=== PATIENT | male | born 1965 | race Caucasian/White ===

== ENCOUNTER 2020-09-19 11:12 | Inpatient (IN) | payer OTHER, SELFPAY ==
[2020-09-19 11:22] VITALS: PULSE 77; RESP 18; TEMP 36.3; O2SAT 97; BMI 29.5
--- NOTE | 2020-09-19 11:53 | XRR_ITS ---
PROCEDURE INFORMATION: Exam: XR Chest, 1 View Exam date and time: 09/19/2020 11:54 AM Age: 55 years old Clinical indication: Condition or disease; Other: Syncope TECHNIQUE: Imaging protocol: XR of the chest Views: 1 view. COMPARISON: No relevant prior studies available. FINDINGS: Lungs: Bilateral pulmonary infiltrates are present especially in the perihilar regions and upper lobes. There is also blunting of the costophrenic angles consistent with small effusions. These findings could be due to heart failure with perihilar pulmonary edema. Clinical correlation is advised. Superimposed pneumonia cannot be excluded. Pleural space: See Lungs finding. Heart/Mediastinum: The cardiac silhouette is enlarged. Bones/joints: Unremarkable. XR/XR chest 1V portable [id number] IMPRESSION: Cardiac enlargement with bilateral perihilar infiltrates and small effusions probably due to heart failure but superimposed pneumonia cannot be excluded.
--- NOTE | 2020-09-19 11:54 | ECG_ITS ---
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 Measurements Intervals [place] Rate: 102 P: MI: -1 QRS: 27 QRSD: 109 T: 67 QT: 366 QTc: 477 Interpretive Statements ATRIAL FIBRILLATION WITH RAPID VENTRICULAR RESPONSE POSSIBLE ANTERIOR MYOCARDIAL INFARCTION , PROBABLY OLD [30 ms Q WAVE IN V3/V4, OR R < 0.2 mV IN V4] ABNORMAL RHYTHM ECG No previous ECG available for comparison Electronically Signed On 09-19-2020 12:55:49 CDT by Marlene Tijerina M.D. [id number] f
--- NOTE | 2020-09-19 12:20 | ECG_ITS ---
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 Measurements Intervals [place] Rate: 84 P: ME: -1 QRS: 25 QRSD: 102 T: 44 QT: 402 QTc: 476 Interpretive Statements ATRIAL FIBRILLATION POSSIBLE ANTERIOR MYOCARDIAL INFARCTION , PROBABLY OLD [30 ms Q WAVE IN V3/V4, OR R < 0.2 mV IN V4] ABNORMAL RHYTHM ECG INTERPRETATION BASED ON A DEFAULT AGE OF 40 YEARS Compared to ECG 09/19/2020 12:45:09 No significant changes Electronically Signed On 09-19-2020 21:45:36 CDT by Phyllis Grayson M.D. [id number]
--- NOTE | 2020-09-19 12:37 | ED_ITS ---
HPI - SOB/Dyspnea General: Chief Complaint: Shortness of Breath/Dyspnea Stated Complaint: COUGH/SOB Time Seen by Provider: 09/19/20 11:30 History of Present Illness: HPI Narrative: 55-year-old male patient presents to the emergency department at the recommendation of the GA. He reports increased shortness of breath, worse with exertion x2 weeks. He reports small cough first couple of days then cough resolved. He reports feels weak and tired. He denies fever chills. He reports heart palpitations that come and go. MD elicited complaint: shortness of breath PFSH ED PFSH: Medical History No pertinent past medical history Surgical History Status post bilateral knee replacements Family History Grandmother Hypertension Social History Smoking and tobacco status: former smoker Quit status (tobacco): has quit using tobacco Alcohol intake: former Year of sobriety/quit date alcohol: 1 month ago Former alcohol use details: Half a pint of vodka, beer use daily Substance/Drug Use: never Course ED course: Heart rate irregular, tachycardic, suspect new onset atrial fib rillation, case discussed with Dr. Mahmood with transfer of care. Vital Signs: Vital signs: Vital Signs Temperature 97.8 F 09/20/20 03:44 Pulse Rate 76 09/20/20 03:44 Respiratory Rate 24 H 09/20/20 03:44 Blood Pressure 131/83 09/20/20 03:44 Pulse Oximetry 95 09/20/20 03:44 MDM - SOB/Dyspnea Lab Data: Labs: Lab Results 09/19/20 09/19/20 09/19/20 Range/Units 12:51 12:51 12:51 WBC 12.3 H (4.0-10.0) 10^3/ uL RBC 4.13 (4.1-5.3) 10^6/u L Hgb 13.0 (11.7-16.6) g/dL Hct 39.9 L (42.0-52.0) % MCV 96.6 H (80-94) fL MCH 31.5 (28.0-34.0) pg MCHC 32.6 (30.0-36.0) g/dL RDW 12.2 (12.1-15.1) % Plt Count 325 (130-400) 10^3/c mm MPV 9.1 (7.4-10.4) fL Neut % (Auto) 71.5 % Lymph % (Auto) 17.9 % [place] % (Auto) 8.2 % Eos % (Auto) 1.5 % Baso % (Auto) 0.5 % Neut # (Auto) 8.80 H (1.8-7.7) 10^3/u L Lymph # (Auto) 2.2 (0.8-4.8) 10^3/u L [place] # (Auto) 1.0 H (0.2-0.9) 10^3/u L Eos # (Auto) 0.2 (0.0-0.8) 10^3/u L Baso # (Auto) 0.1 (0.0-0.1) 10^3/u L Nucleated RBC % (a uto) 0 % Nucleated RBCs # 0.0 /100WBC D-Dimer (0-0.59) ug/mIFE U Sodium 136 (136-145) mmol/L Potassium 4.5 (3.5-5.1) mmol/L Chloride 101 (98-107) mmol/L Carbon Dioxide 23 (22-29) mmol/L Anion Gap 16.5 (5-19) BUN 17 (6-20) mg/dL Creatinine 0.8 (0.7-1.2) mg/dL GFR Calculation 100.4 (90-130) mL/min Glucose 102 (65-115) mg/dL Calculated Osmolal ity 284 L (285-295) mOsm/k g Calcium 8.5 (8.5-10.5) mg/dL Ferritin (30-400) ng/mL Total Bilirubin 0.6 (0.15-1.2) mg/dL AST 29 (0-40) U/L ALT 35 (0-41) U/L Alkaline Phosphata se 78 (40-130) IU/L Troponin T Baselin e 54 H (0-15) ng/L C-Reactive Protein (0.0-4.9) mg/L NT-Pro-B Natriuret Pep 5080 H (0-125) pg/mL Total Protein 5.9 L (6.6-8.7) g/dL Albumin 3.6 (3.5-5.2) g/dL Globulin 2.3 (1.3-4.6) g/dL Procalcitonin (0-0.5) ng/mL TSH (0.27-4.20) uIU/ mL Free T4 (0.82-1.77) ng/d L Ethyl Alcohol (0-10) mg/dL SARS-CoV-2 Ag (Rap id) (Negative) 09/19/20 09/19/20 09/19/20 Range/Units 12:51 12:51 12:51 WBC (4.0-10.0) 10^3/ uL RBC (4.1-5.3) 10^6/u L Hgb (11.7-16.6) g/dL Hct (42.0-52.0) % MCV (80-94) fL MCH (28.0-34.0) pg MCHC (30.0-36.0) g/dL RDW (12.1-15.1) % Plt Count (130-400) 10^3/c mm MPV (7.4-10.4) fL Neut % (Auto) % Lymph % (Auto) % [place] % (Auto) % Eos % (Auto) % Baso % (Auto) % Neut # (Auto) (1.8-7.7) 10^3/u L Lymph # (Auto) (0.8-4.8) 10^3/u L [place] # (Auto) (0.2-0.9) 10^3/u L Eos # (Auto) (0.0-0.8) 10^3/u L Baso # (Auto) (0.0-0.1) 10^3/u L Nucleated RBC % (a uto) % Nucleated RBCs # /100WBC D-Dimer 1.66 H (0-0.59) ug/mIFE U Sodium (136-145) mmol/L Potassium (3.5-5.1) mmol/L Chloride (98-107) mmol/L Carbon Dioxide (22-29) mmol/L Anion Gap (5-19) BUN (6-20) mg/dL Creatinine (0.7-1.2) mg/dL GFR Calculation (90-130) mL/min Glucose (65-115) mg/dL Calculated Osmolal ity (285-295) mOsm/k g Calcium (8.5-10.5) mg/dL Ferritin 273 (30-400) ng/mL Total Bilirubin (0.15-1.2) mg/dL AST (0-40) U/L ALT (0-41) U/L Alkaline Phosphata se (40-130) IU/L Troponin T Baselin e (0-15) ng/L C-Reactive Protein 54.1 H (0.0-4.9) mg/L NT-Pro-B Natriuret Pep (0-125) pg/mL Total Protein (6.6-8.7) g/dL Albumin (3.5-5.2) g/dL Globulin (1.3-4.6) g/dL Procalcitonin 0.12 (0-0.5) ng/mL TSH 2.45 (0.27-4.20) uIU/ mL Free T4 1.31 (0.82-1.77) ng/d L Ethyl Alcohol < 10 (0-10) mg/dL SARS-CoV-2 Ag (Rap id) (Negative) 09/19/20 Range/Units 13:45 WBC (4.0-10.0) 10^3/ uL RBC (4.1-5.3) 10^6/u L Hgb (11.7-16.6) g/dL Hct (42.0-52.0) % MCV (80-94) fL MCH (28.0-34.0) pg MCHC (30.0-36.0) g/dL RDW (12.1-15.1) % Plt Count (130-400) 10^3/c mm MPV (7.4-10.4) fL Neut % (Auto) % Lymph % (Auto) % [place] % (Auto) % Eos % (Auto) % Baso % (Auto) % Neut # (Auto) (1.8-7.7) 10^3/u L Lymph # (Auto) (0.8-4.8) 10^3/u L [place] # (Auto) (0.2-0.9) 10^3/u L Eos # (Auto) (0.0-0.8) 10^3/u L Baso # (Auto) (0.0-0.1) 10^3/u L Nucleated RBC % (a uto) % Nucleated RBCs # /100WBC D-Dimer (0-0.59) ug/mIFE U Sodium (136-145) mmol/L Potassium (3.5-5.1) mmol/L Chloride (98-107) mmol/L Carbon Dioxide (22-29) mmol/L Anion Gap (5-19) BUN (6-20) mg/dL Creatinine (0.7-1.2) mg/dL GFR Calculation (90-130) mL/min Glucose (65-115) mg/dL Calculated Osmolal ity (285-295) mOsm/k g Calcium (8.5-10.5) mg/dL Ferritin (30-400) ng/mL Total Bilirubin (0.15-1.2) mg/dL AST (0-40) U/L ALT (0-41) U/L Alkaline Phosphata se (40-130) IU/L Troponin T Baselin e (0-15) ng/L C-Reactive Protein (0.0-4.9) mg/L NT-Pro-B Natriuret Pep (0-125) pg/mL Total Protein (6.6-8.7) g/dL Albumin (3.5-5.2) g/dL Globulin (1.3-4.6) g/dL Procalcitonin (0-0.5) ng/mL TSH (0.27-4.20) uIU/ mL Free T4 (0.82-1.77) ng/d L Ethyl Alcohol (0-10) mg/dL SARS-CoV-2 Ag (Rap id) Negative (Negative) Discharge Plan Discharge Patient Disposition: Admitted As Inpatient Admit Provider: Param Montague Clinical Impression: New onset atrial fibrillation, CHF (congestive heart failure), NSTEMI (non-ST elevated myocardial infarction), Person under investigation for COVID-19 Condition: Stable Discharge Date/Time: 09/19/20 16:35 Coding Level of Care Code ED Electromatic Typist for Chg Fwd
[2020-09-19 12:56] LABS: Basophils # 0.1 10^3/uL (0.0-0.1); Basophils % 0.5 %; Eosinophils # 0.2 10^3/uL (0.0-0.8); Eosinophils % 1.5 %; Hematocrit 39.9 % (42.0-52.0); Lymphocytes # 2.2 10^3/uL (0.8-4.8); Lymphocytes % 17.9 %; Mean Corpuscular HGB Conc 32.6 g/dL (30.0-36.0); Mean Corpuscular Hemoglobin 31.5 pg (28.0-34.0); Mean Corpuscular Volume 96.6 fL (80-94); Mean Platelet Volume 9.1 fL (7.4-10.4); Monocytes % 8.2 %; Neutrophils % 71.5 %; Nucleated Red Blood Cells % 0 %; Platelet Count 325 10^3/cmm (130-400); Red Blood Count 4.13 10^6/uL (4.1-5.3); Red Cell Distribution Width 12.2 % (12.1-15.1); White Blood Count 12.3 10^3/uL (4.0-10.0)
[2020-09-19 13:22] LABS: Troponin(5th) Baseline 54 ng/L (0-15)
[2020-09-19 13:39] LABS: Alanine Aminotransferase 35 U/L (0-41); Albumin Level 3.6 g/dL (3.5-5.2); Alkaline Phosphatase 78 IU/L (40-130); Anion Gap 16.5 (5-19); Aspartate Amino Transferase 29 U/L (0-40); Blood Urea Nitrogen 17 mg/dL (6-20); Calcium 8.5 mg/dL (8.5-10.5); Carbon Dioxide 23 mmol/L (22-29); Chloride 101 mmol/L (98-107); Globulin 2.3 g/dL (1.3-4.6); Glomerular Filtration Rate 100.4 mL/min (90-130); Glucose 102 mg/dL (65-115); NT Pro B Type Natriuretic Pept 5080 pg/mL (0-125); Osmolality Calculated 284 mOsm/kg (285-295); Potassium 4.5 mmol/L (3.5-5.1); Sodium 136 mmol/L (136-145); Total Bilirubin 0.6 mg/dL (0.15-1.2); Total Protein 5.9 g/dL (6.6-8.7)
[2020-09-19] MEDS: metoprolol tartrate 25 mg Tablet PO ×2 (14:35→18:53)
[2020-09-19] MEDS: metoprolol tartrate 1 mg/1 mL SDV 5 mL 2.5 MG IV (14:38)
[2020-09-19 15:04] LABS: Free T4 Free Thyroxine 1.31 ng/dL (0.82-1.77); Thyroid Stimulating Hormone 2.45 uIU/mL (0.27-4.20)
[2020-09-19 15:04] LABS: SARS Covid-2 Antigen Negative (Negative)
[2020-09-19 15:20] LABS: Troponin 5 2HR Delta 0 ABS# (0-10)
--- NOTE | 2020-09-19 16:10 | PM.HP ---
Providers/Chief Complaint Admitting Physician: Param Montague MD Chief Complaint: COUGH/SOB History of Present Illness Zach Austin is a 55 year old male with no significant past medical history, quit smoking a month ago, who presents to [facility] for 2-week history of shortness of breath, and chest pain. Patient tells me that a month ago he quit smoking, for about 2 weeks he had a hacking productive cough, he felt better after. In the meantime, he tells me that he woke up 1 morning, he felt like he had the flu, felt feverish, had chills, sweats, joint pains, but that only lasted less than 24 hours, and he got better Then he started to develop shortness of breath, he tells me that it was shortness of breath with exertion, he tells me that when he would get out and walk to his car by the time he would get to his car, he would be bent over, trying to catch his breath, improved with rest, no active wheezing, he has no diagnosis of COPD or emphysema, does not use any inhalers, he also states that he would have some chest tightness which would improve with rest, felt a bit lightheaded. Patient tells me that over the progressive next 2 weeks, the shortness of breath would persist, with minimal exertion, he also had orthopnea and paroxysmal nocturnal dyspnea thus he sought medical attention at the [facility], they did an EKG and found atrial fibrillation, so they told him to come to the emergency room Patient also reports chest pain at the end of exertion, describes it more as a chest tightness, improved with rest, he does not know the cardiac history of his mom or dad because he does not speak to them, his grandmother has hypertension, tells me his sister drinks and smokes Patient tells me that he [place] [address] [place], he tries to remain self isolated, no known exposure to COVID-19, 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, 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, 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 He also tells me that over the Covid isolation, he has been smoking more and drinking more, drinking half a pint of vodka and home brewed beer daily, but quit a month ago Review of Systems Const: Denies: fever(s), chills, fatigue or malaise Eyes: Denies: change in vision or blurry vision ENMT: Denies: nasal congestion Card: Reports: chest pain, irregular heart rhythm, lightheadedness, dyspnea on exertion and orthopnea; Denies: edema, syncope or pre-syncope Resp: Reports: dyspnea; Denies: productive cough, non-productive cough or wheezing GI: Denies: abdominal pain, nausea, vomiting, hematemesis, diarrhea, constipation, hematochezia or melena : Denies: flank pain, difficulty urinating, dysuria or urinary frequency Musc: Denies: neck pain or back pain Skin/Breast: Denies: rash Neuro: Denies: headache(s), dizziness or vertigo Psych: Denies: anxiety or depression Endo: Denies: polyuria or polydipsia Medications/Allergies Home Medications Medication Instructions Recorded Confirmed Last Taken Type multivitamin [Multiple Vitamins] 1 tab PO DAILY 09/19/20 09/19/20 Unknown History Allergies Allergy/AdvReac Type Severity Reaction Status Date / Time No Known Allergies Allergy Verified 09/19/20 16:11 PFSH Acute PFSH: Medical History (Updated 09/19/20 @ 16:21 by Param oMntague MD) No pertinent past medical history Surgical History (Updated 09/19/20 @ 16:17 by Param Montague MD) Status post bilateral knee replacements Family History (Updated 09/19/20 @ 16:18 by Param Montague MD) Grandmother Hypertension Social History (Updated 09/19/20 @ 16:18 by Param Motnague MD) Smoking and tobacco status: former smoker Quit status (tobacco): has quit using tobacco Alcohol intake: former Year of sobriety/quit date alcohol: 1 month ago Former alcohol use details: Half a pint of vodka, beer use daily Substance/Drug Use: never Vitals/I&O/Wt Last Vital Signs Temp 97.3 F L 09/19/20 11:22 Pulse 77 09/19/20 11:22 Resp 18 09/19/20 11:22 Pulse Ox 97 09/19/20 11:22 Weight last 48 hrs Weight 93.44 kg Physical Exam Const: COMMON NORMALS: no acute distress and patient oriented x3 GENERAL APPEARANCE: cooperative and comfortable HENMT: COMMON NORMALS: normocephalic HEAD & SCALP: normocephalic Eye: COMMON NORMALS: EOMs intact bilaterally GENERAL EYE: appearance normal, both eyes and all related structures PUPIL: Yes Equal, round and reactive pupils present DIRECT OPHTHALMOSCOPY: Yes no papilledema Neck/C-Spine: COMMON NORMALS: full ROM, no lymphadenopathy, no JVD and Thyroid normal THYROID: Thyroid normal Lymph: LYMPHATIC: no lymphadenopathy noted Resp: COMMON NORMALS: normal respiratory effort, No retractions, No use of accessory muscles and clear to auscultation bilaterally AUSCULTATION: crackles and rhonchi Cardio: COMMON NORMALS: no JVD, regular rate, regular rhythm, S1 normal heart sound present, S2 normal heart sound present, No gallops present (Cardio), No clicks present (Cardio) and No murmurs present (Cardio) RATE: regular rate RHYTHM: regular rhythm HEART SOUNDS: S1 normal heart sound present and S2 normal heart sound present GI: COMMON NORMALS: Normal to inspection, nondistended, normoactive bowel sounds present, Soft to palpation, non-tender and No hepatosplenomegaly present PALPATION: Yes Soft to palpation and Yes No hepatosplenomegaly present Extremity: COMMON NORMALS: normal to inspection, full ROM and no pedal edema Neuro: COMMON NORMALS: patient oriented x3, CN's II-XII intact bilaterally, moves all extremities and no focal motor deficits Psych: COMMON NORMALS: mental status grossly normal, Normal thought process present and cooperative THOUGHT PROCESS: Normal thought process present Data : 09/19/20 12:51 09/19/20 12:51 A&P Assessment and plan (1) Shortness of breath: Multifactorial: Related to new onset atrial fibrillation, new onset CHF, NSTEMI, atypical pneumonia, person under investigation for COVID-19 -New onset atrial fibrillation, EKG shows A. fib, no known cardiac history, is a smoker, does have CAD risk factors -NSTEMI, likely type II supply demand ischemia from atrial fibrillation, and atypical pneumonia. 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 PLAN: -Admit to cardiac stepdown unit -COVID-19 isolation precautions -Telemetry monitoring -Metoprolol 25 mg twice daily -Eliquis 5 mg twice daily -Cardiac echocardiogram ordered -Lasix 40 mg IV every 24 hours, monitor ins and outs -TSH within normal limits, will check magnesium -Azithromycin and Rocephin, sputum cultures, blood cultures -Covid RT-PCR, ferritin, pro-Dariusz, CRP, D-dimer, influenza -Ordered a CT of the chest -Monitor for chest pain, aspirin, statin, monitor troponins, serial EKGs -We will consider cardiac stress testing based on above work-up Status: Acute (2) New onset atrial fibrillation: Status: Acute (3) Atypical pneumonia: Status: Acute (4) CHF (congestive heart failure): Status: Acute (5) NSTEMI (non-ST elevated myocardial infarction): Status: Acute (6) Person under investigation for COVID-19: Status: Acute (7) Chest pain: Status: Acute Attestations Medical Necessity Statement*: Patient requires hospitalization, inpatient, greater than 2 midnights, for new onset atrial fibrillation, new onset CHF, atypical pneumonia, personal investigation for COVID-19,nstemi Coding Level of Care Code Acute Director Of Blood for [facility] Diagnoses Shortness of breath R06.02 New onset atrial fibrillation I48.91 Atypical pneumonia J18.9 CHF (congestive heart failure) I50.9 NSTEMI (non-ST elevated myocardial infarction) I21.4 Person under investigation for COVID-19 Z20.828 Chest pain R07.9
[2020-09-19 16:20] VITALS: BP 126/88; PULSE 110; RESP 16; O2SAT 96
[2020-09-19 16:43] VITALS: BP 124/84; PULSE 32; RESP 96; TEMP 35.5; O2SAT 94
[2020-09-19 16:48] LABS: D Dimer 1.66 ug/mIFEU (0-0.59)
[2020-09-19 16:54] LABS: Procalcitonin 0.12 ng/mL (0-0.5)
[2020-09-19] MEDS: FUROsemide 10 mg/mL SDV 4mL 40 MG IVP (17:01)
[2020-09-19] MEDS: aspirin 81 mg EC Tablet PO (17:01)
[2020-09-19] MEDS: cefTRIAXone 1,000 MG in sodium chloride 0.9% (plus) 50 ML 100 MG IV (17:05)
[2020-09-19 17:06] LABS: C Reactive Protein 54.1 mg/L (0.0-4.9); Ferritin 273 ng/mL (30-400)
[2020-09-19 17:08] LABS: Alcohol Level < 10 mg/dL (0-10)
[2020-09-19 17:11] LABS: Influenza A by IFA Negative (Negative); Influenza B by IFA Negative (Negative)
--- NOTE | 2020-09-19 17:15 | W.ED.SOB ---
HPI - SOB/Dyspnea General: Chief Complaint: Shortness of Breath/Dyspnea Stated Complaint: COUGH/SOB Time Seen by Provider: 09/19/20 11:30 History of Present Illness: HPI Narrative: 55-year-old male comes in complaining of shortness of breath. He said this on and off for the last 2 weeks at times he will get a tight sensation in his chest the cough is been part of this as well although has been nonproductive, it was present first couple of days and then resolved. Is not had any fever sweats or chills he will get palpitations that kind of come and go. He has noticed that with minimal exertion he is more short of breath that he is used to accompanied by sensation of palpitations and rapid heart rate. MD elicited complaint: shortness of breath Onset (ago): week(s) (2) Timing: intermittent Severity: moderate Exacerbating factors: exertion Relieving factors: rest Associated symptoms: Reports chest pain (Tightness), cough (present initially then resolved) and palpitations; Deny abdominal pain, chest congestion, diaphoresis, dizziness, extremity pain, fever(s), hemoptysis, lightheadedness, myalgias, nausea, orthopnea, paresthesias, polydipsia, polyuria, rash, sense of impending doom, syncope or vomiting Treatment prior to arrival: none Review of Systems Const: Denies: fever(s) or diaphoresis ENMT: Denies: throat pain, ear or mastoid pain, nasal discharge or nasal congestion Card: Reports: chest pain (Tightness) and palpitations; Denies: lightheadedness, syncope or orthopnea Resp: Denies: hemoptysis or chest congestion GI: Denies: abdominal pain, nausea or vomiting : Denies: flank pain, dysuria, urinary frequency or urinary urgency Musc: Denies: extremity pain Skin/Breast: Denies: rash or pruritus Neuro: Denies: dizziness Endo: Denies: polyuria or polydipsia PFSH ED PFSH: Medical History No pertinent past medical history Surgical History Status post bilateral knee replacements Family History Grandmother Hypertension Social History Smoking and tobacco status: former smoker Quit status (tobacco): has quit using tobacco Alcohol intake: former Year of sobriety/quit date alcohol: 1 month ago Former alcohol use details: Half a pint of vodka, beer use daily Substance/Drug Use: never Physical Exam Const: COMMON NORMALS: no acute distress GENERAL APPEARANCE: cooperative and comfortable ORIENTATION/CONSCIOUSNESS: Yes awake, Yes oriented to person, Yes oriented to place and Yes oriented to time HENMT: COMMON NORMALS: normocephalic, atraumatic and hearing grossly normal bilaterally HEAD & SCALP: normocephalic and atraumatic Eye: COMMON NORMALS: Equal, round and reactive pupils present, EOMs intact bilaterally, conjunctivae normal and no scleral icterus CONJUNCTIVA: Yes conjunctivae normal PUPIL: Yes Equal, round and reactive pupils present Neck/C-Spine: COMMON NORMALS: full ROM, no lymphadenopathy and supple Lymph: LYMPHATIC: no lymphadenopathy noted and no lymphedema noted Resp: COMMON NORMALS: normal respiratory effort, No retractions, No use of accessory muscles and clear to auscultation bilaterally AUSCULTATION: clear to auscultation bilaterally Cardio: RATE: tachycardic RHYTHM: abnormal rhythm irregularly irregular GI: COMMON NORMALS: Soft to palpation and No hepatosplenomegaly present AUSCULTATION: Yes normoactive bowel sounds PALPATION: Yes Soft to palpation, No Tenderness to palpation present (GI), No Guarding due to palpation present (GI) and Yes No hepatosplenomegaly present Extremity: COMMON NORMALS: normal to inspection, capillary refill normal, no clubbing, cyanosis or edema, no calf tenderness and no pedal edema Neuro: SENSORIUM/ORIENTATION: Yes oriented to person, Yes oriented to place and Yes oriented to time Skin: COMMON NORMALS: no rashes or lesions noted GENERAL SKIN EXAM: no rashes or lesions noted Course Vital Signs: Vital signs: Vital Signs Temperature 95.9 F L 09/19/20 16:43 Pulse Rate 32 L 09/19/20 16:43 Respiratory Rate 96 H 09/19/20 16:43 Blood Pressure 124/84 09/19/20 16:43 Pulse Oximetry 94 09/19/20 16:43 MDM - SOB/Dyspnea MDM Narrative: Medical decision making narrative: Patient has shortness of breath with exertion but no consistent chest pain his troponin is slightly elevated I think it is probably demand from his A. fib discussed with the hospitalist will admit him for new onset A. fib chest x-ray read as question of pneumonia versus congestive heart failure his BNP is elevated I suspect it is more congestive heart failure based on his symptoms he had given and history. Orders written Dr. Floyd will see the patient. Patient was swabbed for Covid. Lab Data: Labs: Lab Results 09/19/20 09/19/20 09/19/20 Range/Units 12:51 12:51 12:51 WBC 12.3 H (4.0-10.0) 10^3/ uL RBC 4.13 (4.1-5.3) 10^6/u L Hgb 13.0 (11.7-16.6) g/dL Hct 39.9 L (42.0-52.0) % MCV 96.6 H (80-94) fL MCH 31.5 (28.0-34.0) pg MCHC 32.6 (30.0-36.0) g/dL RDW 12.2 (12.1-15.1) % Plt Count 325 (130-400) 10^3/c mm MPV 9.1 (7.4-10.4) fL Neut % (Auto) 71.5 % Lymph % (Auto) 17.9 % [place] % (Auto) 8.2 % Eos % (Auto) 1.5 % Baso % (Auto) 0.5 % Neut # (Auto) 8.80 H (1.8-7.7) 10^3/u L Lymph # (Auto) 2.2 (0.8-4.8) 10^3/u L [place] # (Auto) 1.0 H (0.2-0.9) 10^3/u L Eos # (Auto) 0.2 (0.0-0.8) 10^3/u L Baso # (Auto) 0.1 (0.0-0.1) 10^3/u L Nucleated RBC % (a uto) 0 % Nucleated RBCs # 0.0 /100WBC D-Dimer (0-0.59) ug/mIFE U Sodium 136 (136-145) mmol/L Potassium 4.5 (3.5-5.1) mmol/L Chloride 101 (98-107) mmol/L Carbon Dioxide 23 (22-29) mmol/L Anion Gap 16.5 (5-19) BUN 17 (6-20) mg/dL Creatinine 0.8 (0.7-1.2) mg/dL GFR Calculation 100.4 (90-130) mL/min Glucose 102 (65-115) mg/dL Calculated Osmolal ity 284 L (285-295) mOsm/k g Calcium 8.5 (8.5-10.5) mg/dL Ferritin (30-400) ng/mL Total Bilirubin 0.6 (0.15-1.2) mg/dL AST 29 (0-40) U/L ALT 35 (0-41) U/L Alkaline Phosphata se 78 (40-130) IU/L Troponin T Baselin e 54 H (0-15) ng/L C-Reactive Protein (0.0-4.9) mg/L NT-Pro-B Natriuret Pep 5080 H (0-125) pg/mL Total Protein 5.9 L (6.6-8.7) g/dL Albumin 3.6 (3.5-5.2) g/dL Globulin 2.3 (1.3-4.6) g/dL Procalcitonin (0-0.5) ng/mL TSH (0.27-4.20) uIU/ mL Free T4 (0.82-1.77) ng/d L Ethyl Alcohol (0-10) mg/dL SARS-CoV-2 Ag (Rap id) (Negative) 09/19/20 09/19/20 09/19/20 Range/Units 12:51 12:51 12:51 WBC (4.0-10.0) 10^3/ uL RBC (4.1-5.3) 10^6/u L Hgb (11.7-16.6) g/dL Hct (42.0-52.0) % MCV (80-94) fL MCH (28.0-34.0) pg MCHC (30.0-36.0) g/dL RDW (12.1-15.1) % Plt Count (130-400) 10^3/c mm MPV (7.4-10.4) fL Neut % (Auto) % Lymph % (Auto) % [place] % (Auto) % Eos % (Auto) % Baso % (Auto) % Neut # (Auto) (1.8-7.7) 10^3/u L Lymph # (Auto) (0.8-4.8) 10^3/u L [place] # (Auto) (0.2-0.9) 10^3/u L Eos # (Auto) (0.0-0.8) 10^3/u L Baso # (Auto) (0.0-0.1) 10^3/u L Nucleated RBC % (a uto) % Nucleated RBCs # /100WBC D-Dimer 1.66 H (0-0.59) ug/mIFE U Sodium (136-145) mmol/L Potassium (3.5-5.1) mmol/L Chloride (98-107) mmol/L Carbon Dioxide (22-29) mmol/L Anion Gap (5-19) BUN (6-20) mg/dL Creatinine (0.7-1.2) mg/dL GFR Calculation (90-130) mL/min Glucose (65-115) mg/dL Calculated Osmolal ity (285-295) mOsm/k g Calcium (8.5-10.5) mg/dL Ferritin 273 (30-400) ng/mL Total Bilirubin (0.15-1.2) mg/dL AST (0-40) U/L ALT (0-41) U/L Alkaline Phosphata se (40-130) IU/L Troponin T Baselin e (0-15) ng/L C-Reactive Protein 54.1 H (0.0-4.9) mg/L NT-Pro-B Natriuret Pep (0-125) pg/mL Total Protein (6.6-8.7) g/dL Albumin (3.5-5.2) g/dL Globulin (1.3-4.6) g/dL Procalcitonin 0.12 (0-0.5) ng/mL TSH 2.45 (0.27-4.20) uIU/ mL Free T4 1.31 (0.82-1.77) ng/d L Ethyl Alcohol < 10 (0-10) mg/dL SARS-CoV-2 Ag (Rap id) (Negative) 09/19/20 Range/Units 13:45 WBC (4.0-10.0) 10^3/ uL RBC (4.1-5.3) 10^6/u L Hgb (11.7-16.6) g/dL Hct (42.0-52.0) % MCV (80-94) fL MCH (28.0-34.0) pg MCHC (30.0-36.0) g/dL RDW (12.1-15.1) % Plt Count (130-400) 10^3/c mm MPV (7.4-10.4) fL Neut % (Auto) % Lymph % (Auto) % [place] % (Auto) % Eos % (Auto) % Baso % (Auto) % Neut # (Auto) (1.8-7.7) 10^3/u L Lymph # (Auto) (0.8-4.8) 10^3/u L [place] # (Auto) (0.2-0.9) 10^3/u L Eos # (Auto) (0.0-0.8) 10^3/u L Baso # (Auto) (0.0-0.1) 10^3/u L Nucleated RBC % (a uto) % Nucleated RBCs # /100WBC D-Dimer (0-0.59) ug/mIFE U Sodium (136-145) mmol/L Potassium (3.5-5.1) mmol/L Chloride (98-107) mmol/L Carbon Dioxide (22-29) mmol/L Anion Gap (5-19) BUN (6-20) mg/dL Creatinine (0.7-1.2) mg/dL GFR Calculation (90-130) mL/min Glucose (65-115) mg/dL Calculated Osmolal ity (285-295) mOsm/k g Calcium (8.5-10.5) mg/dL Ferritin (30-400) ng/mL Total Bilirubin (0.15-1.2) mg/dL AST (0-40) U/L ALT (0-41) U/L Alkaline Phosphata se (40-130) IU/L Troponin T Baselin e (0-15) ng/L C-Reactive Protein (0.0-4.9) mg/L NT-Pro-B Natriuret Pep (0-125) pg/mL Total Protein (6.6-8.7) g/dL Albumin (3.5-5.2) g/dL Globulin (1.3-4.6) g/dL Procalcitonin (0-0.5) ng/mL TSH (0.27-4.20) uIU/ mL Free T4 (0.82-1.77) ng/d L Ethyl Alcohol (0-10) mg/dL SARS-CoV-2 Ag (Rap id) Negative (Negative) Discharge Plan Discharge Patient Disposition: Admitted As Inpatient Admit Provider: Param Montague Clinical Impression: New onset atrial fibrillation, CHF (congestive heart failure), NSTEMI (non-ST elevated myocardial infarction), Person under investigation for COVID-19 Condition: Stable Interventions: ED Discharge Assessment Last Done: 09/19/20 16:20 ED Charges Last Done: 09/19/20 16:20 Discharge Date/Time: 09/19/20 16:35 Coding Level of Care Code ED Molding Utility Worker for Geoff Sparrow
[2020-09-19] MEDS: azithromycin 500 MG in sodium chloride 0.9% 250 ML 250 MG IV (18:00)
--- NOTE | 2020-09-19 18:04 | PC.NURSE ---
Addendum entered by Viviana Mccracken RN 09/19/20 18:20: Dr mckinney notified of patients refusal Original Note: patient refusing PTC covid testing patient also refusing CT of lungs at this time
--- NOTE | 2020-09-19 18:05 | PC.NURSE ---
1700 patients grey brought to unit at this time for visiting hours after patient informed that he would be swabbed for covid again for a send out test patient was asked to contact to let her know she would not be able to visit until a negative result was back. patient demanding to see patient and speak with the doctor patient take to the door maintaining a [address] mckinney was able to speak with her via telephone calmed and left peacefully however explained to patient not to let them do unnecessary testing
--- NOTE | 2020-09-19 18:20 | ECG_ITS ---
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 Measurements Intervals [place] Rate: 90 P: MD: -1 QRS: 64 QRSD: 105 T: 152 QT: 383 QTc: 470 Interpretive Statements ATRIAL FIBRILLATION MODERATE T-WAVE ABNORMALITY, CONSIDER LATERAL ISCHEMIA [-0.1+ mV T WAVE IN I/aVL/V5/V6] Compared to ECG 09/19/2020 14:49:32 T-wave abnormality now present Possible ischemia now present Myocardial infarct finding no longer present Electronically Signed On 09-20-2020 18:34:14 CDT by Seun Rinaldi M.D. [id number]
[2020-09-19] MEDS: apixaban 5 mg Tablet PO (18:53)
[2020-09-19 20:00] VITALS: BP 122/80; PULSE 90; RESP 25; O2SAT 91
[2020-09-19 20:07] LABS: Troponin 5 6HR 56.78 ng/L (0-15); Troponin 5 6HR Delta 2.78 ng/L (0-12)
[2020-09-19] MEDS: atorvastatin 40 mg Tablet PO (20:19)
--- NOTE | 2020-09-19 21:00 | PC.NURSE ---
Patient placed on 2L nasal cannula for complaint of shortness of breath and oxygen saturation of 86 to 90 percent. After oxygen applied patient saturated 93%.
[2020-09-19 22:45] VITALS: PULSE 88; O2SAT 92
[2020-09-19 23:10] VITALS: BP 135/91; PULSE 101; RESP 21; TEMP 36.7; O2SAT 90
[2020-09-20 03:44] VITALS: BP 131/83; PULSE 76; RESP 24; TEMP 36.6; O2SAT 95
[2020-09-20 04:26] LABS: Glucose Point of Care 110 mg/dL (70-110)
[2020-09-20 05:06] LABS: Basophils # 0.1 10^3/uL (0.0-0.1); Basophils % 0.8 %; Eosinophils # 0.3 10^3/uL (0.0-0.8); Eosinophils % 2.6 %; Hematocrit 38.7 % (42.0-52.0); Hemoglobin 12.4 g/dL (11.7-16.6); Lymphocytes # 2.7 10^3/uL (0.8-4.8); Lymphocytes % 25.3 %; Mean Corpuscular Hemoglobin 31.2 pg (28.0-34.0); Mean Corpuscular Volume 97.2 fL (80-94); Monocytes % 9.7 %; Neutrophils # 6.48 10^3/uL (1.8-7.7); Neutrophils % 61.3 %; Nucleated Red Blood Cells % 0 %; Platelet Count 315 10^3/cmm (130-400); Red Blood Count 3.98 10^6/uL (4.1-5.3); Red Cell Distribution Width 12.2 % (12.1-15.1); White Blood Count 10.6 10^3/uL (4.0-10.0)
[2020-09-20 05:38] LABS: Chol HDL Ratio 3.48 mg/dL (1.0-5.00); Cholesterol 108 mg/dL (0-200); HDL Cholesterol 31 mg/dL (60-100); LDL Cholesterol Calculated 62 mg/dL (50-129); Magnesium 2.2 mg/dL (1.7-2.3); Triglycerides 77 mg/dL (0-150)
[2020-09-20 05:54] LABS: Alanine Aminotransferase 34 U/L (0-41); Albumin Level 3.1 g/dL (3.5-5.2); Alkaline Phosphatase 75 IU/L (40-130); Anion Gap 14.1 (5-19); Aspartate Amino Transferase 22 U/L (0-40); Blood Urea Nitrogen 18 mg/dL (6-20); Calcium 8.7 mg/dL (8.5-10.5); Carbon Dioxide 23 mmol/L (22-29); Chloride 104 mmol/L (98-107); Globulin 2.5 g/dL (1.3-4.6); Glomerular Filtration Rate 77.6 mL/min (90-130); Glucose 110 mg/dL (65-115); Osmolality Calculated 287 mOsm/kg (285-295); Potassium 4.1 mmol/L (3.5-5.1); Sodium 137 mmol/L (136-145); Total Bilirubin 0.4 mg/dL (0.15-1.2); Total Protein 5.6 g/dL (6.6-8.7)
[2020-09-20 06:11] LABS: Estmated Average Glucose 117; Hemoglobin A1C 5.7 % (4.0-6.0)
--- NOTE | 2020-09-20 06:19 | PC.NURSE ---
End of shift: PAtient blood sugar checked due to patient pretty sweaty. blood sugar 110. Patient has had a uneventful shift has rested well and remains alert and oriented. Patient has intermittent runs of a-fib with RVR but only lasts for a few seconds. Then his heart rate goes back down to the 90's.
--- NOTE | 2020-09-20 07:00 | USCV_ITS ---
Zach Austin Age: 55 Gender: M : 1965 Exam Date: 09/20/2020 05:24 Ordering Phys: Param Montague MD Technologist: Rach Falcon [place] [facility] [place]: SOB BP: 131 / 83 HR: 86 Rhythm: Other Technical Quality: Adequate MEASUREMENTS (Male / Female) Normal Values 2D ECHO LV Diastolic Diameter PLAX 4.6 cm 4.2 - 5.9 / 3.9 - 5.3 cm LV Systolic Diameter PLAX 4.0 cm LV Chamber Size 4.3 cm IVS Diastolic Thickness 1.5 cm 0.6 - 1.0 / 0.6 - 0.9 cm IVS Systolic Thickness 1.5 cm LVPW Diastolic Thickness 1.4 cm 0.6 - 1.0 / 0.6 - 0.9 cm LVPW Systolic Thickness 1.4 cm RV Chamber Size 4.0 cm LVOT Diameter 2.0 cm LV Ejection Fraction 2D Teich 29.4 % LV Ejection Fraction MOD 2C 49.0 % LV Ejection Fraction 2C AL 48.9 % LA Diameter 3.2 cm LA Width 3.2 cm LA Height 4.8 cm RA Width 4.8 cm RA Height 6.2 cm Aorta at Sinotubular Diameter 3.4 cm M-MODE LV Diastolic Diameter MM 5.1 cm 4.2 - 5.9 / 3.9 - 5.3 cm LV Systolic Diameter MM 4.2 cm LV Ejection Fraction MM Teich 39.4 % IVS Diastolic Thickness MM 1.2 cm 0.6 - 1.0 / 0.6 - 0.9 cm IVS Systolic Thickness MM 1.2 cm LVPW Diastolic Thickness MM 1.3 cm 0.6 - 1.0 / 0.6 - 0.9 cm LVPW Systolic Thickness MM 1.7 cm Aortic Annulus Diameter 3.9 cm LA Ao Ratio MM 0.8 MV E Point Septal Separation 1.8 cm DOPPLER AV Peak Velocity 105.0 cm/s LVOT Peak Velocity 91.0 cm/s AV Area Cont Eq vti 2.4 cm squared AV Area Cont Eq pk 2.8 cm squared MV Area PHT 4.9 cm squared MV E' Velocity 72.0 cm/s Mitral E to MV E' Ratio 16.1 Mitral E to LV E' Lateral Ratio 18.8 Mitral E to LV E' Septal Ratio 14.1 TR Peak Velocity 186.7 cm/s TR Peak Gradient 13.9 mmHg TR Mean Velocity 124.8 cm/s TR Mean Gradient 7.4 mmHg TR Velocity Time Integral 42.8 cm TV Peak E Velocity 57.0 cm/s Right Atrial Pressure 5.0 mmHg Pulmonary Artery Systolic Pressu 18.9 mmHg PV Peak Velocity 40.0 cm/s RV Acceleration Time 0.1 s RV Ejection Time 0.3 s RV AcT/ET 0.6 FINDINGS Left Ventricle Severe diffuse hypokinesis of the left ventricle with an ejection fraction of 29%. Normal LV size. Right Ventricle Normal RV size with a slightly diminished ejection fraction Right Atrium Mildly increased right atrial size. Left Atrium Mildly increased left atrial size. Mitral Valve Mild mitral valve regurgitation. Aortic Valve Trace aortic valve regurgitation. Tricuspid Valve No gross abnormalities noted Pulmonic Valve Trace pulmonary valve regurgitation. Pericardium No pericardial effusion. Aorta Normal aortic annulus size. CONCLUSIONS Severe diffuse hypokinesis of the left ventricle with an ejection fraction of 29%. Normal LV size. Mild biatrial enlargement. Trace aortic valve regurgitation. Trace pulmonary valve regurgitation. There is no pericardial effusion. There are no intracardiac masses. No previous study is available for comparison. Dr Phyllis Grayson MD [facility] (Electronically Signed) Final Date: 20 September 2020 17:02 S
[2020-09-20 08:00] VITALS: BP 136/94; PULSE 98; RESP 20; TEMP 36.4; O2SAT 96
[2020-09-20] MEDS: aspirin 81 mg EC Tablet PO (08:05)
[2020-09-20] MEDS: apixaban 5 mg Tablet PO (08:05)
[2020-09-20] MEDS: pantoprazole DR 40 mg Tablet PO (08:05)
[2020-09-20] MEDS: metoprolol tartrate 25 mg Tablet PO (08:05)
[2020-09-20 11:51] VITALS: BP 116/91; PULSE 99; RESP 17; TEMP 36.5; O2SAT 94
--- NOTE | 2020-09-20 12:20 | PC.NURSE ---
AMA WHILE PROVIDING PATIENT CARE, THE PATIENT ASKED THE NURSE WHAT THAT DOCTOR WAS DOING FOR HIM? I'D SAY NOTHING. THE NURSE EDUCATED THE PATIENT OVER THE ENTIRE PLAN OF CARE THAT DR. FONTANEZ HAD DISCUSSED WITH HIM PREVIOUSLY THIS SHIFT. THE PATIENT THEN STATED THAT HE WAS LEAVING TODAY. NO MATTER WHAT, HE WAS LEAVING TODAY. HE STATED THAT IT DIDN'T FEEL LIKE THERE WAS MUCH BEING DONE FOR HIM, DESPITE THE NURSE EDUCATING HIM ABOUT ALL THE TREATMENT AND OBSERVATION BEING DONE FOR HIM. HE STATED THAT IF HE HEARD COVID TEST ONE MORE TIME THAT HE WAS GOING TO SNAP. HE SAID THAT HOSPITALS ARE TESTING PATIENTS AND HOPING THAT PATIENTS HAVE COVID SO THAT THEY CAN GET MORE AND MORE MONEY, IT'S ALL ABOUT THE MONEY! THIS NURSE REASSURED HIM THAT NEITHER SHE, NOR HIS PHYSICIAN WAS RECEIVING ANY COMPENSATION FOR PATIENT'S WHO ARE COVID POSITIVE AND THAT WE ARE JUST TRYING TO MAKE SURE THAT OUR PATIENT'S RECEIVE THE BEST CARE POSSIBLE FOR THEM, LIKE FOR ALL PATIENTS. HE THEN STATED THAT WE DIDN'T TREAT COVID PATIENT'S LIKE OTHER PATIENTS! THIS NURSE EXPLAINED THAT IT IS A HIGHLY CONTAGIOUS AND POTENTIALLY LIFE THREATENING VIRUS AND THAT SPECIAL PRECAUTIONS MUST BE TAKEN, BUT THAT OVERALL, THE PATIENTS' CARE IS STILL THE SAME. THE PATIENT STATED THAT HE DID NOT CARE, THAT HE WOULD CALL HIS AND AFTER HIS MEAL HE WOULD BE LEAVING. NURSE NOTIFIED DR. FONTANEZ. AMA PAPERS WERE PROVIDED TO THE PATIENT, HE SIGNED THEM AND REQUESTED A COPY OF THE FORM, WHICH WAS PROVIDED. TELEMETRY LEADS REMOVED, IV DISCONTINUED.
--- NOTE | 2020-09-20 13:22 | PC.NURSE ---
[facility] PATIENT ALSO TOLD THIS NURSE THAT HE NEEDED TO LEAVE TO TEND TO HIS BEES AND HIS FARM. HE SAID THAT NO ONE ELSE WOULD TEND TO THEM. PATIENT LEFT [facility] AT 1325.
--- NOTE | 2020-09-20 13:27 | P.DS_ITS ---
Discharge Providers Date of Admission: 09/19/20 14:31 Date of Discharge: September 20, 2020 Attending Provider at Admission: Param Montague MD Attending Provider at Discharge: Param Montague MD Diagnoses at Discharge Discharge Diagnosis (1) Shortness of breath: Status: Acute (2) New onset atrial fibrillation: Status: Acute (3) Atypical pneumonia: Status: Acute (4) CHF (congestive heart failure): Status: Acute (5) NSTEMI (non-ST elevated myocardial infarction): Status: Acute (6) Person under investigation for COVID-19: Status: Acute (7) Chest pain: Status: Acute Reason for Visit Reason for Visit: COUGH/SOB Hospital Course Discharge Summary: This is a 55-year-old male with a past medical history of smoking, alcohol abuse, who presents to [facility] due to complaints of chest palpitations, shortness of breath, chest tightness. Patient was admitted to [facility], cardiac stepdown unit: 1.) New onset atrial fibrillation, received metoprolol in the ER, was in and out of atrial fibrillation, managed in the [facility] on oral metoprolol 25 twice daily, remained in normal sinus rhythm, received Eliquis 5 mg twice daily. On the morning of 09/20/2020 patient removed his IV, got dressed, wanted to leave AGAINST MEDICAL ADVICE. I advised patient that he requires monitoring his hemoglobin, ensure he does not have any bleeding, monitoring of his heart rate is on the monitor he has intermittent episodes of tachycardia which I feel he needs better rate control. Patient was advised that leaving AGAINST MEDICAL ADVICE carries significant risk, including but not limited to significant morbidity and mortality, high risk of stroke, high risk of adverse cardiovascular event, high risk of ICU admission, high risk of sudden . Patient voiced understanding, all questions answered, left AGAINST MEDICAL ADVICE 2.) New onset heart failure, BNP 5080, type unknown, suspect systolic heart failure given his elevated troponins, history of smoking. His echocardiogram is pending. Patient symptomatology did improve with Lasix 40 mg IV daily. But did have crackles on exam on the morning of 09/20/2020, I did diurese him about a liter, felt that he needed more diuresis for the next 24 hours. Monitoring his creatinine, potassium, monitoring his clinical status. In terms of the etiology of the heart failure, 2 possibilities exist 1 of which is obstructive CAD, given his smoking history, and elevated troponins. I advised patient that he would likely require a stress test either during this admission, or as outpatient, as I am worried for the possibility of coronary artery disease. An early intervention could help reverse his heart failure. Other possibilities include COVID-19 and or atypical pneumonia, as patient receives antibiotic treatment, oxygen therapy, and possible treatment to COVID-19 not until his COVID-19 status is known, this could help reverse his heart failure. Patient wants to leave AGAINST MEDICAL ADVICE. Patient was advised that leaving AGAINST MEDICAL ADVICE carries significant risk, including but not limited to significant morbidity and mortality, high risk of heart attack, high risk of adverse cardiovascular event, high risk of ICU admission, high risk of sudden . Patient voiced understanding, all questions answered, left AGAINST MEDICAL ADVICE 3.) chest pain, NSTEMI: Patient had, 6-hour 56.78, delta of 2.78. Concerns for underlying cardiac etiology, no active chest pain reported through hospital stay so far, advised patient that he will eventually require a cardiac stress test either during this his admission or as outpatient. Cardiac echocardiogram is pending. Received aspirin, statin, beta-anusha. Patient left AGAINST MEDICAL ADVICE.Patient was advised that leaving AGAINST MEDICAL ADVICE carries significant risk, including but not limited to significant morbidity and mortality, high risk of heart attack, high risk of adverse cardiovascular event, high risk of ICU admission, high risk of sudden . Patient voiced understanding, all questions answered, left AGAINST MEDICAL ADVICE 4.) Atypical pneumonia: Patient remained afebrile, urine bacterial antigens within normal limits, blood culture so far 12 hours are negative, chest x-ray s howed by lateral perihilar infiltrates, given his symptomatology was concerned for atypical infectious process, started him on broad-spectrum antibiotics Rocephin and azithromycin. Patient left AGAINST MEDICAL ADVICE. Patient was advised that leaving AGAINST MEDICAL ADVICE carries significant risk, including but not limited to significant morbidity and mortality, high risk of worsening infection, high risk of septic shock, high risk of ICU admission, high risk of sudden . 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 Patient wanted to leave AGAINST MEDICAL ADVICE.Patient left AGAINST MEDICAL ADVICE. Patient was advised that leaving AGAINST MEDICAL ADVICE carries significant risk, including but not limited to significant morbidity and mortality, high risk of worsening infection, high risk of septic shock, high risk of ICU admission, high risk of sudden . High risk of spreading the infection to innocent bystanders. Patient voiced understanding, all questions answered, left AGAINST MEDICAL ADVICE. I advised patient on discharge, to hand wash, face mask, social distance 6 feet, and to socially isolate until his test status is known, in addition he should not return to work until his COVID-19 status is known as he carries a significant risk to the population and to the children at the school. 6.) elevated dimer: Patient had an elevated D-dimer, could be related to infectious process, however I wanted to order a CT angiogram of the chest to rule out pulmonary embolism, patient refused testing 7.) Patient did require 2 L oxygen during the night, I suspect he has some degree of sleep apnea, however I do not have enough data to see if he requires oxygen during the day, as he would take off his nasal cannula, and he did not stay here long enough as he left AGAINST MEDICAL ADVICE. Patient left AGAINST MEDICAL ADVICE. Patient was advised that leaving AGAINST MEDICAL ADVICE carries significant risk, including but not limited to significant morbidity and mortality, patient voiced recently, all questions answered. Left AGAINST MEDICAL ADVICE. Patient was advised that if he were to have fevers, chills, shortness of breath, chest pain call 911 or go to the emergency room. Physical Exam Const: COMMON NORMALS: no acute distress and patient oriented x3 HENMT: COMMON NORMALS: normocephalic HEAD & SCALP: normocephalic Neck/C-Spine: GENERAL: Yes JVD (9-10cm) Resp: COMMON NORMALS: normal respiratory effort and No retractions AUSCULTATION: crackles Cardio: COMMON NORMALS: regular rate, regular rhythm, S1 normal heart sound present and S2 normal heart sound present RATE: regular rate RHYTHM: regular rhythm HEART SOUNDS: S1 normal heart sound present and S2 normal heart sound present GI: COMMON NORMALS: Normal to inspection, nondistended, normoactive bowel sounds present, Soft to palpation, non-tender, No hepatosplenomegaly present, no masses and no bruits PALPATION: Yes Soft to palpation and Yes No hepatosplenomegaly present Extremity: COMMON NORMALS: capillary refill normal, no clubbing, cyanosis or edema, no calf tenderness and no pedal edema Neuro: COMMON NORMALS: patient oriented x3 Psych: COMMON NORMALS: mental status grossly normal Discharge Data Data Completed and Pending: Completed Studies During Hospitalization Category Date Time Status XR chest 1V tracie ble [id number] Stat Exams 09/19/20 11:53 Completed Pending at discharge Category Date Time Status Blood Culture Sta t Lab 09/19/20 18:44 Results Coronavirus Lab T est PTC Stat Lab 09/19/20 19:20 Received CV echo complete* [id number] Routine Ultrasound 09/20/20 07:00 Taken Labs from last 24 hours 09/20/20 09/20/20 09/20/20 04:23 04:18 04:18 WBC RBC Hgb Hct MCV MCH MCHC RDW Plt Count MPV Neut % (Auto) Lymph % (Auto) [place] % (Auto) Eos % (Auto) Baso % (Auto) Neut # (Auto) Lymph # (Auto) [place] # (Auto) Eos # (Auto) Baso # (Auto) Nucleated RBC % (a uto) Nucleated RBCs # D-Dimer Sodium Potassium Chloride Carbon Dioxide Anion Gap BUN Creatinine GFR Calculation Glucose POC Glucose 110 Estimat Average Gl ucose 117 Hemoglobin A1c 5.7 Calculated Osmolal ity Calcium Phosphorus Magnesium Ferritin Total Bilirubin AST ALT Alkaline Phosphata se Troponin T 120 Min nondalton Delta Troponin T Troponin T Hi Sens 6Hr Troponin T Hi Sens 6Hr Delta C-Reactive Protein NT-Pro-B Natriuret Pep Total Protein Albumin Globulin Triglycerides 77 Cholesterol 108 LDL Cholesterol, C alc 62 HDL Cholesterol 31 L LDL/HDL Ratio 2.00 Cholesterol/HDL Ra jorge l 3.48 Procalcitonin TSH Free T4 Ethyl Alcohol Nasal/Oral COVID-1 9 PCR Influenza Type A A g Influenza Type B A g SARS-CoV-2 Ag (Rap id) 09/20/20 09/20/20 09/20/20 04:18 04:18 04:18 WBC 10.6 H RBC 3.98 L Hgb 12.4 Hct 38.7 L MCV 97.2 H MCH 31.2 MCHC 32.0 RDW 12.2 Plt Count 315 MPV 10.0 Neut % (Auto) 61.3 Lymph % (Auto) 25.3 [place] % (Auto) 9.7 Eos % (Auto) 2.6 Baso % (Auto) 0.8 Neut # (Auto) 6.48 Lymph # (Auto) 2.7 [place] # (Auto) 1.0 H Eos # (Auto) 0.3 Baso # (Auto) 0.1 Nucleated RBC % (a uto) 0 Nucleated RBCs # 0.0 D-Dimer Sodium 137 Potassium 4.1 Chloride 104 Carbon Dioxide 23 Anion Gap 14.1 BUN 18 Creatinine 1.0 GFR Calculation 77.6 L Glucose 110 POC Glucose Estimat Average Gl ucose Hemoglobin A1c Calculated Osmolal ity 287 Calcium 8.7 Phosphorus 4.0 Magnesium 2.2 Ferritin Total Bilirubin 0.4 AST 22 ALT 34 Alkaline Phosphata se 75 Troponin T 120 Min nondalton Delta Troponin T Troponin T Hi Sens 6Hr Troponin T Hi Sens 6Hr Delta C-Reactive Protein NT-Pro-B Natriuret Pep Total Protein 5.6 L Albumin 3.1 L Globulin 2.5 Triglycerides Cholesterol LDL Cholesterol, C alc HDL Cholesterol LDL/HDL Ratio Cholesterol/HDL Ra jorge l Procalcitonin TSH Free T4 Ethyl Alcohol Nasal/Oral COVID-1 9 PCR Influenza Type A A g Influenza Type B A g SARS-CoV-2 Ag (Rap id) 09/19/20 09/19/20 09/19/20 19:20 18:40 16:30 WBC RBC Hgb Hct MCV MCH MCHC RDW Plt Count MPV Neut % (Auto) Lymph % (Auto) [place] % (Auto) Eos % (Auto) Baso % (Auto) Neut # (Auto) Lymph # (Auto) [place] # (Auto) Eos # (Auto) Baso # (Auto) Nucleated RBC % (a uto) Nucleated RBCs # D-Dimer Sodium Potassium Chloride Carbon Dioxide Anion Gap BUN Creatinine GFR Calculation Glucose POC Glucose Estimat Average Gl ucose Hemoglobin A1c Calculated Osmolal ity Calcium Phosphorus Magnesium Ferritin Total Bilirubin AST ALT Alkaline Phosphata se Troponin T 120 Min nondalton Delta Troponin T Troponin T Hi Sens 6Hr 56.78 H Troponin T Hi Sens 6Hr Delta 2.78 C-Reactive Protein NT-Pro-B Natriuret Pep Total Protein Albumin Globulin Triglycerides Cholesterol LDL Cholesterol, C alc HDL Cholesterol LDL/HDL Ratio Cholesterol/HDL Ra jorge l Procalcitonin TSH Free T4 Ethyl Alcohol Nasal/Oral COVID-1 9 PCR Pending Influenza Type A A g Negative Influenza Type B A g Negative SARS-CoV-2 Ag (Rap id) 09/19/20 09/19/20 09/19/20 14:45 13:45 12:51 WBC RBC Hgb Hct MCV MCH MCHC RDW Plt Count MPV Neut % (Auto) Lymph % (Auto) [place] % (Auto) Eos % (Auto) Baso % (Auto) Neut # (Auto) Lymph # (Auto) [place] # (Auto) Eos # (Auto) Baso # (Auto) Nucleated RBC % (a uto) Nucleated RBCs # D-Dimer Sodium Potassium Chloride Carbon Dioxide Anion Gap BUN Creatinine GFR Calculation Glucose POC Glucose Estimat Average Gl ucose Hemoglobin A1c Calculated Osmolal ity Calcium Phosphorus Magnesium Ferritin 273 Total Bilirubin AST ALT Alkaline Phosphata se Troponin T 120 Min nondalton 54.00 H Delta Troponin T 0 Troponin T Hi Sens 6Hr Troponin T Hi Sens 6Hr Delta C-Reactive Protein 54.1 H NT-Pro-B Natriuret Pep Total Protein Albumin Globulin Triglycerides Cholesterol LDL Cholesterol, C alc HDL Cholesterol LDL/HDL Ratio Cholesterol/HDL Ra jorge l Procalcitonin 0.12 TSH Free T4 Ethyl Alcohol < 10 Nasal/Oral COVID-1 9 PCR Influenza Type A A g Influenza Type B A g SARS-CoV-2 Ag (Rap id) Negative 09/19/20 09/19/20 09/19/20 12:51 12:51 12:51 WBC RBC Hgb Hct MCV MCH MCHC RDW Plt Count MPV Neut % (Auto) Lymph % (Auto) [place] % (Auto) Eos % (Auto) Baso % (Auto) Neut # (Auto) Lymph # (Auto) [place] # (Auto) Eos # (Auto) Baso # (Auto) Nucleated RBC % (a uto) Nucleated RBCs # D-Dimer 1.66 H Sodium 136 Potassium 4.5 Chloride 101 Carbon Dioxide 23 Anion Gap 16.5 BUN 17 Creatinine 0.8 GFR Calculation 100.4 Glucose 102 POC Glucose Estimat Average Gl ucose Hemoglobin A1c Calculated Osmolal ity 284 L Calcium 8.5 Phosphorus Magnesium Ferritin Total Bilirubin 0.6 AST 29 ALT 35 Alkaline Phosphata se 78 Troponin T 120 Min nondalton Delta Troponin T Troponin T Hi Sens 6Hr Troponin T Hi Sens 6Hr Delta C-Reactive Protein NT-Pro-B Natriuret Pep 5080 H Total Protein 5.9 L Albumin 3.6 Globulin 2.3 Triglycerides Cholesterol LDL Cholesterol, C alc HDL Cholesterol LDL/HDL Ratio Cholesterol/HDL Ra jorge l Procalcitonin TSH 2.45 Free T4 1.31 Ethyl Alcohol Nasal/Oral COVID-1 9 PCR Influenza Type A A g Influenza Type B A g SARS-CoV-2 Ag (Rap id) Vitals: Last Vital Signs Temp 97.7 F 09/20/20 11:51 Pulse 99 09/20/20 11:51 Resp 17 09/20/20 11:51 BP 116/91 09/20/20 11:51 Pulse Ox 94 09/20/20 11:51 Discharge Plan Discharge Patient Disposition: Left Against Medical Advice Condition: Stable Prescriptions: No Action Multiple Vitamins Tablet 1 tab PO DAILY RF: 0 Discharge Date/Time: 09/20/20 13:25 Discharge Attestations Time Spent in Discharge Care*: less than 30 min Quality Metrics Clinical Quality Measures During this hospital stay, did patient experience: None Coding Level of Care Code Acute Multi Spindle 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
[2020-09-21 09:00] LABS: Coronavirus Lab Test PTC Negative
== END 2020-09-20 13:25 | disposition left against medical advice (07) | DRG 280 ==
LOC: ER 12:51 → CSU 15:18
PROVIDERS: Nurse Practitioner Family; Admitting Provider Family Medicine; Emergency Provider Family Medicine; Visit Provider Family Medicine
DX: I48.91 Unspecified atrial fibrillation (principal); I50.21 Acute systolic (congestive) heart failure; I21.A1 Myocardial infarction type 2; J18.9 Pneumonia, unspecified organism; Z87.891 Personal history of nicotine dependence; F10.21 Alcohol dependence, in remission; Z96.653 Presence of artificial knee joint, bilateral; Z20.828 Contact with and (suspected) exposure to other viral communicable diseases; Z53.29 Procedure and treatment not carried out because of patient's decision for other reasons; G47.30 Sleep apnea, unspecified
CPT/HCPCS: 12345; 36415; 36416; 71045; 80053; 80061; 80307; 82728; 82962; 83036; 83735; 83880; 84100; 84145; 84439; 84443; 84484; 85025; 85378; 86140; 86403; 87040; 87426; 87635; 87804; 93005; 93306; 94664; 96375; 99283; J0456; J0696; J1940; J3490; J7050

== ENCOUNTER 2020-10-02 11:27 | Inpatient (IN) | payer OTHER, SELFPAY ==
[2020-10-02] VITALS (12 sets, daily range): BP systolic 104–126; BP diastolic 62–93; PULSE 83–130; RESP 18–31; TEMP 36.4–36.7; O2SAT 94–98; BMI 29.4
--- NOTE | 2020-10-02 11:33 | XR_ITS ---
WS: [id number] Portable AP upright chest, 10/02/2020 Clinical Data: cp Comparison: Portable chest, 09/19/2020. Findings: Bilateral pulmonary opacities remain unchanged. These opacities do not reach the lung perip merle and are central in location. Again this could represent an unusual pulmonary edema or unusual pn eum[place]. The heart is enlarged. There are small bilateral effusions. No nodules or masses are seen. XR/XR chest 1V portable [id number] Impression: 1. No change in cardiomegaly and perihilar infiltrates. 2. No change in small bilateral effusions.
--- NOTE | 2020-10-02 11:34 | ECG_ITS ---
[facility] Test Date: 2020-10-02 Pat Name: Zach Austin Department: Room: Gender: Male Triage Rn: : 1965 Requested By: Lorena Granger Order Number: [id number] Anna Marie MD: Phyllis Grayson M.D. Measurements Intervals [place] Rate: 106 P: [place]: -1 QRS: 79 QRSD: 100 T: 41 QT: 360 QTc: 479 Interpretive Statements ATRIAL FIBRILLATION WITH RAPID VENTRICULAR RESPONSE ABNORMAL RHYTHM ECG Compared to ECG 09/19/2020 17:50:34 T-wave abnormality no longer present Possible ischemia no longer present Electronically Signed On 10-02-2020 20:18:04 ROLLER LEVELER by Phyllis Grayson M.D. [id number] f
--- NOTE | 2020-10-02 11:51 | CT_ITS ---
WS: [id number] CTA OF THE CHEST WITH PULMONARY EMBOLISM PROTOCOL TECHNIQUE: High-resolution contrast enhanced CTA of the chest with coronal and sagittal reformatted i mages with pulmonary embolism protocol. MIP images are also reviewed. CLINICAL INFORMATION: sob COMPARISON: None. DLP: 582.[address] scans at [facility] use at least one of these dose optimization techniques: automat ed exposure control; mA and/or kV adjustment per patient size (includes targeted exams where dose is matched to clinical indication); or iterative reconstruction. FINDINGS: Proximal main pulmonary arteries are normal. Segmental and subsegmental pulmonary arteries appear pat ent. No evidence for pulmonary embolus. Diffuse bilateral perihilar airspace infiltrates extending into the upper lobes. Findings consistent with pneumonia. Small right greater than left pleural effusions with bibasilar atelectasis. Numerous enlarged anterior mediastinal, AP window, and peribronchial lymph nodes. Enlarged hilar and subcarina l lymph nodes. These are nonspecific but likely reactive Normal caliber thoracic aorta. Cardiomegaly. CT/CT angio chest PE protcl [id number] IMPRESSION: 1. No evidence of pulmonary embolus. 2. Extensive bilateral perihilar and upper lobe airspace infiltrates. Findings consistent with pneumonia 3. Multiple enlarged mediastinal and hilar lymph nodes nonspecific but likely reactive. 4. Small right greater than left pleural effusions with bibasilar atelectasis Notified Lorena Granger MD at 10/02/2020 2:32 PM.
--- NOTE | 2020-10-02 12:03 | ED_ITS ---
HPI - SOB/Dyspnea General: Chief Complaint: Shortness of Breath/Dyspnea Stated Complaint: SOB Time Seen by Provider: 10/02/20 11:49 Source: patient Mode of arrival: ambulatory Limitations: no limitations History of Present Illness: HPI Narrative: 55-year-old male who states he has had a cough was admitted here 1 month ago for A. fib. States that over the last 2 to 3 days he had some hemoptysis and increasing shortness of breath. Patient has had some slight pain. He has had low-grade fevers. He tested negative for Covid 2 weeks ago. [facility]. Associated symptoms: Deny abdominal pain, chest pain, fever(s), nausea or vomiting Review of Systems Const: Denies: fever(s), chills, body aches or change in appetite Eyes: Denies: blurry vision or eye discomfort ENMT: Denies: throat pain or dental pain Card: Denies: chest pain Resp: Reports: dyspnea and productive cough GI: Denies: abdominal pain, nausea, vomiting or diarrhea : Denies: dysuria Musc: Denies: neck pain or back pain Skin/Breast: Denies: rash Neuro: Denies: headache(s) Psych: Denies: depression Luc/Lymph: Denies: easy bruising All/Imm: Denies: urticaria PFSH ED PFSH: Medical History No pertinent past medical history Surgical History Status post bilateral knee replacements Family History Grandmother Hypertension Social History Smoking and tobacco status: former smoker Quit status (tobacco): has quit using tobacco Alcohol intake: former Year of sobriety/quit date alcohol: 1 month ago Former alcohol use details: Half a pint of vodka, beer use daily Physical Exam Const: COMMON NORMALS: no acute distress, patient oriented x3 and healthy appearing HENMT: COMMON NORMALS: normocephalic and atraumatic HEAD & SCALP: normocephalic and atraumatic Eye: COMMON NORMALS: Equal, round and reactive pupils present and EOMs intact bilaterally PUPIL: Yes Equal, round and reactive pupils present Neck/C-Spine: COMMON NORMALS: full ROM and supple Chest: COMMONS NORMALS: normal inspection of the chest and normal palpation of entire chest wall Resp: COMMON NORMALS: normal respiratory effort, No retractions and No use of accessory muscles AUSCULTATION: rales Cardio: COMMON NORMALS: No murmurs present (Cardio) RATE: tachycardic RHYTHM: abnormal rhythm irregularly irregular GI: COMMON NORMALS: Normal to inspection, nondistended, normoactive bowel sounds present, Soft to palpation, non-tender and no masses PALPATION: Yes Soft to palpation Extremity: COMMON NORMALS: normal to inspection and full ROM Neuro: COMMON NORMALS: patient oriented x3, moves all extremities and no focal motor deficits Psych: COMMON NORMALS: mental status grossly normal, Normal thought process present and cooperative THOUGHT PROCESS: Normal thought process present Skin: COMMON NORMALS: no rashes or lesions noted and no wounds GENERAL SKIN EXAM: no rashes or lesions noted Course Vital Signs: Vital signs: Vital Signs Temperature 98.1 F 10/02/20 11:32 Pulse Rate 130 H 10/02/20 14:00 Respiratory Rate 31 H 10/02/20 13:53 Blood Pressure 113/88 10/02/20 13:53 Pulse Oximetry 97 10/02/20 13:53 MDM - SOB/Dyspnea MDM Narrative: Medical decision making narrative: Zach presents for shortness of breath. He was found to have a worsening pneumonia. I gave patient IV antibiotics here. Patient is also in A. fib which is improved with a Cardizem bolus and his heart rate is now 89. I spoke to hospitalist will admit. Patient has been stable while in the ER. Lab Data: Labs: Lab Results 10/02/20 10/02/20 10/02/20 Range/Units 12:35 12:35 12:35 WBC 11.8 H (4.0-10.0) 10^3/ uL RBC 4.65 (4.1-5.3) 10^6/u L Hgb 14.3 (11.7-16.6) g/dL Hct 44.0 (42.0-52.0) % MCV 94.6 H (80-94) fL MCH 30.8 (28.0-34.0) pg MCHC 32.5 (30.0-36.0) g/dL RDW 12.6 (12.1-15.1) % Plt Count 356 (130-400) 10^3/c mm MPV 10.5 H (7.4-10.4) fL Neut % (Auto) 70.8 % Lymph % (Auto) 18.8 % [place] % (Auto) 8.4 % Eos % (Auto) 1.1 % Baso % (Auto) 0.6 % Neut # (Auto) 8.37 H (1.8-7.7) 10^3/u L Lymph # (Auto) 2.2 (0.8-4.8) 10^3/u L [place] # (Auto) 1.0 H (0.2-0.9) 10^3/u L Eos # (Auto) 0.1 (0.0-0.8) 10^3/u L Baso # (Auto) 0.1 (0.0-0.1) 10^3/u L Nucleated RBC % (a uto) 0 % Nucleated RBCs # 0.0 /100WBC Sodium 136 (136-145) mmol/L Potassium 4.8 (3.5-5.1) mmol/L Chloride 103 (98-107) mmol/L Carbon Dioxide 21 L (22-29) mmol/L Anion Gap 16.8 (5-19) BUN 20 (6-20) mg/dL Creatinine 0.8 (0.7-1.2) mg/dL GFR Calculation 100.4 (90-130) mL/min Glucose 110 (65-115) mg/dL Calculated Osmolal ity 285 (285-295) mOsm/k g Calcium 8.9 (8.5-10.5) mg/dL Total Bilirubin 0.5 (0.15-1.2) mg/dL AST 40 (0-40) U/L ALT 46 H (0-41) U/L Alkaline Phosphata se 94 (40-130) IU/L Troponin T Baselin e Cancelled Troponin T 120 Min tribal (0-15) ng/L Delta Troponin T NT-Pro-B Natriuret Pep 8488 H (0-125) pg/mL Total Protein 5.8 L (6.6-8.7) g/dL Albumin 3.4 L (3.5-5.2) g/dL Globulin 2.4 (1.3-4.6) g/dL SARS-CoV-2 Ag (Rap id) (Negative) 10/02/20 10/02/20 Range/Units 12:35 13:05 WBC (4.0-10.0) 10^3/ uL RBC (4.1-5.3) 10^6/u L Hgb (11.7-16.6) g/dL Hct (42.0-52.0) % MCV (80-94) fL MCH (28.0-34.0) pg MCHC (30.0-36.0) g/dL RDW (12.1-15.1) % Plt Count (130-400) 10^3/c mm MPV (7.4-10.4) fL Neut % (Auto) % Lymph % (Auto) % [place] % (Auto) % Eos % (Auto) % Baso % (Auto) % Neut # (Auto) (1.8-7.7) 10^3/u L Lymph # (Auto) (0.8-4.8) 10^3/u L [place] # (Auto) (0.2-0.9) 10^3/u L Eos # (Auto) (0.0-0.8) 10^3/u L Baso # (Auto) (0.0-0.1) 10^3/u L Nucleated RBC % (a uto) % Nucleated RBCs # /100WBC Sodium (136-145) mmol/L Potassium (3.5-5.1) mmol/L Chloride (98-107) mmol/L Carbon Dioxide (22-29) mmol/L Anion Gap (5-19) BUN (6-20) mg/dL Creatinine (0.7-1.2) mg/dL GFR Calculation (90-130) mL/min Glucose (65-115) mg/dL Calculated Osmolal ity (285-295) mOsm/k g Calcium (8.5-10.5) mg/dL Total Bilirubin (0.15-1.2) mg/dL AST (0-40) U/L ALT (0-41) U/L Alkaline Phosphata se (40-130) IU/L Troponin T Baselin e Troponin T 120 Min tribal 52.03 H (0-15) ng/L Delta Troponin T Not Reportable NT-Pro-B Natriuret Pep (0-125) pg/mL Total Protein (6.6-8.7) g/dL Albumin (3.5-5.2) g/dL Globulin (1.3-4.6) g/dL SARS-CoV-2 Ag (Rap id) Negative (Negative) Imaging Data^: CXR: Attestation: I personally reviewed and interpreted this imaging study as follows: Radiologist's impression: [address] [place] [address] XRay Report Signed Patient: Zach Austin Unit #: [id number] : 1965 Age/Sex: 55 / M ADM Date: 10/02/20 Loc: ER Room/Bed: Attending Dr: Ordering Provider/Ordering MD: Lorena Granger MD Date of Service: 10/02/20 Procedure(s): XR chest 1V portable [id number] Accession Number(s): [id number] Report Number: [id number] WS: [id number] Portable AP upright chest, 10/02/2020 Clinical Data: cp Comparison: Portable chest, 09/19/2020. Findings: Bilateral pulmonary opacities remain unchanged. These opacities do not reach the lung periphery and are central in location. Again this could represent an unusual pulmonary edema or unusual pneumonia. The heart is enlarged. There are small bilateral effusions. No nodules or masses are seen. XR/XR chest 1V portable [id number] Impression: 1. No change in cardiomegaly and perihilar infiltrates. 2. No change in small bilateral effusions. CT Chest: Radiologist's impression: [address] [address] [address] Scan Report Signed Patient: Zach Austin Unit #: [id number] : 1965 Age/Sex: 55 / M ADM Date: 10/02/20 Loc: ER Room/Bed: Attending Dr: Ordering Provider/Ordering MD: Lorena Granger MD Date of Service: 10/02/20 Procedure(s): CT angio chest PE protcl [id number] Accession Number(s): [id number] Report Number: [id number] WS: [id number] CTA OF THE CHEST WITH PULMONARY EMBOLISM PROTOCOL TECHNIQUE: High-resolution contrast enhanced CTA of the chest with coronal and sagittal reformatted images with pulmonary embolism protocol. MIP images are also reviewed. CLINICAL INFORMATION: sob COMPARISON: None. DLP: 582.[address] scans at [facility] use at least one of these dose optimization techniques: automated exposure control; mA and/or kV adjustment per patient size (includes targeted exams where dose is matched to clinical indication); or iterative reconstruction. FINDINGS: Proximal main pulmonary arteries are normal. Segmental and subsegmental pulmonary arteries appear patent. No evidence for pulmonary embolus. Diffuse bilateral perihilar airspace infiltrates extending into the upper lobes. Findings consistent with pneumonia. Small right greater than left pleural effusions with bibasilar atelectasis. Numerous enlarged anterior mediastinal, AP window, and peribronc hial lymph nodes. Enlarged hilar and subcarinal lymph nodes. These are nonspecific but likely reactive Normal caliber thoracic aorta. Cardiomegaly. CT/CT angio chest PE protcl [id number] IMPRESSION: 1. No evidence of pulmonary embolus. 2. Extensive bilateral perihilar and upper lobe airspace infiltrates. Findings consistent with pneumonia 3. Multiple enlarged mediastinal and hilar lymph nodes nonspecific but likely reactive. 4. Small right greater than left pleural effusions with bibasilar atelectasis Notified Lorena Granger MD at 10/02/2020 2:32 PM. EKG Data^: EKG 1: Attestation: I personally reviewed and interpreted this EKG as follows: EKG Interpretation Date: 10/02/20 EKG interpretation time: 11:39 Interpretation: A. fib with RVR heart rate [address] or T wave abnormalities QRS 100 QTC 422 EKG 2: Attestation: I personally reviewed and interpreted this EKG as follows: EKG Interpretation Date: 10/02/20 EKG interpretation time: 13:51 Interpretation: afib hr [address] or t wve abnormalities qrs 111 qtc 418 Discharge Plan Discharge Patient Disposition: Admitted As Inpatient Clinical Impression: Community acquired pneumonia Qualifiers: Laterality: unspecified laterality Qualified Code(s): J18.9 - Pneumonia, unspecified organism Atrial fibrillation Qualifiers: Atrial fibrillation type: unspecified chronic Qualified Code(s): I48.20 - Chronic atrial fibrillation, unspecified Condition: Stable Coding Level of Care Code ED Tribunal Member for [facility] Fwd Exam Comprehensive
[2020-10-02] MEDS: azithromycin 500 MG in sodium chloride 0.9% 250 ML 250 MG IV (12:45)
[2020-10-02] MEDS: cefTRIAXone 1,000 MG in sodium chloride 0.9% (plus) 50 ML 100 MG IV (12:45)
[2020-10-02 12:52] LABS: Basophils # 0.1 10^3/uL (0.0-0.1); Basophils % 0.6 %; Eosinophils # 0.1 10^3/uL (0.0-0.8); Eosinophils % 1.1 %; Hemoglobin 14.3 g/dL (11.7-16.6); Lymphocytes # 2.2 10^3/uL (0.8-4.8); Lymphocytes % 18.8 %; Mean Corpuscular HGB Conc 32.5 g/dL (30.0-36.0); Mean Corpuscular Hemoglobin 30.8 pg (28.0-34.0); Mean Corpuscular Volume 94.6 fL (80-94); Mean Platelet Volume 10.5 fL (7.4-10.4); Monocytes % 8.4 %; Neutrophils # 8.37 10^3/uL (1.8-7.7); Neutrophils % 70.8 %; Nucleated Red Blood Cells % 0 %; Platelet Count 356 10^3/cmm (130-400); Red Blood Count 4.65 10^6/uL (4.1-5.3); Red Cell Distribution Width 12.6 % (12.1-15.1); White Blood Count 11.8 10^3/uL (4.0-10.0)
[2020-10-02 13:21] LABS: SARS Covid-2 Antigen Negative (Negative)
[2020-10-02 13:26] LABS: Alanine Aminotransferase 46 U/L (0-41); Albumin Level 3.4 g/dL (3.5-5.2); Alkaline Phosphatase 94 IU/L (40-130); Aspartate Amino Transferase 40 U/L (0-40); Blood Urea Nitrogen 20 mg/dL (6-20); Calcium 8.9 mg/dL (8.5-10.5); Carbon Dioxide 21 mmol/L (22-29); Chloride 103 mmol/L (98-107); Globulin 2.4 g/dL (1.3-4.6); Glomerular Filtration Rate 100.4 mL/min (90-130); Glucose 110 mg/dL (65-115); NT Pro B Type Natriuretic Pept 8488 pg/mL (0-125); Osmolality Calculated 285 mOsm/kg (285-295); Sodium 136 mmol/L (136-145); Total Bilirubin 0.5 mg/dL (0.15-1.2); Total Protein 5.8 g/dL (6.6-8.7)
--- NOTE | 2020-10-02 13:34 | ECG_ITS ---
[facility] Test Date: 2020-10-02 Pat Name: Zach Austin Department: Room: Gender: Male Pharmacist Intern: : 1965 Requested By: Lorena Granger Order Number: [id number] Anna Marie MD: Phyllis Grayson M.D. Measurements Intervals [place] Rate: 126 P: [place]: -1 QRS: 115 QRSD: 111 T: 16 QT: 343 QTc: 498 Interpretive Statements ATRIAL FIBRILLATION WITH RAPID VENTRICULAR RESPONSE INCOMPLETE RIGHT BUNDLE BRANCH BLOCK [90+ ms QRS DURATION, TERMINAL R IN V1/V2, 40+ ms S IN I/aVL/V4/V5/V6] POSSIBLE RIGHT VENTRICULAR HYPERTROPHY [SOME/ALL OF: PROMINENT R IN V1, LATE TRANSITION, RAD, TORRIE, SSS] POSSIBLE ANTERIOR MYOCARDIAL INFARCTION [30 ms Q WAVE IN V3/V4, OR R < 0.2 mV IN V4], PROBABLY OLD Compared to ECG 10/02/2020 11:39:56 Incomplete right bundle-branch block now present Atrial abnormality now present Myocardial infarct finding now present Electronically Signed On 10-02-2020 20:24:10 PURCHASING ASSOCIATE by Phyllis Grayson M.D. [id number] allen
[2020-10-02 13:36] LABS: Anion Gap 16.8 (5-19); Potassium 4.8 mmol/L (3.5-5.1)
[2020-10-02 13:46] LABS: Troponin 5 2HR 52.03 ng/L (0-15)
[2020-10-02] MEDS: iohexol 350 mg/mL 100 mL Btl IV (14:01)
--- NOTE | 2020-10-02 17:06 | P.HP_ITS ---
Providers/Chief Complaint Admitting Physician: Bronson Islas Chief Complaint: SOB History of Present Illness 55-year-old male with recent diagnosis of new onset atrial fibrillation and suspected congestive heart failure who was recently admitted to the hospital on September 20, 2020 with similar complaints now presenting to the hospital with again respiratory failure. In review of records patient left against medical advice. Continued to have ongoing respiratory distress, orthopnea and increased bilateral lower extremity edema. Presented to his primary care physician at the [facility] today during which time he was given Lasix 40 mg all x1. Denies any recent fever or chills however does have a nonproductive cough. During prior admission patient did have echocardiogram performed which has shown ejection fraction of 29%, biatrial enlargement. No ischemic workup was performed. Upon arrival to emergency room today his initial laboratory workup showed WBC of 11.8, hemoglobin of 14.3, hematocrit 44.0 and a platelet count of 356. sodium 136, potassium 4.8, chloride 103, bicarb 21, BUN 20 and creatinine 0.8. AST of 40, ALT 46, alkaline phosphatase of 94. high sensitivity troponin T initially was 52.03 with a repeat a 54.15. ProBNP was elevated a 8488. Rapid covered antigen was negative. Patient was noted to be in atrial fibrillation with rapid ventricular response. Cardizem 20 mg IV x1 was given. Subsequently rate improv ed. Additionally was given ceftriaxone 1 g IV x1, azithromycin 500 mg IV x1. Of note patient did deny any chest pain. Review of Systems General: Reports: 10 or more systems reviewed and unremarkable except in HPI and below Medications/Allergies Home Medications Medication Instructions Recorded Confirmed Last Taken Type multivitamin [Multiple Vitamins] 1 tab PO DAILY 09/19/20 10/02/20 10/02/20 History Vitamin D3 1 tab PO DAILY 10/02/20 10/02/20 10/02/20 History elderberry fruit-honey See Rx Instructions .ROUTE .COMPLEX 10/02/20 10/02/20 10/02/20 History turmeric 400 mg PO DAILY 10/02/20 10/02/20 10/02/20 History Allergies Allergy/AdvReac Type Severity Reaction Status Date / Time No Known Allergies Allergy Verified 09/19/20 16:11 PFSH Acute PFSH: Medical History No pertinent past medical history Surgical History Status post bilateral knee replacements Family History Grandmother Hypertension Social History Smoking and tobacco status: former smoker Quit status (tobacco): has quit using tobacco Alcohol intake: former Year of sobriety/quit date alcohol: 1 month ago Former alcohol use details: Half a pint of vodka, beer use daily Vitals/I&O/Wt Last Vital Signs Temp 98.1 F 10/02/20 11:32 Pulse 85 10/02/20 16:00 Resp 28 H 10/02/20 16:00 BP 114/83 10/02/20 16:00 Pulse Ox 98 10/02/20 16:00 10/02/20 10/02/20 10/02/20 06:59 14:59 22:59 Intake Total 300 / 300 Balance 300 / 300 Weight last 48 hrs Weight 92.986 kg Physical Exam Const: COMMON NORMALS: no acute distress HENMT: COMMON NORMALS: normocephalic and atraumatic Chest: COMMONS NORMALS: normal inspection of the chest Cardio: COMMON NORMALS: no JVD GI: COMMON NORMALS: Normal to inspection, nondistended, normoactive bowel sounds present, Soft to palpation and non-tender Data : 10/02/20 12:35 10/02/20 12:35 Micro: Microbiology 10/02/20 12:35 Blood Culture - Preliminary Blood SPECIMEN COLLECTED 10/02/20 12:35 Blood Culture - Preliminary Blood SPECIMEN COLLECTED A&P Assessment and plan (1) Atrial fibrillation: Status: Acute Qualifiers: Atrial fibrillation type: unspecified chronic Qualified Code(s): I48.20 - Chronic atrial fibrillation, unspecified (2) CHF (congestive heart failure): Status: Acute (3) Shortness of breath: Status: Acute Acute systolic heart failure exacerbation Acute respiratory distress with hypoxia Atrial fibrillation with rapid ventricular response DVT prophylaxis Plan Will continue patient on Lasix 40 mg IV b.i.d. Replace potassium as needed Recent echocardiogram -EF 29 % Monitor daily weight Strict I&O Will need ischemic work up Start on full dose lovenox Will consult cardiology in am Emperically start on abx Low suspecion of pneumonia Attestations Medical Necessity Statement*: CHF exacerbation, hypoxic respiratory failure. will need over 2 midnight stay for eval and treatment Time Spent in Patient Care: Greater than 35 minutes Coding Level of Care Code Acute Commercial Parts Professional for [facility] Fwd Diagnoses Atrial fibrillation I48.20 Atrial fibrillation type: unspecified chronic CHF (congestive heart failure) I50.9 Shortness of breath R06.02
[2020-10-02] MEDS: FUROsemide 10 mg/mL SDV 2mL 20 MG IVP (18:10)
[2020-10-02] MEDS: enoxaparin 40 mg/0.4 mL Syringe SUBCUT (18:10)
[2020-10-02 19:06] LABS: Troponin 5 6HR 54.15 ng/L (0-15)
[2020-10-03] VITALS (9 sets, daily range): BP systolic 104–167; BP diastolic 67–90; PULSE 61–108; RESP 17–18; TEMP 36.4–37.1; O2SAT 91–98
[2020-10-03] MEDS: enoxaparin 100 mg/mL Syringe 90 MG SUBCUT ×2 (00:47→23:07)
[2020-10-03 05:11] LABS: Basophils % 0.4 %; Eosinophils # 0.3 10^3/uL (0.0-0.8); Eosinophils % 2.9 %; Hematocrit 39.3 % (42.0-52.0); Hemoglobin 12.6 g/dL (11.7-16.6); Lymphocytes # 2.4 10^3/uL (0.8-4.8); Lymphocytes % 24.5 %; Mean Corpuscular HGB Conc 32.1 g/dL (30.0-36.0); Mean Corpuscular Hemoglobin 30.4 pg (28.0-34.0); Mean Corpuscular Volume 94.9 fL (80-94); Mean Platelet Volume 9.8 fL (7.4-10.4); Monocytes # 0.9 10^3/uL (0.2-0.9); Monocytes % 8.8 %; Neutrophils # 6.26 10^3/uL (1.8-7.7); Neutrophils % 63.1 %; Nucleated Red Blood Cells % 0 %; Platelet Count 375 10^3/cmm (130-400); Red Blood Count 4.14 10^6/uL (4.1-5.3); Red Cell Distribution Width 12.6 % (12.1-15.1); White Blood Count 9.9 10^3/uL (4.0-10.0)
[2020-10-03 05:49] LABS: Blood Urea Nitrogen 18 mg/dL (6-20); Calcium 8.7 mg/dL (8.5-10.5); Carbon Dioxide 23 mmol/L (22-29); Chloride 102 mmol/L (98-107); Glomerular Filtration Rate 87.6 mL/min (90-130); Glucose 120 mg/dL (65-115); Magnesium 1.9 mg/dL (1.7-2.3); Osmolality Calculated 285 mOsm/kg (285-295); Procalcitonin 0.08 ng/mL (0-0.5); Sodium 136 mmol/L (136-145); Thyroid Stimulating Hormone 2.06 uIU/mL (0.27-4.20)
[2020-10-03 06:00] LABS: Chol HDL Ratio 3.56 mg/dL (1.0-5.00); Cholesterol 114 mg/dL (0-200); HDL Cholesterol 32 mg/dL (60-100); LDL Cholesterol Calculated 68 mg/dL (50-129); LDL HDL Ratio 2.13 RATIO (0.00-3.22); Triglycerides 72 mg/dL (0-150)
[2020-10-03] MEDS: aspirin 325 mg Tablet PO (08:11)
[2020-10-03] MEDS: levofloxacin-dextrose 5 % 750 MG/150 ML PREMIX 100 MG IV (08:11)
[2020-10-03] MEDS: FUROsemide 10 mg/mL SDV 2mL 40 MG IVP ×2 (10:26→21:44)
--- NOTE | 2020-10-03 10:33 | P.CONIM_ITS ---
Providers/Reason For Consult Consulting Physican/Specialty*: Seun Rinaldi MD/ Cardiology Reason for Consult*: New onset A. fib/HFrEF Requesting Physcian: Bronson Islas MD Attending Physician: Bronson Islas History of Present Illness History of Present Illness 55-year-old male with recent diagnosis of atrial fibrillation, heart failure with reduced ejection fraction and hypertension presented to the hospital with shortness of breath and palpitations. He was admitted on September 20 with similar complaints. On his last hospital admission he left AGAINST MEDICAL ADVICE. Since being out of the hospital he continued having orthopnea and increased bilateral lower extremity edema. He presented to his primary care physician at [facility] where he was given Lasix. On his last hospital admission echocardiogram was done that showed an LVEF of 29% with biatrial enlargement. According to patient his shortness of breath has been present only for the last 2 weeks. He also feels chest pressure at the same time. Laying down flat is difficult because of breathing difficulty. He also developed bilateral lower extremity edema. He has also been noticing nonproductive cough. On presentation to hospital his NT proBNP was more than 8000. He was empirically started on antibiotics for potential pneumonia. Review of Systems Narrative: CONSTITUTIONAL: No fever chills weight loss or gain or night sweats. [] HEENT: Normocephalic, atraumatic.[] RESPIRATORY: Has nonproductive cough, breathing difficulty. CARDIOVASCULAR: No shortness of breath, chest pain, PND, orthopnea, lower extremity edema, presyncope or syncope. [] GI: no nausea vomiting diarrhea. [] RECORDING STUDIO SET UP WORKER: No numbness, tingling, weakness or loss of function in any part of the body. [] MUSCULOSKELETAL: No knee or joint pain or rashes. [] Meds/Allergies Home Medications and Allergies Home Medications Medication Instructions Recorded Confirmed Last Taken Type multivitamin [Multiple Vitamins] 1 tab PO DAILY 09/19/20 10/02/20 10/02/20 History Vitamin D3 1 tab PO DAILY 10/02/20 10/02/20 10/02/20 History elderberry fruit-honey See Rx Instructions .ROUTE .COMPLEX 10/02/20 10/02/20 10/02/20 History turmeric 400 mg PO DAILY 10/02/20 10/02/20 10/02/20 History Allergies Allergy/AdvReac Type Severity Reaction Status Date / Time No Known Allergies Allergy Verified 09/19/20 16:11 Current Medications Current Medications Generic Name Dose Route Start Last Admin Trade Name Gary PRN Reason Stop Dose Admin Aspirin 325 mg 10/03/20 09:00 10/03/20 08:11 Aspirin PO 325 mg DAILY ANAY Administration Enoxaparin Sodium 90 mg 10/02/20 23:45 10/03/20 00:47 Lovenox SUBCUT 90 mg Q24H ANAY Administration Furosemide 40 mg 10/03/20 09:00 10/03/20 10:26 Lasix IVP 40 mg Q12H ANAY Administration Levofloxacin/Dextrose 750 mg in 150 mls @ 100 mls/hr 10/03/20 09:00 10/03/20 08:11 Levaquin-D5w IV 100 mls/hr Q24H ANAY Administration Protocol PFS Acute PFSH: Medical History (Updated 10/03/20 @ 13:02 by Seun Rinaldi M.D) Atrial fibrillation HFrEF (heart failure with reduced ejection fraction) Hypertension No pertinent past medical history Surgical History Status post bilateral knee replacements Family History Grandmother Hypertension Social History Smoking and tobacco status: former smoker Quit status (tobacco): has quit using tobacco Alcohol intake: former Year of sobriety/quit date alcohol: 1 month ago Former alcohol use details: Half a pint of vodka, beer use daily Vitals/I&O/Wt Last Vital Signs Temp 97.5 F L 10/03/20 08:00 Pulse 90 10/03/20 09:26 Resp 18 10/03/20 08:00 BP 167/67 10/03/20 08:00 Pulse Ox 94 10/03/20 09:26 10/02/20 10/03/20 10/03/20 22:59 06:59 14:59 Intake Total 240 / 240 Output Total 800 / 800 100 / 100 Balance -800 / -500 140 / 140 Weight last 48 hrs Weight 205 lb Physical Exam Narrative: EXAM NARRATIVE: GENERAL: Patient is alert, awake and oriented x3. [] NECK: No jugular vein distension. [] HEENT: No cyanosis. No icterus. No pallor. [] HEART: Irregularly irregular. No murmur, rub or gallop. [] LUNGS: Clear to auscultate bilaterally. [] ABDOMEN: Soft, nontender and nondistended. Positive bowel sounds. No guarding, rebound or tenderness. [] CENTRAL NERVOUS SYSTEM: Grossly nonfocal. [] EXTREMITIES: Lower extremities with 1+ edema bilaterally. Pulses palpable in the lower extremities, both dorsalis pedis and posterior tibial. [] Data Micro: Micro: Microbiology 10/02/20 12:35 Blood Culture - Pr eliminary Blood SPECIMEN [facility] 10/02/20 12:35 Blood Culture - Pr eliminary Blood SPECIMEN [facility] A&P Assessment and plan (1) Atrial fibrillation: Status: Acute Qualifiers: Atrial fibrillation type: unspecified chronic Qualified Code(s): I48.20 - Chronic atrial fibrillation, unspecified (2) Hypertension: Status: Acute (3) HFrEF (heart failure with reduced ejection fraction): Status: Acute (4) Chest pain: Status: Acute Patient had recent onset atrial fibrillation and presented with HFrEF exacerbation with A. fib with RVR. Heart rate is better controlled now. Start metoprolol. His chads vasc score is 2 which warrants anticoagulation. At this time can continue with Lovenox. Will need oral anticoagulation at time of discharge. His low ejection fraction is likely secondary to atrial fibrillation however given his chest pressure symptoms for the last 2 weeks with low EF, we will perform coronary angiography with possible intervention and right heart cath once patient is euvolemic. Continue diuresis with IV Lasix. Once he is euvolemic further discussion regarding inpatient versus outpatient heart catheterization will be done. We will continue to follow the patient. Thank you for involving us with care of this patient. Please call with questions. Coding Level of Care Code Acute Manager Desktop for [facility]row Diagnoses Atrial fibrillation I48.20 Atrial fibrillation type: unspecified chronic Hypertension I10 HFrEF (heart failure with reduced ejection fraction) I50.20 Chest pain R07.9
--- NOTE | 2020-10-03 14:59 | PM.PN ---
Subjective Subjective: Interval history: Overnight patient noted improvement in respiratory distress. Additionally noted improvement in lower extremity edema. Denies any chest pain or shortness of breath. No fever, chills, nausea vomiting. Vitals/I&O/Wt Last Vital Signs Temp 98.1 F 10/03/20 11:43 Pulse 72 10/03/20 11:43 Resp 18 10/03/20 11:43 BP 145/68 10/03/20 11:43 Pulse Ox 95 10/03/20 11:43 10/02/20 10/03/20 10/03/20 22:59 06:59 14:59 Intake Total 720 / 720 Output Total 800 / 800 100 / 100 Balance -800 / -500 620 / 620 Weight last 48 hrs Weight 92.986 kg Physical Exam Const: COMMON NORMALS: no acute distress HENMT: COMMON NORMALS: normocephalic and atraumatic HEAD & SCALP: normocephalic and atraumatic Neck/C-Spine: COMMON NORMALS: no JVD Chest: COMMONS NORMALS: normal inspection of the chest Cardio: COMMON NORMALS: no JVD GI: COMMON NORMALS: Normal to inspection, nondistended, normoactive bowel sounds present, Soft to palpation and non-tender PALPATION: Yes Soft to palpation Extremity: GENERAL: Yes edema Data : 10/03/20 04:35 10/03/20 04:35 Micro: Microbiology 10/02/20 12:35 Blood Culture - Preliminary Blood NEGATIVE TO DATE 10/02/20 12:35 Blood Culture - Preliminary Blood NEGATIVE TO DATE A&P Assessment and plan (1) Atrial fibrillation: Status: Acute Qualifiers: Atrial fibrillation type: unspecified chronic Qualified Code(s): I48.20 - Chronic atrial fibrillation, unspecified (2) CHF (congestive heart failure): Status: Acute (3) Shortness of breath: Status: Acute Acute systolic heart failure exacerbation Acute respiratory distress with hypoxia Atrial fibrillation with rapid ventricular response DVT prophylaxis Plan Cardiology consulted for possible ischemia workup Continue Lasix 40 mg IV b.i.d. Replace potassium as needed Continue to monitor daily weights Wean oxygen as tolerated To start on low-dose beta-anusha Continue heparin drip for now OAC at discharge Repeat CBC/CMP in AM Attestations Medical Necessity Statement*: Require further hospitalization for IV Lasix, additional cardiac workup Time Spent in Patient Care: Greater than 35 minutes (>than 50% of time spent in counselling and/or direct pt care on unit). Coding Level of Care Code Acute Deoiling Machine Operator for Chg Fwd Diagnoses Atrial fibrillation I48.20 Atrial fibrillation type: unspecified chronic CHF (congestive heart failure) I50.9 Shortness of breath R06.02
[2020-10-04] VITALS (10 sets, daily range): BP systolic 113–138; BP diastolic 70–98; PULSE 86–104; RESP 17–20; TEMP 36.5–37; O2SAT 91–98
[2020-10-04 05:27] LABS: Basophils # 0.1 10^3/uL (0.0-0.1); Basophils % 0.7 %; Eosinophils # 0.4 10^3/uL (0.0-0.8); Eosinophils % 3.2 %; Hematocrit 40.8 % (42.0-52.0); Lymphocytes # 2.3 10^3/uL (0.8-4.8); Lymphocytes % 20.7 %; Mean Corpuscular HGB Conc 31.9 g/dL (30.0-36.0); Mean Corpuscular Hemoglobin 30.4 pg (28.0-34.0); Mean Corpuscular Volume 95.6 fL (80-94); Mean Platelet Volume 10.9 fL (7.4-10.4); Monocytes # 0.9 10^3/uL (0.2-0.9); Neutrophils # 7.35 10^3/uL (1.8-7.7); Nucleated Red Blood Cells % 0 %; Platelet Count 328 10^3/cmm (130-400); Red Blood Count 4.27 10^6/uL (4.1-5.3); Red Cell Distribution Width 12.7 % (12.1-15.1)
[2020-10-04 05:49] LABS: Albumin Level 3.2 g/dL (3.5-5.2); Alkaline Phosphatase 85 IU/L (40-130); Blood Urea Nitrogen 21 mg/dL (6-20); Calcium 8.8 mg/dL (8.5-10.5); Carbon Dioxide 25 mmol/L (22-29); Chloride 102 mmol/L (98-107); Globulin 2.3 g/dL (1.3-4.6); Glomerular Filtration Rate 77.6 mL/min (90-130); Glucose 112 mg/dL (65-115); Osmolality Calculated 294 mOsm/kg (285-295); Sodium 140 mmol/L (136-145); Total Bilirubin 0.3 mg/dL (0.15-1.2); Total Protein 5.5 g/dL (6.6-8.7)
[2020-10-04 05:56] LABS: Anion Gap 17.1 (5-19); Potassium 4.1 mmol/L (3.5-5.1)
[2020-10-04 05:57] LABS: Alanine Aminotransferase 43 U/L (0-41); Aspartate Amino Transferase 38 U/L (0-40)
[2020-10-04] MEDS: FUROsemide 10 mg/mL SDV 2mL 40 MG IVP ×2 (07:47→21:28)
[2020-10-04] MEDS: aspirin 325 mg Tablet PO (07:47)
[2020-10-04] MEDS: levofloxacin-dextrose 5 % 750 MG/150 ML PREMIX 100 MG IV (07:47)
[2020-10-04] MEDS: metoprolol tartrate 1 mg/1 mL SDV 5 mL 2.5 MG IV (13:29)
--- NOTE | 2020-10-04 14:29 | PM.PN ---
Subjective Subjective: Interval history: No acute events overnight. Patient uncomfortable in bed during my examination on 2 L nasal cannula saturating 96%. During my examination was taken off oxygen continue to maintain more than 92%. He states he is feeling a lot better. Denies any nausea, vomiting, headache, dizziness. Having occasional runs of A. fib with RVR going up to 150s specially when he straining for urine. Vitals/I&O/Wt Last Vital Signs Temp 97.7 F 10/04/20 11:30 Pulse 104 H 10/04/20 12:55 Resp 20 H 10/04/20 11:30 BP 138/98 10/04/20 12:55 Pulse Ox 91 10/04/20 11:30 10/03/20 10/04/20 10/04/20 22:59 06:59 14:59 Intake Total 1200 / 2070 880 / 880 Output Total 725 / 825 1325 / 2150 1080 / 1080 Balance 475 / 1245 -1325 / -80 -200 / -200 Physical Exam Narrative: EXAM NARRATIVE: General: No acute distress, AO x3 HEENT: PERRLA, pupils bilaterally equal and reactive Chest: Normal vesicular breath sounds, no added sounds, equal good air entry bilaterally CVS: S1-S2 regular, pansystolic murmur at the apex, JVD mildly elevated, no tachycardia, no gallops, no rubs Abdomen: Soft, nontender, no organomegaly, bowel sounds present Neuro: No focal deficits, no facial deformity, AO x3, power 5/5 in all limbs Data : 10/04/20 04:29 10/04/20 04:35 Micro: Microbiology 10/02/20 12:35 Blood Culture - Preliminary Blood NEGATIVE TO DATE 10/02/20 12:35 Blood Culture - Preliminary Blood NEGATIVE TO DATE A&P Assessment and plan (1) Shortness of breath: Status: Acute (2) CHF (congestive heart failure): Status: Acute (3) HFrEF (heart failure with reduced ejection fraction): Status: Acute (4) Atrial fibrillation: Status: Acute Qualifiers: Atrial fibrillation type: unspecified chronic Qualified Code(s): I48.20 - Chronic atrial fibrillation, unspecified (5) Hypertension: Status: Acute Additional A&P Information Shortness of breath secondary to acute exacerbation of congestive heart failure. Reduced ejection fraction. Last echocardiogram done in July shows an EF of 29% with biatrial enlargement. Patient due for ischemic work-up. Cardiology is on board. Plan for cardiac angiogram with left heart and right heart cath tomorrow morning. N.p.o. after midnight. Continue Lasix 40 mg IV twice daily. Replace potassium as needed. HbA1c 5.7, lipid panel appreciated. Strict input output charting. Patient overall 780 cc negative since admission. Daily weights. Continue with aspirin 81 mg daily. No signs of pneumonia or infection at present. Stop levofloxacin. Pro-Dariusz negative, no consolidation on chest x-ray. Atrial fibrillation: Mostly rate rate controlled with occasional bursts of rapid ventricular response. Start patient on Lopressor 25 mg twice daily. Lovenox full dose 90 mg every 12 hourly. Can transition over to Eliquis once cardiac angiogram done. Full code. Low salt cardiac diet. Fluid restriction up to 1500 cc, n.p.o. after midnight. Full dose Lovenox. Attestations Medical Necessity Statement*: Patient requires further hospitalization for evaluation and management of shortness of breath because of acute congestive heart failure, awaiting ischemic cardiac work-up. Coding Level of Care Code Acute Food Truck Caterer for g Fwd Diagnoses Shortness of breath R06.02 CHF (congestive heart failure) I50.9 HFrEF (heart failure with reduced ejection fraction) I50.20 Atrial fibrillation I48.20 Atrial fibrillation type: unspecified chronic Hypertension I10
[2020-10-04 16:02] LABS: Bacteria Urine TRACE /hpf; Bilirubin Urine Neg (Negative); Blood Urine Neg (Negative); Glucose Urine UA Norm (Normal); Ketones Urine Negative (Negative); Leukocyte Esterase Urine Negative (Negative); Nitrate Urine Negative (Negative); Protein Urine Neg (Negative); Specific Gravity, Urine 1.025 (1.005-1.030); Urine Appearance Clear (CLEAR); Urine Color Yellow (Yellow); Urobilinogen Urine Neg (Negative); WBC Urine 0-4 /hpf (0-5); pH Urine 6 (5-7)
[2020-10-04 16:03] LABS: Add Urine Culture? No
[2020-10-04] MEDS: metoprolol tartrate 25 mg Tablet PO (16:53)
[2020-10-04] MEDS: enoxaparin 100 mg/mL Syringe 90 MG SUBCUT (16:54)
--- NOTE | 2020-10-04 18:01 | PC.NURSE ---
SHIFT SUMMARY PATIENT HAS BEEN IN A-FIB ALL DAY TODAY. AT ONE POINT THIS AFTERNOON, PATIENT WAS IN A-FIB WITH A RATE IN THE 150'S-170'S AND CLIMBING. BP WAS STABLE. DR. CANTU NOTIFIED. 2.5MG OF IV METOPROLOL WAS ORDERED AND GIVEN. PATIENT THEN STARTED ON ORAL METOPROLOL 25MG BID. PATIENT'S HEART RATE HAS REMAINED STABLE SINCE. GOOD OUTPUT. PATIENT REQUIRING 2L OF OXYGEN. PLAN IS FOR PATIENT TO GO TO DATAWAREHOUSE DEVELOPER TOMORROW.
--- NOTE | 2020-10-04 21:32 | P.PN_ITS ---
Subjective Subjective: Interval history: Patient has been doing well. He says that shortness of breath has improved significantly. Has been responding to Lasix. Vitals/I&O/Wt Last Vital Signs Temp 98.6 F 10/04/20 20:00 Pulse 86 10/04/20 20:00 Resp 19 H 10/04/20 20:00 BP 114/76 10/04/20 20:00 Pulse Ox 94 10/04/20 20:00 10/04/20 10/04/20 10/04/20 06:59 14:59 22:59 Intake Total 880 / 880 Output Total 1325 / 2150 1080 / 1080 300 / 1380 Balance -1325 / -80 -200 / -200 -300 / -500 Physical Exam Narrative: EXAM NARRATIVE: GENERAL: Patient is alert, awake and oriented x3. [] NECK: No jugular vein distension. [] HEENT: No cyanosis. No icterus. No pallor. [] HEART: Irregularly irregular. No murmur, rub or gallop. [] LUNGS: Clear to auscultate bilaterally. [] ABDOMEN: Soft, nontender and nondistended. Positive bowel sounds. No guarding, rebound or tenderness. [] CENTRAL NERVOUS SYSTEM: Grossly nonfocal. [] EXTREMITIES: Lower extremities with no edema bilaterally. Pulses palpable in the lower extremities, both dorsalis pedis and posterior tibial. [] Data : 10/04/20 04:29 10/04/20 04:35 A&P Assessment and plan (1) Atrial fibrillation: Status: Acute Qualifiers: Atrial fibrillation type: unspecified chronic Qualified Code(s): I48.20 - Chronic atrial fibrillation, unspecified (2) Hypertension: Status: Acute (3) HFrEF (heart failure with reduced ejection fraction): Status: Acute (4) Chest pain: Status: Acute Patient had recent onset atrial fibrillation and presented with HFrEF exacerbation and A. fib with RVR. Heart rate is better controlled now. Uptitrate Metoprolol Continue Lovenox for anticoagulation Plan for left and right heart cath to assess cardiomyopathy tomorrow. I have discussed the risks and benefits of the procedure. Patient understands the risks (including bleeding, infection, kidney function worsening, heart attack, [place], )and benefits and wants to proceed with the procedure. Continue diuresis Thank you for involving us with care of this patient. Please call with questions. Attestations Medical Necessity Statement*: Care expected to cross 2 midnights. Plan for coronary angiogram tomorrrow. Coding Level of Care Code Acute Emergency Room Clinician for Geoff Sparrow Diagnoses Atrial fibrillation I48.20 Atrial fibrillation type: unspecified chronic Hypertension I10 HFrEF (heart failure with reduced ejection fraction) I50.20 Chest pain R07.9
[2020-10-05] VITALS (30 sets, daily range): BP systolic 100–134; BP diastolic 76–102; PULSE 84–115; RESP 10–27; TEMP 36–37; O2SAT 92–99
[2020-10-05] MEDS: enoxaparin 100 mg/mL Syringe 90 MG SUBCUT (04:02)
[2020-10-05 06:30] LABS: Basophils # 0.1 10^3/uL (0.0-0.1); Basophils % 0.7 %; Eosinophils # 0.4 10^3/uL (0.0-0.8); Eosinophils % 4.2 %; Hematocrit 40.5 % (42.0-52.0); Hemoglobin 13.1 g/dL (11.7-16.6); Lymphocytes % 22.4 %; Mean Corpuscular HGB Conc 32.3 g/dL (30.0-36.0); Mean Corpuscular Hemoglobin 30.8 pg (28.0-34.0); Mean Corpuscular Volume 95.1 fL (80-94); Mean Platelet Volume 9.8 fL (7.4-10.4); Monocytes # 0.7 10^3/uL (0.2-0.9); Monocytes % 8.5 %; Neutrophils # 5.59 10^3/uL (1.8-7.7); Nucleated Red Blood Cells % 0 %; Platelet Count 375 10^3/cmm (130-400); Red Blood Count 4.26 10^6/uL (4.1-5.3); Red Cell Distribution Width 12.5 % (12.1-15.1); White Blood Count 8.7 10^3/uL (4.0-10.0)
[2020-10-05 06:40] LABS: Alanine Aminotransferase 38 U/L (0-41); Alkaline Phosphatase 78 IU/L (40-130); Anion Gap 14.5 (5-19); Aspartate Amino Transferase 27 U/L (0-40); Blood Urea Nitrogen 21 mg/dL (6-20); Calcium 8.6 mg/dL (8.5-10.5); Carbon Dioxide 28 mmol/L (22-29); Chloride 103 mmol/L (98-107); Globulin 2.7 g/dL (1.3-4.6); Glomerular Filtration Rate 69.5 mL/min (90-130); Glucose 107 mg/dL (65-115); Osmolality Calculated 297 mOsm/kg (285-295); Potassium 3.5 mmol/L (3.5-5.1); Sodium 142 mmol/L (136-145); Total Bilirubin 0.4 mg/dL (0.15-1.2); Total Protein 5.7 g/dL (6.6-8.7)
--- NOTE | 2020-10-05 08:19 | XACV_ITS ---
Exam Room: [facility] Ht: 178 cm Wt: 93 kg BSA: 2.17 m2 Gender: Male : 1965 Any Known Allergies: No known allergies Exam Priority: Routine Procedure(s): Procedure Description: Diagnostic procedure Procedure Description: Left Heart Catheterization Procedure Description: Right Heart Catheterization Procedure Description: O2 saturation Procedure Description: Coronary Angiography Diagnostic Cath Status: Urgent Diagnostic Findings * Left main artery: Minor irregularities noted. LAD: Minor irregularities are noted. It gives rise to a large diagonal branch. In the mid to distal segment, it gives rise to a large septal branch which almost forms a dual LAD system. No significant stenosis noted. Left circumflex artery: No significant stenosis is noted. It is a large vessel which gives rise to a large OM branch. Ramus intermedius artery: It is a large vessel that has diffuse disease in the distal segment. RCA: RCA has an anterior takeoff. It is a tortuous vessel. No significant stenosis is noted. . * Right heart cath findings: RA pressure: 22 mmHg(mean pressure) RV pressure: 53/17(mean 20 mmHg) PA pressure: 59/38(mean 46 mmHg) Wedge pressure:Recorded as mean 34 mmHg. LVEDP was 22 mmHg, I do not think this was an accurate wedge pressure and will take 22 mmHg for left-sided pressure. Cardiac output: 3.2 L/min . * No significant disease noted in the Left Main, LAD, Circumflex, or RCA coronary arteries. * Coronary angiography shows right dominance. Conclusions 1. Elevated right and left-sided pressures. 2. Low cardiac output however clinically patient is not in cardiogenic shock. 3. No significant disease noted in the Left Main, LAD, Circumflex, or RCA coronary arteries. Recommendations * Atrial fibrillation rate controlled. * Continue diuresis as cardiac pressures are still high. * Optimize medical management for heart failure. Pressures Phase:Rest AO : 104 / 83 ( 88 ) @ 6:49:00 AM 114 / 86 ( 98 ) @ 6:53:00 AM 121 / 85 ( 99 ) @ 7:04:00 AM 118 / 84 ( 99 ) @ 7:04:00 AM LV : 119 / 5 / @ 7:04:00 AM 121 / 7 / @ 7:04:00 AM 119 / 6 / @ 7:04:00 AM RV : 53 / 17 / @ 6:18:00 AM PA : 59 / 38 ( 46 ) @ 6:20:00 AM RA : a wave = v wave = mean = 22 @ 6:15:00 AM O2 Content Phase:Rest PA : O2 Content O2: 40.9 @ 6:49:00 AM Saturations Phase:Rest AO : 89 @ 7:04:00 AM RA : 42 @ 6:53:00 AM PA : 41 @ 6:49:00 AM Cardiac Output Phase:Rest Traci : 3 @ 6:49:00 AM Traci Cardiac Index: 2 @ 6:49:00 AM Valves Phase:DefaultPhase AV : 0.0 @ 1:28:40 PM AV Mean Gradient: 0.0 @ 1:28:40 PM Clinical Evaluation EBL: 5mL-10mL Procedural Details Procedure Consent Obtained. Pre-Procedure Time Out. Identified patient by full name and date of as verbalized by the patient/guarantor. Does the consent match the physician's order: Yes. Accurate & Complete Informed Consent: Yes. Inpatient/Outpatient History & Physical on Chart: Yes. If H&P is completed, is and addenduem needed: No; If yes, is the addendum complete: N/A. Visualize and Verify Site with Patient/Guarantor: N/A. Relevant Radiology Images available: N/A. Pre-op teaching completed and patient verbalized understanding. The risks, benefits, and alternatives of sedation and/or procedure were discussed by physician. The patient agrees to continue. Procedure started. [facility] Clinical Fraility Score: 3: Managing Well. Credit Risk Specialist Indications: Cardiomyopathy. Chest Pain Symptom Assessment: Atypical Angina. Cardiovascular Instability: No. Correct patient, site and procedure confirmed by cath team. PERRLA. Strong, equal hand bulk fluids handler bilaterally. Lungs clear x 5 lobes. IV Site on Arrival: 20 gauge in the right anticubital. IV Site on Arrival: 18 gauge in the right anticubital. IV Fluids: 0.9% NaCl at KVO. 0 mL infused prior to sleep lab technician. Pre Procedural Pulses: bilateral dorsalis pedis was Doppled. Pre Procedural Pulses: bilateral posterior tibial was Doppled. right brachial was prepped with chloroprep then draped in the usual sterile fashion. right radial was prepped with chloroprep then draped in the usual sterile fashion. bilateral groins was prepped with chloroprep then draped in the usual sterile fashion. Physician arrived. Baseline sample Acquired. HR: 94 BPM. Equipment: 6F - Radial. Cardiac Cath Pack. ACIST Manifold Kit Model BT 2000. Heparinized Saline (2 units/mL), 1000 mL bag. Physician scrubbed in. Immediate Pre-Procedure Time Out. Correct Patient: Yes; Correct Procedure: Yes; Correct Site: Yes; Correct Patient Position: Yes; Correct Supplies: Yes; Dried Flammable Prep: Yes; Blood Products Available: N/A;. Wire inserted through the IV in right brachial vein. Lidocaine 1% infiltrated to the right brachial. IV catheter removed over wire. [place] MON catheter inserted. [place] out. Lidocaine 1% infiltrated to the right radial. Arterial access obtained. A 5 irish TIG catheter in over wire. Wire out. Hand injection through catheter. Glidewire inserted. Glidewire out. Hand injection through catheter. Catheter out. Physician moving to femoral approach due to tortuous anatomy. Lidocaine 1% infiltrated to the right groin. Oxygen started at 3liters/min via nasal canula. Arterial access obtained with micropuncture set. Wire and needle out. Pt has very tortuous arteries. Physician moving to left femoral artery. Lidocaine 1% infiltrated to the left groin. Arterial access obtained with micropuncture set. A 5 irish JL4 catheter in over wire. Multiple views taken of left coronary artery. Catheter out. A 5 irish JR4 catheter in over wire. Multiple views taken of right coronary artery. Catheter out. A 5 irish Angled Pig catheter in over wire. EDP Sample taken: LV 119/5,23; HR: 88 BPM; SpO2: 94%. EDP Sample taken: LV 121/7,20; HR: 89 BPM; SpO2: 95%. Pullback taken: LV 119/6,18; AO 121/85(99); Mean: 0mmHg, Peak to Peak: 0mmHg, SEP: 7sec/min; HR: 84 BPM; SpO2: 96%. Catheter out. A TR Band was successful obtaining hemostatsis at the Right Radial artery insertion site. TR band placed. Hemostasis obtained. Post Procedure: Pulses reassessed and unchanged. MYNX closure device used to left femoral artery. Sheath removed. Lot # [id number] exp date 06/29/2022. 14 g peripheral IV inserted to right brachial vein after 6 fr sheath removed over wire. PERRLA. Strong, equal hand bulk fluids handler bilaterally. No VTE prophylaxis required. Contrast type used: Omnipaque 300 mgI/mL, 500 mL bottle. Medication's Wasted: Nitro = 49.6 mg. Medication's Wasted: Heparin = 1000 units. Total IV fluids: 50 mL. Post-op diagnosis: non obstructive CAD, elevated Right and Left pressures. Complications: none. Estimated blood loss: 5mL-10mL. Procedure completed. Patient transferred by bed to 1st floor. Vital chart was stopped. Access Site Site: Right Brachial Vein Sheath Size: 6 Fr Hemostasis Success: Unsuccessful Site: Right Radial artery Sheath Size: 6 Fr Hemostasis Method: TR Band Hemostasis Success: Successful Site: Left Femoral artery Sheath Size: 6 Fr Hemostasis Success: Unsuccessful Procedure Medications Start: 11:56 AM Stop: 11:56 AM Medication: Versed Amount: 1 mg Route: I.V. Start: 11:56 AM Stop: 11:56 AM Medication: Fentanyl Amount: 50 mcg Route: I.V. Start: 12:11 PM Stop: 12:11 PM Medication: Versed Amount: 1 mg Route: I.V. Start: 12:11 PM Stop: 12:11 PM Medication: Fentanyl Amount: 50 mcg Route: I.V. Start: 12:29 PM Stop: 12:29 PM Medication: Nitrogylcerin Amount: 200 mcg Route: I.A. Start: 12:50 PM Stop: 12:50 PM Medication: Nitrogylcerin Amount: 200 mcg Route: I.C. I, the attending physician, have reviewed and verified all procedure medications. Yes, all medications given per verbal order History/Risk Factors Hypertension: Yes Dyslipidemia: No Peripheral Arterial Disease (PAD): No Myocardial Infarction (PR): Yes Obesity: No Renal Disease: No Tobacco Use: Former Prior Interventions PCI: No CABG: No Valve Surgery: No Report Signatures Finalized by Seun Rinaldi MD on 10/07/2020 04:59 PM
[2020-10-05] MEDS: metoprolol tartrate 25 mg Tablet PO ×2 (09:59→18:35)
[2020-10-05] MEDS: FUROsemide 10 mg/mL SDV 2mL 40 MG IVP ×2 (09:59→20:00)
[2020-10-05] MEDS: aspirin 81 mg EC Tablet PO (09:59)
--- NOTE | 2020-10-05 10:00 | PC.NURSE ---
heart to heart rounding Notified Dr. Bah on pt's episode of 13 beat/ about 3 second of Vtach. pt was sleeping and had a dream. denies any symptoms.
--- NOTE | 2020-10-05 11:27 | P.PN_ITS ---
Subjective Subjective: Interval history: History and physical reviewed. Patient reports he feels much better since diuresed. He denies any chest discomfort. He is less short of breath. He still feels weak. Medications: Reviewed: Yes Vitals/I&O/Wt Last Vital Signs Temp 96.8 F L 10/05/20 07:18 Pulse 103 H 10/05/20 07:18 Resp 13 10/05/20 07:18 BP 109/88 10/05/20 07:18 Pulse Ox 92 10/05/20 07:18 10/04/20 10/05/20 10/05/20 22:59 06:59 14:59 Output Total 1200 / 2280 Balance -1200 / -1400 Weight last 48 hrs Weight 91.183 kg Physical Exam Narrative: EXAM NARRATIVE: General exam is no apparent distress Cardiovascular regular rate and rhythm without murmur Lungs clear no wheezing or crackles Abdomen is soft nontender with positive bowel sounds. Extremities no cyanosis clubbing or edema Data : 10/05/20 05:50 10/05/20 05:50 A&P Assessment and plan (1) Shortness of breath: Status: Acute (2) CHF (congestive heart failure): Status: Acute (3) HFrEF (heart failure with reduced ejection fraction): Status: Acute (4) Atrial fibrillation: Status: Acute Qualifiers: Atrial fibrillation type: unspecified chronic Qualified Code(s): I48.20 - Chronic atrial fibrillation, unspecified (5) Hypertension: Status: Acute Acute systolic heart failure. He appears compensated currently. Acute respiratory distress with hypoxia Atrial fibrillation with rapid ventricular response DVT prophylaxis Plan Cardiology consulted for possible ischemia workup Continue Lasix 40 mg IV b.i.d. Replace potassium as needed Continue to monitor daily weights Wean oxygen as tolerated To start on low-dose beta-anusha Continue heparin drip for now OAC at discharge Repeat CBC/CMP in AM Additional A&P Information Acute systolic heart failure. He appears compensated currently. Lasix 40 mg IV every 12 hours for diuresis. Beta-anusha, in the form of metoprolol has been initiated. He will also be a candidate for BECKY inhibitor if his blood pressure tolerates. Cardiology is doing left and right heart cath today to pursue etiology. Their consult is greatly appreciated. Echocardiogram September 20 demonstrated an EF of approximately 30% with no major valvular abnormalities. Diffuse hypokinesis was noted. Decision will have to occur on whether patient is a candidate for a LifeVest upon discharge. Atrial fibrillation. He has been placed on a beta-anusha. Current anticoagulation is with full dose Lovenox. Rate is currently controlled. Full code Lovenox will suffice for DVT prophylaxis Attestations Medical Necessity Statement*: Needs continued hospitalization, for evaluation of new onset heart failure, and atrial fibrillation. Coronary angiogram is being performed today. Coding Level of Care Code Acute [facility] Shortness of breath R06.02 CHF (congestive heart failure) I50.9 HFrEF (heart failure with reduced ejection fraction) I50.20 Atrial fibrillation I48.20 Atrial fibrillation type: unspecified chronic Hypertension I10
--- NOTE | 2020-10-05 11:50 | P.PN_ITS ---
Subjective Subjective: Interval history: Patient is doing well. Underwent right and left heart cath today. It showed non obstructive Coronary artery disease with elevated right and left sided cardiac pressures. Tele has showed non sustained VT. Vitals/I&O/Wt Last Vital Signs Temp 97.9 F 10/05/20 11:29 Pulse 94 10/05/20 11:29 Resp 21 H 10/05/20 11:29 BP 121/89 10/05/20 11:29 Pulse Ox 94 10/05/20 11:29 10/04/20 10/05/20 10/05/20 22:59 06:59 14:59 Output Total 1200 / 2280 Balance -1200 / -1400 Weight last 48 hrs Weight 201 lb 0.4 oz Physical Exam Narrative: EXAM NARRATIVE: GENERAL: Patient is alert, awake and oriented x3. [] NECK: No jugular vein distension. [] HEENT: No cyanosis. No icterus. No pallor. [] HEART: Irregularly irregular. No murmur, rub or gallop. [] LUNGS: Clear to auscultate bilaterally. [] ABDOMEN: Soft, nontender and nondistended. Positive bowel sounds. No guarding, rebound or tenderness. [] CENTRAL NERVOUS SYSTEM: Grossly nonfocal. [] EXTREMITIES: Lower extremities with no edema bilaterally. Pulses palpable in the lower extremities, both dorsalis pedis and posterior tibial. [] Data : 10/06/20 04:39 10/06/20 04:39 A&P Assessment and plan (1) Atrial fibrillation: Status: Acute Qualifiers: Atrial fibrillation type: unspecified chronic Qualified Code(s): I48.20 - Chronic atrial fibrillation, unspecified (2) Hypertension: Status: Acute (3) HFrEF (heart failure with reduced ejection fraction): Status: Acute (4) NSVT (nonsustained ventricular tachycardia): Status: Acute Patient underwent left and right heart cath today. He has non obstructive CAD and non ischemic cardiomyopathy likely secondary to atrial fibrillation Right and left cardiac pressures are still elevated. Continue IV diuretics for today and can switch to PO Lasix tomorrow Switch anticoagulation to Eliquis 5 mg BID. Uptitrate metoprolol. Add Lisinopril Patient has been having NSVT and frequent PVCs. Recommend LifeVest. Will need repeat echo in 3 months Monitor renal function Outpatient cardiology follow up Will likely be ready for discharge tomorrow Attestations Medical Necessity Statement*: Care expected to cross 2 midnights. Coding Level of Care Code Acute Assembly Line Brazer for [facility] Fwd Diagnoses Atrial fibrillation I48.20 Atrial fibrillation type: unspecified chronic Hypertension I10 HFrEF (heart failure with reduced ejection fraction) I50.20 NSVT (nonsustained ventricular tachycardia) I47.2
--- NOTE | 2020-10-05 11:52 | P.HPUD_ITS ---
Surgery/Procedure H&P Update DATE OF PROCEDURE: October 05, 2020 DATE H&P PERFORMED: 10/03/20 H&P UPDATE INFORMATION: I have reviewed H&P completed within last 30 days, I have examined patient prior to procedure and No changes to prior documentation PREOP DIAGNOSIS: New onset heart failure PRIMARY INDICATION FOR PROCEDURE: New onset heart failure PLANNED PROCEDURE: Right heart cath+Left heart cath/coronary angiograpy with possible Percutanepis coronary intervention PATIENT REASSESSED PRIOR TO SEDATION, WITH NO CHANGE NOTED: Yes PHYSICAL EXAM: alert, oriented x 3 and clear to auscultation bilaterally AIRWAY EVAL/ANESTHESIA PLAN: normal airway, see other exam findings, ASA II, Ri sks, benefits & alternatives of sedation and/or procedure discussed and Patient agrees to continue as planned
--- NOTE | 2020-10-05 12:16 | PC.NURSE ---
to labor economics teacher via bed
--- NOTE | 2020-10-05 13:30 | PC.NURSE ---
Back from laborer bituminous paving alert, orientedx4. Denies any pain or discomfort. TR band intact on right wrist. no hematoma, swelling or bleeding. radial pulse +3 on palpation. Left groin dressing intact. No bleeding, hematoma, swelling or bleeding post mynx closure device. DP, PT pulses palpable +3. Activity restrictions discuss to pt post angiogram. pt verbalizes understanding. call light within reach.
--- NOTE | 2020-10-05 18:10 | PC.NURSE ---
TR band off at 1800, removed per protocol. Patient tolerated well. dressing applied, CDI. Patient ambulated in hallway. groin site reassessed. asymptomatic. Patient tolerated well. Nurse to continue to monitor.
--- NOTE | 2020-10-05 19:26 | PC.NURSE ---
Received report from VARGHESE Jj. Patient resting in bed with eyes closed. Spontaneously opens eyes with environmental stimuli. Patient is s/p LHC and RHC with right radial access and left groin access. Dressings to both sites remain c,d,i with no s/s of bleeding or hematoma formation observed. Instructed patient on furosemide administration. Patient verbalized understanding. Assessment completed as documented.
[2020-10-06] VITALS (8 sets, daily range): BP systolic 119–132; BP diastolic 85–87; PULSE 82–112; RESP 16–32; TEMP 36.7–37.1; O2SAT 90–97
[2020-10-06] MEDS: enoxaparin 100 mg/mL Syringe 90 MG SUBCUT (04:07)
[2020-10-06 05:14] LABS: Basophils # 0.1 10^3/uL (0.0-0.1); Basophils % 0.7 %; Eosinophils # 0.5 10^3/uL (0.0-0.8); Eosinophils % 5.2 %; Hematocrit 40.5 % (42.0-52.0); Hemoglobin 12.9 g/dL (11.7-16.6); Lymphocytes # 2.1 10^3/uL (0.8-4.8); Lymphocytes % 23.7 %; Mean Corpuscular HGB Conc 31.9 g/dL (30.0-36.0); Mean Corpuscular Hemoglobin 29.9 pg (28.0-34.0); Mean Platelet Volume 9.6 fL (7.4-10.4); Monocytes # 0.6 10^3/uL (0.2-0.9); Monocytes % 7.3 %; Neutrophils # 5.47 10^3/uL (1.8-7.7); Neutrophils % 62.8 %; Nucleated Red Blood Cells % 0 %; Platelet Count 382 10^3/cmm (130-400); Red Blood Count 4.31 10^6/uL (4.1-5.3); Red Cell Distribution Width 12.4 % (12.1-15.1); White Blood Count 8.7 10^3/uL (4.0-10.0)
[2020-10-06 05:28] LABS: Anion Gap 13.7 (5-19); Blood Urea Nitrogen 24 mg/dL (6-20); Carbon Dioxide 30 mmol/L (22-29); Chloride 103 mmol/L (98-107); Glomerular Filtration Rate 62.9 mL/min (90-130); Glucose 119 mg/dL (65-115); Magnesium 2.1 mg/dL (1.7-2.3); Osmolality Calculated 301 mOsm/kg (285-295); Potassium 3.7 mmol/L (3.5-5.1); Sodium 143 mmol/L (136-145)
[2020-10-06] MEDS: aspirin 81 mg EC Tablet PO (08:54)
[2020-10-06] MEDS: FUROsemide 10 mg/mL SDV 2mL 40 MG IVP (08:54)
[2020-10-06] MEDS: metoprolol tartrate 25 mg Tablet PO (08:54)
--- NOTE | 2020-10-06 09:23 | PM.DCS ---
Discharge Providers Date of Admission: 10/02/20 14:46 Date of Discharge: October 06, 2020 Attending Provider at Admission: Bronson Islas Attending Provider at Discharge: Cari Shi MD Consults: Cardiology, Dr. Rinaldi Primary Care Provider: NE Diagnoses at Discharge Discharge Diagnosis (1) Atrial fibrillation: Status: Chronic Permanent problem details: -Transition to oral anticoagulation with Eliquis -Continue beta-anusha Qualifiers: Atrial fibrillation type: unspecified chronic Qualified Code(s): I48.20 - Chronic atrial fibrillation, unspecified (2) Hypertension: Status: Chronic Permanent problem details: -Hemodynamically stable -Low-dose ACEi added Qualifiers: Hypertension type: essential hypertension Qualified Code(s): I10 - Essential (primary) hypertension (3) HFrEF (heart failure with reduced ejection fraction): Status: Chronic Permanent problem details: -Echo: EF=29%, severe diffuse hypokinesis, mild MR, trace AR, trace IA, mild biatrial enlargement -s/p left and right heart cath showed non-obstructive CAD -LifeVest recommended (4) NSVT (nonsustained ventricular tachycardia): Status: Acute Other Information Additional DC diagnoses/information: -severe ISAC; would benefit from CPAP Reason for Visit Reason for Visit: SOB Hospital Course Hospital Course: Patient was readmitted to the hospital following a prior visit in August during which time he had left AGAINST MEDICAL ADVICE. He presented with symptoms of increased shortness of breath, orthopnea, increased lower extremity edema concerning for acute CHF exacerbation and was started on IV diuresis. He had had a recent echocardiogram showing a depressed ejection fraction of 29% hesitating further work-up, cardiology was formally consulted. He had also been found to have findings suspicious for pneumonia on chest x-ray and CT as well. He did receive some antibiotic therapy though this was not continued for the rest of his hospital course. He was started on a beta-anusha secondary to A. fib with RVR and anticoagulation with therapeutic Lovenox. Once appropriately diuresed he had a left and right heart cath done showing non-obstructive CAD. Given his depressed EF and risk of arrhythmia, LifeVest has been recommended and is currently being arranged. Patient is much better clinically compensated and has been transitioned to oral diuresis. He has been transitioned to oral anticoagulation, is to be continued on beta-anusha and BECKY inhibitor has been added. He will require close follow-up with cardiology as well as his primary care provider. He has required supplemental oxygen support during much of his hospital stay; he is not oxygen dependent at baseline, so home oxygen evaluation done prior to discharge and he does not qualify for it. He is tolerating oral intake without difficulty, voiding independently, is hemodynamically stable and afebrile, ambulatory. Labs are stable. Discharge Summary: -Patient to follow up with primary care provider within 1 week -Patient to follow up with Margaret Osuna in 1 week at [facility] -Patient to follow up with Dr. Rinaldi in 1 month Physical Exam Const: COMMON NORMALS: no acute distress, patient oriented x3 and alert GENERAL APPEARANCE: cooperative and comfortable ORIENTATION/CONSCIOUSNESS: Yes awake HENMT: COMMON NORMALS: normocephalic, atraumatic, hearing grossly normal bilaterally and moist oral mucous membranes HEAD & SCALP: normocephalic and atraumatic Eye: COMMON NORMALS: Equal, round and reactive pupils present, EOMs intact bilaterally and conjunctivae normal CONJUNCTIVA: Yes conjunctivae normal PUPIL: Yes Equal, round and reactive pupils present Neck/C-Spine: COMMON NORMALS: full ROM GENERAL: Yes normal visual inspection and Yes trachea midline Resp: COMMON NORMALS: normal respiratory effort, No retractions, No use of accessory muscles and clear to auscultation bilaterally EFFORT & INSPECTION: Yes able to speak in complete sentences, Yes symmetric chest movement and No tachypneic AUSCULTATION: clear to auscultation bilaterally OTHER: -on 2 L NC Cardio: COMMON NORMALS: regular rate, regular rhythm, S1 normal heart sound present, S2 normal heart sound present and No murmurs present (Cardio) RATE: regular rate RHYTHM: regular rhythm HEART SOUNDS: S1 normal heart sound present and S2 normal heart sound present GI: COMMON NORMALS: Normal to inspection, nondistended, normoactive bowel sounds present, Soft to palpation and non-tender PALPATION: Yes Soft to palpation Extremity: COMMON NORMALS: normal to inspection, full ROM and no clubbing, cyanosis or edema; negative for no pedal edema Neuro: COMMON NORMALS: patient oriented x3, moves all extremities, no focal motor deficits, no sensory deficits noted and gait normal SENSORIUM/ORIENTATION: Yes alert Psych: COMMON NORMALS: mental status grossly normal, Normal thought process present, cooperative, normal affect and speech normal SPEECH: Yes normal speech THOUGHT PROCESS: Normal thought process present Skin: COMMON NORMALS: no rashes or lesions noted, no jaundice, no petechiae and no mottling GENERAL SKIN EXAM: no rashes or lesions noted Discharge Data Data Completed and Pending: Completed Studies During Hospitalization Category Date Time Status CTA chest [CT ang io chest PE protcl [id number]] Urgent Cat Scan 10/02/20 11:51 Completed XR chest 1V tracie ble [id number] Stat Exams 10/02/20 11:33 Completed Pending at discharge Category Date Time Status [employer] request for service Routin e Exams 10/05/20 08:19 Taken Blood Culture Sta t Lab 10/02/20 12:35 Results Urine Culture Sta t Lab 10/04/20 15:16 Received Labs from last 24 hours 10/06/20 10/06/20 04:39 04:39 WBC 8.7 RBC 4.31 Hgb 12.9 Hct 40.5 L MCV 94.0 MCH 29.9 MCHC 31.9 RDW 12.4 Plt Count 382 MPV 9.6 Neut % (Auto) 62.8 Lymph % (Auto) 23.7 Irion % (Auto) 7.3 Eos % (Auto) 5.2 Baso % (Auto) 0.7 Neut # (Auto) 5.47 Lymph # (Auto) 2.1 Irion # (Auto) 0.6 Eos # (Auto) 0.5 Baso # (Auto) 0.1 Nucleated RBC % (a uto) 0 Nucleated RBCs # 0.0 Sodium 143 Potassium 3.7 Chloride 103 Carbon Dioxide 30 H Anion Gap 13.7 BUN 24 H Creatinine 1.2 GFR Calculation 62.9 L Glucose 119 H Calculated Osmolal ity 301 H Calcium 9.0 Magnesium 2.1 Vitals: Last Vital Signs Temp 98.7 F 10/06/20 07:27 Pulse 85 10/06/20 07:27 Resp 18 10/06/20 07:27 BP 132/85 10/06/20 07:27 Pulse Ox 90 10/06/20 04:00 Discharge Plan Discharge Patient Disposition: Home Condition: Stable Prescriptions: New furosemide 40 mg Tablet 40 mg PO BID Qty: 60 RF: 0 aspirin 81 mg Tablet,Delayed Release (Dr/Ec) 81 mg PO DAILY Qty: 30 RF: 0 lisinopril 5 mg Tablet 5 mg PO DAILY Qty: 30 RF: 0 metoprolol tartrate 25 mg Tablet 25 mg PO BID Qty: 60 RF: 0 Eliquis 5 mg Tablet 5 mg PO BID Qty: 60 RF: 0 potassium chloride 10 mEq tablet extended release 20 meq PO DAILY Qty: 60 RF: 0 azithromycin 500 mg tablet 500 mg PO DAILY 5 Days Qty: 5 RF: 0 Continued multivitamin [Multiple Vitamins] Tablet 1 tab PO DAILY RF: 0 elderberry fruit-honey 0.7-3 gram/7.5 mL Liquid See Rx Instructions .ROUTE .COMPLEX RF: 0 turmeric 400 mg Capsule 400 mg PO DAILY RF: 0 Vitamin D3 1 tab PO DAILY RF: 0 Discharge Orders: Discharge Order (Routine); Ordered 10/06/20 Ordered By: Cari Shi Referrals: Seun Rinaldi M.D [Physician] - 1 month (Please call patient at home with an appointment in [address] Kohli.Faxed information to clinic.) Margaret Osuna FNP [Nurse Practitioner] - 1 week (Post cath follow up) Angie Orta FNP [Referring] - 4-7 days (Post hospital discharge follow up) Discharge Diet: Cardiac Discharge Activity: Limit activity as instructed Discharge Attestations Time Spent in Discharge Care*: greater than 30 min Specific Discharge Activities: Specific discharge activities: educating patient, discussing with pcp/other providers, discussing with top case assembler/social workers/dc planners, documenting/other paperwork and evaluating patient/reviewing data Status at Discharge: Cognitive status at discharge: cognitively intact, Behavioral status at discharge: cooperative, Overall status at discharge: patient is progressing back to baseline Quality Metrics Clinical Quality Measures During this hospital stay, did patient experience: None Coding Level of Care Code Acute Hopper Filler for [facility] Fwd Exam Comprehensive Diagnoses Atrial fibrillation I48.20 Atrial fibrillation type: unspecified chronic Hypertension I10 Hypertension type: essential hypertension HFrEF (heart failure with reduced ejection fraction) I50.20 NSVT (nonsustained ventricular tachycardia) I47.2
--- NOTE | 2020-10-06 10:00 | PC.NURSE ---
Zoll life vest EST is at noon notified Pt and .
[2020-10-06] MEDS: FUROsemide 40 mg Tablet PO (10:27)
[2020-10-06] MEDS: lisinopril 5 mg Tablet PO (10:27)
--- NOTE | 2020-10-06 10:30 | PC.NURSE ---
Called [facility] on pt's request for meds to bed. Darlin montague faxed to them.
--- NOTE | 2020-10-06 12:27 | PC.NURSE ---
lIFE VEST rREP IN ROOM WITH PT AND AT BEDSIDE FOR EDUCATIONAL PURPOSES ON HOW TO USE THE DEVICE.
--- NOTE | 2020-10-06 12:28 | PC.NURSE ---
PHARMACY BROUGHT THE NEW RX MEDS TO BED.
--- NOTE | 2020-10-06 13:53 | PC.NURSE ---
Discharge to home Instructed pt on his follow-up appointments as scheduled. Educated pt and regarding new meds actions, dosing, timing and possible side effects. Chf stoplight and home care post angiogram instructed to pt and . Ushered via wheelchair.
== END 2020-10-06 13:58 | disposition home or self-care (01) | DRG 286 ==
LOC: ER 15:35 → MEDSURG 15:50 → CSU 10-05 04:30
PROVIDERS: Emergency Medicine; Internal Medicine; Student in an Organized Health Care Education/Training Program; Admitting Provider Hospitalist; Visit Provider Family Medicine
PROC: 4A023N8 Measurement of Cardiac Sampling and Pressure, Bilateral, Percutaneous Approach (ICD-10-PCS; principal; 2020-10-05 12:00)
DX: I11.0 Hypertensive heart disease with heart failure (principal); J96.01 Acute respiratory failure with hypoxia; I48.20 Chronic atrial fibrillation, unspecified; I47.2 Ventricular tachycardia; I50.23 Acute on chronic systolic (congestive) heart failure; I25.10 Atherosclerotic heart disease of native coronary artery without angina pectoris; Z96.653 Presence of artificial knee joint, bilateral; Z87.891 Personal history of nicotine dependence; F10.21 Alcohol dependence, in remission; I42.9 Cardiomyopathy, unspecified; G47.33 Obstructive sleep apnea (adult) (pediatric)
CPT/HCPCS: 12345; 36415; 71045; 71275; 80048; 80053; 80061; 81001; 83735; 83880; 84145; 84443; 84484; 85025; 87040; 87086; 87426; 93005; 93460; 96372; 96375; 99284; C1751; C1760; C1769; C1887; C1894; J0456; J0696; J1644; J1650; J1940; J1956; J2250; J3010; J3490; J7050; Q9967

== ENCOUNTER 2020-10-12 11:15 | Outpatient (CLI) | payer OTHER, SELFPAY | END 2020-10-12 11:16 | disposition home or self-care (01) | LOC: LAB 08-21 14:32 | PROVIDERS: PCP Family Medicine; Visit Provider Nurse Practitioner Family | DX: I50.20 Unspecified systolic (congestive) heart failure (principal) | CPT/HCPCS: 80048 ==

== ENCOUNTER 2020-10-24 14:30 | Outpatient (CLI) | payer OTHER, SELFPAY ==
--- NOTE | 2020-10-24 15:00 | USCV_ITS ---
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 Blood flow is noted into this area from the common femoral artery Conclusions Features suggestive of pseudoaneurysm, measuring 3.97 x 2.92 cm in diameter, communicating with the common femoral artery. The aneurysm neck measured 0.[address] Phyllis Grayson MD [facility] (Electronically Signed) Final Date: 26 October 2020 19:30 S
--- NOTE | 2020-10-24 16:09 | CTR_ITS ---
PROCEDURE INFORMATION: Exam: CTA Angiogram of the Abdominal Aorta and Bilateral Lower Extremities (Run-off) With IV Contrast Exam date and time: 10/24/2020 4:09 PM Age: 55 years old Clinical indication: Abdominal pain; Localized; Other: Left; Prior surgery; Surgery type: Bilat knee; Patient HX: Please call Dr deras with results; Additional info: T81.084w - complication of other artery following a procedure, not elsewhere classified, initial encounter TECHNIQUE: Imaging protocol: CT angiogram of the abdominal aorta, pelvis and bilateral lower extremities with IV iodinated contrast. 3D rendering (Not supervised by radiologist): MIP and/or 3D reconstructed images were created by the technologist. Radiation optimization: All CT scans at this facility use at least one of these dose optimization techniques: automated exposure control; mA and/or kV adjustment per patient size (includes targeted exams where dose is matched to clinical indication); or iterative reconstruction. Contrast material: OMNI 350; Contrast volume: 95 ml; Contrast route: INTRAVENOUS (IV); COMPARISON: CT angio chest PE protcl [id number] 10/02/2020 1:58 PM RADIATION DOSE METRICS: Total DLP (mGy-cm): 1681.31 FINDINGS: Aorta: The abdominal aorta is nonaneurysmal. Moderate arterial sclerotic disease. No intimal flap or dissection. No visible significant intramural thrombus. 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 Mild poststenotic dilatation. No intimal flap. Length of the stenosis approximately 13 mm. Renal arteries: Approximately 60% stenosis of the ostium of the left renal artery. No occlusion. Hard and soft atheromatous plaque. Length of the stenosis approximately 12 mm. Right iliac arteries: No occlusion or significant stenosis. Right femoral/popliteal arteries: No occlusion or significant stenosis. Right infrapopliteal arteries: No occlusion or significant stenosis. Left iliac arteries: No occlusion or significant stenosis. 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 Dimensions of the pseudoaneurysm, containing contrast, measures 31 mm x 21 mm x 24 mm. Surrounding soft tissue swelling and edema. The pseudoaneurysm neck connects with the proximal left superficial femoral artery. No visible evidence of occlusion or stenosis. Portions of the popliteal artery not visible due to metal artifact. Left infrapopliteal arteries: No occlusion or significant stenosis. Three-vessel runoff to the ankle. Patent dorsal pedal arteries. Other veins: Varicose veins. Lungs: Limited assessment of the lung bases fails to reveal evidence for active cardiopulmonary process. Mild cardiomegaly. Left ventricular prominence. No visible pericardial effusion. Liver: Mild diffuse fatty infiltration of the liver. No visible hepatic mass or cystic structure. Gallbladder and bile ducts: Unremarkable. No calcified stones. No ductal dilation. Pancreas: Unremarkable. No mass. No ductal dilation. Spleen: Normal. No splenomegaly. Adrenals: Normal. No mass. Kidneys and ureters: Normal. No mass. No visible nephrolithiasis. No hydronephrosis. Stomach and bowel: Diffuse diverticulosis coli without evidence for acute diverticulitis. Nonobstructive bowel pattern. No visible adynamic or reactive ileus. Appendix: The appendix is visualized and appears noninflamed. Bladder: Unremarkable. No mass. Reproductive: Mild prostate hypertrophy. Intraperitoneal space: No visible intraperitoneal ascites. No visible evidence of mesenteric lymphadenitis or active mesenteritis/panniculitis. Lymph nodes: No current visible evidence of active mesenteric or retroperitoneal lymphadenopathy. Bones/joints: Degenerative disease and degenerative disc disease of the spine with spondylosis deformans and facet arthrosis. Dextroscoliosis lumbar spine. No visible acute osseous abnormality. Soft tissues: Bilateral small inguinal hernias containing fat only. Other findings: Bilateral total knee prostheses. CT/CT angio abd aorta runof [id number] IMPRESSION: 1. 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 Dimensions of the pseudoaneurysm, containing contrast, measures 31 mm x 21 mm x 24 mm. Surrounding soft tissue swelling and edema. The pseudoaneurysm neck connects with the proximal left superficial femoral artery. 2. 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 3. Approximately 60% stenosis of the ostium of the left renal artery. 4. Other nonurgent, nonemergent, chronic, and age related findings as detailed in text above. Radiation Dose CTDIVOL = (mGy): DLP = 1681.31 (mGy-cm)
[2020-10-24] MEDS: iohexol 350 mg/mL 100 mL Btl IV (16:43)
== END 2020-10-24 14:31 | disposition home or self-care (01) ==
PROVIDERS: Visit Provider Internal Medicine
DX: T81.89XA Other complications of procedures, not elsewhere classified, initial encounter (principal); R60.9 Edema, unspecified; T81.718A Complication of other artery following a procedure, not elsewhere classified, initial encounter; X58.XXXA Exposure to other specified factors, initial encounter; I72.4 Aneurysm of artery of lower extremity
CPT/HCPCS: 75635; 93926

== ENCOUNTER 2020-10-31 16:11 | Outpatient (CLI) | payer OTHER, SELFPAY ==
--- NOTE | 2020-10-31 16:14 | USCV_ITS ---
Zach Austin Age: 55 Gender: M : 1965 Exam Date: 10/31/2020 16:04 Ordering Phys: Seun Rinaldi M.D ([email or web address]) Technologist: Alix Mario Exam Location: [facility] [place] Indication: POST CATH COMPLICATION Findings Hypoechoic area measuring 3.7 x 3.7 cm in the left groin There was no communication with the adjacent common femoral artery Conclusions Features suggesting hematoma measuring 3.7 x 3.7 cm with no evidence of pseudoaneurysm Dr Phyllis Grayson MD [facility] (Electronically Signed) Final Date: 31 October 2020 17:32 S
== END 2020-10-31 16:12 | disposition home or self-care (01) ==
LOC: US 16:12
PROVIDERS: PCP Family Medicine; Visit Provider Internal Medicine
DX: T85.9XXA Unspecified complication of internal prosthetic device, implant and graft, initial encounter (principal); X58.XXXA Exposure to other specified factors, initial encounter
CPT/HCPCS: 93926

== ENCOUNTER 2021-04-21 09:55 | Inpatient (IN) | payer OTHER, SELFPAY ==
[2021-04-21] VITALS (116 sets, daily range): BP systolic 55–174; BP diastolic 38–143; PULSE 9–160; RESP 4–36; TEMP 36.4–38; O2SAT 90–100; BMI 27.2
[2021-04-21] MEDS: succinylcholine 20 mg/mL SDV 10mL 100 MG IVP (10:04)
[2021-04-21] MEDS: amiodarone 50 mg/mL SDV 3 mL 150 MG IVP (10:05)
--- NOTE | 2021-04-21 10:09 | W.ED.CHESTPA ---
HPI - Chest Pain General: Chief Complaint: Cardiac Arrest/CPR Stated Complaint: POST CPR Time Seen by Provider: 04/21/21 10:10 Source: patient, family, EMS, RN notes reviewed and old records reviewed Mode of arrival: EMS Limitations: altered mental status History of Present Illness: HPI narrative: This patient presents to the emergency department via EMS status post code. History is that the patient was taking a shower and had a syncopal collapse episode. Patient does have a history of cardiac disease and cardiomyopathy. Followed by Dr. Rinaldi cardiology. Patient is supposed to be wearing a LifeVest shocking with abnormal with rhythm. Apparently the patient had it off to take a shower. Patient was found with by patient's son after he had fell patient's spouse and neighbors pulled the patient out of the bathtub began CPR. EMS arrived and stated the patient was in a V. tach V. fib rhythm and subsequently delivered 1 shock at 100 J. Patient then went bradycardic and then into an asystole rhythm. CPR continued for 1 cycle plus epinephrine. After 1 cycle the patient was in a atrial fibrillation rhythm with RVR with a heart rate of 140s. Patient was still unresponsive and a Chad airway was established. Upon arrival quickly did establish bilateral IVs due to the EMS only had an IO in the right lower leg. Patient's Chad airway was replaced with an 8.0 ET tube 26 at the lip. Notified cardiology they were agreeable for an amiodarone drip. Will do medical evaluation treat as needed. 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 Onset (ago): minute(s) Prior episodes: No Onset: during rest Review of Systems General: Reports: ROS unobtainable due to endotracheal tube, ROS unobtainable due to medical condition and ROS unobtainable due to mental status [facility] PFSH: Medical History Atrial fibrillation Chest pain CHF (congestive heart failure) Community acquired pneumonia Coronary artery disease HFrEF (heart failure with reduced ejection fraction) Hypertension NSVT (nonsustained ventricular tachycardia) Obstructive sleep apnea -severe per sleep study on 03/2019 Surgical History Status post bilateral knee replacements Family History Grandmother Hypertension Social History Smoking and tobacco status: former smoker Quit status (tobacco): has quit using tobacco Alcohol intake: former Year of sobriety/quit date alcohol: 1 month ago Former alcohol use details: Half a pint of vodka, beer use daily Physical Exam Const: GENERAL APPEARANCE: patient mechanically ventilated ORIENTATION/CONSCIOUSNESS: Yes Other orientation findings OTHER: Patient unresponsive HENMT: COMMON NORMALS: normocephalic, atraumatic, external ears normal, EAC's normal, TM's normal bilaterally, Normal external nose present and Normal nasal mucous membranes and turbinates present HEAD & SCALP: normocephalic and atraumatic NOSE: Normal external nose present and Normal nasal mucous membranes and turbinates present EXTERNAL EAR: Yes external ears normal EXTERNAL AUDITORY CANAL: EAC's normal TYMPANIC MEMBRANE: TM's normal bilaterally Neck/C-Spine: COMMON NORMALS: full ROM, no lymphadenopathy, supple, no meningeal signs, Thyroid normal and No carotid bruits THYROID: Thyroid normal Chest: CHEST: Yes Symmetrical chest wall rise Resp: COMMON NORMALS: normal respiratory effort, No retractions, No use of accessory muscles, clear to auscultation bilaterally and percussion normal AUSCULTATION: clear to auscultation bilaterally PERCUSSION: percussion normal Cardio: COMMON NORMALS: S1 normal heart sound present, S2 normal heart sound present, No gallops present (Cardio), No clicks present (Cardio), No murmurs present (Cardio) and No rub (Cardio) PALPATION: abnormal PMI RATE: tachycardic RHYTHM: abnormal rhythm HEART SOUNDS: S1 normal heart sound present and S2 normal heart sound present PERIPHERAL PULSES: radial pulses present and femoral pulses present GI: COMMON NORMALS: Normal to inspection, nondistended, normoactive bowel sounds present, Soft to palpation, non-tender, No hepatosplenomegaly present, no masses and no bruits PALPATION: Yes Soft to palpation and Yes No hepatosplenomegaly present : COMMON NORMALS: Yes no CVA tenderness BLADDER/KIDNEY EXAM: Yes no CVA tenderness Back/Pelvis: COMMON NORMALS: no CVA tenderness, thoracic and lumbar spine normal to inspection, no thoracic nor lumbar tenderness, thoraco-lumbar ROM normal and straight leg raise negative bilaterally Extremity: COMMON NORMALS: normal to inspection, full ROM, capillary refill normal, no joint enlargement, no clubbing, cyanosis or edema, no calf tenderness and no pedal edema Neuro: MENINGEAL SIGNS: Yes no meningeal signs CRANIAL NERVES: Yes other (Patient is unresponsive. Due to medical condition) Procedures Central Line Placement Left Femoral: Time Out Performed: Yes Patient Placed on Monitor/Pulse Ox: Yes MD Prep: mask, gown and gloves Central Line Prep: Chlorhexidine scrub Local Anesthetic: lidocaine 2% Amount of anesthesia used (mL): 10 Ultrasound Used for Placement: Yes Central Line Lumen Inserted: triple Post Procedure: sutured in place, good blood return, all ports aspirated, flushed, capped and sterile dressing applied Post Procedure X-Ray: tip of catheter in good position Patient Tolerated Procedure: well and no complications Complications: none Intubation Time out performed: Yes sedative: Etomidate paralytic: Rocuronium Laryngoscope: Katie ET Tube Size: 8 ET Tube Uncuffed: No Tube Secured Depth (cm): 26 Tube Secured Location: teeth Tube Placement Confirmation: visualized tube passing through cords, equal breath sounds bilaterally, no breath sounds over epigastrium and confirmation by capnometry Patient Tolerated Procedure: well Intubation Complications: none Course Reevaluation(s): Reevaluation #1: Discussed at length with patient's patient was in the bathtub and had a syncopal episode patient supposed to wear a LifeVest and took it off to take a shower. CPR was started by patient's and neighbors. Time: 10:30 Reevaluation #2: Patient still A. fib with RVR heart rate is running from 122 up to 160s. Patient did receive Cardizem to slow her the rate down and is getting amiodarone drip at this time. Patient is intubated and does have a central line triple-lumen cath in the left femoral area. I did discuss at length with Dr. Mcdonnell who is going to admit this patient to the ICU. He will consult Dr Rinaldi cardiology. Patient will be started on hypothermia protocol. Time: 11:12 Reevaluation #3: Patient given Cardizem bolus and then started on amiodarone drip heart rate is now 105 with A. fib with RVR better controlled rate. Blood pressure is 155/100. Patient be transported to the ICU after CT scan of the head. Hypothermia protocol will be started. Time: 11:19 Consultations: Consultation #1: I did discuss at length with Dr. Gentry israel. He will come and see patient in the ER for rule up he agrees with the amiodarone drip at this time. Time: 10:09 Consultation #2: I discussed with Dr. Floyd he will admit the patient to the ICU. Time: 11:13 Vital Signs: Vital signs: Vital Signs Temperature 97.5 F L 04/21/21 09:57 Pulse Rate 133 H 04/21/21 09:57 Respiratory Rate 14 04/21/21 10:14 Blood Pressure 125/93 04/21/21 09:57 Pulse Oximetry 99 04/21/21 09:57 MDM - Chest Pain MDM Narrative: Medical decision making narrative: This patient presents to the emergency department via EMS status post code. History is that the patient was taking a shower and had a syncopal collapse episode. Patient does have a history of cardiac disease and cardiomyopathy. Followed by Dr. Gentry israel. Patient is supposed to be wearing a LifeVest shocking with abnormal with rhythm. Apparently the patient had it off to take a shower. Patient was found with by patient's son after he had fell patient's spouse and neighbors pulled the patient out of the bathtub began CPR. EMS arrived and stated the patient was in a V. tach V. fib rhythm and subsequently delivered 1 shock at 100 J. Patient then went bradycardic and then into an asystole rhythm. CPR continued for 1 cycle plus epinephrine. After 1 cycle the patient was in a atrial fibrillation rhythm with RVR with a heart rate of 140s. Patient was still unresponsive and a Chad airway was established. Upon arrival quickly did establish bilateral IVs due to the EMS only had an IO in the right lower leg. Patient's Chad airway was replaced with an 8.0 ET tube 26 at the lip. Notified cardiology they were agreeable for an amiodarone drip patient will be admitted to the ICU with hypothermia protocol. Dr. Mcdonnell and Gentry will see patient to continue. Dr. Mcdonnell will follow up on all outstanding orders. Differential Diagnosis: Cardiac arrest differential diagnosis: Likely acute massive pulmonary embolism, acute respiratory failure, acute myocardial infarction, cardiac arrest and sudden cardiac Medical Records: Attestation: I reviewed the patient's medical records. Lab Data: Attestation: I reviewed the patient's lab results. Labs: Lab Results 04/21/21 04/21/21 04/21/21 Range/Units 10:05 10:05 10:05 WBC 13.1 H (4.0-10.0) 10^3/ uL RBC 5.57 H (4.1-5.3) 10^6/u L Hgb 17.3 H (11.7-16.6) g/dL Hct 54.9 H (42.0-52.0) % MCV 98.6 H (80-94) fL MCH 31.1 (28.0-34.0) pg MCHC 31.5 (30.0-36.0) g/dL RDW 12.3 (12.1-15.1) % Plt Count 286 (130-400) 10^3/c mm MPV 10.1 (7.4-10.4) fL Neut % (Auto) 52.9 % Lymph % (Auto) 32.6 % Huntington % (Auto) 6.5 % Eos % (Auto) 3.9 % Baso % (Auto) 1.1 % Neut # (Auto) 6.94 (1.8-7.7) 10^3/u L Lymph # (Auto) 4.3 (0.8-4.8) 10^3/u L Huntington # (Auto) 0.9 (0.2-0.9) 10^3/u L Eos # (Auto) 0.5 (0.0-0.8) 10^3/u L Baso # (Auto) 0.2 H (0.0-0.1) 10^3/u L Nucleated RBC % (a uto) 0 % Nucleated RBCs # 0.0 /100WBC PT 17.90 H (12.1-14.9) SECO NDS INR 1.44 H (0.8-1.2) APTT 31.1 (23.9-36.7) SECO NDS D-Dimer 1.14 H (0-0.59) ug/mIFE U Specimen Type Sample Site ABG pH (7.35-7.45) ABG pCO2 (35-45) mmHg ABG pO2 (80.0-100.0) mmH g ABG HCO3 (22-26) mmol/L ABG O2 Saturation ABG Base Excess (-2.0-2.0) mmol/ L [facility] Test A-a O2 Gradient (5-10) mmHg Hematocrit (42-52) % Hgb O2 Saturation (95-100) % Carboxyhemoglobin (0.4-20.1) %THgb Methemoglobin (0.4-1.5) % Total Hemoglobin (14-18) g/dL Ionized Calcium (1.1-1.4) mmol/L O2 Delivery Device FiO2 % Tidal Volume PEEP cmH20 Delivery Technician ID Sodium 137 (136-145) mmol/L Potassium 4.6 (3.5-5.1) mmol/L Chloride 97 L (98-107) mmol/L Carbon Dioxide 15 L (22-29) mmol/L Anion Gap 29.6 H (5-19) BUN 19 (6-20) mg/dL Creatinine 1.4 H (0.7-1.2) mg/dL GFR Calculation 52.4 L (90-130) mL/min Glucose 281 H (65-115) mg/dL Calculated Osmolal ity 296 H (285-295) mOsm/k g Calcium 8.8 (8.5-10.5) mg/dL Total Bilirubin 0.9 (0.15-1.2) mg/dL AST 43 H (0-40) U/L ALT 48 H (0-41) U/L Alkaline Phosphata se 113 (40-130) IU/L Creatine Kinase 74 (39-308) U/L Troponin T Baselin e (0-15) ng/L NT-Pro-B Natriuret Pep 60068 H (0-125) pg/mL Total Protein 6.7 (6.6-8.7) g/dL Albumin 4.1 (3.5-5.2) g/dL Globulin 2.6 (1.3-4.6) g/dL 04/21/21 04/21/21 Range/Units 10:05 10:48 WBC (4.0-10.0) 10^3/ uL RBC (4.1-5.3) 10^6/u L Hgb (11.7-16.6) g/dL Hct (42.0-52.0) % MCV (80-94) fL MCH (28.0-34.0) pg MCHC (30.0-36.0) g/dL RDW (12.1-15.1) % Plt Count (130-400) 10^3/c mm MPV (7.4-10.4) fL Neut % (Auto) % Lymph % (Auto) % Huntington % (Auto) % Eos % (Auto) % Baso % (Auto) % Neut # (Auto) (1.8-7.7) 10^3/u L Lymph # (Auto) (0.8-4.8) 10^3/u L Huntington # (Auto) (0.2-0.9) 10^3/u L Eos # (Auto) (0.0-0.8) 10^3/u L Baso # (Auto) (0.0-0.1) 10^3/u L Nucleated RBC % (a uto) % Nucleated RBCs # /100WBC PT (12.1-14.9) SECO NDS INR (0.8-1.2) APTT (23.9-36.7) SECO NDS D-Dimer (0-0.59) ug/mIFE U Specimen Type Arterial Sample Site Brachial, right ABG pH 7.19 L (7.35-7.45) ABG pCO2 49.8 H (35-45) mmHg ABG pO2 122.0 H (80.0-100.0) mmH g ABG HCO3 19.1 L (22-26) mmol/L ABG O2 Saturation 97.4 ABG Base Excess -9.5 L (-2.0-2.0) mmol/ L [facility] Test Pos A-a O2 Gradient 69.7 H (5-10) mmHg Hematocrit 57.5 H (42-52) % Hgb O2 Saturation 96.3 (95-100) % Carboxyhemoglobin 0.5 (0.4-20.1) %THgb Methemoglobin 0.7 (0.4-1.5) % Total Hemoglobin 18.8 H (14-18) g/dL Ionized Calcium 1.2 (1.1-1.4) mmol/L O2 Delivery Device Vent FiO2 100.0 % Tidal Volume 0.50 PEEP 5.0 cmH20 Delivery Technician ID Monro Sodium 137.0 (136-145) mmol/L Potassium 5.5 H (3.5-5.1) mmol/L Chloride (98-107) mmol/L Carbon Dioxide (22-29) mmol/L Anion Gap (5-19) BUN (6-20) mg/dL Creatinine (0.7-1.2) mg/dL GFR Calculation (90-130) mL/min Glucose 231.0 H (65-115) mg/dL Calculated Osmolal ity (285-295) mOsm/k g Calcium (8.5-10.5) mg/dL Total Bilirubin (0.15-1.2) mg/dL AST (0-40) U/L ALT (0-41) U/L Alkaline Phosphata se (40-130) IU/L Creatine Kinase (39-308) U/L Troponin T Baselin e 67 H (0-15) ng/L NT-Pro-B Natriuret Pep (0-125) pg/mL Total Protein (6.6-8.7) g/dL Albumin (3.5-5.2) g/dL Globulin (1.3-4.6) g/dL Imaging Data^: CXR: Attestation: I personally reviewed and interpreted this imaging study as follows: My impression: ET tube in appropriate position above the melisa. Acute cardiomyopathy EKG Data^: EKG 1: Attestation: I personally reviewed and interpreted this EKG as follows: EKG interpretation date: 04/21/21 EKG interpretation time: 10:13 Prior EKG tracings: available for review Interpretation: Atrial fibrillation with RVR heart rate 113. Interventricular conduction delay this is an abnormal EKG status post cold Critical Care Time Critical Care Time: Critical Care Time: Yes Total Critical Care Time: 120 Attestation: Patient status post code quickly intubated and has a central line placed by myself and staff in the emergency department. Patient had significant bedside evaluation and treatment extended history from EMS and family. Discussed at length with cardiology. Evaluated patient and response to treatment. Patient mated to the ICU. Discharge Plan Discharge Patient Disposition: Admitted As Inpatient Clinical Impression: Cardiac arrest, Non-ischemic cardiomyopathy, Atrial fibrillation, HFrEF (heart failure with reduced ejection fraction) Condition: Stable Coding Level of Care Code ED Keyboard Action Assembler for Chg Fwd Exam Comprehensive
[2021-04-21] MEDS: sodium chloride 0.9% 1,000 ML 999 ML (10:10)
--- NOTE | 2021-04-21 10:10 | ECG_ITS ---
[facility] Test Date: 2021-04-21 Pat Name: Zach Austin Department: Room: Gender: Male Continuing Education Specialist: : 1965 Requested By: Jackson Mauro Order Number: [id number] Anna Marie MD: Seun Rinaldi M.D. Measurements Intervals Emerson Rate: 113 P: MT: QRS: -37 QRSD: 137 T: 56 QT: 359 QTc: 493 Interpretive Statements ATRIAL FIBRILLATION WITH RAPID VENTRICULAR RESPONSE INDETERMINATE AXIS INTRAVENTRICULAR CONDUCTION DELAY [130+ ms QRS DURATION] INTERPRETATION BASED ON A DEFAULT AGE OF 40 YEARS Compared to ECG 10/02/2020 13:51:02 Indeterminate axis now present Intraventricular conduction delay now present Incomplete right bundle-branch block no longer present Atrial abnormality no longer present Myocardial infarct finding no longer present Electronically Signed On 04-21-2021 15:32:59 CDT by Seun Rinaldi M.D. [id number] f
--- NOTE | 2021-04-21 10:10 | XRR_ITS ---
PROCEDURE INFORMATION: Exam: XR Chest Exam date and time: 04/21/2021 10:13 AM Age: 56 years old Clinical indication: Device placement; Other: Et and ng placement; Additional info: Cardiac arrest TECHNIQUE: Imaging protocol: XR of the chest. Views: 1 view. COMPARISON: CR XR chest 1V portable [id number] 10/02/2020 11:45 AM FINDINGS: Tubes, catheters and devices: ET tube tip over the distal trachea, 5 mm proximal to the melisa. Enteric tube tip is beyond the proximal portion of the stomach and is not seen because it is below the inferior margin of the film. Lungs: Significant improvement in previously noted significant bilateral pulmonary opacities with mild residual bilateral perihilar opacities most consistent with bronchopneumonia. Pleural spaces: Unremarkable. No pleural effusion. No pneumothorax. Heart/Mediastinum: Unremarkable. No cardiomegaly. Bones/joints: Unremarkable. XR/XR chest 1V portable [id number] IMPRESSION: 1. ET tube tip over the distal trachea, 5 mm proximal to the melisa. 2. Enteric tube tip is beyond the proximal portion of the stomach and is not seen because it is below the inferior margin of the film. 3. Significant improvement in previously noted significant bilateral pulmonary opacities with mild residual bilateral perihilar opacities most consistent with bronchopneumonia.
[2021-04-21] MEDS: vecuronium 10 mg SDV IVP (10:12)
--- NOTE | 2021-04-21 10:30 | PM.CONSULT ---
Providers/Reason For Consult Consulting Physican/Specialty*: Seun Rinaldi MD/ Cardiology Reason for Consult*: VT arrest Requesting Physcian: Dr Mauro Primary Care Provider: Barbi Mendenhall MD History of Present Illness History of Present Illness Zach Austin is a 56 year old male with past medical history of atrial fibrillation that was recently diagnosed, heart failure with reduced ejection fraction, hypertension who I saw in the hospital last year. Coronary angiography was performed that showed nonobstructive coronary artery disease and nonischemic cardiomyopathy. He was discharged home on ACEi and beta anusha. He presented to the office a couple of weeks later with a pseudoaneurysm of the femoral artery. We held anticoagulation and pseudoaneurysm resolved. Patient was supposed to follow-up with cardiology office in 3-month for a repeat echo and to assess the need for defibrillator. Patient did not follow-up. Today he was in the shower and the family heard him falling. EMS was called. On arrival he was in ventricular tachycardia. He was cardioverted. Subsequently he went into asystole. Postarrest EKG does not show ST elevations. He has a recent cath about 6 months ago that did not reveal any significant coronary artery disease. Review of Systems General: Reports: ROS unobtainable due to endotracheal tube Meds/Allergies Home Medications and Allergies Home Medications Medication Instructions Recorded Confirmed Last Taken Type multivitamin [Multiple Vitamins] 1 tab PO DAILY 09/19/20 04/21/21 10/02/20 History Vitamin D3 1 tab PO DAILY 10/02/20 04/21/21 10/02/20 History turmeric 400 mg PO DAILY 10/02/20 04/21/21 10/02/20 History apixaban [Eliquis] 5 mg PO BID #60 tab 10/06/20 04/21/21 04/20/21 Rx aspirin 81 mg PO DAILY #30 tab 10/06/20 04/21/21 Unknown Rx furosemide 40 mg PO BID #60 tab 10/06/20 04/21/21 04/20/21 Rx lisinopril 5 mg PO DAILY #30 tab 10/06/20 04/21/21 04/20/21 Rx metoprolol tartrate 25 mg PO BID #60 tab 10/06/20 04/21/21 04/20/21 Rx potassium chloride 20 meq PO DAILY #60 tab 10/06/20 04/21/21 04/20/21 Rx elderberry fruit and flower 1 cap PO DAILY 04/21/21 04/21/21 Unknown History Allergies Allergy/AdvReac Type Severity Reaction Status Date / Time No Known Allergies Allergy Verified 10/12/20 10:21 PFSH Acute PFSH: Medical History Atrial fibrillation Chest pain CHF (congestive heart failure) Community acquired pneumonia Coronary artery disease HFrEF (heart failure with reduced ejection fraction) Hypertension NSVT (nonsustained ventricular tachycardia) Obstructive sleep apnea -severe per sleep study on 03/2019 Surgical History Status post bilateral knee replacements Family History Grandmother Hypertension Social History Smoking and tobacco status: former smoker Quit status (tobacco): has quit using tobacco Alcohol intake: former Year of sobriety/quit date alcohol: 1 month ago Former alcohol use details: Half a pint of vodka, beer use daily Vitals/I&O/Wt Last Vital Signs Resp 14 04/21/21 10:14 Physical Exam Narrative: EXAM NARRATIVE: GENERAL: Patient is intubated HEENT: No cyanosis. No icterus. No pallor. [] HEART: Tachycardia, irregularly irregular LUNGS: Difficult to hear because of intubation ABDOMEN: Soft CENTRAL NERVOUS SYSTEM: Grossly nonfocal. [] EXTREMITIES: Lower extremities with 1+ edema bilaterally A&P Assessment and plan (1) Atrial fibrillation: Status: Acute Qualifiers: Atrial fibrillation type: unspecified chronic Qualified Code(s): I48.20 - Chronic atrial fibrillation, unspecified (2) HFrEF (heart failure with reduced ejection fraction): Status: Acute (3) Non-ischemic cardiomyopathy: Status: Acute (4) Cardiac arrest: Status: Acute Patient has a history of nonischemic cardiomyopathy. He did not follow-up with our cardiology office as he was supposed to get a repeat echocardiogram in 3 months for evaluation for need of ICD. His cardiac catheterization has recently did not reveal any significant coronary artery disease. His EKG is not demonstrating ST elevation [place]. Plan would be to stabilize patient with amiodarone gtt. Currently patient is in afib with RVR Obtain labs Repeat echocardiogram. If cardiac function is persistently low in the setting of VT arrest, he will need a defibrillator Patient can be admitted to ICU. Thank you for involving us with care of this patient. We will continue to follow. Please call with questions. Coding Level of Care Code Acute [facility] [place] for [facility] Fwd Diagnoses Atrial fibrillation I48.20 Atrial fibrillation type: unspecified chronic HFrEF (heart failure with reduced ejection fraction) I50.20 Non-ischemic cardiomyopathy I42.8 Cardiac arrest I46.9
[2021-04-21 10:32] LABS: Basophils # 0.2 10^3/uL (0.0-0.1); Basophils % 1.1 %; Eosinophils # 0.5 10^3/uL (0.0-0.8); Eosinophils % 3.9 %; Hematocrit 54.9 % (42.0-52.0); Hemoglobin 17.3 g/dL (11.7-16.6); Lymphocytes # 4.3 10^3/uL (0.8-4.8); Lymphocytes % 32.6 %; Mean Corpuscular HGB Conc 31.5 g/dL (30.0-36.0); Mean Corpuscular Hemoglobin 31.1 pg (28.0-34.0); Mean Corpuscular Volume 98.6 fL (80-94); Mean Platelet Volume 10.1 fL (7.4-10.4); Monocytes # 0.9 10^3/uL (0.2-0.9); Monocytes % 6.5 %; Neutrophils # 6.94 10^3/uL (1.8-7.7); Neutrophils % 52.9 %; Nucleated Red Blood Cells % 0 %; Platelet Count 286 10^3/cmm (130-400); Red Blood Count 5.57 10^6/uL (4.1-5.3); Red Cell Distribution Width 12.3 % (12.1-15.1); White Blood Count 13.1 10^3/uL (4.0-10.0)
[2021-04-21 10:49] LABS: INR 1.44 (0.8-1.2)
[2021-04-21 10:51] LABS: Partial Thromboplastin Time 31.1 SECONDS (23.9-36.7)
--- NOTE | 2021-04-21 10:52 | CTR_ITS ---
PROCEDURE INFORMATION: Exam: CT Head Without Contrast Exam date and time: 04/21/2021 11:00 AM Age: 56 years old Clinical indication: Injury or trauma; Fall; Blunt trauma (contusions or hematomas); Additional info: Headache TECHNIQUE: Imaging protocol: Computed tomography of the head without contrast. Axial, coronal and sagittal reformatted images were created and reviewed. Radiation optimization: All CT scans at this facility use at least one of these dose optimization techniques: automated exposure control; mA and/or kV adjustment per patient size (includes targeted exams where dose is matched to clinical indication); or iterative reconstruction. COMPARISON: No relevant prior studies available. RADIATION DOSE METRICS: Total DLP (mGy-cm): 989.69 FINDINGS: Brain: No CT evidence of acute intracranial hemorrhage or acute territorial infarction. No significant mass effect or midline shift. Basal cisterns patent. Cerebral ventricles: Normal in size and configuration. Bones/joints: No acute osseous abnormality. Paranasal sinuses: Mild ethmoid and maxillary sinus mucosal thickening. Mastoid air cells: Grossly unremarkable. Soft tissues: Grossly unremarkable. CT/CT head wo con* [id number] IMPRESSION: 1. No CT evidence of acute intracranial pathology. 2. Additional findings, as above. Radiation Dose CTDIVOL = (mGy): DLP = 989.69 (mGy-cm)
[2021-04-21 10:54] LABS: D Dimer 1.14 ug/mIFEU (0-0.59)
[2021-04-21 11:01] LABS: ABG PCO2 49.8 mmHg (35-45); ABG PH Result 7.19 (7.35-7.45); Alveolar-Arterial Oxygen Gradi 69.7 mmHg (5-10); Arterial Blood Gas Hematocrit 57.5 % (42-52); Base Excess ABG -9.5 mmol/L (-2.0-2.0); Blood Gas Allen Test Pos; Blood Gas Operator Identificat MONRO; Blood Gas Sample Site Brachial, right; Blood Gas Sample Type Arterial; Carboxyhemoglobin 0.5 %THgb (0.4-20.1); HCO3 ABG 19.1 mmol/L (22-26); HGB O2 Sat 96.3 % (95-100); Ionized Calcium Level - ABG 1.2 mmol/L (1.1-1.4); Methemoglobin 0.7 % (0.4-1.5); Oxygen Device VENT; Oxygen Saturation ABG 97.4; Potassium Level - ABG 5.5 mmol/L (3.5-5.0); Total Hemoglobin 18.8 g/dL (14-18)
[2021-04-21 11:08] LABS: Alanine Aminotransferase 48 U/L (0-41); Albumin Level 4.1 g/dL (3.5-5.2); Alkaline Phosphatase 113 IU/L (40-130); Anion Gap 29.6 (5-19); Aspartate Amino Transferase 43 U/L (0-40); Blood Urea Nitrogen 19 mg/dL (6-20); Calcium 8.8 mg/dL (8.5-10.5); Carbon Dioxide 15 mmol/L (22-29); Chloride 97 mmol/L (98-107); Creatine Phosphokinase 74 U/L (39-308); Globulin 2.6 g/dL (1.3-4.6); Glomerular Filtration Rate 52.4 mL/min (90-130); Glucose 281 mg/dL (65-115); NT Pro B Type Natriuretic Pept 12633 pg/mL (0-125); Osmolality Calculated 296 mOsm/kg (285-295); Potassium 4.6 mmol/L (3.5-5.1); Sodium 137 mmol/L (136-145); Total Bilirubin 0.9 mg/dL (0.15-1.2); Total Protein 6.7 g/dL (6.6-8.7)
[2021-04-21 11:10] LABS: Troponin(5th) Baseline 67 ng/L (0-15)
[2021-04-21] MEDS: sodium bicarbonate 8.4% 1 mEq/mL 50mL Syr 50 MEQ IVP (11:11)
--- NOTE | 2021-04-21 11:12 | CTR_ITS ---
PROCEDURE INFORMATION: Exam: CTA Chest With Contrast Exam date and time: 04/21/2021 11:12 AM Age: 56 years old Clinical indication: Shortness of breath; Patient HX: PT fell this am. On vent; Additional info: SOB with elevated ddimer TECHNIQUE: Imaging protocol: Computed tomographic angiography of the chest with contrast. 3D rendering (Not supervised by radiologist): MIP and/or 3D reconstructed images were created by the technologist. Radiation optimization: All CT scans at this facility use at least one of these dose optimization techniques: automated exposure control; mA and/or kV adjustment per patient size (includes targeted exams where dose is matched to clinical indication); or iterative reconstruction. Contrast material: OMNI 350; Contrast volume: 87 ml; Contrast route: INTRAVENOUS (IV); COMPARISON: CT angio chest PE protcl [id number] 10/02/2020 1:58 PM RADIATION DOSE METRICS: Total DLP (mGy-cm): 518.73 FINDINGS: Tubes, catheters and devices: There is an endotracheal tube present with the tip between the clavicles and the melisa. There is an enteric tube extending down into the stomach. Pulmonary arteries: No sign of acute pulmonary embolism. Aorta: No thoracic aortic aneurysm. Veins: There is reflux of contrast into the hepatic veins and inferior vena cava. Lungs: There is bilateral lower lobe airspace disease with consolidation and air bronchogram formation. This can be due to pneumonia or aspiration, likely with an element of atelectasis as well. Minimal dependent airspace disease, likely dependent atelectasis, in the posterior aspect of both upper lobes. Prior pulmonary granulomatous disease. Pleural spaces: No pleural effusion or pneumothorax. Heart: The heart is enlarged. No pericardial effusion. There is coronary artery disease. Lymph nodes: Slightly prominent mediastinal lymph nodes, likely reactive in nature. Bones/joints: No acute osseous abnormality. Soft tissues: No acute soft tissue abnormality. CT/CT angio chest PE protcl [id number] IMPRESSION: 1. No sign of acute pulmonary embolism. 2. Bilateral airspace disease. Considerations include pneumonia, aspiration pneumonitis, and atelectasis. Radiation Dose CTDIVOL = (mGy): DLP = 518.73 (mGy-cm)
[2021-04-21 11:35] LABS: CKMB 3.6 ng/mL (0-10.4)
[2021-04-21] MEDS: sodium chloride 0.9% 1,000 ML 999 ML IV ×2 (11:35→11:39)
[2021-04-21] MEDS: heparin 5,000 unit/mL INJ 1 mL 4000 UNIT IVP (11:45)
[2021-04-21] MEDS: clopidogrel 300 mg Tablet PO (12:01)
[2021-04-21] MEDS: aspirin 325 mg Tablet PO (12:01)
--- NOTE | 2021-04-21 12:01 | P.HP_ITS ---
Providers/Chief Complaint Admitting Physician: Param Montague MD Primary Care Provider: Barbi Mendenhall MD Chief Complaint: POST CPR History of Present Illness Zach Austin is a 56 year old male a a past medical history of atrial fibrillation on Eliquis, h heart failure with reduced ejection fraction 29%, hypertension, history of left and right heart cath no obstructive CAD, currently with LifeVest, history of nonsustained V. tach, severe ISAC who presents to [facility] status post cardiac arrest. Currently patient is intubated, sedated, mostly history was provided by at bedside. Patient's tells me that patient has had a slow decline since his last hospitalization in September 2020, he has had increased fatigue, weakness, shortness of breath with exertion,. 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 [facility], to what it sounds like 80 mg twice daily, and he lost over 20 pounds according to his . But still short of breath. This morning and there is nothing out of the ordinary, patient took off his LifeVest to go into the shower, when he heard a large thud. Patient was found by his son, who pulled him out of the shower, started performing CPR, called their neighbors, who are exmilitary, will continue to perform CPR, while she gave [id number], and EMS arrived, patient was found to have V. tach/V. fib rhythm, delivered 1 shock at 200 J, patient went into bradycardia, then asystole rhythm, CPR was continued for 1 cycle plus epinephrine, after 1 cycle, patient was in A. fib with RVR with heart rates in 140s, received Cardizem 10 mg, was still unresponsive, Chad airway was established, IVs were established, in the emergency room, patient had a femoral line placed, ET tube placed, cardiology was consulted, started on amiodarone drip. Currently patient is in A. fib, amiodarone drip has not been started, receiving IV fluids, currently intubated, on the ventilator, no sedation, is nonresponsive, does not withdraw from pain, Babinski is upward bilaterally, has peripheral cyanosis, blood pressures are normotensive, saturating high 90s, pupils equal round reactive to light. Patient's denies a history of pulmonary emboli, is adamant that he is compliant with his medications, no history of strokes, has a history of pneumonia in the last hospitalization, has been complaining of a chronic cough, increasingly recently, has been having bilateral extreme edema, but improved today, no calf pain, no calf swelling, no recent travel. No known exposure to COVID-19 Review of Systems General: Reports: ROS unobtainable due to medical condition Medications/Allergies Home Medications Medication Instructions Recorded Confirmed Last Taken Type multivitamin [Multiple Vitamins] 1 tab PO DAILY 09/19/20 04/21/21 10/02/20 History Vitamin D3 1 tab PO DAILY 10/02/20 04/21/21 10/02/20 History turmeric 400 mg PO DAILY 10/02/20 04/21/21 10/02/20 History apixaban [Eliquis] 5 mg PO BID #60 tab 10/06/20 04/21/21 04/20/21 Rx aspirin 81 mg PO DAILY #30 tab 10/06/20 04/21/21 Unknown Rx furosemide 40 mg PO BID #60 tab 10/06/20 04/21/21 04/20/21 Rx lisinopril 5 mg PO DAILY #30 tab 10/06/20 04/21/21 04/20/21 Rx metoprolol tartrate 25 mg PO BID #60 tab 10/06/20 04/21/21 04/20/21 Rx potassium chloride 20 meq PO DAILY #60 tab 10/06/20 04/21/21 04/20/21 Rx elderberry fruit and flower 1 cap PO DAILY 04/21/21 04/21/21 Unknown History Allergies Allergy/AdvReac Type Severity Reaction Status Date / Time No Known Allergies Allergy Verified 10/12/20 10:21 PFSH Acute PFSH: Medical History Atrial fibrillation Chest pain CHF (congestive heart failure) Community acquired pneumonia Coronary artery disease HFrEF (heart failure with reduced ejection fraction) Hypertension NSVT (nonsustained ventricular tachycardia) Obstructive sleep apnea -severe per sleep study on 03/2019 Surgical History Status post bilateral knee replacements Family History Grandmother Hypertension Social History Smoking and tobacco status: former smoker Quit status (tobacco): has quit using tobacco Alcohol intake: former Year of sobriety/quit date alcohol: 1 month ago Former alcohol use details: Half a pint of vodka, beer use daily Vitals/I&O/Wt Last Vital Signs Temp 97.5 F L 04/21/21 09:57 Pulse 113 H 04/21/21 11:56 Resp 20 H 04/21/21 11:56 BP 159/126 04/21/21 11:56 Pulse Ox 92 04/21/21 11:56 Weight last 48 hrs Weight 86.183 kg Physical Exam Const: COMMON NORMALS: no acute distress ORIENTATION/CONSCIOUSNESS: not awake, not oriented to person, not oriented to place and not oriented to time OTHER: Intubated, on the ventilator, left femoral line in place ET tube in place HENMT: COMMON NORMALS: normocephalic Eye: COMMON NORMALS: Equal, round and reactive pupils present Lymph: LYMPHATIC: no lymphadenopathy noted Chest: COMMONS NORMALS: normal inspection of the chest Cardio: COMMON NORMALS: no JVD RATE: tachycardic RHYTHM: abnormal rhythm HEART SOUNDS: S1 normal heart sound present, S2 normal heart sound present and no murmurs GI: COMMON NORMALS: Normal to inspection, nondistended, normoactive bowel sounds present, Soft to palpation, non-tender and No hepatosplenomegaly present Extremity: COMMON NORMALS: capillary refill normal and no pedal edema Neuro: COMMON NORMALS: negative for patient oriented x3 Skin: OTHER: Peripheral cyanosis, bluish hue to bilateral lower extremities, upper extremities, DP PT pulses 1+ bilaterally Urinary Catheter Management^: Ramirez: Cath Placed During This Visit: yes Urinary Catheter Date of Insertion: 04/21/21 Urinary Catheter Time of Insertion: 10:20 Sepsis: Is patient septic: Yes Focused sepsis exam performed: Yes Date exam was performed: 04/21/21 Time exam was performed: 12:00 Data : 04/21/21 10:05 04/21/21 10:05 A&P Assessment and plan (1) Cardiac arrest: -With evidence of acute respiratory failure, acute renal failure, acute liver failure, -Etiology unclear, could be ventricular arrhythmia from nonischemic cardiomyopathy, acute flash pulmonary edema, cardiac event, or pulmonary emboli, further work-up pending Plan: -Admit to ICU -Continue ventilator, ventilator protocol, minimize PEEP, minimize FiO2 -Propofol, fentanyl for sedation -Start targeted temperature management for the next 24 hours, BMP/CBC/lactic acid/troponin/INR every 4 hours, monitor for cardiac arrhythmias, monitor for bradycardia, monitor for electrolyte derangements, monitor for coagulopathy, monitor for infections -Repeat ABG, obtain lactic acid, received 1 amp of bicarb -Continue amiodarone drip -Start heparin drip -Will receive 1 dose of Lasix, monitor urine output -Obtain CT of the chest, CT of the head, cardiac echo, venous ultrasound, carotid artery ultrasound -Zosyn for aspiration pneumonia coverage -Continue aspirin, statin, statin, 2 EKGs, serial troponins -Cardiology on consult -Cardiology plans on placing internal defibrillator, based on clinical outcome -Neurochecks, aspiration precautions, monitor neurologic status closely, monitor for neurologic recovery -We will consult pulmonary tomorrow -Full code -Heparin for DVT prophylaxis -Protonix for GI prophylaxis -Keep n.p.o. -Femoral line in place, infection control -Patient's decision-maker is his , patient is a full code, she wants us to continue all interventions Status: Acute (2) Atrial fibrillation: Status: Acute (3) HFrEF (heart failure with reduced ejection fraction): Status: Acute (4) Non-ischemic cardiomyopathy: Status: Acute (5) Acute respiratory failure with hypoxia: Status: Acute (6) Metabolic acidosis: Status: Acute (7) NSTEMI (non-ST elevated myocardial infarction): Status: Acute (8) Acute renal failure: Status: Acute (9) Acute liver failure: Status: Acute (10) Fall: Status: Acute Attestations Medical Necessity Statement*: Patient requires hospitalization, inpatient, greater than 2 midnights, for cardiac arrest, acute respiratory failure, A. fib, A. fib with RVR, critical care time spent over 55 minutes Coding Level of Care Code Acute Teaching Aide for Chg Fwd Diagnoses Cardiac arrest I46.9 Atrial fibrillation I48.91 HFrEF (heart failure with reduced ejection fraction) I50.20 Non-ischemic cardiomyopathy I42.8 Acute respiratory failure with hypoxia J96.01 Metabolic acidosis E87.2 NSTEMI (non-ST elevated myocardial infarction) I21.4 Acute renal failure N17.9 Acute liver failure K72.00 Fall W19.XXXA Sepsis Event Note Evaluation Current stage of sepsis: sepsis Possible source: pulmonary Focused Exam Vital Signs Temp Pulse Pulse Resp BP BP Pulse Ox 04/21/21 11:56 113 H 20 H 159/126 92 04/21/21 11:50 120 H 14 146/119 92 04/21/21 11:45 119 H 14 141/98 93 04/21/21 11:40 105 H 14 136/112 91 04/21/21 11:35 119 H 14 162/124 92 04/21/21 11:30 116 H 14 139/105 93 04/21/21 11:25 106 H 18 116/96 04/21/21 11:20 98 14 128/86 95 04/21/21 11:15 123 H 36 H 155/112 95 04/21/21 11:10 160 H 14 162/133 97 04/21/21 11:06 113 H 100 04/21/21 11:05 148 H 14 174/143 99 04/21/21 11:00 148 H 14 158/117 98 04/21/21 10:55 152 H 14 142/115 98 04/21/21 10:50 145 H 14 158/102 98 04/21/21 10:45 147 H 14 124/102 97 04/21/21 10:42 122 H 14 133/103 98 04/21/21 10:40 104 H 6 L 100 04/21/21 10:35 105 H 4 L 96/61 99 04/21/21 10:30 111 H 16 77/65 99 04/21/21 10:23 98 14 98/52 97 04/21/21 10:18 90 16 82/50 93 04/21/21 10:14 14 04/21/21 10:11 96 16 79/64 94 04/21/21 10:08 100 6 L 68/57 97 04/21/21 10:05 146 H 20 H 118/86 96 04/21/21 09:57 97.5 F L 133 H 16 125/93 99 Respiratory exam: Absent accessory muscle use Cardiovascular exam: Present tachycardia and irregularly irregular Capillary refill: > 3 Seconds Peripheral pulse strength: 2+ Slightly Diminished Skin exam: pale Date exam was performed: 04/21/21 Time exam was performed: 12:12 Problem List (1) Atrial fibrillation: Status: Acute (2) HFrEF (heart failure with reduced ejection fraction): Status: Acute (3) Non-ischemic cardiomyopathy: Status: Acute (4) Cardiac arrest: Status: Acute Comment: VT arrest. He had asystole later. (5) Acute respiratory failure with hypoxia: Status: Acute (6) Metabolic acidosis: Status: Acute (7) NSTEMI (non-ST elevated myocardial infarction): Status: Acute (8) Acute renal failure: Status: Acute (9) Acute liver failure: Status: Acute (10) Fall: Status: Acute
--- NOTE | 2021-04-21 12:02 | PC.NURSE ---
Time out was performed prior to femoral central line insertion. Sterile technique was used, pt tolerated fair as pt is intubated during procedure.
--- NOTE | 2021-04-21 12:10 | ECG_ITS ---
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 Measurements Intervals [place] Rate: 124 P: MT: QRS: 269 QRSD: 129 T: 45 QT: 318 QTc: 457 Interpretive Statements ATRIAL FIBRILLATION WITH RAPID VENTRICULAR RESPONSE WITH ABERRANT CONDUCTION OR VENTRICULAR PREMATURE COMPLEXES POSSIBLE RIGHT VENTRICULAR HYPERTROPHY [SOME/ALL OF: PROMINENT R IN V1, LATE TRANSITION, RAD, TORRIE, SSS] ANTEROSEPTAL MYOCARDIAL INFARCTION [40+ ms Q WAVE IN V1-V4], OF INDETERMINATE AGE Compared to ECG 04/21/2021 10:13:01 Ventricular premature complex(es) now present Aberrant conduction of supraventricular beat(s) now present Myocardial infarct finding now present Indeterminate axis no longer present Intraventricular conduction delay no longer present Electronically Signed On 04-21-2021 15:35:09 CDT by Seun Rinaldi M.D. [id number]
[2021-04-21] MEDS: propofol 1,000 MG/100 ML INJ 1.6 MG IV (12:13)
--- NOTE | 2021-04-21 12:15 | PC.NURSE ---
Pt arrived to ED at approx 0955 via EMS and had an Igel in place with BVM support, IO in place. Pt arrived in C-collar and on cardiac pads. Pt was transferred to room bed and changed to hospital BVM and Zoll pads, bilateral IVs established. See triage note for EMS procedures. Pt had Igel removed at 0959 with BVM support and c-collar removed per VO by Dr Mauro at bedside. RT x2 at bedside to assist along with Concrete Engineer Ely Alcantar RN. Pt given medications for intubation and intubated by Dr Mauro with 8.0 tube at 1005, 26 at the lip. Pt tolerated fair. IO was removed and discarded in sharps. Pt had EKG done at 1013, Dr Rinaldi at [facility] at approx [address] Mauro. OG placed at 1017, Ramirez placed at 1020 with no urine return. Pt changed from BVM to ventilator support at 1030, settings as follows: TV 500, RR 14, FiO2 100%, Peep 5. Pt tolerated all procedures well. Central line note: Pt was prepped for central line placement, time out performed prior to procedure. US set up to facilitate catheter placement. Central line placed by Dr Mauro with assist by this nurse at approx [phone]. Sterile, aseptic technique maintained throughout procedure. Attempt x1 successful, dressing applied, medications attached to femoral line. All sharps disposed of in sharps container.
[2021-04-21 12:16] LABS: Estmated Average Glucose 140; Hemoglobin A1C 6.5 % (4.0-6.0)
[2021-04-21 12:20] LABS: C Reactive Protein 5.7 mg/L (0.0-4.9)
[2021-04-21 12:28] LABS: Procalcitonin 0.12 ng/mL (0-0.5)
[2021-04-21 12:46] LABS: Troponin 5 2HR 290.4 ng/L (0-15); Troponin 5 2HR Delta 223.4 ABS# (0-10)
[2021-04-21] MEDS: FUROsemide 10 mg/mL SDV 4mL 40 MG IVP ×2 (12:48→20:13)
[2021-04-21] MEDS: iohexol 350 mg/mL 100 mL Btl IV (13:28)
--- NOTE | 2021-04-21 13:50 | USCV_ITS ---
Zach Austin Age: 56 Gender: M : 1965 Exam Date: 04/21/2021 17:45 Ordering Phys: Param Montague MD Technologist: Rach Falcon [place] [facility] [place]ication: S/P CODE BP: 120 / 77 HR: 118 Rhythm: Sinus Technical Quality: Adequate MEASUREMENTS (Male / Female) Normal Values 2D ECHO LV Chamber Size 4.6 cm RV Chamber Size 4.5 cm LV Ejection Fraction MOD 2C -11.8 % LV Ejection Fraction 2C AL -13.7 % LA Diameter 3.0 cm LA Width 3.8 cm LA Height 5.4 cm RA Width 5.0 cm RA Height 6.5 cm M-MODE LV Diastolic Diameter MM 5.6 cm 4.2 - 5.9 / 3.9 - 5.3 cm IVS Diastolic Thickness MM 0.8 cm 0.6 - 1.0 / 0.6 - 0.9 cm LVPW Diastolic Thickness MM 1.5 cm 0.6 - 1.0 / 0.6 - 0.9 cm RV Diastolic Diameter MM 3.3 cm Aortic Annulus Diameter 2.7 cm LA Ao Ratio MM 1.6 MV E Point Septal Separation 1.2 cm DOPPLER AV Peak Velocity 106.0 cm/s MV Area PHT 5.5 cm squared Mitral E to A Ratio 1.9 MV E' Velocity 59.5 cm/s Mitral E to MV E' Ratio 16.8 Mitral E to LV E' Lateral Ratio 14.6 Mitral E to LV E' Septal Ratio 19.8 TR Peak Velocity 216.1 cm/s TR Peak Gradient 18.7 mmHg TR Mean Velocity 160.0 cm/s TR Mean Gradient 13.6 mmHg TR Velocity Time Integral 60.7 cm TV Peak E Velocity 66.0 cm/s Right Atrial Pressure 15.0 mmHg Pulmonary Artery Systolic Pressu 33.7 mmHg PV Peak Velocity 51.0 cm/s RV Acceleration Time 0.1 s RV Ejection Time 0.3 s RV AcT/ET 0.4 FINDINGS Left Ventricle Normal left ventricular size. LV systolic function is severely reduced with EF of 10-15%. Severe global hypokinesis is seen. Diastolic function is indeterminate because of atrial fibrillation Right Ventricle The right ventricle is dilated and has severely reduced function Right Atrium The right atrium is enlarged Left Atrium The left atrium is enlarged. Mitral Valve Grossly normal Aortic Valve Grossly normal Tricuspid Valve Structurally normal tricuspid valve without significant stenosis. Mild tricuspid regurgitation. RVSP is 30-35mmHg Pulmonic Valve Trace pulmonic regurgitation Pericardium Normal pericardium without effusion. Aorta Normal ascending aorta dimension. CONCLUSIONS Severely reduced LV systolic function with EF of 10-15% RV function is severely reduced Biatrial enlargement Trace pulmonic regurgitation Compared to prior echocardiogram from 09/20/2021, LV systolic function has further decreased to 10-15% Seun Rinaldi MD (Electronically Signed) Final Date: 21 Apr 2021 21:31 S
[2021-04-21 13:59] LABS: Lactate (Lactic Acid level) 4.6 mmol/L (0.5-2.2)
[2021-04-21 14:42] LABS: ABG PCO2 49.9 mmHg (35-45); Arterial Blood Gas Hematocrit > 62.0 % (42-52); Blood Gas Allen Test Pos; Blood Gas Operator Identificat GD; Blood Gas Sample Site Radial, left; Blood Gas Sample Type Arterial; HCO3 ABG 19.5 mmol/L (22-26); Oxygen Device VENT; PO2 ABG 88.5 mmHg (80.0-100.0)
[2021-04-21] MEDS: heparin drip 25,000 UNIT/500 ML PREMIX 24.1 UNIT IV (15:08)
[2021-04-21 15:26] LABS: INR 1.59 (0.8-1.2)
[2021-04-21 15:39] LABS: Troponin T (5th) Once 446 ng/L (0-15)
[2021-04-21] MEDS: pantoprazole 40 mg SDV IVP (15:40)
[2021-04-21] MEDS: piperacillin-tazobactam 3.375 GM in sodium chloride 0.9% (plus) 50 ML IV ×2 (15:41→21:31)
[2021-04-21] MEDS: atorvastatin 40 mg Tablet PO (15:41)
[2021-04-21 16:08] LABS: Anion Gap 25.1 (5-19); Blood Urea Nitrogen 24 mg/dL (6-20); Calcium 8.2 mg/dL (8.5-10.5); Carbon Dioxide 21 mmol/L (22-29); Chloride 98 mmol/L (98-107); Glomerular Filtration Rate 44.9 mL/min (90-130); Glucose 178 mg/dL (65-115); Osmolality Calculated 294 mOsm/kg (285-295); Potassium 6.1 mmol/L (3.5-5.1); Sodium 138 mmol/L (136-145); Thyroid Stimulating Hormone 4.59 uIU/mL (0.27-4.20)
--- NOTE | 2021-04-21 16:10 | ECG_ITS ---
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 Measurements Intervals [place] Rate: 110 P: SD: QRS: 242 QRSD: 118 T: 88 QT: 359 QTc: 486 Interpretive Statements ATRIAL FIBRILLATION WITH RAPID VENTRICULAR RESPONSE WITH ABERRANT CONDUCTION OR VENTRICULAR PREMATURE COMPLEXES INDETERMINATE AXIS INCOMPLETE RIGHT BUNDLE BRANCH BLOCK [90+ ms QRS DURATION, TERMINAL R IN V1/V2, 40+ ms S IN I/aVL/V4/V5/V6] ANTEROSEPTAL MYOCARDIAL INFARCTION [40+ ms Q WAVE IN V1-V4], OF INDETERMINATE AGE Compared to ECG 04/21/2021 15:03:46 Indeterminate axis now present Incomplete right bundle-branch block now present Atrial abnormality no longer present Myocardial infarct finding still present Electronically Signed On 04-21-2021 21:01:33 CDT by Seun Rinaldi M.D. [id number]
[2021-04-21 17:50] LABS: Amphetamines Screen Urine Negative (Negative); Barbiturates Screen Urine Negative (Negative); Benzodiazepines Screen Urine Negative (Negative); Cocaine Screen Urine Negative (Negative); Opiate Screen Urine Negative (Negative); PCP Screen Urine Negative (Negative); THC Screen Urine Negative (Negative)
[2021-04-21 17:53] LABS: Add Urine Microscopic? YES; Bilirubin Urine Neg (Negative); Blood Urine 3+ (Negative); Glucose Urine UA Norm (Normal); Ketones Urine Negative (Negative); Leukocyte Esterase Urine Negative (Negative); Nitrate Urine Negative (Negative); Protein Urine 3+ (Negative); Specific Gravity, Urine 1.015 (1.005-1.030); Urine Appearance Hazy (CLEAR); Urine Color Yellow (Yellow); Urobilinogen Urine Norm (Negative); pH Urine 5 (5-7)
[2021-04-21 17:54] LABS: RBC Urine 15-25 /hpf (0-2)
[2021-04-21 17:55] LABS: Add Urine Culture? Yes; Amorphous Sediment Urine 1+ /hpf; Bacteria Urine 2+ /hpf
[2021-04-21 18:19] LABS: Glucose Point of Care 117 mg/dL (70-110)
[2021-04-21 18:33] LABS: Basophils # 0.1 10^3/uL (0.0-0.1); Basophils % 0.5 %; Eosinophils # 0.1 10^3/uL (0.0-0.8); Eosinophils % 0.3 %; Hematocrit 60.7 % (42.0-52.0); Hemoglobin 19.5 g/dL (11.7-16.6); Lymphocytes # 2.3 10^3/uL (0.8-4.8); Lymphocytes % 11.8 %; Mean Corpuscular HGB Conc 32.1 g/dL (30.0-36.0); Mean Corpuscular Volume 96.5 fL (80-94); Mean Platelet Volume 9.9 fL (7.4-10.4); Monocytes # 1.4 10^3/uL (0.2-0.9); Monocytes % 7.2 %; Neutrophils % 79.2 %; Nucleated Red Blood Cells % 0 %; Platelet Count 301 10^3/cmm (130-400); Red Blood Count 6.29 10^6/uL (4.1-5.3); Red Cell Distribution Width 12.7 % (12.1-15.1); White Blood Count 19.2 10^3/uL (4.0-10.0)
[2021-04-21] MEDS: dextrose 50% syringe 50 mL IVP (18:40)
[2021-04-21] MEDS: calcium gluconate 0.1 gm/mL 10% SDV 10mL 1 GM IVP (18:40)
[2021-04-21] MEDS: insulin regular-human 10 UNIT in SYRINGE 1 EACH IVP (18:41)
--- NOTE | 2021-04-21 18:42 | P.CONIM_ITS ---
Providers/Reason For Consult Consulting Physican/Specialty*: saman orellana md / telenephrology Reason for Consult*: LISSETTE/ hyperkalemia Attending Physician: Param Montague MD Primary Care Provider: Barbi Mendenhall MD History of Present Illness History of Present Illness Zach Austin is a 56 year old male w/ h/o chronic systolic cHF- EF 35-30%, a fib, CAD, htn, h/o NSVT w/ a life vest, ISAC. Pt collapsed in shower this morning. Over last few weeks has been having inc edema and SOB. His lasix dose was recently increased. Today, pt found by his son, on flooe unresponsive in shower. Son and neighbors performed CPR until EMS around. EMS found pt in V tach/ V fib- pt responded to cardiac shock and then epi- came to ER w/ a fib w/ RVR and hypotension and intubated. In ER, Pt found to have + trops, resp acidosis, lactic acidosis, LISSETTE, and hyperkalemia- was given lasix. pt had a CTA that was negative in the ER. The patient was seen by Dr. Rinaldi of cardiology. Pt transferred to ICU. renal called for hyperkalemic LISSETTE Review of Systems General: Reports: ROS unobtainable due to endotracheal tube and ROS unobtainable due to medical condition Meds/Allergies Home Medications and Allergies Home Medications Medication Instructions Recorded Confirmed Last Taken Type multivitamin [Multiple Vitamins] 1 tab PO DAILY 09/19/20 04/21/21 10/02/20 History Vitamin D3 1 tab PO DAILY 10/02/20 04/21/21 10/02/20 History turmeric 400 mg PO DAILY 10/02/20 04/21/21 10/02/20 History apixaban [Eliquis] 5 mg PO BID #60 tab 10/06/20 04/21/21 04/20/21 Rx aspirin 81 mg PO DAILY #30 tab 10/06/20 04/21/21 Unknown Rx furosemide 40 mg PO BID #60 tab 10/06/20 04/21/21 04/20/21 Rx lisinopril 5 mg PO DAILY #30 tab 10/06/20 04/21/21 04/20/21 Rx metoprolol tartrate 25 mg PO BID #60 tab 10/06/20 04/21/21 04/20/21 Rx potassium chloride 20 meq PO DAILY #60 tab 10/06/20 04/21/21 04/20/21 Rx elderberry fruit and flower 1 cap PO DAILY 04/21/21 04/21/21 Unknown History Allergies Allergy/AdvReac Type Severity Reaction Status Date / Time No Known Allergies Allergy Verified 10/12/20 10:21 Current Medications Current Medications Generic Name Dose Route Start Last Admin Trade Name Freq PRN Reason Stop Dose Admin Atorvastatin Calcium 40 mg 04/21/21 13:50 04/21/21 15:41 Atorvastatin 40 Mg Tablet PO 40 mg Q24H ANAY Administration Propofol 1,000 mg in 100 mls @ 0 mls/hr 04/21/21 11:30 04/21/21 17:53 Diprivan IV 35 mcg/kg/min .Q0M ANAY 18.1 mls/hr Titration Protocol Per Protocol Amiodarone HCl 900 mg/ 518 mls @ 0 mls/hr 04/21/21 13:50 04/21/21 14:51 Dextrose/ IV Miscellaneous IV 1 mg/min Supplies .Q0M ANAY 34.5 mls/hr Administration Protocol Per Protocol Piperacillin Sod/Tazobactam 50 mls @ 12.5 mls/hr 04/21/21 14:30 04/21/21 15:41 Sod 3.375 gm/ Sodium Chloride IV 12.5 mls/hr Q8H ANAY Administration Protocol Heparin Sodium/Sodium Chloride 25,000 unit in 500 mls @ 0 mls/hr 04/21/21 13 :50 04/21/21 15:08 Heparin Drip IV 14 unit/kg/hr .Q0M ANAY 24.1 mls/hr Administration Protocol Per Protocol Norepinephrine Bitartrate 4 mg 254 mls @ 0 mls/hr 04/21/21 17:45 04/21/21 17:52 / Dextrose IV 15 mcg/min .Q0M ANAY 57.2 mls/hr Administration Protocol Per Protocol Insulin Aspart 0 unit 04/21/21 18:00 04/21/21 18:17 Insulin Aspart 100 Unit/1 Ml SUBCUT Not Given TIDWM ANAY Protocol Pantoprazole Sodium 40 mg 04/21/21 13:50 04/21/21 15:40 Pantoprazole 40 Mg Sdv IVP 40 mg Q12H ANAY Administration PFSH Acute PFSH: Medical History Atrial fibrillation Chest pain CHF (congestive heart failure) Community acquired pneumonia Coronary artery disease HFrEF (heart failure with reduced ejection fraction) Hypertension NSVT (nonsustained ventricular tachycardia) Obstructive sleep apnea -severe per sleep study on 03/2019 Surgical History Status post bilateral knee replacements Family History Grandmother Hypertension Social History Smoking and tobacco status: former smoker Quit status (tobacco): has quit using tobacco Alcohol intake: former Year of sobriety/quit date alcohol: 1 month ago Former alcohol use details: Half a pint of vodka, beer use daily Vitals/I&O/Wt Last Vital Signs Temp 99.3 F 04/21/21 16:00 Pulse 101 H 04/21/21 16:25 Resp 22 H 04/21/21 17:50 BP 85/60 04/21/21 16:15 Pulse Ox 98 04/21/21 17:50 04/21/21 04/21/21 04/21/21 06:59 14:59 22:59 Intake Total 3103.887 / 3103.887 17.757 / 3121.644 Balance 3103.887 / 3103.887 17.757 / 3121.644 Weight last 48 hrs Weight 86.183 kg Physical Exam Narrative: EXAM NARRATIVE: intubated on levophed, a fib w/ RVR vent AC/VC PEEP 5, TV 500, RR 16, fio2=85% heent- nc/at, pupils very sluggish neck supple lungs basal crckles heart irreg irreg abd soft, nt ext no edema neuro - responsive to voice or touch exam by RN- telehealth visit Urinary Catheter Management^: Ramirez: Cath Placed During This Visit: yes Urinary Catheter Date of Insertion: 04/21/21 Urinary Catheter Time of Insertion: 10:20 Data Micro: Micro: Microbiology 04/21/21 11:16 Gram Stain - Final Sputum - Endotrac heal Tube Aspirate 04/21/21 12:10 Blood Culture - Pr eliminary Blood [facility] 04/21/21 12:05 Blood Culture - Pr eliminary Blood [facility] A&P Additional A&P Information 56 yr old man w/ chronic systolic CHF. Pt has been having inc SOB. PEr chart- non obstructive Coronary angiogram in Sep 2020. 1. cArdiac arrest per cardiology + [place] [address] -lasix per cardiology and medicine 2. LISSETTE- likely ATN- from cardiac arrest in setting of lasix and varun-i use -of note in Sep 2020- CTA revealed, Approximately 60% stenosis of the ostium of the left renal artery. - u/a w/ 3+ protein and blood, + coarse granular casts - I discussed w/ pts that he has LISSETTE- likely aTN- if we can not medically treat the hyperkalemia or acidosis- then would need to consider dialysis. She consents to dialysis if needed. She understands the high risk of dialysis including bleeding and hypotension -unfortunately, we do not know how much anoxic brain injury the pt has developed- However, he is responsive -monitor uop and chemistrues 3. hyperkalemia from LISSETTE, varun-i and potassium use as outpt -monitor repeat chem- 7 -pt is urinating 4. mixed resp and metabolic acidosis -met acidosis from LISSETTE and lactic acidosis prognosis is guaded discussed w/ Dr. Marc Montague in detail. Consult Attestations Medical Necessity Statement: VDRF, a fib w/ RVR, LISSETTE Time Spent in Patient Care: Greater than 35 minutes Coding Level of Care Code Acute Relay Motorman for Tanvirg Andrews
[2021-04-21 18:44] LABS: INR 1.65 (0.8-1.2)
[2021-04-21 20:24] LABS: Lactate (Lactic Acid level) 4.2 mmol/L (0.5-2.2)
[2021-04-21 20:35] LABS: Potassium, Radom Urine 47 mmol/L; Urine Creatinine 46 mg/dL (39-259); Urine Random Chloride 30 mmol/L; Urine Random Sodium 34 mmol/L
[2021-04-21 20:37] LABS: Anion Gap 21.9 (5-19); Blood Urea Nitrogen 26 mg/dL (6-20); Calcium 8.3 mg/dL (8.5-10.5); Carbon Dioxide 20 mmol/L (22-29); Chloride 100 mmol/L (98-107); Creatine Phosphokinase 161 U/L (39-308); Glomerular Filtration Rate 44.9 mL/min (90-130); Glucose 151 mg/dL (65-115); Osmolality Calculated 292 mOsm/kg (285-295); Potassium 4.9 mmol/L (3.5-5.1); Sodium 137 mmol/L (136-145)
[2021-04-21 20:52] LABS: Glucose Point of Care 107 mg/dL (70-110)
[2021-04-21] MEDS: propofol 1,000 MG/100 ML INJ 15.5 MG IV (21:19)
[2021-04-21 21:55] LABS: Basophils # 0.1 10^3/uL (0.0-0.1); Basophils % 0.4 %; Eosinophils # 0.1 10^3/uL (0.0-0.8); Eosinophils % 0.4 %; Hematocrit 55.1 % (42.0-52.0); Hemoglobin 17.8 g/dL (11.7-16.6); Lymphocytes # 2.7 10^3/uL (0.8-4.8); Lymphocytes % 13.4 %; Mean Corpuscular HGB Conc 32.3 g/dL (30.0-36.0); Mean Platelet Volume 9.9 fL (7.4-10.4); Monocytes # 1.9 10^3/uL (0.2-0.9); Monocytes % 9.5 %; Neutrophils # 15.02 10^3/uL (1.8-7.7); Neutrophils % 75.4 %; Nucleated Red Blood Cells % 0 %; Platelet Count 314 10^3/cmm (130-400); Red Blood Count 5.74 10^6/uL (4.1-5.3); Red Cell Distribution Width 12.7 % (12.1-15.1); White Blood Count 19.9 10^3/uL (4.0-10.0)
[2021-04-21 22:16] LABS: Blood Urea Nitrogen 29 mg/dL (6-20); Calcium 8.3 mg/dL (8.5-10.5); Carbon Dioxide 23 mmol/L (22-29); Chloride 101 mmol/L (98-107); Glomerular Filtration Rate 41.9 mL/min (90-130); Glucose 99 mg/dL (65-115); Osmolality Calculated 296 mOsm/kg (285-295); Partial Thromboplastin Time 136.9 SECONDS (23.9-36.7); Sodium 140 mmol/L (136-145)
[2021-04-21 22:22] LABS: Anion Gap 20.3 (5-19); Potassium 4.3 mmol/L (3.5-5.1)
[2021-04-21 22:37] LABS: INR 1.65 (0.8-1.2)
[2021-04-22] VITALS (102 sets, daily range): BP systolic 93–163; BP diastolic 53–119; PULSE 83–142; RESP 14–28; TEMP 36.6–38.2; O2SAT 82–100
[2021-04-22 01:00] LABS: Glucose Point of Care 140 mg/dL (70-110)
[2021-04-22] MEDS: pantoprazole 40 mg SDV IVP ×2 (01:20→13:15)
[2021-04-22 02:34] LABS: Blood Urea Nitrogen 29 mg/dL (6-20); Calcium 7.9 mg/dL (8.5-10.5); Carbon Dioxide 24 mmol/L (22-29); Chloride 99 mmol/L (98-107); Glomerular Filtration Rate 41.9 mL/min (90-130); Glucose 141 mg/dL (65-115); Osmolality Calculated 300 mOsm/kg (285-295); Sodium 141 mmol/L (136-145)
[2021-04-22 02:36] LABS: Anion Gap 22.7 (5-19); Potassium 4.7 mmol/L (3.5-5.1)
[2021-04-22] MEDS: propofol 1,000 MG/100 ML INJ 18.1 MG IV (04:37)
[2021-04-22 04:41] LABS: Basophils # 0.1 10^3/uL (0.0-0.1); Basophils % 0.3 %; Eosinophils % 0.1 %; Hemoglobin 17.7 g/dL (11.7-16.6); Lymphocytes # 2.8 10^3/uL (0.8-4.8); Lymphocytes % 14.7 %; Mean Corpuscular HGB Conc 32.8 g/dL (30.0-36.0); Mean Corpuscular Hemoglobin 31.1 pg (28.0-34.0); Mean Corpuscular Volume 94.9 fL (80-94); Mean Platelet Volume 9.9 fL (7.4-10.4); Monocytes # 1.5 10^3/uL (0.2-0.9); Neutrophils % 76.3 %; Nucleated Red Blood Cells % 0 %; Platelet Count 309 10^3/cmm (130-400); Red Blood Count 5.69 10^6/uL (4.1-5.3); Red Cell Distribution Width 12.7 % (12.1-15.1); White Blood Count 19.1 10^3/uL (4.0-10.0)
[2021-04-22 04:55] LABS: Lactate (Lactic Acid level) 3.1 mmol/L (0.5-2.2)
[2021-04-22 05:04] LABS: INR 1.57 (0.8-1.2)
[2021-04-22 05:05] LABS: NT Pro B Type Natriuretic Pept 21213 pg/mL (0-125); Procalcitonin 2.84 ng/mL (0-0.5)
[2021-04-22 05:11] LABS: D Dimer 1.64 ug/mIFEU (0-0.59)
[2021-04-22 05:14] LABS: Fibrinogen 323 mg/dL (174-498)
[2021-04-22 05:16] LABS: Alanine Aminotransferase 114 U/L (0-41); Albumin Level 3.8 g/dL (3.5-5.2); Alkaline Phosphatase 101 IU/L (40-130); Anion Gap 20.8 (5-19); Aspartate Amino Transferase 112 U/L (0-40); Blood Urea Nitrogen 27 mg/dL (6-20); C Reactive Protein 30.6 mg/L (0.0-4.9); Calcium 8.2 mg/dL (8.5-10.5); Carbon Dioxide 23 mmol/L (22-29); Chloride 101 mmol/L (98-107); Creatine Phosphokinase 147 U/L (39-308); Globulin 2.3 g/dL (1.3-4.6); Glomerular Filtration Rate 44.9 mL/min (90-130); Glucose 153 mg/dL (65-115); Magnesium 2.4 mg/dL (1.7-2.3); Osmolality Calculated 298 mOsm/kg (285-295); Phosphorus 4.6 mg/dL (2.5-4.5); Potassium 4.8 mmol/L (3.5-5.1); Sodium 140 mmol/L (136-145); Total Protein 6.1 g/dL (6.6-8.7)
[2021-04-22 05:17] LABS: Partial Thromboplastin Time 144.3 SECONDS (23.9-36.7)
--- NOTE | 2021-04-22 05:23 | PC.NURSE ---
Shift Summary Patient sedated early on in the shift, post code from the ER, at midngight patient woke up and tired to self extubate, had to place patient in wrist restraints, and increase sedation. Patient was able to wake and follow commands when he is awake, moves everything and seems like he understands what is going on. He is on a heparin drip, Ptt was high previous so decreased it waiting for the next one. Patient seems more agitated and restless as the morning has progressed, he continues to cough and is hard to re sedate. Patient may get extubated today depending on status of his heart. Patient is still on paty at 15 and is not able to be titrated off at this time. Patient is getting an ultrasound of kidneys and carotids at this time. Patient has been severely diaphoretic all night. Heart rate has steadily increased with patient being more awake. Patient had a critical lactic but it was improved from previous lactic, and patient is on antibiotics already. Repeat blood gas looked much improved, patient is down to 40% Fio2 doing well on that.
[2021-04-22] MEDS: piperacillin-tazobactam 3.375 GM in sodium chloride 0.9% (plus) 50 ML IV ×3 (06:00→22:43)
--- NOTE | 2021-04-22 06:00 | ECG_ITS ---
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 Measurements Intervals Inez Rate: 114 P: AK: QRS: 120 QRSD: 126 T: 80 QT: 378 QTc: 521 Interpretive Statements ATRIAL FIBRILLATION WITH RAPID VENTRICULAR RESPONSE INDETERMINATE AXIS POSSIBLE RIGHT VENTRICULAR CONDUCTION DELAY [RSR (QR) IN V1/V2] POSSIBLE ANTERIOR MYOCARDIAL INFARCTION [30 ms Q WAVE IN V3/V4, OR R < 0.2 mV IN V4], OF INDETERMINATE AGE Compared to ECG 04/21/2021 18:24:08 Aberrant conduction of supraventricular beat(s) no longer present Ventricular premature complex(es) no longer present Incomplete right bundle-branch block no longer present Myocardial infarct finding still present Electronically Signed On 04-22-2021 16:21:38 CDT by Seun Rinaldi M.D. [id number]
--- NOTE | 2021-04-22 06:50 | PC.NURSE ---
Patient self extubated at 0635, patient was in bilateral wrist restraints tied tightly to the bed when he did it. Patient leaned up and downward towards his restraint and pulled his ET and OG tube out. Patient was on minimal vent settings and had been doing fine on the vent thorughout the night. Patients propofol was turned off immediately and he woke up enough to protect his airway. Patient is on 6Lnc and tolerating it well, He has a strong voice and is minimally confused. I notified Dr Anderson at 0645 of what happened and he said to monitor for aspiration and he would let the day shift doctor know what happened. Patient sating fine on nasal cannula vitals are all stable at this time.
--- NOTE | 2021-04-22 07:00 | XRR_ITS ---
PROCEDURE INFORMATION: Exam: XR Chest Exam date and time: 04/22/2021 12:00 AM Age: 56 years old Clinical indication: Dyspnea; Patient HX: Intubated; Additional info: SOB TECHNIQUE: Imaging protocol: XR of the chest. Views: 1 view. COMPARISON: CR (CHEST, ) 04/21/2021 10:17 AM FINDINGS: Tubes, catheters and devices: Endotracheal tube is in satisfactory position. Feeding tube is in satisfactory position. Lungs: There is new patchy airspace opacities at the lung bases, which may represent atelectasis or pneumonia in the adequate clinical setting. There is mildly increased lung markings with a small left pleural effusion, which in the setting of cardiomegaly is suggestive of mild pulmonary edema. No pneumothorax. Pleural spaces: See Lungs finding. Heart/Mediastinum: Stable cardiomediastinal silhouette. Bones/joints: Unremarkable. XR/XR chest 1V portable [id number] IMPRESSION: 1. Imaging findings suggestive of mild pulmonary edema. 2. Bibasilar atelectasis versus pneumonia, clinical correlation is recommended.
--- NOTE | 2021-04-22 07:02 | PM.PN ---
Subjective Subjective: Interval history: extubated, feels better. +CP from cpr. less sob. no n/v/f/c/jackson/d Medications: Reviewed: Yes Medication Review Details: Current Medications Acetaminophen (Acetaminophen 325 Mg Tablet) 650 mg PO Q6H PRN PRN Reason: Mild/Mod Pain Or Temp >/= 101 Aspirin (Aspirin 81 Mg Ec Tablet) 81 mg PO DAILY ANAY Atorvastatin Calcium (Atorvastatin 40 Mg Tablet) 40 mg PO Q24H ANAY Last Admin: 04/21/21 15:41 Dose: 40 mg Documented by: Dextrose (Dextrose 50% Syringe 50 Ml) 25 ml IVP ONCE PRN; Protocol PRN Reason: hypoglycemia protocol Dextrose (Dextrose 50% Syringe 50 Ml) 50 ml IVP PRN PRN; Protocol PRN Reason: hypoglycemia protocol Dextrose (Dextrose 50% Syringe 50 Ml) 25 ml IVP ONCE PRN; Protocol PRN Reason: hypoglycemia protocol Dextrose (Dextrose 50% Syringe 50 Ml) 50 ml IVP PRN PRN; Protocol PRN Reason: hypoglycemia protocol Glucagon (Glucagon 1 Mg/Ml Inj 1 Ml) 1 mg IM ONCE PRN; Protocol PRN Reason: Adult Acute Hypoglycemia Prot. Glucagon (Glucagon 1 Mg/Ml Inj 1 Ml) 1 mg IM ONCE PRN; Protocol PRN Reason: Adult Acute Hypoglycemia Prot. Heparin Sodium (Beef Lung) (Heparin 5,000 Unit/Ml Inj 1 Ml) 0 unit IV PRN PRN; Protocol PRN Reason: Heparin weight-base protocol Propofol (Diprivan) 1,000 mg in 100 mls @ 0 mls/hr IV .Q0M ANAY; Protocol Last Titration: 04/22/21 06:40 Dose: 0 mcg/kg/min, 0 mls/hr Documented by: Amiodarone HCl 900 mg/Dextrose/ IV Miscellaneous Supplies 518 mls @ 0 mls/hr IV .Q0M ANAY; Protocol Last Titration: 04/21/21 21:00 Dose: 0.5 mg/min, 17.3 mls/hr Documented by: Piperacillin Sod/Tazobactam (Sod 3.375 gm/ Sodium Chloride) 50 mls @ 12.5 mls/hr IV Q8H ANAY; Protocol Last Admin: 04/22/21 06:00 Dose: 12.5 mls/hr Documented by: Heparin Sodium/Sodium Chloride (Heparin Drip) 25,000 unit in 500 mls @ 0 mls/hr IV .Q0M ANAY; Protocol Last Titration: 04/22/21 05:30 Dose: 8.12 unit/kg/hr, 14 mls/hr Documented by: Dextrose (D5w) 500 mls @ 100 mls/hr IV ONCE PRN; Protocol PRN Reason: Adult Acute Hypoglycemia Prot Propofol (Diprivan) 1,000 mg in 100 mls @ 0 mls/hr IV .Q0M ANAY; Protocol Fentanyl 1,000 mcg/ Sodium (Chloride) 100 mls @ 0 mls/hr IV .Q0M ANAY; Protocol Norepinephrine Bitartrate 4 mg (/ Dextrose) 254 mls @ 0 mls/hr IV .Q0M ANAY; Protocol Last Titration: 04/22/21 06:45 Dose: 12 mcg/min, 45.7 mls/hr Documented by: Dextrose (D5w) 500 mls @ 100 mls/hr IV ONCE PRN; Protocol PRN Reason: Adult Acute Hypoglycemia Prot Insulin Aspart (Insulin Aspart 100 Unit/1 Ml) 0 unit SUBCUT TIDWM ANAY; Protocol Last Admin: 04/21/21 18:17 Dose: Not Given Documented by: Morphine Sulfate (Morphine 4 Mg/Ml Sdv 1 Ml) 1 mg IVP Q4H PRN PRN Reason: SEVERE PAIN Pantoprazole Sodium (Pantoprazole 40 Mg Sdv) 40 mg IVP Q12H ANAY Last Admin: 04/22/21 01:20 Dose: 40 mg Documented by: Vitals/I&O/Wt Last Vital Signs Temp 97.9 F 04/22/21 04:00 Pulse 108 H 04/22/21 06:30 Resp 18 04/22/21 06:00 BP 111/90 04/22/21 06:30 Pulse Ox 95 04/22/21 06:30 04/21/21 04/22/21 04/22/21 22:59 06:59 14:59 Intake Total 665.842 / 3769.729 855.900 / 4625.629 Output Total 425 / 425 800 / 1225 Balance 240.842 / 3344.729 55.900 / 3400.629 Weight last 48 hrs Weight 86.183 kg Physical Exam Narrative: EXAM NARRATIVE: comfortable on nc 02. decreased dose of levophed, a fib w/ RVR heent- nc/at, PERRLA, EOMI, anicteric neck supple lungs basal crckles heart irreg irreg abd soft, nt ext no edema neuro - a,a, o x 3, from x 4 pulses + b/l exam by RN- telehealth visit Urinary Catheter Management^: Ramirez: Cath Placed During This Visit: yes Reason for Continuing Indwelling Catheter: Accurate Measurement of Urinary Output in Critically Ill Patients Urinary Catheter Date of Insertion: 04/21/21 Urinary Catheter Time of Insertion: 10:20 Data : 04/22/21 04:27 04/22/21 04:27 Micro: Microbiology 04/21/21 11:16 Gram Stain - Final Sputum - Endotracheal Tube Aspirate 04/21/21 12:10 Blood Culture - Preliminary Blood SPECIMEN COLLECTED 04/21/21 12:05 Blood Culture - Preliminary Blood SPECIMEN COLLECTED A&P Additional A&P Information 56 yr old man w/ chronic systolic CHF. Pt has been having inc SOB. PEr chart- non obstructive Coronary angiogram in Sep 2020. 1. cArdiac arrest per cardiology + [place] + [place] [address] [place] [address]- d/c ivf- give lasix per cardiology 2. LISSETTE- likely ATN- from cardiac arrest in setting of lasix and varun-i use -of note in Sep 2020- CTA revealed, Approximately 60% stenosis of the ostium of the left renal artery. - u/a w/ 3+ protein and blood, + coarse granular casts - Improved uop. cr stable -monitor uop, chemistries -lasix as needed per cardiology 3. hyperkalemia from LISSETTE, varun-i and potassium use as outpt -improved -monitor chem- 7 -cont to hold potassium chloride and varun-i 4. mixed resp and metabolic acidosis -met acidosis from LISSETTE and lactic acidosis -repeat abg pending -lactate down to 3.1 5. Leukocytosis- renal dose abx 6. hgb remains high at 17.7- even after liters of fluids 7. inc lfts- per medicine prognosis is guaded discussed w/ pt and RN. Attestations Medical Necessity Statement*: s/p cardiac arrest, lissette, chf Time Spent in Patient Care: 16 - 35 minutes Coding Level of Care Code Acute Program And Research Coordinator for Chg Andrews
[2021-04-22 07:33] LABS: Glucose Point of Care 157 mg/dL (70-110)
[2021-04-22] MEDS: FUROsemide 10 mg/mL SDV 4mL 40 MG IVP (09:07)
[2021-04-22] MEDS: aspirin 81 mg EC Tablet PO (09:08)
--- NOTE | 2021-04-22 09:43 | P.PN_ITS ---
Subjective Subjective: Interval history: Patient self extubated this morning. was present bedside at the time of evaluation. Complains of some discomfort in chest where CPR was done. Appears confused about sequence of events since his cardiac arrest. He is asking same questions repeatedly within a span of few minutes. Received Lasix 40 mg IV x1 this morning. UO 1300 ml today. -Remains in A. fib with heart rate high 90s to low 100s with intermittent PVCs. Vitals/I&O/Wt Last Vital Signs Temp 98.0 F 04/22/21 08:00 Pulse 83 04/22/21 09:27 Resp 23 H 04/22/21 08:05 BP 125/74 04/22/21 08:00 Pulse Ox 99 04/22/21 09:27 04/21/21 04/22/21 04/22/21 22:59 06:59 14:59 Intake Total 665.842 / 3769.729 855.900 / 4625.629 56.030 / 56.030 Output Total 425 / 425 800 / 1225 Balance 240.842 / 3344.729 55.900 / 3400.629 56.030 / 56.030 Weight last 48 hrs Weight 190 lb Physical Exam Narrative: EXAM NARRATIVE: GENERAL: obese man sitting in bed in no acute distress HEENT: Pupils equal round reactive to light. No pallor or icterus. NECK: central trachea, No JVD No carotid bruit. CARDIOVASCULAR SYSTEM: S1-S2 regular. No murmur rubs or gallops. RESPIRATORY SYSTEM: Decreased breath sound at bases. No wheezes rhonchi or rubs heard. No use of accessory muscles. ABDOMEN: Soft, nontender and nondistended. Normal bowel sounds present. EXTREMITIES: No cyanosis or clubbing. No edema. No signs of chronic venous insufficiency. EMERGENCY MEDICAL TECH: Patient is alert oriented SKIN: Normal turgor and temperature. Urinary Catheter Management^: Ramirez: Cath Placed During This Visit: yes Reason for Continuing Indwelling Catheter: Accurate Measurement of Urinary Out put in Critically Ill Patients Urinary Catheter Date of Insertion: 04/21/21 Urinary Catheter Time of Insertion: 10:20 Data : 04/22/21 17:17 04/22/21 14:05 Micro: Microbiology 04/21/21 11:16 Gram Stain - Final Sputum - Endotracheal Tube Aspirate Sputum Culture - Preliminary 04/21/21 12:10 Blood Culture - Preliminary Blood SPECIMEN COLLECTED 04/21/21 12:05 Blood Culture - Preliminary Blood SPECIMEN COLLECTED A&P Assessment and plan (1) Cardiac arrest: Status: Acute (2) HFrEF (heart failure with reduced ejection fraction): Status: Acute (3) Atrial fibrillation: Status: Acute Qualifiers: Atrial fibrillation type: unspecified chronic Qualified Code(s): I48.20 - Chronic atrial fibrillation, unspecified (4) Non-ischemic cardiomyopathy: Status: Acute Patient has a history of nonischemic cardiomyopathy. His cardiac catheterization done recently did not reveal any significant coronary artery disease. His EKG did not demonstrating ST elevation MO. Currently patient is in afib with RVR as well. Transition to amiodarone 400 mg p.o. TID. Repeat echocardiogram with severely decreased LV systolic function. Patient will need ICD placement for secondary prophylaxis. Dr. Castelan has been consulted for the same. -I will change heparin drip to Lovenox to reduce his intake. Thank you for involving us with care of this patient. We will continue to follow. Please call with questions. Attestations Medical Necessity Statement*: Needs hospital stay post VT arrest Time Spent in Patient Care: Greater than 35 minutes Coding Level of Care Code Acute Staff Midwife/Apprenticeship Director for Geoff Sparrow Diagnoses Cardiac arrest I46.9 HFrEF (heart failure with reduced ejection fraction) I50.20 Atrial fibrillation I48.20 Atrial fibrillation type: unspecified chronic Non-ischemic cardiomyopathy I42.8
--- NOTE | 2021-04-22 09:54 | PC.CHAP ---
Pastoral Care Encounter/Spiritual Assessment Type of Contact [] Declined drier helper visit [] Patient/Family/Request visit [] Outpatient visit [x] Follow-up visit [] Physician referral [] Code/Alert [] Routine visit [] Staff referral [] Actively dying [] Patient sleeping [] Family support [] [] Out of room [] Palliative care [] [x] Receiving care in room [] Pre-surgical visit [] Trauma [] Long length of stay [] ICU visit [] Other: Relational/Emotional Strength [] Patient feels connected with others/family/visitors/staff [] Distress [] Loneliness/isolation [] Abandonment Spirituality of Patient [] Person of Racquel [] Attends Confucianist of their Racquel [] Believes in Prayer [] Reads Bible or Scientologist materials [] There are Spiritual issues to be addressed Flight Security Specialist Interventions [] Prayer [] Active listening [] Non-anxious presence [] Spiritual/emotional support [] Crisis/trauma care [] Spiritual counseling [] Bereavement support [] Provided bereavement packet [] Provided Bible/devotional materials [] Provided toy/stuffed animal, coloring book to patient or family member [] Provided Communion [] Anointing/[place] [] Salvation [] Completed spiritual assessment [] Other: Impact on Illness or Injury [] Angry [] Fearful [] Anxious [] Often cries [] Exhaustion [] Unable to work [] Unable to attend synagogue [] Unable to walk/stand [] Unable to read [] Unable to drive [] Unable to eat/drink [] Unable to sleep [] Unable to be with family [] Patient intubated [] Other: Summary Time spent with patient
--- NOTE | 2021-04-22 10:00 | PC.NURSE ---
This AM patient was extubated and on room air. Patient is alert and oriented x 4 but is very forgetful. at bedside
[2021-04-22 10:40] LABS: Basophils # 0.1 10^3/uL (0.0-0.1); Basophils % 0.4 %; Eosinophils % 0.1 %; Hematocrit 50.9 % (42.0-52.0); Hemoglobin 16.7 g/dL (11.7-16.6); Lymphocytes % 12.8 %; Mean Corpuscular HGB Conc 32.8 g/dL (30.0-36.0); Mean Corpuscular Hemoglobin 31.1 pg (28.0-34.0); Mean Corpuscular Volume 94.8 fL (80-94); Mean Platelet Volume 9.7 fL (7.4-10.4); Monocytes # 1.1 10^3/uL (0.2-0.9); Monocytes % 6.8 %; Neutrophils # 12.17 10^3/uL (1.8-7.7); Neutrophils % 79.2 %; Nucleated Red Blood Cells % 0 %; Platelet Count 237 10^3/cmm (130-400); Red Blood Count 5.37 10^6/uL (4.1-5.3); Red Cell Distribution Width 12.9 % (12.1-15.1); White Blood Count 15.4 10^3/uL (4.0-10.0)
[2021-04-22 10:58] LABS: INR 1.45 (0.8-1.2)
[2021-04-22 11:04] LABS: Anion Gap 18.1 (5-19); Blood Urea Nitrogen 28 mg/dL (6-20); Carbon Dioxide 24 mmol/L (22-29); Chloride 100 mmol/L (98-107); Glomerular Filtration Rate 48.4 mL/min (90-130); Glucose 114 mg/dL (65-115); Osmolality Calculated 292 mOsm/kg (285-295); Potassium 4.1 mmol/L (3.5-5.1); Sodium 138 mmol/L (136-145)
[2021-04-22 11:21] LABS: Glucose Point of Care 104 mg/dL (70-110)
[2021-04-22] MEDS: amiodarone 200 mg Tablet 400 MG PO ×2 (13:15→20:24)
[2021-04-22] MEDS: atorvastatin 40 mg Tablet PO (13:15)
--- NOTE | 2021-04-22 13:50 | USCV_ITS ---
Zach Austin Age: 56 Gender: M : 1965 Exam Date: 04/22/2021 05:23 Ordering Phys: Param Montague MD Technologist: Rach Falcon Exam Location: [facility] [place] Indication: S/P CODE HISTORY: S/P Code PROCEDURES: The venous duplex Doppler examination of both lower extremities was performed in the standard fashion. The following venous structures were evaluated: common femoral vein, profunda vein, proximal portion of the greater saphenous vein, superficial femoral vein, and the popliteal vein. In addition, the posterior tibial and peroneal trunk were evaluated. Serial compression, augmentation maneuvers, and spectral Doppler flow evaluation were performed. FINDINGS: Normal 2-D Doppler and augmentation and compressibility throughout the lower extremity venous structures. Additional imaging through the proximal calf veins also reveals no thrombus. Limited evaluation of the greater saphenous vein is patent with no thrombus.. Small superficial vessel thrombused in medial lt calf. This vessel flows into Lt GSV below knee. CONCLUSIONS No DVT bilateral lower extremities. Superficial left thrombophlebitis, medial left calf. Dr. Yudy Morley DO (Electronically Signed) Final Date: 22 Apr 2021 08:28 S
--- NOTE | 2021-04-22 13:50 | USCV_ITS ---
Zach Austin Age: 56 Gender: M : 1965 Exam Date: 04/22/2021 05:44 Ordering Phys: Param Montague MD Technologist: Rach Falcon Exam Location: [facility] [place] Indication: AMS Risk Factors: Unknown Previous Vascular Surgery: None Known at this time Right Brachial BP: / Left Brachial BP: / Right Left Velocity (cm/s) Spectral Plaque Velocity (cm/s) Spectral Plaque Syst/Diast Broadening Syst/Diast Broadening 107.95/19.70 Prox CCA 84.80 / 16.80 75.90/ 19.70 Mid CCA 57.80 / 20.30 71.00/ 20.70 Hetro Distal CCA 46.00 / 11.80 Hetro 100.60/28.60 Hetro Prox ICA 73.90 / 22.50 Hetro 77.90/ 23.70 Mid ICA 36.20 / 15.10 80.80/ 19.70 Distal ICA 48.30 / 20.40 83.80 Hetro ECA 96.30 Hetro 1.32 ICA/CCA 1.28 Antegrade Vertebral Antegrade 43.80/ 11.80 cm/s 25.90/ 8.30 cm/s Tri Subclavian Tri 75.90 82.10 FINDINGS Comparison: none available. No significant elevation of systolic or diastolic velocities. Diffuse, mild, slightly irregular, bilateral scattered calcified plaque and intimal thickening throughout the common carotid arteries and extending through the bifurcation. Antegrade vertebral arteries. CONCLUSIONS Bilateral ICA stenosis less than 50%. Mild diffuse atherosclerosis. Dr. Yudy Morley DO (Electronically Signed) Final Date: 22 Apr 2021 08:22 S
[2021-04-22 14:23] LABS: Basophils # 0.1 10^3/uL (0.0-0.1); Basophils % 0.4 %; Eosinophils % 0.3 %; Hematocrit 48.4 % (42.0-52.0); Hemoglobin 15.8 g/dL (11.7-16.6); Lymphocytes # 2.1 10^3/uL (0.8-4.8); Lymphocytes % 13.4 %; Mean Corpuscular HGB Conc 32.6 g/dL (30.0-36.0); Mean Corpuscular Hemoglobin 30.8 pg (28.0-34.0); Mean Corpuscular Volume 94.3 fL (80-94); Mean Platelet Volume 9.9 fL (7.4-10.4); Monocytes # 1.1 10^3/uL (0.2-0.9); Monocytes % 6.8 %; Neutrophils # 12.48 10^3/uL (1.8-7.7); Neutrophils % 78.7 %; Nucleated Red Blood Cells % 0 %; Platelet Count 223 10^3/cmm (130-400); Red Blood Count 5.13 10^6/uL (4.1-5.3); Red Cell Distribution Width 12.8 % (12.1-15.1); White Blood Count 15.9 10^3/uL (4.0-10.0)
[2021-04-22 14:35] LABS: INR 1.44 (0.8-1.2)
[2021-04-22 14:36] LABS: Partial Thromboplastin Time 62.1 SECONDS (23.9-36.7)
[2021-04-22 14:41] LABS: Anion Gap 17.9 (5-19); Blood Urea Nitrogen 26 mg/dL (6-20); Calcium 7.8 mg/dL (8.5-10.5); Carbon Dioxide 26 mmol/L (22-29); Chloride 96 mmol/L (98-107); Glomerular Filtration Rate 52.4 mL/min (90-130); Glucose 131 mg/dL (65-115); Osmolality Calculated 289 mOsm/kg (285-295); Potassium 3.9 mmol/L (3.5-5.1); Sodium 136 mmol/L (136-145)
--- NOTE | 2021-04-22 14:50 | PM.PN ---
Subjective Subjective: Interval history: Zach Austin is a 56 year old male a a past medical history of atrial fibrillation on Eliquis, h heart failure with reduced ejection fraction 29%, hypertension, history of left and right heart cath no obstructive CAD, currently with LifeVest, history of nonsustained V. tach, severe ISAC who presents to [facility] status post cardiac arrest. Overnight patient has self extubated Levophed and Propofol weaned off mental status improving answering questions Vitals/I&O/Wt Last Vital Signs Temp 98.0 F 04/22/21 08:00 Pulse 99 04/22/21 12:30 Resp 20 H 04/22/21 12:30 BP 131/80 04/22/21 12:30 Pulse Ox 88 L 04/22/21 12:30 04/21/21 04/22/21 04/22/21 22:59 06:59 14:59 Intake Total 665.842 / 3769.729 855.900 / 4625.629 758.400 / 758.400 Output Total 425 / 425 800 / 1225 500 / 500 Balance 240.842 / 3344.729 55.900 / 3400.629 258.400 / 258.400 Weight last 48 hrs Weight 190 lb Physical Exam Chest: COMMONS NORMALS: normal inspection of the chest Resp: COMMON NORMALS: normal respiratory effort and No retractions Cardio: COMMON NORMALS: regular rate RATE: regular rate GI: COMMON NORMALS: Normal to inspection, nondistended, normoactive bowel sounds present, Soft to palpation and non-tender PALPATION: Yes Soft to palpation Extremity: COMMON NORMALS: normal to inspection and full ROM Urinary Catheter Management^: Ramirez: Cath Placed During This Visit: yes Reason for Continuing Indwelling Catheter: Accurate Measurement of Urinary Output in Critically Ill Patients Urinary Catheter Date of Insertion: 04/21/21 Urinary Catheter Time of Insertion: 10:20 Data : 04/22/21 14:05 04/22/21 14:05 Micro: Microbiology 04/21/21 12:10 Blood Culture - Preliminary Blood NEGATIVE TO DATE 04/21/21 12:05 Blood Culture - Preliminary Blood NEGATIVE TO DATE 04/21/21 11:16 Gram Stain - Final Sputum - Endotracheal Tube Aspirate Sputum Culture - Preliminary A&P Assessment and plan (1) Cardiac arrest: -- Status: Acute (2) Acute respiratory failure with hypoxia: Status: Acute (3) NSTEMI (non-ST elevated myocardial infarction): Status: Acute (4) New onset atrial fibrillation: Status: Acute Additional A&P Information #cardiac arrest --extubated --off pressors --ECHO completed --asa, statin #Afib --rate controlled --continue amiodarone --heparin gtt #cardiomyopathy --lasix held DM --fsbs, ssi #ATN --appreciate renal recs, #delerium --MS improved Attestations Medical Necessity Statement*: Zach Austin's hospital stay will require greater than 2 midnights for cardiac arrest Coding Level of Care Code Acute Channel Lip Stiffener Insoles for [facility] Fwd Diagnoses Cardiac arrest I46.9 Acute respiratory failure with hypoxia J96.01 NSTEMI (non-ST elevated myocardial infarction) I21.4 New onset atrial fibrillation I48.91
--- NOTE | 2021-04-22 15:30 | PC.NURSE ---
IV amiodarone was shut off per order from Dr. Roche
[2021-04-22 16:35] LABS: Glucose Point of Care 138 mg/dL (70-110)
[2021-04-22 17:33] LABS: Basophils % 0.3 %; Eosinophils # 0.1 10^3/uL (0.0-0.8); Eosinophils % 0.6 %; Hematocrit 46.4 % (42.0-52.0); Hemoglobin 15.4 g/dL (11.7-16.6); Lymphocytes # 2.6 10^3/uL (0.8-4.8); Lymphocytes % 16.9 %; Mean Corpuscular HGB Conc 33.2 g/dL (30.0-36.0); Mean Corpuscular Hemoglobin 31.2 pg (28.0-34.0); Mean Corpuscular Volume 93.9 fL (80-94); Mean Platelet Volume 9.2 fL (7.4-10.4); Monocytes # 1.2 10^3/uL (0.2-0.9); Monocytes % 7.5 %; Neutrophils # 11.42 10^3/uL (1.8-7.7); Neutrophils % 74.2 %; Nucleated Red Blood Cells % 0 %; Platelet Count 202 10^3/cmm (130-400); Red Blood Count 4.94 10^6/uL (4.1-5.3); White Blood Count 15.4 10^3/uL (4.0-10.0)
[2021-04-22 17:55] LABS: INR 1.39 (0.8-1.2)
[2021-04-22 17:56] LABS: Partial Thromboplastin Time 55.8 SECONDS (23.9-36.7)
[2021-04-22 18:06] LABS: Anion Gap 15.9 (5-19); Blood Urea Nitrogen 24 mg/dL (6-20); Calcium 7.8 mg/dL (8.5-10.5); Carbon Dioxide 27 mmol/L (22-29); Chloride 95 mmol/L (98-107); Glomerular Filtration Rate 52.4 mL/min (90-130); Glucose 110 mg/dL (65-115); Osmolality Calculated 283 mOsm/kg (285-295); Potassium 3.9 mmol/L (3.5-5.1); Sodium 134 mmol/L (136-145)
--- NOTE | 2021-04-22 19:10 | US_ITS ---
WS: [id number] RENAL ULTRASOUND HISTORY: mary COMPARISON: None available. TECHNIQUE: 2-D and color Doppler imaging of the kidney submitted. Right kidney: 10.2 cm x 5.9 cm x 5.6 cm. Normal echogenicity with no hydronephrosis or mass. Left kidney: 9.2 cm x 5.2 cm x 6.0 cm. Normal echogenicity with no hydronephrosis or mass. Aorta: Normal. Urinary Bladder: Ramirez catheter in place. No urinary bladder distention. There is a very tiny amount of free fluid in the RIGHT upper quadrant near Morison's pouch. US/US renal BI* [id number] IMPRESSION: 1. No renal obstruction or significant renal atrophy. 2. Nondistended urinary bladder due to Ramirez catheter.
[2021-04-22] MEDS: enoxaparin 80 mg/0.8 mL Syringe SUBCUT (19:42)
[2021-04-22] MEDS: FUROsemide 10 mg/mL SDV 2mL 20 MG IVP (19:42)
[2021-04-22 22:00] LABS: Basophils # 0.1 10^3/uL (0.0-0.1); Basophils % 0.4 %; Eosinophils # 0.2 10^3/uL (0.0-0.8); Eosinophils % 1.1 %; Hematocrit 46.3 % (42.0-52.0); Hemoglobin 15.3 g/dL (11.7-16.6); Lymphocytes # 2.5 10^3/uL (0.8-4.8); Mean Corpuscular Hemoglobin 31.4 pg (28.0-34.0); Mean Corpuscular Volume 94.9 fL (80-94); Mean Platelet Volume 9.4 fL (7.4-10.4); Neutrophils # 10.11 10^3/uL (1.8-7.7); Neutrophils % 73.1 %; Nucleated Red Blood Cells % 0 %; Platelet Count 217 10^3/cmm (130-400); Red Blood Count 4.88 10^6/uL (4.1-5.3); Red Cell Distribution Width 12.9 % (12.1-15.1); White Blood Count 13.8 10^3/uL (4.0-10.0)
[2021-04-22 22:07] LABS: INR 1.36 (0.8-1.2)
[2021-04-22 22:12] LABS: Anion Gap 17.7 (5-19); Blood Urea Nitrogen 19 mg/dL (6-20); Calcium 8.1 mg/dL (8.5-10.5); Carbon Dioxide 23 mmol/L (22-29); Chloride 97 mmol/L (98-107); Creatinine Clr Calc Pharmacy 76.0989; Glomerular Filtration Rate 62.6 mL/min (90-130); Glucose 109 mg/dL (65-115); Osmolality Calculated 281 mOsm/kg (285-295); Potassium 3.7 mmol/L (3.5-5.1); Sodium 134 mmol/L (136-145)
[2021-04-23] VITALS (46 sets, daily range): BP systolic 95–160; BP diastolic 72–109; PULSE 76–127; RESP 14–30; TEMP 36.1–37.1; O2SAT 87–98
[2021-04-23] MEDS: pantoprazole 40 mg SDV IVP ×2 (01:41→13:48)
--- NOTE | 2021-04-23 02:00 | PC.NURSE ---
PATIENT DISRUPTIVE Patient asked this nurse to close the door and pull the curtain, this nurse complied with patient request and pulled the curtain and door. The patient was yelling out from room, this nurse went in to assess patients needs. Patient was yelling that he, does not want the door or curtain closed then stated that, he understands why people in this hospital now . Charge nurse came in to check on the patient, patient then stated that the nurses are sleeping at the nurses station , the charge nurse then informed the patient that, nobody sleeps on the night-shift. We are all here to work and take care of our patients. Charge nurse then left the room. Patient then asked for, that nurses name this nurse provided the charge nurses name. Patient then asked for, that nurses last name this nurse informed patient that last names are not provided for safety reasons and last names are also not on any employees badge. Patient then informed this nurse that he would, let whoever know that I was withholding information from him . This nurse explained to the patient again that giving out last names is a matter of safety for all the employees at the hospital.
[2021-04-23 02:13] LABS: Basophils # 0.1 10^3/uL (0.0-0.1); Basophils % 0.4 %; Eosinophils # 0.2 10^3/uL (0.0-0.8); Eosinophils % 1.4 %; Hematocrit 45.7 % (42.0-52.0); Lymphocytes # 2.4 10^3/uL (0.8-4.8); Lymphocytes % 17.2 %; Mean Corpuscular HGB Conc 32.8 g/dL (30.0-36.0); Mean Corpuscular Hemoglobin 30.7 pg (28.0-34.0); Mean Corpuscular Volume 93.6 fL (80-94); Mean Platelet Volume 9.5 fL (7.4-10.4); Monocytes # 0.7 10^3/uL (0.2-0.9); Monocytes % 5.3 %; Neutrophils # 10.38 10^3/uL (1.8-7.7); Neutrophils % 75.3 %; Nucleated Red Blood Cells % 0 %; Platelet Count 217 10^3/cmm (130-400); Red Blood Count 4.88 10^6/uL (4.1-5.3); White Blood Count 13.8 10^3/uL (4.0-10.0)
[2021-04-23 02:18] LABS: INR 1.35 (0.8-1.2)
[2021-04-23 02:20] LABS: Partial Thromboplastin Time 41.4 SECONDS (23.9-36.7)
[2021-04-23 02:21] LABS: Fibrinogen 316 mg/dL (174-498)
[2021-04-23 02:23] LABS: D Dimer 0.59 ug/mIFEU (0-0.59)
[2021-04-23 02:29] LABS: Lactate (Lactic Acid level) 2.2 mmol/L (0.5-2.2)
[2021-04-23 02:39] LABS: NT Pro B Type Natriuretic Pept 5616 pg/mL (0-125); Procalcitonin 1.58 ng/mL (0-0.5)
[2021-04-23 02:50] LABS: Alanine Aminotransferase 68 U/L (0-41); Albumin Level 3.3 g/dL (3.5-5.2); Alkaline Phosphatase 81 IU/L (40-130); C Reactive Protein 48.3 mg/L (0.0-4.9); Chloride 97 mmol/L (98-107); Creatine Phosphokinase 103 U/L (39-308); Potassium 3.7 mmol/L (3.5-5.1); Sodium 133 mmol/L (136-145)
[2021-04-23 03:09] LABS: Aspartate Amino Transferase 46 U/L (0-40); Blood Urea Nitrogen 19 mg/dL (6-20); Calcium 8.2 mg/dL (8.5-10.5); Carbon Dioxide 24 mmol/L (22-29); Glomerular Filtration Rate 57.1 mL/min (90-130); Glucose 162 mg/dL (65-115); Phosphorus 3.4 mg/dL (2.5-4.5); Total Bilirubin 1.2 mg/dL (0.15-1.2); Total Protein 5.4 g/dL (6.6-8.7)
[2021-04-23 03:12] LABS: Anion Gap 15.7 (5-19); Globulin 2.1 g/dL (1.3-4.6); Osmolality Calculated 282 mOsm/kg (285-295)
[2021-04-23 03:16] LABS: Free T4 Free Thyroxine 1.35 ng/dL (0.82-1.77); T3 Free 2.2 PG/ML (2.0-4.4)
--- NOTE | 2021-04-23 03:28 | PC.NURSE ---
RN responded to call light. Patient voiced concern for light flashing from monitor. Stating that there must be something wrong with him if the light was going off. RN educated patient on reasoning why light was flashing based on found artifact on patients monitoring screen, that is most likely caused from observed movement. Patient asked RN for last names of numerous ICU staff including writers last name. RN explained that it was against policy to release last names of staff, but if there was any comments or complaints he may report them with inclusion of staff members first name and unit worked. Patient asked RN to display vs on TV screen and became upset when RN explained that it was not possible for those results to be displayed based on inability and inhibition in facility technology. RN also educated on use of unit library monitor who's job is to constantly observe patients' vital signs.
--- NOTE | 2021-04-23 04:10 | PC.NURSE ---
BEHAVIORS Patient very rude and non complaint with staff and cares multiple times throughout shift. Cursing and being rude when assigned staff was diligently caring for patient. waterworks supervisor Michaela KWONG notified of patients behaviors and attempts of de-escalation. Michaela KWONG also observed patients rude behaviors. Continue care.
--- NOTE | 2021-04-23 04:51 | PC.NURSE ---
PATIENT FORGETFUL Patient is very forgetful this shift, although he is alert and oriented. Can correctly answer where he is, name, , and recalls any events prior to 04/21/21 very clearly. When asked what is the date the patient reports it as being Thursday04/21/21. This nurse frequently reorients the patient of date and timeline of events since he has been admitted to the hospital. Patient asks this nurse questions which this nurse answers, but then patient asks the same question a few minutes later.
[2021-04-23] MEDS: enoxaparin 80 mg/0.8 mL Syringe SUBCUT (05:37)
[2021-04-23] MEDS: amiodarone 200 mg Tablet 400 MG PO ×3 (05:37→22:10)
[2021-04-23] MEDS: piperacillin-tazobactam 3.375 GM in sodium chloride 0.9% (plus) 50 ML IV ×3 (05:37→22:10)
[2021-04-23 05:43] LABS: ABG PCO2 31.1 mmHg (35-45); Arterial Blood Gas Hematocrit 49.2 % (42-52); Base Excess ABG 1.9 mmol/L (-2.0-2.0); Blood Gas Allen Test Pos; Blood Gas Operator Identificat JB; Blood Gas Sample Site Radial, right; Blood Gas Sample Type Arterial; HCO3 ABG 24.2 mmol/L (22-26); Oxygen Device ROOM AIR
--- NOTE | 2021-04-23 05:58 | PC.NURSE ---
Patient asked to have SCDs reapplied after refusing them at beginning of shift.
--- NOTE | 2021-04-23 06:00 | ECG_ITS ---
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 Measurements Intervals [place] Rate: 111 P: NM: QRS: -24 QRSD: 117 T: -4 QT: 362 QTc: 492 Interpretive Statements ATRIAL FIBRILLATION WITH RAPID VENTRICULAR RESPONSE INDETERMINATE AXIS LOW QRS VOLTAGE IN PRECORDIAL LEADS [QRS DEFLECTION < 1.0 mV IN CHEST LEADS] INCOMPLETE RIGHT BUNDLE BRANCH BLOCK POSSIBLE ANTERIOR MYOCARDIAL INFARCTION, PROBABLY OLD Compared to ECG 04/22/2021 06:10:39 Low QRS voltage now present Incomplete right bundle-branch block now present Myocardial infarct finding still present Electronically Signed On 04-23-2021 18:41:42 CDT by Marlene Tijerina M.D. [id number]
--- NOTE | 2021-04-23 07:03 | PC.NURSE ---
SHIFT SUMMARY Patient is tranquil this morning and very cooperative. Patient had 1050 mLs of bright red urine out all night from the pizano catheter. Patient has no medications currently infusing through the left central line or left peripheral IV.
--- NOTE | 2021-04-23 07:48 | PM.CONSULT ---
Providers/Reason For Consult Consulting Physican/Specialty*: Dr. Castelan/cardiothoracic surgery Reason for Consult*: Severe nonischemic cardiomyopathy with arrhythmia Requesting Physcian: Dr. Tijerina Attending Physician: Joon Paige MD Primary Care Provider: Barbi Mendenhall MD History of Present Illness History of Present Illness Zach Austin is a 56 year old male who was admitted to [facility] on April 21 after presenting by EMS. Patient was found unconscious in the shower at which time CPR was started by his son and neighbors. Upon EMS arrival, he was found to be in V. tach/V. fib and received 1 shock of 200 J. Initially returned to bradycardia, then asystole, with CPR being continued and epinephrine given. Rhythm returned with A. fib with RVR. Patient was intubated and then transported. Amiodarone drip was initiated for A. fib with rapid ventricular response. Mr. Austin self extubated yesterday morning early and initially appeared to be confused. Subsequent evaluations included echocardiogram which revealed ejection fraction of 10 to 15% which had decreased from prior study. He has a known cardiomyopathy with an ejection fraction of around 30% and with a LifeVest, which he has not been wearing recently. Left heart catheterization from October 02, 2020 revealed no obstructive coronary disease. He had elevated left and right-sided pressures. He was in atrial fibrillation at the time of the catheterization as well. CT scan of the head during this admission was negative for acute event. Carotid duplex study reveals velocities consistent with less than 50% stenosis bilaterally. Over the next 24 hours, his sensorium and cognition have improved back to baseline. He is amnestic to the first 48 hours of his hospitalization. Ventricular rate response to his A. fib has improved with his heart rate now, around 100. Currently on Zosyn for aspiration pneumonia coverage given his arrest and subsequent intubation. Review of Systems General: Reports: Other Narrative: Review of systems obtained from chart review, prior interview with , and from Mr. Austin this morning. He does have fatigue with exertion and occasional dyspnea though history of lower extremity edema has improved most recently. Meds/Allergies Home Medications and Allergies Home Medications Medication Instructions Recorded Confirmed Last Taken Type multivitamin [Multiple Vitamins] 1 tab PO DAILY 09/19/20 04/21/21 10/02/20 History Vitamin D3 1 tab PO DAILY 10/02/20 04/21/21 10/02/20 History turmeric 400 mg PO DAILY 10/02/20 04/21/21 10/02/20 History apixaban [Eliquis] 5 mg PO BID #60 tab 10/06/20 04/21/21 04/20/21 Rx aspirin 81 mg PO DAILY #30 tab 10/06/20 04/21/21 Unknown Rx furosemide 40 mg PO BID #60 tab 10/06/20 04/21/21 04/20/21 Rx lisinopril 5 mg PO DAILY #30 tab 10/06/20 04/21/21 04/20/21 Rx metoprolol tartrate 25 mg PO BID #60 tab 10/06/20 04/21/21 04/20/21 Rx potassium chloride 20 meq PO DAILY #60 tab 10/06/20 04/21/21 04/20/21 Rx elderberry fruit and flower 1 cap PO DAILY 04/21/21 04/21/21 Unknown History Allergies Allergy/AdvReac Type Severity Reaction Status Date / Time No Known Allergies Allergy Verified 10/12/20 10:21 Current Medications Current Medications Generic Name Dose Route Start Last Admin Trade Name Freq PRN Reason Stop Dose Admin Amiodarone HCl 400 mg 04/22/21 13:15 04/23/21 05:37 Amiodarone 200 Mg Tablet PO 400 mg Q8H ANAY Administration Aspirin 81 mg 04/22/21 09:00 04/22/21 09:08 Aspirin 81 Mg Ec Tablet PO 81 mg DAILY ANAY Administration Atorvastatin Calcium 40 mg 04/21/21 13:50 04/22/21 13:15 Atorvastatin 40 Mg Tablet PO 40 mg Q24H ANAY Administration Enoxaparin Sodium 80 mg 04/22/21 18:00 04/23/21 05:37 Enoxaparin 80 Mg/0.8 Ml Syringe SUBCUT 80 mg Q12H ANAY Administration Piperacillin Sod/Tazobactam 50 mls @ 12.5 mls/hr 04/21/21 14:30 04/23/21 05:37 Sod 3.375 gm/ Sodium Chloride IV 12.5 mls/hr Q8H ANAY Administration Protocol Norepinephrine Bitartrate 4 mg 254 mls @ 0 mls/hr 04/21/21 17:45 04/22/21 08:27 / Dextrose IV 4 mcg/min .Q0M ANAY 15.2 mls/hr Titration Protocol Per Protocol Insulin Aspart 0 unit 04/21/21 18:00 04/22/21 17:27 Insulin Aspart 100 Unit/1 Ml SUBCUT Not Given TIDWM ANAY Protocol Pantoprazole Sodium 40 mg 04/21/21 13:50 04/23/21 01:41 Pantoprazole 40 Mg Sdv IVP 40 mg Q12H ANAY Administration PFSH Acute PFSH: Medical History Atrial fibrillation Chest pain CHF (congestive heart failure) Community acquired pneumonia Coronary artery disease HFrEF (heart failure with reduced ejection fraction) Hypertension NSVT (nonsustained ventricular tachycardia) Obstructive sleep apnea -severe per sleep study on 03/2019 Surgical History Status post bilateral knee replacements Family History Grandmother Hypertension Social History Smoking and tobacco status: former smoker Quit status (tobacco): has quit using tobacco Alcohol intake: former Year of sobriety/quit date alcohol: 1 month ago Former alcohol use details: Half a pint of vodka, beer use daily Vitals/I&O/Wt Last Vital Signs Temp 97.8 F 04/23/21 04:00 Pulse 106 H 04/23/21 07:43 Resp 30 H 04/23/21 06:00 BP 133/90 04/23/21 05:30 Pulse Ox 96 04/23/21 07:43 04/22/21 04/23/21 04/23/21 22:59 06:59 14:59 Intake Total 410 / 1168.400 50 / 1218.400 Output Total 1000 / 1500 1050 / 2550 Balance -590 / -331.600 -1000 / -1331.600 Weight last 48 hrs Weight 190 lb Physical Exam HENMT: COMMON NORMALS: normocephalic, atraumatic and hearing grossly normal bilaterally HEAD & SCALP: normocephalic and atraumatic Neck/C-Spine: COMMON NORMALS: full ROM, supple, no JVD and No carotid bruits Chest: COMMONS NORMALS: normal inspection of the chest; negative for normal palpation of entire chest wall (Still some tenderness from CPR) CHEST: Yes Symmetrical chest wall rise and No crepitus Resp: COMMON NORMALS: normal respiratory effort, No retractions, No use of accessory muscles, clear to auscultation bilaterally and percussion normal EFFORT & INSPECTION: Yes able to speak in complete sentences and Yes symmetric chest movement AUSCULTATION: clear to auscultation bilaterally PERCUSSION: percussion normal Cardio: COMMON NORMALS: no JVD, regular rate, S1 normal heart sound present and No rub (Cardio); negative for regular rhythm RATE: regular rate RHYTHM: abnormal rhythm and abnormal rhythm irregularly irregular HEART SOUNDS: S1 normal heart sound present BRUITS: no carotid bruits and no femoral bruits GI: COMMON NORMALS: Normal to inspection, nondistended, normoactive bowel sounds present Urinary Catheter Management^: Ramirez: Cath Placed During This Visit: yes Reason for Continuing Indwelling Catheter: Accurate Measurement of Urinary Output in Critically Ill Patients Urinary Catheter Date of Insertion: 04/21/21 Urinary Catheter Time of Insertion: 10:20 Data Micro: Micro: Microbiology 04/21/21 17:15 Urine Culture - Pr eliminary Urine Catheterize d 04/21/21 12:10 Blood Culture - Pr eliminary Blood NEGATIVE TO OSIRIS E 04/21/21 12:05 Blood Culture - Pr eliminary Blood NEGATIVE TO OSIRIS E 04/21/21 11:16 Gram Stain - Final Sputum - Endotrac heal Tube Aspirate Sputum Culture - P reliminary A&P Assessment and plan (1) Non-ischemic cardiomyopathy: Clear nonischemic cardiomyopathy with ejection fraction of 10 to 15% on most recent echocardiogram of this admission. Once cleared from our cardiology and hospitalist colleagues, we will tentatively plan for AICD implantation. I have initially set this scheduled for tomorrow, though may be adjusted as needed. I discussed this carefully with Mr. Austin. He has tentatively agreed though wishes to discuss matters further with his who will be present later today. Rationale for the recommendation was carefully reviewed as well as the risk of the procedure. All questions have been answered with my initial visit with him this morning. We will follow up later today. 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
--- NOTE | 2021-04-23 07:50 | P.PN_ITS ---
Subjective Subjective: Interval history: cp, sob, weak, swollen Medications: Reviewed: Yes Medication Review Details: Current Medications Acetaminophen (Acetaminophen 325 Mg Tablet) 650 mg PO Q6H PRN PRN Reason: Mild/Mod Pain Or Temp >/= 101 Amiodarone HCl (Amiodarone 200 Mg Tablet) 400 mg PO Q8H [facility] Last Admin: 04/23/21 05:37 Dose: 400 mg Documented by: Aspirin (Aspirin 81 Mg Ec Tablet) 81 mg PO DAILY [facility] Last Admin: 04/22/21 09:08 Dose: 81 mg Documented by: Atorvastatin Calcium (Atorvastatin 40 Mg Tablet) 40 mg PO Q24H ANAY Last Admin: 04/22/21 13:15 Dose: 40 mg Documented by: Chlorhexidine Gluconate (Chlorhexidine Gluconate 4% Btl 118 Ml) 1 applic TOPICAL BID ANAY Dextrose (Dextrose 50% Syringe 50 Ml) 25 ml IVP ONCE PRN; Protocol PRN Reason: hypoglycemia protocol Dextrose (Dextrose 50% Syringe 50 Ml) 50 ml IVP PRN PRN; Protocol PRN Reason: hypoglycemia protocol Dextrose (Dextrose 50% Syringe 50 Ml) 25 ml IVP ONCE PRN; Protocol PRN Reason: hypoglycemia protocol Dextrose (Dextrose 50% Syringe 50 Ml) 50 ml IVP PRN PRN; Protocol PRN Reason: hypoglycemia protocol Enoxaparin Sodium (Enoxaparin 80 Mg/0.8 Ml Syringe) 80 mg SUBCUT Q12H [facility] Last Admin: 04/23/21 05:37 Dose: 80 mg Documented by: Furosemide (Furosemide 10 Mg/Ml Sdv 4ml) 40 mg IVP Q24H ANAY Glucagon (Glucagon 1 Mg/Ml Inj 1 Ml) 1 mg IM ONCE PRN; Protocol PRN Reason: Adult Acute Hypoglycemia Prot. Glucagon (Glucagon 1 Mg/Ml Inj 1 Ml) 1 mg IM ONCE PRN; Protocol PRN Reason: Adult Acute Hypoglycemia Prot. Piperacillin Sod/Tazobactam (Sod 3.375 gm/ Sodium Chloride) 50 mls @ 12.5 ml s/hr IV Q8H ANAY; Protocol Last Admin: 04/23/21 05:37 Dose: 12.5 mls/hr Documented by: Propofol (Diprivan) 1,000 mg in 100 mls @ 0 mls/hr IV .Q0M ANAY; Protocol Fentanyl 1,000 mcg/ Sodium (Chloride) 100 mls @ 0 mls/hr IV .Q0M ANAY; Protocol Norepinephrine Bitartrate 4 mg (/ Dextrose) 254 mls @ 0 mls/hr IV .Q0M ANAY; Protocol Last Titration: 04/22/21 08:27 Dose: 4 mcg/min, 15.2 mls/hr Documented by: Dextrose (D5w) 500 mls @ 100 mls/hr IV ONCE PRN; Protocol PRN Reason: Adult Acute Hypoglycemia Prot Insulin Aspart (Insulin Aspart 100 Unit/1 Ml) 0 unit SUBCUT TIDWM ANAY; Protocol Last Admin: 04/22/21 17:27 Dose: Not Given Documented by: Morphine Sulfate (Morphine 4 Mg/Ml Sdv 1 Ml) 1 mg IVP Q4H PRN PRN Reason: SEVERE PAIN Pantoprazole Sodium (Pantoprazole 40 Mg Sdv) 40 mg IVP Q12H [facility] Last Admin: 04/23/21 01:41 Dose: 40 mg Documented by: Vitals/I&O/Wt Last Vital Signs Temp 97.8 F 04/23/21 04:00 Pulse 106 H 04/23/21 07:43 Resp 30 H 04/23/21 06:00 BP 133/90 04/23/21 05:30 Pulse Ox 96 04/23/21 07:43 04/22/21 04/23/21 04/23/21 22:59 06:59 14:59 Intake Total 410 / 1168.400 50 / 1218.400 Output Total 1000 / 1500 1050 / 2550 Balance -590 / -331.600 -1000 / -1331.600 Weight last 48 hrs Weight 86.183 kg Physical Exam Narrative: EXAM NARRATIVE: comfortable on nc 02. a fib w/ RVR heent- nc/at, PERRLA, EOMI, anicteric neck supple lungs b/l crackles heart irreg irreg abd soft, nt ext no edema neuro - a,a, o x 3, from x 4 pulses + b/l exam by RN- telehealth visit Urinary Catheter Management^: Ramirez: Cath Placed During This Visit: yes Reason for Continuing Indwelling Catheter: Accurate Measurement of Urinary Output in Critically Ill Patients Urinary Catheter Date of Insertion: 04/21/21 Urinary Catheter Time of Insertion: 10:20 Data : 04/23/21 02:00 04/23/21 02:00 Micro: Microbiology 04/21/21 17:15 Urine Culture - Preliminary Urine Catheterized 04/21/21 12:10 Blood Culture - Preliminary Blood NEGATIVE TO DATE 04/21/21 12:05 Blood Culture - Preliminary Blood NEGATIVE TO DATE 04/21/21 11:16 Gram Stain - Final Sputum - Endotracheal Tube Aspirate Sputum Culture - Preliminary A&P Additional A&P Information 56 yr old man w/ chronic systolic CHF. Pt has been having inc SOB. PEr chart- non obstructive Coronary angiogram in Sep 2020. 1. cArdiac arrest per cardiology + [place] [address] [place] [id number]- lasix per cardiology 2. LISSETTE- likely ATN- from cardiac arrest in setting of lasix and varun-i use -of note in Sep 2020- CTA revealed, Approximately 60% stenosis of the ostium of the left renal artery. - u/a w/ 3+ protein and blood, + coarse granular casts - Improved uop and cr -monitor uop, chemistries -lasix as needed per cardiology 3. hyperkalemia from LISSETTE, varun-i and potassium use as outpt -improved -monitor chem- 7 -replete now to keep k >4, mag 2 as in a fib 4. resp alkalosis -met acidosis from LISSETTE and lactic acidosis -improved 5. Leukocytosis improving 6. hgb normal 7. inc lfts- per medicine -improving DM control discussed w/ pt and RN. 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
[2021-04-23 07:58] LABS: Glucose Point of Care 116 mg/dL (70-110)
[2021-04-23] MEDS: mupirocin oint 22 gm 1 APPLIC NOSTRIL-B (08:11)
[2021-04-23] MEDS: FUROsemide 10 mg/mL SDV 4mL 40 MG IVP (08:11)
[2021-04-23] MEDS: aspirin 81 mg EC Tablet PO (08:11)
--- NOTE | 2021-04-23 09:21 | PM.PN ---
Subjective Subjective: Interval history: Patient is awake, alert and oriented. He does have recall of the last 2 days. Tentatively planned to have the defibrillator placed tomorrow. Vitals/I&O/Wt Last Vital Signs Temp 97.7 F 04/23/21 08:00 Pulse 112 H 04/23/21 08:00 Resp 17 04/23/21 08:00 BP 145/74 04/23/21 08:00 Pulse Ox 97 04/23/21 08:00 04/22/21 04/23/21 04/23/21 22:59 06:59 14:59 Intake Total 410 / 1168.400 50 / 1218.400 120 / 120 Output Total 1000 / 1500 1050 / 2550 Balance -590 / -331.600 -1000 / -1331.600 120 / 120 Weight last 48 hrs Weight 190 lb Physical Exam Narrative: EXAM NARRATIVE: GENERAL: Alert and oriented x 3 HEENT: Pupils equal round reactive to light. No pallor or icterus. NECK: central trachea, No JVD No carotid bruit. CARDIOVASCULAR SYSTEM: S1-S2 regular. No murmur rubs or gallops. RESPIRATORY SYSTEM: Decreased breath sound at bases. No wheezes rhonchi or rubs heard. No use of accessory muscles. ABDOMEN: Soft, nontender and nondistended. Normal bowel sounds present. EXTREMITIES: No cyanosis or clubbing. No edema. No signs of chronic venous insufficiency. BACK UP SCAN COORDINATOR: Patient is alert oriented SKIN: Normal turgor and temperature. Urinary Catheter Management^: Ramirez: Cath Placed During This Visit: yes Reason for Continuing Indwelling Catheter: Accurate Measurement of Urinary Output in Critically Ill Patients Urinary Catheter Date of Insertion: 04/21/21 Urinary Catheter Time of Insertion: 10:20 Data : 04/23/21 02:00 04/23/21 02:00 Micro: Microbiology 04/21/21 11:16 Gram Stain - Final Sputum - Endotracheal Tube Aspirate Sputum Culture - Final 04/21/21 17:15 Urine Culture - Preliminary Urine Catheterized 04/21/21 12:10 Blood Culture - Preliminary Blood NEGATIVE TO DATE 04/21/21 12:05 Blood Culture - Preliminary Blood NEGATIVE TO DATE A&P Assessment and plan (1) Atrial fibrillation: Status: Acute Qualifiers: Atrial fibrillation type: unspecified chronic Qualified Code(s): I48.20 - Chronic atrial fibrillation, unspecified (2) HFrEF (heart failure with reduced ejection fraction): Status: Acute (3) Non-ischemic cardiomyopathy: Status: Acute (4) Cardiac arrest: Status: Acute Patient has a history of nonischemic cardiomyopathy. He did not follow-up with our cardiology office as he was supposed to get a repeat echocardiogram in 3 months for evaluation for need of ICD. His cardiac catheterization recently did not reveal any significant coronary artery disease. He had a VT arrest. His EKG did not demonstrate ST elevation OR. Continue amiodarone 400mg TID Currently patient is in afib with RVR Patient will need defibrillator for secondary prevention Tentative plan for a defibrillator tomorrow with Dr Castelan Thank you for involving us with care of this patient. We will continue to follow. Please call with questions. Attestations Medical Necessity Statement*: Care expected for last 2 midnights Coding Level of Care Code Acute Bell Clerk for [facility] Fwd Diagnoses Atrial fibrillation I48.20 Atrial fibrillation type: unspecified chronic HFrEF (heart failure with reduced ejection fraction) I50.20 Non-ischemic cardiomyopathy I42.8 Cardiac arrest I46.9
--- NOTE | 2021-04-23 09:34 | PC.CHAP ---
Pastoral Care Encounter/Spiritual Assessment Type of Contact [] Declined lab associate visit [] Patient/Family/Request visit [] Outpatient visit [] Follow-up visit [] Physician referral [] Code/Alert [x] Routine visit [] Staff referral [] Actively dying [] Patient sleeping [x] Family support [] [] Out of room [] Palliative care [] [] Receiving care in room [] Pre-surgical visit [] Trauma [] Long length of stay [x] ICU visit [] Other: Relational/Emotional Strength [] Patient feels connected with others/family/visitors/staff [] Distress [] Loneliness/isolation [] Abandonment Spirituality of Patient [] Person of Racquel [] Attends Yazidi of their Racquel [] Believes in Prayer [] Reads Bible or Orthodox materials [] There are Spiritual issues to be addressed Gum Maker Interventions [x] Prayer [x] Active listening [x] Non-anxious presence [x] Spiritual/emotional support [] Crisis/trauma care [] Spiritual counseling [] Bereavement support [] Provided bereavement packet [] Provided Bible/devotional materials [] Provided toy/stuffed animal, coloring book to patient or family member [] Provided Communion [] Anointing/[place] [] Salvation [x] Completed spiritual assessment [] Other: Impact on Illness or Injury [] Angry [] Fearful [] Anxious [] Often cries [] Exhaustion [] Unable to work [] Unable to attend yazidi [] Unable to walk/stand [] Unable to read [] Unable to drive [] Unable to eat/drink [] Unable to sleep [] Unable to be with family [] Patient intubated [] Other: Summary patient still having chest pain.. coughing .. stopped smoking for a short period of time.. Time spent with patient 15 min
[2021-04-23 10:58] LABS: ABG PH Result 7.42 (7.35-7.45)
[2021-04-23 10:59] LABS: Base Excess ABG -1.8 mmol/L (-2.0-2.0); HCO3 ABG 21.9 mmol/L (22-26); Oxygen Device vent
[2021-04-23 11:01] LABS: Blood Gas Sample Type Arterial
[2021-04-23 11:02] LABS: Arterial Blood Gas Hematocrit 55.8 % (42-52)
[2021-04-23 12:03] LABS: Glucose Point of Care 130 mg/dL (70-110)
[2021-04-23 12:13] LABS: Anti-Double Strand DNA AB <1 IU/mL
[2021-04-23] MEDS: atorvastatin 40 mg Tablet PO (13:48)
--- NOTE | 2021-04-23 16:13 | P.PN_ITS ---
Subjective Subjective: Interval history: Zach Austin is a 56 year old male a a past medical history of atrial fibrillation on Eliquis, h heart failure with reduced ejection fraction 29%, hypertension, history of left and right heart cath no obstructive CAD, currently with LifeVest, history of nonsustained V. tach, severe ISAC who presents to [facility] status post cardiac arrest. Overnight patient had agressive behavior per staff vitals stable at bedside still some confusion Medications: Reviewed: Yes Vitals/I&O/Wt Last Vital Signs Temp 97.9 F 04/23/21 14:00 Pulse 92 04/23/21 14:00 Resp 18 04/23/21 14:00 BP 106/84 04/23/21 14:00 Pulse Ox 94 04/23/21 14:00 04/23/21 04/23/21 04/23/21 06:59 14:59 22:59 Intake Total 50 / 1218.400 170 / 170 Output Total 1050 / 2550 2100 / 2100 Balance -1000 / -1331.600 -1930 / -1930 Physical Exam Const: COMMON NORMALS: average body habitus ORIENTATION/CONSCIOUSNESS: Yes awake, Yes oriented to person and Yes oriented to place Chest: COMMONS NORMALS: normal inspection of the chest Resp: COMMON NORMALS: normal respiratory effort and No use of accessory muscles Cardio: COMMON NORMALS: regular rate and regular rhythm RATE: regular rate RHYTHM: regular rhythm GI: COMMON NORMALS: Soft to palpation and non-tender PALPATION: Yes Soft to palpation Extremity: COMMON NORMALS: normal to inspection and full ROM Neuro: SENSORIUM/ORIENTATION: Yes oriented to person and Yes oriented to place Psych: COMMON NORMALS: cooperative and speech normal SPEECH: Yes normal speech Urinary Catheter Management^: Ramirez: Cath Placed During This Visit: yes Reason for Continuing Indwelling Catheter: Accurate Measurement of Urinary Output in Critically Ill Patients Urinary Catheter Date of Insertion: 04/21/21 Urinary Catheter Time of Insertion: 10:20 Data : 04/23/21 02:00 04/23/21 02:00 Micro: Microbiology 04/21/21 11:16 Gram Stain - Final Sputum - Endotracheal Tube Aspirate Sputum Culture - Final 04/21/21 17:15 Urine Culture - Preliminary Urine Catheterized 04/21/21 12:10 Blood Culture - Preliminary Blood NEGATIVE TO DATE 04/21/21 12:05 Blood Culture - Preliminary Blood NEGATIVE TO DATE A&P Assessment and plan (1) Acute liver failure: Status: Acute (2) Metabolic acidosis: Status: Acute (3) Acute respiratory failure with hypoxia: Status: Acute (4) Cardiac arrest: Status: Acute (5) Atrial fibrillation: Status: Acute Qualifiers: Atrial fibrillation type: unspecified chronic Qualified Code(s): I48.20 - Chronic atrial fibrillation, unspecified (6) Non-ischemic cardiomyopathy: Status: Acute Additional A&P Information #cardiac arrest --extubated --off pressors --ECHO completed --asa, statin #Afib --rate controlled --continue amiodarone --lovenox #cardiomyopathy --lasix held --anticipate for AICD DM --fsbs, ssi #ATN --appreciate renal recs, #delerium --MS improved #abnormal cxr --pulm edema vs pna --on zosyn --will repeat DVT:Lovenox Attestations Medical Necessity Statement*: Zach Austin's hospital stay will require greater than 2 midnights for cardiac arrest Coding Level of Care Code Acute [employer] Justice for g Fwd Diagnoses Acute liver failure K72.00 Metabolic acidosis E87.2 Acute respiratory failure with hypoxia J96.01 Cardiac arrest I46.9 Atrial fibrillation I48.20 Atrial fibrillation type: unspecified chronic Non-ischemic cardiomyopathy I42.8
--- NOTE | 2021-04-23 16:19 | XR_ITS ---
WS: [id number] Exam: XR chest 1V portable [id number] Date/Time of Exam: 04/23/2021 4:20 PM Reason For Exam: followup Comparison 04/22/2014. ET tube and NG tube have been removed. The lungs are fully expanded and clear. There is cardiac enlar gement unchanged. No pleural effusions. The mediastinum and osseous thorax are unremarkable. XR/XR chest 1V portable [id number] IMPRESSION: 1. Cardiac enlargement unchanged. No acute process noted.
--- NOTE | 2021-04-23 17:02 | P.PN_ITS ---
Subjective Subjective: Interval history: Chest x-ray obtained this afternoon reveals clearing of his lung nagel and generalized cardiomegaly. I have spoken at bedside with his , Bindu. She states he is still having difficulty with acute short-term memory but is clearly improved. I discussed the recommendations for AICD implantation. She is eager to proceed. Vitals/I&O/Wt Last Vital Signs Temp 98.7 F 04/23/21 16:00 Pulse 101 H 04/23/21 16:00 Resp 26 H 04/23/21 16:00 BP 105/77 04/23/21 16:00 Pulse Ox 98 04/23/21 16:00 04/23/21 04/23/21 04/23/21 06:59 14:59 22:59 Intake Total 50 / 1218.400 170 / 170 Output Total 1050 / 2550 2099 / 2099 Balance -1000 / -1331.600 -1930 / -1930 Physical Exam Resp: COMMON NORMALS: normal respiratory effort, No retractions and clear to auscultation bilaterally AUSCULTATION: clear to auscultation bilaterally Cardio: COMMON NORMALS: negative for regular rhythm RHYTHM: abnormal rhythm and abnormal rhythm irregularly irregular BRUITS: no carotid bruits Urinary Catheter Management^: Ramirez: Cath Placed During This Visit: yes Reason for Continuing Indwelling Catheter: Accurate Measurement of Urinary Output in Critically Ill Patients Urinary Catheter Date of Insertion: 04/21/21 Urinary Catheter Time of Insertion: 10:20 Data : 04/23/21 02:00 04/23/21 02:00 Micro: Microbiology 04/21/21 11:16 Gram Stain - Final Sputum - Endotracheal Tube Aspirate Sputum Culture - Final 04/21/21 17:15 Urine Culture - Preliminary Urine Catheterized 04/21/21 12:10 Blood Culture - Preliminary Blood NEGATIVE TO DATE 04/21/21 12:05 Blood Culture - Preliminary Blood NEGATIVE TO DATE A&P Assessment and plan (1) Non-ischemic cardiomyopathy: We have tentatively scheduled AICD implantation for tomorrow at 12 noon. We will await the review of tomorrow's labs. Status: Acute Attestations Medical Necessity Statement*: Severe cardiomyopathy with ventricular fibrillation and cardiac arrest Time Spent in Patient Care: less than 15 minutes Coding Level of Care Code Acute Insurance Law Specialist for [facility] Diagnoses Non-ischemic cardiomyopathy I42.8
[2021-04-23 17:27] LABS: Glucose Point of Care 130 mg/dL (70-110)
[2021-04-23 22:19] LABS: Glucose Point of Care 139 mg/dL (70-110)
[2021-04-24] VITALS (61 sets, daily range): BP systolic 85–140; BP diastolic 56–105; PULSE 79–132; RESP 7–34; TEMP 35.8–36.6; O2SAT 90–100
--- NOTE | 2021-04-24 | SCC_ITS ---
Procedure Done: Automatic implantable cardiac defibrillator implantation 49.2 seconds of fluoroscopic guidance, for a cumulative dose of 10.31 mGy, was provided to Dr. Castelan by the radiology department. C-arm images of the chest were saved for the patient's permanent record. [facility]
[2021-04-24] MEDS: pantoprazole 40 mg SDV IVP ×2 (01:10→14:21)
[2021-04-24 05:10] LABS: Basophils # 0.1 10^3/uL (0.0-0.1); Basophils % 0.5 %; Eosinophils # 0.4 10^3/uL (0.0-0.8); Eosinophils % 3.4 %; Hematocrit 44.7 % (42.0-52.0); Hemoglobin 14.8 g/dL (11.7-16.6); Lymphocytes % 16.3 %; Mean Corpuscular HGB Conc 33.1 g/dL (30.0-36.0); Mean Corpuscular Hemoglobin 31.1 pg (28.0-34.0); Mean Corpuscular Volume 93.9 fL (80-94); Mean Platelet Volume 9.8 fL (7.4-10.4); Monocytes # 0.9 10^3/uL (0.2-0.9); Monocytes % 7.6 %; Neutrophils # 8.65 10^3/uL (1.8-7.7); Neutrophils % 71.9 %; Nucleated Red Blood Cells % 0 %; Platelet Count 214 10^3/cmm (130-400); Red Blood Count 4.76 10^6/uL (4.1-5.3); Red Cell Distribution Width 12.8 % (12.1-15.1)
[2021-04-24 05:21] LABS: INR 1.21 (0.8-1.2)
[2021-04-24 05:23] LABS: Partial Thromboplastin Time 35.4 SECONDS (23.9-36.7)
[2021-04-24 05:24] LABS: Fibrinogen 416 mg/dL (174-498)
[2021-04-24 05:25] LABS: D Dimer 0.43 ug/mIFEU (0-0.59); Lactate (Lactic Acid level) 1.5 mmol/L (0.5-2.2)
[2021-04-24] MEDS: amiodarone 200 mg Tablet 400 MG PO ×3 (05:33→21:41)
[2021-04-24] MEDS: piperacillin-tazobactam 3.375 GM in sodium chloride 0.9% (plus) 50 ML IV ×3 (05:33→21:41)
[2021-04-24] MEDS: chlorhexidine gluconate 4% Btl 118 mL 1 APPLIC TOPICAL ×2 (05:34→09:23)
[2021-04-24 05:47] LABS: Alanine Aminotransferase 57 U/L (0-41); Albumin Level 3.3 g/dL (3.5-5.2); Alkaline Phosphatase 78 IU/L (40-130); Anion Gap 13.6 (5-19); Aspartate Amino Transferase 34 U/L (0-40); Blood Urea Nitrogen 17 mg/dL (6-20); C Reactive Protein 22.2 mg/L (0.0-4.9); Calcium 8.1 mg/dL (8.5-10.5); Carbon Dioxide 25 mmol/L (22-29); Chloride 97 mmol/L (98-107); Creatine Phosphokinase 53 U/L (39-308); Globulin 2.7 g/dL (1.3-4.6); Glomerular Filtration Rate 69.2 mL/min (90-130); Glucose 114 mg/dL (65-115); Osmolality Calculated 276 mOsm/kg (285-295); Potassium 3.6 mmol/L (3.5-5.1); Sodium 132 mmol/L (136-145); Total Bilirubin 1.1 mg/dL (0.15-1.2)
[2021-04-24 05:56] LABS: Procalcitonin 0.76 ng/mL (0-0.5)
[2021-04-24 05:57] LABS: NT Pro B Type Natriuretic Pept 6133 pg/mL (0-125)
--- NOTE | 2021-04-24 06:00 | ECG_ITS ---
[facility] Test Date: 2021-04-24 Pat Name: Zach Austin Department: Room: ICU08 Gender: Male Clinical Evaluator: : 1965 Requested By: Param Montague Order Number: [id number] Anna Marie MD: Seun Rinaldi M.D. Measurements Intervals [place] Rate: 93 P: IN: QRS: -4 QRSD: 121 T: 53 QT: 423 QTc: 528 Interpretive Statements ATRIAL FIBRILLATION INDETERMINATE AXIS POSSIBLE RIGHT VENTRICULAR CONDUCTION DELAY [RSR (QR) IN V1/V2] POSSIBLE ANTERIOR MYOCARDIAL INFARCTION [30 ms Q WAVE IN V3/V4, OR R < 0.2 mV IN V4], PROBABLY OLD Compared to ECG 04/23/2021 05:28:19 Incomplete right bundle-branch block no longer present Myocardial infarct finding still present Electronically Signed On 04-24-2021 17:43:14 CDT by Seun Rinaldi M.D. [id number]
--- NOTE | 2021-04-24 06:18 | PC.NURSE ---
Shift Summary Patient has been pleasant most of the night, he got upset around 0200 due to EVS waking him up when the cleaned his neighbors room and slammed the toilet, he had not slept at all yet and got upset bc that woke him up, He then got upset because the monitor kept going off and Scott tried to explain to him why and what was going on, he did not take kindly to that and was upset about it for about 2 hours, then he finally took an hour long nap and has been back to being pleasant since. I am concerned he may have a brain injury form his event, since his short term is so bad and he is not able to sleep at all well, has insomnia at this time. Patient had some high heart rates and received oral amio for it, tolerated it fine. He is NPO at this time for pacemaker/defib placement later today. Chlorahexadine bath is done and he is shaved and ready to go, consent is signed and in the chart.
--- NOTE | 2021-04-24 07:04 | PM.PN ---
Subjective Subjective: Interval history: Mr. Austin resting this morning. Still with A. fib and occasional tachycardia. Received amiodarone with a sip of water this morning. Otherwise, n.p.o. No ventricular arrhythmias reported. Remains afebrile. Nurses report he still has short-term memory loss. Most recent chest x-ray is clear. WBC decreasing. Vitals/I&O/Wt Last Vital Signs Temp 97.8 F 04/24/21 04:00 Pulse 99 04/24/21 06:15 Resp 24 H 04/24/21 06:15 BP 114/85 04/24/21 06:15 Pulse Ox 92 04/24/21 06:15 04/23/21 04/24/21 04/24/21 22:59 06:59 14:59 Intake Total 50 / 220 50 / 270 Output Total 850 / 2950 Balance -800 / -2730 50 / -2680 Physical Exam Resp: COMMON NORMALS: normal respiratory effort, No retractions, No use of accessory muscles and clear to auscultation bilaterally EFFORT & INSPECTION: Yes symmetric chest movement AUSCULTATION: clear to auscultation bilaterally Cardio: COMMON NORMALS: regular rate and S1 normal heart sound present; negative for regular rhythm RATE: regular rate RHYTHM: abnormal rhythm and abnormal rhythm irregularly irregular HEART SOUNDS: S1 normal heart sound present Extremity: COMMON NORMALS: no clubbing, cyanosis or edema Urinary Catheter Management^: Ramirez: Cath Placed During This Visit: yes, but has since been removed by the nurse Reason for Continuing Indwelling Catheter: Accurate Measurement of Urinary Output in Critically Ill Patients Urinary Catheter Date of Insertion: 04/21/21 Urinary Catheter Time of Insertion: 10:20 Date Urinary Catheter Removed: 04/23/21 Time Urinary Catheter Discontinued: 17:44 Data : 04/24/21 04:57 04/24/21 04:57 Micro: Microbiology 04/21/21 11:16 Gram Stain - Final Sputum - Endotracheal Tube Aspirate Sputum Culture - Final 04/21/21 17:15 Urine Culture - Preliminary Urine Catheterized A&P Assessment and plan (1) Non-ischemic cardiomyopathy: We will plan for AICD implantation later this morning. Details and risk of surgery been previously reviewed with Mr. Austin and with his yesterday afternoon. All questions answered. They are ready to proceed. Status: Acute Attestations Medical Necessity Statement*: Nonischemic cardiomyopathy with ventricular arrhythmia and previous cardiac arrest requiring CPR and electrical cardioversion. Time Spent in Patient Care: less than 15 minutes Coding Level of Care Code Acute Outside Sales Account Manager for [facility] Fwd Diagnoses Non-ischemic cardiomyopathy I42.8
--- NOTE | 2021-04-24 07:30 | PC.NURSE ---
Noted MAR shows Levophed still infusing. Levophed not infusing, nor per am report infused at pm shift either. . MAR corrected to show no Levoped this am.
[2021-04-24] MEDS: aspirin 81 mg EC Tablet PO (08:22)
[2021-04-24] MEDS: FUROsemide 10 mg/mL SDV 4mL 40 MG IVP (08:22)
[2021-04-24 08:37] LABS: Glucose Point of Care 102 mg/dL (70-110)
--- NOTE | 2021-04-24 09:10 | PM.PN ---
Subjective Subjective: Interval history: Patient is doing well. No complaints of chest pain or shortness of breath. Planned to undergo placement of ICD today Vitals/I&O/Wt Last Vital Signs Temp 97.8 F 04/24/21 04:00 Pulse 99 04/24/21 06:15 Resp 24 H 04/24/21 06:15 BP 114/85 04/24/21 06:15 Pulse Ox 92 04/24/21 06:15 04/23/21 04/24/21 04/24/21 22:59 06:59 14:59 Intake Total 50 / 220 50 / 270 Output Total 850 / 2950 Balance -800 / -2730 50 / -2680 Physical Exam Narrative: EXAM NARRATIVE: GENERAL: Alert and oriented x 3 HEENT: Pupils equal round reactive to light. No pallor or icterus. NECK: central trachea, No JVD No carotid bruit. CARDIOVASCULAR SYSTEM: S1-S2 regular. No murmur rubs or gallops. RESPIRATORY SYSTEM: Decreased breath sound at bases. No wheezes rhonchi or rubs heard. No use of accessory muscles. ABDOMEN: Soft, nontender and nondistended. Normal bowel sounds present. EXTREMITIES: No cyanosis or clubbing. No edema. No signs of chronic venous insufficiency. MOVEMENT ASSEMBLY FINAL INSPECTOR: Patient is alert oriented SKIN: Normal turgor and temperature. Urinary Catheter Management^: Ramirez: Cath Placed During This Visit: yes, but has since been removed by the nurse Reason for Continuing Indwelling Catheter: Accurate Measurement of Urinary Output in Critically Ill Patients Urinary Catheter Date of Insertion: 04/21/21 Urinary Catheter Time of Insertion: 10:20 Date Urinary Catheter Removed: 04/23/21 Time Urinary Catheter Discontinued: 17:44 Data : 04/25/21 04:21 04/25/21 04:21 Micro: Microbiology 04/21/21 17:15 Urine Culture - Final Urine Catheterized 04/21/21 11:16 Gram Stain - Final Sputum - Endotracheal Tube Aspirate Sputum Culture - Final A&P Assessment and plan (1) Atrial fibrillation: Status: Acute Qualifiers: Atrial fibrillation type: unspecified chronic Qualified Code(s): I48.20 - Chronic atrial fibrillation, unspecified (2) HFrEF (heart failure with reduced ejection fraction): Status: Acute (3) Non-ischemic cardiomyopathy: Status: Acute (4) Cardiac arrest: Status: Acute Patient has a history of nonischemic cardiomyopathy. He did not follow-up with our cardiology office as he was supposed to get a repeat echocardiogram in 3 months for evaluation for need of ICD. His cardiac catheterization recently did not reveal any significant coronary artery disease. He had a VT arrest. His EKG did not demonstrate ST elevation NM. Continue amiodarone 400mg TID Patient has intermittent RVR episodes Patient is planned to undergo ICD placement today with Dr Castelan Thank you for involving us with care of this patient. We will continue to follow. Please call with questions. Attestations Medical Necessity Statement*: Care expected to cross 2 midnights. Coding Level of Care Code Acute Machine Carton Marker for [facility] Fwd Diagnoses Atrial fibrillation I48.20 Atrial fibrillation type: unspecified chronic HFrEF (heart failure with reduced ejection fraction) I50.20 Non-ischemic cardiomyopathy I42.8 Cardiac arrest I46.9
--- NOTE | 2021-04-24 09:30 | PC.NURSE ---
Small run, approx 10 beats, of VT noted on monitor. Pt asymptomatic.
[2021-04-24] MEDS: morphine 4 mg/mL SDV 1 mL 1 MG IVP (09:32)
--- NOTE | 2021-04-24 09:42 | PC.CHAP ---
Pastoral Care Encounter/Spiritual Assessment Type of Contact [] Declined nail tech visit [] Patient/Family/Request visit [] Outpatient visit [] Follow-up visit [] Physician referral [] Code/Alert [x] Routine visit [] Staff referral [] Actively dying [] Patient sleeping [x] Family support [] [] Out of room [] Palliative care [] [] Receiving care in room [x] Pre-surgical visit [] Trauma [] Long length of stay [x] ICU visit [] Other: Relational/Emotional Strength [] Patient feels connected with others/family/visitors/staff [] Distress [] Loneliness/isolation [] Abandonment Spirituality of Patient [x] Person of Racquel [] Attends Temple of their Racquel [] Believes in Prayer [] Reads Bible or Latter-Day materials [] There are Spiritual issues to be addressed Capacitor Repairer Interventions [x] Prayer [x] Active listening [x] Non-anxious presence [x] Spiritual/emotional support [] Crisis/trauma care [] Spiritual counseling [] Bereavement support [] Provided bereavement packet [] Provided Bible/devotional materials [] Provided toy/stuffed animal, coloring book to patient or family member [] Provided Communion [] Anointing/[place] [] Salvation [x] Completed spiritual assessment [] Other: Impact on Illness or Injury [] Angry [] Fearful [] Anxious [] Often cries [] Exhaustion [] Unable to work [] Unable to attend anabaptist [] Unable to walk/stand [] Unable to read [] Unable to drive [] Unable to eat/drink [] Unable to sleep [] Unable to be with family [] Patient intubated [] Other: Summary patient preparing for surgery this afternoon... seems to be in better spirits.. will check again tomorrow on patient Time spent with patient 15 min
--- NOTE | 2021-04-24 10:10 | PC.NURSE ---
Pt guarding during cough. Encouraged pillow use for splinting chest. Pt verbalized understanding then proceeded to do during next cough. Morphine admin for pain. Will continue to monitor.
--- NOTE | 2021-04-24 10:45 | PC.NURSE ---
Prep for surgery completed with clean linens also. Dr Paige, here in unit, updated on pt's condition. Informed and showed strip print out of VT run this am.
--- NOTE | 2021-04-24 11:42 | ANES.PREANE2 ---
Pre-Anesthetic Assessment Pre-Anesthetic Assessment: Height/Weight: Height 1.78 m Weight 86.183 kg Temp Pulse Resp BP Pulse Ox 96.5 F L 96 17 113/79 93 04/24/21 07:30 04/24/21 10:30 04/24/21 10:30 04/24/21 10:30 04/24/21 10:30 Preop Diagnosis: New onset heart failure Proposed Procedure: Operation Date: 04/24/21 12:00 Proposed Procedures p Defibrillator Placement(Not Applicable) - Ortiz Castelan MD Familial anesthetic complications: None Was Beta Wanda taken within 24 hours: Yes Was Clonidine taken within 24 hours: N/A Last intake: Intake Last Liquid Date 04/24/21 Last Liquid Time 08:00 Last Solid Date 04/23/21 Last Solid Time 19:00 Social: Social History: Tobacco and No alcohol Exam: Pre-Anes Outpt Exam: alert, oriented x 3, clear to auscultation bilaterally and regular rate & rhythm Airway: Cervical ROM: WNL MP: 3 Dentition: Full Pulmonary: Pulmonary: Sleep apnea CV/HEM: CV/HEM: Afib Comments: No CAD, however patient is in hopsital post-cardiac arrest. Found blue in shower by his family. Now extubated, tolerated propofol gtt while intubated in ICU. EF is 10 to 15%, RV function severely reduced, Trace PVR. Anesthetic Plan: ASA status: 4 Anesthesia: MAC Other: patient educated on need for minimal anesthesai given cardiac status - will do fentanyl, versed. Minimal Propofol if needed Risk of > 500 ml blood loss (7ml/kg in children): No Meds/Allergies Current Medications: Current Medications Generic Name Dose Route Start Last Admin Trade Name Freq PRN Reason Stop Dose Admin Amiodarone HCl 400 mg 04/22/21 13:15 04/24/21 05:33 Amiodarone 200 M g Tablet PO 400 mg Q8H ANAY Administration Aspirin 81 mg 04/22/21 09:00 04/24/21 08:22 Aspirin 81 Mg Ec Tablet PO 81 mg DAILY ANAY Administration Atorvastatin Calci um 40 mg 04/21/21 13:50 04/23/21 13:48 Atorvastatin 40 Mg Tablet PO 40 mg Q24H ANAY Administration Chlorhexidine Gluc ainsley 1 applic 04/23/21 09:00 04/24/21 09:23 Chlorhexidine Gl uconate 4% Btl 118 Ml TOPICAL 1 applic BID ANAY Administration Enoxaparin Sodium 80 mg 04/22/21 18:00 04/23/21 05:37 Enoxaparin 80 Mg /0.8 Ml Syringe SUBCUT 80 mg Q12H ANAY Administration Furosemide 40 mg 04/23/21 08:00 04/24/21 08:22 Furosemide 10 Mg /Ml Sdv 4ml IVP 40 mg Q24H ANAY Administration Piperacillin Sod/T azobactam 50 mls @ 12.5 mls /hr 04/21/21 14:30 04/24/21 09:45 Sod 3.375 gm/ So dium Chloride IV Infused Q8H ANAY Infusion Protocol Norepinephrine Bit artrate 4 mg 254 mls @ 0 mls/h r 04/21/21 17:45 04/24/21 06:40 / Dextrose IV Infused .Q0M ANAY Titration Protocol Per Protocol Morphine Sulfate 1 mg 04/21/21 13:50 04/24/21 09:32 Morphine 4 Mg/Ml Sdv 1 Ml IVP 1 mg Q4H PRN Administration SEVERE PAIN Pantoprazole Sodiu m 40 mg 04/21/21 13:50 04/24/21 01:10 Pantoprazole 40 Mg Sdv IVP 40 mg Q12H ANAY Administration Additional Medication Information: Current Medications Acetaminophen (Acetaminophen 325 Mg Tablet) 650 mg PO Q6H PRN PRN Reason: Mild/Mod Pain Or Temp >/= 101 Amiodarone HCl (Amiodarone 200 Mg Tablet) 400 mg PO Q8H ANAY Last Admin: 04/23/21 05:37 Dose: 400 mg Documented by: Aspirin (Aspirin 81 Mg Ec Tablet) 81 mg PO DAILY [facility] Last Admin: 04/22/21 09:08 Dose: 81 mg Documented by: Atorvastatin Calcium (Atorvastatin 40 Mg Tablet) 40 mg PO Q24H [facility] Last Admin: 04/22/21 13:15 Dose: 40 mg Documented by: Chlorhexidine Gluconate (Chlorhexidine Gluconate 4% Btl 118 Ml) 1 applic TOPICAL BID ANAY Dextrose (Dextrose 50% Syringe 50 Ml) 25 ml IVP ONCE PRN; Protocol PRN Reason: hypoglycemia protocol Dextrose (Dextrose 50% Syringe 50 Ml) 50 ml IVP PRN PRN; Protocol PRN Reason: hypoglycemia protocol Dextrose (Dextrose 50% Syringe 50 Ml) 25 ml IVP ONCE PRN; Protocol PRN Reason: hypoglycemia protocol Dextrose (Dextrose 50% Syringe 50 Ml) 50 ml IVP PRN PRN; Protocol PRN Reason: hypoglycemia protocol Enoxaparin Sodium (Enoxaparin 80 Mg/0.8 Ml Syringe) 80 mg SUBCUT Q12H [facility] Last Admin: 04/23/21 05:37 Dose: 80 mg Documented by: Furosemide (Furosemide 10 Mg/Ml Sdv 4ml) 40 mg IVP Q24H ANAY Glucagon (Glucagon 1 Mg/Ml Inj 1 Ml) 1 mg IM ONCE PRN; Protocol PRN Reason: Adult Acute Hypoglycemia Prot. Glucagon (Glucagon 1 Mg/Ml Inj 1 Ml) 1 mg IM ONCE PRN; Protocol PRN Reason: Adult Acute Hypoglycemia Prot. Piperacillin Sod/Tazobactam (Sod 3.375 gm/ Sodium Chloride) 50 mls @ 12.5 mls/hr IV Q8H ANAY; Protocol Last Admin: 04/23/21 05:37 Dose: 12.5 mls/hr Documented by: Propofol (Diprivan) 1,000 mg in 100 mls @ 0 mls/hr IV .Q0M ANAY; Protocol Fentanyl 1,000 mcg/ Sodium (Chloride) 100 mls @ 0 mls/hr IV .Q0M ANAY; Protocol Norepinephrine Bitartrate 4 mg (/ Dextrose) 254 mls @ 0 mls/hr IV .Q0M ANAY; Protocol Last Titration: 04/22/21 08:27 Dose: 4 mcg/min, 15.2 mls/hr Documented by: Dextrose (D5w) 500 mls @ 100 mls/hr IV ONCE PRN; Protocol PRN Reason: Adult Acute Hypoglycemia Prot Insulin Aspart (Insulin Aspart 100 Unit/1 Ml) 0 unit SUBCUT TIDWM ANAY; Protocol Last Admin: 04/22/21 17:27 Dose: Not Given Documented by: Morphine Sulfate (Morphine 4 Mg/Ml Sdv 1 Ml) 1 mg IVP Q4H PRN PRN Reason: SEVERE PAIN Pantoprazole Sodium (Pantoprazole 40 Mg Sdv) 40 mg IVP Q12H [facility] Last Admin: 04/23/21 01:41 Dose: 40 mg Documented by: [facility] Anesthesia [facility]: Medical History Atrial fibrillation Chest pain CHF (congestive heart failure) Community acquired pneumonia Coronary artery disease HFrEF (heart failure with reduced ejection fraction) Hypertension NSVT (nonsustained ventricular tachycardia) Obstructive sleep apnea -severe per sleep study on 03/2019 Surgical History Status post bilateral knee replacements Family History Grandmother Hypertension Social History Smoking and tobacco status: former smoker Quit status (tobacco): has quit using tobacco Alcohol intake: former Year of sobriety/quit date alcohol: 1 month ago Former alcohol use details: Half a pint of vodka, beer use daily Data Anesthesia CBC & Chem 7: 04/24/21 04:57 04/24/21 04:57 Other Labs: Laboratory Results - last 48 hr 04/21/21 04/22/21 04/22/21 19:37 03:35 14:05 WBC 15.9 H RBC 5.13 Hgb 15.8 Hct 48.4 MCV 94.3 H MCH 30.8 MCHC 32.6 RDW 12.8 Plt Count 223 MPV 9.9 Neut % (Auto) 78.7 Lymph % (Auto) 13.4 Rock % (Auto) 6.8 Eos % (Auto) 0.3 Baso % (Auto) 0.4 Neut # (Auto) 12.48 H Lymph # (Auto) 2.1 Rock # (Auto) 1.1 H Eos # (Auto) 0.0 Baso # (Auto) 0.1 Nucleated RBC % (auto) 0 Nucleated RBCs # 0.0 PT INR APTT Fibrinogen Fibrin Degrad Products D-Dimer Specimen Type Arterial Sample Site Brachial,right ABG pH 7.42 ABG pCO2 34.0 L ABG pO2 107.0 H ABG HCO3 21.9 L ABG Base Excess -1.8 [facility] Test n/a Hematocrit 55.8 H Respiration Rate 16.0 O2 Delivery Device vent SIMV 16.0 FiO2 45.0 Tidal Volume .50 PEEP 5.0 Specimen Drawn By Clerical Administrator ID sommer Crit Value Read Back 0345 Blood Gas Notified Time 0345 Sodium Potassium Chloride Carbon Dioxide Anion Gap BUN Creatinine GFR Calculation Glucose POC Glucose Calculated Osmolality Lactate Calcium Phosphorus Magnesium Total Bilirubin AST ALT Alkaline Phosphatase Creatine Kinase C-Reactive Protein NT-Pro-B Natriuret Pep Total Protein Albumin Globulin Procalcitonin Free T4 Free T3 Anti-ds DNA IgG Ab <1 04/22/21 04/22/21 04/22/21 14:05 14:05 16:27 WBC RBC Hgb Hct MCV MCH MCHC RDW Plt Count MPV Neut % (Auto) Lymph % (Auto) Rock % (Auto) Eos % (Auto) Baso % (Auto) Neut # (Auto) Lymph # (Auto) Rock # (Auto) Eos # (Auto) Baso # (Auto) Nucleated RBC % (auto) Nucleated RBCs # PT 18.00 H INR 1.44 H APTT 62.1 H D Fibrinogen Fibrin Degrad Products D-Dimer Specimen Type Sample Site ABG pH ABG pCO2 ABG pO2 ABG HCO3 ABG Base Excess Duke Test Hematocrit Respiration Rate O2 Delivery Device SIMV FiO2 Tidal Volume PEEP Specimen Drawn By Clerical Administrator ID Crit Value Read Back Blood Gas Notified Time Sodium 136 Potassium 3.9 Chloride 96 L Carbon Dioxide 26 Anion Gap 17.9 BUN 26 H Creatinine 1.4 H GFR Calculation 52.4 L Glucose 131 H POC Glucose 138 H Calculated Osmolality 289 Lactate Calcium 7.8 L Phosphorus Magnesium Total Bilirubin AST ALT Alkaline Phosphatase Creatine Kinase C-Reactive Protein NT-Pro-B Natriuret Pep Total Protein Albumin Globulin Procalcitonin Free T4 Free T3 Anti-ds DNA IgG Ab 04/22/21 04/22/21 04/22/21 17:17 17:17 17:26 WBC 15.4 H RBC 4.94 Hgb 15.4 Hct 46.4 MCV 93.9 MCH 31.2 MCHC 33.2 RDW 13.0 Plt Count 202 MPV 9.2 Neut % (Auto) 74.2 Lymph % (Auto) 16.9 Rock % (Auto) 7.5 Eos % (Auto) 0.6 Baso % (Auto) 0.3 Neut # (Auto) 11.42 H Lymph # (Auto) 2.6 Rock # (Auto) 1.2 H Eos # (Auto) 0.1 Baso # (Auto) 0.0 Nucleated RBC % (auto) 0 Nucleated RBCs # 0.0 PT 17.40 H INR 1.39 H APTT 55.8 H Fibrinogen Fibrin Degrad Products D-Dimer Specimen Type Sample Site ABG pH ABG pCO2 ABG pO2 ABG HCO3 ABG Base Excess [facility] Test Hematocrit Respiration Rate O2 Delivery Device SIMV FiO2 Tidal Volume PEEP Specimen Drawn By Clerical Administrator ID Crit Value Read Back Blood Gas Notified Time Sodium 134 L Potassium 3.9 Chloride 95 L Carbon Dioxide 27 Anion Gap 15.9 BUN 24 H Creatinine 1.4 H GFR Calculation 52.4 L Glucose 110 POC Glucose Calculated Osmolality 283 L Lactate Calcium 7.8 L Phosphorus Magnesium Total Bilirubin AST ALT Alkaline Phosphatase Creatine Kinase C-Reactive Protein NT-Pro-B Natriuret Pep Total Protein Albumin Globulin Procalcitonin Free T4 Free T3 Anti-ds DNA IgG Ab 04/22/21 04/22/21 04/22/21 21:45 21:45 21:45 WBC 13.8 H RBC 4.88 Hgb 15.3 Hct 46.3 MCV 94.9 H MCH 31.4 MCHC 33.0 RDW 12.9 Plt Count 217 MPV 9.4 Neut % (Auto) 73.1 Lymph % (Auto) 18.0 Rock % (Auto) 7.0 Eos % (Auto) 1.1 Baso % (Auto) 0.4 Neut # (Auto) 10.11 H Lymph # (Auto) 2.5 Rock # (Auto) 1.0 H Eos # (Auto) 0.2 Baso # (Auto) 0.1 Nucleated RBC % (auto) 0 Nucleated RBCs # 0.0 PT 17.20 H INR 1.36 H APTT 47.0 H Fibrinogen Fibrin Degrad Products D-Dimer Specimen Type Sample Site ABG pH ABG pCO2 ABG pO2 ABG HCO3 ABG Base Excess Duke Test Hematocrit Respiration Rate O2 Delivery Device SIMV FiO2 Tidal Volume PEEP Specimen Drawn By Clerical Administrator ID Crit Value Read Back Blood Gas Notified Time Sodium 134 L Potassium 3.7 Chloride 97 L Carbon Dioxide 23 Anion Gap 17.7 BUN 19 Creatinine 1.2 GFR Calculation 62.6 L Glucose 109 POC Glucose Calculated Osmolality 281 L Lactate Calcium 8.1 L Phosphorus Magnesium Total Bilirubin AST ALT Alkaline Phosphatase Creatine Kinase C-Reactive Protein NT-Pro-B Natriuret Pep Total Protein Albumin Globulin Procalcitonin Free T4 Free T3 Anti-ds DNA IgG Ab 04/23/21 04/23/21 04/23/21 02:00 02:00 02:00 WBC 13.8 H RBC 4.88 Hgb 15.0 Hct 45.7 MCV 93.6 MCH 30.7 MCHC 32.8 RDW 13.0 Plt Count 217 MPV 9.5 Neut % (Auto) 75.3 Lymph % (Auto) 17.2 Rock % (Auto) 5.3 Eos % (Auto) 1.4 Baso % (Auto) 0.4 Neut # (Auto) 10.38 H Lymph # (Auto) 2.4 Rock # (Auto) 0.7 Eos # (Auto) 0.2 Baso # (Auto) 0.1 Nucleated RBC % (auto) 0 Nucleated RBCs # 0.0 PT 17.10 H INR 1.35 H APTT 41.4 H Fibrinogen 316 Fibrin Degrad Products Neg, <10 D-Dimer 0.59 Specimen Type Sample Site ABG pH ABG pCO2 ABG pO2 ABG HCO3 ABG Base Excess [facility] Test Hematocrit Respiration Rate O2 Delivery Device SIMV FiO2 Tidal Volume PEEP Specimen Drawn By Clerical Administrator ID Crit Value Read Back Blood Gas Notified Time Sodium 133 L Potassium 3.7 Chloride 97 L Carbon Dioxide 24 Anion Gap 15.7 BUN 19 Creatinine 1.3 H GFR Calculation 57.1 L Glucose 162 H POC Glucose Calculated Osmolality 282 L Lactate Calcium 8.2 L Phosphorus 3.4 Magnesium 2.0 Total Bilirubin 1.2 AST 46 H ALT 68 H Alkaline Phosphatase 81 Creatine Kinase 103 C-Reactive Protein 48.3 H NT-Pro-B Natriuret Pep 5616 H Total Protein 5.4 L Albumin 3.3 L Globulin 2.1 Procalcitonin 1.58 H Free T4 1.35 Free T3 2.2 Anti-ds DNA IgG Ab 04/23/21 04/23/21 04/23/21 02:00 05:30 07:50 WBC RBC Hgb Hct MCV MCH MCHC RDW Plt Count MPV Neut % (Auto) Lymph % (Auto) Rock % (Auto) Eos % (Auto) Baso % (Auto) Neut # (Auto) Lymph # (Auto) Rock # (Auto) Eos # (Auto) Baso # (Auto) Nucleated RBC % (auto) Nucleated RBCs # PT INR APTT Fibrinogen Fibrin Degrad Products D-Dimer Specimen Type Arterial Sample Site Radial, right ABG pH 7.50 H ABG pCO2 31.1 L ABG pO2 129.0 H ABG HCO3 24.2 ABG Base Excess 1.9 [facility] Test Pos Hematocrit 49.2 Respiration Rate O2 Delivery Device Room air SIMV FiO2 21.0 Tidal Volume PEEP Specimen Drawn By Clerical Administrator ID Quinn Crit Value Read Back Blood Gas Notified Time Sodium Potassium Chloride Carbon Dioxide Anion Gap BUN Creatinine GFR Calculation Glucose POC Glucose 116 H Calculated Osmolality Lactate 2.2 Calcium Phosphorus Magnesium Total Bilirubin AST ALT Alkaline Phosphatase Creatine Kinase C-Reactive Protein NT-Pro-B Natriuret Pep Total Protein Albumin Globulin Procalcitonin Free T4 Free T3 Anti-ds DNA IgG Ab 04/23/21 04/23/21 04/23/21 11:59 17:21 22:09 WBC RBC Hgb Hct MCV MCH MCHC RDW Plt Count MPV Neut % (Auto) Lymph % (Auto) Rock % (Auto) Eos % (Auto) Baso % (Auto) Neut # (Auto) Lymph # (Auto) Rock # (Auto) Eos # (Auto) Baso # (Auto) Nucleated RBC % (auto) Nucleated RBCs # PT INR APTT Fibrinogen Fibrin Degrad Products D-Dimer Specimen Type Sample Site ABG pH ABG pCO2 ABG pO2 ABG HCO3 ABG Base Excess [facility] Test Hematocrit Respiration Rate O2 Delivery Device SIMV FiO2 Tidal Volume PEEP Specimen Drawn By Clerical Administrator ID Crit Value Read Back Blood Gas Notified Time Sodium Potassium Chloride Carbon Dioxide Anion Gap BUN Creatinine GFR Calculation Glucose POC Glucose 130 H 130 H 139 H Calculated Osmolality Lactate Calcium Phosphorus Magnesium Total Bilirubin AST ALT Alkaline Phosphatase Creatine Kinase C-Reactive Protein NT-Pro-B Natriuret Pep Total Protein Albumin Globulin Procalcitonin Free T4 Free T3 Anti-ds DNA IgG Ab 04/24/21 04/24/21 04/24/21 04:57 04:57 04:57 WBC 12.0 H RBC 4.76 Hgb 14.8 Hct 44.7 MCV 93.9 MCH 31.1 MCHC 33.1 RDW 12.8 Plt Count 214 MPV 9.8 Neut % (Auto) 71.9 Lymph % (Auto) 16.3 Rock % (Auto) 7.6 Eos % (Auto) 3.4 Baso % (Auto) 0.5 Neut # (Auto) 8.65 H Lymph # (Auto) 2.0 Rock # (Auto) 0.9 Eos # (Auto) 0.4 Baso # (Auto) 0.1 Nucleated RBC % (auto) 0 Nucleated RBCs # 0.0 PT 15.60 H INR 1.21 H APTT 35.4 Fibrinogen 416 Fibrin Degrad Products Neg, <10 D-Dimer 0.43 Specimen Type Sample Site ABG pH ABG pCO2 ABG pO2 ABG HCO3 ABG Base Excess [facility] Test Hematocrit Respiration Rate O2 Delivery Device SIMV FiO2 Tidal Volume PEEP Specimen Drawn By Clerical Administrator ID Crit Value Read Back Blood Gas Notified Time Sodium 132 L Potassium 3.6 Chloride 97 L Carbon Dioxide 25 Anion Gap 13.6 BUN 17 Creatinine 1.1 GFR Calculation 69.2 L Glucose 114 POC Glucose Calculated Osmolality 276 L Lactate Calcium 8.1 L Phosphorus 3.0 Magnesium 2.0 Total Bilirubin 1.1 AST 34 ALT 57 H Alkaline Phosphatase 78 Creatine Kinase 53 C-Reactive Protein 22.2 H NT-Pro-B Natriuret Pep 6133 H Total Protein 6.0 L Albumin 3.3 L Globulin 2.7 Procalcitonin 0.76 H Free T4 Free T3 Anti-ds DNA IgG Ab 04/24/21 04/24/21 04:57 08:21 WBC RBC Hgb Hct MCV MCH MCHC RDW Plt Count MPV Neut % (Auto) Lymph % (Auto) Rock % (Auto) Eos % (Auto) Baso % (Auto) Neut # (Auto) Lymph # (Auto) Rock # (Auto) Eos # (Auto) Baso # (Auto) Nucleated RBC % (auto) Nucleated RBCs # PT INR APTT Fibrinogen Fibrin Degrad Products D-Dimer Specimen Type Sample Site ABG pH ABG pCO2 ABG pO2 ABG HCO3 ABG Base Excess [facility] Test Hematocrit Respiration Rate O2 Delivery Device SIMV FiO2 Tidal Volume PEEP Specimen Drawn By Clerical Administrator ID Crit Value Read Back Blood Gas Notified Time Sodium Potassium Chloride Carbon Dioxide Anion Gap BUN Creatinine GFR Calculation Glucose POC Glucose 102 Calculated Osmolality Lactate 1.5 Calcium Phosphorus Magnesium Total Bilirubin AST ALT Alkaline Phosphatase Creatine Kinase C-Reactive Protein NT-Pro-B Natriuret Pep Total Protein Albumin Globulin Procalcitonin Free T4 Free T3 Anti-ds DNA IgG Ab Micro: Microbiology 04/21/21 17:15 Urine Culture - Final Urine Catheterized 04/21/21 11:16 Gram Stain - Final Sputum - Endotracheal Tube Aspirate Sputum Culture - Final Cardiac Studies: No Data to Display
[2021-04-24] MEDS: lidocaine 1% INJ 50 mL INJECTION (13:13)
[2021-04-24] MEDS: ceFAZolin 1,000 mg SDV 1000 MG IRRIGATION (13:14)
--- NOTE | 2021-04-24 14:04 | P.OP_ITS ---
Operative Report Date of procedure: April 24, 2021 Pre-op Diagnosis: Nonischemic cardiomyopathy with ventricular arrhythmia and cardiac arrest Post-op diagnosis: same Procedure Done: Automatic implantable cardiac defibrillator implantation Pathology: none sent Surgeon: Ortiz Castelan Anesthesia: MAC and Local Complications: None: Post procedure chest x-ray pending Findings: Fluoroscopy utilized for guidewire and lead advancement and positioning Condition: stable Disposition: ICU Brief History: Mr. Austin is a 56-year-old gentleman with nonischemic cardiomyopathy with an ejection fraction of 10 to 15% by most recent echocardiogram. He was admitted originally following cardiac arrest while at home and was found to be in ventricular fibrillation and underwent EMS resuscita tion and cardioversion. Due to his profound cardiomyopathy and ventricular arrhythmia, AICD implantation has been recommended. Details and risk of the procedure were carefully and frankly discussed. Appropriate consents have been reviewed and signed. Procedure: Procedure: Mr. Austin was taken to the OR suite and placed in the supine position over a shoulder roll. He received conscious sedation with continuous anesthesia monitoring by. His entire chest was sterilely prepped and draped. 1% lidocaine was infiltrated in the left subclavicular region. While in Trendelenburg position, utilizing modified seldinger technique, a guidewire was placed in the left subclavian vein. This was confirmed in position by fluoroscopy. Next, after infiltration with lidocaine, a subcutaneous pocket was created beginning from the exit point of the guidewire and extending laterally and inferiorly. Cautery was utilized to create the pocket just above the pectoralis musculature. Hemostasis was confirmed. An antibiotic-soaked sponge was placed in the wound. A dilator and tear-away sheath was placed over the guidewire and advanced under fluoroscopy. Guidewire and dilator were removed. Next using a combination of curved and straight stylettes, the right ventricular lead was placed in position by fluoroscopy. The distal screw was extended. Interrogation was then performed confirming appropriate parameters. The tear- away sheath was then removed and the ventricular lead was sewn to the floor of the subcutaneous pocket. Generator was brought into the field, and after confirmation of hemostasis in the subcutaneous pocket, the lead was connected to the generator with appropriate capture. The entire system was interrogated by fluoroscopy. Lead and generator were secured in the pocket. Sponge and needle count was correct. The wound was then closed in 2 layers of 3-0 Vicryl suture. Skin was reapproximated in a subcuticular manner with 4-0 Monocryl suture. A pressure dressing was applied. The left arm was placed in a sling. He had equal breath sounds bilaterally. He was then transferred back to the ICU, where chest x-ray is currently pending. I did residential substance abuse counselor with the family at the completion of the procedure. Following are the specifics of this system: Right ventricular lead is 62 cm and model [id number]. Serial number [id number] Ventricular lead had sensing of 7.1 mV with an impedance of 570 ohms. Threshold was 0.6 V [employer] generator: Model #[id number] Serial #:[id number]
--- NOTE | 2021-04-24 14:06 | ANE.PACU2 ---
Inpatient post-anesthesia follow up: Airway intact: Yes Vital signs: Temperature 96.5 F Pulse Rate [Monito r] 133 Pulse Rate 97 Respiratory Rate 26 Blood Pressure [Ri ght Arm] 125/93 Blood Pressure 119/103 Pulse Oximetry 94 Oxygen Delivery Me thod [ Room Air Current Rate & Del laverne] Oxygen Delivery Me thod Room Air Oxygen Flow Rate 15 Fraction of Inspir ed Oxygen 35 Hydration adequate: Yes Nausea and vomiting: No Pain level: 1 Mental status: Baseline
--- NOTE | 2021-04-24 14:08 | XR_ITS ---
WS: [id number] Exam: XR chest 1V portable [id number] Date/Time of Exam: 04/24/2021 2:08 PM Reason For Exam: Status post AICD implantation Comparison 04/23/2021. The lungs are clear and fully expanded. The heart is enlarged but unchanged in size. No pleural effus ions. Regional bony elements are intact. The mediastinum is not widened. An ICD now superimposes the left chest. XR/XR chest 1V portable [id number] IMPRESSION: 1. Cardiac enlargement. No acute cardiopulmonary process. 2. ICD placement from the left subclavicular approach as noted above. No compli cations.
--- NOTE | 2021-04-24 14:11 | PC.NURSE ---
Pt arrives back to ICU from OR, shoulder immobilizer in place.
[2021-04-24] MEDS: atorvastatin 40 mg Tablet PO (14:21)
[2021-04-24] MEDS: HYDROcodone-acetaminophen 5-325 mg Tablet 1 TAB PO (14:32)
--- NOTE | 2021-04-24 14:45 | PC.NURSE ---
Ginoht femoral central line discontinued. Cath tip intact. Pressure held until hemeostasis obtained. Gauze and bioclussive dressing applied. Pt and instructed pt needs to line supine at this time following CVL removal.
[2021-04-24 14:48] LABS: Anti-Nuclear Antibody Pattern Nuclear, Homogeneous; Anti-Nuclear Antibody Screen POSITIVE (NEGATIVE)
--- NOTE | 2021-04-24 16:00 | SUR.OPER ---
1350 report called to taya milner, questions answered, states ready to recieve pt.
--- NOTE | 2021-04-24 16:19 | PM.PN ---
Subjective Subjective: Interval history: Zach Austin is a 56 year old male a a past medical history of atrial fibrillation on Eliquis, h heart failure with reduced ejection fraction 29%, hypertension, history of left and right heart cath no obstructive CAD, currently with LifeVest, history of nonsustained V. tach, severe ISAC who presents to [facility] status post cardiac arrest. No acute events overnight. at bedside. Denies chest pain. Vitals okay Vitals/I&O/Wt Last Vital Signs Temp 97.8 F 04/24/21 14:30 Pulse 90 04/24/21 16:00 Resp 20 H 04/24/21 16:00 BP 129/75 04/24/21 16:00 Pulse Ox 94 04/24/21 16:00 04/24/21 04/24/21 04/24/21 06:59 14:59 22:59 Intake Total 205.07 / 425.07 420 / 420 Output Total 1700 / 1700 Balance 205.07 / -2524.93 -1280 / -1280 Physical Exam Const: COMMON NORMALS: no acute distress and average body habitus Neck/C-Spine: COMMON NORMALS: no JVD Chest: COMMONS NORMALS: normal inspection of the chest Cardio: COMMON NORMALS: no JVD and regular rate RATE: regular rate GI: COMMON NORMALS: Soft to palpation and non-tender PALPATION: Yes Soft to palpation Urinary Catheter Management^: Ramirez: Cath Placed During This Visit: yes, but has since been removed by the nurse Reason for Continuing Indwelling Catheter: Accurate Measurement of Urinary Output in Critically Ill Patients Urinary Catheter Date of Insertion: 04/21/21 Urinary Catheter Time of Insertion: 10:20 Date Urinary Catheter Removed: 04/23/21 Time Urinary Catheter Discontinued: 17:44 Data : 04/24/21 04:57 04/24/21 04:57 Micro: Microbiology 04/21/21 17:15 Urine Culture - Final Urine Catheterized A&P Assessment and plan (1) Cardiac arrest: Status: Acute (2) Coronary artery disease: Status: Acute Qualifiers: Coronary Disease-Associated Artery/Lesion type: jamul artery [place] vs. transplanted heart: jamul heart Associated angina: without angina Qualified Code(s): I25.10 - Atherosclerotic heart disease of jamul coronary artery without angina pectoris (3) Atypical pneumonia: Status: Acute (4) New onset atrial fibrillation: Status: Acute Additional A&P Information #cardiac arrest --extubated --off pressors --ECHO completed --asa, statin #Afib --rate controlled --continue amiodarone --lovenox #cardiomyopathy --lasix held --anticipate for AICD today #ATN --appreciate renal recs, #delerium --MS improved #abnormal cxr --pulm edema vs pna --on zosyn --repeat cxr no acute process DVT:Lovenox Attestations Medical Necessity Statement*: Zach Austin's hospital stay will require greater than 2 midnights for chf Coding Level of Care Code Acute Air Motor Repairer for Chg Fwd Diagnoses Cardiac arrest I46.9 Coronary artery disease I25.10 Coronary Disease-Associated Artery/Lesion type: jamul artery [place] vs. transplanted heart: jamul heart Associated angina: without angina Atypical pneumonia J18.9 New onset atrial fibrillation I48.91
--- NOTE | 2021-04-24 18:52 | PC.NURSE ---
Shift summary: Pt alert and oriented. His short term memory is poor, information needs repeated regularly. He had one brief run of Vtach this am, asymptomatic. Otherwise, VSS. This afternoon Medtronic Defibrillator insertion done. Right groin central line removed, in anticipation of bedrest restrictions being lifted tomorrow. He has a peripheral IV in Left AC. Pt has rested in bed with his eyes closed most of the afternoon. He ate entire dinner. Blood sugar checks and sliding scale discontinued tpday. Trazadone PRN started for insomnia. Pt uses urinal to void. has been at bedside assisting pt most of day.
--- NOTE | 2021-04-24 19:29 | PC.NURSE ---
Report given to VARGHESE Franklin.
[2021-04-25] VITALS (26 sets, daily range): BP systolic 112–142; BP diastolic 75–105; PULSE 86–119; RESP 4–29; TEMP -13.1–36.8; O2SAT 90–97
[2021-04-25] MEDS: HYDROcodone-acetaminophen 5-325 mg Tablet 1 TAB PO ×4 (00:13→20:57)
[2021-04-25] MEDS: pantoprazole 40 mg SDV IVP ×2 (01:38→12:55)
[2021-04-25] MEDS: amiodarone 200 mg Tablet 400 MG PO ×3 (04:28→20:52)
[2021-04-25] MEDS: piperacillin-tazobactam 3.375 GM in sodium chloride 0.9% (plus) 50 ML IV ×2 (05:47→14:49)
[2021-04-25 07:14] LABS: Basophils % 0.4 %; Eosinophils # 0.5 10^3/uL (0.0-0.8); Eosinophils % 4.7 %; Hemoglobin 14.7 g/dL (11.7-16.6); Lymphocytes # 1.8 10^3/uL (0.8-4.8); Lymphocytes % 19.1 %; Mean Corpuscular HGB Conc 32.7 g/dL (30.0-36.0); Mean Corpuscular Hemoglobin 30.8 pg (28.0-34.0); Mean Corpuscular Volume 94.1 fL (80-94); Mean Platelet Volume 10.5 fL (7.4-10.4); Monocytes # 0.9 10^3/uL (0.2-0.9); Monocytes % 9.3 %; Neutrophils # 6.39 10^3/uL (1.8-7.7); Neutrophils % 66.2 %; Nucleated Red Blood Cells % 0 %; Platelet Count 200 10^3/cmm (130-400); Red Blood Count 4.78 10^6/uL (4.1-5.3); Red Cell Distribution Width 12.9 % (12.1-15.1); White Blood Count 9.7 10^3/uL (4.0-10.0)
[2021-04-25 07:28] LABS: Alanine Aminotransferase 51 U/L (0-41); Albumin Level 3.2 g/dL (3.5-5.2); Alkaline Phosphatase 78 IU/L (40-130); Anion Gap 14.5 (5-19); Aspartate Amino Transferase 46 U/L (0-40); Blood Urea Nitrogen 15 mg/dL (6-20); Calcium 8.1 mg/dL (8.5-10.5); Carbon Dioxide 25 mmol/L (22-29); Chloride 100 mmol/L (98-107); Globulin 2.5 g/dL (1.3-4.6); Glomerular Filtration Rate 77.3 mL/min (90-130); Glucose 94 mg/dL (65-115); Osmolality Calculated 283 mOsm/kg (285-295); Potassium 3.5 mmol/L (3.5-5.1); Sodium 136 mmol/L (136-145); Total Bilirubin 0.9 mg/dL (0.15-1.2); Total Protein 5.7 g/dL (6.6-8.7)
--- NOTE | 2021-04-25 09:13 | P.PN_ITS ---
Subjective Subjective: Interval history: Patient is doing well. Had placement of ICD yesterday. Functioning appropriately. He is still intermittently tachycardic. Vitals/I&O/Wt Last Vital Signs Temp 97.8 F 04/25/21 04:00 Pulse 98 04/25/21 06:16 Resp 15 04/25/21 06:00 BP 116/91 04/25/21 05:00 Pulse Ox 93 04/25/21 05:00 04/24/21 04/25/21 04/25/21 22:59 06:59 14:59 Intake Total 600 / 1020 250 / 1270 Output Total 350 / 2050 Balance 250 / -1030 250 / -780 Physical Exam Narrative: EXAM NARRATIVE: GENERAL: Alert and oriented x 3 HEENT: Pupils equal round reactive to light. No pallor or icterus. NECK: central trachea, No JVD No carotid bruit. CARDIOVASCULAR SYSTEM: S1-S2 regular. No murmur rubs or gallops. RESPIRATORY SYSTEM: Decreased breath sound at bases. No wheezes rhonchi or rubs heard. No use of accessory muscles. ABDOMEN: Soft, nontender and nondistended. Normal bowel sounds present. EXTREMITIES: No cyanosis or clubbing. No edema. No signs of chronic venous insufficiency. NURSE FIRST AID: Patient is alert oriented SKIN: Normal turgor and temperature. Urinary Catheter Management^: Ramirez: Cath Placed During This Visit: yes, but has since been removed by the nurse Reason for Continuing Indwelling Catheter: Accurate Measurement of Urinary Output in Critically Ill Patients Urinary Catheter Date of Insertion: 04/21/21 Urinary Catheter Time of Insertion: 10:20 Date Urinary Catheter Removed: 04/23/21 Time Urinary Catheter Discontinued: 17:44 Data : 04/26/21 03:04 04/26/21 03:04 Micro: Microbiology 04/21/21 17:15 Urine Culture - Final Urine Catheterized A&P Assessment and plan (1) Atrial fibrillation: Status: Acute Qualifiers: Atrial fibrillation type: unspecified chronic Qualified Code(s): I48.20 - Chronic atrial fibrillation, unspecified (2) HFrEF (heart failure with reduced ejection fraction): Status: Acute (3) Non-ischemic cardiomyopathy: Status: Acute (4) Cardiac arrest: Status: Acute Patient has a history of nonischemic cardiomyopathy. He did not follow-up with our cardiology office as he was supposed to get a repeat echocardiogram in 3 months for evaluation for need of ICD. His cardiac catheterization recently did not reveal any significant coronary artery disease. He had a VT arrest. His EKG did not demonstrate ST elevation [place]. Continue amiodarone 400mg TID. Will add metoprolol 25mg bid and uptitrate as tolerated as heart rates are still elevated Patient has intermittent RVR episodes Patient had ICD placement yesterday and is functioning normal on check performed today. Thank you for involving us with care of this patient. We will continue to follow. Please call with questions. Attestations Medical Necessity Statement*: Care expected to cross 2 midnights. Coding Level of Care Code Acute Director Automotive for Geoff Sparrow Diagnoses Atrial fibrillation I48.20 Atrial fibrillation type: unspecified chronic HFrEF (heart failure with reduced ejection fraction) I50.20 Non-ischemic cardiomyopathy I42.8 Cardiac arrest I46.9
--- NOTE | 2021-04-25 09:18 | PC.CHAP ---
Pastoral Care Encounter/Spiritual Assessment Type of Contact [] Declined health center manager visit [] Patient/Family/Request visit [] Outpatient visit [] Follow-up visit [] Physician referral [] Code/Alert [x] Routine visit [] Staff referral [] Actively dying [] Patient sleeping [x] Family support [] [] Out of room [] Palliative care [] [] Receiving care in room [] Pre-surgical visit [] Trauma [] Long length of stay [x] ICU visit [] Other: Relational/Emotional Strength [] Patient feels connected with others/family/visitors/staff [] Distress [] Loneliness/isolation [] Abandonment Spirituality of Patient [x] Person of [place] [] Attends Bahai of their [place] [] Believes in Prayer [] Reads Bible or Yazdanism materials [] There are Spiritual issues to be addressed Promotions Executive Producer Interventions x[x] Prayer [x] Active listening [x] Non-anxious presence [x] Spiritual/emotional support [] Crisis/trauma care [] Spiritual counseling [] Bereavement support [] Provided bereavement packet [] Provided Bible/devotional materials [] Provided toy/stuffed animal, coloring book to patient or family member [] Provided Communion [] Anointing/[place] [] Salvation [x] Completed spiritual assessment [] Other: Impact on Illness or Injury [] Angry [] Fearful [] Anxious [] Often cries [] Exhaustion [] Unable to work [] Unable to attend nondenominational [] Unable to walk/stand [] Unable to read [] Unable to drive [] Unable to eat/drink [] Unable to sleep [] Unable to be with family [] Patient intubated [] Other: Summary surgery yesterday went well.. didnt rest very well, but had breakfast and looking forward to healing and returning home soon Time spent with patient 10 min
[2021-04-25] MEDS: aspirin 81 mg EC Tablet PO (09:20)
[2021-04-25] MEDS: FUROsemide 10 mg/mL SDV 4mL 40 MG IVP ×2 (09:21→09:24)
--- NOTE | 2021-04-25 09:25 | PC.NURSE ---
MAR delay related to caring for other patients.
--- NOTE | 2021-04-25 10:21 | PC.NURSE ---
Pacemaker/Defib check completed. Device functioning properly per [employer] rep. Unable to read ventricular threshhold due to a-fib. Report being faxed.
--- NOTE | 2021-04-25 12:29 | PM.PN ---
Subjective Subjective: Interval history: Patient was examined this morning, he sitting up in bed, is at bedside, status post pacemaker placement, he tells me that he has some left shoulder soreness, but other than that he is doing well, he has not had a bowel movement in 2 days, no chest pain, no palpitations, no shortness of breath, no lightheadedness, dizziness, has not really gotten up out of bed as of yet Vitals/I&O/Wt Last Vital Signs Temp 97.9 F 04/25/21 08:00 Pulse 115 H 04/25/21 10:00 Resp 22 H 04/25/21 10:00 BP 128/97 04/25/21 10:00 Pulse Ox 92 04/25/21 10:00 04/24/21 04/25/21 04/25/21 22:59 06:59 14:59 Intake Total 600 / 1020 250 / 1270 450 / 450 Output Total 350 / 2050 300 / 300 Balance 250 / -1030 250 / -780 150 / 150 Physical Exam Const: COMMON NORMALS: no acute distress ORIENTATION/CONSCIOUSNESS: Yes awake, Yes oriented to person, Yes oriented to place and Yes oriented to time Chest: OTHER: Left pacemaker site, wrapped in bandage, looks clean and dry Resp: COMMON NORMALS: normal respiratory effort, No retractions and clear to auscultation bilaterally AUSCULTATION: clear to auscultation bilaterally Cardio: COMMON NORMALS: regular rate, S1 normal heart sound present, S2 normal heart sound present and No murmurs present (Cardio) RATE: regular rate RHYTHM: abnormal rhythm HEART SOUNDS: S1 normal heart sound present and S2 normal heart sound present GI: COMMON NORMALS: Soft to palpation and non-tender INSPECTION: Yes normal to inspection and Yes abdominal distension AUSCULTATION: Yes normoactive bowel sounds PALPATION: Yes Soft to palpation Neuro: SENSORIUM/ORIENTATION: Yes oriented to person, Yes oriented to place and Yes oriented to time Urinary Catheter Management^: Ramirez: Cath Placed During This Visit: yes, but has since been removed by the nurse Reason for Continuing Indwelling Catheter: Accurate Measurement of Urinary Output in Critically Ill Patients Urinary Catheter Date of Insertion: 04/21/21 Urinary Catheter Time of Insertion: 10:20 Date Urinary Catheter Removed: 04/23/21 Time Urinary Catheter Discontinued: 17:44 Data : 04/25/21 04:21 04/25/21 04:21 Micro: Microbiology 04/21/21 17:15 Urine Culture - Final Urine Catheterized A&P Assessment and plan (1) Cardiac arrest: -- Status: Acute (2) Coronary artery disease: Status: Acute Qualifiers: Coronary Disease-Associated Artery/Lesion type: [place] artery [place] vs. transplanted heart: [place] heart Associated angina: without angina Qualified Code(s): I25.10 - Atherosclerotic heart disease of [place] coronary artery without angina pectoris (3) Atypical pneumonia: Status: Acute (4) New onset atrial fibrillation: Status: Acute Additional A&P Information #cardiac arrest --extubated --off pressors --ECHO completed shows EF of 10 to 15%, RV function severely reduced, biatrial enlargement --asa, statin #Afib --rate controlled --continue amiodarone --lovenox currently on hold after AICD placement, resume as per Dr. Castelan's recommendations #cardiomyopathy, EF 10 to 15% --lasix held, creatinine 1 --AICD placed today #Superficial left thrombophlebitis #ATN --Good urine output, creatinine 1 #Delirium --MS improved #Aspiration pneumonia --De-escalate of Zosyn to Augmentin --repeat cxr no acute process #Newly diagnosed type 2 diabetes mellitus, hemoglobin A1c 6.5, continue low-dose sliding scale, diabetic education DVT:Lovenox on hold, SCDs Plan for today PT OT, moved to cardiac stepdown unit, hopefully can discharge the next 2448 hrs. Attestations Medical Necessity Statement*: Patient requires hospitalization, for status post cardiac arrest, pulmonary edema, acute renal failure, status post ICD placement, critical care time spent over 35 minutes Coding Level of Care Code Acute Upset Welding Machine Operator for [facility] Fwd Diagnoses Cardiac arrest I46.9 Coronary artery disease I25.10 Coronary Disease-Associated Artery/Lesion type: [place] artery [place] vs. transplanted heart: [place] heart Associated angina: without angina Atypical pneumonia J18.9 New onset atrial fibrillation I48.91
[2021-04-25] MEDS: atorvastatin 40 mg Tablet PO (12:55)
--- NOTE | 2021-04-25 14:20 | PC.NURSE ---
Defibrillator wallet card and info given to .
--- NOTE | 2021-04-25 15:12 | PC.NURSE ---
Report faxed to [facility]
--- NOTE | 2021-04-25 15:53 | PC.NURSE ---
Pt transferred to [address] [place] [address]. Further report given to VARGHESE Michelle. All belongings with pt.
[2021-04-25] MEDS: amoxicillin-clav 875-125 mg Tablet 1 TAB PO (17:27)
[2021-04-25] MEDS: docusate sodium 100 mg Capsule PO (17:28)
[2021-04-25] MEDS: metoprolol tartrate 25 mg Tablet PO (23:40)
[2021-04-26] VITALS (12 sets, daily range): BP systolic 108–132; BP diastolic 66–103; PULSE 46–105; RESP 8–22; TEMP 36.4; O2SAT 94–99
[2021-04-26 04:03] LABS: Basophils # 0.1 10^3/uL (0.0-0.1); Basophils % 0.4 %; Eosinophils # 0.5 10^3/uL (0.0-0.8); Eosinophils % 4.3 %; Hematocrit 47.2 % (42.0-52.0); Hemoglobin 15.2 g/dL (11.7-16.6); Lymphocytes # 2.3 10^3/uL (0.8-4.8); Lymphocytes % 19.5 %; Mean Corpuscular HGB Conc 32.2 g/dL (30.0-36.0); Mean Corpuscular Volume 96.1 fL (80-94); Mean Platelet Volume 10.1 fL (7.4-10.4); Monocytes # 0.9 10^3/uL (0.2-0.9); Monocytes % 7.9 %; Neutrophils # 7.81 10^3/uL (1.8-7.7); Neutrophils % 67.5 %; Nucleated Red Blood Cells % 0 %; Platelet Count 206 10^3/cmm (130-400); Red Blood Count 4.91 10^6/uL (4.1-5.3); Red Cell Distribution Width 12.9 % (12.1-15.1); White Blood Count 11.6 10^3/uL (4.0-10.0)
[2021-04-26 04:25] LABS: Magnesium 2.3 mg/dL (1.7-2.3); Phosphorus 3.7 mg/dL (2.5-4.5)
[2021-04-26 04:32] LABS: Alanine Aminotransferase 51 U/L (0-41); Albumin Level 3.6 g/dL (3.5-5.2); Alkaline Phosphatase 86 IU/L (40-130); Anion Gap 14.4 (5-19); Aspartate Amino Transferase 43 U/L (0-40); Blood Urea Nitrogen 19 mg/dL (6-20); Calcium 8.2 mg/dL (8.5-10.5); Carbon Dioxide 27 mmol/L (22-29); Chloride 96 mmol/L (98-107); Globulin 2.6 g/dL (1.3-4.6); Glomerular Filtration Rate 69.2 mL/min (90-130); Glucose 99 mg/dL (65-115); Osmolality Calculated 280 mOsm/kg (285-295); Potassium 3.4 mmol/L (3.5-5.1); Sodium 134 mmol/L (136-145); Total Protein 6.2 g/dL (6.6-8.7)
[2021-04-26] MEDS: HYDROcodone-acetaminophen 5-325 mg Tablet 1 TAB PO ×3 (04:58→19:46)
[2021-04-26] MEDS: amiodarone 200 mg Tablet 400 MG PO ×3 (04:58→20:42)
--- NOTE | 2021-04-26 08:45 | P.PN_ITS ---
Subjective Subjective: Interval history: Patient is doing well. His heart rate is better controlled since starting metoprolol Vitals/I&O/Wt Last Vital Signs Temp 97.6 F 04/26/21 03:19 Pulse 92 04/26/21 08:16 Resp 16 04/26/21 08:16 BP 132/103 04/26/21 08:16 Pulse Ox 94 04/26/21 08:16 04/25/21 04/26/21 04/26/21 22:59 06:59 14:59 Intake Total 370 / 1320 236 / 236 Balance 370 / 620 236 / 236 Physical Exam Narrative: EXAM NARRATIVE: GENERAL: Alert and oriented x 3 HEENT: Pupils equal round reactive to light. No pallor or icterus. NECK: central trachea, No JVD No carotid bruit. CARDIOVASCULAR SYSTEM: S1-S2 regular. No murmur rubs or gallops. RESPIRATORY SYSTEM: Decreased breath sound at bases. No wheezes rhonchi or rubs heard. No use of accessory muscles. ABDOMEN: Soft, nontender and nondistended. Normal bowel sounds present. EXTREMITIES: No cyanosis or clubbing. No edema. No signs of chronic venous insufficiency. CHEESEMAKER HELPER: Patient is alert oriented SKIN: Normal turgor and temperature. Urinary Catheter Management^: Ramirez: Cath Placed During This Visit: yes, but has since been removed by the nurse Reason for Continuing Indwelling Catheter: Accurate Measurement of Urinary Output in Critically Ill Patients Urinary Catheter Date of Insertion: 04/21/21 Urinary Catheter Time of Insertion: 10:20 Date Urinary Catheter Removed: 04/23/21 Time Urinary Catheter Discontinued: 17:44 Data : 04/26/21 03:04 04/26/21 03:04 A&P Assessment and plan (1) Atrial fibrillation: Status: Acute Qualifiers: Atrial fibrillation type: unspecified chronic Qualified Code(s): I48.20 - Chronic atrial fibrillation, unspecified (2) HFrEF (heart failure with reduced ejection fraction): Status: Acute (3) Non-ischemic cardiomyopathy: Status: Acute (4) Cardiac arrest: Status: Acute Patient has a history of nonischemic cardiomyopathy. He did not follow-up with our cardiology office as he was supposed to get a repeat echocardiogram in 3 months for evaluation for need of ICD. His cardiac catheterization recently did not reveal any significant coronary artery disease. He had a VT arrest. His EKG did not demonstrate ST elevation [place]. Continue amiodarone 400mg TID. Uptitrate metoprolol as tolerated Patient has intermittent RVR episodes Patient had ICD placement on Thursday and is functioning normal on check performed yesterday His anticoagulation can be restarted tonight. Thank you for involving us with care of this patient. We will continue to follow. Please call with questions. Attestations Medical Necessity Statement*: Care expected to cross 2 midnights. Coding Level of Care Code Acute Student Success Counselor for g Fwd Diagnoses Atrial fibrillation I48.20 Atrial fibrillation type: unspecified chronic HFrEF (heart failure with reduced ejection fraction) I50.20 Non-ischemic cardiomyopathy I42.8 Cardiac arrest I46.9
[2021-04-26] MEDS: aspirin 81 mg EC Tablet PO (08:53)
[2021-04-26] MEDS: pantoprazole DR 40 mg Tablet PO (08:53)
[2021-04-26] MEDS: metoprolol tartrate 25 mg Tablet PO ×2 (08:53→20:42)
[2021-04-26] MEDS: docusate sodium 100 mg Capsule PO ×2 (08:53→17:49)
[2021-04-26] MEDS: amoxicillin-clav 875-125 mg Tablet 1 TAB PO ×2 (08:53→17:49)
[2021-04-26] MEDS: polyethylene glycol 3350 Pkt 17 gm PO (08:56)
[2021-04-26] MEDS: FUROsemide 10 mg/mL SDV 4mL 40 MG IVP ×2 (09:57→17:49)
--- NOTE | 2021-04-26 10:04 | PC.NUTR ---
Dietitian consult for newly dx DM2 nutrition therapy. Education initiated and materials provided, but unable to complete due to MD visit at same time. RD contact information provided. See full assessment for further details.
--- NOTE | 2021-04-26 11:16 | PM.PN ---
Subjective Subjective: Interval history: Patient was seen this morning, he is on 2 L, he tells me that he supposed to use a CPAP at home, but stopped using it for some period of time, due to mask issues, but now adamant that he will use a CPAP, no fevers, no chills, no nausea, no vomiting, no chest pain, overall is doing better Vitals/I&O/Wt Last Vital Signs Temp 97.6 F 04/26/21 03:19 Pulse 92 04/26/21 08:16 Resp 16 04/26/21 08:16 BP 132/103 04/26/21 08:16 Pulse Ox 94 04/26/21 08:16 04/25/21 04/26/21 04/26/21 22:59 06:59 14:59 Intake Total 370 / 1320 236 / 236 Balance 370 / 620 236 / 236 Physical Exam Narrative: EXAM NARRATIVE: A bit sleepy this morning Chest: OTHER: Pacemaker site looks clean and dry Cardio: COMMON NORMALS: regular rate, regular rhythm, S1 normal heart sound present and S2 normal heart sound present RATE: regular rate RHYTHM: regular rhythm HEART SOUNDS: S1 normal heart sound present, S2 normal heart sound present and no murmurs GI: COMMON NORMALS: Normal to inspection, nondistended, normoactive bowel sounds present, Soft to palpation and non-tender PALPATION: Yes Soft to palpation Extremity: COMMON NORMALS: no pedal edema Urinary Catheter Management^: Ramirez: Cath Placed During This Visit: yes, but has since been removed by the nurse Reason for Continuing Indwelling Catheter: Accurate Measurement of Urinary Output in Critically Ill Patients Urinary Catheter Date of Insertion: 04/21/21 Urinary Catheter Time of Insertion: 10:20 Date Urinary Catheter Removed: 04/23/21 Time Urinary Catheter Discontinued: 17:44 Data : 04/26/21 03:04 04/26/21 03:04 A&P Assessment and plan (1) Cardiac arrest: -- Status: Acute (2) Coronary artery disease: Status: Acute Qualifiers: Coronary Disease-Associated Artery/Lesion type: [place] artery [place] vs. transplanted heart: [place] heart Associated angina: without angina Qualified Code(s): I25.10 - Atherosclerotic heart disease of [place] coronary artery without angina pectoris (3) Atypical pneumonia: Status: Acute (4) New onset atrial fibrillation: Status: Acute Additional A&P Information #cardiac arrest --extubated --off pressors --ECHO completed shows EF of 10 to 15%, RV function severely reduced, biatrial enlargement --asa, statin --Status post pacemaker placement --Still on 2 L nasal cannula, is -300 mL since admission, diuretic therapy, wean as tolerated -PT OT, #Afib --rate controlled --continue amiodarone --resume Eliquis tonight #cardiomyopathy, EF 10 to 15% --Hold Lasix, monitor creatinine --AICD placed #Superficial left thrombophlebitis #ATN --Good urine output, creatinine 1 #Delirium --MS improved #Aspiration pneumonia --De-escalate of Zosyn to Augmentin --repeat cxr no acute process #Newly diagnosed type 2 diabetes mellitus, hemoglobin A1c 6.5, continue low-dose sliding scale, diabetic education DVT resume Eliquis tonight, SCDs Plan for today PT OT, resume Eliquis tonight, start CPAP tonight, hopefully can discharge in the next 24 hours Attestations Medical Necessity Statement*: Patient requires hospitalization, for cardiac arrest, A. fib, cardiomyopathy, Coding Level of Care Code Acute Retaining Room Cutter for [facility] Diagnoses Cardiac arrest I46.9 Coronary artery disease I25.10 Coronary Disease-Associated Artery/Lesion type: [place] artery [place] vs. transplanted heart: [place] heart Associated angina: without angina Atypical pneumonia J18.9 New onset atrial fibrillation I48.91
--- NOTE | 2021-04-26 13:57 | XR_ITS ---
WS: [id number] Exam: XR chest 1V portable [id number] Date/Time of Exam: 04/26/2021 2:10 PM Reason For Exam: Decrease spO2 level Comparison 04/24/2021. The lungs are clear and fully expanded. Cardiac enlargement unchanged. An ICD superimposes the left c hest. Monitoring leads are noted over the chest. No pleural effusion. The mediastinum and bony thorax are unremarkable. XR/XR chest 1V portable [id number] IMPRESSION: 1. Cardiac enlargement unchanged. 2. No acute process noted.
[2021-04-26 14:14] LABS: ABG PCO2 38.2 mmHg (35-45); ABG PH Result 7.43 (7.35-7.45); Arterial Blood Gas Hematocrit 46.1 % (42-52); Base Excess ABG 0.7 mmol/L (-2.0-2.0); Blood Gas Allen Test Pos; Blood Gas Sample Type Arterial; Carboxyhemoglobin 0.7 %THgb (0.4-20.1); HGB O2 Sat 96.1 % (95-100); Ionized Calcium Level - ABG 1.1 mmol/L (1.1-1.4); Methemoglobin < 0.0 % (0.4-1.5); Oxygen Saturation ABG 96.2; PO2 ABG 80.4 mmHg (80.0-100.0); Potassium Level - ABG 3.4 mmol/L (3.5-5.0)
[2021-04-26 14:15] LABS: Alveolar-Arterial Oxygen Gradi 9.2 mmHg (5-10); Blood Gas Operator Identificat MONRO; Blood Gas Sample Site Brachial, left; Oxygen Device NC
[2021-04-26] MEDS: atorvastatin 40 mg Tablet PO (14:25)
[2021-04-26 14:44] LABS: NT Pro B Type Natriuretic Pept 8424 pg/mL (0-125)
[2021-04-26] MEDS: potassium chloride ER 20 mEq Tablet PO (17:49)
[2021-04-26] MEDS: apixaban 5 mg Tablet PO (17:49)
--- NOTE | 2021-04-26 23:14 | PC.NURSE ---
Patient called this nurse down to his room 30-45 minutes prior to this nuses note entry. Pt had removed his c-pap mask and was very aggitated and requested that the RT return because he states that he was not properly instructed on how to use the c-pap. RT to the room to re-educate the patient on how to use the face mask. Pt states that he doesn't want to put the mask back on at this time and that he wants to catch his breath before putting the mask back on. This nurse was sitting in the patient's room to monitor the patient and waiting for the patient to request to put the mask back on and the patient requested that this nurse leave his room because my presence was distracting him from being able to gather his thoughts and channel his energy. Pt was placed back on nasal canula at 2lpm and given his call light and instructed to notify this nurse if and when he is ready to reattempt the c-pap.
[2021-04-26 23:18] LABS: ANCA Interp Negative (Negative)
--- NOTE | 2021-04-26 23:37 | PC.NURSE ---
The patient notified the TRACTOR ENGINE ASSEMBLER that he was ready to be placed back on the c-pap. This nurse went down to the patient's room to attempt to assist him with placing the mask back on and the patient stated that he really doesn't want me in his room and that there is just a certain thresh-hold that you can take with people and that I am behaving strangely around him. At this time I have reported this to Smita charge nurse and she will be assuming the care for this patient for the duration of the shift.
--- NOTE | 2021-04-26 23:43 | PC.NURSE ---
Assumed care of patient. VARGHESE Ortega. reports that patient does not want him back in the room. Patient does not indicate as to why at this time. Patient remains pleasant and cooperative.
[2021-04-27] VITALS (12 sets, daily range): BP systolic 111–144; BP diastolic 79–96; PULSE 78–99; RESP 15–26; TEMP 36.3–36.6; O2SAT 90–98
--- NOTE | 2021-04-27 00:25 | PC.NURSE ---
Addendum entered by Smita Colin RN 04/27/21 00:28: NC placed with 2L of oxygen applied per patient request. Original Note: Patient fighting mask with his cpap. Patient unable to sleep with mask on. Discussed need for cpap. Patient expressed understanding. Patient stated, I would like to wait for Nap time. It is difficult to adjust when trying to sleep at night. Informed RT Vibha.
--- NOTE | 2021-04-27 00:41 | PC.NURSE ---
Patient has continuous pulse oximeter for cpap qualifications. Patient will not leave cpap on and is complaining that the pulse ox machine keeps alarming. He is not being compliant with this study. Has a trazadone ordered but will not take any medications. He will NOT be compliant with cpap. Patient requesting to have the pulse oximeter turned off. Informed Dr Pettit of the situation. Informed patient's spouse of difficulties. is understanding.
--- NOTE | 2021-04-27 01:00 | PC.NURSE ---
Patient is now agreeable to try the trazodone and give the cpap a chance.
[2021-04-27] MEDS: trazodone 50 mg Tablet PO ×2 (01:02→20:48)
--- NOTE | 2021-04-27 03:06 | PC.NURSE ---
Patient resting with eyes closed, cpap in place.
[2021-04-27] MEDS: amiodarone 200 mg Tablet 400 MG PO ×3 (04:52→20:48)
[2021-04-27] MEDS: FUROsemide 10 mg/mL SDV 4mL 40 MG IVP ×2 (04:52→18:20)
[2021-04-27] MEDS: apixaban 5 mg Tablet PO ×2 (04:52→18:19)
[2021-04-27 06:00] LABS: Basophils # 0.1 10^3/uL (0.0-0.1); Basophils % 0.7 %; Eosinophils # 0.3 10^3/uL (0.0-0.8); Eosinophils % 2.5 %; Hematocrit 45.2 % (42.0-52.0); Hemoglobin 14.9 g/dL (11.7-16.6); Lymphocytes # 2.3 10^3/uL (0.8-4.8); Lymphocytes % 21.3 %; Mean Corpuscular Hemoglobin 30.8 pg (28.0-34.0); Mean Corpuscular Volume 93.6 fL (80-94); Monocytes # 0.9 10^3/uL (0.2-0.9); Monocytes % 8.2 %; Neutrophils # 7.07 10^3/uL (1.8-7.7); Neutrophils % 66.7 %; Nucleated Red Blood Cells % 0 %; Platelet Count 193 10^3/cmm (130-400); Red Blood Count 4.83 10^6/uL (4.1-5.3); Red Cell Distribution Width 12.9 % (12.1-15.1); White Blood Count 10.6 10^3/uL (4.0-10.0)
[2021-04-27 06:16] LABS: Alanine Aminotransferase 60 U/L (0-41); Albumin Level 3.6 g/dL (3.5-5.2); Alkaline Phosphatase 80 IU/L (40-130); Aspartate Amino Transferase 54 U/L (0-40); Blood Urea Nitrogen 27 mg/dL (6-20); Calcium 8.1 mg/dL (8.5-10.5); Carbon Dioxide 22 mmol/L (22-29); Chloride 97 mmol/L (98-107); Globulin 2.5 g/dL (1.3-4.6); Glomerular Filtration Rate 69.2 mL/min (90-130); Glucose 123 mg/dL (65-115); Magnesium 2.2 mg/dL (1.7-2.3); Osmolality Calculated 284 mOsm/kg (285-295); Sodium 134 mmol/L (136-145); Total Bilirubin 1.2 mg/dL (0.15-1.2); Total Protein 6.1 g/dL (6.6-8.7)
[2021-04-27 06:27] LABS: Anion Gap 19.2 (5-19); Potassium 4.2 mmol/L (3.5-5.1)
[2021-04-27] MEDS: aspirin 81 mg EC Tablet PO (08:58)
[2021-04-27] MEDS: pantoprazole DR 40 mg Tablet PO (08:58)
[2021-04-27] MEDS: docusate sodium 100 mg Capsule PO ×2 (08:58→18:19)
[2021-04-27] MEDS: metoprolol tartrate 25 mg Tablet PO ×2 (09:04→20:48)
[2021-04-27] MEDS: amoxicillin-clav 875-125 mg Tablet 1 TAB PO ×2 (09:08→18:18)
--- NOTE | 2021-04-27 09:25 | PM.PN ---
Subjective Subjective: Interval history: Patient becomes very short of breath with minimal activity. Vitals/I&O/Wt Last Vital Signs Temp 97.9 F 04/27/21 07:52 Pulse 85 04/27/21 07:52 Resp 19 H 04/27/21 07:52 BP 111/84 04/27/21 07:52 Pulse Ox 98 04/27/21 07:52 04/26/21 04/27/21 04/27/21 22:59 06:59 14:59 Intake Total 980 / 1576 120 / 1696 Output Total 400 / 600 200 / 800 500 / 500 Balance 580 / 976 -80 / 896 -500 / -500 Physical Exam Narrative: EXAM NARRATIVE: GENERAL: Alert and oriented x 3 HEENT: Pupils equal round reactive to light. No pallor or icterus. NECK: central trachea, No JVD No carotid bruit. CARDIOVASCULAR SYSTEM: S1-S2 regular. No murmur rubs or gallops. RESPIRATORY SYSTEM: Decreased breath sound at bases. No wheezes rhonchi or rubs heard. No use of accessory muscles. ABDOMEN: Soft, nontender and nondistended. Normal bowel sounds present. EXTREMITIES: No cyanosis or clubbing. No edema. No signs of chronic venous insufficiency. DELIVERY ROOM CLERK: Patient is alert oriented SKIN: Normal turgor and temperature. Urinary Catheter Management^: Ramirez: Cath Placed During This Visit: yes, but has since been removed by the nurse Reason for Continuing Indwelling Catheter: Accurate Measurement of Urinary Output in Critically Ill Patients Urinary Catheter Date of Insertion: 04/21/21 Urinary Catheter Time of Insertion: 10:20 Date Urinary Catheter Removed: 04/23/21 Time Urinary Catheter Discontinued: 17:44 Data : 04/28/21 03:42 04/28/21 03:42 Micro: Microbiology 04/21/21 12:10 Blood Culture - Final Blood NO GROWTH AFTER 5 DAYS 04/21/21 12:05 Blood Culture - Final Blood NO GROWTH AFTER 5 DAYS A&P Assessment and plan (1) Atrial fibrillation: Status: Acute Qualifiers: Atrial fibrillation type: unspecified chronic Qualified Code(s): I48.20 - Chronic atrial fibrillation, unspecified (2) HFrEF (heart failure with reduced ejection fraction): Status: Acute (3) Non-ischemic cardiomyopathy: Status: Acute (4) Cardiac arrest: Status: Acute Patient has a history of nonischemic cardiomyopathy. He did not follow-up with our cardiology office as he was supposed to get a repeat echocardiogram in 3 months for evaluation for need of ICD. His cardiac catheterization recently did not reveal any significant coronary artery disease. He had a VT arrest. His EKG did not demonstrate ST elevation [place]. Continue amiodarone 400mg TID. Uptitrate metoprolol as tolerated Heart rate is better controlled. Patient has significant exertional symptoms. Will need to monitor for now. Patient had ICD placement on Thursday and is functioning normal on check performed yesterday His anticoagulation can be restarted tonight. Thank you for involving us with care of this patient. We will continue to follow. Please call with questions. Attestations Medical Necessity Statement*: Care expected to cross 2 midnights. Coding Level of Care Code Acute Prepress Technician for Geoff Sparrow Diagnoses Atrial fibrillation I48.20 Atrial fibrillation type: unspecified chronic HFrEF (heart failure with reduced ejection fraction) I50.20 Non-ischemic cardiomyopathy I42.8 Cardiac arrest I46.9
[2021-04-27] MEDS: metOLazone 5 MG Tablet 10 MG PO (09:49)
[2021-04-27] MEDS: atorvastatin 40 mg Tablet PO (13:23)
--- NOTE | 2021-04-27 14:33 | P.PN_ITS ---
Subjective Subjective: Interval history: This morning patient was examined, patient is and nurse report that during the day yesterday, there was intermittent times in which patient would become pale, diaphoretic, with blue discoloration of his mouth, nares years, he would feel short of breath, he would desat, but was spontaneously resolved, this happened a couple times, not necessarily ass ociate with exertion, he does report some shortness of breath this morning, remains on 2 L, overall doing better, no chest pain, no palpitations, Vitals/I&O/Wt Last Vital Signs Temp 97.3 F L 04/27/21 10:49 Pulse 85 04/27/21 10:49 Resp 26 H 04/27/21 10:49 BP 120/79 04/27/21 10:49 Pulse Ox 96 04/27/21 10:49 04/26/21 04/27/21 04/27/21 22:59 06:59 14:59 Intake Total 980 / 1576 120 / 1696 120 / 120 Output Total 400 / 600 200 / 800 680 / 680 Balance 580 / 976 -80 / 896 -560 / -560 Physical Exam Const: COMMON NORMALS: no acute distress and patient oriented x3 HENMT: COMMON NORMALS: normocephalic HEAD & SCALP: normocephalic Resp: COMMON NORMALS: normal respiratory effort, No retractions, No use of accessory muscles and clear to auscultation bilaterally AUSCULTATION: clear to auscultation bilaterally Cardio: COMMON NORMALS: regular rate, regular rhythm, S1 normal heart sound present and S2 normal heart sound present RATE: regular rate RHYTHM: regular rhythm HEART SOUNDS: S1 normal heart sound present and S2 normal heart sound present GI: COMMON NORMALS: Soft to palpation and non-tender INSPECTION: Yes normal to inspection AUSCULTATION: Yes normoactive bowel sounds PALPATION: Yes Soft to palpation Extremity: COMMON NORMALS: no calf tenderness and no pedal edema Neuro: COMMON NORMALS: patient oriented x3 Psych: COMMON NORMALS: mental status grossly normal Urinary Catheter Management^: Ramirez: Cath Placed During This Visit: yes, but has since been removed by the nurse Reason for Continuing Indwelling Catheter: Accurate Measurement of Urinary Output in Critically Ill Patients Urinary Catheter Date of Insertion: 04/21/21 Urinary Catheter Time of Insertion: 10:20 Date Urinary Catheter Removed: 04/23/21 Time Urinary Catheter Discontinued: 17:44 Data : 04/27/21 05:49 04/27/21 05:49 Micro: Microbiology 04/21/21 12:10 Blood Culture - Final Blood NO GROWTH AFTER 5 DAYS 04/21/21 12:05 Blood Culture - Final Blood NO GROWTH AFTER 5 DAYS A&P Assessment and plan (1) Cardiac arrest: -- Status: Acute (2) Coronary artery disease: Status: Acute Qualifiers: Coronary Disease-Associated Artery/Lesion type: [place] artery [place] vs. transplanted heart: makah heart Associated angina: without angina Qualified Code(s): I25.10 - Atherosclerotic heart disease of makah coronary artery without angina pectoris (3) Atypical pneumonia: Status: Acute (4) New onset atrial fibrillation: Status: Acute Additional A&P Information #cardiac arrest --extubated --off pressors --ECHO completed shows EF of 10 to 15%, RV function severely reduced, biatrial enlargement --asa, statin --Status post pacemaker placement --Still on 2 L nasal cannula, due to increased shortness of breath, increase Lasix to 40 IV twice daily, add metolazone -PT OT, #Afib --rate controlled --continue amiodarone --Resumed Eliquis #cardiomyopathy, EF 10 to 15% --On Lasix --AICD placed #Superficial left thrombophlebitis #ATN --Good urine output, creatinine 1 #Delirium --MS improved #Aspiration pneumonia --De-escalate of Zosyn to Augmentin --repeat cxr no acute process #Newly diagnosed type 2 diabetes mellitus, hemoglobin A1c 6.5, continue low-dose sliding scale, diabetic education Continue CPAP DVT Eliquis s Plan for today PT OT, CPAP, increased diuretic therapy Attestations Medical Necessity Statement*: Patient requires hospitalization for worsening shortness of breath, cardiac arrest, A. 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 transplanted heart: makah heart Associated angina: without angina Atypical pneumonia J18.9 New onset atrial fibrillation I48.91
[2021-04-27 17:48] LABS: Blood Urea Nitrogen 30 mg/dL (6-20); Calcium 8.3 mg/dL (8.5-10.5); Carbon Dioxide 21 mmol/L (22-29); Chloride 98 mmol/L (98-107); Glomerular Filtration Rate 52.4 mL/min (90-130); Glucose 143 mg/dL (65-115); Magnesium 2.1 mg/dL (1.7-2.3); Osmolality Calculated 287 mOsm/kg (285-295); Sodium 134 mmol/L (136-145)
[2021-04-27 17:55] LABS: Anion Gap 18.9 (5-19); Potassium 3.9 mmol/L (3.5-5.1)
[2021-04-27] MEDS: potassium chloride ER 20 mEq Tablet 40 MEQ PO (18:19)
--- NOTE | 2021-04-27 19:18 | PC.NURSE ---
Received report from VARGHESE Jj. Patient up to chair with spouse at bedside. Discussed plan for the night. Patient agreeable to use cpap tonight as long as he does not have to have the pulse-oximetry beeping all night . Patient requesting to have trazodone given in conjuction with cpap placement. Patient and spouse verbalized complete understanding. No distress observed. Patient only c/o mild pain/discomfort with deep breathing. Denies need for pain control at this time.
[2021-04-28 03:37] VITALS: BP 139/91; PULSE 80; RESP 24; TEMP 36.4; O2SAT 99
[2021-04-28 04:08] LABS: Basophils # 0.1 10^3/uL (0.0-0.1); Basophils % 0.6 %; Eosinophils # 0.4 10^3/uL (0.0-0.8); Hematocrit 45.4 % (42.0-52.0); Hemoglobin 15.2 g/dL (11.7-16.6); Lymphocytes # 2.3 10^3/uL (0.8-4.8); Lymphocytes % 20.8 %; Mean Corpuscular HGB Conc 33.5 g/dL (30.0-36.0); Mean Corpuscular Hemoglobin 31.2 pg (28.0-34.0); Mean Corpuscular Volume 93.2 fL (80-94); Monocytes # 0.9 10^3/uL (0.2-0.9); Monocytes % 8.3 %; Neutrophils # 7.19 10^3/uL (1.8-7.7); Neutrophils % 65.7 %; Nucleated Red Blood Cells % 0 %; Platelet Count 217 10^3/cmm (130-400); Red Blood Count 4.87 10^6/uL (4.1-5.3); Red Cell Distribution Width 12.8 % (12.1-15.1)
[2021-04-28 04:33] LABS: Alanine Aminotransferase 53 U/L (0-41); Albumin Level 3.8 g/dL (3.5-5.2); Alkaline Phosphatase 84 IU/L (40-130); Anion Gap 17.9 (5-19); Aspartate Amino Transferase 36 U/L (0-40); Blood Urea Nitrogen 29 mg/dL (6-20); Calcium 8.9 mg/dL (8.5-10.5); Carbon Dioxide 25 mmol/L (22-29); Chloride 99 mmol/L (98-107); Creatinine Clr Calc Pharmacy 76.0989; Globulin 2.6 g/dL (1.3-4.6); Glomerular Filtration Rate 62.6 mL/min (90-130); Glucose 98 mg/dL (65-115); Magnesium 2.2 mg/dL (1.7-2.3); Osmolality Calculated 292 mOsm/kg (285-295); Phosphorus 3.5 mg/dL (2.5-4.5); Potassium 3.9 mmol/L (3.5-5.1); Sodium 138 mmol/L (136-145); Total Bilirubin 1.1 mg/dL (0.15-1.2); Total Protein 6.4 g/dL (6.6-8.7)
[2021-04-28] MEDS: FUROsemide 10 mg/mL SDV 4mL 40 MG IVP (05:09)
[2021-04-28] MEDS: apixaban 5 mg Tablet PO (05:09)
[2021-04-28] MEDS: amiodarone 200 mg Tablet 400 MG PO (05:09)
[2021-04-28 05:39] VITALS: PULSE 78
[2021-04-28 07:24] VITALS: BP 112/85; PULSE 77; RESP 21; TEMP 36.7; O2SAT 94
[2021-04-28] MEDS: polyethylene glycol 3350 Pkt 17 gm PO (09:30)
[2021-04-28] MEDS: aspirin 81 mg EC Tablet PO (09:31)
[2021-04-28] MEDS: potassium chloride ER 20 mEq Tablet 40 MEQ PO (09:31)
[2021-04-28] MEDS: metoprolol tartrate 25 mg Tablet PO (09:32)
[2021-04-28] MEDS: docusate sodium 100 mg Capsule PO (09:32)
[2021-04-28] MEDS: amoxicillin-clav 875-125 mg Tablet 1 TAB PO (09:32)
[2021-04-28] MEDS: pantoprazole DR 40 mg Tablet PO (09:32)
--- NOTE | 2021-04-28 10:03 | PM.PN ---
Subjective Subjective: Interval history: Patient is doing better. Still has shortness of breath but ambulating today Vitals/I&O/Wt Last Vital Signs Temp 98.0 F 04/28/21 07:24 Pulse 77 04/28/21 07:24 Resp 21 H 04/28/21 07:24 BP 112/85 04/28/21 07:24 Pulse Ox 94 04/28/21 07:24 04/27/21 04/28/21 04/28/21 22:59 06:59 14:59 Intake Total 240 / 360 240 / 600 118 / 118 Output Total 1150 / 1830 600 / 2430 800 / 800 Balance -910 / -1470 -360 / -1830 -682 / -682 Physical Exam Narrative: EXAM NARRATIVE: GENERAL: Alert and oriented x 3 HEENT: Pupils equal round reactive to light. No pallor or icterus. NECK: central trachea, No JVD No carotid bruit. CARDIOVASCULAR SYSTEM: S1-S2 regular. No murmur rubs or gallops. RESPIRATORY SYSTEM: Decreased breath sound at bases. No wheezes rhonchi or rubs heard. No use of accessory muscles. ABDOMEN: Soft, nontender and nondistended. Normal bowel sounds present. EXTREMITIES: No cyanosis or clubbing. No edema. No signs of chronic venous insufficiency. FINANCIAL AIDS OFFICER: Patient is alert oriented SKIN: Normal turgor and temperature. Urinary Catheter Management^: Ramirez: Cath Placed During This Visit: yes, but has since been removed by the nurse Reason for Continuing Indwelling Catheter: Accurate Measurement of Urinary Output in Critically Ill Patients Urinary Catheter Date of Insertion: 04/21/21 Urinary Catheter Time of Insertion: 10:20 Date Urinary Catheter Removed: 04/23/21 Time Urinary Catheter Discontinued: 17:44 Data : 04/28/21 03:42 04/28/21 03:42 A&P Assessment and plan (1) HFrEF (heart failure with reduced ejection fraction): Status: Acute (2) Atrial fibrillation: Status: Acute Qualifiers: Atrial fibrillation type: unspecified chronic Qualified Code(s): I48.20 - Chronic atrial fibrillation, unspecified (3) Non-ischemic cardiomyopathy: Status: Acute (4) Cardiac arrest: Status: Resolved Patient has a history of nonischemic cardiomyopathy. He did not follow-up with our cardiology office as he was supposed to get a repeat echocardiogram in 3 months for evaluation for need of ICD. His cardiac catheterization recently did not reveal any significant coronary artery disease. He had a VT arrest. His EKG did not demonstrate ST elevation DE. Continue amiodarone. Can be downtitrated now. Uptitrate metoprolol as tolerated Heart rate is better controlled. Heart rate and symptoms better today Patient had ICD placement on Thursday and is functioning normal on check performed Continue anticoagulation Thank you for involving us with care of this patient. Patient is stable to be discharged today. Please call with questions. Attestations Medical Necessity Statement*: Care expected to cross 2 midnights. 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
--- NOTE | 2021-04-28 10:47 | PM.DCS ---
Discharge Providers Date of Admission: 04/21/21 11:19 Date of Discharge: April 28, 2021 Attending Provider at Admission: Param Montague MD Attending Provider at Discharge: Param Montague MD Primary Care Provider: Barbi Mendenhall MD Diagnoses at Discharge Discharge Diagnosis (1) Atrial fibrillation: Status: Acute Qualifiers: Atrial fibrillation type: unspecified chronic Qualified Code(s): I48.20 - Chronic atrial fibrillation, unspecified (2) HFrEF (heart failure with reduced ejection fraction): Status: Acute (3) Non-ischemic cardiomyopathy: Status: Acute (4) Cardiac arrest: Status: Acute Permanent problem details: VT arrest. He had asystole later. (5) Type 2 diabetes mellitus: Status: Acute Reason for Visit Reason for Visit: POST CPR Hospital Course Hospital Course Zach Austin is a 56 year old male a a past medical history of atrial fibrillation on Eliquis, h heart failure with reduced ejection fraction 29%, hypertension, history of left and right heart cath no obstructive CAD, currently with LifeVest, history of nonsustained V. tach, severe ISAC who presents to [facility] status post cardiac arrest. Patient was admitted to [facility] for VT arrest with acute respiratory failure, acute renal failure, acute liver failure secondary to ventricular arrhythmia, pulmonary edema. Received CPR and resuscitation in the field, intubated, placed on sedation protocol, received Lasix, placed on amiodarone drip, heparin drip, placed on pressors, cardiology was consulted, echo showed an EF of 10 to 15%, right ventricle function severely reduced, biatrial large man. Monitored in the ICU. Patient self extubated himself overnight, was clinically monitored, did well for respiratory standpoint. Patient received a pacemaker by Dr. Castelan. Was clinically monitored as inpatient, diuresis, transition to metoprolol and amiodarone, moved to CSU, ambulating without significant symptomatology. Discharged with close follow-up with cardiology as outpatient, [facility] For atrial fibrillation patient was discharged on amiodarone 400 mg twice daily, follow with cardiology to down titrate amiodarone, Toprol 25 mg twice daily, resume Eliquis cardiomyopathy, EF 10 to 15%, discharged on Lasix 40 twice daily, with potassium replacement. Instructions also were provided if he were to gain 2to3 pounds, take an extra 40 mg Lasix with potassium placement. Newly diagnosed type 2 diabetes mellitus, hemoglobin A1c 6.5, discharged on Metformin 1000 mg daily, with glucometer CPAP, patient would clinically benefit of CPAP, has ISAC, has cardiomyopathy EF to 10 to 15%, discharged on order for CPAP, but this process might take some time through the [facility] Physical Exam Const: COMMON NORMALS: no acute distress and patient oriented x3 Resp: COMMON NORMALS: normal respiratory effort, No retractions, No use of accessory muscles and clear to auscultation bilaterally AUSCULTATION: clear to auscultation bilaterally Cardio: COMMON NORMALS: regular rate, regular rhythm, S1 normal heart sound present and S2 normal heart sound present RATE: regular rate RHYTHM: regular rhythm HEART SOUNDS: S1 normal heart sound present and S2 normal heart sound present GI: COMMON NORMALS: Normal to inspection, nondistended, normoactive bowel sounds present, Soft to palpation and non-tender PALPATION: Yes Soft to palpation Extremity: COMMON NORMALS: no calf tenderness and no pedal edema Neuro: COMMON NORMALS: patient oriented x3 Psych: COMMON NORMALS: mental status grossly normal Urinary Catheter Management^: Ramirez: Cath Placed During This Visit: yes, but has since been removed by the nurse Reason for Continuing Indwelling Catheter: Accurate Measurement of Urinary Output in Critically Ill Patients Urinary Catheter Date of Insertion: 04/21/21 Urinary Catheter Time of Insertion: 10:20 Date Urinary Catheter Removed: 04/23/21 Time Urinary Catheter Discontinued: 17:44 Discharge Data Data Completed and Pending: Completed Studies During Hospitalization Category Date Time Status CT angio chest PE protcl [id number] Stat Cat Scan 04/21/21 11:[address] head wo con* [id number] Stat Cat Scan 04/21/21 10:52 Completed XR chest 1V tracie ble [id number] Routine Exams 04/22/21 07:00 Completed XR chest 1V tracie ble [id number] Routine Exams 04/23/21 16:19 Completed XR chest 1V tracie ble [id number] Routine Exams 04/24/21 14:08 Completed XR chest 1V tracie ble [id number] Routine Exams 04/26/21 13:57 Completed XR chest 1V tracie ble [id number] Stat Exams 04/21/21 10:10 Completed CV carotid duplex BI* [id number] Routine Ultrasound 04/22/21 13:50 Completed CV echo complete* [id number] Urgent Ultrasound 04/21/21 13:50 [place] [id number] Routin e Ultrasound 04/22/21 13:50 Completed US renal BI* [id number] Routine Ultrasound 04/22/21 19:10 Completed Pending at discharge Category Date Time Status C-arm FL for Pace maker Routine Exams 04/24/21 12:12 Taken JESSICA Screen w/ Ref robles Routine Lab 04/21/21 19:37 Results Labs from last 24 hours 04/28/21 04/28/21 04/27/21 03:42 03:42 17:09 WBC 11.0 H RBC 4.87 Hgb 15.2 Hct 45.4 MCV 93.2 MCH 31.2 MCHC 33.5 RDW 12.8 Plt Count 217 MPV 10.0 Neut % (Auto) 65.7 Lymph % (Auto) 20.8 [place] % (Auto) 8.3 Eos % (Auto) 4.0 Baso % (Auto) 0.6 Neut # (Auto) 7.19 Lymph # (Auto) 2.3 [place] # (Auto) 0.9 Eos # (Auto) 0.4 Baso # (Auto) 0.1 Nucleated RBC % (a uto) 0 Nucleated RBCs # 0.0 Sodium 138 134 L Potassium 3.9 3.9 Chloride 99 98 Carbon Dioxide 25 21 L Anion Gap 17.9 18.9 BUN 29 H 30 H Creatinine 1.2 1.4 H GFR Calculation 62.6 L 52.4 L Glucose 98 143 H Calculated Osmolal ity 292 287 Calcium 8.9 8.3 L Phosphorus 3.5 Magnesium 2.2 2.1 Total Bilirubin 1.1 AST 36 ALT 53 H Alkaline Phosphata se 84 Total Protein 6.4 L Albumin 3.8 Globulin 2.6 Vitals: Last Vital Signs Temp 98.0 F 04/28/21 07:24 Pulse 77 04/28/21 07:24 Resp 21 H 04/28/21 07:24 BP 112/85 04/28/21 07:24 Pulse Ox 94 04/28/21 07:24 Discharge Plan Discharge Patient Disposition: Home Condition: Stable Prescriptions: New (DME) glucometer testing kit See Rx Instructions .Route .MEDSUPPLY Qty: 1 RF: 0 amiodarone [Pacerone] 200 mg Tablet 400 mg PO Q12H 30 Days Qty: 120 RF: 0 metformin 1,000 mg tablet 1,000 mg PO DAILY 30 Days Qty: 30 RF: 0 atorvastatin 40 mg Tablet 40 mg PO Q24H 30 Days Qty: 30 RF: 0 pantoprazole 40 mg Tablet,Delayed Release (Dr/Ec) 40 mg PO DAILY 30 Days Qty: 30 RF: 0 Continued multivitamin [Multiple Vitamins] Tablet 1 tab PO DAILY RF: 0 turmeric 400 mg Capsule 400 mg PO DAILY RF: 0 Vitamin D3 1 tab PO DAILY RF: 0 furosemide 40 mg Tablet 40 mg PO BID Qty: 60 RF: 0 aspirin 81 mg Tablet,Delayed Release (Dr/Ec) 81 mg PO DAILY Qty: 30 RF: 0 lisinopril 5 mg Tablet 5 mg PO DAILY Qty: 30 RF: 0 metoprolol tartrate 25 mg Tablet 25 mg PO BID Qty: 60 RF: 0 Eliquis 5 mg Tablet 5 mg PO BID Qty: 60 RF: 0 elderberry fruit and flower 460-115 mg Capsule 1 cap PO DAILY RF: 0 Changed potassium chloride 10 mEq tablet extended release 40 meq PO DAILY Qty: 60 RF: 0 Discharge Orders: Discharge Order (Routine); Ordered 04/28/21 Ordered By: Param Montague Referrals: Seun Rinaldi M.D [Physician] - 4-7 days Barbi Mendenhall MD [Primary Care Provider] - Discharge Diet: Cardiac Discharge Activity: Resume usual activity Patient Instructions: Opioid Safety Activity Restrictions/Additional Instructions: -Please limit fluid intake to 1500 mL -Please do daily weights, if you gain more than 2 pounds, or your lower extremities are more edematous please take an extra 40 mg of Lasix with a 20 mEq of potassium -Please follow-up with cardiology in 1 week -For your atrial fibrillation please take amiodarone, and metoprolol as prescribed -Please [facility] 1 to 2 [facility] -Please follow-up for [facility] for CPAP -For newly diagnosed type 2 diabetes mellitus, please check blood sugars 3 times daily, record blood sugars, bring to [facility] office visit in 1 to 2 weeks -Take Metformin 1000 mg daily Discharge Attestations Time Spent in Discharge Care*: other Status at Discharge: Cognitive status at discharge: cognitively intact, Behavioral status at discharge: cooperative, Quality Metrics Clinical Quality Measures During this hospital stay, did patient experience: None Coding Level of Care Code Acute Chg FW DC note Exam Detailed Diagnoses Atrial fibrillation I48.20 Atrial fibrillation type: unspecified chronic HFrEF (heart failure with reduced ejection fraction) I50.20 Non-ischemic cardiomyopathy I42.8 Cardiac arrest I46.9 Type 2 diabetes mellitus E11.9
[2021-04-28 12:00] VITALS: BP 112/73; PULSE 59; RESP 18; O2SAT 95
--- NOTE | 2021-04-28 12:00 | PC.NURSE ---
notified case mgt on cpap order
[2021-04-28 12:30] VITALS: O2SAT 94; O2SAT 98
--- NOTE | 2021-04-28 13:46 | PC.NURSE ---
called [facility] pharmacy pt [place] pharmacy is close for the weekend and for . Pt choose [facility] pharmacy. called [facility] pharmacy for 7 days.
--- NOTE | 2021-04-28 14:00 | PC.NURSE ---
Discharge to home Instructed pt and [facility] to [facility]. 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 Educated pt and on new meds actions, dosing, timing and possible side effects. CHF stoplight provided. Post defibrillator activity restrictions discuss to pt. Pt and teaches back. Discharge packet given.
[2021-04-28 14:10] VITALS: BP 105/78; PULSE 72; O2SAT 93
== END 2021-04-28 14:53 | disposition home or self-care (01) | DRG 226 ==
LOC: ER 11:16 → ICU 11:38 → CSU 04-25 15:33
PROVIDERS: Internal Medicine; Internal Medicine Nephrology; Thoracic Surgery (Cardiothoracic Vascular Surgery); Admitting Provider Family Medicine; Emergency Provider Emergency Medicine; PCP Family Medicine; Visit Provider Family Medicine
PROC: 0JH608Z Insertion of Defibrillator Generator into Chest Subcutaneous Tissue and Fascia, Open Approach (ICD-10-PCS; CPT 33249; principal; 2021-04-24 12:00)
DX: I46.9 Cardiac arrest, cause unspecified (principal); J96.01 Acute respiratory failure with hypoxia; I21.4 Non-ST elevation (NSTEMI) myocardial infarction; N17.0 Acute kidney failure with tubular necrosis; K72.00 Acute and subacute hepatic failure without coma; J69.0 Pneumonitis due to inhalation of food and vomit; I50.22 Chronic systolic (congestive) heart failure; I42.8 Other cardiomyopathies; E87.4 Mixed disorder of acid-base balance; Z79.01 Long term (current) use of anticoagulants; I11.0 Hypertensive heart disease with heart failure; G47.33 Obstructive sleep apnea (adult) (pediatric); Z87.01 Personal history of pneumonia (recurrent); I25.10 Atherosclerotic heart disease of native coronary artery without angina pectoris; Z96.653 Presence of artificial knee joint, bilateral; Z87.891 Personal history of nicotine dependence; F10.21 Alcohol dependence, in remission; W18.2XXA Fall in (into) shower or empty bathtub, initial encounter; E87.5 Hyperkalemia; Z79.82 Long term (current) use of aspirin; R41.0 Disorientation, unspecified; Z91.19 Patient's noncompliance with other medical treatment and regimen; E11.9 Type 2 diabetes mellitus without complications; I80.02 Phlebitis and thrombophlebitis of superficial vessels of left lower extremity; I95.9 Hypotension, unspecified; I48.20 Chronic atrial fibrillation, unspecified
CPT/HCPCS: 31500; 36415; 36416; 36556; 36592; 36600; 51702; 70450; 71045; 71275; 76000; 76770; 80048; 80051; 80053; 80306; 81001; 82330; 82436; 82550; 82553; 82570; 82803; 82805; 82962; 83036; 83516; 83605; 83735; 83880; 84100; 84133; 84145; 84300; 84439; 84443; 84481; 84484; 85025; 85362; 85378; 85384; 85610; 85730; 86038; 86140; 86225; 87040; 87070; 87086; 87205; 92523; 92610; 93005; 93306; 93880; 93970; 94002; 94003; 94660; 94664; 94762; 94799; 96372; 96374; 96375; 97110; 97116; 97162; 97165; 97535; 99291; 99292; C1722; C1751; C1777; C9113; J0282; J0330; J0610; J0690; J1644; J1650; J1815; J1940; J2250; J2270; J2543; J2704; J3490; J7030; J7060; Q3014; Q9967

== ENCOUNTER → 2022-05-08 14:41 | Outpatient (BNVA) | payer OTHER, SELFPAY | PROVIDERS: PCP Family Medicine; Visit Provider Internal Medicine | DX: Z45.02 Encounter for adjustment and management of automatic implantable cardiac defibrillator (principal) ==

== ENCOUNTER → 2022-06-26 10:03 | Outpatient (BNVA) | payer OTHER, SELFPAY | PROVIDERS: PCP Family Medicine | DX: Z45.02 Encounter for adjustment and management of automatic implantable cardiac defibrillator (principal) | CPT/HCPCS: 93282 ==

== ENCOUNTER → 2022-08-26 12:49 | Outpatient (BNVA) | payer OTHER, SELFPAY | PROVIDERS: PCP Family Medicine; Visit Provider Internal Medicine | DX: I48.20 Chronic atrial fibrillation, unspecified (principal); Z79.01 Long term (current) use of anticoagulants; I11.0 Hypertensive heart disease with heart failure; I50.20 Unspecified systolic (congestive) heart failure; Z95.810 Presence of automatic (implantable) cardiac defibrillator; G47.33 Obstructive sleep apnea (adult) (pediatric); E11.9 Type 2 diabetes mellitus without complications; Z79.84 Long term (current) use of oral hypoglycemic drugs; I42.8 Other cardiomyopathies; Z87.891 Personal history of nicotine dependence | CPT/HCPCS: 36415; 80048; 83880; 99214 ==

== ENCOUNTER 2022-09-10 09:50 | Emergency (ER) | payer OTHER, SELFPAY ==
[2022-09-10] VITALS (9 sets, daily range): BP systolic 122–167; BP diastolic 68–97; PULSE 88–115; RESP 12–26; TEMP 36.9; O2SAT 93–98; BMI 31.7
--- NOTE | 2022-09-10 10:07 | XRR_ITS ---
PROCEDURE INFORMATION: Exam: XR Chest Exam date and time: 09/10/2022 10:16 AM Age: 57 years old Clinical indication: Pain; Angina pectoris; Additional info: Chest pain TECHNIQUE: Imaging protocol: Radiologic exam of the chest. Views: 1 view. COMPARISON: CR XR chest 1V portable [id number] 04/26/2021 2:15 PM FINDINGS: Tubes, catheters and devices: Pacemaker is present via a left subclavian approach. Lungs: Lungs are well aerated without a focal area of consolidation. Pleural spaces: Unremarkable. No pleural effusion. No pneumothorax. Heart/Mediastinum: Unremarkable. No cardiomegaly. Bones/joints: Unremarkable. XR/XR chest 1V portable [id number] IMPRESSION: Lungs are well aerated without a focal area of consolidation.
--- NOTE | 2022-09-10 10:07 | ECG_ITS ---
[facility] Test Date: 2022-09-10 Pat Name: Zach Austin Department: Room: Gender: Male Telecom Analyst: : 1965 Requested By: Harvinder Hernandez Order Number: [id number] Anna Marie MD: Marlene Tijerina M.D. Measurements Intervals [place] Rate: 89 P: 36 DC: 255 QRS: 42 QRSD: 104 T: 29 QT: 335 QTc: 409 Interpretive Statements SINUS RHYTHM WITH FIRST DEGREE AV BLOCK LEFT ATRIAL ENLARGEMENT LOW QRS VOLTAGE IN PRECORDIAL LEADS INCOMPLETE RIGHT BUNDLE BRANCH BLOCK POSSIBLE ANTERIOR MYOCARDIAL INFARCTION , OF INDETERMINATE AGE Compared to ECG 04/24/2021 06:09:47 First degree AV block now present Atrial abnormality now present Low QRS voltage now present Incomplete right bundle-branch block now present Atrial fibrillation no longer present Myocardial infarct finding still present Electronically Signed On 09-11-2022 12:57:34 CDT by Marlene Tijerina M.D. [email or web address]
--- NOTE | 2022-09-10 10:20 | ED_ITS ---
HPI - Chest Pain General: Chief Complaint: Chest Pain Stated Complaint: issues with heart and gout Time Seen by Provider: 09/10/22 10:07 Source: patient Mode of arrival: ambulatory History of Present Illness: 57-year-old male presents emergency room complaining of vague left chest pain. He went to the [facility] today he has some gout-like symptoms in his left hand for which he is being treated his blood pressure is elevated and he mentioned that he had some mild chest discomfort intermittently they were concerned about EKG findings and he was deferred to the emergency room. He is not having any chest pain at this time. He does have an ICD has a history of nonischemic cardiomyopathy. Reviewing cardiology notes there is no evidence that the patient has had any coronary artery disease. He does have a history of atrial fibrillation, chronic systolic congestive heart failure. Patient has had previous episode of cardiac arrest secondary to ventricular tachycardia. Left forearm and hand is swollen. MD complaint: chest pain Timing of current episode: episodic Prior episodes: Yes Onset: during rest Pain location: left chest Pain radiation: none Severity: mild Quality: heaviness Relieving factors: nothing Exacerbating factors: nothing Associated symptoms: Deny abdominal pain, diaphoresis, dyspnea, fever(s), leg e roxana, nausea, palpitations, sense of impending doom, syncope or vomiting Treatment prior to arrival: none Review of Systems Const: Denies: fever(s), chills, fatigue, malaise or diaphoresis ENMT: Denies: throat pain, ear or mastoid pain, nasal discharge or nasal congestion Card: Reports: chest pain; Denies: palpitations, irregular heart rhythm, edema or syncope Resp: Denies: dyspnea GI: Denies: abdominal pain, nausea or vomiting : Denies: flank pain, difficulty urinating, dysuria, urinary frequency or urinary urgency Musc: Reports: extremity swelling, joint pain and joint swelling; Denies: neck pain or back pain Skin/Breast: Denies: rash or pruritus PFSH ED PFSH: Medical History Atrial fibrillation Chest pain CHF (congestive heart failure) Community acquired pneumonia Coronary artery disease HFrEF (heart failure with reduced ejection fraction) Hypertension ICD (implantable cardioverter-defibrillator) in place NSVT (nonsustained ventricular tachycardia) Obstructive sleep apnea -severe per sleep study on 03/2019 Surgical History Status post bilateral knee replacements Family History Grandmother Hypertension Social History Smoking and tobacco status: former smoker Alcohol intake: former Year of sobriety/quit date alcohol: 1 month ago Former alcohol use details: Half a pint of vodka, beer use daily Physical Exam Const: GENERAL APPEARANCE: cooperative and comfortable ORIENTATION/CONSCIOUSNESS: Yes awake, Yes oriented to person, Yes oriented to place and Yes oriented to time HENMT: COMMON NORMALS: normocephalic, atraumatic and hearing grossly normal bilaterally HEAD & SCALP: normocephalic and atraumatic Resp: COMMON NORMALS: normal respiratory effort, No retractions, No use of accessory muscles and clear to auscultation bilaterally AUSCULTATION: clear to auscultation bilaterally Cardio: COMMON NORMALS: regular rate, regular rhythm and No murmurs present (Cardio) RATE: regular rate RHYTHM: regular rhythm GI: COMMON NORMALS: Soft to palpation and No hepatosplenomegaly present AUSCULTATION: Yes normoactive bowel sounds PALPATION: Yes Soft to palpation, No Tenderness to palpation present (GI), No Guarding due to palpation present (GI) and Yes No hepatosplenomegaly present Extremity: COMMON NORMALS: normal to inspection, capillary refill normal, no clubbing, cyanosis or edema, no calf tenderness and no pedal edema Neuro: SENSORIUM/ORIENTATION: Yes oriented to person, Yes oriented to place and Yes oriented to time Skin: COMMON NORMALS: no rashes or lesions noted GENERAL SKIN EXAM: no rashes or lesions noted Course Vital Signs: Vital signs: Vital Signs Temperature 98.4 F 09/10/22 09:56 Pulse Rate 96 09/10/22 15:20 Respiratory Rate 15 09/10/22 13:54 Blood Pressure 137/68 09/10/22 15:20 Pulse Oximetry 95 09/10/22 13:54 Oxygen Delivery Me thod 09/10/22 13:54 MDM - Chest Pain Medical Decision Making Cardiac enzymes are negative. While he was here a little breakthrough A. fib which was controlled with a single dose of IV metoprolol a supplemental dose of his oral. He is doing well with no complaints at this time other than the left hand. Discharging home same medications also put him on a prednisone burst and taper for his gouty arthritis in the hand follow-up with his primary care Medical Records I reviewed the patient's medical records. Lab Data I reviewed the patient's lab results. : 09/10/22 10:38 09/10/22 12:48 Radiology Impressions Chest X-Ray 09/10/22 10:07 IMPRESSION: Lungs are well aerated without a focal area of consolidation. Laboratory Results WBC 16.1 10^3/uL (4.0-10.0) H 09/10/22 10:38 RBC 4.67 10^6/uL (4.1-5.3) 09/10/22 10:38 Hgb 15.6 g/dL (11.7-16.6) 09/10/22 10:38 Hct 45.2 % (42.0-52.0) 09/10/22 10:38 MCV 96.8 fl (80-94) H 09/10/22 10:38 MCH 33.4 pg (28.0-34.0) 09/10/22 10:38 MCHC 34.5 g/dL (30.0-36.0) 09/10/22 10:38 RDW 12.3 % (12.1-15.1) 09/10/22 10:38 Plt Count 186 10^3/cmm (130-400) 09/10/22 10:38 MPV 10.0 fL (7.4-10.4) 09/10/22 10:38 Neut % (Auto) 76.9 % 09/10/22 10:38 Lymph % (Auto) 9.9 % 09/10/22 10:38 [place] % (Auto) 10.1 % 09/10/22 10:38 Eos % (Auto) 1.8 % 09/10/22 10:38 Baso % (Auto) 0.6 % 09/10/22 10:38 Neut # (Auto) 12.39 10^3/uL (1.8-7.7) H 09/10/22 10:38 Lymph # (Auto) 1.6 10^3/uL (0.8-4.8) 09/10/22 10:38 [place] # (Auto) 1.6 10^3/uL (0.2-0.9) H 09/10/22 10:38 Eos # (Auto) 0.3 10^3/uL (0.0-0.8) 09/10/22 10:38 Baso # (Auto) 0.1 10^3/uL (0.0-0.1) 09/10/22 10:38 Nucleated RBC % (auto) 0 % 09/10/22 10:38 Nucleated RBCs # 0.0 /100WBC 09/10/22 10:38 Sodium 134 mmol/L (136-145) L 09/10/22 12:48 Potassium 3.8 mmol/L (3.5-5.1) 09/10/22 12:48 Chloride 95 mmol/L (98-107) L 09/10/22 12:48 Carbon Dioxide 25 mmol/L (22-29) 09/10/22 12:48 Anion Gap 17.8 (5-19) 09/10/22 12:48 BUN 9 mg/dL (6-20) 09/10/22 12:48 Creatinine 0.7 mg/dL (0.7-1.2) 09/10/22 12:48 GFR Calculation 116.2 mL/min (90-130) 09/10/22 12:48 Glucose 119 mg/dL (65-115) H 09/10/22 12:48 Calculated Osmolality 278 mOsm/kg (285-295) L 09/10/22 12:48 Calcium 9.1 mg/dL (8.5-10.5) 09/10/22 12:48 Total Bilirubin 0.7 mg/dL (0.15-1.2) 09/10/22 12:48 AST 12 U/L (0-40) 09/10/22 12:48 ALT 15 U/L (0-41) 09/10/22 12:48 Alkaline Phosphatase 86 U/L (40-130) 09/10/22 12:48 Troponin T Baseline 13 ng/L (0-15) 09/10/22 12:48 Troponin T 120 Minute 13.10 ng/L (0-15) 09/10/22 13:42 Delta Troponin T 0.10 ABS# (0-10) 09/10/22 13:42 Total Protein 7.3 g/dL (6.6-8.7) 09/10/22 12:48 Albumin 4.0 g/dL (3.5-5.2) 09/10/22 12:48 Globulin 3.3 g/dL (1.3-4.6) 09/10/22 12:48 Discharge Plan Discharge Patient Disposition: Home Clinical Impression: Atypical chest pain, Atrial fibrillation, Gouty arthritis Condition: Stable Prescriptions: New prednisone 20 mg tablet 20 mg PO TID Qty: 15 0RF Rx Instructions: 1 p.o. 3 times daily x3 days, 1 p.o. twice daily x2 days, 1 p.o. daily x2 days No Action furosemide 40 mg tablet 40 mg PO DAILY multivitamin [Multiple Vitamins] Tablet 1 tab PO DAILY Eliquis 5 mg Tablet 5 mg PO BID Qty: 60 0RF (DME) glucometer testing kit See Rx Instructions .Route .MEDSUPPLY Qty: 1 0RF Rx Instructions: glucometer testing kit, check BS, TID, before meals lancets#100 strips#100 lisinopril 10 mg Tablet 5 mg PO DAILY metoprolol tartrate 50 mg Tablet 25 mg PO DAILY potassium chloride 20 mEq Tablet Extended Release 40 meq PO DAILY Discharge Orders: Discharge ED (Routine); Ordered 09/10/22 Ordered By: Harvinder Mahmood Referrals: Barbi Mendenhall MD [Primary Care Provider] - Discharge Diet: Usual diet Discharge Activity: Increase activity as tolerated Patient Instructions: Opioid Safety, Pain Management Activity Restrictions/Additional Instructions: Your evaluated for chest pain emergency room your cardiac enzymes are negative. Continue to take all of your regular medications and addition you were given a prednisone burst of tapered to take orally starting tomorrow hopefully for your gout symptoms. Coding Level of Care Code ED Warehouse Associate for Geoff Fwd Exam Detailed
[2022-09-10 10:45] LABS: Basophils # 0.1 10^3/uL (0.0-0.1); Basophils % 0.6 %; Eosinophils # 0.3 10^3/uL (0.0-0.8); Eosinophils % 1.8 %; Hematocrit 45.2 % (42.0-52.0); Hemoglobin 15.6 g/dL (11.7-16.6); Lymphocytes # 1.6 10^3/uL (0.8-4.8); Lymphocytes % 9.9 %; Mean Corpuscular HGB Conc 34.5 g/dL (30.0-36.0); Mean Corpuscular Hemoglobin 33.4 pg (28.0-34.0); Mean Corpuscular Volume 96.8 fl (80-94); Monocytes # 1.6 10^3/uL (0.2-0.9); Monocytes % 10.1 %; Neutrophils # 12.39 10^3/uL (1.8-7.7); Neutrophils % 76.9 %; Nucleated Red Blood Cells % 0 %; Platelet Count 186 10^3/cmm (130-400); Red Blood Count 4.67 10^6/uL (4.1-5.3); Red Cell Distribution Width 12.3 % (12.1-15.1); White Blood Count 16.1 10^3/uL (4.0-10.0)
[2022-09-10] MEDS: HYDROcodone-acetaminophen 5-325 mg Tablet 1 TAB PO (13:10)
[2022-09-10 13:16] LABS: Troponin(5th) Baseline 13 ng/L (0-15)
[2022-09-10 13:21] LABS: Alanine Aminotransferase 15 U/L (0-41); Alkaline Phosphatase 86 U/L (40-130); Anion Gap 17.8 (5-19); Aspartate Amino Transferase 12 U/L (0-40); Blood Urea Nitrogen 9 mg/dL (6-20); Calcium 9.1 mg/dL (8.5-10.5); Carbon Dioxide 25 mmol/L (22-29); Chloride 95 mmol/L (98-107); Globulin 3.3 g/dL (1.3-4.6); Glomerular Filtration Rate 116.2 mL/min (90-130); Glucose 119 mg/dL (65-115); Osmolality Calculated 278 mOsm/kg (285-295); Potassium 3.8 mmol/L (3.5-5.1); Sodium 134 mmol/L (136-145); Total Bilirubin 0.7 mg/dL (0.15-1.2); Total Protein 7.3 g/dL (6.6-8.7)
--- NOTE | 2022-09-10 13:39 | ECG_ITS ---
[facility] Test Date: 2022-09-10 Pat Name: Zach Austin Department: Room: Gender: Male [employer] Assembler: : 1965 Requested By: Harvinder Hernandez Order Number: [id number] Anna Marie MD: Marlene Tijerina M.D. Measurements Intervals [place] Rate: 111 P: IA: QRS: 71 QRSD: 120 T: 29 QT: 383 QTc: 521 Interpretive Statements SINUS RHYTHM WITH FIRST DEGREE AV BLOCK INCOMPLETE RIGHT BUNDLE BRANCH BLOCK Compared to ECG 09/10/2022 10:00:09 Atrial abnormality no longer present Incomplete right bundle-branch block no longer present Myocardial infarct finding no longer present Electronically Signed On 09-11-2022 13:03:38 CDT by Marlene Tijerina M.D. [id number]
[2022-09-10] MEDS: metoprolol tartrate 1 mg/1 mL SDV 5 mL 5 MG IVP (13:51)
[2022-09-10] MEDS: metoprolol tartrate 25 mg Tablet PO (13:51)
[2022-09-10] MEDS: dexamethasone 4 mg Tablet 10 MG PO (15:13)
== END 2022-09-10 15:23 | disposition home or self-care (01) ==
PROVIDERS: Emergency Provider Family Medicine; PCP Family Medicine
DX: R07.89 Other chest pain (principal); I48.91 Unspecified atrial fibrillation; M10.9 Gout, unspecified; Z79.01 Long term (current) use of anticoagulants; I11.0 Hypertensive heart disease with heart failure; I50.9 Heart failure, unspecified; I25.10 Atherosclerotic heart disease of native coronary artery without angina pectoris; Z87.891 Personal history of nicotine dependence
CPT/HCPCS: 36415; 71045; 80053; 84484; 85025; 93005; 96374; 99285; J3490; J8540

== ENCOUNTER → 2023-02-24 15:03 | Outpatient (BNVA) | payer OTHER, SELFPAY | PROVIDERS: PCP Family Medicine; Visit Provider Internal Medicine | DX: I50.20 Unspecified systolic (congestive) heart failure (principal); Z95.810 Presence of automatic (implantable) cardiac defibrillator; G47.33 Obstructive sleep apnea (adult) (pediatric); E11.9 Type 2 diabetes mellitus without complications; I42.8 Other cardiomyopathies; I48.91 Unspecified atrial fibrillation; Z79.01 Long term (current) use of anticoagulants; Z87.891 Personal history of nicotine dependence | CPT/HCPCS: 99214 ==

== ENCOUNTER → 2023-12-28 09:57 | Outpatient (BNVA) | payer OTHER, SELFPAY | PROVIDERS: PCP Family Medicine; Referring Provider Family Medicine; Visit Provider Nurse Practitioner | DX: M25.532 Pain in left wrist (principal) | CPT/HCPCS: 73110 ==

== ENCOUNTER → 2023-12-29 08:54 | Outpatient (BNVA) | payer OTHER, SELFPAY | PROVIDERS: PCP Family Medicine; Referring Provider Family Medicine; Visit Provider Surgery | DX: Z12.11 Encounter for screening for malignant neoplasm of colon (principal) | CPT/HCPCS: 99203 ==

== ENCOUNTER 2024-04-22 09:34 | Inpatient (IN) | payer OTHER, SELFPAY ==
[2024-04-22] VITALS (26 sets, daily range): BP systolic 115–193; BP diastolic 67–136; PULSE 83–141; RESP 18–43; TEMP 36.8–39.8; O2SAT 91–100
--- NOTE | 2024-04-22 09:45 | ECG_ITS ---
[facility] Test Date: 2024-04-22 Pat Name: Zach Austin Department: Room: Gender: Male [employer] Maker Hand: : 1965 Requested By: Lorena Granger Order Number: [id number] Anna Marie MD: Seun Rinaldi M.D. Measurements Intervals [place] Rate: 141 P: 0 [place]: 0 QRS: 93 QRSD: 105 T: 43 QT: 300 QTc: 460 Interpretive Statements ATRIAL FLUTTER WITH RAPID VENTRICULAR RESPONSE WITH ABERRANT CONDUCTION OR VENTRICULAR PREMATURE COMPLEXES BORDERLINE RIGHT AXIS DEVIATION [QRS AXIS > 90] LOW QRS VOLTAGE IN PRECORDIAL LEADS [QRS DEFLECTION < 1.0 mV IN CHEST LEADS] INCOMPLETE RIGHT BUNDLE BRANCH BLOCK [90+ ms QRS DURATION, TERMINAL R IN V1/V2, 40+ ms S IN I/aVL/V4/V5/V6] ABNORMAL RHYTHM ECG Compared to ECG 09/10/2022 13:39:21 Ventricular premature complex(es) now present Low QRS voltage now present Sinus rhythm no longer present First degree AV block no longer present Electronically Signed On 04-22-2024 13:06:43 CDT by Seun Rinaldi M.D. [id number] allen
--- NOTE | 2024-04-22 09:45 | CT_ITS ---
WS: [id number] CT HEAD NONCONTRAST HISTORY: fall TECHNIQUE: Contiguous axial imaging performed through the brain in 2.5 mm imaging. Bone and soft tiss ue windows. Sagittal and coronal reformats reviewed. All CT scans at [facility] use at least one of these dose optimization techniques: automated exposure control; mA and/or kV adjustment per pa tient size (includes targeted exams where dose is matched to clinical indication); or iterative recon struction. DLP: 1677.88 mGy.cm COMPARISON: 04/21/2021 No acute intracranial hemorrhage, midline shift or mass effect. Very mild atrophy and mild small vessel ischemic changes. No acute infarct. No hemorrhage. Ventricles: Normal size with no hydrocephalus. Paranasal sinuses: As visualized are clear. Mastoid air cells: Well pneumatized. Calvarium and scalp: Skull is intact with no soft tissue edema or swelling. CT/CT head wo con* [id number] IMPRESSION: 1. No acute intracranial hemorrhage or edema. 2. Very minimal age-related atrophy and small vessel disease.
--- NOTE | 2024-04-22 09:45 | XRR_ITS ---
PROCEDURE INFORMATION: Exam: XR Chest Exam date and time: 04/22/2024 9:50 AM Age: 59 years old Clinical indication: Injury or trauma; Fall; Blunt trauma (contusions or hematomas); Prior surgery; Surgery date: 6+ months; Surgery type: Pacemaker; Patient HX: Syncope TECHNIQUE: Imaging protocol: Radiologic exam of the chest. Views: 1 view. COMPARISON: CR XR chest 1V portable [id number] 09/10/2022 10:16 AM FINDINGS: Tubes, catheters and devices: Cardiac pacemaker on the left with leads in satisfactory position. Lungs: There is an area of dense consolidation involving the left upper lung field. Pleural spaces: Unremarkable. No pleural effusion. No pneumothorax. Heart/Mediastinum: Unremarkable. No cardiomegaly. Bones/joints: Unremarkable. XR/XR chest 1V portable [id number] IMPRESSION: Left upper lobe infiltrate
--- NOTE | 2024-04-22 09:45 | CT_ITS ---
WS: [id number] CT CERVICAL SPINE HISTORY: fall TECHNIQUE: Contiguous 2.0 mm axial imaging performed through the entire cervical spine. Sagittal and coronal reformats also performed. All CT scans at [facility] use at least one of these dose o ptimization techniques: automated exposure control; mA and/or kV adjustment per patient size (include s targeted exams where dose is matched to clinical indication); or iterative reconstruction. DLP: 1677.88 mGy.cm COMPARISON: None available. Normal cervical alignment. Disc space narrowing and osteophytosis throughout the cervical spine. Face t joints are normally aligned. C1-C2 lateral masses are aligned. The odontoid is intact. C2-C3: Small central disc protrusion and mild LEFT foraminal stenosis. C3-C4: Bilateral facet arthritis. Severe LEFT and moderate RIGHT foraminal stenosis with a small cent ral disc protrusion and stenosis. C4-C5: Osteophytic ridging, bilateral moderate facet arthritis and foraminal stenosis. C5-C6: Osteophytic ridging. Mild central and bilateral foraminal stenosis. C6-C7: Osteophytic ridging. Moderate to severe foraminal and mild central stenosis. C7-T1: Normal. Incompletely visualized is a consolidation in the LEFT upper lobe. There is also an area of consolida tion seen on the radiograph performed on the same day. This will need to be further evaluated for pos sible pneumonia or pulmonary contusion or neoplasm. CT/CT cervical spin wo con* [id number] IMPRESSION: 1. No acute cervical spine fracture. 2. Multilevel areas of foraminal and central stenosis as above. 3. Incompletely visualized consolidation in the LEFT upper lobe. There is also an abnormality on the recent radiograph performed. Differential includes pneum onia, pulmonary contusion or neoplasm. Recommend chest CT with contrast follow- up.
--- NOTE | 2024-04-22 09:48 | ED_ITS ---
HPI - Fall 2 General: Chief Complaint: Fall Stated Complaint: fall Time Seen by Provider: 04/22/24 09:42 Source: patient and EMS Mode of arrival: EMS Limitations: no limitations History of Present Illness: 59-year-old male states he had a fall la night in the shower and did hit his head. He has an abrasion to his left eyebrow he states that his defibrillator also went off twice last night he has an AICD he has a history of A-fib. States this morning he had felt weak and he had had a fall down the stairs. He states he denies any syncope but states he was too weak to stand up after the fall on neighbors and called EMS. He does have a headache he denies any chest pain he is in A-fib with RVR here heart rate in the 140s he does have a history of A-fib he is on Eliquis. Associated symptoms-after fall: Reports headache(s) and lightheadedness; Denies abdominal pain, chest pain or neck pain Review of Systems 2 Const: Denies: fever(s), chills, body aches or change in appetite ENMT: Denies: throat pain or dental pain Card: Reports: lightheadedness and pre-syncope; Denies: chest pain Resp: Denies: dyspnea GI: Denies: abdominal pain, nausea, vomiting or diarrhea Musc: Denies: neck pain or back pain Skin/Breast: Denies: rash Neuro: Reports: headache(s) PFS ED 2 PFSH: Medical History ICD (implantable cardioverter-defibrillator) in place Coronary artery disease Obstructive sleep apnea -severe per sleep study on 03/2019 NSVT (nonsustained ventricular tachycardia) HFrEF (heart failure with reduced ejection fraction) Hypertension Atrial fibrillation Community acquired pneumonia Chest pain CHF (congestive heart failure) Surgical History Status post bilateral knee replacements Family History Grandmother Hypertension Social History Smoking and tobacco/nicotine status: current some day tobacco/nicotine user cigarettes Packs smoked per day: 0.5 Years cigarettes smoked: 39 Alcohol intake: former Year of sobriety/quit date alcohol: 1 month ago Former alcohol use details: Half a pint of vodka, beer use daily Substance/Drug Use: never Physical Exam 2 Const: COMMON NORMALS: no acute distress and patient oriented x3 HENMT: COMMON NORMALS: normocephalic HEAD & SCALP: normocephalic OTHER: Abrasion to left eyebrow Eye: COMMON NORMALS: Equal, round and reactive pupils present and EOMs intact bilaterally PUPIL: Yes Equal, round and reactive pupils present Neck/C-Spine: COMMON NORMALS: full ROM and supple Chest: COMMONS NORMALS: normal inspection of the chest and normal palpation of entire chest wall Resp: COMMON NORMALS: normal respiratory effort, No retractions and No use of accessory muscles AUSCULTATION: rales on the left Cardio: COMMON NORMALS: No murmurs present (Cardio) RATE: tachycardic R HYTHM: abnormal rhythm irregularly irregular GI: COMMON NORMALS: Normal to inspection, nondistended, normoactive bowel sounds present, Soft to palpation, non-tender and no masses PALPATION: Yes Soft to palpation Extremity: COMMON NORMALS: normal to inspection and full ROM Neuro: COMMON NORMALS: patient oriented x3, moves all extremities and no focal motor deficits Psych: COMMON NORMALS: mental status grossly normal, Normal thought process present and cooperative THOUGHT PROCESS: Normal thought process present Skin: COMMON NORMALS: no rashes or lesions noted and no wounds GENERAL SKIN EXAM: no rashes or lesions noted Course 2 Vital Signs: Vital signs: Vital Signs Temperature 98.3 F 04/22/24 09:35 Pulse Rate 99 04/22/24 11:41 Respiratory Rate 27 H 04/22/24 11:41 Blood Pressure 127/90 04/22/24 11:41 Pulse Oximetry 93 04/22/24 11:41 Oxygen Delivery Me thod Room Air 04/22/24 11:41 MDM - Fall Medical Decision Making Patient presents here with closed head injury after fall he had complained any shortness of breath he was diaphoretic here x-ray shows a obvious left-sided pneumonia he is also septic likely from the pneumonia he has an elevated lactate and white count did give him IV fluid bolus started him on antibiotics. Patient is A-fib with RVR was placed on amiodarone here his pressures here have been stable he had no hypotension spoke to the hospitalist will admit at this time Medical Records I reviewed the patient's medical records. Lab Data I reviewed the patient's lab results. 04/22/24 09:57 04/22/24 09:57 Radiology Impressions Cervical Spine CT 04/22/24 09:45 IMPRESSION: 1. No acute cervical spine fracture. 2. Multilevel areas of foraminal and central stenosis as above. 3. Incompletely visualized consolidation in the LEFT upper lobe. There is also an abnormality on the recent radiograph performed. Differential includes pneumonia, pulmonary contusion or neoplasm. Recommend chest CT with contrast follow-up. Head CT 04/22/24 09:45 IMPRESSION: 1. No acute intracranial hemorrhage or edema. 2. Very minimal age-related atrophy and small vessel disease. Laboratory Results WBC 24.15 10^3/uL (3.29-11.43) H 04/22/24 09:57 RBC 4.79 10^6/uL (3.85-5.65) 04/22/24 09:57 Hgb 16.20 g/dL (11.27-16.99) 04/22/24 09:57 Hct 45.9 % (37-53) 04/22/24 09:57 MCV 95.8 fl (82-101) 04/22/24 09:57 MCH 33.8 pg (27-33) H 04/22/24 09:57 MCHC 35.3 g/dL (30-55) 04/22/24 09:57 RDW 12.2 % (12.1-15.1) 04/22/24 09:57 Plt Count 177 10^3/cmm (157-399) 04/22/24 09:57 MPV 9.9 fL (7.4-10.4) 04/22/24 09:57 Neut % (Auto) 87.6 % 04/22/24 09:57 Lymph % (Auto) 3.9 % 04/22/24 09:57 [place] % (Auto) 7.0 % 04/22/24 09:57 Eos % (Auto) 0.0 % 04/22/24 09:57 Baso % (Auto) 0.5 % 04/22/24 09:57 Neut # (Auto) 21.17 10^3/uL (1.8-7.7) H 04/22/24 09:57 Lymph # (Auto) 1.0 10^3/uL (0.8-4.8) 04/22/24 09:57 [place] # (Auto) 1.7 10^3/uL (0.2-0.9) H 04/22/24 09:57 Eos # (Auto) 0.0 10^3/uL (0.0-0.8) 04/22/24 09:57 Baso # (Auto) 0.1 10^3/uL (0.0-0.1) 04/22/24 09:57 Nucleated RBC % (auto) 0 % 04/22/24 09:57 Nucleated RBCs # 0.0 /100WBC 04/22/24 09:57 PT 19.40 SECONDS (12.1-14.9) H 04/22/24 09:57 INR 1.58 (0.8-1.2) H 04/22/24 09:57 Specimen Type Arterial 04/22/24 10:45 Sample Site Radial, right 04/22/24 10:45 ABG pH 7.38 (7.35-7.45) 04/22/24 10:45 ABG pCO2 24.5 mmHg (35-45) L 04/22/24 10:45 ABG pO2 78.3 mmHg (80.0-100.0) L 04/22/24 10:45 ABG PO2/FiO2 Ratio 0 04/22/24 10:45 ABG HCO3 14.6 mmol/L (22-26) L 04/22/24 10:45 ABG Base Excess -8.4 mmol/L (-2.0-2.0) L 04/22/24 10:45 [facility] Test Pos 04/22/24 10:45 Hematocrit 47.8 % (42-52) 04/22/24 10:45 O2 Delivery Device Room air 04/22/24 10:45 FiO2 21.0 % 04/22/24 10:45 Colon And Rectal Surgeon ID glc 04/22/24 10:45 Sodium 125 mmol/L (136-145) L 04/22/24 09:57 Potassium 4.4 mmol/L (3.5-5.1) 04/22/24 09:57 Chloride 94 mmol/L (98-107) L 04/22/24 09:57 Carbon Dioxide 11 mmol/L (22-29) L 04/22/24 09:57 Anion Gap 24.4 (5-19) H 04/22/24 09:57 BUN 20 mg/dL (6-20) 04/22/24 09:57 Creatinine 2.4 mg/dL (0.7-1.2) H 04/22/24 09:57 GFR Calculation 27.8 mL/min (90-130) L 04/22/24 09:57 Glucose 138 mg/dL (65-115) H 04/22/24 09:57 Calculated Osmolality 265 mOsm/kg (285-295) L 04/22/24 09:57 Lactic Acid 6.9 mmol/L (0.5-2.2) H* 04/22/24 09:57 Calcium 8.7 mg/dL (8.5-10.5) 04/22/24 09:57 Total Bilirubin 0.6 mg/dL (0.15-1.2) 04/22/24 09:57 AST 89 U/L (0-40) H 04/22/24 09:57 ALT 34 U/L (0-41) 04/22/24 09:57 Alkaline Phosphatase 81 U/L (40-130) 04/22/24 09:57 Troponin T Baseline 114 ng/L (0-15) H* 04/22/24 09:57 NT-Pro-B Natriuret Pep 1206 pg/mL (0-125) H 04/22/24 09:57 Total Protein 7.5 g/dL (6.6-8.7) 04/22/24 09:57 Albumin 3.6 g/dL (3.5-5.2) 04/22/24 09:57 Globulin 3.9 g/dL (1.3-4.6) 04/22/24 09:57 All radiology interpretation(s) finalized by discharge EKG Data EKG 1: I personally reviewed and interpreted this EKG as follows: EKG interpretation date: 04/22/24 EKG interpretation time: 09:43 Interpretation: afib hr [address] elevation qrs 105 qtc 382 Critical Care Time 2 Critical Care Time: Critical Care Time: Yes Total Critical Care Time: 40 Attestation: The high probability of a clinically significant, sudden or life threatening deterioration of the patient's resp system(s) required my full and direct attention, intervention and personal management. The critical care time is as shown. This time is in addition to time spent performing any reported procedures but includes the following: [x] Data and vital sign review and interpretation [x] Patient assessment, examination and intervention [x] Documentation [x] Medication orders and management Discharge Plan Discharge Patient Disposition: Admitted As Inpatient Admit Provider: Remington Pettit Clinical Impression: Atrial fibrillation, Pneumonia, Sepsis, Head injury Condition: Stable Coding Level of Care Code ED Intelligence Manager for Geoff Sparrow
[2024-04-22] MEDS: dilTIAZem 5 mg/mL SDV 5 mL 10 MG IVP (10:01)
[2024-04-22] MEDS: sodium chloride 0.9% 1,000 ML 999 ML IV ×2 (10:01→11:04)
[2024-04-22 10:04] LABS: Basophils # 0.1 10^3/uL (0.0-0.1); Basophils % 0.5 %; Hematocrit 45.9 % (37-53); Lymphocytes % 3.9 %; Mean Corpuscular HGB Conc 35.3 g/dL (30-55); Mean Corpuscular Hemoglobin 33.8 pg (27-33); Mean Corpuscular Volume 95.8 fl (82-101); Mean Platelet Volume 9.9 fL (7.4-10.4); Monocytes # 1.7 10^3/uL (0.2-0.9); Neutrophils # 21.17 10^3/uL (1.8-7.7); Neutrophils % 87.6 %; Nucleated Red Blood Cells % 0 %; Platelet Count 177 10^3/cmm (157-399); Red Blood Count 4.79 10^6/uL (3.85-5.65); Red Cell Distribution Width 12.2 % (12.1-15.1); White Blood Count 24.15 10^3/uL (3.29-11.43)
[2024-04-22] MEDS: amiodarone 150 MG/100 ML PREMIX 400 MG IV (10:28)
[2024-04-22 10:29] LABS: INR 1.58 (0.8-1.2)
[2024-04-22 10:32] LABS: Alanine Aminotransferase 34 U/L (0-41); Albumin Level 3.6 g/dL (3.5-5.2); Alkaline Phosphatase 81 U/L (40-130); Anion Gap 24.4 (5-19); Aspartate Amino Transferase 89 U/L (0-40); Blood Urea Nitrogen 20 mg/dL (6-20); Calcium 8.7 mg/dL (8.5-10.5); Carbon Dioxide 11 mmol/L (22-29); Chloride 94 mmol/L (98-107); Creatinine Clr Calc Pharmacy 35.3633; Globulin 3.9 g/dL (1.3-4.6); Glomerular Filtration Rate 27.8 mL/min (90-130); Glucose 138 mg/dL (65-115); Osmolality Calculated 265 mOsm/kg (285-295); Potassium 4.4 mmol/L (3.5-5.1); Sodium 125 mmol/L (136-145); Total Bilirubin 0.6 mg/dL (0.15-1.2); Total Protein 7.5 g/dL (6.6-8.7)
[2024-04-22 10:33] LABS: Lactic Sepsis W/Reflex 6.9 mmol/L (0.5-2.2); Troponin(5th) Baseline 114 ng/L (0-15)
[2024-04-22 10:57] LABS: ABG PCO2 24.5 mmHg (35-45); ABG PH Result 7.38 (7.35-7.45); Arterial Blood Gas Hematocrit 47.8 % (42-52); Base Excess ABG -8.4 mmol/L (-2.0-2.0); Blood Gas Allen Test Pos; Blood Gas Operator Identificat glc; Blood Gas Sample Site Radial, right; Blood Gas Sample Type Arterial; HCO3 ABG 14.6 mmol/L (22-26); Oxygen Device ROOM AIR; PO2 ABG 78.3 mmHg (80.0-100.0); PO2 FiO2 Ratio Arterial Blood 0
[2024-04-22] MEDS: sodium chloride 0.9% 500 ML 999 ML IV (11:04)
[2024-04-22] MEDS: cefTRIAXone 1,000 MG in sodium chloride 0.9% (plus) 50 ML 100 MG IV (11:04)
[2024-04-22 11:19] LABS: NT Pro B Type Natriuretic Pept 1206 pg/mL (0-125)
[2024-04-22] MEDS: azithromycin 500 MG in sodium chloride 0.9% 250 ML 250 MG IV (11:38)
--- NOTE | 2024-04-22 11:55 | P.HP_ITS ---
Providers/Chief Complaint 2 Admitting Physician: Remington Pettit MD Primary Care Provider: Barbi Mendenhall MD Chief Complaint: fall History of Present Illness Zach Austin is a 59 year old male with history of cardiomyopathy with reduced EF fraction status post AICD, patient presented to the hospital with generalized weakness, recurrent falls, AICD firing, patient has history of A-fib. Patient is stating that he is currently going through divorce, currently living alone, he smokes 1 pack/day, patient is stating that he never got a stent in his heart but had 3 cardiac arrest in the past that is why he got the defibrillator, patient is stating that he was getting ready to go to work today when he fell in the balcony, his neighbor saw and called 911, patient is stating that yesterday when he was in the shower, she slipped on the wet floor and he noticed that his AICD fired twice, patient stating that he did not notice any prodromal symptoms, chest pain nausea vomiting or any fever, when he fell first time he slept on the floor and woke up after a few hours then went to bed, in the morning when he was in the patio his foot caught on something and he fell, he was try 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 Grayson consulted, he has been diagnosed with non-STEMI, He is septic with left upper lobe pneumonia Review of Systems 2 Const: Reports: fever(s), chills, body aches and fatigue Eyes: Denies: change in vision ENMT: Denies: throat pain Card: Reports: palpitations; Denies: chest pain Resp: Denies: dyspnea GI: Denies: abdominal pain Medications/Allergies Home Medications Medication Instructions Recorded Confirmed Last Taken Type multivitamin (Multiple Vitamins 1 tab PO DAILY 09/19/20 12/29/23 09/10/22 History tablet) apixaban 5 mg tablet (Eliquis) 5 mg PO BID #60 tabs 10/06/20 12/29/23 09/10/22 Rx glucometer testing kit #1 ea 04/28/21 12/29/23 Unknown Rx furosemide 40 mg tablet 40 mg PO DAILY 05/02/21 12/29/23 09/10/22 History lisinopril 10 mg tablet 5 mg PO DAILY 09/10/22 12/29/23 09/10/22 History metoprolol tartrate 50 mg tablet 25 mg PO DAILY 09/10/22 12/29/23 09/10/22 History potassium chloride 20 mEq 40 meq PO DAILY 09/10/22 12/29/23 09/10/22 History tablet,extended release Allergies Allergy/AdvReac Type Severity Reaction Status Date / Time No Known Allergies Allergy Verified 12/29/23 08:55 PFSH Acute 2 PFSH: Medical History ICD (implantable cardioverter-defibrillator) in place Coronary artery disease Obstructive sleep apnea -severe per sleep study on 03/2019 NSVT (nonsustained ventricular tachycardia) HFrEF (heart failure with reduced ejection fraction) Hypertension Atrial fibrillation Community acquired pneumonia Chest pain CHF (congestive heart failure) Surgical History Status post bilateral knee replacements Family History Grandmother Hypertension Social History Smoking and tobacco/nicotine status: current some day tobacco/nicotine user cigarettes Packs smoked per day: 0.5 Years cigarettes smoked: 39 Alcohol intake: former Year of sobriety/quit date alcohol: 1 month ago Former alcohol use details: Half a pint of vodka, beer use daily Substance/Drug Use: never Vitals/I&O/Wt Last Vital Signs Temp 98.3 F 04/22/24 09:35 Pulse 99 04/22/24 11:41 Resp 27 H 04/22/24 11:41 BP 127/90 04/22/24 11:41 Pulse Ox 93 04/22/24 11:41 O2 Del Method Room Air 04/22/24 11:41 04/21/24 04/22/24 04/22/24 22:59 06:59 14:59 Intake Total 1650 / 1650 Balance 1650 / 1650 Weight last 48 hrs Weight 82.554 kg Physical Exam 2 Narrative: Patient is diaphoretic Laying supine GCS 15 Nonfocal neuroexam Currently on room air Heart rate 102, paroxysmal A-fib No acute chest pain AICD in place GCS 15 nonfocal neuroexam Euvolemic Abdomen soft Currently on room air No audible stridor or wheezing Data 04/22/24 09:57 04/22/24 09:57 A&P Assessment and plan (1) Sepsis: (2) Head injury: (3) Pneumonia: (4) ISAC (obstructive sleep apnea): (5) HFrEF (heart failure with reduced ejection fraction): (6) Non-ischemic cardiomyopathy: (7) Atrial fibrillation: (8) ICD (implantable cardioverter-defibrillator) in place: (9) NSTEMI (non-ST elevated myocardial infarction): Plan Non-STEMI with underlying history of nonischemic cardiomyopathy Start ACS protocol Will use Lovenox therapeutic regimen once daily secondary to high creatinine Hold off on Eliquis Will give loading dose of aspirin and Plavix Requested echo AICD interrogation and Dr. Grayson consulted Sepsis related to left upper lobe pneumonia Septic bolus given Patient received ceftriaxone azithromycin, lactic acid requested, will request blood cultures Keep him on ceftriaxone and doxycycline Avoiding azithromycin to prevent QT prolongation A-fib RVR AICD interrogation Currently on amiodarone Eliquis on hold currently on therapeutic Lovenox once daily regimen Admit to ICU Patient currently doing well on room air Has history of type 2 diabetes we will use cardiac consistent carb diet along insulin sliding scale Sleep apnea history Full code Social dynamics: Patient going through a divorce, stating in case of any event his son should be notified Attestations 2 Medical Necessity Statement*: More than 2 midnights anticipated Diagnoses Sepsis A41.9 Head injury S09.90XA Pneumonia J18.9 SIAC (obstructive sleep apnea) G47.33 HFrEF (heart failure with reduced ejection fraction) I50.20 Non-ischemic cardiomyopathy I42.8 Chronic atrial fibrillation I48.91 ICD (implantable cardioverter-defibrillator) in place Z95.810 NSTEMI (non-ST elevated myocardial infarction) I21.4
[2024-04-22 12:07] LABS: Reflex Lactate Order REFLEX LACTIC ORDERD
--- NOTE | 2024-04-22 12:25 | ECG_ITS ---
[facility] Test Date: 2024-04-22 Pat Name: Zach Austin Department: Room: ICU04 Gender: Male [employer] Operator: : 1965 Requested By: Lorena Granger Order Number: [id number] Anna Marie MD: Seun Rinaldi M.D. Measurements Intervals [place] Rate: 106 P: 47 WI: 240 QRS: 74 QRSD: 121 T: 50 QT: 332 QTc: 441 Interpretive Statements SINUS TACHYCARDIA WITH FIRST DEGREE AV BLOCK WITH OCCASIONAL SUPRAVENTRICULAR PREMATURE COMPLEXES POSSIBLE LEFT ATRIAL ENLARGEMENT [-0.1mV P-WAVE IN V1/V2] POSSIBLE RIGHT VENTRICULAR CONDUCTION DELAY [RSR (QR) IN V1/V2] Compared to ECG 04/22/2024 09:43:01 First degree AV block now present Atrial flutter no longer present Ventricular premature complex(es) no longer present Incomplete right bundle-branch block no longer present Electronically Signed On 04-22-2024 13:10:12 CDT by Seun Rinaldi M.D. [id number]
--- NOTE | 2024-04-22 12:34 | PC.NURSE ---
Report was called to Scott KWONG. Pt was transferred to ICU room 6, with all paperwork and belongings.
[2024-04-22 12:52] LABS: Troponin 5 2HR 79.37 ng/L (0-15); Troponin 5 2HR Delta -34.63 ABS# (0-10)
[2024-04-22 13:49] LABS: Magnesium 1.8 mg/dL (1.7-2.3)
--- NOTE | 2024-04-22 13:54 | ECG_ITS ---
[facility] Test Date: 2024-04-22 Pat Name: Zach Austin Department: Room: [facility]04 Gender: Male [employer] Dispatcher: : 1965 Requested By: Lorena Granger Order Number: [id number] Anna Marie MD: Seun Rinaldi M.D. Measurements Intervals [place] Rate: 93 P: 268 AL: 210 QRS: 74 QRSD: 118 T: 35 QT: 368 QTc: 458 Interpretive Statements SINUS RHYTHM WITH FIRST DEGREE AV BLOCK LOW QRS VOLTAGE IN PRECORDIAL LEADS [QRS DEFLECTION < 1.0 mV IN CHEST LEADS] MODERATE INTRAVENTRICULAR CONDUCTION DELAY [110+ ms QRS DURATION] ST ELEVATION, PROBABLY EARLY REPOLARIZATION [ST ELEVATION WITH NORMALLY INFLECTED T-WAVE] Compared to ECG 04/22/2024 12:25:51 Low QRS voltage now present Intraventricular conduction delay now present ST (T wave) deviation now present Early repolarization now present Sinus tachycardia no longer present Electronically Signed On 04-22-2024 20:26:38 CDT by Seun Rinaldi M.D. [id number]
[2024-04-22 13:57] LABS: Procalcitonin 25.57 ng/mL (0-0.5)
[2024-04-22] MEDS: magnesium oxide 400 mg tablet PO ×2 (14:19→17:47)
[2024-04-22] MEDS: enoxaparin 80 mg/0.8 mL Syringe SUBCUT (14:19)
[2024-04-22] MEDS: clopidogrel 300 mg Tablet PO (14:20)
[2024-04-22] MEDS: aspirin 325 mg EC Tablet PO (14:20)
[2024-04-22 14:25] LABS: Lactic Acid level (Lactate) 1.7 mmol/L (0.5-2.2)
--- NOTE | 2024-04-22 14:50 | USCV_ITS ---
Zach Austin Age: 59 Gender: M : 1965 Exam Date: 04/22/2024 16:05 Ordering Phys: Remington Pettit MD Technologist: Billy Pérez [place] [facility] [place]: afib BP: 127 / 90 HR: 100 Rhythm: Sinus Technical Quality: Adequate MEASUREMENTS (Male / Female) Normal Values 2D ECHO LV Diastolic Diameter PLAX 3.6 cm 4.2 - 5.9 / 3.9 - 5.3 cm IVS Diastolic Thickness 1.1 cm 0.6 - 1.0 / 0.6 - 0.9 cm IVS Systolic Thickness 1.2 cm LVPW Diastolic Thickness 1.1 cm 0.6 - 1.0 / 0.6 - 0.9 cm LVPW Systolic Thickness 1.6 cm LVOT Diameter 2.3 cm LV Ejection Fraction 2D Teich 50.7 % LV Ejection Fraction MOD 2C 59.9 % LV Ejection Fraction 2C AL 60.2 % LA Diameter 3.7 cm RA Systolic Volume 4C AL 28.0 ml RA Systolic Volume 4C MOD 27.5 ml LA Sys Volume AL 45.6 cm cubed LA Sys Volume Index AL 21.9 cm cubed/m squared Aorta at Sinotubular Diameter 2.9 cm IVC Diameter 2.5 cm M-MODE LA Ao Ratio MM 1.0 AV Cusp Separation MM 1.7 cm DOPPLER AV Peak Velocity 135.0 cm/s LVOT Peak Velocity 85.0 cm/s AV Area Cont Eq vti 2.8 cm squared AV Area Cont Eq pk 2.6 cm squared MV Peak Velocity 167.0 cm/s MV Area PHT 12.2 cm squared Mitral E to A Ratio 1.3 PV Peak Velocity 63.0 cm/s RV Ejection Time 0.2 s FINDINGS Left Ventricle Relative hypokinesia of the septum. Overall ejection fraction around 55% Right Ventricle Pacemaker/defibrillator wire in the right ventricle Right Atrium Pacemaker/defibrillator wire Left Atrium Normal left atrial size. Mitral Valve No gross abnormalities noted Aortic Valve Thickened aortic valve. Tricuspid Valve No gross abnormalities noted Pulmonic Valve Pulmonic valve not well visualized. Pericardium Normal pericardium without effusion. Aorta Normal ascending aorta dimension. IVC Normal inferior vena cava. CONCLUSIONS Normal LV size ejection fraction of 55%. R Wall motion abnormality as mentioned above. Normal chamber sizes. Thickened aortic valve. No significant stenotic or regurgitant lesions Pacemaker/defibrillator wire in the right ventricle There is no pericardial effusion. Compared to the study from 04/21/2021, there is marked improvement LV ejection fraction from 10 - 15% to 55%. Dr Phyllis Grayson MD [facility] (Electronically Signed) Final Date: 22 Apr 2024 23:44 S
--- NOTE | 2024-04-22 15:07 | PC.NURSE ---
Patient received from ER staff via [employer]. Vital signs upon admission stable and afebrile. Patient alert and oriented with weakened gait. Laceration noted on left eyebrow and nose. Educated patient on fall risk, and how to avoid falls.
--- NOTE | 2024-04-22 16:01 | P.CONIM_ITS ---
Providers/Reason For Consult 2 Consulting Physician/Specialty*: ANTHONY Grayson MD/cardiology Reason for Consult*: The patient with a cardiomyopathy, status post ICD, presenting with ICD discharges/sepsis Requesting Physician: Dr. Pettit Attending Physician: Remington Pettit MD Primary Care Provider: Barbi Mendenhall MD History of Present Illness History of Present Illness Zach Austin is a 59 year old male is admitted to hospital through the emergency room where he presented with recurrent falls and ICD discharges. This patient has a history of nonischemic cardiomyopathy, atrial fibrillation, congestive heart failure, ventricular arrhythmia and atrial fibrillation. He apparently has been in his baseline state of health up until 3 days ago when he started feeling easy fatigability and generalized weakness. This morning he got up around 5:00 and went into the bathroom to take a shower. While taking a shower, he felt extremity weak. As he was trying to get out of the shower, he fell into the bathroom. He was finding it difficult to get up. Somehow he managed to get to his bedroom, crawling on his belly. He slept on the floor and got up around 8:00. He was getting ready to go to work. He was still feeling very weak and tired. As he was getting out of the house, he again was finding it difficult to navigate and he fell off the porch. His neighbor called the ambulance and he was brought to the emergency room. While he was in the bathroom floor, the intraventricular conduction delay went off couple of times. Patient did not have any syncopal episodes. He denies any chest pain or shortness of breath. Denies having any fever or chills. He had a cardiac catheterization in 2019 and was found to no significant obstructive coronary artery disease. He had the AICD implanted in April 2021-a single lead device. According the patient, since implantation, the device went off few times. His LV ejection fraction was around 10 to 15% by the most recent echocardiogram in 2020. Patient has a history of atrial fibrillation, COPD/sleep apnea, smoking abuse, type 2 diabetes. Review of Systems 2 Narrative: CONSTITUTIONAL: No fever or chills. Extreme weakness/fatigue as mentioned above EYES: No blurring of vision or other visual disturbances lately. ENT: No hoarseness of voice, auditory disturbances or sore throat. CARDIOVASCULAR: As mentioned above. RESPIRATORY: No significant cough. GASTROINTESTINAL: No hematemesis or melena. GENITOURINARY: No dysuria or hematuria. INTEGUMENTARY: No skin rashes or history of skin cancer. NEURO: No transient ischemic attacks or amaurosis. PSYCHIATRIC: No history of psychosis or major depression. HEMATOLOGIC: No bleeding disorders or significant anemia. ENDOCRINE: No history of polyuria or polydipsia. MUSCULOSKELETAL: No recent joint pain or swelling. ALLERGY/IMMUNOLOGY: As mentioned above. Medications/Allergies Home Medications Medication Instructions Recorded Confirmed Last Taken Type multivitamin (Multiple Vitamins 1 tab PO DAILY 09/19/20 12/29/23 09/10/22 History tablet) apixaban 5 mg tablet (Eliquis) 5 mg PO BID #60 tabs 10/06/20 12/29/23 09/10/22 Rx glucometer testing kit #1 ea 04/28/21 12/29/23 Unknown Rx furosemide 40 mg tablet 40 mg PO DAILY 05/02/21 12/29/23 09/10/22 History lisinopril 10 mg tablet 5 mg PO DAILY 09/10/22 12/29/23 09/10/22 History metoprolol tartrate 50 mg tablet 25 mg PO DAILY 09/10/22 12/29/23 09/10/22 History potassium chloride 20 mEq 40 meq PO DAILY 09/10/22 12/29/23 09/10/22 History tablet,extended release Allergies Allergy/AdvReac Type Severity Reaction Status Date / Time No Known Allergies Allergy Verified 12/29/23 08:55 Current Medications Generic Name Dose Route Start Last Admin Trade Name Freq PRN Reason Stop Dose Admin Enoxaparin Sodium 80 mg 04/22/24 13:30 04/22/24 14:19 Enoxaparin 80 Mg/0.8 Ml Syringe SUBCUT 80 mg Q24H ANAY Administration Amiodarone HCl/Dextrose 360 mg in 200 mls @ 0 mls/hr 04/22/24 10:21 04/22/24 10:31 Nexterone IV 1 mg/min .Q0M ANAY 33.33 mls/hr Administration Protocol Per Protocol Magnesium Oxide 400 mg 04/22/24 13:00 04/22/24 14:19 Magnesium Oxide 400 Mg Tablet PO 400 mg BID AANY Administration PFSH Acute 2 PFSH: Medical History ICD (implantable cardioverter-defibrillator) in place Coronary artery disease Obstructive sleep apnea -severe per sleep study on 03/2019 NSVT (nonsustained ventricular tachycardia) HFrEF (heart failure with reduced ejection fraction) Hypertension Atrial fibrillation Community acquired pneumonia Chest pain CHF (congestive heart failure) Surgical History Status post bilateral knee replacements Family History Grandmother Hypertension Social History Smoking and tobacco/nicotine status: current some day tobacco/nicotine user cigarettes Packs smoked per day: 0.5 Years cigarettes smoked: 39 Alcohol intake: former Year of sobriety/quit date alcohol: 1 month ago Former alcohol use details: Half a pint of vodka, beer use daily Substance/Drug Use: never Vitals/I&O/Wt Last Vital Signs Temp 98.3 F 04/22/24 09:35 Pulse 99 04/22/24 14:39 Resp 18 04/22/24 14:39 BP 127/90 04/22/24 11:41 Pulse Ox 100 04/22/24 14:39 O2 Del Method Room Air 04/22/24 14:39 04/22/24 04/22/24 04/22/24 06:59 14:59 22:59 Intake Total 2900 / 2900 Balance 2900 / 2900 Weight last 48 hrs Weight 192 lb 14.4 oz Weight 182 lb Physical Exam 2 Narrative: GENERAL: The patient is alert and oriented times three. Not in any acute distress. HEENT: No significant pallor, icterus or lymphadenopathy.Oral cavity: There are no mucous membrane lesions. NECK: Trachea appears to be central. No masses noted. No JVD or thyromegaly appreciated. RESPIRATORY: Chest is symmetrical. No intercostals muscle retraction or any accessory muscle activation. There is no chest wall tenderness. Breath sounds are heard bilaterally. No rales or rhonchi heard. No evidence of any consolidation. BREASTS: Deferred. HEART: The heart sounds are normal. No S3 or S4. No significant murmurs. No pericardial rub ABDOMEN: No vessel pulsations or distention. No tenderness. No organomegaly appreciated. Bowel sounds are normally heard. : Deferred. RECTAL: Deferred. LYMPHATIC: No lymphadenopathy noted in the neck. EXTREMITIES: No edema or cyanosis. No clubbing. MUSCULOSKELETAL: No acute joint deformities or swelling SKIN: There are no significant rashes or ecchymosis NEUROPSYCHIATRIC: The patient is alert and oriented x3. Appears to be in a good mood. No tremors or rigidity noted. Urinary Catheter Management: Ramirez: Cath Placed During This Visit: yes Urinary Catheter Date of Insertion: 04/22/24 Urinary Catheter Time of Insertion: 14:20 Data 04/22/24 09:57 04/22/24 09:57 Other Labs: Laboratory Last Values WBC 24.15 10^3/uL (3.29-11.43) H 04/22/24 09:57 RBC 4.79 10^6/uL (3.85-5.65) 04/22/24 09:57 Hgb 16.20 g/dL (11.27-16.99) 04/22/24 09:57 Hct 45.9 % (37-53) 04/22/24 09:57 MCV 95.8 fl (82-101) 04/22/24 09:57 MCH 33.8 pg (27-33) H 04/22/24 09:57 MCHC 35.3 g/dL (30-55) 04/22/24 09:57 RDW 12.2 % (12.1-15.1) 04/22/24 09:57 Plt Count 177 10^3/cmm (157-399) 04/22/24 09:57 MPV 9.9 fL (7.4-10.4) 04/22/24 09:57 Neut % (Auto) 87.6 % 04/22/24 09:57 Lymph % (Auto) 3.9 % 04/22/24 09:57 Shackelford % (Auto) 7.0 % 04/22/24 09:57 Eos % (Auto) 0.0 % 04/22/24 09:57 Baso % (Auto) 0.5 % 04/22/24 09:57 Neut # (Auto) 21.17 10^3/uL (1.8-7.7) H 04/22/24 09:57 Lymph # (Auto) 1.0 10^3/uL (0.8-4.8) 04/22/24 09:57 Shackelford # (Auto) 1.7 10^3/uL (0.2-0.9) H 04/22/24 09:57 Eos # (Auto) 0.0 10^3/uL (0.0-0.8) 04/22/24 09:57 Baso # (Auto) 0.1 10^3/uL (0.0-0.1) 04/22/24 09:57 Nucleated RBC % (auto) 0 % 04/22/24 09:57 Nucleated RBCs # 0.0 /100WBC 04/22/24 09:57 PT 19.40 SECONDS (12.1-14.9) H 04/22/24 09:57 INR 1.58 (0.8-1.2) H 04/22/24 09:57 Specimen Type Arterial 04/22/24 10:45 Sample Site Radial, right 04/22/24 10:45 ABG pH 7.38 (7.35-7.45) 04/22/24 10:45 ABG pCO2 24.5 mmHg (35-45) L 04/22/24 10:45 ABG pO2 78.3 mmHg (80.0-100.0) L 04/22/24 10:45 ABG PO2/FiO2 Ratio 0 04/22/24 10:45 ABG HCO3 14.6 mmol/L (22-26) L 04/22/24 10:45 ABG Base Excess -8.4 mmol/L (-2.0-2.0) L 04/22/24 10:45 [facility] Test Pos 04/22/24 10:45 Hematocrit 47.8 % (42-52) 04/22/24 10:45 O2 Delivery Device Room air 04/22/24 10:45 FiO2 21.0 % 04/22/24 10:45 Retail Leasing Agent ID glc 04/22/24 10:45 Sodium 125 mmol/L (136-145) L 04/22/24 09:57 Potassium 4.4 mmol/L (3.5-5.1) 04/22/24 09:57 Chloride 94 mmol/L (98-107) L 04/22/24 09:57 Carbon Dioxide 11 mmol/L (22-29) L 04/22/24 09:57 Anion Gap 24.4 (5-19) H 04/22/24 09:57 BUN 20 mg/dL (6-20) 04/22/24 09:57 Creatinine 2.4 mg/dL (0.7-1.2) H 04/22/24 09:57 GFR Calculation 27.8 mL/min (90-130) L 04/22/24 09:57 Glucose 138 mg/dL (65-115) H 04/22/24 09:57 Calculated Osmolality 265 mOsm/kg (285-295) L 04/22/24 09:57 Lactic Acid 6.9 mmol/L (0.5-2.2) H* 04/22/24 09:57 Lactic Acid (Sepsis) 1.7 mmol/L (0.5-2.2) 04/22/24 13:38 Calcium 8.7 mg/dL (8.5-10.5) 04/22/24 09:57 Magnesium 1.8 mg/dL (1.7-2.3) 04/22/24 09:57 Total Bilirubin 0.6 mg/dL (0.15-1.2) 04/22/24 09:57 AST 89 U/L (0-40) H 04/22/24 09:57 ALT 34 U/L (0-41) 04/22/24 09:57 Alkaline Phosphatase 81 U/L (40-130) 04/22/24 09:57 Troponin T Baseline 114 ng/L (0-15) H* 04/22/24 09:57 Troponin T 120 Minute 79.37 ng/L (0-15) H 04/22/24 12:21 Delta Troponin T -34.63 ABS# (0-10) L 04/22/24 12:21 Troponin T Hi Sens 6Hr 63.95 ng/L (0-15) H 04/22/24 15:40 Troponin T Hi Sens 6Hr Delta -50.05 ng/L (0-12) L 04/22/24 15:40 NT-Pro-B Natriuret Pep 1206 pg/mL (0-125) H 04/22/24 09:57 Total Protein 7.5 g/dL (6.6-8.7) 04/22/24 09:57 Albumin 3.6 g/dL (3.5-5.2) 04/22/24 09:57 Globulin 3.9 g/dL (1.3-4.6) 04/22/24 09:57 Procalcitonin 25.57 ng/mL (0-0.5) H 04/22/24 09:57 Micro: Microbiology 04/22/24 13:38 Blood Culture - Preliminary Blood SPECIMEN COLLECTED 04/22/24 13:38 Blood Culture - Preliminary Blood SPECIMEN COLLECTED Other data: Chest x-ray from today 04/22/2024 Left upper lobe infiltrate EKG from today-04/22/2024 Normal sinus rhythm with first-degree AV block, nonspecific IVCD, low voltage complex in the precordial leads and some nonspecific ST changes Cardiac catheterization on 10/02/2020 * Left main artery: Minor irregularities noted. LAD: Minor irregularities are noted. It gives rise to a large diagonal branch. In the mid to distal segment, it gives rise to a large septal branch which almost forms a dual LAD system. No significant stenosis noted. Left circumflex artery: No significant stenosis is noted. It is a large vessel which gives rise to a large OM branch. Ramus intermedius artery: It is a large vessel that has diffuse disease in the distal segment. RCA: RCA has an anterior takeoff. It is a tortuous vessel. No significant stenosis is noted. . * Right heart cath findings: RA pressure: 22 mmHg(mean pressure) RV pressure: 53/17(mean 20 mmHg) PA pressure: 59/38(mean 46 mmHg) Wedge pressure:Recorded as mean 34 mmHg. LVEDP was 22 mmHg, I do not think this was an accurate wedge pressure and will take 22 mmHg for left-sided pressure. Cardiac output: 3.2 L/min . * No significant disease noted in the Left Main, LAD, Circumflex, or RCA coronary arteries. * Coronary angiography shows right dominance Most recent echocardiogram on 04/21/2021 Severely reduced LV systolic function with EF of 10-15% RV function is severely reduced Biatrial enlargement Trace pulmonic regurgitation Compared to prior echocardiogram from 09/20/2021, LV systolic function has further decreased to 10-15% A&P Assessment and plan (1) Implantable cardioverter-defibrillator (ICD) discharge: Patient apparently had the device discharge. Will go ahead and interrogate the device to see further details. (2) Non-ischemic cardiomyopathy: Patient is known to have severe LV systolic dysfunction. Will continue to optimize medical treatment. Because of the acute kidney injury, we may have to hold off on some of his medications. (3) HFrEF (heart failure with reduced ejection fraction): He will be carefully treated with IV diuretics. (4) Atrial fibrillation: Since there is no evidence of any active bleed or hematoma, the oral anticoagulation may be continued. Qualifiers: Atrial fibrillation type: persistent (not longstanding) Qualified Code(s): I48.19 - Other persistent atrial fibrillation (5) Type 2 diabetes mellitus: May continue on the current management. Qualifiers: Diabetes mellitus [facility] insulin use: without joint terminal attack controller use Diabetes mellitus complication status: without complication Qualified Code(s): E11.9 - Type 2 diabetes mellitus without complications (6) Pneumonia: Patient is on IV antibiotics. Management as per the primary. Qualifiers: Pneumonia type: due to unspecified organism Laterality: left Lung location: upper lobe of lung Qualified Code(s): J18.9 - Pneumonia, unspecified organism Plan Other problems are Acute kidney injury Hyponatremia Ongoing smoking abuse COPD/sleep apnea Based on the results of the above tests and the patient's clinical progress, further recommendations will be made. Thank you for the opportunity to evaluate this patient and make these recommendations Consult Attestations 2 Medical Necessity Statement: Patient requires continued hospital stay for close monitoring and further management Coding Level of Care Code 55573 Diagnoses Implantable cardioverter-defibrillator (ICD) discharge Z45.02 Non-ischemic cardiomyopathy I42.8 HFrEF (heart failure with reduced ejection fraction) I50.20 Persistent atrial fibrillation I48.19 Atrial fibrillation type: persistent (not longstanding) Type 2 diabetes mellitus without complication, without long-term current use of insulin E11.9 Diabetes mellitus joint terminal attack controller insulin use: without [facility] use Diabetes mellitus complication status: without complication Pneumonia of left upper lobe due to infectious organism J18.9 Pneumonia type: due to unspecified organism Laterality: left Lung location: upper lobe of lung
[2024-04-22 16:37] LABS: Troponin 5 6HR 63.95 ng/L (0-15)
[2024-04-22 16:46] LABS: Troponin 5 6HR Delta -50.05 ng/L (0-12)
[2024-04-22] MEDS: lisinopril 10 mg Tablet PO (17:47)
[2024-04-22] MEDS: doxycycline 100 mg Tablet PO (17:47)
[2024-04-22] MEDS: amlodipine 5 mg Tablet PO (17:47)
[2024-04-22] MEDS: LORazepam 2 mg/mL INJ 10 mL MDV IVP (19:52)
[2024-04-22] MEDS: hyDRALAzine 20 mg/mL INJ 1 mL 5 MG IVP (19:54)
--- NOTE | 2024-04-22 20:02 | XRR_ITS ---
PROCEDURE INFORMATION: Exam: XR Chest Exam date and time: 04/22/2024 8:09 PM Age: 59 years old Clinical indication: Shortness of breath; Prior surgery; Surgery date: 6+ months; Surgery type: Pacemaker; Additional info: SOB TECHNIQUE: Imaging protocol: Radiologic exam of the chest. Views: 1 view. COMPARISON: CR XR chest 1V portable [id number] 04/22/2024 9:50 AM FINDINGS: Tubes, catheters and devices: Left-sided pacemaker. Lungs: Right hilar to lower lobe and left upper lobe pneumonic infiltrates. Pleural spaces: Unremarkable. No pleural effusion. No pneumothorax. Heart/Mediastinum: Cardiomegaly. Bones/joints: Unremarkable. XR/XR chest 1V portable [id number] IMPRESSION: 1. Right hilar to lower lobe and left upper lobe pneumonic infiltrates. 2. Left-sided pacemaker. 3. Cardiomegaly.
[2024-04-22] MEDS: FUROsemide 10 mg/mL SDV 10mL 60 MG IVP (20:11)
--- NOTE | 2024-04-22 20:21 | PC.NURSE ---
SOB: During initial assessment pt is SOB, RR 35, coughing occasionally, restless in bed. Crackles in lungs. Pt states he is out of his lasix pill and has not taken it for at least a week. Dr. Liz called @1956. New order for 60 IVP Lasix ONCE NOW and to initiate BIPAP. RT, Rabia on floor and made aware. HOB is at 30 degrees, pt is refusing to sit up higher than that.
--- NOTE | 2024-04-22 20:47 | PC.NURSE ---
Fever: Pt is warm to touch, sweating, Axillary temp 103.7 (checked under both arms). Dr. Liz on floor, verbal order for 1gram Acetaminophen IV ONCE NOW. BiPAP is in place, RR 35.
[2024-04-22] MEDS: acetaminophen 1,000 MG/100 ML PIGGYBACK 400 MG IV (20:52)
[2024-04-23] VITALS (70 sets, daily range): BP systolic 81–189; BP diastolic 51–127; PULSE 74–138; RESP 20–44; TEMP 36.7–39.8; O2SAT 92–100
[2024-04-23] MEDS: LORazepam 2 mg/mL INJ 10 mL MDV IVP ×2 (01:06→05:26)
--- NOTE | 2024-04-23 01:28 | PC.NURSE ---
Addendum entered by Annel Dwyer RN 04/23/24 03:33: 0149- Called Dr. Liz to update on ABG results/current vitals- No answer 0150- Volt ABG results- No answer 0201- Called Dr. Liz- No answer 0250- Phone call w/ Dr. Liz, new order to draw morning labs early, discussed ABG results. 0300- Dr. Liz on unit to see pt. Verbal order to give 500ml NS bolus ONCE NOW and Bicarb drip 150meq continuous @100ml/hr. Original Note: SOB: Dr. Liz called to updated on increased work of breathing, SOB, increased RR. New order for stat ABG. RT, Rabia at bedside.
[2024-04-23 01:44] LABS: ABG PCO2 24.5 mmHg (35-45); ABG PH Result 7.35 (7.35-7.45); Arterial Blood Gas Hematocrit 51.2 % (42-52); Blood Gas Allen Test Pos; Blood Gas Operator Identificat JB; Blood Gas Sample Site Radial, right; Blood Gas Sample Type Arterial; Carboxyhemoglobin 0.7 %THgb (0.4-20.1); HCO3 ABG 13.4 mmol/L (22-26); HGB O2 Sat 96.4 % (95-100); Ionized Calcium Level - ABG 1.1 mmol/L (1.1-1.4); Methemoglobin 0.3 % (0.4-1.5); Oxygen Device BIPAP; Oxygen Saturation ABG 97.4; Potassium Level - ABG 3.8 mmol/L (3.5-5.0); Total Hemoglobin 16.7 g/dL (14-18)
[2024-04-23 01:45] LABS: Alveolar-Arterial Oxygen Gradi 11.5 mmHg (5-10); PO2 FiO2 Ratio Arterial Blood 0
[2024-04-23 03:20] LABS: Basophils # 0.1 10^3/uL (0.0-0.1); Basophils % 0.4 %; Eosinophils % 0.2 %; Hematocrit 40.5 % (37-53); Lymphocytes # 0.6 10^3/uL (0.8-4.8); Lymphocytes % 2.8 %; Mean Corpuscular HGB Conc 35.1 g/dL (30-55); Mean Corpuscular Hemoglobin 33.6 pg (27-33); Mean Platelet Volume 10.1 fL (7.4-10.4); Monocytes # 0.5 10^3/uL (0.2-0.9); Monocytes % 2.6 %; Neutrophils # 18.45 10^3/uL (1.8-7.7); Neutrophils % 93.3 %; Nucleated Red Blood Cells % 0 %; Platelet Count 162 10^3/cmm (157-399); Red Blood Count 4.22 10^6/uL (3.85-5.65); Red Cell Distribution Width 12.5 % (12.1-15.1); White Blood Count 19.75 10^3/uL (3.29-11.43)
[2024-04-23] MEDS: sodium chloride 0.9% 500 ML 999 ML IV ×2 (03:27→04:19)
[2024-04-23 03:41] LABS: Lactic Sepsis W/Reflex 1.6 mmol/L (0.5-2.2)
[2024-04-23] MEDS: sodium bicarbonate 150 MEQ in dextrose 5% 1,000 ML 100 MEQ IV ×2 (03:51→14:02)
[2024-04-23 03:53] LABS: Blood Urea Nitrogen 29 mg/dL (6-20); Calcium 7.7 mg/dL (8.5-10.5); Carbon Dioxide 14 mmol/L (22-29); Chloride 98 mmol/L (98-107); Glomerular Filtration Rate 24.3 mL/min (90-130); Glucose 111 mg/dL (65-115); Magnesium 2.7 mg/dL (1.7-2.3); Osmolality Calculated 273 mOsm/kg (285-295); Phosphorus 4.6 mg/dL (2.5-4.5); Sodium 128 mmol/L (136-145)
[2024-04-23 04:06] LABS: C Reactive Protein 460.9 mg/L (0.0-4.9)
[2024-04-23] MEDS: piperacillin-tazobactam 3.375 GM in sodium chloride 0.9% (plus) 50 ML IV ×2 (04:11→11:58)
[2024-04-23] MEDS: hyDRALAzine 20 mg/mL INJ 1 mL 5 MG IVP (06:18)
[2024-04-23] MEDS: vancomycin 1,500 MG/300 ML PIGGYBACK 150 MG IV (07:41)
--- NOTE | 2024-04-23 08:01 | XRR_ITS ---
PROCEDURE INFORMATION: Exam: XR Chest Exam date and time: 04/23/2024 8:21 AM Age: 59 years old Clinical indication: Dyspnea; Additional info: Respiratory distress TECHNIQUE: Imaging protocol: Radiologic exam of the chest. Views: 1 view. COMPARISON: CR (CHEST, ) 04/22/2024 8:09 PM FINDINGS: Tubes, catheters and devices: Cardiac pacemaker with intact lead. Lungs: Mild increase in the left mid lung zone consolidation. Pleural spaces: Unremarkable. No pleural effusion. No pneumothorax. Heart/Mediastinum: No cardiomegaly. Vasculature: Unfolding of the aorta. Bones/joints: Moderate degenerative disease bilateral acromioclavicular joints. XR/XR chest 1V portable [id number] IMPRESSION: Mild increase in the left mid lung zone consolidation.
[2024-04-23] MEDS: acetaminophen 1,000 MG/100 ML PIGGYBACK 400 MG IV (08:08)
[2024-04-23] MEDS: methylPREDNISolone sod succ 125 mg/2 mL INJ IVP (08:11)
[2024-04-23] MEDS: doxycycline 100 MG in sodium chloride 0.9% (plus) 100 ML IV ×2 (08:16→19:48)
[2024-04-23] MEDS: dexmedeTOMIDine 0.9 % NaCL 400 MCG/100 ML PREMIX 2.16000000000000014 MCG IV (08:55)
[2024-04-23] MEDS: ipratropium-albuterol 3 mL Neb INHALATION ×5 (09:11→20:07)
[2024-04-23] MEDS: FUROsemide 10 mg/mL SDV 10mL 80 MG IVP (09:27)
[2024-04-23] MEDS: thiamine 500 MG in sodium chloride 0.9% (100 ml) 100 ML 210 MG IV (09:38)
[2024-04-23 10:17] LABS: NT Pro B Type Natriuretic Pept 3065 pg/mL (0-125)
[2024-04-23 10:41] LABS: Procalcitonin > 100.00 ng/mL (0-0.5)
--- NOTE | 2024-04-23 12:00 | PC.NURSE ---
3 vials of sodium bicarb were pulled for the patient in ICU 4 and overridden by pattern chart writer due to respiratory distress.
--- NOTE | 2024-04-23 12:46 | XRR_ITS ---
PROCEDURE INFORMATION: Exam: XR Chest Exam date and time: 04/23/2024 1:29 PM Age: 59 years old Clinical indication: Device placement; Prior surgery; Surgery date: 6+ months; Surgery type: Pacemaker; Patient HX: Post RT picc insertion; Additional info: Post picc insertion, kirstin placing in icu 4. Should be ready at 1330 TECHNIQUE: Imaging protocol: Radiologic exam of the chest. Views: 1 view. COMPARISON: CR (CHEST, ) 04/23/2024 8:21 AM FINDINGS: Tubes, catheters and devices: There is a right arm PICC with the tip in the superior vena cava. There is a left subclavian AICD. Lungs: Left mid lung zone airspace disease redemonstrated, but partially obscured on the current study by the AICD generator. Pleural spaces: No pleural effusion or pneumothorax. Heart/Mediastinum: The cardiac silhouette is not enlarged. The mediastinal contours are normal. Bones/joints: No acute osseous abnormality XR/XR chest 1V portable [id number] IMPRESSION: PICC tip in the superior vena cava
[2024-04-23 12:47] LABS: ABG PCO2 23.2 mmHg (35-45); ABG PH Result 7.41 (7.35-7.45); Alveolar-Arterial Oxygen Gradi 3.2 mmHg (5-10); Arterial Blood Gas Hematocrit 39.2 % (42-52); Base Excess ABG -7.9 mmol/L (-2.0-2.0); Blood Gas Allen Test Pos; Blood Gas Operator Identificat BROMA; Blood Gas Sample Site Radial, right; Blood Gas Sample Type Arterial; Carboxyhemoglobin 1.1 %THgb (0.4-20.1); HCO3 ABG 14.8 mmol/L (22-26); HGB O2 Sat 96.9 % (95-100); Methemoglobin 0.4 % (0.4-1.5); Oxygen Device BIPAP; Oxygen Saturation ABG 98.4; PO2 ABG 93.7 mmHg (80.0-100.0); PO2 FiO2 Ratio Arterial Blood 0; Potassium Level - ABG 3.5 mmol/L (3.5-5.0); Total Hemoglobin 12.8 g/dL (14-18)
--- NOTE | 2024-04-23 12:48 | ECG_ITS ---
[facility] Test Date: 2024-04-23 Pat Name: Zach Austin Department: Room: [facility] Gender: Male Care Connector: : 1965 Requested By: Ruy Sears Order Number: [id number] Anna Marie MD: Phyllis Grayson M.D. Measurements Intervals [place] Rate: 76 P: 35 HI: 240 QRS: 77 QRSD: 115 T: 61 QT: 404 QTc: 455 Interpretive Statements SINUS RHYTHM WITH FIRST DEGREE AV BLOCK POSSIBLE LEFT ATRIAL ENLARGEMENT [-0.1mV P-WAVE IN V1/V2] LOW QRS VOLTAGE IN PRECORDIAL LEADS [QRS DEFLECTION < 1.0 mV IN CHEST LEADS] MODERATE INTRAVENTRICULAR CONDUCTION DELAY [110+ ms QRS DURATION] EARLY REPOLARIZATION [ST ELEVATION WITH NORMALLY INFLECTED T-WAVE] Compared to ECG 04/22/2024 13:54:44 ST (T wave) deviation no longer present Electronically Signed On 04-23-2024 20:22:59 CDT by Phyllis Grayson M.D. [email or web address]
--- NOTE | 2024-04-23 13:26 | P.PN_ITS ---
Subjective 2 Subjective: Patient is severely encephalopathic. He is unable provide any useful history. History obtained from discussion with bedside ICU nurse and chart review. Medications: Reviewed: Yes Vitals/I&O/Wt Last Vital Signs Temp 98.6 F 04/23/24 12:00 Pulse 82 04/23/24 12:00 Resp 29 H 04/23/24 12:00 BP 94/60 04/23/24 12:00 Pulse Ox 95 04/23/24 12:00 O2 Del Method BiPAP 04/23/24 12:00 FiO2 21 04/23/24 11:31 04/22/24 04/23/24 04/23/24 22:59 06:59 14:59 Intake Total 369.164 / 3269.164 1369.706 / 4638.870 672.668 / 672.668 Output Total 900 / 900 1050 / 1950 Balance -530.836 / 2369.164 319.706 / 2688.870 672.668 / 672.668 Weight last 48 hrs Weight 86.5 kg Weight 87.498 kg Weight 82.554 kg Physical Exam 2 Narrative: General: Patient is encephalopathic. In respiratory distress. Head: Normocephalic. Atraumatic. Neck: No JVD. Cardiovascular: RRR. No gallops. No murmurs. Trace pedal edema. Lungs: Bilateral rhonchi with faint wheeze. Using accessory muscles. Tachypneic. In respiratory distress. Skin: No jaundice. No rashes. Abdomen: Hypoactive bowel sounds, abdomen soft. Extremities: No cyanosis or clubbing. Musculoskeletal: No erythematous joints. Neurological: Moves all 4 extremities. No myoclonus. Encephalopathic. Urinary Catheter Management: Ramirez: Cath Placed During This Visit: yes Reason for Continuing Indwelling Catheter: Accurate Measurement of Urinary Output in Critically Ill Patients Urinary Catheter Date of Insertion: 04/22/24 Urinary Catheter Time of Insertion: 14:20 Data 04/23/24 03:15 04/23/24 03:15 Micro: Microbiology 04/22/24 13:38 Blood Culture - Preliminary Blood SPECIMEN COLLECTED 04/22/24 13:38 Blood Culture - Preliminary Blood SPECIMEN COLLECTED A&P Assessment and plan (1) Septic shock: Source: Pneumonia Start Levophed for MAP goal of 65 mmHg Holding home antihypertensives Continue broad-spectrum antibiotics Follow blood cultures Continuous telemetry monitoring (2) Pneumonia: Antibiotics as above Optimize respiratory function Start Precedex Qualifiers: Laterality: left Lung location: upper lobe of lung Pneumonia type: due to unspecified organism Qualified Code(s): J18.9 - Pneumonia, unspecified organism (3) Acute renal failure: Renal function is worsening Strict I's and O's with Ramirez Daily weights Continue bicarb drip for metabolic acidosis Lasix times once Consider nephrology consultation pending renal function course (4) Acute metabolic encephalopathy: He remains extremely altered Seems to still be protecting airway for now, high risk for intubation Hold oral medications as needed due to his mentation Rotating medications to IV formulations as appropriate (5) Head injury: Serial neurologic exams Treat underlying metabolic disorder and sepsis May need additional head imaging pending clinical course (6) Non-ischemic cardiomyopathy: Reports of ICD firing ICD is reportedly been interrogated by cardiology, follow-up results Continue amiodarone drip (7) HFrEF (heart failure with reduced ejection fraction): Unable to find recent echo on chart Strict I's and O's Daily weights Monitor BNP Lasix times once today (8) Atrial fibrillation: Chronic atrial fibrillation Continue amiodarone drip Continue Lovenox for therapeutic anticoagulation, may need to adjust based on renal function Qualifiers: Atrial fibrillation type: persistent (not longstanding) Qualified Code(s): I48.19 - Other persistent atrial fibrillation (9) NSTEMI (non-ST elevated myocardial infarction): Suspect presentation is more demand ischemia Cardiology is consulted, appreciate recommendations (10) Implantable cardioverter-defibrillator (ICD) discharge: ICD discharge x 2 as noted above (11) Alcohol use: Patient unable to provide recent alcohol usage history Suspect component of possible alcohol withdrawal Continue thiamine, will use Warnicke dosing given encephalopathy CIWA protocol (12) Tobacco use: Suspect there could be a component of COPD Will start systemic steroids and monitor response Continue with breathing treatments Plan DVT prophylaxis: Lovenox CODE STATUS: Full code Attestations 2 Medical Necessity Statement*: Patient requires ongoing hospitalization for treatment of septic shock with IV vasopressors, IV fluids, serial neurological exams, respiratory support, and supportive care. Critical Care Time: The high probability of a clinically significant, sudden or life threatening deterioration of the patient's cardiovascular with septic shock requiring initiation of vasopressor support, acute metabolic encephalopathy, renal failure system(s) required my full and direct attention, intervention and personal management. The critical care time is as shown. This time is in addition to time spent performing any reported procedures but includes the following: [x] Data and vital sign review and interpretation [x] Patient assessment, examination and intervention [x] Documentation [x] Medication orders and management Critical Care Time (min): 60 Coding Level of Care Code Acute Code for Chg Fwd Diagnoses Septic shock A41.9; R65.21 Pneumonia of left upper lobe due to infectious organism J18.9 Laterality: left Lung location: upper lobe of lung Pneumonia type: due to unspecified organism Acute renal failure N17.9 Acute metabolic encephalopathy G93.41 Head injury S09.90XA Non-ischemic cardiomyopathy I42.8 HFrEF (heart failure with reduced ejection fraction) I50.20 Persistent atrial fibrillation I48.19 Atrial fibrillation type: persistent (not longstanding) NSTEMI (non-ST elevated myocardial infarction) I21.4 Implantable cardioverter-defibrillator (ICD) discharge Z45.02 Alcohol use Z78.9 Tobacco use Z72.0
--- NOTE | 2024-04-23 13:30 | PICC.NOTE ---
Triple lumen PICC placed to right basilic vein. Referred to vascular access nurse for PICC placement due to poor access, septic shock and need for vasopressors. Pt sedated and no next of kin phone numbers listed. Consent obtained emergently per Dr. Shah. Right arm assessed with right basilic vein measuring 3.5 mm, straight, and apparent best choice for placement. Using sterile technique and MST, right basilic vein accessed x 1 stick. Mid-arm circumference measured 10 cm from right AC 30 cm. Trimmed cath 46 cm with 0 cm external length noted. CXR shows tip in SVC, in good position for use per radiologist. Line secured with stat-lock. Insertion site covered with Biopatch, gauze, and TSM. Report given to bedside nurse, VARGHESE Solomon.
[2024-04-23] MEDS: methylPREDNISolone sod succ 40 mg/mL INJ IVP ×2 (14:07→19:50)
[2024-04-23] MEDS: enoxaparin 80 mg/0.8 mL Syringe SUBCUT (14:07)
[2024-04-23] MEDS: norepinephrine 4 MG/250 ML BAG 7.5 MG IV (14:13)
[2024-04-23] MEDS: cefepime 1,000 MG in sodium chloride 0.9% (plus) 50 ML 100 MG IV (14:18)
[2024-04-23 14:29] LABS: Alanine Aminotransferase 267 U/L (0-41); Albumin Level 2.6 g/dL (3.5-5.2); Alkaline Phosphatase 53 U/L (40-130); Anion Gap 19.7 (5-19); Aspartate Amino Transferase 577 U/L (0-40); Blood Urea Nitrogen 35 mg/dL (6-20); Carbon Dioxide 17 mmol/L (22-29); Chloride 97 mmol/L (98-107); Creatinine Clr Calc Pharmacy 21.1335; Globulin 2.8 g/dL (1.3-4.6); Glucose 215 mg/dL (65-115); Osmolality Calculated 284 mOsm/kg (285-295); Sodium 130 mmol/L (136-145); Total Bilirubin 0.3 mg/dL (0.15-1.2); Total Protein 5.4 g/dL (6.6-8.7)
[2024-04-23 14:30] LABS: Potassium 3.7 mmol/L (3.5-5.1)
--- NOTE | 2024-04-23 16:23 | P.CONIM_ITS ---
Providers/Reason For Consult 2 Consulting Physician/Specialty*: saman orellana md / telenephrology Reason for Consult*: LISSETTE Requesting Physician: Dr Keyshawn Shah Attending Physician: Ruy Shah MD Primary Care Provider: Barbi Mendenhall MD History of Present Illness History of Present Illness Zach Austin is a 59 year old male h/o HFrEF, AICD, DM, ETOH use. The Pt was admitted yesterday after falling and AICD fired twice. In hodpital was found w/ a fib and RVR. He was diagnosed w/ pna and NSTEMI. he was started on ivf, amiodarone, abx. Pt became lethargic overnight. has received 4 l ivf and now on bipap. he is somnolent. per RN, his breathing has improved. he is on low dose levophed and back in NSR. Renal called for anuric LISSETTE. cr on admission was 2.4, went to 2.7 and now 4.1 mg/dl. Review of Systems 2 Narrative: sedated, lethargic, not able to obtain Medications/Allergies Home Medications Medication Instructions Recorded Confirmed Last Taken Type multivitamin (Multiple Vitamins 1 tab PO DAILY 09/19/20 04/22/24 1 Day Ago History tablet) ~04/21/24 apixaban 5 mg tablet (Eliquis) 5 mg PO BID #60 tabs 10/06/20 04/22/24 1 Day Ago Rx ~04/21/24 glucometer testing kit #1 ea 04/28/21 04/23/24 Unknown Rx furosemide 40 mg tablet 40 mg PO DAILY 05/02/21 04/22/24 1 Week Ago History ~04/15/24 lisinopril 10 mg tablet 5 mg PO DAILY 09/10/22 04/22/24 3 Days Ago History ~04/19/24 metoprolol tartrate 50 mg tablet 25 mg PO DAILY 09/10/22 04/22/24 09/10/22 History potassium chloride 20 mEq 40 meq PO DAILY 09/10/22 04/22/24 1 Day Ago History tablet,extended release ~04/21/24 Allergies Allergy/AdvReac Type Severity Reaction Status Date / Time No Known Allergies Allergy Verified 12/29/23 08:55 Current Medications Generic Name Dose Route Start Last Admin Trade Name Freq PRN Reason Stop Dose Admin Albuterol/Ipratropium 3 ml 04/23/24 12:00 04/23/24 15:03 Ipratropium-Albuterol 3 Ml Neb INHALATION 3 ml Q4H.RESPIRATORY ANAY Administration Amlodipine Besylate 5 mg 04/22/24 17:05 04/22/24 17:47 Amlodipine 5 Mg Tablet PO 5 mg DAILY ANAY Administration Aspirin 81 mg 04/23/24 09:00 04/23/24 09:20 Aspirin 81 Mg Ec Tablet PO Not Given DAILY ANAY Clopidogrel Bisulfate 75 mg 04/23/24 09:00 04/23/24 09:20 Clopidogrel 75 Mg Tablet PO Not Given DAILY ANAY Enoxaparin Sodium 80 mg 04/22/24 13:30 04/23/24 14:07 Enoxaparin 80 Mg/0.8 Ml Syringe SUBCUT 80 mg Q24H ANAY Administration Amiodarone HCl/Dextrose 360 mg in 200 mls @ 0 mls/hr 04/22/24 10:21 04/23/24 15:03 Nexterone IV 0.5 mg/min .Q0M ANAY 16.67 mls/hr Administration Protocol Per Protocol Sodium Bicarbonate 150 meq/ 1,150 mls @ 100 mls/hr 04/23/24 03:15 04/23/24 14:02 Dextrose IV 100 mls/hr .[id number] ANAY Administration Doxycycline Hyclate 100 mg/ 100 mls @ 100 mls/hr 04/23/24 08:00 04/23/24 09:16 Sodium Chloride IV Infused Q12H ANAY Infusion Protocol Thiamine HCl 500 mg/ Sodium 105 mls @ 210 mls/hr 04/23/24 09:00 04/23/24 10:21 Chloride IV 04/26/24 08:59 Infused DAILY ANAY Infusion Acetaminophen 1,000 mg in 100 mls @ 400 mls/hr 04/23/24 08:00 04/23/24 08:31 Acetaminophen IV 04/24/24 00:14 Infused Q8H PRN Infusion Fever Dexmedetomidine/Sodium Chloride 400 mcg in 100 mls @ 0 mls/hr 04/23/24 09:00 04/23/24 12:03 Precedex IV 0.3 mcg/kg/hr .Q0M ANAY 6.49 mls/hr Titration Protocol Per Protocol norepinephrine 4 mg in 250 mls @ 0 mls/hr 04/23/24 12:15 04/23/24 14:13 Levophed IV 2 mcg/min .Q0M ANAY 7.5 mls/hr Administration Protocol Per Protocol Cefepime HCl 1,000 mg/ Sodium 50 mls @ 100 mls/hr 04/23/24 13:45 04/23/24 14:50 Chloride IV Infused Q12H ANAY Infusion Protocol Lisinopril 10 mg 04/22/24 17:05 04/22/24 17:47 Lisinopril 10 Mg Tablet PO 10 mg DAILY ANAY Administration Lorazepam 2 mg 04/22/24 17:30 04/23/24 05:26 Lorazepam 2 Mg/Ml Inj 10 Ml Mdv IVP 2 mg PRN PRN Administration WITHDRAWAL Protocol Methylprednisolone Sodium Succinate 40 mg 04/23/24 14:00 04/23/24 14:07 Methylprednisolone Sod Succ 40 Mg/Ml Inj IVP 40 mg Q6H ANAY Administration Metoprolol Tartrate 25 mg 04/23/24 09:00 04/23/24 09:20 Metoprolol Tartrate 25 Mg Tablet PO Not Given BID@0900,2100 ANAY PFSH Acute 2 PFSH: Medical History (Updated 04/23/24 @ 16:34 by Tyson Orellana MD) Sepsis Encounter for smoking cessation counseling ISAC (obstructive sleep apnea) Person under investigation for COVID-19 ICD (implantable cardioverter-defibrillator) in place Coronary artery disease Obstructive sleep apnea -severe per sleep study on 03/2019 NSVT (nonsustained ventricular tachycardia) HFrEF (heart failure with reduced ejection fraction) Hypertension Atrial fibrillation Community acquired pneumonia Chest pain CHF (congestive heart failure) Surgical History Status post bilateral knee replacements Family History Grandmother Hypertension Social History Smoking and tobacco/nicotine status: current some day tobacco/nicotine user cigarettes Packs smoked per day: 0.5 Years cigarettes smoked: 39 Alcohol intake: former Year of sobriety/quit date alcohol: 1 month ago Former alcohol use details: Half a pint of vodka, beer use daily Substance/Drug Use: never Vitals/I&O/Wt Last Vital Signs Temp 98.6 F 04/23/24 12:00 Pulse 84 04/23/24 15:03 Resp 24 H 04/23/24 15:03 BP 89/56 04/23/24 14:30 Pulse Ox 98 04/23/24 15:03 O2 Del Method BiPAP 04/23/24 15:03 FiO2 21 04/23/24 15:03 04/23/24 04/23/24 04/23/24 06:59 14:59 22:59 Intake Total 1369.706 / 4638.870 1741.001 / 1741.001 180.314 / 1921.315 Output Total 1050 / 1950 Balance 319.706 / 2688.870 1741.001 / 1741.001 180.314 / 1921.315 Weight last 48 hrs Weight 86.5 kg Weight 87.498 kg Weight 82.554 kg Physical Exam 2 Narrative: on bipap levo @ 2. BP improving, NSR lungs crackles heart reg+HSM abd soft, nt, nd, + bs ext no edema neuro- responds to pain Urinary Catheter Management: Ramirez: Cath Placed During This Visit: yes Reason for Continuing Indwelling Catheter: Accurate Measurement of Urinary Output in Critically Ill Patients Urinary Catheter Date of Insertion: 04/22/24 Urinary Catheter Time of Insertion: 14:20 Data 04/23/24 03:15 04/23/24 13:49 Other Labs: 7.41/ Micro: Microbiology 04/22/24 13:38 Blood Culture - Preliminary Blood NEGATIVE TO DATE 04/22/24 13:38 Blood Culture - Preliminary Blood NEGATIVE TO DATE A&P Assessment and plan (1) LISSETTE (acute kidney injury): 59 yr old man 1. pna 2. NSTEMI 3. LISSETTE - check u/a, ur na, osm, cr, pr. check renal us send amy, anca, hep profile -likely ATN -k is 3.7, bicarb is improving. pH 7.41- he is oxygenating better w/ BIPAP. -will repeat lasix -check cpk check renal us -if resp status worsens, he may need intubation or dialysis soon -h/o+ amy- in 2020- will repeat 4. hyponatremia- check cortisol, tsh. ur lytes likely from lissette and pna 5. inc LFT's- likely shocked liver seen and examined w/ RN- telehealth visit discussed w/ Dr Keyshawn Shah Consult Attestations 2 Medical Necessity Statement: septic shock, multi-orghan failure Time Spent in Patient Care: Greater than 35 minutes Critical Care Time: >45 min Coding Level of Care Code G0425 (30 min) Diagnoses LISSETTE (acute kidney injury) N17.9
[2024-04-23] MEDS: FUROsemide 10 mg/mL SDV 10mL 100 MG IVP (17:21)
--- NOTE | 2024-04-23 17:47 | P.PN_ITS ---
Subjective 2 Subjective: Patient became hypotensive and is currently on Levophed. The ICD interrogation report was reviewed. Patient apparently had overdrive pacing x 6 followed by ICD discharges x 2. Looks like he may have had atrial fibrillation with rapid ventricular rate Currently the patient has no chest pain. His echocardiogram revealed LV ejection fraction 55%, significant improvement from 15%, in 2021 Medications: Medication Review Details: Current Medications Acetaminophen (Acetaminophen 500 Mg Tablet) 1,000 mg PO Q6H PRN PRN Reason: fever Albuterol/Ipratropium (Ipratropium-Albuterol 3 Ml Neb) 3 ml INHALATION Q4H.RESPIRATORY ANAY Last Admin: 04/23/24 15:03 Dose: 3 ml Amlodipine Besylate (Amlodipine 5 Mg Tablet) 5 mg PO DAILY ANAY Last Admin: 04/22/24 17:47 Dose: 5 mg Aspirin (Aspirin 81 Mg Ec Tablet) 81 mg PO DAILY ANAY Last Admin: 04/23/24 09:20 Dose: Not Given Clopidogrel Bisulfate (Clopidogrel 75 Mg Tablet) 75 mg PO DAILY ANAY Last Admin: 04/23/24 09:20 Dose: Not Given Enoxaparin Sodium (Enoxaparin 80 Mg/0.8 Ml Syringe) 80 mg SUBCUT Q24H ANAY Last Admin: 04/23/24 14:07 Dose: 80 mg Amiodarone HCl/Dextrose (Nexterone) 360 mg in 200 mls @ 0 mls/hr IV .Q0M ANAY; Protocol Last Admin: 04/23/24 15:03 Dose: 0.5 mg/min, 16.67 mls/hr Sodium Bicarbonate 150 meq/ (Dextrose) 1,150 mls @ 100 mls/hr IV .[id number] [facility] Last Admin: 04/23/24 14:02 Dose: 100 mls/hr Vancomycin HCl 1,000 mg/ (Sodium Chloride) 250 mls @ 250 mls/hr IV Q24H ANAY Doxycycline Hyclate 100 mg/ (Sodium Chloride) 100 mls @ 100 mls/hr IV Q12H [facility]; Protocol Last Infusion: 04/23/24 09:16 Dose: Infused Thiamine HCl 500 mg/ Sodium (Chloride) 105 mls @ 210 mls/hr IV DAILY ANAY Stop: 04/26/24 08:59 Last Infusion: 04/23/24 10:21 Dose: Infused Acetaminophen (Acetaminophen) 1,000 mg in 100 mls @ 400 mls/hr IV Q8H PRN PRN Reason: Fever Stop: 04/24/24 00:14 Last Infusion: 04/23/24 08:31 Dose: Infused Dexmedetomidine/Sodium Chloride (Precedex) 400 mcg in 100 mls @ 0 mls/hr IV .Q0M ANAY; Protocol Last Titration: 04/23/24 12:03 Dose: 0.3 mcg/kg/hr, 6.49 mls/hr norepinephrine (Levophed) 4 mg in 250 mls @ 0 mls/hr IV .Q0M ANAY; Protocol Last Admin: 04/23/24 14:13 Dose: 2 mcg/min, 7.5 mls/hr Cefepime HCl 1,000 mg/ Sodium (Chloride) 50 mls @ 100 mls/hr IV Q12H [facility]; Protocol Last Infusion: 04/23/24 14:50 Dose: Infused Lisinopril (Lisinopril 10 Mg Tablet) 10 mg PO DAILY [facility] Last Admin: 04/22/24 17:47 Dose: 10 mg Lorazepam (Lorazepam 2 Mg Tablet) 2 mg PO Q4H PRN; Protocol PRN Reason: WITHDRAWAL Lorazepam (Lorazepam 2 Mg/Ml Inj 10 Ml Mdv) 2 mg IM Q4H PRN; Protocol PRN Reason: ALCOHOL WITHDRAWAL Lorazepam (Lorazepam 2 Mg/Ml Inj 10 Ml Mdv) 2 mg IVP PRN PRN; Protocol PRN Reason: WITHDRAWAL Last Admin: 04/23/24 05:26 Dose: 2 mg Methylprednisolone Sodium Succinate (Methylprednisolone Sod Succ 40 Mg/Ml Inj) 40 mg IVP Q6H [facility] Last Admin: 04/23/24 14:07 Dose: 40 mg Metoprolol Tartrate (Metoprolol Tartrate 25 Mg Tablet) 25 mg PO BID@0900,2100 [facility] Last Admin: 04/23/24 09:20 Dose: Not Given Ondansetron HCl (Ondansetron 2 Mg/Ml Sdv 2 Ml) 4 mg IVP Q6H PRN PRN Reason: NAUSEA AND VOMITING Vitals/I&O/Wt Last Vital Signs Temp 98.0 F 04/23/24 17:24 Pulse 79 04/23/24 17:10 Resp 23 H 04/23/24 16:30 BP 116/67 05/25/24 16:30 Pulse Ox 96 04/23/24 17:10 O2 Del Method BiPAP 04/23/24 16:30 FiO2 21 04/23/24 17:10 04/23/24 04/23/24 04/23/24 06:59 14:59 22:59 Intake Total 1369.706 / 4638.870 1741.001 / 1741.001 180.314 / 1921.315 Output Total 1050 / 1950 10 / 10 Balance 319.706 / 2688.870 1741.001 / 1741.001 170.314 / 1911.315 Weight last 48 hrs Weight 190 lb 11.2 oz Weight 192 lb 14.4 oz Weight 182 lb Physical Exam 2 Narrative: GENERAL: The patient is alert and oriented times three. Not in any acute distress. HEENT: No significant pallor, icterus or lymphadenopathy.Oral cavity: There are no mucous membrane lesions. NECK: Trachea appears to be central. No masses noted. No JVD or thyromegaly appreciated. RESPIRATORY: Chest is symmetrical. No intercostals muscle retraction or any accessory muscle activation. There is no chest wall tenderness. Breath sounds are heard bilaterally. No rales or rhonchi heard. No evidence of any consolidation. BREASTS: Deferred. HEART: The heart sounds are normal. No S3 or S4. Short systolic murmur in the left sternal border. No diastolic murmurs. No pericardial rub ABDOMEN: No vessel pulsations or distention. No tenderness. No organomegaly appreciated. Bowel sounds are normally heard. : Deferred. RECTAL: Deferred. LYMPHATIC: No lymphadenopathy noted in the neck. EXTREMITIES: No edema or cyanosis. No clubbing. MUSCULOSKELETAL: No acute joint deformities or swelling SKIN: There are no significant rashes or ecchymosis NEUROPSYCHIATRIC: The patient is alert and oriented x3. Appears to be in a good mood. No tremors or rigidity noted. Urinary Catheter Management: Ramirez: Cath Placed During This Visit: yes Reason for Continuing Indwelling Catheter: Accurate Measurement of Urinary Output in Critically Ill Patients Urinary Catheter Date of Insertion: 04/22/24 Urinary Catheter Time of Insertion: 14:20 Data 04/23/24 03:15 04/23/24 13:49 Other Labs: Laboratory Last Values WBC 19.75 10^3/uL (3.29-11.43) H 04/23/24 03:15 RBC 4.22 10^6/uL (3.85-5.65) 04/23/24 03:15 Hgb 14.20 g/dL (11.27-16.99) 04/23/24 03:15 Hct 40.5 % (37-53) 04/23/24 03:15 MCV 96.0 fl (82-101) 04/23/24 03:15 MCH 33.6 pg (27-33) H 04/23/24 03:15 MCHC 35.1 g/dL (30-55) 04/23/24 03:15 RDW 12.5 % (12.1-15.1) 04/23/24 03:15 Plt Count 162 10^3/cmm (157-399) 04/23/24 03:15 MPV 10.1 fL (7.4-10.4) 04/23/24 03:15 Neut % (Auto) 93.3 % 04/23/24 03:15 Lymph % (Auto) 2.8 % 04/23/24 03:15 Greer % (Auto) 2.6 % 04/23/24 03:15 Eos % (Auto) 0.2 % 04/23/24 03:15 Baso % (Auto) 0.4 % 04/23/24 03:15 Neut # (Auto) 18.45 10^3/uL (1.8-7.7) H 04/23/24 03:15 Lymph # (Auto) 0.6 10^3/uL (0.8-4.8) L 04/23/24 03:15 Greer # (Auto) 0.5 10^3/uL (0.2-0.9) 04/23/24 03:15 Eos # (Auto) 0.0 10^3/uL (0.0-0.8) 04/23/24 03:15 Baso # (Auto) 0.1 10^3/uL (0.0-0.1) 04/23/24 03:15 Nucleated RBC % (auto) 0 % 04/23/24 03:15 Nucleated RBCs # 0.0 /100WBC 04/23/24 03:15 PT 19.40 SECONDS (12.1-14.9) H 04/22/24 09:57 INR 1.58 (0.8-1.2) H 04/22/24 09:57 Specimen Type Arterial 04/23/24 12:30 Sample Site Radial, right 04/23/24 12:30 ABG pH 7.41 (7.35-7.45) 04/23/24 12:30 ABG pCO2 23.2 mmHg (35-45) L 04/23/24 12:30 ABG pO2 93.7 mmHg (80.0-100.0) 04/23/24 12:30 ABG PO2/FiO2 Ratio 0 04/23/24 12:30 ABG HCO3 14.8 mmol/L (22-26) L 04/23/24 12:30 ABG O2 Saturation 98.4 04/23/24 12:30 ABG Base Excess -7.9 mmol/L (-2.0-2.0) L 04/23/24 12:30 [facility] Test Pos 04/23/24 12:30 A-a O2 Gradient 3.2 mmHg (5-10) L 04/23/24 12:30 Hematocrit 39.2 % (42-52) L 04/23/24 12:30 Hgb O2 Saturation 96.9 % (95-100) 04/23/24 12:30 Carboxyhemoglobin 1.1 %THgb (0.4-20.1) 04/23/24 12:30 Methemoglobin 0.4 % (0.4-1.5) 04/23/24 12:30 Total Hemoglobin 12.8 g/dL (14-18) L 04/23/24 12:30 Sodium 131.0 mmol/L (131-143) 04/23/24 12:30 Potassium 3.5 mmol/L (3.5-5.0) 04/23/24 12:30 Glucose 198.0 mg/dL (70-115) H 04/23/24 12:30 Ionized Calcium 1.0 mmol/L (1.1-1.4) L 04/23/24 12:30 O2 Delivery Device Bipap 04/23/24 12:30 FiO2 21.0 % 04/23/24 12:30 Tear Down Matcher ID Broma 04/23/24 12:30 Sodium 130 mmol/L (136-145) L 04/23/24 13:49 Potassium 3.7 mmol/L (3.5-5.1) 04/23/24 13:49 Chloride 97 mmol/L (98-107) L 04/23/24 13:49 Carbon Dioxide 17 mmol/L (22-29) L 04/23/24 13:49 Anion Gap 19.7 (5-19) H 04/23/24 13:49 BUN 35 mg/dL (6-20) H 04/23/24 13:49 Creatinine 4.1 mg/dL (0.7-1.2) H 04/23/24 13:49 GFR Calculation 15.0 mL/min (90-130) L 04/23/24 13:49 Glucose 215 mg/dL (65-115) H 04/23/24 13:49 Calculated Osmolality 284 mOsm/kg (285-295) L 04/23/24 13:49 Lactic Acid 1.6 mmol/L (0.5-2.2) 04/23/24 03:15 Lactic Acid (Sepsis) 1.7 mmol/L (0.5-2.2) 04/22/24 13:38 Calcium 7.0 mg/dL (8.5-10.5) L 04/23/24 13:49 Phosphorus 4.6 mg/dL (2.5-4.5) H 04/23/24 03:15 Magnesium 2.7 mg/dL (1.7-2.3) H 04/23/24 03:15 Total Bilirubin 0.3 mg/dL (0.15-1.2) 04/23/24 13:49 AST 577 U/L (0-40) H 04/23/24 13:49 ALT 267 U/L (0-41) H 04/23/24 13:49 Alkaline Phosphatase 53 U/L (40-130) 04/23/24 13:49 Troponin T Baseline 114 ng/L (0-15) H* 04/22/24 09:57 Troponin T 120 Minute 79.37 ng/L (0-15) H 04/22/24 12:21 Delta Troponin T -34.63 ABS# (0-10) L 04/22/24 12:21 Troponin T Hi Sens 6Hr 63.95 ng/L (0-15) H 04/22/24 15:40 Troponin T Hi Sens 6Hr Delta -50.05 ng/L (0-12) L 04/22/24 15:40 C-Reactive Protein 460.9 mg/L (0.0-4.9) H 04/23/24 03:15 C-Reactive Protein Cancelled 04/23/24 03:15 NT-Pro-B Natriuret Pep 3065 pg/mL (0-125) H 04/23/24 03:15 Total Protein 5.4 g/dL (6.6-8.7) L 04/23/24 13:49 Albumin 2.6 g/dL (3.5-5.2) L 04/23/24 13:49 Globulin 2.8 g/dL (1.3-4.6) 04/23/24 13:49 Procalcitonin > 100.00 ng/mL (0-0.5) H 04/23/24 03:15 Micro: Microbiology 04/23/24 15:30 Bacterial Antigens - Final Urine,Voided 04/22/24 13:38 Blood Culture - Preliminary Blood NEGATIVE TO DATE 04/22/24 13:38 Blood Culture - Preliminary Blood NEGATIVE TO DATE A&P Assessment and plan (1) Implantable cardioverter-defibrillator (ICD) discharge: We may consider changing the V-fib detection algorithm on the device later on. (2) Non-ischemic cardiomyopathy: Patient has significant improvement of the LV ejection fraction. Elevated troponin T most likely from the type II PR (3) HFrEF (heart failure with reduced ejection fraction): He will be carefully treated with IV diuretics. Currently the heart failure seems to be compensated. (4) Atrial fibrillation: Since there is no evidence of any active bleed or hematoma, the oral anticoagulation may be continued. Qualifiers: Atrial fibrillation type: persistent (not longstanding) Qualified Code(s): I48.19 - Other persistent atrial fibrillation (5) Type 2 diabetes mellitus: May continue on the current management. 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 Management as per the primary. Qualifiers: Laterality: left Lung location: upper lobe of lung Pneumonia type: due to unspecified organism Qualified Code(s): J18.9 - Pneumonia, unspecified organism Plan Other problems are Acute kidney injury-seems to be getting worse. Possibly from the hypotension Hyponatremia Ongoing smoking abuse COPD/sleep apnea Patient's hypotension most likely from the sepsis. Since the patient has significant improvement of the LV ejection fraction, he may not require any specific cardiac intervention at this point Attestations 2 Medical Necessity Statement*: Patient requires continued hospital stay for close monitoring and further management Coding Level of Care Code Acute Code for Chg Fwd Diagnoses Implantable cardioverter-defibrillator (ICD) discharge Z45.02 Non-ischemic cardiomyopathy I42.8 HFrEF (heart failure with reduced ejection fraction) I50.20 Persistent atrial fibrillation I48.19 Atrial fibrillation type: persistent (not longstanding) Type 2 diabetes mellitus without complication, without long-term current use of insulin E11.9 Diabetes mellitus termite exterminator helper insulin use: without long-term use Diabetes mellitus complication status: without complication Pneumonia of left upper lobe due to infectious organism J18.9 Laterality: left Lung location: upper lobe of lung Pneumonia type: due to unspecified organism
[2024-04-23 19:34] LABS: Amorphous Sediment Urine TRACE /hpf; Bacteria Urine 2+ /hpf; Bilirubin Urine Neg (Negative); Blood Urine 3+ (Negative); Coarse Granular Casts Urine 0-4 /lpf; Glucose Urine UA 2+ (Normal); Ketones Urine Negative (Negative); Leukocyte Esterase Urine Trace (Negative); Mucus Urine 1+ /hpf; Nitrate Urine Negative (Negative); Protein Urine 1+ (Negative); Specific Gravity, Urine 1.015 (1.005-1.030); Squamous Epithelial Cell Urine 0-4 /hpf (0-5); Urine Appearance Cloudy (CLEAR); Urine Color Yellow (Yellow); Urobilinogen Urine Neg (Negative); WBC Urine 15-25 /hpf (0-5); pH Urine 5 (5-7)
[2024-04-23 19:35] LABS: Add Urine Culture? Yes; Hyaline Casts Urine 0-4 /lpf
[2024-04-23 19:40] LABS: Potassium, Radom Urine 52 mmol/L; Urine Creatinine 70 mg/dL (39-259); Urine Random Chloride 50 mmol/L; Urine Random Sodium 53 mmol/L
[2024-04-23 19:41] LABS: Urine Protein Random 110 mg/dL
[2024-04-23] MEDS: metoprolol tartrate 25 mg Tablet PO (20:44)
[2024-04-23 20:48] LABS: Alanine Aminotransferase 246 U/L (0-41); Albumin Level 2.1 g/dL (3.5-5.2); Alkaline Phosphatase 43 U/L (40-130); Blood Urea Nitrogen 36 mg/dL (6-20); Carbon Dioxide 13 mmol/L (22-29); Chloride 98 mmol/L (98-107); Creatinine Clr Calc Pharmacy 20.6304; Globulin 2.6 g/dL (1.3-4.6); Glomerular Filtration Rate 14.6 mL/min (90-130); Glucose 257 mg/dL (65-115); Osmolality Calculated 291 mOsm/kg (285-295); Sodium 132 mmol/L (136-145); Total Bilirubin 0.2 mg/dL (0.15-1.2); Total Protein 4.7 g/dL (6.6-8.7)
[2024-04-23 20:50] LABS: Anion Gap 24.8 (5-19); Aspartate Amino Transferase 454 U/L (0-40); Potassium 3.8 mmol/L (3.5-5.1)
[2024-04-23 20:58] LABS: Thyroid Stimulating Hormone 1.93 uIU/mL (0.27-4.20)
[2024-04-23] MEDS: dexmedeTOMIDine 0.9 % NaCL 400 MCG/100 ML PREMIX 6.49000000000000021 MCG IV (21:03)
[2024-04-23 21:20] LABS: Creatine Phosphokinase 18635 U/L (39-308)
[2024-04-23 21:37] LABS: Parathyroid Hormone 324.8 pg/mL (15-65)
[2024-04-23 21:47] LABS: Uric Acid 11.7 mg/dL (3.4-7.0)
[2024-04-23] MEDS: calcium gluconate 0.1 gm/mL 10% SDV 10mL 1 GM IVP (22:08)
[2024-04-23 22:27] LABS: Hepatitis C Virus Antibody Non-Reactive (Nonreactive)
[2024-04-24] VITALS (65 sets, daily range): BP systolic 92–136; BP diastolic 54–86; PULSE 68–91; RESP 16–43; TEMP 35.7–38.6; O2SAT 90–100; BMI 29.3
[2024-04-24] MEDS: ipratropium-albuterol 3 mL Neb INHALATION ×6 (00:39→20:31)
--- NOTE | 2024-04-24 01:20 | PC.NURSE ---
3 vials of sodium bicarb pulled from the housecalls nurse alberto due to the ICU being out and the patient's increase in work of breathing.
[2024-04-24] MEDS: sodium bicarbonate 150 MEQ in dextrose 5% 1,000 ML 100 MEQ IV (01:25)
[2024-04-24] MEDS: cefepime 1,000 MG in sodium chloride 0.9% (plus) 50 ML 100 MG IV ×2 (01:37→13:29)
[2024-04-24] MEDS: methylPREDNISolone sod succ 40 mg/mL INJ IVP ×4 (01:38→19:34)
[2024-04-24] MEDS: LORazepam 2 mg/mL INJ 10 mL MDV IVP (03:17)
--- NOTE | 2024-04-24 04:00 | XRR_ITS ---
PROCEDURE INFORMATION: Exam: XR Chest Exam date and time: 04/24/2024 4:31 AM Age: 59 years old Clinical indication: Fever and shortness of breath; Prior surgery; Surgery date: 6+ months; Surgery type: Pacer; Patient HX: F/u for left mid lung consolidation. Patient SOB and hypoxic requiring bipap. Patient febrile upon exam. Picc line in place. ; Additional info: Respiratory failure TECHNIQUE: Imaging protocol: Radiologic exam of the chest. Views: 1 view. COMPARISON: CR (CHEST, ) 04/23/2024 1:29 PM FINDINGS: Tubes, catheters and devices: Left chest wall pacer device with intact and unchanged lead positioning. Peripherally inserted right central venous line with catheter tip terminating at the posterior cavoatrial junction. Lungs: Consolidative appearing left upper lobe infiltrate which has increased in size from prior comparison. Pleural spaces: Unremarkable. No pleural effusion. No pneumothorax. Heart/Mediastinum: Unremarkable. No cardiomegaly. Bones/joints: Unremarkable. XR/XR chest 1V portable [id number] IMPRESSION: Increasing in size consolidative left upper lobe infiltrate. Correlate with signs and symptoms for infection.
[2024-04-24 04:35] LABS: ABG PH Result 7.42 (7.35-7.45); Alveolar-Arterial Oxygen Gradi 5.7 mmHg (5-10); Arterial Blood Gas Hematocrit 40.1 % (42-52); Base Excess ABG -5.8 mmol/L (-2.0-2.0); Blood Gas Allen Test Pos; Blood Gas Operator Identificat JB; Blood Gas Sample Site Radial, right; Blood Gas Sample Type Arterial; Carboxyhemoglobin 1.1 %THgb (0.4-20.1); HGB O2 Sat 93.9 % (95-100); Methemoglobin 0.6 % (0.4-1.5); Oxygen Device BIPAP; Oxygen Saturation ABG 95.5; PO2 FiO2 Ratio Arterial Blood 0; Potassium Level - ABG 3.5 mmol/L (3.5-5.0); Total Hemoglobin 13.1 g/dL (14-18)
[2024-04-24] MEDS: acetaminophen 500 mg Tablet 1000 MG PO (04:36)
[2024-04-24 04:42] LABS: Basophils # 0.1 10^3/uL (0.0-0.1); Basophils % 0.3 %; Hematocrit 33.8 % (37-53); Lymphocytes # 0.4 10^3/uL (0.8-4.8); Lymphocytes % 2.6 %; Mean Corpuscular HGB Conc 34.9 g/dL (30-55); Mean Corpuscular Hemoglobin 33.7 pg (27-33); Mean Corpuscular Volume 96.6 fl (82-101); Mean Platelet Volume 11.1 fL (7.4-10.4); Monocytes # 0.4 10^3/uL (0.2-0.9); Monocytes % 2.7 %; Neutrophils # 15.31 10^3/uL (1.8-7.7); Nucleated Red Blood Cells % 0 %; Platelet Count 161 10^3/cmm (157-399); Red Cell Distribution Width 12.8 % (12.1-15.1); White Blood Count 16.46 10^3/uL (3.29-11.43)
[2024-04-24 05:03] LABS: Alanine Aminotransferase 326 U/L (0-41); Albumin Level 2.5 g/dL (3.5-5.2); Alkaline Phosphatase 51 U/L (40-130); Blood Urea Nitrogen 46 mg/dL (6-20); Calcium 7.1 mg/dL (8.5-10.5); Carbon Dioxide 16 mmol/L (22-29); Chloride 91 mmol/L (98-107); Creatinine Clr Calc Pharmacy 15.7541; Globulin 3.1 g/dL (1.3-4.6); Glomerular Filtration Rate 10.7 mL/min (90-130); Glucose 177 mg/dL (65-115); Magnesium 2.4 mg/dL (1.7-2.3); Osmolality Calculated 282 mOsm/kg (285-295); Phosphorus 6.9 mg/dL (2.5-4.5); Sodium 128 mmol/L (136-145); Total Bilirubin 0.3 mg/dL (0.15-1.2); Total Protein 5.6 g/dL (6.6-8.7)
[2024-04-24 05:04] LABS: Vancomycin Random 19.6 ug/mL (20.0-40.0)
[2024-04-24 05:05] LABS: Anion Gap 25.3 (5-19); Aspartate Amino Transferase 495 U/L (0-40); Potassium 4.3 mmol/L (3.5-5.1)
[2024-04-24 05:11] LABS: NT Pro B Type Natriuretic Pept 2345 pg/mL (0-125)
[2024-04-24 05:19] LABS: 25 Hydroxy Vitamin D 25 ng/mL (30-100)
[2024-04-24 05:27] LABS: C Reactive Protein 385.6 mg/L (0.0-4.9)
--- NOTE | 2024-04-24 06:44 | USR_ITS ---
PROCEDURE INFORMATION: Exam: US Retroperitoneal; Complete; Kidneys and Bladder Exam date and time: 04/24/2024 7:00 AM Age: 59 years old Clinical indication: Condition or disease; Other: Surya TECHNIQUE: Imaging protocol: Real-time ultrasound of the retroperitoneum with image documentation. Complete exam focused on the kidneys and bladder. COMPARISON: US renal BI* [id number] 04/22/2021 5:10 AM FINDINGS: Right kidney: The right kidney measures 12.2 cm. No hydronephrosis. Increased cortical echogenicity. Left kidney: The left kidney measures 11.8 cm. No hydronephrosis. Increased cortical echogenicity. Urinary bladder: The urinary bladder is decompressed with a Ramirez catheter. US/US renal BI* [id number] IMPRESSION: 1. No hydronephrosis. 2. Mildly increased bilateral cortical echogenicity, suggestive of medical renal disease.
--- NOTE | 2024-04-24 07:23 | P.PN_ITS ---
Subjective 2 Subjective: seen and examined w/ RN, telehealth visit off pressors lethargic on bipap, no pressors. weak Medications: Reviewed: Yes Medication Review Details: Current Medications Acetaminophen (Acetaminophen 500 Mg Tablet) 1,000 mg PO Q6H PRN PRN Reason: fever Last Admin: 04/24/24 04:36 Dose: 1,000 mg Albuterol/Ipratropium (Ipratropium-Albuterol 3 Ml Neb) 3 ml INHALATION Q4H.RESPIRATORY ANAY Last Admin: 04/24/24 03:23 Dose: 3 ml Amlodipine Besylate (Amlodipine 5 Mg Tablet) 5 mg PO DAILY ANAY Last Admin: 04/22/24 17:47 Dose: 5 mg Aspirin (Aspirin 81 Mg Ec Tablet) 81 mg PO DAILY ANAY Last Admin: 04/23/24 09:20 Dose: Not Given Calcium Carbonate (Calcium Carbonate 500 Mg Chew Tablet) 1,250 mg PO TID ANAY Clopidogrel Bisulfate (Clopidogrel 75 Mg Tablet) 75 mg PO DAILY ANAY Last Admin: 04/23/24 09:20 Dose: Not Given Enoxaparin Sodium (Enoxaparin 80 Mg/0.8 Ml Syringe) 80 mg SUBCUT Q24H ANAY Last Admin: 04/23/24 14:07 Dose: 80 mg Amiodarone HCl/Dextrose (Nexterone) 360 mg in 200 mls @ 0 mls/hr IV .Q0M ANAY; Protocol Last Admin: 04/24/24 03:17 Dose: 0.5 mg/min, 16.67 mls/hr Sodium Bicarbonate 150 meq/ (Dextrose) 1,150 mls @ 100 mls/hr IV .[id number] ANAY Last Admin: 04/24/24 01:25 Dose: 100 mls/hr Vancomycin HCl 1,000 mg/ (Sodium Chloride) 250 mls @ 250 mls/hr IV Q24H ANAY Doxycycline Hyclate 100 mg/ (Sodium Chloride) 100 mls @ 100 mls/hr IV Q12H ANAY; Protocol Last Infusion: 04/23/24 22:10 Dose: Infused Thiamine HCl 500 mg/ Sodium (Chloride) 105 mls @ 210 mls/hr IV DAILY ANAY Stop: 04/26/24 08:59 Last Infusion: 04/23/24 10:21 Dose: Infused Dexmedetomidine/Sodium Chloride (Precedex) 400 mcg in 100 mls @ 0 mls/hr IV .Q0M [facility]; Protocol Last Titration: 04/24/24 01:36 Dose: 0.3 mcg/kg/hr, 6.49 mls/hr norepinephrine (Levophed) 4 mg in 250 mls @ 0 mls/hr IV .Q0M ANAY; Protocol Last Titration: 04/23/24 20:44 Dose: 0 mcg/min, 0 mls/hr Cefepime HCl 1,000 mg/ Sodium (Chloride) 50 mls @ 100 mls/hr IV Q12H [facility]; Protocol Last Infusion: 04/24/24 03:24 Dose: Infused Lisinopril (Lisinopril 10 Mg Tablet) 10 mg PO DAILY [facility] Last Admin: 04/22/24 17:47 Dose: 10 mg Lorazepam (Lorazepam 2 Mg Tablet) 2 mg PO Q4H PRN; Protocol PRN Reason: WITHDRAWAL Lorazepam (Lorazepam 2 Mg/Ml Inj 10 Ml Mdv) 2 mg IM Q4H PRN; Protocol PRN Reason: ALCOHOL WITHDRAWAL Lorazepam (Lorazepam 2 Mg/Ml Inj 10 Ml Mdv) 2 mg IVP PRN PRN; Protocol PRN Reason: WITHDRAWAL Last Admin: 04/24/24 03:17 Dose: 2 mg Methylprednisolone Sodium Succinate (Methylprednisolone Sod Succ 40 Mg/Ml Inj) 40 mg IVP Q6H [facility] Last Admin: 04/24/24 01:38 Dose: 40 mg Metoprolol Tartrate (Metoprolol Tartrate 25 Mg Tablet) 25 mg PO BID@0900,2100 [facility] Last Admin: 04/23/24 20:44 Dose: 25 mg Ondansetron HCl (Ondansetron 2 Mg/Ml Sdv 2 Ml) 4 mg IVP Q6H PRN PRN Reason: NAUSEA AND VOMITING Vitals/I&O/Wt Last Vital Signs Temp 101.3 F H 04/24/24 04:00 Pulse 80 04/24/24 06:30 Resp 25 H 04/24/24 06:30 BP 109/61 04/24/24 06:30 Pulse Ox 93 04/24/24 06:30 O2 Del Method BiPAP 04/24/24 06:00 FiO2 28 04/24/24 06:00 04/23/24 04/24/24 04/24/24 22:59 06:59 14:59 Intake Total 863.911 / 2604.912 1417.863 / 4022.775 Output Total 100 / 127 Balance 836.911 / 2577.912 1317.863 / 3895.775 Weight last 48 hrs Weight 90.265 kg Weight 86.5 kg Weight 87.498 kg Weight 82.554 kg Physical Exam 2 Narrative: on bipap, obese man in bed vss, NSR lungs crackles- poor air movement on left side heart reg+HSM abd soft, nt, nd, + bs ext no edema neuro- responds to pain Urinary Catheter Management: Ramirez: Cath Placed During This Visit: yes Reason for Continuing Indwelling Catheter: Accurate Measurement of Urinary Output in Critically Ill Patients Urinary Catheter Date of Insertion: 04/22/24 Urinary Catheter Time of Insertion: 14:20 Data 04/24/24 04:17 04/24/24 04:17 Micro: Microbiology 04/23/24 15:30 Bacterial Antigens - Final Urine,Voided 04/22/24 13:38 Blood Culture - Preliminary Blood NEGATIVE TO DATE 04/22/24 13:38 Blood Culture - Preliminary Blood NEGATIVE TO DATE A&P Assessment and plan (1) LISSETTE (acute kidney injury): 59 yr old man 1. pna- renal dose abx. please check vanco level- keep trough under 19 2. NSTEMI 3. LISSETTE - urinalysis noted- w/ wbc, rbc, granular casts- concern for ATN elevated ur na of 53 -await renal us send amy, anca, hep profile -elevated cpk- monitor exam for muscle break down or compartment syndrome -given AMS, rising cr, elevated cpk, hypoxemia and oliguria- will initiate dialysis-please have a dilaysis catheter placed - lasix now -check repeat cpk -h/o+ amy- in 2020- will repeat 4. hyponatremia- elevated cortisol, normal tsh. elevated ur na 53 -likely from lissette and pna 5. inc AGMA from sepsis and lissette- monitor w/ hd 6. inc LFT's- likely shocked liver 7. elevated pth= will give a vit d analouge 8. consider decreasing lovenox w/ lissette please ensure all meds are dosed for GFR <10 seen and examined w/ RN- telehealth visit discussed w/ Dr Keyshawn Shah Plan see above Attestations 2 Medical Necessity Statement*: lissette, pna, resp distress, rhabdomyolysis Time Spent in Patient Care: Greater than 35 minutes Coding Level of Care Code Acute Code for Chg Fwd Diagnoses LISSETTE (acute kidney injury) N17.9
[2024-04-24] MEDS: vancomycin 1,000 MG in sodium chloride 0.9% 250 ML 250 MG IV (08:10)
[2024-04-24] MEDS: doxycycline 100 MG in sodium chloride 0.9% (plus) 100 ML IV ×2 (08:12→19:32)
[2024-04-24] MEDS: FUROsemide 10 mg/mL SDV 10mL 100 MG IVP (08:12)
--- NOTE | 2024-04-24 08:43 | PM.PN ---
Subjective Subjective: The patient is renal function is getting worse. Nephrology is consulted. The patient in the process of getting hemodialysis today. No chest pain. Has a baseline shortness of breath. Medications: Medication Review Details: Current Medications Acetaminophen (Acetaminophen 500 Mg Tablet) 1,000 mg PO Q6H PRN PRN Reason: fever Last Admin: 04/24/24 04:36 Dose: 1,000 mg Albuterol/Ipratropium (Ipratropium-Albuterol 3 Ml Neb) 3 ml INHALATION Q4H.RESPIRATORY ANAY Last Admin: 04/24/24 07:31 Dose: 3 ml Amlodipine Besylate (Amlodipine 5 Mg Tablet) 5 mg PO DAILY ANAY Last Admin: 04/22/24 17:47 Dose: 5 mg Aspirin (Aspirin 81 Mg Ec Tablet) 81 mg PO DAILY ANAY Last Admin: 04/24/24 08:28 Dose: Not Given Calcium Carbonate (Calcium Carbonate 500 Mg Chew Tablet) 1,250 mg PO TID ANAY Last Admin: 04/24/24 08:28 Dose: Not Given Clopidogrel Bisulfate (Clopidogrel 75 Mg Tablet) 75 mg PO DAILY ANAY Last Admin: 04/24/24 08:28 Dose: Not Given Enoxaparin Sodium (Enoxaparin 80 Mg/0.8 Ml Syringe) 80 mg SUBCUT Q24H ANAY Last Admin: 04/23/24 14:07 Dose: 80 mg Amiodarone HCl/Dextrose (Nexterone) 360 mg in 200 mls @ 0 mls/hr IV .Q0M [facility]; Protocol Last Admin: 04/24/24 03:17 Dose: 0.5 mg/min, 16.67 mls/hr Vancomycin HCl 1,000 mg/ (Sodium Chloride) 250 mls @ 250 mls/hr IV Q24H ANAY Last Admin: 04/24/24 08:10 Dose: 250 mls/hr Doxycycline Hyclate 100 mg/ (Sodium Chloride) 100 mls @ 100 mls/hr IV Q12H [facility]; Protocol Last Admin: 04/24/24 08:12 Dose: 100 mls/hr Thiamine HCl 500 mg/ Sodium (Chloride) 105 mls @ 210 mls/hr IV DAILY ANAY Stop: 04/26/24 08:59 Last Infusion: 04/23/24 10:21 Dose: Infused Dexmedetomidine/Sodium Chloride (Precedex) 400 mcg in 100 mls @ 0 mls/hr IV .Q0M [facility]; Protocol Last Titration: 04/24/24 08:09 Dose: 0.4 mcg/kg/hr, 8.65 mls/hr norepinephrine (Levophed) 4 mg in 250 mls @ 0 mls/hr IV .Q0M [facility]; Protocol Last Titration: 04/23/24 20:44 Dose: 0 mcg/min, 0 mls/hr Cefepime HCl 1,000 mg/ Sodium (Chloride) 50 mls @ 100 mls/hr IV Q12H [facility]; Protocol Last Infusion: 04/24/24 03:24 Dose: Infused Lorazepam (Lorazepam 2 Mg Tablet) 2 mg PO Q4H PRN; Protocol PRN Reason: WITHDRAWAL Lorazepam (Lorazepam 2 Mg/Ml Inj 10 Ml Mdv) 2 mg IM Q4H PRN; Protocol PRN Reason: ALCOHOL WITHDRAWAL Lorazepam (Lorazepam 2 Mg/Ml Inj 10 Ml Mdv) 2 mg IVP PRN PRN; Protocol PRN Reason: WITHDRAWAL Last Admin: 04/24/24 03:17 Dose: 2 mg Methylprednisolone Sodium Succinate (Methylprednisolone Sod Succ 40 Mg/Ml Inj) 40 mg IVP Q6H [facility] Last Admin: 04/24/24 08:13 Dose: 40 mg Metoprolol Tartrate (Metoprolol Tartrate 25 Mg Tablet) 25 mg PO BID@0900,2100 [facility] Last Admin: 04/24/24 08:28 Dose: Not Given Ondansetron HCl (Ondansetron 2 Mg/Ml Sdv 2 Ml) 4 mg IVP Q6H PRN PRN Reason: NAUSEA AND VOMITING Vitals/I&O/Wt Last Vital Signs Temp 101.3 F H 04/24/24 04:00 Pulse 72 04/24/24 07:40 Resp 34 H 04/24/24 07:25 BP 109/61 04/24/24 06:30 Pulse Ox 96 04/24/24 07:39 O2 Del Method BiPAP 04/24/24 07:25 FiO2 28 04/24/24 07:39 04/23/24 04/24/24 04/24/24 22:59 06:59 14:59 Intake Total 863.911 / 2604.912 1417.863 / 4022.775 42.51 / 42.51 Output Total 100 / 127 Balance 836.911 / 2577.912 1317.863 / 3895.775 42.51 / 42.51 Weight last 48 hrs Weight 199 lb Weight 190 lb 11.2 oz Weight 192 lb 14.4 oz Weight 182 lb Physical Exam Narrative: GENERAL: The patient is alert and oriented times three. Not in any acute distress. HEENT: No significant pallor, icterus or lymphadenopathy.Oral cavity: There are no mucous membrane lesions. NECK: Trachea appears to be central. No masses noted. No JVD or thyromegaly appreciated. RESPIRATORY: Chest is symmetrical. No intercostals muscle retraction or any accessory muscle activation. There is no chest wall tenderness. Breath sounds are heard bilaterally. No rales or rhonchi heard. No evidence of any consolidation. BREASTS: Deferred. HEART: The heart sounds are normal. No S3 or S4. No significant murmurs. No pericardial rub ABDOMEN: No vessel pulsations or distention. No tenderness. No organomegaly appreciated. Bowel sounds are normally heard. : Deferred. RECTAL: Deferred. LYMPHATIC: No lymphadenopathy noted in the neck. EXTREMITIES: No edema or cyanosis. No clubbing. MUSCULOSKELETAL: No acute joint deformities or swelling SKIN: There are no significant rashes or ecchymosis NEUROPSYCHIATRIC: The patient is alert and oriented x3. Appears to be in a good mood. No tremors or rigidity noted. Urinary Catheter Management: Ramirez: Cath Placed During This Visit: yes Reason for Continuing Indwelling Catheter: Accurate Measurement of Urinary Output in Critically Ill Patients Urinary Catheter Date of Insertion: 04/22/24 Urinary Catheter Time of Insertion: 14:20 Data 04/24/24 04:17 04/24/24 04:17 Other Labs: Laboratory Last Values WBC 16.46 10^3/uL (3.29-11.43) H 04/24/24 04:17 RBC 3.50 10^6/uL (3.85-5.65) L 04/24/24 04:17 Hgb 11.80 g/dL (11.27-16.99) 04/24/24 04:17 Hct 33.8 % (37-53) L 04/24/24 04:17 MCV 96.6 fl (82-101) 04/24/24 04:17 MCH 33.7 pg (27-33) H 04/24/24 04:17 MCHC 34.9 g/dL (30-55) 04/24/24 04:17 RDW 12.8 % (12.1-15.1) 04/24/24 04:17 Plt Count 161 10^3/cmm (157-399) 04/24/24 04:17 MPV 11.1 fL (7.4-10.4) H 04/24/24 04:17 Neut % (Auto) 93.0 % 04/24/24 04:17 Lymph % (Auto) 2.6 % 04/24/24 04:17 [place] % (Auto) 2.7 % 04/24/24 04:17 Eos % (Auto) 0.0 % 04/24/24 04:17 Baso % (Auto) 0.3 % 04/24/24 04:17 Neut # (Auto) 15.31 10^3/uL (1.8-7.7) H 04/24/24 04:17 Lymph # (Auto) 0.4 10^3/uL (0.8-4.8) L 04/24/24 04:17 [place] # (Auto) 0.4 10^3/uL (0.2-0.9) 04/24/24 04:17 Eos # (Auto) 0.0 10^3/uL (0.0-0.8) 04/24/24 04:17 Baso # (Auto) 0.1 10^3/uL (0.0-0.1) 04/24/24 04:17 Nucleated RBC % (auto) 0 % 04/24/24 04:17 Nucleated RBCs # 0.0 /100WBC 04/24/24 04:17 PT 19.40 SECONDS (12.1-14.9) H 04/22/24 09:57 INR 1.58 (0.8-1.2) H 04/22/24 09:57 Specimen Type Arterial 04/24/24 04:22 Sample Site Radial, right 04/24/24 04:22 ABG pH 7.42 (7.35-7.45) 04/24/24 04:22 ABG pCO2 26.0 mmHg (35-45) L 04/24/24 04:22 ABG pO2 70.0 mmHg (80.0-100.0) L 04/24/24 04:22 ABG PO2/FiO2 Ratio 0 04/24/24 04:22 ABG HCO3 17.0 mmol/L (22-26) L 04/24/24 04:22 ABG O2 Saturation 95.5 04/24/24 04:22 ABG Base Excess -5.8 mmol/L (-2.0-2.0) L 04/24/24 04:22 [facility] Test Pos 04/24/24 04:22 A-a O2 Gradient 5.7 mmHg (5-10) 04/24/24 04:22 Hematocrit 40.1 % (42-52) L 04/24/24 04:22 Hgb O2 Saturation 93.9 % (95-100) L 04/24/24 04:22 Carboxyhemoglobin 1.1 %THgb (0.4-20.1) 04/24/24 04:22 Methemoglobin 0.6 % (0.4-1.5) 04/24/24 04:22 Total Hemoglobin 13.1 g/dL (14-18) L 04/24/24 04:22 Sodium 130.0 mmol/L (131-143) L 04/24/24 04:22 Potassium 3.5 mmol/L (3.5-5.0) 04/24/24 04:22 Glucose 174.0 mg/dL (70-115) H 04/24/24 04:22 Ionized Calcium 1.0 mmol/L (1.1-1.4) L 04/24/24 04:22 O2 Delivery Device Bipap 04/24/24 04:22 FiO2 21.0 % 04/24/24 04:22 Specialty Molder ID Quinn 04/24/24 04:22 Sodium 128 mmol/L (136-145) L 04/24/24 04:17 Potassium 4.3 mmol/L (3.5-5.1) 04/24/24 04:17 Chloride 91 mmol/L (98-107) L 04/24/24 04:17 Carbon Dioxide 16 mmol/L (22-29) L 04/24/24 04:17 Anion Gap 25.3 (5-19) H 04/24/24 04:17 BUN 46 mg/dL (6-20) H 04/24/24 04:17 Creatinine 5.5 mg/dL (0.7-1.2) H 04/24/24 04:17 GFR Calculation 10.7 mL/min (90-130) L 04/24/24 04:17 Glucose 177 mg/dL (65-115) H 04/24/24 04:17 Calculated Osmolality 282 mOsm/kg (285-295) L 04/24/24 04:17 Lactic Acid 1.6 mmol/L (0.5-2.2) 04/23/24 03:15 Lactic Acid (Sepsis) 1.7 mmol/L (0.5-2.2) 04/22/24 13:38 Uric Acid 11.7 mg/dL (3.4-7.0) H 04/23/24 20:21 Calcium 7.1 mg/dL (8.5-10.5) L 04/24/24 04:17 Phosphorus 6.9 mg/dL (2.5-4.5) H 04/24/24 04:17 Magnesium 2.4 mg/dL (1.7-2.3) H 04/24/24 04:17 Total Bilirubin 0.3 mg/dL (0.15-1.2) 04/24/24 04:17 AST 495 U/L (0-40) H 04/24/24 04:17 ALT 326 U/L (0-41) H 04/24/24 04:17 Alkaline Phosphatase 51 U/L (40-130) 04/24/24 04:17 Creatine Kinase 83944 U/L (39-308) H* 04/23/24 20:21 Troponin T Baseline 114 ng/L (0-15) H* 04/22/24 09:57 Troponin T 120 Minute 79.37 ng/L (0-15) H 04/22/24 12:21 Delta Troponin T -34.63 ABS# (0-10) L 04/22/24 12:21 Troponin T Hi Sens 6Hr 63.95 ng/L (0-15) H 04/22/24 15:40 Troponin T Hi Sens 6Hr Delta -50.05 ng/L (0-12) L 04/22/24 15:40 C-Reactive Protein 385.6 mg/L (0.0-4.9) H 04/24/24 04:17 NT-Pro-B Natriuret Pep 2345 pg/mL (0-125) H 04/24/24 04:17 Total Protein 5.6 g/dL (6.6-8.7) L 04/24/24 04:17 Albumin 2.5 g/dL (3.5-5.2) L 04/24/24 04:17 Globulin 3.1 g/dL (1.3-4.6) 04/24/24 04:17 25-OH Vitamin D Total 25 ng/mL (30-100) L 04/24/24 04:17 Procalcitonin > 100.00 ng/mL (0-0.5) H 04/23/24 03:15 TSH 1.93 uIU/mL (0.27-4.20) 04/23/24 20:21 PTH Intact 324.8 pg/mL (15-65) H 04/23/24 20:21 Calcium (PTH Intact) 5.0 mg/dL (8.5-10.5) L* 04/23/24 20:21 Random Cortisol 25.40 ug/dL (2.47-19.5) H 04/24/24 04:17 Urine Color Yellow (Yellow) 04/23/24 18:32 Urine Appearance Cloudy (CLEAR) A 04/23/24 18:32 Urine pH 5 (5-7) 04/23/24 18:32 Ur Specific [place] 1.015 (1.005-1.030) 04/23/24 18:32 Urine Protein 1+ (Negative) H 04/23/24 18:32 Urine Glucose (UA) 2+ (Normal) H 04/23/24 18:32 Urine Ketones Negative (Negative) 04/23/24 18:32 Urine Blood 3+ (Negative) H 04/23/24 18:32 Urine Nitrate Negative (Negative) 04/23/24 18:32 Urine Bilirubin Neg (Negative) 04/23/24 18:32 Urine Urobilinogen Neg mg/dL (Negative) 04/23/24 18:32 Ur Leukocyte Esterase Trace (Negative) H 04/23/24 18:32 Urine RBC 5-10 /hpf (0-2) H 04/23/24 18:32 Urine WBC 15-25 /hpf (0-5) H 04/23/24 18:32 Ur Squamous Epith Cells 0-4 /hpf (0-5) H 04/23/24 18:32 Amorphous Sediment Trace /hpf 04/23/24 18:32 Urine Bacteria 2+ /hpf (NONE) H 04/23/24 18:32 Hyaline Casts 0-4 /lpf H 04/23/24 18:32 Coarse Granular Casts 0-4 /lpf H 04/23/24 18:32 Urine Mucus 1+ /hpf 04/23/24 18:32 U Random Total Protein 110 mg/dL 04/23/24 18:32 Ur Random Sodium 53 mmol/L 04/23/24 18:32 Ur Random Potassium 52 mmol/L 04/23/24 18:32 Ur Random Chloride 50 mmol/L 04/23/24 18:32 Urine Creatinine 70 mg/dL (39-259) 04/23/24 18:32 Random Vancomycin 19.6 ug/mL (20.0-40.0) L 04/24/24 04:17 Hepatitis C Antibody Non-reactive (Nonreactive) 04/23/24 20:21 Micro: Microbiology 04/23/24 15:30 Bacterial Antigens - Final Urine,Voided 04/22/24 13:38 Blood Culture - Preliminary Blood NEGATIVE TO DATE 04/22/24 13:38 Blood Culture - Preliminary Blood NEGATIVE TO DATE A&P Assessment and plan (1) Implantable cardioverter-defibrillator (ICD) discharge: Patient has not had any recurrence or ICD discharges, since the hospital admission. We may consider changing the V-fib detection algorithm on the device later on. Patient is on long-term oral anticoagulation. This may be continued to be (2) Non-ischemic cardiomyopathy: Patient has significant improvement of the LV ejection fraction. Elevated troponin T most likely from the type II SC (3) Heart failure with improved ejection fraction (HFimpEF): Patient's heart failure seems to be compensated, from a clinical standpoint. (4) Atrial fibrillation: Since there is no evidence of any active bleed or hematoma, the oral anticoagulation may be continued. Qualifiers: Atrial fibrillation type: persistent (not longstanding) Qualified Code(s): I48.19 - Other persistent atrial fibrillation (5) Type 2 diabetes mellitus: May continue on the current management. Qualifiers: Diabetes mellitus complication status: without complication Diabetes mellitus intermission coordinator insulin use: without intermission coordinator use Qualified Code(s): E11.9 - Type 2 diabetes mellitus without complications (6) Pneumonia: Patient had a repeat chest x-ray which revealed increase in the consolidation area of the right upper lobe. Aggressive treatment with multiple antibiotics might be appropriate. Qualifiers: Laterality: left Lung location: upper lobe of lung Pneumonia type: due to unspecified organism Qualified Code(s): J18.9 - Pneumonia, unspecified organism (7) Acute renal failure: Patient seems to have worsening kidney function. He is in the process of getting hemodialysis Qualifiers: Acute renal failure type: unspecified Qualified Code(s): N17.9 - Acute kidney failure, unspecified Plan Other problems are Hyponatremia-improving Ongoing smoking abuse COPD/sleep apnea Aggressive management of the pneumonia would be appropriate. Possible hemodialysis today May continue on the amiodarone to maintain sinus rhythm Attestations Medical Necessity Statement*: Patient requires continued hospital stay for close monitoring and further management Coding Level of Care Code 57023 Diagnoses Implantable cardioverter-defibrillator (ICD) discharge Z45.02 Non-ischemic cardiomyopathy I42.8 Heart failure with improved ejection fraction (HFimpEF) I50.32 Persistent atrial fibrillation I48.19 Atrial fibrillation type: persistent (not longstanding) Type 2 diabetes mellitus without complication, without long-term current use of insulin E11.9 Diabetes mellitus complication status: without complication Diabetes mellitus intermission coordinator insulin use: without intermission coordinator use Pneumonia of left upper lobe due to infectious organism J18.9 Laterality: left Lung location: upper lobe of lung Pneumonia type: due to unspecified organism Acute renal failure, unspecified acute renal failure type N17.9 Acute renal failure type: unspecified
--- NOTE | 2024-04-24 08:47 | PM.CONSULT ---
Providers/Reason For Consult Consulting Physician/Specialty*: General surgery Reason for Consult*: Acute kidney injury requiring dialysis Attending Physician: Ruy Shah MD Primary Care Provider: Barbi Mendenhall MD History of Present Illness History of Present Illness Zach Austin is a 59 year old male who presented 2 days ago to the hospital with clinical picture concerning for sepsis and acute kidney injury. Patient has multiple medical conditions including cardiac disease, liver disease and kidney injury. I was consulted as nephrology has decided to proceed with dialysis. Review of Systems General: Reports: ROS unobtainable due to endotracheal tube Medications/Allergies Home Medications Medication Instructions Recorded Confirmed Last Taken Type multivitamin (Multiple Vitamins 1 tab PO DAILY 09/19/20 04/22/24 1 Day Ago History tablet) ~04/21/24 apixaban 5 mg tablet (Eliquis) 5 mg PO BID #60 tabs 10/06/20 04/22/24 1 Day Ago Rx ~04/21/24 glucometer testing kit #1 ea 04/28/21 04/23/24 Unknown Rx furosemide 40 mg tablet 40 mg PO DAILY 05/02/21 04/22/24 1 Week Ago History ~04/15/24 lisinopril 10 mg tablet 5 mg PO DAILY 09/10/22 04/22/24 3 Days Ago History ~04/19/24 metoprolol tartrate 50 mg tablet 25 mg PO DAILY 09/10/22 04/22/24 09/10/22 History potassium chloride 20 mEq 40 meq PO DAILY 09/10/22 04/22/24 1 Day Ago History tablet,extended release ~04/21/24 Allergies Allergy/AdvReac Type Severity Reaction Status Date / Time No Known Allergies Allergy Verified 12/29/23 08:55 Current Medications Generic Name Dose Route Start Last Admin Trade Name Freq PRN Reason Stop Dose Admin Acetaminophen 1,000 mg 04/23/24 07:51 04/24/24 04:36 Acetaminophen 500 Mg Tablet PO 1,000 mg Q6H PRN Administration fever Albuterol/Ipratropium 3 ml 04/23/24 12:00 04/24/24 07:31 Ipratropium-Albuterol 3 Ml Neb INHALATION 3 ml Q4H.RESPIRATORY ANAY Administration Amlodipine Besylate 5 mg 04/22/24 17:05 04/22/24 17:47 Amlodipine 5 Mg Tablet PO 5 mg DAILY ANAY Administration Aspirin 81 mg 04/23/24 09:00 04/24/24 08:28 Aspirin 81 Mg Ec Tablet PO Not Given DAILY ANAY Calcium Carbonate 1,250 mg 04/24/24 09:00 04/24/24 08:28 Calcium Carbonate 500 Mg Chew Tablet PO Not Given TID ANAY Clopidogrel Bisulfate 75 mg 04/23/24 09:00 04/24/24 08:28 Clopidogrel 75 Mg Tablet PO Not Given DAILY ANAY Enoxaparin Sodium 80 mg 04/22/24 13:30 04/23/24 14:07 Enoxaparin 80 Mg/0.8 Ml Syringe SUBCUT 80 mg Q24H ANAY Administration Amiodarone HCl/Dextrose 360 mg in 200 mls @ 0 mls/hr 04/22/24 10:21 04/24/24 03:17 Nexterone IV 0.5 mg/min .Q0M ANAY 16.67 mls/hr Administration Protocol Per Protocol Vancomycin HCl 1,000 mg/ 250 mls @ 250 mls/hr 04/24/24 07:00 04/24/24 08:10 Sodium Chloride IV 250 mls/hr Q24H ANAY Administration Doxycycline Hyclate 100 mg/ 100 mls @ 100 mls/hr 04/23/24 08:00 04/24/24 08:12 Sodium Chloride IV 100 mls/hr Q12H ANAY Administration Protocol Thiamine HCl 500 mg/ Sodium 105 mls @ 210 mls/hr 04/23/24 09:00 04/23/24 10:21 Chloride IV 04/26/24 08:59 Infused DAILY ANAY Infusion Dexmedetomidine/Sodium Chloride 400 mcg in 100 mls @ 0 mls/hr 04/23/24 09:00 04/24/24 08:09 Precedex IV 0.4 mcg/kg/hr .Q0M ANAY 8.65 mls/hr Titration Protocol Per Protocol norepinephrine 4 mg in 250 mls @ 0 mls/hr 04/23/24 12:15 04/23/24 20:44 Levophed IV 0 mcg/min .Q0M ANAY 0 mls/hr Titration Protocol Per Protocol Cefepime HCl 1,000 mg/ Sodium 50 mls @ 100 mls/hr 04/23/24 13:45 04/24/24 03:24 Chloride IV Infused Q12H ANAY Infusion Protocol Lorazepam 2 mg 04/22/24 17:30 04/24/24 03:17 Lorazepam 2 Mg/Ml Inj 10 Ml Mdv IVP 2 mg PRN PRN Administration WITHDRAWAL Protocol Methylprednisolone Sodium Succinate 40 mg 04/23/24 14:00 04/24/24 08:13 Methylprednisolone Sod Succ 40 Mg/Ml Inj IVP 40 mg Q6H ANAY Administration Metoprolol Tartrate 25 mg 04/23/24 09:00 04/24/24 08:28 Metoprolol Tartrate 25 Mg Tablet PO Not Given BID@0900,2100 [facility] PFSH Acute PFSH: Medical History (Updated 04/23/24 @ 16:34 by Tyson Rosas MD) Sepsis Encounter for smoking cessation counseling ISAC (obstructive sleep apnea) Person under investigation for COVID-19 ICD (implantable cardioverter-defibrillator) in place Coronary artery disease Obstructive sleep apnea -severe per sleep study on 03/2019 NSVT (nonsustained ventricular tachycardia) HFrEF (heart failure with reduced ejection fraction) Hypertension Atrial fibrillation Community acquired pneumonia Chest pain CHF (congestive heart failure) Surgical History Status post bilateral knee replacements Family History Grandmother Hypertension Social History Smoking and tobacco/nicotine status: current some day tobacco/nicotine user cigarettes Packs smoked per day: 0.5 Years cigarettes smoked: 39 Alcohol intake: former Year of sobriety/quit date alcohol: 1 month ago Former alcohol use details: Half a pint of vodka, beer use daily Substance/Drug Use: never Vitals/I&O/Wt Last Vital Signs Temp 101.3 F H 04/24/24 04:00 Pulse 72 04/24/24 07:40 Resp 34 H 04/24/24 07:25 BP 109/61 04/24/24 06:30 Pulse Ox 96 04/24/24 07:39 O2 Del Method BiPAP 04/24/24 07:25 FiO2 28 04/24/24 07:39 04/23/24 04/24/24 04/24/24 22:59 06:59 14:59 Intake Total 863.911 / 6924.912 1417.863 / 4022.775 42.51 / 42.51 Output Total 100 / 127 Balance 836.911 / 2577.912 1317.863 / 3895.775 42.51 / 42.51 Weight last 48 hrs Weight 199 lb Weight 190 lb 11.2 oz Weight 192 lb 14.4 oz Weight 182 lb Physical Exam Narrative: Patient is somnolent, responds to stimuli but cannot carry a conversation. He does have a BiPAP on at this time. ? Abdominal exam is benign ? Bilateral groin exam done, pulses are palpable. Urinary Catheter Management: Ramirez: Cath Placed During This Visit: yes Reason for Continuing Indwelling Catheter: Accurate Measurement of Urinary Output in Critically Ill Patients Urinary Catheter Date of Insertion: 04/22/24 Urinary Catheter Time of Insertion: 14:20 Data 04/24/24 04:17 04/24/24 04:17 Micro: Microbiology 04/23/24 15:30 Bacterial Antigens - Final Urine,Voided 04/22/24 13:38 Blood Culture - Preliminary Blood NEGATIVE TO DATE 04/22/24 13:38 Blood Culture - Preliminary Blood NEGATIVE TO DATE A&P Assessment and plan (1) Alcohol use: (2) HFrEF (heart failure with reduced ejection fraction): (3) NSTEMI (non-ST elevated myocardial infarction): (4) Acute renal failure: (5) Septic shock: Plan After complete history, physical examination and review of all available clinical data the following is my assessment. Patient will benefit from dialysis catheter placement. Since patient is in a poor clinical condition I have discussed the procedure with his son Mr. Haris Austin and after discussion of all risk and benefits including the risks of bleeding, infection, injury to surrounding structures, pneumothorax, need for tube thoracostomy, injury to the arterial structures of the groin or the neck the family member has agreed to proceed with dialysis catheter placement. We will do this this morning, after catheter placement patient can be immediately started on dialysis. Coding Level of Care Code 04338 Diagnoses Alcohol use Z78.9 HFrEF (heart failure with reduced ejection fraction) I50.20 NSTEMI (non-ST elevated myocardial infarction) I21.4 Acute renal failure N17.9 Septic shock A41.9; R65.21
[2024-04-24] MEDS: thiamine 500 MG in sodium chloride 0.9% (100 ml) 100 ML 210 MG IV (08:54)
[2024-04-24 08:58] LABS: Hepatitis B Surface AB 21.9 (11.5-1000); Hepatitis B Surface Antigen Non-Reactive (Nonreactive); Hepatitis C Virus Antibody Non-Reactive (Nonreactive)
--- NOTE | 2024-04-24 09:30 | PC.NURSE ---
Dr. Shah was able to contact patients legal , phone number for Patients son Haris obtained, and son contacted for legal decision maker. Verbal consent obtained from Haris; son, for temporary hemodialysis catheter placement. Dr. Shah updated family and Dr. Alvarez to place dialysis line.
[2024-04-24] MEDS: dexmedeTOMIDine 0.9 % NaCL 400 MCG/100 ML PREMIX 8.65000000000000036 MCG IV (09:43)
--- NOTE | 2024-04-24 09:52 | PM.ACPR ---
Procedure/Consent Time out: Time Out Performed: Yes Consent: Additional Consent Information: Consent obtained from SOn due to patient mental status Procedure Narrative: Patient was placed in supine position. time out was conducted. the right groin was prepped and draped in the usual sterile fashion. the right femoral vein was identified with ultrasound and canulated with an 18 G needle. a wire was advanced and needle removed. the position of the wire was verified with US. the tract was dilatated over the wire and then a 2 lumen 20cm dialysis catheter was advanced over the wire. once the catheter was in place the wire was removed. the catheter was aspirating and flushing without difficulty. the line was fixed to the skin with suture and a sterile dressing appied. at the end of the procedure patient remained in ICU in critical but stable condition. Acute Procedures Epistaxis Control: Time out performed: Yes
[2024-04-24] MEDS: heparin, porcine 1,000 unit/mL INJ 10 mL 1000 UNIT IV (10:08)
--- NOTE | 2024-04-24 10:26 | P.PN_ITS ---
Subjective 2 Subjective: Patient remains in critical condition. Remains encephalopathic. On BiPAP. There is questionable airway protection with his current mentation; with the current trajectory will likely end up intubated if he does not start responding to treatment. He remains in an uric renal failure with worsening renal parameters. Discussed with nephrology recommending initiation of dialysis. General surgery consulted. Still been no family contact. He is not able to consent. May have to proceed with emergent procedures, however preference would be to have next of kin involved. Fortunately there is no contact information listed for her son Rivera on the chart. Per H&P patient noted he been going through a divorce. His phone is locked and he is too encephalopathic to provide the unlock code. Eventually was able to contact his spouse here [place]. She confirmed they were getting . She did not know he was in the hospital. She proceeded and route. I met with her bedside. She discussed current decision maker is Sharlene who is currently in [facility]. I called and discussed patient with Sharlene. He consented for dialysis line placement, dialysis, and intubation if necessary. He plans on being bedside later today. Medications: Reviewed: Yes Vitals/I&O/Wt Last Vital Signs Temp 96.4 F L 04/24/24 10:21 Pulse 74 04/24/24 10:21 Resp 26 H 04/24/24 10:21 BP 109/71 04/24/24 10:21 Pulse Ox 100 04/24/24 09:19 O2 Del Method BiPAP 04/24/24 09:00 FiO2 100 04/24/24 09:19 04/23/24 04/24/24 04/24/24 22:59 06:59 14:59 Intake Total 863.911 / 2604.912 1417.863 / 4022.775 511.062 / 511.062 Output Total 100 / 127 Balance 836.911 / 2577.912 1317.863 / 3895.775 511.062 / 511.062 Weight last 48 hrs Weight 90.265 kg Weight 86.5 kg Weight 87.498 kg Physical Exam 2 Narrative: General: Patient remains encephalopathic. On BiPAP. Increased work of breathing. Using accessory muscles. Head: Normocephalic. Abrasions on head unchanged from prior exam. Neck: No JVD. Cardiovascular: RRR. No gallops. No murmurs. Trace pedal edema. Lungs: Bilateral rhonchi with faint wheeze. Using accessory muscles. Tachypneic. In respiratory distress. Skin: No jaundice. No rashes. Abdomen: Hypoactive bowel sounds, abdomen soft. Extremities: No cyanosis or clubbing. Musculoskeletal: No erythematous joints. Neurological: Moves all 4 extremities. No myoclonus. Encephalopathic. Urinary Catheter Management: Ramirez: Cath Placed During This Visit: yes Reason for Continuing Indwelling Catheter: Accurate Measurement of Urinary Output in Critically Ill Patients Urinary Catheter Date of Insertion: 04/22/24 Urinary Catheter Time of Insertion: 14:20 Data 04/24/24 04:17 04/24/24 04:17 Micro: Microbiology 04/23/24 15:30 Bacterial Antigens - Final Urine,Voided 04/22/24 13:38 Blood Culture - Preliminary Blood NEGATIVE TO DATE 04/22/24 13:38 Blood Culture - Preliminary Blood NEGATIVE TO DATE A&P Assessment and plan (1) Septic shock: Source: Community-acquired pneumonia Levophed for MAP goal of 65 mmHg Holding home antihypertensives Continue broad-spectrum antibiotics Follow blood cultures Continuous telemetry monitoring (2) Pneumonia: Antibiotics as above Optimize respiratory function Qualifiers: Laterality: left Lung location: upper lobe of lung Pneumonia type: due to unspecified organism Qualified Code(s): J18.9 - Pneumonia, unspecified organism (3) Acute renal failure: Anuric renal failure Renal function is worsening Strict I's and O's with Ramirez Daily weights Nephrology following General surgery consult for dialysis placement (4) Acute metabolic encephalopathy: He remains encephalopathic, continue to monitor mentation Seems to still be protecting airway for now, high risk for intubation Hold oral medications as needed due to his mentation (5) Head injury: Serial neurologic exams Treat underlying metabolic disorder and sepsis May need additional head imaging pending clinical course (6) Non-ischemic cardiomyopathy: Reports of ICD firing Ejection fraction reportedly improved, although unable to see the echo report Cardiology is following Continue amiodarone drip (7) HFrEF (heart failure with reduced ejection fraction): Unable to find recent echo on chart Strict I's and O's Daily weights (8) Atrial fibrillation: Chronic atrial fibrillation Continue amiodarone drip Discontinue Lovenox due to worsening renal function Will start heparin Qualifiers: Atrial fibrillation type: persistent (not longstanding) Qualified Code(s): I48.19 - Other persistent atrial fibrillation (9) NSTEMI (non-ST elevated myocardial infarction): Suspect presentation is more demand ischemia Cardiology is consulted, appreciate recommendations (10) Implantable cardioverter-defibrillator (ICD) discharge: ICD discharge x 2 as noted above Cardiology input noted (11) Alcohol use: Patient unable to provide recent alcohol usage history Suspect component of possible alcohol withdrawal Continue thiamine at [place] dosing given encephalopathy CIWA protocol Continue Precedex (12) Tobacco use: Suspect there could be a component of COPD Continue systemic steroids Continue with breathing treatments Plan DVT prophylaxis: Lovenox CODE STATUS: Full code Attestations 2 Medical Necessity Statement*: Patient remains in multiorgan system failure requiring ongoing hospitalization for ICU care. Critical Care Time: The high probability of a clinically significant, sudden or life threatening deterioration of the patient's cardiovascular, neurological, respiratory, renal system(s) required my full and direct attention, intervention and personal management. The critical care time is as shown. This time is in addition to time spent performing any reported procedures but includes the following: [x] Data and vital sign review and interpretation [x] Patient assessment, examination and intervention [x] Documentation [x] Medication orders and management Critical Care Time (min): 80 Coding Level of Care Code Acute Code for [facility] Fwd Diagnoses Septic shock A41.9; R65.21 Pneumonia of left upper lobe due to infectious organism J18.9 Laterality: left Lung location: upper lobe of lung Pneumonia type: due to unspecified organism Acute renal failure N17.9 Acute metabolic encephalopathy G93.41 Head injury S09.90XA Non-ischemic cardiomyopathy I42.8 HFrEF (heart failure with reduced ejection fraction) I50.20 Persistent atrial fibrillation I48.19 Atrial fibrillation type: persistent (not longstanding) NSTEMI (non-ST elevated myocardial infarction) I21.4 Implantable cardioverter-defibrillator (ICD) discharge Z45.02 Alcohol use Z78.9 Tobacco use Z72.0
[2024-04-24] MEDS: paricalcitol 2 mcg/mL SDV 1 mL IV (10:34)
--- NOTE | 2024-04-24 10:48 | PC.NURSE ---
Patients legal at bedside with oldest son, patient became agitated and removed bipap, unable to comprehend patients attempted verbal response. Dr. Cotto at bedside and patient was able to speak clearly with him, however patient can not answer orientation questions. Legal stated she has a restraining order and oldest son also has restraining order against patient for violent activity. House super contacted for legal clarification, Security notified nursing staff that legally, oldest son and legal are able to be at bedside. Will follow patients wishes if and when mentation improves on who patient wants at bedside. Youngest son Haris is at bedside and is decision maker.
--- NOTE | 2024-04-24 11:10 | PC.NURSE ---
Patients son Haris in possession of all patients belongings including patients wallet and all contents, patients clothing and shoes,cigarets; phone and tablet that were in a black shoulder bag.
--- NOTE | 2024-04-24 11:11 | PC.RESP ---
unable to obtain sputum at this time
[2024-04-24] MEDS: enoxaparin 80 mg/0.8 mL Syringe SUBCUT (13:29)
--- NOTE | 2024-04-24 18:14 | PC.NURSE ---
Patient is more alert and talking after dialysis. Patient is expressing anger towards legal who promptly left. Patient is angry with decision making son, jamaal for taking home belongings, much profanity from patient. Son has been contacted to bring these things back. Verbal deescalation, patient calmed enough to answer orientation questions appropriately.
[2024-04-24] MEDS: calcium carbonate 500 mg Chew Tablet 1250 MG PO (20:32)
[2024-04-24] MEDS: metoprolol tartrate 25 mg Tablet PO (20:33)
[2024-04-24] MEDS: lanolin oint 7 gm 1 APPLIC TOPICAL (20:37)
[2024-04-24] MEDS: dexmedeTOMIDine 0.9 % NaCL 400 MCG/100 ML PREMIX 10.8100000000000005 MCG IV (21:12)
--- NOTE | 2024-04-24 23:26 | PC.NURSE ---
Verbal Threats: Pt states, I'm gonna have to do something reckless and Fuck you when discussing his diet order of NPO w/ sips, chips, and meds. See Aggression Rating Tool . Education provided, pt is resistant to learning.
--- NOTE | 2024-04-24 23:33 | PC.NURSE ---
Hemodilaysis catheter is in the R. Groin.
[2024-04-25] VITALS (38 sets, daily range): BP systolic 128–165; BP diastolic 73–100; PULSE 66–96; RESP 18–45; TEMP 36.6–37.3; O2SAT 88–100
--- NOTE | 2024-04-25 00:13 | PC.NURSE ---
Phyisican Notification: Notified Dr. Liz of pts request for water and current diet order NPO w/ sips, chips, and meds. New order for clear liquid diet.
[2024-04-25] MEDS: ipratropium-albuterol 3 mL Neb INHALATION ×5 (00:19→20:06)
[2024-04-25] MEDS: cefepime 1,000 MG in sodium chloride 0.9% (plus) 50 ML 100 MG IV ×2 (00:58→15:14)
[2024-04-25] MEDS: methylPREDNISolone sod succ 40 mg/mL INJ IVP ×4 (01:38→19:29)
[2024-04-25] MEDS: lanolin oint 7 gm 1 APPLIC TOPICAL ×3 (02:54→19:31)
[2024-04-25] MEDS: dexmedeTOMIDine 0.9 % NaCL 400 MCG/100 ML PREMIX 12.9800000000000004 MCG IV (03:38)
[2024-04-25 04:17] LABS: Basophils # 0.1 10^3/uL (0.0-0.1); Basophils % 0.3 %; Hematocrit 33.2 % (37-53); Lymphocytes # 0.5 10^3/uL (0.8-4.8); Lymphocytes % 2.8 %; Mean Corpuscular HGB Conc 35.8 g/dL (30-55); Mean Corpuscular Hemoglobin 33.5 pg (27-33); Mean Corpuscular Volume 93.5 fl (82-101); Mean Platelet Volume 11.3 fL (7.4-10.4); Monocytes # 0.6 10^3/uL (0.2-0.9); Monocytes % 3.5 %; Neutrophils # 15.19 10^3/uL (1.8-7.7); Neutrophils % 92.2 %; Nucleated Red Blood Cells % 0 %; Platelet Count 183 10^3/cmm (157-399); Red Blood Count 3.55 10^6/uL (3.85-5.65); Red Cell Distribution Width 12.7 % (12.1-15.1); White Blood Count 16.47 10^3/uL (3.29-11.43)
[2024-04-25 04:43] LABS: Vancomycin Random 22.8 ug/mL (20.0-40.0)
[2024-04-25 05:25] LABS: Alanine Aminotransferase 369 U/L (0-41); Albumin Level 2.5 g/dL (3.5-5.2); Alkaline Phosphatase 53 U/L (40-130); Aspartate Amino Transferase 400 U/L (0-40); Blood Urea Nitrogen 51 mg/dL (6-20); Calcium 7.7 mg/dL (8.5-10.5); Carbon Dioxide 20 mmol/L (22-29); Chloride 89 mmol/L (98-107); Creatinine Clr Calc Pharmacy 14.9905; Globulin 3.5 g/dL (1.3-4.6); Glomerular Filtration Rate 9.9 mL/min (90-130); Glucose 140 mg/dL (65-115); Magnesium 2.4 mg/dL (1.7-2.3); Osmolality Calculated 282 mOsm/kg (285-295); Phosphorus 7.3 mg/dL (2.5-4.5); Sodium 128 mmol/L (136-145); Total Bilirubin 0.3 mg/dL (0.15-1.2)
[2024-04-25 05:46] LABS: Procalcitonin > 100.00 ng/mL (0-0.5)
--- NOTE | 2024-04-25 06:00 | XR_ITS ---
WS: [id number] PORTABLE CHEST HISTORY: Evaluate pneumonia COMPARISON: 04/24/2024, 04/23/2024, PICC line noted with tip ending at the aortocaval junction. Single lead defibrillator. Focal areas of consolidation throughout both lungs but greater consolidation in the LEFT upper lobe. The consolidation and airspace disease has progressed since 04/24/2024. Lung bases appear relatively s pared. Air bronchograms worse in the LEFT upper lobe. No pleural effusion or pneumothorax. Cardiac size: Normal. Mediastinum/Aorta: Normal mediastinum. No osseous abnormality seen. XR/XR chest 1V portable [id number] IMPRESSION: 1. Increasing opacifications and consolidations bilaterally. Greatest consolid ation with air bronchograms LEFT upper lobe. Consider aspiration pneumonia. 2. RIGHT PICC line in satisfactory position. 3. No lobar collapse.
--- NOTE | 2024-04-25 06:52 | P.PN_ITS ---
Subjective 2 Subjective: more awake. on nc 02. he knows that he is in a hospital. he is not sure why. nocp. + sob, headache, confused, weak. trying to get out of bed Medications: Reviewed: Yes Medication Review Details: Current Medications Acetaminophen (Acetaminophen 500 Mg Tablet) 1,000 mg PO Q6H PRN PRN Reason: fever Last Admin: 04/24/24 04:36 Dose: 1,000 mg Albuterol/Ipratropium (Ipratropium-Albuterol 3 Ml Neb) 3 ml INHALATION Q4H.RESPIRATORY ANAY Last Admin: 04/25/24 04:40 Dose: 3 ml Amlodipine Besylate (Amlodipine 5 Mg Tablet) 5 mg PO DAILY ANAY Last Admin: 04/22/24 17:47 Dose: 5 mg Aspirin (Aspirin 81 Mg Ec Tablet) 81 mg PO DAILY ANAY Last Admin: 04/24/24 08:28 Dose: Not Given Calcium Carbonate (Calcium Carbonate 500 Mg Chew Tablet) 1,250 mg PO TID ANAY Last Admin: 04/24/24 20:32 Dose: 1,250 mg Clopidogrel Bisulfate (Clopidogrel 75 Mg Tablet) 75 mg PO DAILY ANAY Last Admin: 04/24/24 08:28 Dose: Not Given Enoxaparin Sodium (Enoxaparin 80 Mg/0.8 Ml Syringe) 80 mg SUBCUT Q24H ANAY Last Admin: 04/24/24 13:29 Dose: 80 mg Amiodarone HCl/Dextrose (Nexterone) 360 mg in 200 mls @ 0 mls/hr IV .Q0M ANAY; Protocol Last Titration: 04/25/24 05:10 Dose: 0.5 mg/min, 16.67 mls/hr Doxycycline Hyclate 100 mg/ (Sodium Chloride) 100 mls @ 100 mls/hr IV Q12H ANAY; Protocol Last Infusion: 04/24/24 20:34 Dose: Infused Thiamine HCl 500 mg/ Sodium (Chloride) 105 mls @ 210 mls/hr IV DAILY ANAY Stop: 04/26/24 08:59 Last Infusion: 04/24/24 09:35 Dose: Infused Dexmedetomidine/Sodium Chloride (Precedex) 400 mcg in 100 mls @ 0 mls/hr IV .Q0M ANAY; Protocol Last Titration: 04/25/24 05:02 Dose: 0.4 mcg/kg/hr, 8.65 mls/hr norepinephrine (Levophed) 4 mg in 250 mls @ 0 mls/hr IV .Q0M [facility]; Protocol Last Titration: 04/24/24 19:00 Dose: Infused Cefepime HCl 1,000 mg/ Sodium (Chloride) 50 mls @ 100 mls/hr IV Q12H [facility]; Protocol Last Infusion: 04/25/24 01:30 Dose: Infused Vancomycin HCl 1,000 mg/ (Sodium Chloride) 250 mls @ 250 mls/hr IV Q48H [facility] Lanolin (Lanolin Oint 7 Gm) 1 applic TOPICAL PRN PRN PRN Reason: DRYNESS Last Admin: 04/25/24 03:37 Dose: 1 applic Lorazepam (Lorazepam 2 Mg Tablet) 2 mg PO Q4H PRN; Protocol PRN Reason: WITHDRAWAL Lorazepam (Lorazepam 2 Mg/Ml Inj 10 Ml Mdv) 2 mg IM Q4H PRN; Protocol PRN Reason: ALCOHOL WITHDRAWAL Lorazepam (Lorazepam 2 Mg/Ml Inj 10 Ml Mdv) 2 mg IVP PRN PRN; Protocol PRN Reason: WITHDRAWAL Last Admin: 04/24/24 03:17 Dose: 2 mg Methylprednisolone Sodium Succinate (Methylprednisolone Sod Succ 40 Mg/Ml Inj) 40 mg IVP Q6H [facility] Last Admin: 04/25/24 01:38 Dose: 40 mg Metoprolol Tartrate (Metoprolol Tartrate 25 Mg Tablet) 25 mg PO BID@0900,2100 [facility] Last Admin: 04/24/24 20:33 Dose: 25 mg Ondansetron HCl (Ondansetron 2 Mg/Ml Sdv 2 Ml) 4 mg IVP Q6H PRN PRN Reason: NAUSEA AND VOMITING Vitals/I&O/Wt Last Vital Signs Temp 99.2 F 04/25/24 06:02 Pulse 81 04/25/24 06:02 Resp 35 H 04/25/24 06:02 BP 149/89 04/25/24 05:00 Pulse Ox 91 04/25/24 06:02 O2 Del Method Nasal Cannula 04/25/24 06:02 O2 Flow Rate 3 04/25/24 06:02 FiO2 28 04/24/24 16:22 04/24/24 04/24/24 04/25/24 14:59 22:59 06:59 Intake Total 2101.932 / 2101.932 532.794 / 4734.726 1089.884 / 3724.610 Output Total 1800 / 1800 125 / 1925 / 1974 Balance 301.932 / 301.932 407.794 / 733.111 5826.884 / 1749.610 Weight last 48 hrs Weight 90.492 kg Weight 95.6 kg Weight 90.265 kg Physical Exam 2 Narrative: obese man in bed, [place] 02. vss, short of breath heent- nc/at lungs crackles- crackles heart irreg+HSM abd soft, nt, nd, + bs right groin dialysis catheter ext + edema neuro- awake, alert, o x 1-2. moves all extremities Urinary Catheter Management: Ramirez: Cath Placed During This Visit: yes Reason for Continuing Indwelling Catheter: Accurate Measurement of Urinary Output in Critically Ill Patients Urinary Catheter Date of Insertion: 04/22/24 Urinary Catheter Time of Insertion: 14:20 Data 04/25/24 03:23 04/25/24 04:58 A&P Assessment and plan (1) LISSETTE (acute kidney injury): 59 yr old man 1. pna- renal dose abx. please check vanco level- keep trough under 19 2. NSTEMI 3. LISSETTE - urinalysis noted- w/ wbc, rbc, granular casts- concern for ATN elevated ur na of 53 -no hydronephrosis on renal us s/p dialysis catheter placement yesterday and initiation of dialysis remains oliguric repeat hd today 3 hrs, remove 2+ liters, 2 k bath repeat CPK - await amy, anca -hep profile noted -h/o+ amy- in 2020 -metabolic acidosis is improving 4. leukocytosis persists 5. hyponatremia- elevated cortisol, normal tsh. elevated ur na 53 -likely from lissette and pna 6. inc LFT's- likely shocked liver, q from rhabdomyolysis 7. elevated pth= will give a vit d analouge 8. a fib controlled please ensure all meds are dosed for GFR <10 seen and examined w/ RN- telehealth visit Plan see above Attestations 2 Medical Necessity Statement*: lissette, pna, AMS Time Spent in Patient Care: 16 - 35 minutes Coding Level of Care Code Acute Code for [facility] Fwd Diagnoses LISSETTE (acute kidney injury) N17.9
[2024-04-25] MEDS: clopidogrel 75 mg Tablet PO (08:11)
[2024-04-25] MEDS: aspirin 81 mg EC Tablet PO (08:11)
[2024-04-25] MEDS: sevelamer 800 mg Tablet PO ×3 (08:11→20:01)
[2024-04-25] MEDS: multivitamin therapeutic Tablet 1 TAB PO (08:11)
[2024-04-25] MEDS: folic acid 1 mg Tablet PO (08:11)
[2024-04-25] MEDS: metoprolol tartrate 25 mg Tablet PO ×2 (08:11→20:01)
[2024-04-25] MEDS: thiamine 100 mg Tablet PO (08:12)
[2024-04-25] MEDS: calcium carbonate 500 mg Chew Tablet 1250 MG PO ×3 (08:12→20:02)
[2024-04-25] MEDS: doxycycline 100 MG in sodium chloride 0.9% (plus) 100 ML IV ×2 (08:12→19:27)
[2024-04-25] MEDS: amiodarone 200 mg Tablet 400 MG PO ×2 (08:12→17:55)
--- NOTE | 2024-04-25 08:30 | P.PN_ITS ---
Subjective 2 Subjective: Patient is confused. No chest pain. Vitals/I&O/Wt Last Vital Signs Temp 98.0 F 04/25/24 08:00 Pulse 73 04/25/24 07:55 Resp 26 H 04/25/24 07:55 BP 149/89 04/25/24 05:00 Pulse Ox 97 04/25/24 07:55 O2 Del Method Nasal Cannula 04/25/24 07:55 O2 Flow Rate 3 04/25/24 07:55 FiO2 28 04/24/24 16:22 04/24/24 04/25/24 04/25/24 22:59 06:59 14:59 Intake Total 532.794 / 2634.726 1089.884 / 3724.610 Output Total 125 / 1925 1974 Balance 407.794 / 757.848 1385.884 / 1749.610 Weight last 48 hrs Weight 199 lb 8 oz Weight 210 lb 12.191 oz Weight 199 lb Physical Exam 2 Narrative: GENERAL: Patient is confused NECK: No jugular vein distension. [] HEENT: No cyanosis. No icterus. No pallor. [] HEART: Regular S1 and S2. No murmur, rub or gallop. [] LUNGS: Clear to auscultate bilaterally. [] CENTRAL NERVOUS SYSTEM: Grossly nonfocal. []Pulses and posterior tibial. [] Urinary Catheter Management: Ramirez: Cath Placed During This Visit: yes, but has since been removed by the nurse Reason for Continuing Indwelling Catheter: Accurate Measurement of Urinary Output in Critically Ill Patients Urinary Catheter Date of Insertion: 04/22/24 Urinary Catheter Time of Insertion: 14:20 Date Urinary Catheter Removed: 04/23/21 Time Urinary Catheter Discontinued: 17:44 Data 04/26/24 03:49 04/26/24 03:49 A&P Assessment and plan (1) Implantable cardioverter-defibrillator (ICD) discharge: Patient is stable since being in hospital. No more shocks reported. (2) Non-ischemic cardiomyopathy: Improved cardiac function. continue current medications. (3) Heart failure with improved ejection fraction (HFimpEF): Patient's heart failure seems to be compensated, from a clinical standpoint. (4) Atrial fibrillation: Switch IV amiodarone to PO amiodarone. Qualifiers: Atrial fibrillation type: persistent (not longstanding) Qualified Code(s): I48.19 - Other persistent atrial fibrillation (5) Type 2 diabetes mellitus: May continue on the current management. 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 Nephrology on board Qualifiers: Acute renal failure type: unspecified Qualified Code(s): N17.9 - Acute kidney failure, unspecified Attestations 2 Medical Necessity Statement*: Care expected to cross 2 midnights. Coding Level of Care Code Acute Code for [facility] Fwd Diagnoses Implantable cardioverter-defibrillator (ICD) discharge Z45.02 Non-ischemic cardiomyopathy I42.8 Heart failure with improved ejection fraction (HFimpEF) I50.32 Persistent atrial fibrillation I48.19 Atrial fibrillation type: persistent (not longstanding) Type 2 diabetes mellitus without complication, without long-term current use of insulin E11.9 Diabetes mellitus nursing home insulin use: without nursing home use Diabetes mellitus complication status: without complication Pneumonia of left upper lobe due to infectious organism J18.9 Laterality: left Lung location: upper lobe of lung Pneumonia type: due to unspecified organism Acute renal failure, unspecified acute renal failure type N17.9 Acute renal failure type: unspecified
[2024-04-25 09:41] LABS: Creatine Phosphokinase 11953 U/L (39-308)
--- NOTE | 2024-04-25 10:29 | P.PN_ITS ---
Subjective 2 Subjective: Patient is more awake and alert this morning. He is not completely oriented but is conversational. He does complain of shortness of breath. Denies fevers or chills. Medications: Reviewed: Yes Vitals/I&O/Wt Last Vital Signs Temp 98.0 F 04/25/24 08:00 Pulse 73 04/25/24 07:55 Resp 26 H 04/25/24 07:55 BP 149/89 04/25/24 05:00 Pulse Ox 97 04/25/24 07:55 O2 Del Method Nasal Cannula 04/25/24 07:55 O2 Flow Rate 3 04/25/24 07:55 FiO2 28 04/24/24 16:22 04/24/24 04/25/24 04/25/24 22:59 06:59 14:59 Intake Total 532.794 / 2634.726 1089.884 / 3724.610 318.804 / 318.804 Output Total 125 / 1925 / 1974 Balance 407.794 / 847.008 8847.884 / 1749.610 318.804 / 318.804 Weight last 48 hrs Weight 90.492 kg Weight 95.6 kg Weight 90.265 kg Physical Exam 2 Narrative: General: Patient is awake. Appears acutely ill. Head: Abrasions on head unchanged from prior exam. Neck: No JVD. Cardiovascular: RRR. No gallops. No murmurs. Trace pedal edema. Lungs: Persistent bilateral rhonchi with faint wheeze. Using accessory muscles. Tachypneic. Conversational dyspnea. Skin: No jaundice. No rashes. Abdomen: Hypoactive bowel sounds, abdomen soft. Extremities: No cyanosis or clubbing. Musculoskeletal: No erythematous joints. Neurological: Moves all 4 extremities. No myoclonus. Encephalopathic. Urinary Catheter Management: Ramirez: Cath Placed During This Visit: yes Reason for Continuing Indwelling Catheter: Accurate Measurement of Urinary Output in Critically Ill Patients Urinary Catheter Date of Insertion: 04/22/24 Urinary Catheter Time of Insertion: 14:20 Data 04/25/24 03:23 04/25/24 04:58 Micro: Microbiology 04/23/24 18:32 Urine Culture - Final Urine,Clean Catch A&P Assessment and plan (1) Septic shock: Source: Community-acquired pneumonia Patient is now off Levophed Continue holding home antihypertensives for now, may be able to restart some later today pending blood pressure response Admission blood cultures negative at 5 days Continue cefepime Continue doxycycline Continue vancomycin MRSA swab is still pending, will discontinue vancomycin if negative Continuous telemetry monitoring (2) Pneumonia: Antibiotics as above Optimize respiratory function Continues to require intermittent BiPAP for distress Qualifiers: Laterality: left Lung location: upper lobe of lung Pneumonia type: due to unspecified organism Qualified Code(s): J18.9 - Pneumonia, unspecified organism (3) Acute renal failure: Oliguric renal failure Strict I's and O's with Ramirez Daily weights Nephrology following, anticipating another session of dialysis today On Renvela Follow-up pending labs Qualifiers: Acute renal failure type: unspecified Qualified Code(s): N17.9 - Acute kidney failure, unspecified (4) Acute metabolic encephalopathy: He remains encephalopathic with mentation slowly improving daily Seems to be tolerating clear liquid diet Will request speech therapy evaluation Consider out of bed to chair today pending clinical course Will request therapy evaluation (5) Non-ischemic cardiomyopathy: ICD discharge twice prior to admission Ejection fraction reportedly improved, although unable to see the echo report Cardiology is following Discontinue amiodarone drip Start amiodarone loading orally with 400 mg twice daily (6) HFrEF (heart failure with reduced ejection fraction): Unable to find recent echo on chart Strict I's and O's Daily weights (7) Atrial fibrillation: Chronic atrial fibrillation Rotating off amiodarone drip to oral amnio load as above Continue with therapeutic Lovenox, renally dosed Qualifiers: Atrial fibrillation type: persistent (not longstanding) Qualified Code(s): I48.19 - Other persistent atrial fibrillation (8) NSTEMI (non-ST elevated myocardial infarction): Suspect presentation is more demand ischemia Cardiology is consulted, appreciate recommendations Continue dual antiplatelet therapy Continue beta-anusha (9) Implantable cardioverter-defibrillator (ICD) discharge: ICD discharge x 2 as noted above Cardiology input noted (10) Alcohol use: Patient is received Warnicke dosing thiamine Rotate to oral thiamine 100 mg daily Folic acid daily Multivitamin CIWA protocol Continue Precedex, wean off as tolerated (11) Tobacco use: Suspect there could be a component of COPD Continue systemic steroids Continue with breathing treatments (12) Head injury: Serial neurologic exams Treat underlying metabolic disorder and sepsis May need additional head imaging pending clinical course (13) Transaminitis: Avoid hepatotoxins Trend liver function enzymes Plan DVT prophylaxis: Lovenox CODE STATUS: Full code Attestations 2 Medical Necessity Statement*: Patient remains encephalopathic requiring ICU level care for close monitoring of respiratory status, Precedex drip, continued IV antibiotics, hemodialysis, and other supportive hospitalist care. Critical Care Time: The high probability of a clinically significant, sudden or life threatening deterioration of the patient's neurologic, respiratory, cardiac system(s) required my full and direct attention, intervention and personal management. The critical care time is as shown. This time is in addition to time spent performing any reported procedures but includes the following: [x] Data and vital sign review and interpretation [x] Patient assessment, examination and intervention [x] Documentation [x] Medication orders and management Critical Care Time (min): 40 Coding Level of Care Code Acute Code for Chg Fwd Diagnoses Septic shock A41.9; R65.21 Pneumonia of left upper lobe due to infectious organism J18.9 Laterality: left Lung location: upper lobe of lung Pneumonia type: due to unspecified organism Acute renal failure, unspecified acute renal failure type N17.9 Acute renal failure type: unspecified Acute metabolic encephalopathy G93.41 Non-ischemic cardiomyopathy I42.8 HFrEF (heart failure with reduced ejection fraction) I50.20 Persistent atrial fibrillation I48.19 Atrial fibrillation type: persistent (not longstanding) NSTEMI (non-ST elevated myocardial infarction) I21.4 Implantable cardioverter-defibrillator (ICD) discharge Z45.02 Alcohol use Z78.9 Tobacco use Z72.0 Head injury S09.90XA Transaminitis R74.01
[2024-04-25] MEDS: heparin, porcine 1,000 unit/mL INJ 10 mL 1000 UNIT IV (11:52)
[2024-04-25 14:49] LABS: Methicillin-Resist S.aureu PCR NOT DETECTED (NOT DETECTED)
[2024-04-25] MEDS: enoxaparin 80 mg/0.8 mL Syringe SUBCUT (15:14)
--- NOTE | 2024-04-25 18:47 | PC.NURSE ---
Large tarry stool noted in bedside commode. Dr. Shah gave order to put Lovenox, plavix and aspirin on hold
[2024-04-25] MEDS: pantoprazole 40 mg SDV IVP (19:23)
[2024-04-25 21:55] LABS: C.Diff PCR (Lab) NEGATIVE (Negative)
[2024-04-26] VITALS (35 sets, daily range): BP systolic 134–183; BP diastolic 70–102; PULSE 73–112; RESP 16–33; TEMP 36.1–36.8; O2SAT 86–98; BMI 28.3
[2024-04-26] MEDS: cefepime 1,000 MG in sodium chloride 0.9% (plus) 50 ML 100 MG IV ×2 (00:48→13:34)
[2024-04-26] MEDS: methylPREDNISolone sod succ 40 mg/mL INJ IVP ×3 (01:53→13:41)
[2024-04-26] MEDS: ipratropium-albuterol 3 mL Neb INHALATION ×6 (03:03→23:26)
--- NOTE | 2024-04-26 04:00 | XRR_ITS ---
PROCEDURE INFORMATION: Exam: XR Chest Exam date and time: 04/26/2024 3:37 AM Age: 59 years old Clinical indication: Dyspnea; Prior surgery; Surgery date: 6+ months; Surgery type: Pacemaker; Additional info: Respiratory failure TECHNIQUE: Imaging protocol: Radiologic exam of the chest. Views: 1 view. COMPARISON: CR XR chest 1V portable [id number] 04/25/2024 6:12 AM FINDINGS: Tubes, catheters and devices: Left chest ICD positioning is unchanged. PICC line terminates in the distal superior vena cava. Lungs: Upper lobe opacities more dense on the left than the right similar to the comparison. Pleural spaces: Unremarkable. No pleural effusion. No pneumothorax. Heart/Mediastinum: Mild cardiomegaly. Bones/joints: Unremarkable. XR/XR chest 1V portable [id number] IMPRESSION: No significant changes on exam.
[2024-04-26 04:05] LABS: Basophils % 0.2 %; Hematocrit 34.5 % (37-53); Lymphocytes # 0.7 10^3/uL (0.8-4.8); Lymphocytes % 3.5 %; Mean Corpuscular HGB Conc 35.1 g/dL (30-55); Mean Corpuscular Hemoglobin 33.2 pg (27-33); Mean Corpuscular Volume 94.8 fl (82-101); Mean Platelet Volume 10.6 fL (7.4-10.4); Monocytes # 0.9 10^3/uL (0.2-0.9); Monocytes % 4.6 %; Neutrophils # 16.82 10^3/uL (1.8-7.7); Neutrophils % 89.9 %; Nucleated Red Blood Cells % 0 %; Platelet Count 222 10^3/cmm (157-399); Red Blood Count 3.64 10^6/uL (3.85-5.65); Red Cell Distribution Width 12.8 % (12.1-15.1); White Blood Count 18.71 10^3/uL (3.29-11.43)
[2024-04-26 04:24] LABS: Albumin Level 2.4 g/dL (3.5-5.2); Alkaline Phosphatase 69 U/L (40-130); Blood Urea Nitrogen 50 mg/dL (6-20); Calcium 8.1 mg/dL (8.5-10.5); Carbon Dioxide 20 mmol/L (22-29); Chloride 94 mmol/L (98-107); Globulin 3.3 g/dL (1.3-4.6); Glomerular Filtration Rate 11.4 mL/min (90-130); Glucose 142 mg/dL (65-115); Magnesium 2.4 mg/dL (1.7-2.3); Osmolality Calculated 288 mOsm/kg (285-295); Phosphorus 5.8 mg/dL (2.5-4.5); Sodium 131 mmol/L (136-145); Total Bilirubin 0.4 mg/dL (0.15-1.2); Total Protein 5.7 g/dL (6.6-8.7)
[2024-04-26 04:26] LABS: Alanine Aminotransferase 277 U/L (0-41); Anion Gap 22.2 (5-19); Aspartate Amino Transferase 288 U/L (0-40); Potassium 5.2 mmol/L (3.5-5.1)
[2024-04-26 04:52] LABS: Creatine Phosphokinase 10126 U/L (39-308)
[2024-04-26] MEDS: pantoprazole 40 mg SDV IVP ×2 (06:05→18:20)
[2024-04-26 07:18] LABS: Vancomycin Trough 15.7 ug/mL (10-15)
--- NOTE | 2024-04-26 08:06 | P.PN_ITS ---
Subjective 2 Subjective: feels better. more alert. no n/v/f/c/jackson/d/no leg pains. Medications: Reviewed: Yes Medication Review Details: Current Medications Acetaminophen (Acetaminophen 500 Mg Tablet) 1,000 mg PO Q6H PRN PRN Reason: fever Last Admin: 04/24/24 04:36 Dose: 1,000 mg Albuterol/Ipratropium (Ipratropium-Albuterol 3 Ml Neb) 3 ml INHALATION Q4H.RESPIRATORY ANAY Last Admin: 04/26/24 08:01 Dose: 3 ml Amiodarone HCl (Amiodarone 200 Mg Tablet) 400 mg PO BID ANAY Last Admin: 04/25/24 17:55 Dose: 400 mg Aspirin (Aspirin 81 Mg Ec Tablet) 81 mg PO DAILY [facility] Last Admin: 04/25/24 08:11 Dose: 81 mg Calcium Carbonate (Calcium Carbonate 500 Mg Chew Tablet) 1,250 mg PO TID [facility] Last Admin: 04/25/24 20:02 Dose: 1,250 mg Clopidogrel Bisulfate (Clopidogrel 75 Mg Tablet) 75 mg PO DAILY ANAY Last Admin: 04/25/24 08:11 Dose: 75 mg Enoxaparin Sodium (Enoxaparin 80 Mg/0.8 Ml Syringe) 80 mg SUBCUT Q24H [facility] Last Admin: 04/25/24 15:14 Dose: 80 mg Folic Acid (Folic Acid 1 Mg Tablet) 1 mg PO DAILY [facility] Last Admin: 04/25/24 08:11 Dose: 1 mg Doxycycline Hyclate 100 mg/ (Sodium Chloride) 100 mls @ 100 mls/hr IV Q12H [facility]; Protocol Last Infusion: 04/25/24 20:30 Dose: Infused Dexmedetomidine/Sodium Chloride (Precedex) 400 mcg in 100 mls @ 0 mls/hr IV .Q0M [facility]; Protocol Last Titration: 04/25/24 19:00 Dose: Infused Cefepime HCl 1,000 mg/ Sodium (Chloride) 50 mls @ 100 mls/hr IV Q12H [facility]; Protocol Last Infusion: 04/26/24 01:20 Dose: Infused Lanolin (Lanolin Oint 7 Gm) 1 applic TOPICAL PRN PRN PRN Reason: DRYNESS Last Admin: 04/25/24 19:31 Dose: 1 applic Lorazepam (Lorazepam 2 Mg Tablet) 2 mg PO Q4H PRN; Protocol PRN Reason: WITHDRAWAL Lorazepam (Lorazepam 2 Mg/Ml Inj 10 Ml Mdv) 2 mg IM Q4H PRN; Protocol PRN Reason: ALCOHOL WITHDRAWAL Lorazepam (Lorazepam 2 Mg/Ml Inj 10 Ml Mdv) 2 mg IVP PRN PRN; Protocol PRN Reason: WITHDRAWAL Last Admin: 04/24/24 03:17 Dose: 2 mg Methylprednisolone Sodium Succinate (Methylprednisolone Sod Succ 40 Mg/Ml Inj) 40 mg IVP Q6H [facility] Last Admin: 04/26/24 01:53 Dose: 40 mg Metoprolol Tartrate (Metoprolol Tartrate 25 Mg Tablet) 25 mg PO BID@0900,2100 [facility] Last Admin: 04/25/24 20:01 Dose: 25 mg Multivitamins Therapeutic (Multivitamin Therapeutic Tablet) 1 tab PO DAILY [facility] Last Admin: 04/25/24 08:11 Dose: 1 tab Ondansetron HCl (Ondansetron 2 Mg/Ml Sdv 2 Ml) 4 mg IVP Q6H PRN PRN Reason: NAUSEA AND VOMITING Pantoprazole Sodium (Pantoprazole 40 Mg Sdv) 40 mg IVP Q12H [facility] Last Admin: 04/26/24 06:05 Dose: 40 mg Senna/Docusate Sodium (Sennosides-Docusate Tablet) 2 tab PO BID [facility] Last Admin: 04/25/24 17:55 Dose: Not Given Sevelamer Carbonate (Sevelamer 800 Mg Tablet) 800 mg PO TID [facility] Last Admin: 04/25/24 20:01 Dose: 800 mg Thiamine Mononitrate (Thiamine 100 Mg Tablet) 100 mg PO DAILY [facility] Last Admin: 04/25/24 08:12 Dose: 100 mg Vitals/I&O/Wt Last Vital Signs Temp 98.2 F 04/26/24 05:00 Pulse 80 04/26/24 08:00 Resp 16 04/26/24 08:00 BP 153/78 04/26/24 06:00 Pulse Ox 96 04/26/24 08:00 O2 Del Method Nasal Cannula 04/26/24 08:00 O2 Flow Rate 2 04/26/24 08:00 FiO2 28 04/24/24 16:22 04/25/24 04/26/24 04/26/24 22:59 06:59 14:59 Intake Total 570 / 913.504 50 / 963.504 Output Total 2301 / 2301 125 / 2426 Balance -1731 / -1387.496 -75 / -1462.496 Weight last 48 hrs Weight 89.494 kg Weight 89.1 kg Weight 90.492 kg Weight 95.6 kg Physical Exam 2 Narrative: obese man in bed, comfortable in NC 02. vss, short of breath heent- nc/at lungs crackles decreased heart irreg+HSM abd soft, nt, nd, + bs right groin dialysis catheter ext + edema neuro- awake, alert, o x 2+. moves all extremities Urinary Catheter Management: Ramirez: Cath Placed During This Visit: yes Reason for Continuing Indwelling Catheter: Accurate Measurement of Urinary Output in Critically Ill Patients Urinary Catheter Date of Insertion: 04/22/24 Urinary Catheter Time of Insertion: 14:20 Data 04/26/24 03:49 04/26/24 03:49 Micro: Microbiology 04/25/24 20:43 Occult Blood (FIT) - Final Stool Routine Collection 04/23/24 18:32 Urine Culture - Final Urine,Clean Catch A&P Assessment and plan (1) LISSETTE (acute kidney injury): 59 yr old man 1. pna- renal dose abx. keep trough under 19 2. NSTEMI 3. LISSETTE - urinalysis noted- w/ wbc, rbc, granular casts- concern for ATN elevated ur na of 53 -no hydronephrosis on renal us s/p dialysis catheter placement yesterday and initiation of dialysis s/p HD x 2 repeat CPK [id number] - await amy, anca -hep profile noted -h/o+ amy- in 2020 -metabolic acidosis is improving hold dialysis today and monitor for renal recovery -give lasix as needed. 4. leukocytosis persists. he is on steroids and abx 5. hyponatremia- elevated cortisol, normal tsh. elevated ur na 53 -likely from lissette and pna na improved to 131 6. inc LFT's- likely shocked liver, q from rhabdomyolysis improving 7. elevated pth= will give a vit d analouge phos improving 8. a fib controlled please ensure all meds are dosed for GFR <10 seen and examined w/ RN- telehealth visit Plan see above Attestations 2 Medical Necessity Statement*: lissette, pna. improving sepsis and rhabdomyolysis Time Spent in Patient Care: Greater than 35 minutes Coding Level of Care Code Acute Code for Chg Fwd Diagnoses LISSETTE (acute kidney injury) N17.9
--- NOTE | 2024-04-26 08:42 | P.PN_ITS ---
Subjective 2 Subjective: Patient is stable. Vitals/I&O/Wt Last Vital Signs Temp 98.2 F 04/26/24 05:00 Pulse 80 04/26/24 08:00 Resp 16 04/26/24 08:00 BP 153/78 04/26/24 06:00 Pulse Ox 96 04/26/24 08:00 O2 Del Method Nasal Cannula 04/26/24 08:00 O2 Flow Rate 2 04/26/24 08:00 FiO2 28 04/24/24 16:22 04/25/24 04/26/24 04/26/24 22:59 06:59 14:59 Intake Total 570 / 913.504 50 / 963.504 Output Total 2301 / 2301 125 / 2426 Balance -1731 / -1387.496 -75 / -1462.496 Weight last 48 hrs Weight 197 lb 4.8 oz Weight 196 lb 6.91 oz Weight 199 lb 8 oz Weight 210 lb 12.191 oz Physical Exam 2 Narrative: GENERAL: Patient is alert today NECK: No jugular vein distension. [] HEENT: No cyanosis. No icterus. No pallor. [] HEART: Regular S1 and S2. No murmur, rub or gallop. [] LUNGS: Clear to auscultate bilaterally. [] CENTRAL NERVOUS SYSTEM: Grossly nonfocal. Urinary Catheter Management: Ramirez: Cath Placed During This Visit: yes, but has since been removed by the nurse Reason for Continuing Indwelling Catheter: Accurate Measurement of Urinary Output in Critically Ill Patients Urinary Catheter Date of Insertion: 04/22/24 Urinary Catheter Time of Insertion: 14:20 Date Urinary Catheter Removed: 04/23/21 Time Urinary Catheter Discontinued: 17:44 Data 04/28/24 04:33 04/28/24 04:33 Micro: Microbiology 04/25/24 20:43 Occult Blood (FIT) - Final Stool Routine Collection 04/23/24 18:32 Urine Culture - Final Urine,Clean Catch A&P Assessment and plan (1) Implantable cardioverter-defibrillator (ICD) discharge: Patient is stable since being in hospital. (2) Non-ischemic cardiomyopathy: Improved cardiac function. continue current medications. (3) Heart failure with improved ejection fraction (HFimpEF): Patient's heart failure seems to be compensated, from a clinical standpoint. (4) Atrial fibrillation: Continue PO amiodarone.Anticoagulation if able. Qualifiers: Atrial fibrillation type: persistent (not longstanding) Qualified Code(s): I48.19 - Other persistent atrial fibrillation (5) Type 2 diabetes mellitus: May continue on the current management. Qualifiers: Diabetes mellitus half-way insulin use: without half-way use Diabetes mellitus complication status: without complication Qualified Code(s): E11.9 - Type 2 diabetes mellitus without complications (6) Pneumonia: Antibiotic therapy per primary team Qualifiers: Laterality: left Lung location: upper lobe of lung Pneumonia type: due to unspecified organism Qualified Code(s): J18.9 - Pneumonia, unspecified organism (7) Acute renal failure: Nephrology on board Qualifiers: Acute renal failure type: unspecified Qualified Code(s): N17.9 - Acute kidney failure, unspecified Plan Improving Attestations 2 Medical Necessity Statement*: Care expected to cross 2 midnights. Coding Level of Care Code Acute Code for [facility] Fwd Diagnoses Implantable cardioverter-defibrillator (ICD) discharge Z45.02 Non-ischemic cardiomyopathy I42.8 Heart failure with improved ejection fraction (HFimpEF) I50.32 Persistent atrial fibrillation I48.19 Atrial fibrillation type: persistent (not longstanding) Type 2 diabetes mellitus without complication, without long-term current use of insulin E11.9 Diabetes mellitus papier mache' molder insulin use: without papier mache' molder use Diabetes mellitus complication status: without complication Pneumonia of left upper lobe due to infectious organism J18.9 Laterality: left Lung location: upper lobe of lung Pneumonia type: due to unspecified organism Acute renal failure, unspecified acute renal failure type N17.9 Acute renal failure type: unspecified
[2024-04-26] MEDS: calcium carbonate 500 mg Chew Tablet 1250 MG PO ×3 (08:47→21:12)
[2024-04-26] MEDS: sevelamer 800 mg Tablet PO ×3 (08:48→21:12)
[2024-04-26] MEDS: metoprolol tartrate 25 mg Tablet PO ×2 (08:48→21:12)
[2024-04-26] MEDS: folic acid 1 mg Tablet PO (08:48)
[2024-04-26] MEDS: thiamine 100 mg Tablet PO (08:48)
[2024-04-26] MEDS: amiodarone 200 mg Tablet 400 MG PO ×2 (08:48→17:12)
[2024-04-26] MEDS: sennosides-docusate Tablet 2 TAB PO (08:48)
[2024-04-26] MEDS: doxycycline 100 MG in sodium chloride 0.9% (plus) 100 ML IV ×2 (08:49→21:11)
[2024-04-26] MEDS: multivitamin therapeutic Tablet 1 TAB PO (08:49)
[2024-04-26] MEDS: FUROsemide 10 mg/mL SDV 10mL 60 MG IVP (08:50)
--- NOTE | 2024-04-26 12:59 | P.PN_ITS ---
Subjective 2 Subjective: Patient admitted 150 mill of urine Leukocytosis around 18,000 Patient still nonoliguric phase Plan for Lasix to monitor renal recovery Patient had a bowel movement today No active complaint He is happy with his progress so far Currently on 2 L nasal cannula Afebrile Left upper lobe opacities more dense Vitals/I&O/Wt Last Vital Signs Temp 98.2 F 04/26/24 05:00 Pulse 87 04/26/24 11:31 Resp 16 04/26/24 11:28 BP 153/78 04/26/24 06:00 Pulse Ox 92 04/26/24 11:28 O2 Del Method Nasal Cannula 04/26/24 11:28 O2 Flow Rate 2 04/26/24 11:28 FiO2 28 04/24/24 16:22 04/25/24 04/26/24 04/26/24 22:59 06:59 14:59 Intake Total 570 / 913.504 50 / 963.504 Output Total 2301 / 2301 125 / 2426 Balance -1731 / -1387.496 -75 / -1462.496 Weight last 48 hrs Weight 89.494 kg Weight 89.1 kg Weight 90.492 kg Physical Exam 2 Narrative: Awake and alert Euvolemic Currently on 2 L Hemodynamically stable GCS 15 Nonfocal neuroexam Patient able to go to the bathroom on his own Son at the bedside Ramirez catheter in place Urinary Catheter Management: Ramirez: Cath Placed During This Visit: yes, but has since been removed by the nurse Reason for Continuing Indwelling Catheter: Accurate Measurement of Urinary Output in Critically Ill Patients Urinary Catheter Date of Insertion: 04/22/24 Urinary Catheter Time of Insertion: 14:20 Date Urinary Catheter Removed: 04/23/21 Time Urinary Catheter Discontinued: 17:44 Data 04/26/24 03:49 04/26/24 03:49 Micro: Microbiology 04/25/24 23:21 Gram Stain - Final Sputum - Expectorated Sputum Sputum Culture - Preliminary 04/25/24 20:43 Occult Blood (FIT) - Final Stool Routine Collection 04/23/24 18:32 Urine Culture - Final Urine,Clean Catch A&P Assessment and plan (1) Alcohol use: (2) Heart failure with improved ejection fraction (HFimpEF): (3) Non-ischemic cardiomyopathy: (4) Implantable cardioverter-defibrillator (ICD) discharge: (5) Atrial fibrillation: Qualifiers: Atrial fibrillation type: persistent (not longstanding) Qualified Code(s): I48.19 - Other persistent atrial fibrillation (6) Type 2 diabetes mellitus: Qualifiers: Diabetes mellitus meterman insulin use: without meterman use Diabetes mellitus complication status: without complication Qualified Code(s): E11.9 - Type 2 diabetes mellitus without complications (7) Exertional dyspnea: (8) Septic shock: (9) Acute metabolic encephalopathy: (10) Pneumonia: Qualifiers: Laterality: left Lung location: upper lobe of lung Pneumonia type: due to unspecified organism Qualified Code(s): J18.9 - Pneumonia, unspecified organism (11) ATN (acute tubular necrosis): (12) Rhabdomyolysis: Plan ATN: Plan to use Lasix today Holding off on dialysis Oliguric related to septic shock Left upper lobe infiltrate, dense consolidation In case he spiked spiking fever again will require CT chest without contrast Improved ejection fraction with underlying nonischemic cardiomyopathy Status post AICD Appreciate cardiology recommendations Type II [place]? No active chest pain Septic shock: Improved Metabolic encephalopathy: Improved Alcohol dependence: No active signs of withdrawal DVT prophylaxis: We have held anticoagulating agent because of worsening creatinine, Patient was taking Eliquis at home Change Lovenox to heparin He is full code A-fib: Without RVR Continue amiodarone PT evaluation Attestations 2 Medical Necessity Statement*: Can transfer out of ICU, Diagnoses Alcohol use Z78.9 Heart failure with improved ejection fraction (HFimpEF) I50.32 Non-ischemic cardiomyopathy I42.8 Implantable cardioverter-defibrillator (ICD) discharge Z45.02 Persistent atrial fibrillation I48.19 Atrial fibrillation type: persistent (not longstanding) Type 2 diabetes mellitus without complication, without long-term current use of insulin E11.9 Diabetes mellitus meterman insulin use: without [facility] use Diabetes mellitus complication status: without complication Exertional dyspnea R06.00 Septic shock A41.9; R65.21 Acute metabolic encephalopathy G93.41 Pneumonia of left upper lobe due to infectious organism J18.9 Laterality: left Lung location: upper lobe of lung Pneumonia type: due to unspecified organism ATN (acute tubular necrosis) N17.0 Rhabdomyolysis M62.82
--- NOTE | 2024-04-26 13:06 | CTR_ITS ---
PROCEDURE INFORMATION: Exam: CT Chest Without Contrast; Diagnostic Exam date and time: 04/26/2024 3:25 PM Age: 59 years old Clinical indication: Condition or disease; Other: Left upper lobe infiltrate; Prior surgery; Surgery date: 6+ months; Surgery type: Pacer 2020 TECHNIQUE: Imaging protocol: Diagnostic computed tomography of the chest without contrast. Radiation optimization: All CT scans at this facility use at least one of these dose optimization techniques: automated exposure control; mA and/or kV adjustment per patient size (includes targeted exams where dose is matched to clinical indication); or iterative reconstruction. COMPARISON: CT angio chest PE protcl [id number] 04/21/2021 1:19 PM RADIATION DOSE METRICS: Total DLP (mGy-cm): 620.27 FINDINGS: Lungs: Multifocal consolidative and ground-glass opacities worst in the ldox-ttvqvec-nnxj-right upper lobes. Pleural spaces: Trace bilateral pleural effusions. Heart: Coronary calcifications. No pericardial effusion. Lymph nodes: Reactive appearing mediastinal/hilar lymph nodes. Vasculature: No aortic aneurysm. Bones/joints: No acute findings Soft tissues: No acute findings. CT/CT chest [facility] [id number] IMPRESSION: Multifocal consolidative opacities worst in the fizo-[id number]-ttbz-right upper lobes. Trace bilateral pleural effusions.
[2024-04-26 13:20] LABS: Anti-Double Strand DNA AB <1 IU/mL
[2024-04-26] MEDS: hyDRALAzine 25 mg Tablet PO (17:10)
[2024-04-26] MEDS: heparin 5,000 unit/mL INJ 1 mL 5000 UNIT SUBCUT (17:13)
[2024-04-26] MEDS: amlodipine 10 mg Tablet PO (18:21)
--- NOTE | 2024-04-26 19:15 | PC.NURSE ---
SHift SUmmary: Uneventful shift. Patient rested in bed for most of the day, did work with PT and went to CT. Started on amlodipine and hydralazine due to hypertension. Total urine output: 150
--- NOTE | 2024-04-26 23:04 | PC.NURSE ---
Patient resting, did not want SCDs applied so he could rest. Educated pt on SCDs.
[2024-04-27] VITALS (16 sets, daily range): BP systolic 142–156; BP diastolic 74–81; PULSE 70–83; RESP 16–20; TEMP 36.4–36.6; O2SAT 92–98; BMI 29.9
[2024-04-27] MEDS: cefepime 1,000 MG in sodium chloride 0.9% (plus) 50 ML 100 MG IV ×2 (02:09→14:45)
[2024-04-27] MEDS: heparin 5,000 unit/mL INJ 1 mL 5000 UNIT SUBCUT (02:10)
[2024-04-27] MEDS: ipratropium-albuterol 3 mL Neb INHALATION ×6 (03:12→23:37)
[2024-04-27 05:06] LABS: Basophils # 0.1 10^3/uL (0.0-0.1); Basophils % 0.3 %; Eosinophils % 0.1 %; Hematocrit 31.3 % (37-53); Lymphocytes # 0.8 10^3/uL (0.8-4.8); Lymphocytes % 4.7 %; Mean Corpuscular HGB Conc 35.1 g/dL (30-55); Mean Corpuscular Hemoglobin 33.4 pg (27-33); Mean Corpuscular Volume 95.1 fl (82-101); Mean Platelet Volume 10.7 fL (7.4-10.4); Monocytes # 0.9 10^3/uL (0.2-0.9); Monocytes % 5.7 %; Neutrophils # 13.43 10^3/uL (1.8-7.7); Neutrophils % 84.8 %; Nucleated Red Blood Cells % 0 %; Platelet Count 214 10^3/cmm (157-399); Red Blood Count 3.29 10^6/uL (3.85-5.65); Red Cell Distribution Width 13.1 % (12.1-15.1); White Blood Count 15.84 10^3/uL (3.29-11.43)
[2024-04-27 05:25] LABS: Vancomycin Random 12.3 ug/mL (20.0-40.0)
[2024-04-27 05:27] LABS: Alanine Aminotransferase 276 U/L (0-41); Albumin Level 2.5 g/dL (3.5-5.2); Alkaline Phosphatase 72 U/L (40-130); Anion Gap 21.9 (5-19); Aspartate Amino Transferase 242 U/L (0-40); Blood Urea Nitrogen 79 mg/dL (6-20); Calcium 7.8 mg/dL (8.5-10.5); Carbon Dioxide 19 mmol/L (22-29); Chloride 94 mmol/L (98-107); Globulin 2.9 g/dL (1.3-4.6); Glomerular Filtration Rate 8.4 mL/min (90-130); Glucose 148 mg/dL (65-115); Magnesium 2.6 mg/dL (1.7-2.3); Osmolality Calculated 298 mOsm/kg (285-295); Phosphorus 6.9 mg/dL (2.5-4.5); Potassium 3.9 mmol/L (3.5-5.1); Sodium 131 mmol/L (136-145); Total Bilirubin 0.4 mg/dL (0.15-1.2); Total Protein 5.4 g/dL (6.6-8.7)
[2024-04-27 05:43] LABS: Creatinine Clr Calc Pharmacy 13.4899
[2024-04-27] MEDS: pantoprazole 40 mg SDV IVP ×2 (06:25→18:27)
--- NOTE | 2024-04-27 08:15 | P.PN_ITS ---
Subjective 2 Subjective: still oliguric. much more awake. feels better. no n/v/f/c/jackson/d/leg pains/ sob. Medications: Reviewed: Yes Medication Review Details: Current Medications Acetaminophen (Acetaminophen 500 Mg Tablet) 1,000 mg PO Q6H PRN PRN Reason: fever Last Admin: 04/24/24 04:36 Dose: 1,000 mg Albuterol/Ipratropium (Ipratropium-Albuterol 3 Ml Neb) 3 ml INHALATION Q4H.RESPIRATORY ANAY Last Admin: 04/27/24 07:22 Dose: 3 ml Amiodarone HCl (Amiodarone 200 Mg Tablet) 400 mg PO BID [facility] Last Admin: 04/26/24 17:12 Dose: 400 mg Amlodipine Besylate (Amlodipine 10 Mg Tablet) 10 mg PO DAILY [facility] Last Admin: 04/26/24 18:21 Dose: 10 mg Aspirin (Aspirin 81 Mg Ec Tablet) 81 mg PO DAILY [facility] Last Admin: 04/25/24 08:11 Dose: 81 mg Calcium Carbonate (Calcium Carbonate 500 Mg Chew Tablet) 1,250 mg PO TID [facility] Last Admin: 04/26/24 21:12 Dose: 1,250 mg Clopidogrel Bisulfate (Clopidogrel 75 Mg Tablet) 75 mg PO DAILY [facility] Last Admin: 04/25/24 08:11 Dose: 75 mg Enoxaparin Sodium (Enoxaparin 80 Mg/0.8 Ml Syringe) 80 mg SUBCUT Q24H [facility] Last Admin: 04/25/24 15:14 Dose: 80 mg Folic Acid (Folic Acid 1 Mg Tablet) 1 mg PO DAILY [facility] Last Admin: 04/26/24 08:48 Dose: 1 mg Heparin Sodium (Porcine) (Heparin 5,000 Unit/Ml Inj 1 Ml) 5,000 unit SUBCUT Q12H [facility] Last Admin: 04/27/24 02:10 Dose: 5,000 unit Hydralazine HCl (Hydralazine 25 Mg Tablet) 25 mg PO BID [facility] Last Admin: 04/26/24 17:10 Dose: 25 mg Doxycycline Hyclate 100 mg/ (Sodium Chloride) 100 mls @ 100 mls/hr IV Q12H [facility]; Protocol Last Infusion: 04/26/24 22:29 Dose: Infused Dexmedetomidine/Sodium Chloride (Precedex) 400 mcg in 100 mls @ 0 mls/hr IV .Q0M [facility]; Protocol Last Titration: 04/25/24 19:00 Dose: Infused Cefepime HCl 1,000 mg/ Sodium (Chloride) 50 mls @ 100 mls/hr IV Q12H [facility]; Protocol Last Infusion: 04/27/24 02:47 Dose: Infused Lanolin (Lanolin Oint 7 Gm) 1 applic TOPICAL PRN PRN PRN Reason: DRYNESS Last Admin: 04/25/24 19:31 Dose: 1 applic Lorazepam (Lorazepam 2 Mg Tablet) 2 mg PO Q4H PRN; Protocol PRN Reason: WITHDRAWAL Lorazepam (Lorazepam 2 Mg/Ml Inj 10 Ml Mdv) 2 mg IM Q4H PRN; Protocol PRN Reason: ALCOHOL WITHDRAWAL Lorazepam (Lorazepam 2 Mg/Ml Inj 10 Ml Mdv) 2 mg IVP PRN PRN; Protocol PRN Reason: WITHDRAWAL Last Admin: 04/24/24 03:17 Dose: 2 mg Metoprolol Tartrate (Metoprolol Tartrate 25 Mg Tablet) 25 mg PO BID@0900,2100 [facility] Last Admin: 04/26/24 21:12 Dose: 25 mg Multivitamins Therapeutic (Multivitamin Therapeutic Tablet) 1 tab PO DAILY [facility] Last Admin: 04/26/24 08:49 Dose: 1 tab Ondansetron HCl (Ondansetron 2 Mg/Ml Sdv 2 Ml) 4 mg IVP Q6H PRN PRN Reason: NAUSEA AND VOMITING Pantoprazole Sodium (Pantoprazole 40 Mg Sdv) 40 mg IVP Q12H [facility] Last Admin: 04/27/24 06:25 Dose: 40 mg Senna/Docusate Sodium (Sennosides-Docusate Tablet) 2 tab PO BID [facility] Last Admin: 04/26/24 17:13 Dose: Not Given Sevelamer Carbonate (Sevelamer 800 Mg Tablet) 800 mg PO TID [facility] Last Admin: 04/26/24 21:12 Dose: 800 mg Thiamine Mononitrate (Thiamine 100 Mg Tablet) 100 mg PO DAILY [facility] Last Admin: 04/26/24 08:48 Dose: 100 mg Vitals/I&O/Wt Last Vital Signs Temp 97.9 F 04/27/24 08:00 Pulse 83 04/27/24 08:00 Resp 17 04/27/24 08:00 BP 152/78 04/27/24 08:00 Pulse Ox 94 04/27/24 08:00 O2 Del Method Nasal Cannula 04/27/24 07:23 O2 Flow Rate 2 04/27/24 07:23 FiO2 28 04/24/24 16:22 04/26/24 04/27/24 04/27/24 22:59 06:59 14:59 Intake Total 690 / 1090 140 / 1230 Balance 690 / 940 140 / 1080 Weight last 48 hrs Weight 94.483 kg Weight 94.347 kg Weight 89.494 kg Weight 89.1 kg Physical Exam 2 Narrative: obese man in bed, comfortable in NC 02. vss heent- nc/at lungs left base wheezes, right clear heart irreg+HSM abd soft, nt, nd, + bs right groin dialysis catheter ext + edema improved neuro- awake, alert, o x 3. moves all extremities Urinary Catheter Management: Ramirez: Cath Placed During This Visit: yes, but has since been removed by the nurse Reason for Continuing Indwelling Catheter: Acute Urinary Retention or Obstruction Urinary Catheter Date of Insertion: 04/22/24 Urinary Catheter Time of Insertion: 14:20 Date Urinary Catheter Removed: 04/23/21 Time Urinary Catheter Discontinued: 17:44 Data 04/27/24 04:27 04/27/24 04:27 Micro: Microbiology 04/25/24 23:21 Gram Stain - Final Sputum - Expectorated Sputum Sputum Culture - Preliminary A&P Assessment and plan (1) LISSETTE (acute kidney injury): 59 yr old man 1. pna- renal dose abx. keep trough under 19 2. NSTEMI 3. LISSETTE - urinalysis noted- w/ wbc, rbc, granular casts- concern for ATN elevated ur na of 53 -no hydronephrosis on renal us s/p dialysis catheter placement yesterday and initiation of dialysis s/p HD x 2 repeat CPK [id number] - await amy, anca -hep profile noted -h/o+ amy- in 2020 -metabolic acidosis from lissette- bicarb 19 hold dialysis today and monitor for renal recovery -give lasix as oliguric 4. leukocytosis persists. he is on steroids and abx 5. hyponatremia- elevated cortisol, normal tsh. elevated ur na 53 -likely from lissette and pna na improved to 131 6. inc LFT's- likely shocked liver, q from rhabdomyolysis improving 7. elevated pth= will give a vit d analouge phos improving 8. a fib controlled -hold eliquis please ensure all meds are dosed for GFR <10 if cr continues to rise then may need a permacath discussed w/ Dr Pettit seen and examined w/ RN- telehealth visit Plan see above Attestations 2 Medical Necessity Statement*: lissette, pna Time Spent in Patient Care: 16 - 35 minutes Coding Level of Care Code Acute Code for Chg Fwd Diagnoses LISSETTE (acute kidney injury) N17.9
[2024-04-27] MEDS: doxycycline 100 MG in sodium chloride 0.9% (plus) 100 ML IV (08:26)
[2024-04-27 09:03] LABS: Creatine Phosphokinase 5958 U/L (39-308)
[2024-04-27] MEDS: FUROsemide 10 mg/mL SDV 10mL 60 MG IVP ×2 (09:13→21:14)
[2024-04-27] MEDS: amiodarone 200 mg Tablet 400 MG PO ×2 (09:19→18:26)
[2024-04-27] MEDS: amlodipine 10 mg Tablet PO (09:20)
[2024-04-27] MEDS: hyDRALAzine 25 mg Tablet PO ×2 (09:21→18:26)
[2024-04-27] MEDS: folic acid 1 mg Tablet PO (09:21)
[2024-04-27] MEDS: metoprolol tartrate 25 mg Tablet PO ×2 (09:21→21:15)
[2024-04-27] MEDS: multivitamin therapeutic Tablet 1 TAB PO (09:22)
[2024-04-27] MEDS: sennosides-docusate Tablet 2 TAB PO ×2 (09:22→18:27)
[2024-04-27] MEDS: sevelamer 800 mg Tablet PO ×3 (09:22→21:15)
[2024-04-27] MEDS: thiamine 100 mg Tablet PO (09:23)
[2024-04-27 09:39] LABS: Anti-Nuclear Antibody Pattern Nuclear, Homogeneous; Anti-Nuclear Antibody Screen POSITIVE (NEGATIVE)
--- NOTE | 2024-04-27 10:30 | PC.CHAP ---
Pastoral Care Encounter/Spiritual Assessment Type of Contact [] Declined practicing dermatologist visit [] Patient/Family/Request visit [] Outpatient visit [] Follow-up visit [] Physician referral [] Code/Alert [] Routine visit [] Staff referral [] Actively dying [x] Patient sleeping [x] Family support [] [] Out of room [] Palliative care [] [] Receiving care in room [] Pre-surgical visit [] Trauma [] Long length of stay [] ICU visit [] Other: Relational/Emotional Strength [] Patient feels connected with others/family/visitors/staff [] Distress [] Loneliness/isolation [] Abandonment Spirituality of Patient [x] Person of [place] [] Attends Yazidi of their [place] [x] Believes in Prayer [] Reads Bible or Moravian materials [] There are Spiritual issues to be addressed Salesperson [employer] Interventions [x] Prayer [] Active listening [] Non-anxious presence [] Spiritual/emotional support [] Crisis/trauma care [] Spiritual counseling [] Bereavement support [] Provided bereavement packet [] Provided Bible/devotional materials [] Provided toy/stuffed animal, coloring book to patient or family member [] Provided Communion [] Anointing/[place] [] Salvation [] Completed spiritual assessment [] Other: Impact on Illness or Injury [] Angry [] Fearful [] Anxious [] Often cries [] Exhaustion [] Unable to work [] Unable to attend scientologist [] Unable to walk/stand [] Unable to read [] Unable to drive [] Unable to eat/drink [] Unable to sleep [] Unable to be with family [] Patient intubated [] Other: Summary Time spent with patient 5 min
--- NOTE | 2024-04-27 11:06 | P.PN_ITS ---
Subjective 2 Subjective: Inadequate urine output Nephro is planning for another dose of Lasix today No plan for permanent dialysis catheter as of now Patient is on 2 L of oxygen Afebrile White count 15,000 Creatinine worsened to 6.8 Patient is showing mild signs of acidosis Potassium 3.8 I have asked patient to ask for time off or at least for the month of April CPK 5958, down from 10,000 Vitals/I&O/Wt Last Vital Signs Temp 97.9 F 04/27/24 08:00 Pulse 83 04/27/24 08:00 Resp 17 04/27/24 08:00 BP 152/78 04/27/24 08:00 Pulse Ox 94 04/27/24 08:00 O2 Del Method Nasal Cannula 04/27/24 07:23 O2 Flow Rate 2 04/27/24 07:23 FiO2 28 04/24/24 16:22 04/26/24 04/27/24 04/27/24 22:59 06:59 14:59 Intake Total 690 / 1090 140 / 1230 240 / 240 Balance 690 / 940 140 / 1080 240 / 240 Weight last 48 hrs Weight 94.483 kg Weight 94.347 kg Weight 89.494 kg Weight 89.1 kg Physical Exam 2 Narrative: Euvolemic GCS 15 Pleasant cough Mild rhonchi Currently on 2 L Pleasant GCS 15 Nonfocal neuroexam Pleasant cooperative S1, S2 Urinary Catheter Management: Ramirez: Cath Placed During This Visit: yes, but has since been removed by the nurse Reason for Continuing Indwelling Catheter: Acute Urinary Retention or Obstruction Urinary Catheter Date of Insertion: 04/22/24 Urinary Catheter Time of Insertion: 14:20 Date Urinary Catheter Removed: 04/23/21 Time Urinary Catheter Discontinued: 17:44 Data 04/27/24 04:27 04/27/24 04:27 Micro: Microbiology 04/25/24 23:21 Gram Stain - Final Sputum - Expectorated Sputum Sputum Culture - Preliminary A&P Assessment and plan (1) Type 2 diabetes mellitus: Qualifiers: Diabetes mellitus senior care insulin use: without intermediate card tender use Diabetes mellitus complication status: without complication Qualified Code(s): E11.9 - Type 2 diabetes mellitus without complications (2) ATN (acute tubular necrosis): (3) Septic shock: (4) Rhabdomyolysis: (5) Acute metabolic encephalopathy: (6) Pneumonia: Qualifiers: Laterality: left Lung location: upper lobe of lung Pneumonia type: due to unspecified organism Qualified Code(s): J18.9 - Pneumonia, unspecified organism (7) ICD (implantable cardioverter-defibrillator) in place: (8) HFrEF (heart failure with reduced ejection fraction): (9) Non-ischemic cardiomyopathy: (10) Alcohol use: Plan Septic shock: Resolved Community-acquired pneumonia History of alcohol use CT scan consistent with dense consolidation Resp panel negative ATN: Appreciate nephro recommendations Temporal dialysis catheter has been placed Intermittent dialysis Planning to use Lasix for 1 more day to monitor for renal recovery Nonischemic cardiomyopathy No plan for angiogram EF is improved Alcohol dependence: No signs of withdrawal Full code A-fib without RVR Continue amiodarone Anticoagulation is on hold Attestations 2 Medical Necessity Statement*: Continue medical management Diagnoses Type 2 diabetes mellitus without complication, without long-term current use of insulin E11.9 Diabetes mellitus intermediate card tender insulin use: without senior care use Diabetes mellitus complication status: without complication ATN (acute tubular necrosis) N17.0 Septic shock A41.9; R65.21 Rhabdomyolysis M62.82 Acute metabolic encephalopathy G93.41 Pneumonia of left upper lobe due to infectious organism J18.9 Laterality: left Lung location: upper lobe of lung Pneumonia type: due to unspecified organism ICD (implantable cardioverter-defibrillator) in place Z95.810 HFrEF (heart failure with reduced ejection fraction) I50.20 Non-ischemic cardiomyopathy I42.8 Alcohol use Z78.9
[2024-04-27] MEDS: acetaminophen 500 mg Tablet 1000 MG PO (12:33)
--- NOTE | 2024-04-27 13:10 | PC.NURSE ---
Patient does not want SCDs on due to hurting his legs and claims he can not sit up on the side of the bed when he wants to.
[2024-04-27] MEDS: enoxaparin 80 mg/0.8 mL Syringe SUBCUT (14:48)
--- NOTE | 2024-04-27 16:41 | P.PN_ITS ---
Subjective 2 Subjective: Feeling better. No chest pain. Vitals/I&O/Wt Last Vital Signs Temp 97.5 F L 04/27/24 16:00 Pulse 79 04/27/24 16:00 Resp 19 H 04/27/24 16:00 BP 156/81 04/27/24 16:00 Pulse Ox 93 04/27/24 16:00 O2 Del Method Room Air 04/27/24 16:00 O2 Flow Rate 2 04/27/24 15:26 FiO2 28 04/24/24 16:22 04/27/24 04/27/24 04/27/24 06:59 14:59 22:59 Intake Total 140 / 1230 240 / 240 Balance 140 / 1080 240 / 240 Weight last 48 hrs Weight 208 lb 4.8 oz Weight 208 lb Weight 197 lb 4.8 oz Physical Exam 2 Narrative: GENERAL: Patient is alert today NECK: No jugular vein distension. [] HEENT: No cyanosis. No icterus. No pallor. [] HEART: Regular S1 and S2. No murmur, rub or gallop. [] LUNGS: Clear to auscultate bilaterally. [] CENTRAL NERVOUS SYSTEM: Grossly nonfocal. Urinary Catheter Management: Ramirez: Cath Placed During This Visit: yes, but has since been removed by the nurse Reason for Continuing Indwelling Catheter: Acute Urinary Retention or Obstruction Urinary Catheter Date of Insertion: 04/22/24 Urinary Catheter Time of Insertion: 14:20 Date Urinary Catheter Removed: 04/23/21 Time Urinary Catheter Discontinued: 17:44 Data 04/28/24 04:33 04/28/24 04:33 Micro: Microbiology 04/22/24 13:38 Blood Culture - Final Blood NO GROWTH AFTER 5 DAYS 04/22/24 13:38 Blood Culture - Final Blood NO GROWTH AFTER 5 DAYS A&P Assessment and plan (1) Implantable cardioverter-defibrillator (ICD) discharge: Patient is stable since being in hospital. (2) Non-ischemic cardiomyopathy: Continue current medications (3) Heart failure with improved ejection fraction (HFimpEF): Currently compensated (4) Atrial fibrillation: Continue PO amiodarone. Anticoagulation if able. Qualifiers: Atrial fibrillation type: persistent (not longstanding) Qualified Code(s): I48.19 - Other persistent atrial fibrillation (5) Type 2 diabetes mellitus: May continue on the current management. Qualifiers: Diabetes mellitus custodial insulin use: without terminal press operator use Diabetes mellitus complication status: without complication Qualified Code(s): E11.9 - Type 2 diabetes mellitus without complications (6) Pneumonia: Antibiotic therapy per primary team Qualifiers: Laterality: left Lung location: upper lobe of lung Pneumonia type: due to unspecified organism Qualified Code(s): J18.9 - Pneumonia, unspecified organism (7) Acute renal failure: Nephrology on board Qualifiers: Acute renal failure type: unspecified Qualified Code(s): N17.9 - Acute kidney failure, unspecified Attestations 2 Medical Necessity Statement*: Care expected to cross 2 midnights. Coding Level of Care Code Acute Code for [facility] Fwd Diagnoses Implantable cardioverter-defibrillator (ICD) discharge Z45.02 Non-ischemic cardiomyopathy I42.8 Heart failure with improved ejection fraction (HFimpEF) I50.32 Persistent atrial fibrillation I48.19 Atrial fibrillation type: persistent (not longstanding) Type 2 diabetes mellitus without complication, without long-term current use of insulin E11.9 Diabetes mellitus custodial insulin use: without terminal press operator use Diabetes mellitus complication status: without complication Pneumonia of left upper lobe due to infectious organism J18.9 Laterality: left Lung location: upper lobe of lung Pneumonia type: due to unspecified organism Acute renal failure, unspecified acute renal failure type N17.9 Acute renal failure type: unspecified
--- NOTE | 2024-04-27 16:43 | PC.NURSE ---
Notified Dr. Pettit of patient having a lot of wheezing. Dr. Pettit to put an order in for budesonide in.
[2024-04-27] MEDS: budesonide 0.5 mg/2 mL Neb INHALATION (20:39)
[2024-04-27] MEDS: trazodone 50 mg Tablet 25 MG PO (21:35)
--- NOTE | 2024-04-27 23:51 | PC.RESP ---
Patient placed placed on bipap at this time for shortness of breath and low spo2 his lung sounds are coarse crackles. Patient is on 16/8 and 40% at this time and seems to be more comfortable. Patient spo2 98% and his respirations are 16. Patient resting at this time.
[2024-04-28] VITALS (15 sets, daily range): BP systolic 128–161; BP diastolic 39–85; PULSE 69–91; RESP 16–24; TEMP 36.4–36.6; O2SAT 93–98
[2024-04-28] MEDS: cefepime 1,000 MG in sodium chloride 0.9% (plus) 50 ML 100 MG IV (01:39)
[2024-04-28] MEDS: ipratropium-albuterol 3 mL Neb INHALATION ×4 (04:43→21:03)
[2024-04-28 05:28] LABS: Hematocrit 35.9 % (37-53); Mean Corpuscular HGB Conc 34.8 g/dL (30-55); Mean Corpuscular Hemoglobin 33.5 pg (27-33); Mean Corpuscular Volume 96.2 fl (82-101); Mean Platelet Volume 10.4 fL (7.4-10.4); Platelet Count 302 10^3/cmm (157-399); Red Blood Count 3.73 10^6/uL (3.85-5.65); Red Cell Distribution Width 13.2 % (12.1-15.1); White Blood Count 15.26 10^3/uL (3.29-11.43)
[2024-04-28 06:00] LABS: Alanine Aminotransferase 311 U/L (0-41); Albumin Level 2.6 g/dL (3.5-5.2); Alkaline Phosphatase 85 U/L (40-130); Aspartate Amino Transferase 254 U/L (0-40); Calcium 7.5 mg/dL (8.5-10.5); Carbon Dioxide 17 mmol/L (22-29); Chloride 89 mmol/L (98-107); Creatinine Clr Calc Pharmacy 10.6216; Glomerular Filtration Rate 6.3 mL/min (90-130); Glucose 89 mg/dL (65-115); Magnesium 2.5 mg/dL (1.7-2.3); Osmolality Calculated 289 mOsm/kg (285-295); Phosphorus 7.4 mg/dL (2.5-4.5); Sodium 125 mmol/L (136-145); Total Bilirubin 0.4 mg/dL (0.15-1.2); Total Protein 5.6 g/dL (6.6-8.7)
[2024-04-28 06:23] LABS: Slide Review Slide Review Perform
[2024-04-28] MEDS: pantoprazole 40 mg SDV IVP ×2 (06:23→19:14)
[2024-04-28 06:24] LABS: Absolute Eosinophils 0.3 10^3/cmm (0.0-0.7); Absolute Segmented Neutrophil 11.9 10/cmm (1.6-7.1); Eosinophils 2 %; Lymphocytes 9 %; Monocytes Absolute 1.1 10^3/cmm (0.1-0.6); Platelet Estimate Normal (Normal); Segmented Neutrophils 78 %; Total Cells Counted 100 (0-100)
[2024-04-28 06:39] LABS: Blood Urea Nitrogen 96 mg/dL (6-20)
[2024-04-28 06:40] LABS: Creatine Phosphokinase 5039 U/L (39-308)
--- NOTE | 2024-04-28 07:09 | P.PN_ITS ---
Subjective 2 Subjective: weak, sob, needed bipap overnight. poor appetite. + nausea. no jackson or cp Medications: Reviewed: Yes Medication Review Details: Current Medications Acetaminophen (Acetaminophen 500 Mg Tablet) 1,000 mg PO Q6H PRN PRN Reason: fever Last Admin: 04/27/24 12:33 Dose: 1,000 mg Albuterol/Ipratropium (Ipratropium-Albuterol 3 Ml Neb) 3 ml INHALATION Q4H.RESPIRATORY ANAY Last Admin: 04/28/24 04:43 Dose: 3 ml Amiodarone HCl (Amiodarone 200 Mg Tablet) 400 mg PO BID [facility] Last Admin: 04/27/24 18:26 Dose: 400 mg Amlodipine Besylate (Amlodipine 10 Mg Tablet) 10 mg PO DAILY [facility] Last Admin: 04/27/24 09:20 Dose: 10 mg Aspirin (Aspirin 81 Mg Ec Tablet) 81 mg PO DAILY [facility] Last Admin: 04/25/24 08:11 Dose: 81 mg Budesonide (Budesonide 0.5 Mg/2 Ml Neb) 0.5 mg INHALATION BID.RESPIRATORY ANAY Last Admin: 04/27/24 20:39 Dose: 0.5 mg Enoxaparin Sodium (Enoxaparin 80 Mg/0.8 Ml Syringe) 80 mg SUBCUT Q24H [facility] Last Admin: 04/27/24 14:48 Dose: 80 mg Folic Acid (Folic Acid 1 Mg Tablet) 1 mg PO DAILY [facility] Last Admin: 04/27/24 09:21 Dose: 1 mg Furosemide (Furosemide 10 Mg/Ml Sdv 10ml) 60 mg IVP Q12H [facility] Last Admin: 04/27/24 21:14 Dose: 60 mg Hydralazine HCl (Hydralazine 25 Mg Tablet) 25 mg PO BID [facility] Last Admin: 04/27/24 18:26 Dose: 25 mg Hydralazine HCl (Hydralazine 20 Mg/Ml Inj 1 Ml) 5 mg IVP Q4H PRN PRN Reason: bp>180/100 Cefepime HCl 1,000 mg/ Sodium (Chloride) 50 mls @ 100 mls/hr IV Q12H [facility]; Protocol Last Infusion: 04/28/24 02:09 Dose: Infused Lanolin (Lanolin Oint 7 Gm) 1 applic TOPICAL PRN PRN PRN Reason: DRYNESS Last Admin: 04/25/24 19:31 Dose: 1 applic Lorazepam (Lorazepam 2 Mg Tablet) 2 mg PO Q4H PRN; Protocol PRN Reason: WITHDRAWAL Lorazepam (Lorazepam 2 Mg/Ml Inj 10 Ml Mdv) 2 mg IM Q4H PRN; Protocol PRN Reason: ALCOHOL WITHDRAWAL Lorazepam (Lorazepam 2 Mg/Ml Inj 10 Ml Mdv) 2 mg IVP PRN PRN; Protocol PRN Reason: WITHDRAWAL Last Admin: 04/24/24 03:17 Dose: 2 mg Metoprolol Tartrate (Metoprolol Tartrate 25 Mg Tablet) 25 mg PO BID@0900,2100 [facility] Last Admin: 04/27/24 21:15 Dose: 25 mg Multivitamins Therapeutic (Multivitamin Therapeutic Tablet) 1 tab PO DAILY [facility] Last Admin: 04/27/24 09:22 Dose: 1 tab Ondansetron HCl (Ondansetron 2 Mg/Ml Sdv 2 Ml) 4 mg IVP Q6H PRN PRN Reason: NAUSEA AND VOMITING Pantoprazole Sodium (Pantoprazole 40 Mg Sdv) 40 mg IVP Q12H [facility] Last Admin: 04/28/24 06:23 Dose: 40 mg Senna/Docusate Sodium (Sennosides-Docusate Tablet) 2 tab PO BID [facility] Last Admin: 04/27/24 18:27 Dose: 2 tab Sevelamer Carbonate (Sevelamer 800 Mg Tablet) 800 mg PO TID [facility] Last Admin: 04/27/24 21:15 Dose: 800 mg Thiamine Mononitrate (Thiamine 100 Mg Tablet) 100 mg PO DAILY [facility] Last Admin: 04/27/24 09:23 Dose: 100 mg Vitals/I&O/Wt Last Vital Signs Temp 97.5 F L 04/28/24 04:00 Pulse 74 04/28/24 06:49 Resp 18 04/28/24 04:49 BP 151/74 04/28/24 04:00 Pulse Ox 98 04/28/24 04:49 O2 Del Method Nasal Cannula 04/28/24 04:49 O2 Flow Rate 4 04/28/24 04:49 FiO2 40 04/27/24 23:25 04/27/24 04/28/24 04/28/24 22:59 06:59 14:59 Intake Total 290 / 630 290 / 920 Output Total 400 / 400 250 / 650 Balance -110 / 230 40 / 270 Weight last 48 hrs Weight 95.85 kg Weight 94.483 kg Physical Exam 2 Narrative: lying in bed, comfortable in [place] 02. vss heent- nc/at lungs b/l wheezes, heart irreg+HSM abd soft, nt, nd, + bs right groin dialysis catheter ext + edema improved neuro- awake, alert, o x 3. moves all extremities Urinary Catheter Management: Ramirez: Cath Placed During This Visit: yes, but has since been removed by the nurse Reason for Continuing Indwelling Catheter: Other Urinary Catheter Date of Insertion: 04/22/24 Urinary Catheter Time of Insertion: 14:20 Date Urinary Catheter Removed: 04/23/21 Time Urinary Catheter Discontinued: 17:44 Data 04/28/24 04:33 04/28/24 04:33 Micro: Microbiology 04/22/24 13:38 Blood Culture - Final Blood NO GROWTH AFTER 5 DAYS 04/22/24 13:38 Blood Culture - Final Blood NO GROWTH AFTER 5 DAYS A&P Assessment and plan (1) LISSETTE (acute kidney injury): 59 yr old man 1. pna- renal dose abx. keep trough under 19 2. NSTEMI 3. LISSETTE - urinalysis noted- w/ wbc, rbc, granular casts- concern for ATN elevated ur na of 53 -no hydronephrosis on renal us s/p dialysis catheter placement yesterday and initiation of dialysis s/p HD x 2 repeat [id number] - amy + 1:320- same as in 2020 -await anca -hep profile noted as sob, hyponatremic, and more SOB. even though urinating- will dialyze today and tomorrow, then remove dialysis catheter and monitor for renal recovery 4. leukocytosis persists. slowly improved= wbc is 15. he is off of steroids -cont abx per hospitalist 5. hyponatremia- elevated cortisol, normal tsh. elevated ur na 53 -likely from lissette and pna monitor w/ dialysis 6. inc LFT's- likely shocked liver, q from rhabdomyolysis remains elevated in 200's 7. elevated pth= will give a vit d analouge phos improving 8. a fib controlled -hold eliquis please ensure all meds are dosed for GFR <10 seen and examined w/ RN- telehealth visit Plan see above Attestations 2 Medical Necessity Statement*: lissette, hyponatremia, sob, confused Time Spent in Patient Care: Greater than 35 minutes Coding Level of Care Code Acute Code for Chg Fwd Diagnoses LISSETTE (acute kidney injury) N17.9
[2024-04-28] MEDS: budesonide 0.5 mg/2 mL Neb INHALATION ×2 (08:19→21:03)
[2024-04-28] MEDS: sevelamer 800 mg Tablet PO ×3 (09:36→20:12)
[2024-04-28] MEDS: sennosides-docusate Tablet 2 TAB PO ×2 (09:36→17:33)
[2024-04-28] MEDS: amiodarone 200 mg Tablet 400 MG PO ×2 (09:36→17:34)
[2024-04-28] MEDS: aspirin 81 mg EC Tablet PO (09:36)
[2024-04-28] MEDS: folic acid 1 mg Tablet PO (09:37)
[2024-04-28] MEDS: amlodipine 10 mg Tablet PO (09:37)
[2024-04-28] MEDS: multivitamin therapeutic Tablet 1 TAB PO (09:37)
[2024-04-28] MEDS: hyDRALAzine 25 mg Tablet PO ×2 (09:37→17:34)
[2024-04-28] MEDS: metoprolol tartrate 25 mg Tablet PO ×2 (09:40→20:12)
[2024-04-28] MEDS: thiamine 100 mg Tablet PO (09:43)
--- NOTE | 2024-04-28 10:47 | PM.PN ---
Subjective Subjective: Overnight events noted Patient became short of breath, required Lasix Required BiPAP as well Vitals/I&O/Wt Last Vital Signs Temp 97.7 F 04/28/24 07:20 Pulse 76 04/28/24 08:29 Resp 20 H 04/28/24 08:19 BP 142/77 04/28/24 07:20 Pulse Ox 95 04/28/24 08:19 O2 Del Method Nasal Cannula 04/28/24 08:19 O2 Flow Rate 4 04/28/24 08:19 FiO2 40 04/27/24 23:25 04/27/24 04/28/24 04/28/24 22:59 06:59 14:59 Intake Total 290 / 630 290 / 920 120 / 120 Output Total 400 / 400 250 / 650 Balance -110 / 230 40 / 270 120 / 120 Weight last 48 hrs Weight 95.85 kg Weight 94.483 kg Physical Exam Narrative: Patient does not look fluid overloaded clinically Mild rhonchi noted on lung auscultation Currently on 4 L nasal cannula Hemodynamic stable GCS 15 Eating breakfast Nonfocal neuroexam Abdomen soft Ramirez catheter with 75 mL urine Urinary Catheter Management: Ramirez: Cath Placed During This Visit: yes, but has since been removed by the nurse Reason for Continuing Indwelling Catheter: Other Urinary Catheter Date of Insertion: 04/22/24 Urinary Catheter Time of Insertion: 14:20 Date Urinary Catheter Removed: 04/23/21 Time Urinary Catheter Discontinued: 17:44 Data 04/28/24 04:33 04/28/24 04:33 Micro: Microbiology 04/22/24 13:38 Blood Culture - Final Blood NO GROWTH AFTER 5 DAYS 04/22/24 13:38 Blood Culture - Final Blood NO GROWTH AFTER 5 DAYS A&P Assessment and plan (1) Alcohol use: (2) Non-ischemic cardiomyopathy: (3) ICD (implantable cardioverter-defibrillator) in place: (4) Atrial fibrillation: Qualifiers: Atrial fibrillation type: persistent (not longstanding) Qualified Code(s): I48.19 - Other persistent atrial fibrillation (5) Type 2 diabetes mellitus: Qualifiers: Diabetes mellitus truck sales representative insulin use: without truck sales representative use Diabetes mellitus complication status: without complication Qualified Code(s): E11.9 - Type 2 diabetes mellitus without complications (6) ATN (acute tubular necrosis): (7) Septic shock: (8) Rhabdomyolysis: (9) Acute metabolic encephalopathy: (10) Pneumonia: Qualifiers: Laterality: left Lung location: upper lobe of lung Pneumonia type: due to unspecified organism Qualified Code(s): J18.9 - Pneumonia, unspecified organism (11) Tobacco use: Plan Septic shock: Resolved Cultures negative Discontinue IV antibiotics Changed to Augmentin Community-acquired pneumonia: Discontinue IV antibiotics and switch to Augmentin 04/28 Afebrile, cultures negative Acute hypoxia currently requiring 4 L ATN: Plan for dialysis today Will touch base with nephrology if there is plan to transition to primary dialysis catheter At this point patient has shown some response to Lasix, he is not oliguric today Appreciate nephro recommendations Plan for dialysis Potassium 4.0, Metabolic acidosis related to renal failure, start p.o. bicarb Nonischemic cardiomyopathy No plan for angiogram AICD in place Full code Continue dysphagia diet, advance as per speech therapy recommendations A-fib without RVR currently on once daily regimen of Lovenox Disposition: Home once kidney function improves Attestations Medical Necessity Statement*: Continue medical management Diagnoses Alcohol use Z78.9 Non-ischemic cardiomyopathy I42.8 ICD (implantable cardioverter-defibrillator) in place Z95.810 Persistent atrial fibrillation I48.19 Atrial fibrillation type: persistent (not longstanding) Type 2 diabetes mellitus without complication, without long-term current use of insulin E11.9 Diabetes mellitus truck sales representative insulin use: without truck sales representative use Diabetes mellitus complication status: without complication ATN (acute tubular necrosis) N17.0 Septic shock A41.9; R65.21 Rhabdomyolysis M62.82 Acute metabolic encephalopathy G93.41 Pneumonia of left upper lobe due to infectious organism J18.9 Laterality: left Lung location: upper lobe of lung Pneumonia type: due to unspecified organism Tobacco use Z72.0
[2024-04-28] MEDS: heparin, porcine 1,000 unit/mL INJ 10 mL 1000 UNIT IV (12:32)
[2024-04-28] MEDS: sodium bicarbonate 650 mg Tablet PO ×2 (16:17→20:12)
[2024-04-28] MEDS: amoxicillin-clav 875-125 mg Tablet 1 TAB PO (17:35)
--- NOTE | 2024-04-28 18:53 | P.PN_ITS ---
Subjective 2 Subjective: Patient is more awake and alert. no chest pain. Vitals/I&O/Wt Last Vital Signs Temp 97.7 F 04/28/24 16:06 Pulse 73 04/28/24 16:06 Resp 16 04/28/24 16:06 BP 139/79 04/28/24 16:06 Pulse Ox 95 04/28/24 16:06 O2 Del Method Nasal Cannula 04/28/24 16:06 O2 Flow Rate 3 04/28/24 16:06 FiO2 40 04/27/24 23:25 04/28/24 04/28/24 04/28/24 06:59 14:59 22:59 Intake Total 290 / 920 360 / 360 620 / 980 Output Total 250 / 650 2507 / 2507 Balance 40 / 270 360 / 360 -1887 / -1527 Weight last 48 hrs Weight 206 lb 1.6 oz Weight 211 lb 5 oz Weight 208 lb 4.8 oz Physical Exam 2 Narrative: GENERAL: Patient is alert today NECK: No jugular vein distension. [] HEENT: No cyanosis. No icterus. No pallor. [] HEART: Regular S1 and S2. No murmur, rub or gallop. [] LUNGS: Clear to auscultate bilaterally. [] CENTRAL NERVOUS SYSTEM: Grossly nonfocal. Urinary Catheter Management: Ramirez: Cath Placed During This Visit: yes, but has since been removed by the nurse Reason for Continuing Indwelling Catheter: Other Urinary Catheter Date of Insertion: 04/22/24 Urinary Catheter Time of Insertion: 14:20 Date Urinary Catheter Removed: 04/23/21 Time Urinary Catheter Discontinued: 17:44 Data 04/29/24 04:34 04/29/24 06:56 A&P Assessment and plan (1) Implantable cardioverter-defibrillator (ICD) discharge: (2) Non-ischemic cardiomyopathy: (3) Heart failure with improved ejection fraction (HFimpEF): (4) Atrial fibrillation: Qualifiers: Atrial fibrillation type: persistent (not longstanding) Qualified Code(s): I48.19 - Other persistent atrial fibrillation (5) Type 2 diabetes mellitus: Qualifiers: Diabetes mellitus care home insulin use: without oysterman use Diabetes mellitus complication status: without complication Qualified Code(s): E11.9 - Type 2 diabetes mellitus without complications (6) Pneumonia: Qualifiers: Laterality: left Lung location: upper lobe of lung Pneumonia type: due to unspecified organism Qualified Code(s): J18.9 - Pneumonia, unspecified organism (7) Acute renal failure: Qualifiers: Acute renal failure type: unspecified Qualified Code(s): N17.9 - Acute kidney failure, unspecified Plan Patient is overall stable from cardiac standpoint. Heart rates are controlled. We will continue with current medications. No more ICD shocks. Thank you for involving us with care of this patient. We will continue to follow. Please call with questions. Attestations 2 Medical Necessity Statement*: Care expected to cross 2 midnights. Coding Level of Care Code Acute Code for [facility] Fwd Diagnoses Implantable cardioverter-defibrillator (ICD) discharge Z45.02 Non-ischemic cardiomyopathy I42.8 Heart failure with improved ejection fraction (HFimpEF) I50.32 Persistent atrial fibrillation I48.19 Atrial fibrillation type: persistent (not longstanding) Type 2 diabetes mellitus without complication, without long-term current use of insulin E11.9 Diabetes mellitus oysterman insulin use: without care home use Diabetes mellitus complication status: without complication Pneumonia of left upper lobe due to infectious organism J18.9 Laterality: left Lung location: upper lobe of lung Pneumonia type: due to unspecified organism Acute renal failure, unspecified acute renal failure type N17.9 Acute renal failure type: unspecified
[2024-04-28] MEDS: FUROsemide 10 mg/mL SDV 10mL 60 MG IVP (20:12)
[2024-04-29] VITALS (15 sets, daily range): BP systolic 127–149; BP diastolic 64–78; PULSE 0–93; RESP 16–19; TEMP 36.4–36.8; O2SAT 90–96
[2024-04-29] MEDS: ipratropium-albuterol 3 mL Neb INHALATION ×6 (00:25→20:32)
[2024-04-29 05:27] LABS: Basophils # 0.1 10^3/uL (0.0-0.1); Basophils % 0.6 %; Eosinophils # 0.3 10^3/uL (0.0-0.8); Eosinophils % 1.9 %; Hematocrit 35.8 % (37-53); Lymphocytes # 1.4 10^3/uL (0.8-4.8); Lymphocytes % 8.9 %; Mean Corpuscular HGB Conc 34.4 g/dL (30-55); Mean Corpuscular Hemoglobin 33.2 pg (27-33); Mean Corpuscular Volume 96.8 fl (82-101); Mean Platelet Volume 11.7 fL (7.4-10.4); Monocytes # 0.8 10^3/uL (0.2-0.9); Neutrophils # 11.74 10^3/uL (1.8-7.7); Neutrophils % 73.7 %; Nucleated Red Blood Cells % 0 %; Platelet Count 230 10^3/cmm (157-399); Red Cell Distribution Width 13.3 % (12.1-15.1); White Blood Count 15.94 10^3/uL (3.29-11.43)
[2024-04-29 06:11] LABS: Slide Review Slide Review Perform
[2024-04-29 07:23] LABS: Alanine Aminotransferase 239 U/L (0-41); Albumin Level 2.5 g/dL (3.5-5.2); Alkaline Phosphatase 86 U/L (40-130); Anion Gap 22.2 (5-19); Aspartate Amino Transferase 132 U/L (0-40); Calcium 7.2 mg/dL (8.5-10.5); Carbon Dioxide 19 mmol/L (22-29); Chloride 90 mmol/L (98-107); Creatinine Clr Calc Pharmacy 10.9836; Globulin 3.1 g/dL (1.3-4.6); Glomerular Filtration Rate 6.6 mL/min (90-130); Glucose 96 mg/dL (65-115); Magnesium 2.3 mg/dL (1.7-2.3); Osmolality Calculated 288 mOsm/kg (285-295); Phosphorus 6.2 mg/dL (2.5-4.5); Potassium 4.2 mmol/L (3.5-5.1); Sodium 127 mmol/L (136-145); Total Bilirubin 0.4 mg/dL (0.15-1.2); Total Protein 5.6 g/dL (6.6-8.7)
[2024-04-29 07:31] LABS: Blood Urea Nitrogen 81 mg/dL (6-20)
[2024-04-29] MEDS: amiodarone 200 mg Tablet 400 MG PO ×2 (08:09→18:40)
[2024-04-29] MEDS: metoprolol tartrate 25 mg Tablet PO ×2 (08:10→20:45)
[2024-04-29] MEDS: sevelamer 800 mg Tablet PO (08:10)
[2024-04-29] MEDS: multivitamin therapeutic Tablet 1 TAB PO (08:10)
[2024-04-29] MEDS: thiamine 100 mg Tablet PO (08:10)
[2024-04-29] MEDS: pantoprazole 40 mg SDV IVP ×2 (08:10→18:40)
[2024-04-29] MEDS: amlodipine 10 mg Tablet PO (08:10)
[2024-04-29] MEDS: sodium bicarbonate 650 mg Tablet PO (08:10)
[2024-04-29] MEDS: aspirin 81 mg EC Tablet PO (08:10)
[2024-04-29] MEDS: hyDRALAzine 25 mg Tablet PO ×2 (08:10→18:41)
[2024-04-29] MEDS: amoxicillin-clav 875-125 mg Tablet 1 TAB PO ×2 (08:10→18:40)
[2024-04-29] MEDS: sennosides-docusate Tablet 2 TAB PO ×2 (08:10→18:41)
[2024-04-29] MEDS: FUROsemide 10 mg/mL SDV 10mL 60 MG IVP (08:10)
[2024-04-29] MEDS: folic acid 1 mg Tablet PO (08:10)
[2024-04-29] MEDS: budesonide 0.5 mg/2 mL Neb INHALATION ×2 (08:38→20:33)
--- NOTE | 2024-04-29 10:51 | PM.PN ---
Subjective Subjective: feels better. no n/v/f/c/jackson/d/sob/itching Medications: Reviewed: Yes Medication Review Details: Current Medications Acetaminophen (Acetaminophen 500 Mg Tablet) 1,000 mg PO Q6H PRN PRN Reason: fever Last Admin: 04/27/24 12:33 Dose: 1,000 mg Albuterol/Ipratropium (Ipratropium-Albuterol 3 Ml Neb) 3 ml INHALATION Q4H.RESPIRATORY ANAY Last Admin: 04/29/24 08:37 Dose: 3 ml Amiodarone HCl (Amiodarone 200 Mg Tablet) 400 mg PO BID [facility]NAY Last Admin: 04/29/24 08:09 Dose: 400 mg Amlodipine Besylate (Amlodipine 10 Mg Tablet) 10 mg PO DAILY [facility]NA[facility] Last Admin: 04/29/24 08:10 Dose: 10 mg Amoxicillin/Clavulanate Potassium (Amoxicillin-Clav 875-125 Mg Tablet) 1 tab PO BID ANAY; Protocol Last Admin: 04/29/24 08:10 Dose: 1 tab Aspirin (Aspirin 81 Mg Ec Tablet) 81 mg PO DAILY [facility]NAY Last Admin: 04/29/24 08:10 Dose: 81 mg Budesonide (Budesonide 0.5 Mg/2 Ml Neb) 0.5 mg INHALATION BID.RESPIRATORY ANAY Last Admin: 04/29/24 08:38 Dose: 0.5 mg Enoxaparin Sodium (Enoxaparin 80 Mg/0.8 Ml Syringe) 80 mg SUBCUT Q24H [facility] Last Admin: 04/27/24 14:48 Dose: 80 mg Folic Acid (Folic Acid 1 Mg Tablet) 1 mg PO DAILY [facility]NA[facility] Last Admin: 04/29/24 08:10 Dose: 1 mg Furosemide (Furosemide 10 Mg/Ml Sdv 10ml) 60 mg IVP Q12H [facility] Last Admin: 04/29/24 08:10 Dose: 60 mg Hydralazine HCl (Hydralazine 25 Mg Tablet) 25 mg PO BID ANAY Last Admin: 04/29/24 08:10 Dose: 25 mg Hydralazine HCl (Hydralazine 20 Mg/Ml Inj 1 Ml) 5 mg IVP Q4H PRN PRN Reason: bp>180/100 Lanolin (Lanolin Oint 7 Gm) 1 applic TOPICAL PRN PRN PRN Reason: DRYNESS Last Admin: 04/25/24 19:31 Dose: 1 applic Lorazepam (Lorazepam 2 Mg Tablet) 2 mg PO Q4H PRN; Protocol PRN Reason: WITHDRAWAL Lorazepam (Lorazepam 2 Mg/Ml Inj 10 Ml Mdv) 2 mg IM Q4H PRN; Protocol PRN Reason: ALCOHOL WITHDRAWAL Lorazepam (Lorazepam 2 Mg/Ml Inj 10 Ml Mdv) 2 mg IVP PRN PRN; Protocol PRN Reason: WITHDRAWAL Last Admin: 04/24/24 03:17 Dose: 2 mg Metoprolol Tartrate (Metoprolol Tartrate 25 Mg Tablet) 25 mg PO BID@0900,2100 [facility] Last Admin: 04/29/24 08:10 Dose: 25 mg Multivitamins Therapeutic (Multivitamin Therapeutic Tablet) 1 tab PO DAILY [facility] Last Admin: 04/29/24 08:10 Dose: 1 tab Ondansetron HCl (Ondansetron 2 Mg/Ml Sdv 2 Ml) 4 mg IVP Q6H PRN PRN Reason: NAUSEA AND VOMITING Pantoprazole Sodium (Pantoprazole 40 Mg Sdv) 40 mg IVP Q12H [facility] Last Admin: 04/29/24 08:10 Dose: 40 mg Senna/Docusate Sodium (Sennosides-Docusate Tablet) 2 tab PO BID [facility] Last Admin: 04/29/24 08:10 Dose: 2 tab Sevelamer Carbonate (Sevelamer 800 Mg Tablet) 800 mg PO TID [facility] Last Admin: 04/29/24 08:10 Dose: 800 mg Sodium Bicarbonate (Sodium Bicarbonate 650 Mg Tablet) 650 mg PO TID [facility] Last Admin: 04/29/24 08:10 Dose: 650 mg Thiamine Mononitrate (Thiamine 100 Mg Tablet) 100 mg PO DAILY [facility] Last Admin: 04/29/24 08:10 Dose: 100 mg Vitals/I&O/Wt Last Vital Signs Temp 97.6 F 04/29/24 07:57 Pulse 79 04/29/24 08:39 Resp 18 04/29/24 08:39 BP 135/69 04/29/24 07:57 Pulse Ox 92 04/29/24 08:39 O2 Del Method Room Air 04/29/24 08:39 O2 Flow Rate 3 04/29/24 04:38 FiO2 40 04/27/24 23:25 04/28/24 04/29/24 04/29/24 22:59 06:59 14:59 Intake Total 620 / 980 240 / 1220 240 / 240 Output Total 2507 / 2507 750 / 750 Balance -1887 / -1527 240 / -1287 -510 / -510 Weight last 48 hrs Weight 95.527 kg Weight 93.485 kg Weight 95.85 kg Physical Exam Narrative: lying in bed, comfortable Room air. vss heent- nc/at lungs b/l wheezes, heart irreg+HSM abd soft, nt, nd, + bs right groin dialysis catheter ext + edema improved neuro- awake, alert, o x 3. moves all extremities Urinary Catheter Management: Ramirez: Cath Placed During This Visit: yes, but has since been removed by the nurse Reason for Continuing Indwelling Catheter: Other Urinary Catheter Date of Insertion: 04/22/24 Urinary Catheter Time of Insertion: 14:20 Date Urinary Catheter Removed: 04/23/21 Time Urinary Catheter Discontinued: 17:44 Data 04/29/24 04:34 04/29/24 06:56 Micro: Microbiology 04/25/24 23:21 Gram Stain - Final Sputum - Expectorated Sputum Sputum Culture - Preliminary Yeast species A&P Assessment and plan (1) LISSETTE (acute kidney injury): 59 yr old man 1. pna- renal dose abx. keep trough under 19 2. NSTEMI 3. LISSETTE - urinalysis noted- w/ wbc, rbc, granular casts- concern for ATN elevated ur na of 53 -no hydronephrosis on renal us - s/p HD x 3- catheter did not work well - remains oliguric repeat CPK 5039- repeat today and tomorrow - amy + 1:320- same as in 2020 -await anca -hep profile noted -monitor for further HD needs 3b. wheezing- maybe COPD vs pna- hold lasix 4. leukocytosis persists. slowly improved= wbc is 15. he is off of steroids -cont abx per hospitalist 5. hyponatremia- elevated cortisol, normal tsh. elevated ur na 53 -likely from lissette and pna monitor w/ dialysis 6. inc LFT's- likely shocked liver, q from rhabdomyolysis remains elevated in 200's 7. elevated pth= will give a vit d analouge phos improving 8. a fib controlled -hold eliquis please ensure all meds are dosed for GFR <10 seen and examined w/ RN- telehealth visit Plan see above Attestations Medical Necessity Statement*: lissette, pna, hyponatremia Time Spent in Patient Care: Greater than 35 minutes Coding Level of Care Code Acute Code for g Fwd Diagnoses LISSETTE (acute kidney injury) N17.9
--- NOTE | 2024-04-29 10:55 | PM.PN ---
Subjective Subjective: Patient is stating that after dialysis yesterday he felt better his shortness of breath is improved He is able to lay flat now He had a bowel movement today Able to eat I did inform him that I have requested Dr. Macdonald for another temporary dialysis catheter placement because the old is troubleshooting Vitals/I&O/Wt Last Vital Signs Temp 97.6 F 04/29/24 07:57 Pulse 79 04/29/24 08:39 Resp 18 04/29/24 08:39 BP 135/69 04/29/24 07:57 Pulse Ox 92 04/29/24 08:39 O2 Del Method Room Air 04/29/24 08:39 O2 Flow Rate 3 04/29/24 04:38 FiO2 40 04/27/24 23:25 04/28/24 04/29/24 04/29/24 22:59 06:59 14:59 Intake Total 620 / 980 240 / 1220 240 / 240 Output Total 2507 / 2507 750 / 750 Balance -1887 / -1527 240 / -1287 -510 / -510 Weight last 48 hrs Weight 95.527 kg Weight 93.485 kg Weight 95.85 kg Physical Exam Narrative: Euvolemic GCS 15 Currently on room air Pleasant cough Hemodynamically stable Labored flat No active wheezing crackles old rhonchi Wounds on the face healing well Patient is awake and alert Nonfocal neuroexam Urinary Catheter Management: Ramirez: Cath Placed During This Visit: yes, but has since been removed by the nurse Reason for Continuing Indwelling Catheter: Other Urinary Catheter Date of Insertion: 04/22/24 Urinary Catheter Time of Insertion: 14:20 Date Urinary Catheter Removed: 04/23/21 Time Urinary Catheter Discontinued: 17:44 Data 04/29/24 04:34 04/29/24 06:56 Micro: Microbiology 04/25/24 23:21 Gram Stain - Final Sputum - Expectorated Sputum Sputum Culture - Preliminary Yeast species A&P Assessment and plan (1) Alcohol use: (2) Heart failure with improved ejection fraction (HFimpEF): (3) Non-ischemic cardiomyopathy: (4) Type 2 diabetes mellitus: Qualifiers: Diabetes mellitus prison insulin use: without middle or intermediate school principal use Diabetes mellitus complication status: without complication Qualified Code(s): E11.9 - Type 2 diabetes mellitus without complications (5) ATN (acute tubular necrosis): (6) Septic shock: (7) Rhabdomyolysis: (8) Acute metabolic encephalopathy: (9) Pneumonia: Qualifiers: Laterality: left Lung location: upper lobe of lung Pneumonia type: due to unspecified organism Qualified Code(s): J18.9 - Pneumonia, unspecified organism (10) Tobacco use: Plan Septic shock resolved: Change IV antibiotics to Augmentin on 04/28 Patient afebrile Not requiring oxygen ATN: Requested Dr. Macdonald for temporary dialysis catheter placement The previous temporary catheter is troubleshooting Metabolic acidosis: Currently on p.o. bicarb tablet No sign of alcohol withdrawal Hypertension: Well-controlled A-fib without RVR Eliquis on hold Patient was on therapeutic Lovenox which was put on hold yesterday Continue DuoNeb treatment Cardiac diet will be changed to renal Attestations Medical Necessity Statement*: Continue medical management Diagnoses Alcohol use Z78.9 Heart failure with improved ejection fraction (HFimpEF) I50.32 Non-ischemic cardiomyopathy I42.8 Type 2 diabetes mellitus without complication, without long-term current use of insulin E11.9 Diabetes mellitus prison insulin use: without middle or intermediate school principal use Diabetes mellitus complication status: without complication ATN (acute tubular necrosis) N17.0 Septic shock A41.9; R65.21 Rhabdomyolysis M62.82 Acute metabolic encephalopathy G93.41 Pneumonia of left upper lobe due to infectious organism J18.9 Laterality: left Lung location: upper lobe of lung Pneumonia type: due to unspecified organism Tobacco use Z72.0
[2024-04-29 13:10] LABS: Creatine Phosphokinase 1740 U/L (39-308)
[2024-04-30] VITALS (14 sets, daily range): BP systolic 120–148; BP diastolic 72–84; PULSE 75–95; RESP 15–20; TEMP 36.4–36.8; O2SAT 91–94
[2024-04-30] MEDS: ipratropium-albuterol 3 mL Neb INHALATION ×6 (00:31→20:25)
[2024-04-30 01:36] LABS: ANCA Screen NEGATIVE (NEGATIVE)
[2024-04-30] MEDS: pantoprazole 40 mg SDV IVP ×2 (06:00→18:18)
[2024-04-30 06:07] LABS: Basophils # 0.1 10^3/uL (0.0-0.1); Basophils % 0.5 %; Eosinophils # 0.5 10^3/uL (0.0-0.8); Eosinophils % 2.9 %; Hematocrit 33.7 % (37-53); Lymphocytes # 1.2 10^3/uL (0.8-4.8); Lymphocytes % 7.1 %; Mean Corpuscular HGB Conc 34.7 g/dL (30-55); Mean Corpuscular Hemoglobin 33.1 pg (27-33); Mean Corpuscular Volume 95.5 fl (82-101); Mean Platelet Volume 10.5 fL (7.4-10.4); Monocytes # 0.9 10^3/uL (0.2-0.9); Monocytes % 5.2 %; Neutrophils # 12.62 10^3/uL (1.8-7.7); Neutrophils % 73.1 %; Nucleated Red Blood Cells % 0 %; Platelet Count 315 10^3/cmm (157-399); Red Blood Count 3.53 10^6/uL (3.85-5.65); White Blood Count 17.28 10^3/uL (3.29-11.43)
[2024-04-30 06:21] LABS: Alanine Aminotransferase 220 U/L (0-41); Albumin Level 2.6 g/dL (3.5-5.2); Alkaline Phosphatase 95 U/L (40-130); Anion Gap 26.3 (5-19); Aspartate Amino Transferase 109 U/L (0-40); Calcium 7.2 mg/dL (8.5-10.5); Carbon Dioxide 18 mmol/L (22-29); Chloride 89 mmol/L (98-107); Globulin 2.4 g/dL (1.3-4.6); Glomerular Filtration Rate 5.2 mL/min (90-130); Glucose 99 mg/dL (65-115); Magnesium 2.3 mg/dL (1.7-2.3); Osmolality Calculated 295 mOsm/kg (285-295); Potassium 4.3 mmol/L (3.5-5.1); Sodium 129 mmol/L (136-145); Total Bilirubin 0.3 mg/dL (0.15-1.2)
[2024-04-30 06:28] LABS: Creatine Phosphokinase 949 U/L (39-308)
[2024-04-30 06:29] LABS: Blood Urea Nitrogen 88 mg/dL (6-20); Creatinine Clr Calc Pharmacy 8.9793
[2024-04-30 06:56] LABS: Slide Review Slide Review Perform
[2024-04-30] MEDS: budesonide 0.5 mg/2 mL Neb INHALATION (08:23)
[2024-04-30] MEDS: amiodarone 200 mg Tablet 400 MG PO ×2 (08:45→17:02)
[2024-04-30] MEDS: amoxicillin-clav 875-125 mg Tablet 1 TAB PO ×2 (08:45→17:02)
[2024-04-30] MEDS: thiamine 100 mg Tablet PO (08:46)
[2024-04-30] MEDS: metoprolol tartrate 25 mg Tablet PO ×2 (08:46→20:30)
[2024-04-30] MEDS: amlodipine 10 mg Tablet PO (08:47)
[2024-04-30] MEDS: folic acid 1 mg Tablet PO (08:48)
[2024-04-30] MEDS: sennosides-docusate Tablet 2 TAB PO ×2 (08:48→17:02)
[2024-04-30] MEDS: hyDRALAzine 25 mg Tablet PO ×2 (08:49→17:02)
[2024-04-30] MEDS: multivitamin therapeutic Tablet 1 TAB PO (08:49)
[2024-04-30] MEDS: aspirin 81 mg EC Tablet PO (08:50)
--- NOTE | 2024-04-30 10:59 | P.PN_ITS ---
Subjective 2 Subjective: Patient seen and examined. Temporary hemodialysis catheter not currently withdrawing blood. Pain controlled Vitals/I&O/Wt Last Vital Signs Temp 97.9 F 04/30/24 07:19 Pulse 90 04/30/24 08:34 Resp 18 04/30/24 08:25 BP 148/84 04/30/24 07:19 Pulse Ox 94 04/30/24 08:25 O2 Del Method Room Air 04/30/24 08:25 O2 Flow Rate 3 04/29/24 04:38 FiO2 40 04/27/24 23:25 04/29/24 04/30/24 04/30/24 22:59 06:59 14:59 Intake Total 360 / 840 480 / 480 Output Total 600 / 1350 Balance 360 / 90 -600 / -510 480 / 480 Weight last 48 hrs Weight 207 lb 4.8 oz Weight 210 lb 9.6 oz Weight 206 lb 1.6 oz Physical Exam 2 Narrative: General: No acute distress, awake alert and oriented x 3 Abdomen: Soft, nontender, nondistended Catheter: Right femoral vein temporary hemodialysis catheter not currently withdrawing blood Urinary Catheter Management: Ramirez: Cath Placed During This Visit: yes, but has since been removed by the nurse Reason for Continuing Indwelling Catheter: Other Urinary Catheter Date of Insertion: 04/22/24 Urinary Catheter Time of Insertion: 14:20 Date Urinary Catheter Removed: 04/23/21 Time Urinary Catheter Discontinued: 17:44 Data 04/30/24 05:03 04/30/24 05:03 Micro: Microbiology 04/25/24 23:21 Gram Stain - Final Sputum - Expectorated Sputum Sputum Culture - Preliminary Yeast species A&P Assessment and plan (1) Alcohol use: (2) HFrEF (heart failure with reduced ejection fraction): (3) NSTEMI (non-ST elevated myocardial infarction): (4) Acute renal failure: Qualifiers: Acute renal failure type: unspecified Qualified Code(s): N17.9 - Acute kidney failure, unspecified (5) Septic shock: Plan Catheter withdrawn 2 cm and now functioning well Okay to resume hemodialysis Attestations 2 Medical Necessity Statement*: per primary Coding Level of Care Code 65119 Diagnoses Alcohol use Z78.9 HFrEF (heart failure with reduced ejection fraction) I50.20 NSTEMI (non-ST elevated myocardial infarction) I21.4 Acute renal failure, unspecified acute renal failure type N17.9 Acute renal failure type: unspecified Septic shock A41.9; R65.21
--- NOTE | 2024-04-30 11:10 | PC.SLP ---
No JELLY FILTER TENDER treatment provided. Patient reported no difficulty consuming his breakfast with no coughing/choking.
--- NOTE | 2024-04-30 11:20 | PM.PN ---
Subjective Subjective: seen and examined. feels better. no n/v/f/c/jackson/d Medications: Reviewed: Yes Medication Review Details: Current Medications Acetaminophen (Acetaminophen 500 Mg Tablet) 1,000 mg PO Q6H PRN PRN Reason: fever Last Admin: 04/27/24 12:33 Dose: 1,000 mg Albuterol/Ipratropium (Ipratropium-Albuterol 3 Ml Neb) 3 ml INHALATION Q4H.RESPIRATORY [facility] Last Admin: 04/30/24 11:13 Dose: 3 ml Amiodarone HCl (Amiodarone 200 Mg Tablet) 400 mg PO BID [facility] Last Admin: 04/30/24 08:45 Dose: 400 mg Amlodipine Besylate (Amlodipine 10 Mg Tablet) 10 mg PO DAILY [facility] Last Admin: 04/30/24 08:47 Dose: 10 mg Amoxicillin/Clavulanate Potassium (Amoxicillin-Clav 875-125 Mg Tablet) 1 tab PO BID [facility]; Protocol Last Admin: 04/30/24 08:45 Dose: 1 tab Aspirin (Aspirin 81 Mg Ec Tablet) 81 mg PO DAILY [facility] Last Admin: 04/30/24 08:50 Dose: 81 mg Budesonide (Budesonide 0.5 Mg/2 Ml Neb) 0.5 mg INHALATION BID.RESPIRATORY [facility] Last Admin: 04/30/24 08:23 Dose: 0.5 mg Enoxaparin Sodium (Enoxaparin 80 Mg/0.8 Ml Syringe) 80 mg SUBCUT Q24H [facility] Last Admin: 04/27/24 14:48 Dose: 80 mg Folic Acid (Folic Acid 1 Mg Tablet) 1 mg PO DAILY [facility] Last Admin: 04/30/24 08:48 Dose: 1 mg Hydralazine HCl (Hydralazine 25 Mg Tablet) 25 mg PO BID [facility] Last Admin: 04/30/24 08:49 Dose: 25 mg Hydralazine HCl (Hydralazine 20 Mg/Ml Inj 1 Ml) 5 mg IVP Q4H PRN PRN Reason: bp>180/100 Lanolin (Lanolin Oint 7 Gm) 1 applic TOPICAL PRN PRN PRN Reason: DRYNESS Last Admin: 04/25/24 19:31 Dose: 1 applic Metoprolol Tartrate (Metoprolol Tartrate 25 Mg Tablet) 25 mg PO BID@0900,2100 [facility] Last Admin: 04/30/24 08:46 Dose: 25 mg Multivitamins Therapeutic (Multivitamin Therapeutic Tablet) 1 tab PO DAILY [facility] Last Admin: 04/30/24 08:49 Dose: 1 tab Ondansetron HCl (Ondansetron 2 Mg/Ml Sdv 2 Ml) 4 mg IVP Q6H PRN PRN Reason: NAUSEA AND VOMITING Pantoprazole Sodium (Pantoprazole 40 Mg Sdv) 40 mg IVP Q12H [facility] Last Admin: 04/30/24 06:00 Dose: 40 mg Senna/Docusate Sodium (Sennosides-Docusate Tablet) 2 tab PO BID [facility] Last Admin: 04/30/24 08:48 Dose: 2 tab Thiamine Mononitrate (Thiamine 100 Mg Tablet) 100 mg PO DAILY [facility] Last Admin: 04/30/24 08:46 Dose: 100 mg Vitals/I&O/Wt Last Vital Signs Temp 97.9 F 04/30/24 07:19 Pulse 89 04/30/24 11:18 Resp 16 04/30/24 11:16 BP 148/84 04/30/24 07:19 Pulse Ox 94 04/30/24 11:16 O2 Del Method Nasal Cannula 04/30/24 11:16 O2 Flow Rate 2 04/30/24 11:16 FiO2 40 04/27/24 23:25 04/29/24 04/30/24 04/30/24 22:59 06:59 14:59 Intake Total 360 / 840 480 / 480 Output Total 600 / 1350 Balance 360 / 90 -600 / -510 480 / 480 Weight last 48 hrs Weight 94.03 kg Weight 95.527 kg Weight 93.485 kg Physical Exam Narrative: lying in bed, comfortable Room air. vss heent- nc/at lungs b/l wheezes, heart irreg+HSM abd soft, nt, nd, + bs right groin dialysis catheter ext - minimal edema neuro- awake, alert, o x 3. no asterixis, moves all extremities Urinary Catheter Management: Ramirez: Cath Placed During This Visit: yes, but has since been removed by the nurse Reason for Continuing Indwelling Catheter: Other Urinary Catheter Date of Insertion: 04/22/24 Urinary Catheter Time of Insertion: 14:20 Date Urinary Catheter Removed: 04/23/21 Time Urinary Catheter Discontinued: 17:44 Data 04/30/24 05:03 04/30/24 05:03 Micro: Microbiology 04/25/24 23:21 Gram Stain - Final Sputum - Expectorated Sputum Sputum Culture - Preliminary Yeast species A&P Assessment and plan (1) LISSETTE (acute kidney injury): 59 yr old man 1. pna- renal dose abx. keep trough under 19 2. NSTEMI 3. LISSETTE - urinalysis noted- w/ wbc, rbc, granular casts- concern for ATN elevated ur na of 53 -no hydronephrosis on renal us - s/p HD x 3- catheter did not work well - he is non- oliguric repeat CPK now 949l - amy + 1:320- same as in 2020 -negative anca -send anti-DNA -hep profile noted hold HD. give na bicarb pills and monitor for further HD needs 4. leukocytosis -please remove temp HD catheter 5. hyponatremia- elevated cortisol, normal tsh. elevated ur na 53 -likely from lissette and pna monitor w/ na bicarb pills 6. inc LFT's- likely shocked liver, q from rhabdomyolysis remains elevated- ast/ alt 109/ 220- but improved 7. elevated pth= will give a vit d analouge phos binder 8. a fib controlled -hold eliquis please ensure all meds are dosed for GFR <10 seen and examined w/ RN- telehealth visit discussed w/ pt, RN, and Dr Pettit Plan see above Attestations Medical Necessity Statement*: lissette, hyponatremia, leukocytosis Time Spent in Patient Care: 16 - 35 minutes Coding Level of Care Code Acute Code for [facility] Diagnoses LISSETTE (acute kidney injury) N17.9
--- NOTE | 2024-04-30 11:55 | P.PN_ITS ---
Subjective 2 Subjective: Template dialysis catheter is functional, Dr. Macdonald retracted the catheter at the bedside, started flushing appropriately As per Dr. Chilel: Plan is to hold off on dialysis over the and make a decision by Thursday if we are going with permanent dialysis catheter placement versus removing temporary dialysis catheter Patient has not done well with physical therapy, however clinically he is not fluid overloaded Afebrile Leukocytosis noted I have discontinued his inhaled steroids, afebrile, cultures negative Sputum culture showing yeast Hemoglobin stable however FOBT positive Vitals/I&O/Wt Last Vital Signs Temp 97.9 F 04/30/24 07:19 Pulse 89 04/30/24 11:18 Resp 16 04/30/24 11:16 BP 148/84 04/30/24 07:19 Pulse Ox 94 04/30/24 11:16 O2 Del Method Nasal Cannula 04/30/24 11:16 O2 Flow Rate 2 04/30/24 11:16 FiO2 40 04/27/24 23:25 04/29/24 04/30/24 04/30/24 22:59 06:59 14:59 Intake Total 360 / 840 480 / 480 Output Total 600 / 1350 Balance 360 / 90 -600 / -510 480 / 480 Weight last 48 hrs Weight 94.03 kg Weight 95.527 kg Weight 93.485 kg Physical Exam 2 Narrative: Pleasant cooperative Euvolemic GCS 15 Nonfocal neuroexam S1, S2 Abdomen soft Nonfocal neuroexam Pleasant cooperative Urinary Catheter Management: Ramirez: Cath Placed During This Visit: yes, but has since been removed by the nurse Reason for Continuing Indwelling Catheter: Other Urinary Catheter Date of Insertion: 04/22/24 Urinary Catheter Time of Insertion: 14:20 Date Urinary Catheter Removed: 04/23/21 Time Urinary Catheter Discontinued: 17:44 Data 04/30/24 05:03 04/30/24 05:03 Micro: Microbiology 04/25/24 23:21 Gram Stain - Final Sputum - Expectorated Sputum Sputum Culture - Preliminary Yeast species A&P Assessment and plan (1) Heart failure with improved ejection fraction (HFimpEF): (2) Non-ischemic cardiomyopathy: (3) Alcohol use: (4) Type 2 diabetes mellitus: Qualifiers: 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: without [place] [facility] use Diabetes mellitus complication status: without complication Qualified Code(s): E11.9 - Type 2 diabetes mellitus without complications (5) ATN (acute tubular necrosis): (6) Septic shock: (7) Rhabdomyolysis: (8) Acute metabolic encephalopathy: (9) Pneumonia: Qualifiers: Laterality: left Lung location: upper lobe of lung Pneumonia type: due to unspecified organism Qualified Code(s): J18.9 - Pneumonia, unspecified organism (10) Atrial fibrillation: Qualifiers: Atrial fibrillation type: persistent (not longstanding) Qualified Code(s): I48.19 - Other persistent atrial fibrillation (11) ICD (implantable cardioverter-defibrillator) in place: Plan 59 male who was admitted for management evaluation of metabolic encephalopathy, sepsis, pneumonia, developed ATN, requiring dialysis, urine output is picking up with use of Lasix, over the weekend will make a decision whether patient will go for permanent dialysis catheter placement on Thursday or not, trial management associate consulted, sputum culture positive for yeast, sepsis has resolved blood cultures negative IV antibiotics changed to Augmentin, patient is getting p.o. antihypertensive regimen, patient is very lethargic and fatigued not participate with PT on daily basis Sepsis: Resolved Blood cultures negative Sepsis secondary to pneumonia Sputum culture positive for yeast Received 1 dose of fluconazole I do not think it will need aggressive treatment at this point Leukocytosis worsening noted Afebrile today Maller rash, JESSICA positive however double-stranded antibodies negative Rest of the autoimmune workup is pending He had positive JESSICA a few years back as well ATN: Etiology sepsis Patient is not oliguric, started making urine with Lasix, dialysis on hold However secondary to positive JESSICA, patient is agreeable for renal biopsy if that is indicated, will make that decision by Thursday Spoke with Dr. Roman Holding off on Lovenox therapeutic regimen which was given once daily A-fib without RVR Continue beta-blockade Eliquis discontinued admission, he was put on therapeutic once daily dose of Lovenox which I am holding in anticipation of renal biopsy on Thursday Nonischemic cardiomyopathy with improved EF AICD in place Improved EF, no need of angiogram as per the cardiology Full code Renal diet Hypertension: Continue antihypertensive regimen Continue PT on daily basis: Patient needs a lot of motivation to get out of bed Normocytic mild anemia FOBT positive hemoglobin is stable I am not requesting general surgery for EGD at this point Attestations 2 Medical Necessity Statement*: Continue medical management Diagnoses Heart failure with improved ejection fraction (HFimpEF) I50.32 Non-ischemic cardiomyopathy I42.8 Alcohol use Z78.9 Type 2 diabetes mellitus without complication, without long-term current use of insulin E11.9 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: without [place] [facility] use Diabetes mellitus complication status: without complication ATN (acute tubular necrosis) N17.0 Septic shock A41.9; R65.21 Rhabdomyolysis M62.82 Acute metabolic encephalopathy G93.41 Pneumonia of left upper lobe due to infectious organism J18.9 Laterality: left Lung location: upper lobe of lung Pneumonia type: due to unspecified organism Persistent atrial fibrillation I48.19 Atrial fibrillation type: persistent (not longstanding) ICD (implantable cardioverter-defibrillator) in place Z95.810
[2024-04-30] MEDS: fluconazole 100 mg Tablet PO (12:16)
[2024-04-30] MEDS: sodium bicarbonate 650 mg Tablet 1300 MG PO ×2 (14:45→20:30)
[2024-04-30 16:45] LABS: Potassium, Radom Urine 13 mmol/L; Urine Creatinine 48 mg/dL (39-259); Urine Random Sodium 33 mmol/L
[2024-04-30 16:46] LABS: Urine Protein Random 72 mg/dL; Urine Random Chloride 19 mmol/L
[2024-04-30 16:50] LABS: Glucose Urine UA Norm (Normal); Ketones Urine Negative (Negative); Protein Urine 1+ (Negative); Specific Gravity, Urine 1.015 (1.005-1.030); Urine Appearance Clear (CLEAR); Urine Color Yellow (Yellow); pH Urine 5 (5-7)
[2024-04-30 16:51] LABS: Add Urine Culture? No; Bacteria Urine 1+ /hpf; Bilirubin Urine Neg (Negative); Blood Urine 3+ (Negative); Leukocyte Esterase Urine Negative (Negative); Nitrate Urine Negative (Negative); Urobilinogen Urine Norm (Negative); WBC Urine 0-4 /hpf (0-5)
--- NOTE | 2024-04-30 20:36 | PC.NURSE ---
Pt refused SCDs, this nurse provided education.
[2024-05-01] VITALS (12 sets, daily range): BP systolic 136–165; BP diastolic 70–74; PULSE 72–88; RESP 15–22; TEMP 36.1–37; O2SAT 91–95
[2024-05-01] MEDS: ipratropium-albuterol 3 mL Neb INHALATION ×5 (00:11→19:53)
[2024-05-01 06:09] LABS: Basophils # 0.1 10^3/uL (0.0-0.1); Basophils % 0.5 %; Eosinophils # 0.5 10^3/uL (0.0-0.8); Eosinophils % 3.1 %; Hematocrit 34.5 % (37-53); Lymphocytes # 1.2 10^3/uL (0.8-4.8); Lymphocytes % 6.9 %; Mean Corpuscular HGB Conc 34.5 g/dL (30-55); Mean Corpuscular Hemoglobin 33.4 pg (27-33); Mean Corpuscular Volume 96.9 fl (82-101); Mean Platelet Volume 10.5 fL (7.4-10.4); Monocytes % 5.7 %; Neutrophils # 12.96 10^3/uL (1.8-7.7); Neutrophils % 73.6 %; Nucleated Red Blood Cells % 0 %; Platelet Count 360 10^3/cmm (157-399); Red Blood Count 3.56 10^6/uL (3.85-5.65); Red Cell Distribution Width 13.2 % (12.1-15.1); White Blood Count 17.58 10^3/uL (3.29-11.43)
[2024-05-01] MEDS: pantoprazole 40 mg SDV IVP ×2 (06:18→18:27)
[2024-05-01 06:21] LABS: Alanine Aminotransferase 183 U/L (0-41); Albumin Level 2.8 g/dL (3.5-5.2); Alkaline Phosphatase 101 U/L (40-130); Anion Gap 26.2 (5-19); Aspartate Amino Transferase 67 U/L (0-40); Calcium 7.3 mg/dL (8.5-10.5); Carbon Dioxide 17 mmol/L (22-29); Chloride 90 mmol/L (98-107); Creatinine Clr Calc Pharmacy 8.1467; Glomerular Filtration Rate 4.7 mL/min (90-130); Glucose 103 mg/dL (65-115); Magnesium 2.3 mg/dL (1.7-2.3); Osmolality Calculated 300 mOsm/kg (285-295); Phosphorus 6.1 mg/dL (2.5-4.5); Potassium 4.2 mmol/L (3.5-5.1); Sodium 129 mmol/L (136-145); Total Bilirubin 0.3 mg/dL (0.15-1.2); Total Protein 5.8 g/dL (6.6-8.7)
[2024-05-01 06:23] LABS: Blood Urea Nitrogen 102 mg/dL (6-20)
--- NOTE | 2024-05-01 06:51 | P.PN_ITS ---
Subjective 2 Subjective: seen and examined. he denies complaints. appetite is not good. no n/v/f/c/jackson/d/sob Medications: Reviewed: Yes Medication Review Details: Current Medications Acetaminophen (Acetaminophen 500 Mg Tablet) 1,000 mg PO Q6H PRN PRN Reason: fever Last Admin: 04/27/24 12:33 Dose: 1,000 mg Albuterol/Ipratropium (Ipratropium-Albuterol 3 Ml Neb) 3 ml INHALATION Q4H.RESPIRATORY [facility] Last Admin: 05/01/24 03:27 Dose: 3 ml Amiodarone HCl (Amiodarone 200 Mg Tablet) 400 mg PO BID [facility] Last Admin: 04/30/24 17:02 Dose: 400 mg Amlodipine Besylate (Amlodipine 10 Mg Tablet) 10 mg PO DAILY [facility] Last Admin: 04/30/24 08:47 Dose: 10 mg Amoxicillin/Clavulanate Potassium (Amoxicillin-Clav 875-125 Mg Tablet) 1 tab PO BID [facility]; Protocol Last Admin: 04/30/24 17:02 Dose: 1 tab Aspirin (Aspirin 81 Mg Ec Tablet) 81 mg PO DAILY [facility] Last Admin: 04/30/24 08:50 Dose: 81 mg Enoxaparin Sodium (Enoxaparin 80 Mg/0.8 Ml Syringe) 80 mg SUBCUT Q24H [facility] Last Admin: 04/27/24 14:48 Dose: 80 mg Folic Acid (Folic Acid 1 Mg Tablet) 1 mg PO DAILY [facility] Last Admin: 04/30/24 08:48 Dose: 1 mg Lanolin (Lanolin Oint 7 Gm) 1 applic TOPICAL PRN PRN PRN Reason: DRYNESS Last Admin: 04/25/24 19:31 Dose: 1 applic Metoprolol Tartrate (Metoprolol Tartrate 25 Mg Tablet) 25 mg PO BID@0900,2100 [facility] Last Admin: 04/30/24 20:30 Dose: 25 mg Multivitamins Therapeutic (Multivitamin Therapeutic Tablet) 1 tab PO DAILY [facility] Last Admin: 04/30/24 08:49 Dose: 1 tab Ondansetron HCl (Ondansetron 2 Mg/Ml Sdv 2 Ml) 4 mg IVP Q6H PRN PRN Reason: NAUSEA AND VOMITING Pantoprazole Sodium (Pantoprazole 40 Mg Sdv) 40 mg IVP Q12H [facility] Last Admin: 05/01/24 06:18 Dose: 40 mg Senna/Docusate Sodium (Sennosides-Docusate Tablet) 2 tab PO BID [facility] Last Admin: 04/30/24 17:02 Dose: 2 tab Sodium Bicarbonate (Sodium Bicarbonate 650 Mg Tablet) 1,300 mg PO TID [facility] Last Admin: 04/30/24 20:30 Dose: 1,300 mg Thiamine Mononitrate (Thiamine 100 Mg Tablet) 100 mg PO DAILY [facility] Last Admin: 04/30/24 08:46 Dose: 100 mg Vitals/I&O/Wt Last Vital Signs Temp 97.8 F 05/01/24 04:00 Pulse 82 05/01/24 04:00 Resp 16 05/01/24 04:00 BP 136/73 05/01/24 04:00 Pulse Ox 93 05/01/24 04:00 O2 Del Method Room Air 05/01/24 04:00 O2 Flow Rate 2 04/30/24 11:16 FiO2 40 04/27/24 23:25 04/30/24 04/30/24 05/01/24 14:59 22:59 06:59 Intake Total 720 / 720 220 / 940 Output Total 650 / 650 Balance 720 / 720 220 / 940 -650 / 290 Weight last 48 hrs Weight 95.073 kg Weight 94.03 kg Physical Exam 2 Narrative: lying in bed, comfortable Room air. vss heent- nc/at lung- CTA b/l, heart irreg+HSM abd soft, nt, nd, + bs right groin dialysis catheter ext - minimal edema neuro- awake, alert, o x 3. no asterixis, moves all extremities Urinary Catheter Management: Ramirez: Cath Placed During This Visit: yes, but has since been removed by the nurse Reason for Continuing Indwelling Catheter: Other Urinary Catheter Date of Insertion: 04/22/24 Urinary Catheter Time of Insertion: 14:20 Date Urinary Catheter Removed: 04/23/21 Time Urinary Catheter Discontinued: 17:44 Data 05/01/24 05:18 05/01/24 05:18 A&P Assessment and plan (1) LISSETTE (acute kidney injury): 59 yr old man 1. pna-per hospitalist- now off of abx 2. NSTEMI 3. LISSETTE - urinalysis noted- w/ wbc, rbc, granular casts- concern for ATN elevated ur na of 53 -no hydronephrosis on renal us - s/p HD x 3- catheter did not work well- Dr Macdonald moves it 2 cm and now good blood draw - he is non- oliguric repeat CPK now 949l - amy + 1:320- same as in 2020- stop hydralazine, can cause false +AMY -negative anca -send anti-DNA -hep profile noted hold HD. give na bicarb pills and monitor for further HD needs -if cr rising tomorrow, will dialyze. will discuss possible transfer for renal biopsy and Q of emperic steroids if no improvement -overnight rate of decline in GFR has decreased 4. leukocytosis -per medicine 5. hyponatremia- elevated cortisol, normal tsh. elevated ur na 53 -likely from lissette and pna monitor w/ na bicarb pills 6. inc LFT's- likely shocked liver, q from rhabdomyolysis -slowly improving 7. elevated pth= will give a vit d analouge phos binder 8. a fib controlled -hold eliquis as may need a permacath and /or a renal biopsy please ensure all meds are dosed for GFR <10 seen and examined w/ RN- telehealth visit discussed w/ pt, RN Plan see above Attestations 2 Medical Necessity Statement*: lissette, hyponatremia Time Spent in Patient Care: 16 - 35 minutes Coding Level of Care Code Acute Code for Chg Fwd Diagnoses LISSETTE (acute kidney injury) N17.9
[2024-05-01] MEDS: amoxicillin-clav 875-125 mg Tablet 1 TAB PO (09:06)
[2024-05-01] MEDS: sodium bicarbonate 650 mg Tablet 1300 MG PO ×3 (09:06→19:53)
[2024-05-01] MEDS: thiamine 100 mg Tablet PO (09:07)
[2024-05-01] MEDS: amiodarone 200 mg Tablet 400 MG PO ×2 (09:07→18:27)
[2024-05-01] MEDS: multivitamin therapeutic Tablet 1 TAB PO (09:08)
[2024-05-01] MEDS: sennosides-docusate Tablet 2 TAB PO ×2 (09:09→18:27)
[2024-05-01] MEDS: folic acid 1 mg Tablet PO (09:10)
[2024-05-01] MEDS: metoprolol tartrate 25 mg Tablet PO ×2 (09:10→19:53)
[2024-05-01] MEDS: amlodipine 10 mg Tablet PO (09:11)
[2024-05-01] MEDS: aspirin 81 mg EC Tablet PO (09:11)
--- NOTE | 2024-05-01 10:01 | CTR_ITS ---
PROCEDURE INFORMATION: Exam: CT Chest Without Contrast; Diagnostic Exam date and time: 05/01/2024 10:11 AM Age: 59 years old Clinical indication: Shortness of breath; Additional info: S/s TECHNIQUE: Imaging protocol: Diagnostic computed tomography of the chest without contrast. Radiation optimization: All CT scans at this facility use at least one of these dose optimization techniques: automated exposure control; mA and/or kV adjustment per patient size (includes targeted exams where dose is matched to clinical indication); or iterative reconstruction. COMPARISON: CT chest con [id number] 04/26/2024 3:25 PM RADIATION DOSE METRICS: Total DLP (mGy-cm): 506.6 FINDINGS: Tubes, catheters and devices: Single lead electronic cardiac device implanted in the left chest. Right upper extremity PICC terminates in the SVC. Lungs: Improving large consolidative opacity in the left upper lobe. Improving scattered patchy opacities throughout the bilateral lungs. Pleural spaces: Persistent small left pleural effusion. No pneumothorax. Heart: Heart is normal in size. No pericardial effusion. Coronary arteries: Coronary artery calcification. Lymph nodes: Multiple prominent upper mediastinal lymph nodes, stable to decreased from prior, likely reactive. Vasculature: Mild scattered calcific disease of the thoracic aorta. Intraperitoneal space: Trace free fluid and stranding throughout the visualized upper abdomen. Bones/joints: No acute osseous findings. Soft tissues: Visualized superficial soft tissues demonstrate mild diffuse anasarca. CT/CT chest con [id number] IMPRESSION: Improving large consolidative opacity in the left upper lobe. Improving scattered patchy opacities throughout the bilateral lungs. These findings are consistent with improving multifocal pneumonia.
--- NOTE | 2024-05-01 10:49 | PM.PN ---
Subjective Subjective: Cytosis trending up afebrile Patient stating that he is feeling better He also had a bowel movement today He was surprised when I told him that his white count was trending up I have requested CT chest without contrast Patient is still showing signs of persistent acidosis Nonoliguric Lasix has been on hold Vitals/I&O/Wt Last Vital Signs Temp 97.0 F L 05/01/24 07:39 Pulse 88 05/01/24 08:26 Resp 20 H 05/01/24 08:26 BP 154/70 05/01/24 07:39 Pulse Ox 94 05/01/24 08:26 O2 Del Method Room Air 05/01/24 08:26 O2 Flow Rate 2 04/30/24 11:16 FiO2 40 04/27/24 23:25 04/30/24 05/01/24 05/01/24 22:59 06:59 14:59 Intake Total 220 / 940 240 / 240 Output Total 650 / 650 Balance 220 / 940 -650 / 290 240 / 240 Weight last 48 hrs Weight 95.073 kg Weight 94.03 kg Physical Exam Narrative: Awake and alert Nonfocal neuroexam No sign of IV line infiltration No sign of meningitis No skin ulcers Maller rash present GCS 15 Nonfocal neuroexam Hypertensive Currently on room air Abdomen soft No sign of fluid overload S1, S2 Urinary Catheter Management: Ramirez: Cath Placed During This Visit: yes, but has since been removed by the nurse Reason for Continuing Indwelling Catheter: Other Urinary Catheter Date of Insertion: 04/22/24 Urinary Catheter Time of Insertion: 14:20 Date Urinary Catheter Removed: 04/23/21 Time Urinary Catheter Discontinued: 17:44 Data 05/01/24 05:18 05/01/24 05:18 A&P Assessment and plan (1) Alcohol use: (2) Heart failure with improved ejection fraction (HFimpEF): (3) Implantable cardioverter-defibrillator (ICD) discharge: (4) Type 2 diabetes mellitus: Qualifiers: 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 Diabetes mellitus complication status: without complication Qualified Code(s): E11.9 - Type 2 diabetes mellitus without complications (5) Transaminitis: (6) ATN (acute tubular necrosis): (7) Septic shock: (8) Rhabdomyolysis: (9) Acute metabolic encephalopathy: (10) Pneumonia: Qualifiers: Laterality: left Lung location: upper lobe of lung Pneumonia type: due to unspecified organism Qualified Code(s): J18.9 - Pneumonia, unspecified organism Plan Worsening leukocytosis noted I do believe source is likely underlying pneumonia I will request CT chest without contrast I do not see any sign of meningitis skin rash other than malar rash on the face There is no IV line infiltration No sign of meningitis Cultures have been negative other than sputum culture positive for yeast for which she received fluconazole I will discontinue Augmentin and put him back on Zosyn and cefepime which I will dose renally Sepsis: Resolved Leukocytosis worsening Positive JESSICA antibodies Lupus ruled out Patient may need renal biopsy ATN: Monitoring urine output off Lasix, patient is showing signs of nonoliguric ATN at this point Persistent metabolic acidosis He might need permanent dialysis catheter on Thursday A-fib Anticoagulation on hold in anticipation of permanent dialysis catheter placement on Thursday Continue beta-anusha Nonischemic cardiomyopathy: Improved EF Full code Renal diet n.p.o. after midnight for possible dialysis catheter placement on Thursday PT on daily basis FOBT positive, hemoglobin stable Attestations Medical Necessity Statement*: Continue medical management Diagnoses Alcohol use Z78.9 Heart failure with improved ejection fraction (HFimpEF) I50.32 Implantable cardioverter-defibrillator (ICD) discharge Z45.02 Type 2 diabetes mellitus without complication, without long-term current use of insulin E11.9 Diabetes mellitus fdc insulin use: without applied psychology teacher use Diabetes mellitus complication status: without complication Transaminitis R74.01 ATN (acute tubular necrosis) N17.0 Septic shock A41.9; R65.21 Rhabdomyolysis M62.82 Acute metabolic encephalopathy G93.41 Pneumonia of left upper lobe due to infectious organism J18.9 Laterality: left Lung location: upper lobe of lung Pneumonia type: due to unspecified organism
[2024-05-01] MEDS: cefepime 1,000 MG in sodium chloride 0.9% (plus) 50 ML 100 MG IV (11:15)
--- NOTE | 2024-05-01 11:31 | PC.PHAR ---
Renal dosing for Cefepime 1 gm q12h changed to q24h due to crcl <11 Thank you, Anna Santamaria RPh
[2024-05-01] MEDS: piperacillin-tazobactam 3.375 GM in sodium chloride 0.9% (plus) 50 ML IV (14:15)
[2024-05-02] VITALS (10 sets, daily range): BP systolic 136–159; BP diastolic 62–82; PULSE 71–99; RESP 16–20; TEMP 36.4–36.9; O2SAT 91–94
[2024-05-02] MEDS: piperacillin-tazobactam 3.375 GM in sodium chloride 0.9% (plus) 50 ML IV (00:17)
[2024-05-02] MEDS: ipratropium-albuterol 3 mL Neb INHALATION ×3 (04:19→20:57)
--- NOTE | 2024-05-02 05:42 | PM.PN ---
Subjective Subjective: Patient is being kept n.p.o. for evaluation of permanent dialysis catheter placement today however Dr. Roman has recommended 1 more session of dialysis today and then removal of temporary dialysis catheter No significant overnight events Hemodynamically stable Nonoliguric ATN Patient is very happy with his progress CT chest showing improvement of consolidation Vitals/I&O/Wt Last Vital Signs Temp 97.9 F 05/02/24 04:00 Pulse 74 05/02/24 04:15 Resp 16 05/02/24 04:15 BP 138/68 05/02/24 04:00 Pulse Ox 91 05/02/24 04:15 O2 Del Method Room Air 05/02/24 04:15 O2 Flow Rate 2 04/30/24 11:16 FiO2 40 04/27/24 23:25 05/01/24 05/01/24 05/02/24 14:59 22:59 06:59 Intake Total 650 / 650 290 / 940 50 / 990 Output Total 300 / 300 550 / 850 Balance 650 / 650 -10 / 640 -500 / 140 Weight last 48 hrs Weight 93.984 kg Weight 95.073 kg Physical Exam Narrative: Euvolemic On room air Hemodynamically stable Abdomen soft Nonfocal neuroexam S1, S2 A-fib without RVR Pleasant cooperative Nonfocal neuroexam Urinary Catheter Management: Ramirez: Cath Placed During This Visit: yes, but has since been removed by the nurse Reason for Continuing Indwelling Catheter: Other Urinary Catheter Date of Insertion: 04/22/24 Urinary Catheter Time of Insertion: 14:20 Date Urinary Catheter Removed: 04/23/21 Time Urinary Catheter Discontinued: 17:44 Data 05/01/24 05:18 05/02/24 05:22 Micro: Microbiology 04/25/24 23:21 Gram Stain - Final Sputum - Expectorated Sputum Sputum Culture - Final Eva albicans A&P Assessment and plan (1) Alcohol use: (2) Heart failure with improved ejection fraction (HFimpEF): (3) Non-ischemic cardiomyopathy: (4) Atrial fibrillation: Qualifiers: Atrial fibrillation type: persistent (not longstanding) Qualified Code(s): I48.19 - Other persistent atrial fibrillation (5) ICD (implantable cardioverter-defibrillator) in place: (6) Type 2 diabetes mellitus: Qualifiers: Diabetes mellitus complication status: without complication 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: without intermodal truck driver use Qualified Code(s): E11.9 - Type 2 diabetes mellitus without complications (7) Transaminitis: (8) ATN (acute tubular necrosis): (9) Septic shock: (10) Rhabdomyolysis: (11) Acute metabolic encephalopathy: (12) Pneumonia: Qualifiers: Laterality: left Lung location: upper lobe of lung Pneumonia type: due to unspecified organism Qualified Code(s): J18.9 - Pneumonia, unspecified organism (13) Tobacco use: Plan Sepsis: Resolved Afebrile Patient has been put on IV antibiotics again on 05/01 for worsening of leukocytosis CT scan of the lung showing improvement of consolidative changes Cultures negative to date ATN: Nonoliguric Patient is acidotic Creatinine has not improved significantly Persistent acidosis Plan for 1 session of dialysis today and then removal of temporary dialysis catheter, no plan for permanent dialysis catheter as of now A-fib without RVR Eliquis on hold Continue AV janessa blocking agent JESSICA positive, lupus antibodies negative No significant anemia despite positive FOBT Pneumonia: Patient has been started on IV antibiotics for worsening leukocytosis however CT scan showing improvement of consolidative changes Dysphagia diet has been improved to renal dialysis diet Full code Disposition Home once stable Attestations Medical Necessity Statement*: Continue medical management Diagnoses Alcohol use Z78.9 Heart failure with improved ejection fraction (HFimpEF) I50.32 Non-ischemic cardiomyopathy I42.8 Persistent atrial fibrillation I48.19 Atrial fibrillation type: persistent (not longstanding) ICD (implantable cardioverter-defibrillator) in place Z95.810 Type 2 diabetes mellitus without complication, without long-term current use of insulin E11.9 Diabetes mellitus complication status: without complication Diabetes mellitus mcfp insulin use: without intermodal truck driver use Transaminitis R74.01 ATN (acute tubular necrosis) N17.0 Septic shock A41.9; R65.21 Rhabdomyolysis M62.82 Acute metabolic encephalopathy G93.41 Pneumonia of left upper lobe due to infectious organism J18.9 Laterality: left Lung location: upper lobe of lung Pneumonia type: due to unspecified organism Tobacco use Z72.0
[2024-05-02] MEDS: pantoprazole 40 mg SDV IVP ×2 (06:17→15:13)
[2024-05-02 07:01] LABS: Alanine Aminotransferase 130 U/L (0-41); Albumin Level 2.7 g/dL (3.5-5.2); Alkaline Phosphatase 98 U/L (40-130); Aspartate Amino Transferase 49 U/L (0-40); Calcium 7.5 mg/dL (8.5-10.5); Carbon Dioxide 17 mmol/L (22-29); Chloride 93 mmol/L (98-107); Creatinine Clr Calc Pharmacy 7.3845; Globulin 2.7 g/dL (1.3-4.6); Glomerular Filtration Rate 4.2 mL/min (90-130); Glucose 96 mg/dL (65-115); Magnesium 2.5 mg/dL (1.7-2.3); Osmolality Calculated 309 mOsm/kg (285-295); Phosphorus 6.7 mg/dL (2.5-4.5); Sodium 132 mmol/L (136-145); Total Bilirubin 0.3 mg/dL (0.15-1.2); Total Protein 5.4 g/dL (6.6-8.7)
[2024-05-02 07:15] LABS: Anion Gap 26.7 (5-19); Blood Urea Nitrogen 110 mg/dL (6-20); Potassium 4.7 mmol/L (3.5-5.1)
--- NOTE | 2024-05-02 07:53 | PM.PN ---
Subjective Subjective: seen and examined . weak and hungry andthirsty. no n/v/f/c/jackson/d Medications: Reviewed: Yes Medication Review Details: Current Medications Acetaminophen (Acetaminophen 500 Mg Tablet) 1,000 mg PO Q6H PRN PRN Reason: fever Last Admin: 04/27/24 12:33 Dose: 1,000 mg Albuterol/Ipratropium (Ipratropium-Albuterol 3 Ml Neb) 3 ml INHALATION Q4H.RESPIRATORY ANAY Last Admin: 05/02/24 04:19 Dose: 3 ml Amiodarone HCl (Amiodarone 200 Mg Tablet) 400 mg PO BID ANAY Last Admin: 05/01/24 18:27 Dose: 400 mg Amlodipine Besylate (Amlodipine 10 Mg Tablet) 10 mg PO DAILY ANAY Last Admin: 05/01/24 09:11 Dose: 10 mg Aspirin (Aspirin 81 Mg Ec Tablet) 81 mg PO DAILY ANAY Last Admin: 05/01/24 09:11 Dose: 81 mg Enoxaparin Sodium (Enoxaparin 80 Mg/0.8 Ml Syringe) 80 mg SUBCUT Q24H ANAY Last Admin: 04/27/24 14:48 Dose: 80 mg Folic Acid (Folic Acid 1 Mg Tablet) 1 mg PO DAILY ANAY Last Admin: 05/01/24 09:10 Dose: 1 mg Piperacillin Sod/Tazobactam (Sod 3.375 gm/ Sodium Chloride) 50 mls @ 12.5 mls/hr IV Q12H [facility]; Protocol Last Infusion: 05/02/24 04:03 Dose: Infused Cefepime HCl 1,000 mg/ Sodium (Chloride) 50 mls @ 100 mls/hr IV Q24H [facility]; Protocol Last Admin: 05/01/24 11:35 Dose: Not Given Lanolin (Lanolin Oint 7 Gm) 1 applic TOPICAL PRN PRN PRN Reason: DRYNESS Last Admin: 04/25/24 19:31 Dose: 1 applic Metoprolol Tartrate (Metoprolol Tartrate 25 Mg Tablet) 25 mg PO BID@0900,2100 ANAY Last Admin: 05/01/24 19:53 Dose: 25 mg Multivitamins Therapeutic (Multivitamin Therapeutic Tablet) 1 tab PO DAILY ANAY Last Admin: 05/01/24 09:08 Dose: 1 tab Ondansetron HCl (Ondansetron 2 Mg/Ml Sdv 2 Ml) 4 mg IVP Q6H PRN PRN Reason: NAUSEA AND VOMITING Pantoprazole Sodium (Pantoprazole 40 Mg Sdv) 40 mg IVP Q12H [facility] Last Admin: 05/02/24 06:17 Dose: 40 mg Senna/Docusate Sodium (Sennosides-Docusate Tablet) 2 tab PO BID [facility] Last Admin: 05/01/24 18:27 Dose: 2 tab Sodium Bicarbonate (Sodium Bicarbonate 650 Mg Tablet) 1,300 mg PO TID [facility] Last Admin: 05/01/24 19:53 Dose: 1,300 mg Thiamine Mononitrate (Thiamine 100 Mg Tablet) 100 mg PO DAILY [facility] Last Admin: 05/01/24 09:07 Dose: 100 mg Vitals/I&O/Wt Last Vital Signs Temp 97.9 F 05/02/24 04:00 Pulse 74 05/02/24 04:15 Resp 16 05/02/24 04:15 BP 138/68 05/02/24 04:00 Pulse Ox 91 05/02/24 04:15 O2 Del Method Room Air 05/02/24 04:15 O2 Flow Rate 2 04/30/24 11:16 FiO2 40 04/27/24 23:25 05/01/24 05/02/24 05/02/24 22:59 06:59 14:59 Intake Total 290 / 940 50 / 990 Output Total 300 / 300 550 / 850 Balance -10 / 640 -500 / 140 Weight last 48 hrs Weight 93.984 kg Weight 95.073 kg Physical Exam Narrative: lying in bed, comfortable Room air. vss heent- nc/at lung- diffuse crackles and wheezes b/l, heart irreg+HSM abd soft, nt, nd, + bs right groin dialysis catheter ext - minimal edema neuro- awake, alert, o x 3. no asterixis, moves all extremities Urinary Catheter Management: Ramirez: Cath Placed During This Visit: yes, but has since been removed by the nurse Reason for Continuing Indwelling Catheter: Other Urinary Catheter Date of Insertion: 04/22/24 Urinary Catheter Time of Insertion: 14:20 Date Urinary Catheter Removed: 04/23/21 Time Urinary Catheter Discontinued: 17:44 Data 05/01/24 05:18 05/02/24 05:22 Micro: Microbiology 04/25/24 23:21 Gram Stain - Final Sputum - Expectorated Sputum Sputum Culture - Final Eva albicans A&P Assessment and plan (1) LISSETTE (acute kidney injury): 59 yr old man 1. pna-per hospitalist- now off of abx 2. NSTEMI 3. LISSETTE - urinalysis noted- w/ wbc, rbc, granular casts- concern for ATN elevated ur na of 53 -no hydronephrosis on renal us - s/p HD x 3- catheter did not work well- Dr Macdonald moves it 2 cm and now good blood draw - he is non- oliguric repeat CPK now 949l - amy + 1:320- same as in 2020- stop hydralazine, can cause false +AMY -negative anca -send anti-DNA -hep profile noted - HD now and then remove catheter please send anti- gbm. +AMY for 3 years. if kidneys do not improve, would recommend a kidney biopsy -other serologies are negative -if we ca get a kidney bx, will consider emperic steroids- He has RBC's on u/a. however, as he had multi-organ failure- more likely ATN, rate of rise of cr is decreasing 4. leukocytosis -per medicine CT w/ multifocal pna d/c dialysis catheter today post HD 5. hyponatremia- elevated cortisol, normal tsh. elevated ur na 53 -likely from lissette and pna monitor w/ na bicarb pills 6. inc LFT's- likely shocked liver, q from rhabdomyolysis -slowly improving 7. elevated pth= will give a vit d analouge phos binder 8. a fib controlled -hold eliquis as may need a permacath and /or a renal biopsy please ensure all meds are dosed for GFR <10 seen and examined w/ RN- telehealth visit discussed w/ pt, RN, and Dr Pettit Plan see above. HD, remove dialysis catheetr post dialysis. send anti- gbm. monitor trenal fxn. consider renal bx Attestations Medical Necessity Statement*: lissette, Time Spent in Patient Care: Greater than 35 minutes Coding Level of Care Code Acute Code for [facility] Fwd Diagnoses LISSETTE (acute kidney injury) N17.9
[2024-05-02] MEDS: amlodipine 10 mg Tablet 5 MG PO (08:11)
[2024-05-02] MEDS: metoprolol tartrate 25 mg Tablet PO ×2 (08:11→20:03)
[2024-05-02] MEDS: sennosides-docusate Tablet 2 TAB PO ×2 (08:11→15:14)
[2024-05-02] MEDS: thiamine 100 mg Tablet PO (08:11)
[2024-05-02] MEDS: sodium bicarbonate 650 mg Tablet 1300 MG PO ×3 (08:11→20:03)
[2024-05-02] MEDS: folic acid 1 mg Tablet PO (08:12)
[2024-05-02] MEDS: amiodarone 200 mg Tablet 400 MG PO ×2 (08:12→15:14)
[2024-05-02] MEDS: multivitamin therapeutic Tablet 1 TAB PO (08:12)
[2024-05-02] MEDS: heparin, porcine 1,000 unit/mL INJ 10 mL 1000 UNIT IV (10:55)
[2024-05-02 15:40] LABS: Anti-Double Strand DNA AB <1 IU/mL
[2024-05-03] VITALS (13 sets, daily range): BP systolic 129–161; BP diastolic 67–78; PULSE 70–84; RESP 15–20; TEMP 36.1–37; O2SAT 90–98
[2024-05-03] MEDS: piperacillin-tazobactam 3.375 GM in sodium chloride 0.9% (plus) 50 ML IV ×2 (00:13→13:07)
[2024-05-03 04:41] LABS: Basophils % 0.2 %; Eosinophils # 0.3 10^3/uL (0.0-0.8); Eosinophils % 1.8 %; Hematocrit 30.4 % (37-53); Lymphocytes # 1.1 10^3/uL (0.8-4.8); Lymphocytes % 6.9 %; Mean Corpuscular HGB Conc 33.6 g/dL (30-55); Mean Corpuscular Hemoglobin 33.1 pg (27-33); Mean Corpuscular Volume 98.7 fl (82-101); Mean Platelet Volume 9.8 fL (7.4-10.4); Monocytes # 1.4 10^3/uL (0.2-0.9); Monocytes % 9.3 %; Neutrophils # 11.71 10^3/uL (1.8-7.7); Nucleated Red Blood Cells % 0 %; Platelet Count 390 10^3/cmm (157-399); Red Blood Count 3.08 10^6/uL (3.85-5.65); Red Cell Distribution Width 13.6 % (12.1-15.1); White Blood Count 15.41 10^3/uL (3.29-11.43)
[2024-05-03 04:58] LABS: Slide Review Slide Review Perform
[2024-05-03 05:04] LABS: Alanine Aminotransferase 96 U/L (0-41); Albumin Level 2.4 g/dL (3.5-5.2); Alkaline Phosphatase 68 U/L (40-130); Anion Gap 19.1 (5-19); Aspartate Amino Transferase 39 U/L (0-40); Blood Urea Nitrogen 64 mg/dL (6-20); Calcium 7.6 mg/dL (8.5-10.5); Carbon Dioxide 23 mmol/L (22-29); Chloride 100 mmol/L (98-107); Globulin 2.6 g/dL (1.3-4.6); Glomerular Filtration Rate 5.9 mL/min (90-130); Glucose 108 mg/dL (65-115); Magnesium 2.2 mg/dL (1.7-2.3); Osmolality Calculated 305 mOsm/kg (285-295); Potassium 4.1 mmol/L (3.5-5.1); Sodium 138 mmol/L (136-145); Total Bilirubin 0.3 mg/dL (0.15-1.2)
[2024-05-03 05:07] LABS: Creatinine Clr Calc Pharmacy 10.0706
[2024-05-03] MEDS: pantoprazole 40 mg SDV IVP ×2 (06:32→17:57)
[2024-05-03] MEDS: ipratropium-albuterol 3 mL Neb INHALATION ×3 (08:31→20:22)
[2024-05-03] MEDS: metoprolol tartrate 25 mg Tablet PO ×2 (08:41→20:43)
[2024-05-03] MEDS: amiodarone 200 mg Tablet 400 MG PO ×2 (08:41→17:57)
[2024-05-03] MEDS: folic acid 1 mg Tablet PO (08:41)
[2024-05-03] MEDS: sennosides-docusate Tablet 2 TAB PO ×2 (08:41→17:57)
[2024-05-03] MEDS: multivitamin therapeutic Tablet 1 TAB PO (08:41)
[2024-05-03] MEDS: thiamine 100 mg Tablet PO (08:41)
[2024-05-03] MEDS: sodium bicarbonate 650 mg Tablet 1300 MG PO ×3 (08:41→20:43)
[2024-05-03] MEDS: amlodipine 10 mg Tablet 5 MG PO (08:42)
--- NOTE | 2024-05-03 09:37 | PC.CHAP ---
Pastoral Care Encounter/Spiritual Assessment Type of Contact [] Declined plain goods hemmer visit [] Patient/Family/Request visit [] Outpatient visit [] Follow-up visit [] Physician referral [] Code/Alert [x] Routine visit [] Staff referral [] Actively dying [] Patient sleeping [] Family support [] [] Out of room [] Palliative care [] [] Receiving care in room [] Pre-surgical visit [] Trauma [] Long length of stay [] ICU visit [] Other: Relational/Emotional Strength [x] Patient feels connected with others/family/visitors/staff [] Distress [] Loneliness/isolation [] Abandonment Spirituality of Patient [x] Person of Racquel [] Attends Mormonism of their [place] [x] Believes in Prayer [] Reads Bible or Worship materials [] There are Spiritual issues to be addressed Naval Architect Specialist Interventions [x] Prayer [] Active listening [] Non-anxious presence [x] Spiritual/emotional support [] Crisis/trauma care [] Spiritual counseling [] Bereavement support [] Provided bereavement packet [] Provided Bible/devotional materials [] Provided toy/stuffed animal, coloring book to patient or family member [] Provided Communion [] Anointing/[place] [] Salvation [x] Completed spiritual assessment [] Other: Impact on Illness or Injury [] Angry [] Fearful [] Anxious [] Often cries [] Exhaustion [] Unable to work [] Unable to attend episcopalian [] Unable to walk/stand [] Unable to read [] Unable to drive [] Unable to eat/drink [] Unable to sleep [] Unable to be with family [] Patient intubated [] Other: Summary Time spent with patient 5 min
--- NOTE | 2024-05-03 09:56 | PM.PN ---
Subjective Subjective: The patient was seen and examined. The patient states that she is feeling well. The patient is asking to have his catheters removed. He denies nausea or vomiting or fevers or chills or itching or cramps or rash. He tolerated dialysis well yesterday. Medications: Reviewed: Yes Medication Review Details: Current Medications Acetaminophen (Acetaminophen 500 Mg Tablet) 1,000 mg PO Q6H PRN PRN Reason: fever Last Admin: 04/27/24 12:33 Dose: 1,000 mg Albuterol/Ipratropium (Ipratropium-Albuterol 3 Ml Neb) 3 ml INHALATION QID.RESPIRATORY ANAY Last Admin: 05/03/24 08:31 Dose: 3 ml Amiodarone HCl (Amiodarone 200 Mg Tablet) 400 mg PO BID ANAY Last Admin: 05/03/24 08:41 Dose: 400 mg Amlodipine Besylate (Amlodipine 10 Mg Tablet) 5 mg PO DAILY ANAY Last Admin: 05/03/24 08:42 Dose: 5 mg Aspirin (Aspirin 81 Mg Ec Tablet) 81 mg PO DAILY ANAY Last Admin: 05/01/24 09:11 Dose: 81 mg Enoxaparin Sodium (Enoxaparin 80 Mg/0.8 Ml Syringe) 80 mg SUBCUT Q24H ANAY Last Admin: 04/27/24 14:48 Dose: 80 mg Folic Acid (Folic Acid 1 Mg Tablet) 1 mg PO DAILY ANAY Last Admin: 05/03/24 08:41 Dose: 1 mg Piperacillin Sod/Tazobactam (Sod 3.375 gm/ Sodium Chloride) 50 mls @ 12.5 mls/hr IV Q12H [facility]; Protocol Last Infusion: 05/03/24 04:13 Dose: Infused Cefepime HCl 1,000 mg/ Sodium (Chloride) 50 mls @ 100 mls/hr IV Q24H [facility]; Protocol Last Admin: 05/02/24 11:20 Dose: Not Given Lanolin (Lanolin Oint 7 Gm) 1 applic TOPICAL PRN PRN PRN Reason: DRYNESS Last Admin: 04/25/24 19:31 Dose: 1 applic Metoprolol Tartrate (Metoprolol Tartrate 25 Mg Tablet) 25 mg PO BID@0900,2100 ANAY Last Admin: 05/03/24 08:41 Dose: 25 mg Multivitamins Therapeutic (Multivitamin Therapeutic Tablet) 1 tab PO DAILY ANAY Last Admin: 05/03/24 08:41 Dose: 1 tab Ondansetron HCl (Ondansetron 2 Mg/Ml Sdv 2 Ml) 4 mg IVP Q6H PRN PRN Reason: NAUSEA AND VOMITING Pantoprazole Sodium (Pantoprazole 40 Mg Sdv) 40 mg IVP Q12H [facility] Last Admin: 05/03/24 06:32 Dose: 40 mg Senna/Docusate Sodium (Sennosides-Docusate Tablet) 2 tab PO BID [facility] Last Admin: 05/03/24 08:41 Dose: 2 tab Sodium Bicarbonate (Sodium Bicarbonate 650 Mg Tablet) 1,300 mg PO TID [facility] Last Admin: 05/03/24 08:41 Dose: 1,300 mg Thiamine Mononitrate (Thiamine 100 Mg Tablet) 100 mg PO DAILY [facility] Last Admin: 05/03/24 08:41 Dose: 100 mg Vitals/I&O/Wt Last Vital Signs Temp 97.7 F 05/03/24 08:13 Pulse 83 05/03/24 08:33 Resp 15 05/03/24 08:25 BP 145/68 05/03/24 08:13 Pulse Ox 94 05/03/24 08:25 O2 Del Method Room Air 05/03/24 08:25 O2 Flow Rate 2 04/30/24 11:16 FiO2 40 04/27/24 23:25 05/02/24 05/03/24 05/03/24 22:59 06:59 14:59 Intake Total 1400 / 1760 290 / 2050 480 / 480 Output Total 1256 / 1256 250 / 1506 Balance 144 / 504 40 / 544 480 / 480 Weight last 48 hrs Weight 96.388 kg Weight 93.485 kg Weight 93.984 kg Physical Exam Narrative: lying in bed, comfortable Room air. vss heent- nc/at lung-scattered crackles and wheezes b/l, heart irreg+HSM abd soft, nt, nd, + bs Positive Ramirez catheter right groin dialysis catheter ext - minimal edema neuro- awake, alert, o x 3. no asterixis, moves all extremities Urinary Catheter Management: Ramirez: Cath Placed During This Visit: yes, but has since been removed by the nurse Reason for Continuing Indwelling Catheter: Acute Urinary Retention or Obstruction Urinary Catheter Date of Insertion: 04/22/24 Urinary Catheter Time of Insertion: 14:20 Date Urinary Catheter Removed: 04/23/21 Time Urinary Catheter Discontinued: 17:44 Data 05/03/24 04:20 05/03/24 04:20 A&P Assessment and plan (1) LISSETTE (acute kidney injury): 59 yr old man 1. pna-per hospitalist- now off of abx 2. NSTEMI 3. LISSETTE - urinalysis noted- w/ wbc, rbc, granular casts- concern for ATN elevated ur na of 53 -no hydronephrosis on renal us - s/p HD x 3- catheter did not work well- Dr Macdonald moves it 2 cm and now good blood draw - he is non- oliguric repeat CPK now 949l - amy + 1:320- same as in 2020- stop hydralazine, can cause false +AMY -negative anca -Negative anti-DNA -hep profile noted -Will remove dialysis catheter and Ramirez. Awaiting anti- gbm. +AMY for 3 years. if kidneys do not improve, would recommend a kidney biopsy -other serologies are negative -Based on his urine output and change in creatinine and since he is not improving I will soon consider steroids- He has RBC's on u/a. however, as he had multi-organ failure- more likely ATN, rate of rise of cr is decreasing I Explained to the patient that we cannot discharge him now unless he would want to be on dialysis and monitor for renal recovery as an outpatient. I would like to remove his femoral catheter and monitor how he does over the next couple of days prior to putting in a permacath if possible. 4. leukocytosis -per medicine CT w/ multifocal pna d/c dialysis catheter and Ramirez catheter 5. hyponatremia- elevated cortisol, normal tsh. elevated ur na 53 -likely from lissette and pna monitor w/ na bicarb pills 6. inc LFT's- likely shocked liver, q from rhabdomyolysis -slowly improving 7. Anemia: Check iron studies and ferritin. 8. Elevated pth= will give a vit d analouge phos binder 9. a fib controlled -hold eliquis as may need a permacath and /or a renal biopsy please ensure all meds are dosed for GFR <10 seen and examined w/ RN- telehealth visit discussed w/ pt, RN Plan see above. Attestations Medical Necessity Statement*: Acute kidney injury question of AMY related. Question ATN. Monitor renal recovery. Patient with leukocytosis. Removed Ramirez catheter and femoral catheter. Time Spent in Patient Care: 16 - 35 minutes Coding Level of Care Code Acute Code for [facility] Fwd Diagnoses LISSETTE (acute kidney injury) N17.9
--- NOTE | 2024-05-03 11:47 | PM.PN ---
Subjective Subjective: Plan for removal of Ramirez catheter and dialysis catheter, at this point patient is getting ready anxious to return home however renal recovery is being monitored at the point which patient understands completely Nephrology is wanting to watch him for next 2 to 3 days to decide whether we will need high-dose steroids or renal biopsy Close cytosis trending down to 15,000, afebrile, Vitals/I&O/Wt Last Vital Signs Temp 97.7 F 05/03/24 08:13 Pulse 83 05/03/24 08:33 Resp 15 05/03/24 08:25 BP 145/68 05/03/24 08:13 Pulse Ox 94 05/03/24 08:25 O2 Del Method Room Air 05/03/24 08:25 O2 Flow Rate 2 04/30/24 11:16 FiO2 40 04/27/24 23:25 05/02/24 05/03/24 05/03/24 22:59 06:59 14:59 Intake Total 1400 / 1760 290 / 2050 480 / 480 Output Total 1256 / 1256 250 / 1506 Balance 144 / 504 40 / 544 480 / 480 Weight last 48 hrs Weight 96.388 kg Weight 93.485 kg Weight 93.984 kg Physical Exam Narrative: Patient is awake and alert Getting anxious to return home Euvolemic Abdomen soft Currently on room air S1, S2 GCS 15 Urinary Catheter Management: Ramirez: Cath Placed During This Visit: yes, but has since been removed by the nurse Reason for Continuing Indwelling Catheter: Acute Urinary Retention or Obstruction Urinary Catheter Date of Insertion: 04/22/24 Urinary Catheter Time of Insertion: 14:20 Date Urinary Catheter Removed: 04/23/21 Time Urinary Catheter Discontinued: 17:44 Data 05/03/24 04:20 05/03/24 04:20 A&P Assessment and plan (1) Alcohol use: (2) Heart failure with improved ejection fraction (HFimpEF): (3) Implantable cardioverter-defibrillator (ICD) discharge: (4) Atrial fibrillation: Qualifiers: Atrial fibrillation type: persistent (not longstanding) Qualified Code(s): I48.19 - Other persistent atrial fibrillation (5) Type 2 diabetes mellitus: Qualifiers: Diabetes mellitus remote computer terminal operator insulin use: without remote computer terminal operator use Diabetes mellitus complication status: without complication Qualified Code(s): E11.9 - Type 2 diabetes mellitus without complications (6) Transaminitis: (7) ATN (acute tubular necrosis): (8) Septic shock: (9) Rhabdomyolysis: (10) Acute metabolic encephalopathy: (11) Pneumonia: Qualifiers: Laterality: left Lung location: upper lobe of lung Pneumonia type: due to unspecified organism Qualified Code(s): J18.9 - Pneumonia, unspecified organism Plan Our plan is to watch him off dialysis for the next 2 days to decide whether we need renal biopsy or start high-dose steroids He is making 600 mill urine on daily basis Nonoliguric ATN Community-acquired pneumonia Consulted changes improving Leukocytosis improving I will keep him on IV antibiotics until white count is below 14,000 Patient experiencing bowel movement on daily basis Full code Renal diet Removal of Ramirez catheter and dialysis catheter today Appreciate nephro recommendations Attestations Medical Necessity Statement*: Continue medical management Diagnoses Alcohol use Z78.9 Heart failure with improved ejection fraction (HFimpEF) I50.32 Implantable cardioverter-defibrillator (ICD) discharge Z45.02 Persistent atrial fibrillation I48.19 Atrial fibrillation type: persistent (not longstanding) Type 2 diabetes mellitus without complication, without long-term current use of insulin E11.9 Diabetes mellitus long-term insulin use: without long-term use Diabetes mellitus complication status: without complication Transaminitis R74.01 ATN (acute tubular necrosis) N17.0 Septic shock A41.9; R65.21 Rhabdomyolysis M62.82 Acute metabolic encephalopathy G93.41 Pneumonia of left upper lobe due to infectious organism J18.9 Laterality: left Lung location: upper lobe of lung Pneumonia type: due to unspecified organism
[2024-05-03] MEDS: cefepime 1,000 MG in sodium chloride 0.9% (plus) 50 ML 100 MG IV (11:58)
--- NOTE | 2024-05-03 12:03 | PC.NURSE ---
Temporary dialysis catheter removed per Dr. Mcconnell, and Dr. Pettit. Pressure held x10 minutes. Dressing applied. Ramirez catheter removed per verbal orders from Dr. Mcconnell. Everything in tact. Nurse will continue to monitor.
[2024-05-04] VITALS (15 sets, daily range): BP systolic 119–166; BP diastolic 63–81; PULSE 67–88; RESP 10–20; TEMP 36.2–36.8; O2SAT 91–95
[2024-05-04] MEDS: piperacillin-tazobactam 3.375 GM in sodium chloride 0.9% (plus) 50 ML IV ×2 (01:45→12:07)
[2024-05-04 04:59] LABS: Basophils % 0.3 %; Eosinophils # 0.2 10^3/uL (0.0-0.8); Eosinophils % 1.5 %; Hematocrit 30.7 % (37-53); Lymphocytes # 1.2 10^3/uL (0.8-4.8); Lymphocytes % 8.1 %; Mean Corpuscular HGB Conc 33.2 g/dL (30-55); Mean Corpuscular Hemoglobin 33.3 pg (27-33); Mean Corpuscular Volume 100.3 fl (82-101); Mean Platelet Volume 9.9 fL (7.4-10.4); Monocytes # 1.4 10^3/uL (0.2-0.9); Monocytes % 9.4 %; Neutrophils # 11.29 10^3/uL (1.8-7.7); Neutrophils % 76.4 %; Nucleated Red Blood Cells % 0 %; Platelet Count 354 10^3/cmm (157-399); Red Blood Count 3.06 10^6/uL (3.85-5.65); Red Cell Distribution Width 13.6 % (12.1-15.1); White Blood Count 14.78 10^3/uL (3.29-11.43)
[2024-05-04 05:23] LABS: Alanine Aminotransferase 81 U/L (0-41); Albumin Level 2.6 g/dL (3.5-5.2); Alkaline Phosphatase 63 U/L (40-130); Aspartate Amino Transferase 27 U/L (0-40); Blood Urea Nitrogen 67 mg/dL (6-20); Calcium 7.9 mg/dL (8.5-10.5); Carbon Dioxide 23 mmol/L (22-29); Chloride 99 mmol/L (98-107); Globulin 2.8 g/dL (1.3-4.6); Glomerular Filtration Rate 5.3 mL/min (90-130); Glucose 94 mg/dL (65-115); Magnesium 2.1 mg/dL (1.7-2.3); Osmolality Calculated 305 mOsm/kg (285-295); Sodium 138 mmol/L (136-145); Total Bilirubin 0.3 mg/dL (0.15-1.2); Total Protein 5.4 g/dL (6.6-8.7)
[2024-05-04 05:32] LABS: Creatinine Clr Calc Pharmacy 9.2465
--- NOTE | 2024-05-04 07:49 | PM.PN ---
Subjective Subjective: more lethargic, weak, confused, poor UOP, poor appetite, uremic symptoms. Medications: Reviewed: Yes Medication Review Details: Current Medications Acetaminophen (Acetaminophen 500 Mg Tablet) 1,000 mg PO Q6H PRN PRN Reason: fever Last Admin: 04/27/24 12:33 Dose: 1,000 mg Albuterol/Ipratropium (Ipratropium-Albuterol 3 Ml Neb) 3 ml INHALATION QID.RESPIRATORY ANAY Last Admin: 05/03/24 20:22 Dose: 3 ml Amiodarone HCl (Amiodarone 200 Mg Tablet) 400 mg PO BID ANAY Last Admin: 05/03/24 17:57 Dose: 400 mg Amlodipine Besylate (Amlodipine 10 Mg Tablet) 5 mg PO DAILY ANAY Last Admin: 05/03/24 08:42 Dose: 5 mg Aspirin (Aspirin 81 Mg Ec Tablet) 81 mg PO DAILY ANAY Last Admin: 05/01/24 09:11 Dose: 81 mg Enoxaparin Sodium (Enoxaparin 80 Mg/0.8 Ml Syringe) 80 mg SUBCUT Q24H [facility] Last Admin: 04/27/24 14:48 Dose: 80 mg Folic Acid (Folic Acid 1 Mg Tablet) 1 mg PO DAILY ANAY Last Admin: 05/03/24 08:41 Dose: 1 mg Piperacillin Sod/Tazobactam (Sod 3.375 gm/ Sodium Chloride) 50 mls @ 12.5 mls/hr IV Q12H [facility]; Protocol Last Admin: 05/04/24 01:45 Dose: 12.5 mls/hr Cefepime HCl 1,000 mg/ Sodium (Chloride) 50 mls @ 100 mls/hr IV Q24H [facility]; Protocol Last Infusion: 05/03/24 12:36 Dose: Infused Lanolin (Lanolin Oint 7 Gm) 1 applic TOPICAL PRN PRN PRN Reason: DRYNESS Last Admin: 04/25/24 19:31 Dose: 1 applic Metoprolol Tartrate (Metoprolol Tartrate 25 Mg Tablet) 25 mg PO BID@0900,2100 [facility] Last Admin: 05/03/24 20:43 Dose: 25 mg Multivitamins Therapeutic (Multivitamin Therapeutic Tablet) 1 tab PO DAILY ANAY Last Admin: 05/03/24 08:41 Dose: 1 tab Ondansetron HCl (Ondansetron 2 Mg/Ml Sdv 2 Ml) 4 mg IVP Q6H PRN PRN Reason: NAUSEA AND VOMITING Pantoprazole Sodium (Pantoprazole 40 Mg Sdv) 40 mg IVP Q12H [facility] Last Admin: 05/03/24 17:57 Dose: 40 mg Senna/Docusate Sodium (Sennosides-Docusate Tablet) 2 tab PO BID [facility] Last Admin: 05/03/24 17:57 Dose: 2 tab Sodium Bicarbonate (Sodium Bicarbonate 650 Mg Tablet) 1,300 mg PO TID [facility] Last Admin: 05/03/24 20:43 Dose: 1,300 mg Thiamine Mononitrate (Thiamine 100 Mg Tablet) 100 mg PO DAILY [facility] Last Admin: 05/03/24 08:41 Dose: 100 mg Vitals/I&O/Wt Last Vital Signs Temp 98.2 F 05/04/24 04:48 Pulse 87 05/04/24 06:00 Resp 18 05/04/24 04:48 BP 148/74 05/04/24 04:48 Pulse Ox 93 05/04/24 04:48 O2 Del Method Room Air 05/04/24 04:48 O2 Flow Rate 2 04/30/24 11:16 FiO2 40 04/27/24 23:25 05/03/24 05/04/24 05/04/24 22:59 06:59 14:59 Intake Total 970 / 1980 120 / 2100 Output Total 100 / 100 Balance 870 / 1880 120 / 2000 Weight last 48 hrs Weight 98.033 kg Weight 96.388 kg Weight 93.485 kg Physical Exam Narrative: lying in bed, lethargic, weak, Room air. vss heent- nc/at lung-improving air movement b/l, heart irreg+HSM abd soft, nt, nd, + bs ext - minimal edema neuro- lethargic, weak, responds to pain and voice. no asterixis, moves all extremities Urinary Catheter Management: Pizano: Cath Placed During This Visit: yes, but has since been removed by the nurse Reason for Continuing Indwelling Catheter: Not indwelling catheter Urinary Catheter Date of Insertion: 04/22/24 Urinary Catheter Time of Insertion: 14:20 Date Urinary Catheter Removed: 05/03/24 Time Urinary Catheter Discontinued: 12:30 Data 05/04/24 04:20 05/04/24 04:20 A&P Assessment and plan (1) LISSETTE (acute kidney injury): 59 yr old man 1. pna-per hospitalist- now off of abx 2. NSTEMI 3. LISSETTE - urinalysis noted- w/ wbc, rbc, granular casts- concern for ATN elevated ur na of 53 -no hydronephrosis on renal us - s/p HD x 3 -uop poor-oliguric and rising cr. pizano was removed. check bladder scan and straight cath as needed -if he is not obstructed, then will plan for dialysis and to transfer for a renal biopsy, as his amy + 1:320- same as in 2020- stop hydralazine, can cause false +AMY -negative anca -Negative anti-DNA -hep profile noted Awaiting anti- gbm. +AMY for 3 years. if kidneys do not improve, would recommend a kidney biopsy -other serologies are negative -he consents to renal biopsy and dialysis 4. leukocytosis -per medicine CT w/ multifocal pna d/c dialysis catheter and Pizano catheter 5. hyponatremia and metabolic acidosis improved 6. check abg 7. inc LFT's- likely shocked liver, q from rhabdomyolysis -slowly improving 7. Anemia: Check iron studies and ferritin. 8. Elevated pth= will give a vit d analouge phos binder 9. a fib controlled -hold eliquis as may need a permacath and /or a renal biopsy please ensure all meds are dosed for GFR <10 seen and examined w/ RN- telehealth visit discussed w/ pt, RN Plan see above. Attestations Medical Necessity Statement*: lissette, ams Time Spent in Patient Care: 16 - 35 minutes Coding Level of Care Code Acute Code for [facility] Diagnoses LISSETTE (acute kidney injury) N17.9
[2024-05-04] MEDS: metoprolol tartrate 25 mg Tablet PO ×2 (08:28→20:55)
[2024-05-04] MEDS: sodium bicarbonate 650 mg Tablet PO ×2 (08:28→20:56)
[2024-05-04] MEDS: sennosides-docusate Tablet 2 TAB PO ×2 (08:29→17:45)
[2024-05-04] MEDS: amiodarone 200 mg Tablet 400 MG PO ×2 (08:29→17:44)
[2024-05-04] MEDS: folic acid 1 mg Tablet PO (08:29)
[2024-05-04] MEDS: amlodipine 10 mg Tablet 5 MG PO (08:30)
[2024-05-04] MEDS: pantoprazole 40 mg SDV IVP ×2 (08:31→18:29)
[2024-05-04] MEDS: multivitamin therapeutic Tablet 1 TAB PO (08:31)
[2024-05-04] MEDS: thiamine 100 mg Tablet PO (08:31)
[2024-05-04] MEDS: cefepime 1,000 MG in sodium chloride 0.9% (plus) 50 ML 100 MG IV (11:21)
--- NOTE | 2024-05-04 11:32 | P.TS_ITS ---
Transfer Summary Providers Date of Admission: 04/22/24 11:34 Date of Discharge/Transfer: 05/04/24 Attending Provider at Admission: Remington Pettit MD Attending Provider at Transfer: Remington Pettit MD Primary Care Provider: Barbi Mendenhall MD Transfer Plans: Anticipated date of transfer: 05/04/24 . Diagnoses at Discharge Discharge Diagnosis (1) LISSETTE (acute kidney injury): Status: Acute Reason for Visit Reason for Visit fall Hospital Course Hospital Course 59-year male with who was admitted for management evaluation of non-STEMI, sepsis related to pneumonia, patient developed septic shock required ICU, developed ATN, temporal dialysis catheter was placed, patient required dialysis x 6 during hospitalization, decision was made to pursue renal biopsy, 05/04 permacath dialysis catheter placed by Dr. Macdonald, cultures remain negative, patient's leukocytosis started trending down with use of IV antibiotics, CT scan of chest showed resolution of pneumonia patient developed multifocal pneumonia, respiratory panel negative, sputum culture showed yeast infection, Eva albicans most likely normal antoinette of respiratory tract, patient carry history of reduced ejection fraction status post AICD, his EF has improved cardiomyopathy improved, no plan for angiogram as per cardiology, patient has been accepted by [facility] for renal biopsy on telemetry medical floor. Accepting doctor is Dr. Ibarra, hospitalist, patient has positive JESSICA antibodies, double-stranded DNA antibodies are negative, White count on 05/04 is 14,000, hemoglobin 10.2, creatinine is 10, patient is james guric, potassium 4.0, bicarb 23, Positive JESSICA antibodies, nuclear homogenous pattern noted, glomerular basement membrane antibodies are pending, ANCA titer negative JESSICA pattern positive, JESSICA titer 1 :320 Physical Exam Narrative: Awake and alert Euvolemic GCS 15 Right arm PICC line in place Right groin temperatures catheter has been removed Ramirez catheter has been removed GCS 15 Nonfocal exam Pleasant cooperative Maller rash present Urinary Catheter Management: Ramirez: Cath Placed During This Visit: yes, but has since been removed by the nurse Reason for Continuing Indwelling Catheter: Not indwelling catheter Urinary Catheter Date of Insertion: 04/22/24 Urinary Catheter Time of Insertion: 14:20 Date Urinary Catheter Removed: 05/03/24 Time Urinary Catheter Discontinued: 12:30 TS Data Studies Completed and Pending Pending at discharge Category Date Time Status Basic Metabolic Panel AM LABS Lab 05/05/24 04:00 Ordered Complete Blood Count w/Auto AM LABS Lab 05/05/24 04:00 Ordered Complete Blood Count w/Auto AM LABS Lab 05/06/24 04:00 Ordered Complete Blood Count w/Auto AM LABS Lab 05/07/24 04:00 Ordered Comprehensive Metabolic Panel AM LABS Lab 05/05/24 04:00 Ordered Comprehensive Metabolic Panel AM LABS Lab 05/06/24 04:00 Ordered Comprehensive Metabolic Panel AM LABS Lab 05/07/24 04:00 Ordered Ferritin Routine Lab 05/04/24 04:20 Received Glomerular Basement AB IGG Stat Lab 05/02/24 09:29 Received Magnesium AM LABS Lab 05/05/24 04:00 Ordered Magnesium AM LABS Lab 05/06/24 04:00 Ordered Magnesium AM LABS Lab 05/07/24 04:00 Ordered Phosphorus AM LABS Lab 05/05/24 04:00 Ordered Phosphorus AM LABS Lab 05/06/24 04:00 Ordered Phosphorus AM LABS Lab 05/07/24 04:00 Ordered Total Iron Binding Capacity Routine Lab 05/04/24 04:20 Received Completed Studies During Hospitalization Category Date Time Status CT cervical spin wo con* 13194 Stat Cat Scan 04/22/24 09:[address] chest wo con 73016 Routine Cat Scan 05/01/24 10:[address] chest wo con [id number] Stat Cat Scan 04/26/24 13:[address] head wo con* [id number] Stat Cat Scan 04/22/24 09:45 Completed CXRP [XR chest 1V portable [id number]] Stat Exams 04/23/24 12:46 Completed XR chest 1V portable [id number] Routine Exams 04/23/24 08:01 Completed XR chest 1V portable [id number] Routine Exams 04/24/24 04:00 Completed XR chest 1V portable [id number] Routine Exams 04/25/24 06:00 Completed XR chest 1V portable [id number] Routine Exams 04/26/24 04:00 Completed XR chest 1V portable [id number] Stat Exams 04/22/24 09:45 Completed XR chest 1V portable [id number] Stat Exams 04/22/24 20:02 Completed CV echo complete* [id number] Routine Ultrasound 04/22/24 14:50 Completed US renal BI* [id number] Routine Ultrasound 04/24/24 06:44 Completed Laboratory Last Values WBC 14.78 10^3/uL (3.29-11.43) H 05/04/24 04:20 RBC 3.06 10^6/uL (3.85-5.65) L 05/04/24 04:20 Hgb 10.20 g/dL (11.27-16.99) L 05/04/24 04:20 Hct 30.7 % (37-53) L 05/04/24 04:20 MCV 100.3 fl (82-101) 05/04/24 04:20 MCH 33.3 pg (27-33) H 05/04/24 04:20 MCHC 33.2 g/dL (30-55) 05/04/24 04:20 RDW 13.6 % (12.1-15.1) 05/04/24 04:20 Plt Count 354 10^3/cmm (157-399) 05/04/24 04:20 MPV 9.9 fL (7.4-10.4) 05/04/24 04:20 Neut % (Auto) 76.4 % 05/04/24 04:20 Lymph % (Auto) 8.1 % 05/04/24 04:20 Dawson % (Auto) 9.4 % 05/04/24 04:20 Eos % (Auto) 1.5 % 05/04/24 04:20 Baso % (Auto) 0.3 % 05/04/24 04:20 Neut # (Auto) 11.29 10^3/uL (1.8-7.7) H 05/04/24 04:20 Lymph # (Auto) 1.2 10^3/uL (0.8-4.8) 05/04/24 04:20 Dawson # (Auto) 1.4 10^3/uL (0.2-0.9) H 05/04/24 04:20 Eos # (Auto) 0.2 10^3/uL (0.0-0.8) 05/04/24 04:20 Baso # (Auto) 0.0 10^3/uL (0.0-0.1) 05/04/24 04:20 Nucleated RBC % (auto) 0 % 05/04/24 04:20 Total Counted 100 (0-100) 04/28/24 04:33 Atypical Lymphs % Not Reportable 04/28/24 04:33 Segmented Neutrophils 78 % 04/28/24 04:33 Abs Segm Neuts (Man) 11.9 10/cmm (1.6-7.1) H 04/28/24 04:33 Band Neutrophils Not Reportable 04/28/24 04:33 Lymphocytes (Manual) 9 % 04/28/24 04:33 Monocytes (Manual) 7.0 % 04/28/24 04:33 Absolute Monocytes 1.1 10^3/cmm (0.1-0.6) H 04/28/24 04:33 Eosinophils (Manual) 2 % 04/28/24 04:33 Absolute Eosinophils 0.3 10^3/cmm (0.0-0.7) 04/28/24 04:33 Basophils (Manual) 0.0 % 04/28/24 04:33 Absolute Basophils 0.0 10^3/cmm (0.0-0.2) 04/28/24 04:33 Myelocytes 4.0 % 04/28/24 04:33 Nucleated RBCs # 0.0 /100WBC 05/04/24 04:20 Platelet Estimate Normal (Normal) 04/28/24 04:33 PT 19.40 SECONDS (12.1-14.9) H 04/22/24 09:57 INR 1.58 (0.8-1.2) H 04/22/24 09:57 Specimen Type Arterial 04/24/24 04:22 Sample Site Radial, right 04/24/24 04:22 ABG pH 7.42 (7.35-7.45) 04/24/24 04:22 ABG pCO2 26.0 mmHg (35-45) L 04/24/24 04:22 ABG pO2 70.0 mmHg (80.0-100.0) L 04/24/24 04:22 ABG PO2/FiO2 Ratio 0 04/24/24 04:22 ABG HCO3 17.0 mmol/L (22-26) L 04/24/24 04:22 ABG O2 Saturation 95.5 04/24/24 04:22 ABG Base Excess -5.8 mmol/L (-2.0-2.0) L 04/24/24 04:22 [facility] Test Pos 04/24/24 04:22 A-a O2 Gradient 5.7 mmHg (5-10) 04/24/24 04:22 Hematocrit 40.1 % (42-52) L 04/24/24 04:22 Hgb O2 Saturation 93.9 % (95-100) L 04/24/24 04:22 Carboxyhemoglobin 1.1 %THgb (0.4-20.1) 04/24/24 04:22 Methemoglobin 0.6 % (0.4-1.5) 04/24/24 04:22 Total Hemoglobin 13.1 g/dL (14-18) L 04/24/24 04:22 Sodium 130.0 mmol/L (131-143) L 04/24/24 04:22 Potassium 3.5 mmol/L (3.5-5.0) 04/24/24 04:22 Glucose 174.0 mg/dL (70-115) H 04/24/24 04:22 Ionized Calcium 1.0 mmol/L (1.1-1.4) L 04/24/24 04:22 O2 Delivery Device Bipap 04/24/24 04:22 FiO2 21.0 % 04/24/24 04:22 Tool Procurement Coordinator ID Quinn 04/24/24 04:22 Sodium 138 mmol/L (136-145) 05/04/24 04:20 Potassium 4.0 mmol/L (3.5-5.1) 05/04/24 04:20 Chloride 99 mmol/L (98-107) 05/04/24 04:20 Carbon Dioxide 23 mmol/L (22-29) 05/04/24 04:20 Anion Gap 20.0 (5-19) H 05/04/24 04:20 BUN 67 mg/dL (6-20) H 05/04/24 04:20 Creatinine 10.1 mg/dL (0.7-1.2) H* 05/04/24 04:20 GFR Calculation 5.3 mL/min (90-130) L 05/04/24 04:20 Glucose 94 mg/dL (65-115) 05/04/24 04:20 Calculated Osmolality 305 mOsm/kg (285-295) H 05/04/24 04:20 Lactic Acid 1.6 mmol/L (0.5-2.2) 04/23/24 03:15 Lactic Acid (Sepsis) 1.7 mmol/L (0.5-2.2) 04/22/24 13:38 Uric Acid 11.7 mg/dL (3.4-7.0) H 04/23/24 20:21 Calcium 7.9 mg/dL (8.5-10.5) L 05/04/24 04:20 Phosphorus 5.0 mg/dL (2.5-4.5) H 05/04/24 04:20 Magnesium 2.1 mg/dL (1.7-2.3) 05/04/24 04:20 Total Bilirubin 0.3 mg/dL (0.15-1.2) 05/04/24 04:20 AST 27 U/L (0-40) 05/04/24 04:20 ALT 81 U/L (0-41) H 05/04/24 04:20 Alkaline Phosphatase 63 U/L (40-130) 05/04/24 04:20 Creatine Kinase 949 U/L (39-308) H* 04/30/24 05:03 Troponin T Baseline 114 ng/L (0-15) H* 04/22/24 09:57 Troponin T 120 Minute 79.37 ng/L (0-15) H 04/22/24 12:21 Delta Troponin T -34.63 ABS# (0-10) L 04/22/24 12:21 Troponin T Hi Sens 6Hr 63.95 ng/L (0-15) H 04/22/24 15:40 Troponin T Hi Sens 6Hr Delta -50.05 ng/L (0-12) L 04/22/24 15:40 C-Reactive Protein 267.0 mg/L (0.0-4.9) H 04/25/24 04:58 NT-Pro-B Natriuret Pep 2345 pg/mL (0-125) H 04/24/24 04:17 Total Protein 5.4 g/dL (6.6-8.7) L 05/04/24 04:20 Albumin 2.6 g/dL (3.5-5.2) L 05/04/24 04:20 Globulin 2.8 g/dL (1.3-4.6) 05/04/24 04:20 25-OH Vitamin D Total 25 ng/mL (30-100) L 04/24/24 04:17 Procalcitonin > 100.00 ng/mL (0-0.5) H 04/25/24 04:58 TSH 1.93 uIU/mL (0.27-4.20) 04/23/24 20:21 PTH Intact 324.8 pg/mL (15-65) H 04/23/24 20:21 Calcium (PTH Intact) 5.0 mg/dL (8.5-10.5) L* 04/23/24 20:21 Random Cortisol 25.40 ug/dL (2.47-19.5) H 04/24/24 04:17 Urine Color Yellow (Yellow) 04/30/24 15:47 Urine Appearance Clear (CLEAR) 04/30/24 15:47 Urine pH 5 (5-7) 04/30/24 15:47 Ur Specific [place] 1.015 (1.005-1.030) 04/30/24 15:47 Urine Protein 1+ (Negative) H 04/30/24 15:47 Urine Glucose (UA) Norm (Normal) 04/30/24 15:47 Urine Ketones Negative (Negative) 04/30/24 15:47 Urine Blood 3+ (Negative) H 04/30/24 15:47 Urine Nitrate Negative (Negative) 04/30/24 15:47 Urine Bilirubin Neg (Negative) 04/30/24 15:47 Urine Urobilinogen Norm mg/dL (Negative) 04/30/24 15:47 Ur Leukocyte Esterase Negative (Negative) 04/30/24 15:47 Urine RBC 5-10 /hpf (0-2) H 04/30/24 15:47 Urine WBC 0-4 /hpf (0-5) H 04/30/24 15:47 Ur Squamous Epith Cells None /hpf (0-5) 04/30/24 15:47 Amorphous Sediment Not Reportable 04/30/24 15:47 Urine Bacteria 1+ /hpf (NONE) H 04/30/24 15:47 Hyaline Casts 0-4 /lpf H 04/23/24 18:32 Coarse Granular Casts 0-4 /lpf H 04/23/24 18:32 Urine Mucus 1+ /hpf 04/23/24 18:32 U Random Total Protein 72 mg/dL 04/30/24 15:47 Ur Random Sodium 33 mmol/L 04/30/24 15:47 Ur Random Potassium 13 mmol/L 04/30/24 15:47 Ur Random Chloride 19 mmol/L 04/30/24 15:47 Urine Creatinine 48 mg/dL (39-259) 04/30/24 15:47 Vancomycin Trough 15.7 ug/mL (10-15) H 04/26/24 06:54 Random Vancomycin 12.3 ug/mL (20.0-40.0) L 04/27/24 04:27 JESSICA Screen Positive (NEGATIVE) A 04/23/24 20:21 JESSICA Titer 1:320 titer H 04/23/24 20:21 JESSICA Pattern Nuclear, homogeneous A 04/23/24 20:21 ANCA Screen Negative (NEGATIVE) 04/23/24 20:21 ANCA Titer Not Reportable 04/23/24 20:21 Anti-ds DNA IgG Ab <1 IU/mL 05/01/24 13:12 C. difficile (PCR) Negative (Negative) 04/25/24 20:43 Hep Bs Antigen Non-reactive (Nonreactive) 04/24/24 04:17 Hep Bs Antibody 21.9 (11.5-1000) 04/24/24 04:17 Hepatitis C Antibody Non-reactive (Nonreactive) 04/24/24 04:17 MRSA (PCR) Not detected (NOT DETECTED) 04/23/24 19:30 Radiology Impressions Cervical Spine CT 04/22/24 09:45 IMPRESSION: 1. No acute cervical spine fracture. 2. Multilevel areas of foraminal and central stenosis as above. 3. Incompletely visualized consolidation in the LEFT upper lobe. There is also an abnormality on the recent radiograph performed. Differential includes pneumonia, pulmonary contusion or neoplasm. Recommend chest CT with contrast follow-up. Head CT 04/22/24 09:45 IMPRESSION: 1. No acute intracranial hemorrhage or edema. 2. Very minimal age-related atrophy and small vessel disease. Renal Ultrasound 04/24/24 06:44 IMPRESSION: 1. No hydronephrosis. 2. Mildly increased bilateral cortical echogenicity, suggestive of medical renal disease. Chest X-Ray 04/26/24 04:00 IMPRESSION: No significant changes on exam. Chest CT 05/01/24 10:01 IMPRESSION: Improving large consolidative opacity in the left upper lobe. Improving scattered patchy opacities throughout the bilateral lungs. These findings are consistent with improving multifocal pneumonia. Recent Clincial Data Last Vital Signs Temp 98.1 F 05/04/24 09:00 Pulse 80 05/04/24 09:00 Resp 20 H 05/04/24 09:00 BP 163/80 05/04/24 09:00 Pulse Ox 91 05/04/24 09:00 O2 Del Method Room Air 05/04/24 09:00 O2 Flow Rate 2 04/30/24 11:16 FiO2 40 04/27/24 23:25 Vital Signs Temp Pulse Resp BP Pulse Ox O2 Del Method 05/04/24 09:00 98.1 F 80 20 H 163/80 91 Room Air 05/04/24 06:00 87 05/04/24 04:48 98.2 F 82 18 148/74 93 Room Air 05/04/24 01:00 98.3 F 80 18 164/79 92 Room Air Intake & Output/Weight 05/02/24 05/03/24 05/04/24 05/05/24 06:59 06:59 06:59 06:59 Intake Total 990 / 990 2049 / 2049 2099 / 2099 410 / 410 Output Total 850 / 850 1506 / 1506 100 / 100 100 / 100 Balance 140 / 140 544 / 544 1999 / 1999 310 / 310 Weight 93.984 kg 96.388 kg 98.033 kg Vitals Last Vital Signs Temp 98.1 F 05/04/24 09:00 Pulse 80 05/04/24 09:00 Resp 20 H 05/04/24 09:00 BP 163/80 05/04/24 09:00 Pulse Ox 91 05/04/24 09:00 O2 Del Method Room Air 05/04/24 09:00 O2 Flow Rate 2 04/30/24 11:16 FiO2 40 04/27/24 23:25 TS Medications Medications Acetaminophen (Acetaminophen 500 Mg Tablet) 1,000 mg PO Q6H PRN PRN Reason: fever Last Admin: 04/27/24 12:33 Dose: 1,000 mg Albuterol/Ipratropium (Ipratropium-Albuterol 3 Ml Neb) 3 ml INHALATION Q ID.RESPIRATORY PRN PRN Reason: Shortness Of Breath Amiodarone HCl (Amiodarone 200 Mg Tablet) 400 mg PO BID [facility] Last Admin: 05/04/24 08:29 Dose: 400 mg Amlodipine Besylate (Amlodipine 10 Mg Tablet) 5 mg PO DAILY [facility] Last Admin: 05/04/24 08:30 Dose: 5 mg Aspirin (Aspirin 81 Mg Ec Tablet) 81 mg PO DAILY [facility] Last Admin: 05/01/24 09:11 Dose: 81 mg Enoxaparin Sodium (Enoxaparin 80 Mg/0.8 Ml Syringe) 80 mg SUBCUT Q24H [facility] Last Admin: 04/27/24 14:48 Dose: 80 mg Folic Acid (Folic Acid 1 Mg Tablet) 1 mg PO DAILY [facility] Last Admin: 05/04/24 08:29 Dose: 1 mg Piperacillin Sod/Tazobactam (Sod 3.375 gm/ Sodium Chloride) 50 mls @ 12.5 mls/hr IV Q12H [facility]; Protocol Last Infusion: 05/04/24 10:13 Dose: Infused Cefepime HCl 1,000 mg/ Sodium (Chloride) 50 mls @ 100 mls/hr IV Q24H [facility]; Protocol Last Admin: 05/04/24 11:21 Dose: 100 mls/hr Lanolin (Lanolin Oint 7 Gm) 1 applic TOPICAL PRN PRN PRN Reason: DRYNESS Last Admin: 04/25/24 19:31 Dose: 1 applic Metoprolol Tartrate (Metoprolol Tartrate 25 Mg Tablet) 25 mg PO BID@0900,2100 [facility] Last Admin: 05/04/24 08:28 Dose: 25 mg Multivitamins Therapeutic (Multivitamin Therapeutic Tablet) 1 tab PO DAILY [facility] Last Admin: 05/04/24 08:31 Dose: 1 tab Ondansetron HCl (Ondansetron 2 Mg/Ml Sdv 2 Ml) 4 mg IVP Q6H PRN PRN Reason: NAUSEA AND VOMITING Pantoprazole Sodium (Pantoprazole 40 Mg Sdv) 40 mg IVP Q12H [facility] Last Admin: 05/04/24 08:31 Dose: 40 mg Senna/Docusate Sodium (Sennosides-Docusate Tablet) 2 tab PO BID [facility] Last Admin: 05/04/24 08:29 Dose: 2 tab Sodium Bicarbonate (Sodium Bicarbonate 650 Mg Tablet) 650 mg PO TID [facility] Last Admin: 05/04/24 08:28 Dose: 650 mg Thiamine Mononitrate (Thiamine 100 Mg Tablet) 100 mg PO DAILY [facility] Last Admin: 05/04/24 08:31 Dose: 100 mg Discontinued Medications Acetaminophen (Acetaminophen 500 Mg Tablet) 500 mg PO Q4H PRN PRN Reason: fever Albuterol/Ipratropium (Ipratropium-Albuterol 3 Ml Neb) 3 ml INHALATION Q6H PRN PRN Reason: SHORTNESS OF BREATH Albuterol/Ipratropium (Ipratropium-Albuterol 3 Ml Neb) 3 ml INHALATION Q4H [facility] Last Admin: 04/23/24 11:19 Dose: 3 ml Albuterol/Ipratropium (Ipratropium-Albuterol 3 Ml Neb) 3 ml INHALATION Q4H.RESPIRATORY [facility] Last Admin: 05/02/24 04:19 Dose: 3 ml Albuterol/Ipratropium (Ipratropium-Albuterol 3 Ml Neb) 3 ml INHALATION QID.RESPIRATORY [facility] Last Admin: 05/04/24 08:38 Dose: Not Given Amlodipine Besylate (Amlodipine 5 Mg Tablet) 5 mg PO DAILY [facility] Last Admin: 04/22/24 17:47 Dose: 5 mg Amlodipine Besylate (Amlodipine 10 Mg Tablet) 10 mg PO DAILY [facility] Last Admin: 05/01/24 09:11 Dose: 10 mg Amoxicillin/Clavulanate Potassium (Amoxicillin-Clav 875-125 Mg Tablet) 1 tab PO BID [facility]; Protocol Last Admin: 05/01/24 09:06 Dose: 1 tab Aspirin (Aspirin 325 Mg Ec Tablet) 325 mg PO ONCE ONE Stop: 04/22/24 12:01 Last Admin: 04/22/24 14:13 Dose: Not Given Aspirin (Aspirin 325 Mg Ec Tablet) 325 mg PO ONCE ONE Stop: 04/22/24 14:16 Last Admin: 04/22/24 14:20 Dose: 325 mg Budesonide (Budesonide 0.5 Mg/2 Ml Neb) 0.5 mg INHALATION BID.RESPIRATORY [facility] Last Admin: 04/30/24 08:23 Dose: 0.5 mg Calcium Carbonate (Calcium Carbonate 500 Mg Chew Tablet) 1,250 mg PO TID [facility] Last Admin: 04/26/24 21:12 Dose: 1,250 mg Calcium Gluconate (Calcium Gluconate 0.1 Gm/Ml 10% Sdv 10ml) 1 gm IVP ONCE ONE Stop: 04/23/24 21:12 Last Admin: 04/23/24 22:08 Dose: 1 gm Clopidogrel Bisulfate (Clopidogrel 75 Mg Tablet) 75 mg PO DAILY [facility] Last Admin: 04/25/24 08:11 Dose: 75 mg Clopidogrel Bisulfate (Clopidogrel 300 Mg Tablet) 300 mg PO ONCE ONE Stop: 04/22/24 12:01 Last Admin: 04/22/24 14:13 Dose: Not Given Clopidogrel Bisulfate (Clopidogrel 300 Mg Tablet) 300 mg PO ONCE ONE Stop: 04/22/24 14:16 Last Admin: 04/22/24 14:20 Dose: 300 mg Diltiazem HCl (Diltiazem 5 Mg/Ml Sdv 5 Ml) 10 mg IVP ONCE ONE Stop: 04/22/24 09:46 Last Admin: 04/22/24 10:01 Dose: 10 mg Doxycycline Monohydrate (Doxycycline 100 Mg Tablet) 100 mg PO BID [facility]; Protocol Last Admin: 04/22/24 17:47 Dose: 100 mg Fluconazole (Fluconazole 100 Mg Tablet) 100 mg PO ONCE ONE Stop: 04/30/24 12:00 Last Admin: 04/30/24 12:16 Dose: 100 mg Folic Acid (Folic Acid 1 Mg Tablet) 1 mg PO DAILY [facility] Furosemide (Furosemide 10 Mg/Ml Sdv 10ml) 60 mg IVP ONCE ONE Stop: 04/22/24 20:03 Last Admin: 04/22/24 20:11 Dose: 60 mg Furosemide (Furosemide 10 Mg/Ml Sdv 10ml) 80 mg IVP ONCE ONE Stop: 04/23/24 08:48 Last Admin: 04/23/24 09:27 Dose: 80 mg Furosemide (Furosemide 10 Mg/Ml Sdv 10ml) 100 mg IVP ONCE ONE Stop: 04/23/24 16:43 Last Admin: 04/23/24 17:21 Dose: 100 mg Furosemide (Furosemide 10 Mg/Ml Sdv 10ml) 100 mg IVP ONCE ONE Stop: 04/24/24 07:02 Last Admin: 04/24/24 08:12 Dose: 100 mg Furosemide (Furosemide 10 Mg/Ml Sdv 10ml) 60 mg IVP ONCE ONE Stop: 04/26/24 08:21 Last Admin: 04/26/24 08:50 Dose: 60 mg Furosemide (Furosemide 10 Mg/Ml Sdv 10ml) 60 mg IVP Q12H [facility] Last Admin: 04/29/24 08:10 Dose: 60 mg Heparin Sodium (Porcine) (Heparin, Porcine 1,000 Unit/Ml Inj 10 Ml) 1,000 unit IV ONCE ONE Stop: 04/24/24 07:33 Last Admin: 04/24/24 10:08 Dose: 1,000 unit Heparin Sodium (Porcine) (Heparin, Porcine 1,000 Unit/Ml Inj 10 Ml) 1,000 unit IV ONCE ONE Stop: 04/25/24 07:01 Last Admin: 04/25/24 11:52 Dose: 1,000 unit Heparin Sodium (Porcine) (Heparin, Porcine 1,000 Unit/Ml Inj 10 Ml) 1,000 unit IV ONCE ONE Stop: 04/25/24 12:16 Last Admin: 04/25/24 15:15 Dose: Not Given Heparin Sodium (Porcine) (Heparin 5,000 Unit/Ml Inj 1 Ml) 5,000 unit SUBCUT Q12H [facility] Last Admin: 04/27/24 02:10 Dose: 5,000 unit Heparin Sodium (Porcine) (Heparin, Porcine 1,000 Unit/Ml Inj 10 Ml) 1,000 unit IV ONCE ONE Stop: 04/28/24 07:17 Last Admin: 04/28/24 12:32 Dose: 1,000 unit Heparin Sodium (Porcine) (Heparin, Porcine 1,000 Unit/Ml Inj 10 Ml) 1,000 unit IV ONCE ONE Stop: 05/02/24 08:01 Last Admin: 05/02/24 10:55 Dose: 1,000 unit Heparin Sodium (Porcine) (Heparin, Porcine 1,000 Unit/Ml Inj 10 Ml) 1,000 unit IV ONCE ONE Stop: 05/04/24 08:00 Hydralazine HCl (Hydralazine 20 Mg/Ml Inj 1 Ml) 5 mg IVP Q4H PRN PRN Reason: bp>180/90 Last Admin: 04/23/24 06:18 Dose: 5 mg Hydralazine HCl (Hydralazine 25 Mg Tablet) 25 mg PO BID [facility] Last Admin: 04/30/24 17:02 Dose: 25 mg Hydralazine HCl (Hydralazine 20 Mg/Ml Inj 1 Ml) 5 mg IVP Q4H PRN PRN Reason: bp>180/100 Sodium Chloride (Sodium Chloride 0.9%) 1,000 mls @ 999 mls/hr IV .Q1H1M ONE Stop: 04/22/24 10:45 Last Infusion: 04/22/24 11:36 Dose: Infused Azithromycin 500 mg/ Sodium (Chloride) 250 mls @ 250 mls/hr IV ONCE ONE; Protocol Stop: 04/22/24 11:05 Last Infusion: 04/22/24 13:36 Dose: Infused Ceftriaxone Sodium 1,000 mg/ (Sodium Chloride) 50 mls @ 100 mls/hr IV ONCE ONE; Protocol Stop: 04/22/24 10:35 Last Infusion: 04/22/24 11:36 Dose: Infused Amiodarone HCl/Dextrose (Nexterone) 150 mg in 100 mls @ 400 mls/hr IV ONCE ONE Stop: 04/22/24 10:35 Last Infusion: 04/22/24 11:05 Dose: Infused Amiodarone HCl/Dextrose (Nexterone) 360 mg in 200 mls @ 0 mls/hr IV .Q0M [facility]; Protocol Last Titration: 04/25/24 09:43 Dose: Infused Sodium Chloride (Sodium Chloride 0.9%) 1,000 mls @ 999 mls/hr IV .Q1H1M ONE Stop: 04/22/24 11:27 Last Infusion: 04/22/24 13:36 Dose: Infused Sodium Chloride (Sodium Chloride 0.9%) 500 mls @ 999 mls/hr IV .Q31M ONE Stop: 04/22/24 11:08 Last Infusion: 04/22/24 11:36 Dose: Infused Ceftriaxone Sodium 1,000 mg/ (Sodium Chloride) 50 mls @ 100 mls/hr IV DAILY [facility]; Protocol Acetaminophen (Acetaminophen) 1,000 mg in 100 mls @ 400 mls/hr IV ONCE ONE Stop: 04/22/24 20:56 Last Infusion: 04/22/24 21:21 Dose: Infused Sodium Chloride (Sodium Chloride 0.9%) 500 mls @ 999 mls/hr IV .Q31M ONE Stop: 04/23/24 03:40 Last Infusion: 04/23/24 04:00 Dose: Infused Sodium Bicarbonate 150 meq/ (Dextrose) 1,150 mls @ 100 mls/hr IV .[id number] [facility] Last Infusion: 04/24/24 19:00 Dose: Infused Dextrose (D5w) Confirm Administered Dose 1,000 mls @ as directed .ROUTE .STK-MED ONE Stop: 04/23/24 03:38 Piperacillin Sod/Tazobactam (Sod 3.375 gm/ Sodium Chloride) 50 mls @ 12.5 mls/hr IV Q8H [facility] Last Infusion: 04/24/24 11:32 Dose: Infused Vancomycin HCl 1,000 mg/ (Sodium Chloride) 250 mls @ 250 mls/hr IV Q24H ANAY Last Infusion: 04/24/24 09:35 Dose: Infused Sodium Chloride (Sodium Chloride 0.9%) 500 mls @ 999 mls/hr IV .Q31M ONE Stop: 04/23/24 04:32 Last Infusion: 04/23/24 04:55 Dose: Infused Vancomycin/PEG/NADA/Lysine/Water (Vancocin) 1,500 mg in 300 mls @ 150 mls/hr IV ONCE ONE Stop: 04/23/24 09:29 Last Infusion: 04/23/24 09:42 Dose: Infused Doxycycline Hyclate 100 mg/ (Sodium Chloride) 100 mls @ 100 mls/hr IV Q12H ANAY; Protocol Last Infusion: 04/27/24 09:26 Dose: Infused Thiamine HCl 500 mg/ Sodium (Chloride) 105 mls @ 210 mls/hr IV DAILY ANAY Stop: 04/26/24 08:59 Last Infusion: 04/24/24 09:35 Dose: Infused Acetaminophen (Acetaminophen) 1,000 mg in 100 mls @ 400 mls/hr IV Q8H PRN PRN Reason: Fever Stop: 04/24/24 00:14 Last Infusion: 04/23/24 08:31 Dose: Infused Dexmedetomidine/Sodium Chloride (Precedex) 400 mcg in 100 mls @ 0 mls/hr IV .Q0M ANAY; Protocol Last Titration: 04/25/24 19:00 Dose: Infused norepinephrine (Levophed) 4 mg in 250 mls @ 0 mls/hr IV .Q0M ANAY; Protocol Last Titration: 04/24/24 19:00 Dose: Infused Cefepime HCl 1,000 mg/ Sodium (Chloride) 50 mls @ 100 mls/hr IV Q12H ANAY; Protocol Last Infusion: 04/28/24 02:09 Dose: Infused Dextrose (D5w) Confirm Administered Dose 1,000 mls @ as directed .ROUTE .STK-MED ONE Stop: 04/24/24 01:16 Last Admin: 04/24/24 01:35 Dose: Not Given Vancomycin HCl 1,000 mg/ (Sodium Chloride) 250 mls @ 250 mls/hr IV Q48H [facility]NA[facility] Cefepime HCl 1,000 mg/ Sodium (Chloride) 50 mls @ 100 mls/hr IV Q12H ANAY; Protocol Last Infusion: 05/01/24 12:07 Dose: Infused Lisinopril (Lisinopril 10 Mg Tablet) 10 mg PO DAILY [facility] Last Admin: 04/22/24 17:47 Dose: 10 mg Lorazepam (Lorazepam 2 Mg Tablet) 2 mg PO Q4H PRN; Protocol PRN Reason: WITHDRAWAL Lorazepam (Lorazepam 2 Mg/Ml Inj 10 Ml Mdv) 2 mg IM Q4H PRN; Protocol PRN Reason: ALCOHOL WITHDRAWAL Lorazepam (Lorazepam 2 Mg/Ml Inj 10 Ml Mdv) 2 mg IVP PRN PRN; Protocol PRN Reason: WITHDRAWAL Last Admin: 04/24/24 03:17 Dose: 2 mg Magnesium Oxide (Magnesium Oxide 400 Mg Tablet) 400 mg PO BID [facility] Last Admin: 04/22/24 17:47 Dose: 400 mg Magnesium Oxide (Magnesium Oxide 400 Mg Tablet) 400 mg PO DAILY [facility] Methylprednisolone Sodium Succinate (Methylprednisolone Sod Succ 125 Mg/2 Ml Inj) 125 mg IVP ONCE ONE Stop: 04/23/24 07:56 Last Admin: 04/23/24 08:11 Dose: 125 mg Methylprednisolone Sodium Succinate (Methylprednisolone Sod Succ 40 Mg/Ml Inj) 40 mg IVP Q6H [facility] Last Admin: 04/26/24 13:41 Dose: 40 mg Metoprolol Tartrate (Metoprolol Tartrate 25 Mg Tablet) 25 mg PO DAILY [facility] Multivitamins Therapeutic (Multivitamin Therapeutic Tablet) 1 tab PO DAILY [facility] Paricalcitol (Paricalcitol 2 Mcg/Ml Sdv 1 Ml) 2 mcg IV ONCE ONE Stop: 04/24/24 07:33 Last Admin: 04/24/24 10:34 Dose: 2 mcg Paricalcitol (Paricalcitol 2 Mcg/Ml Sdv 1 Ml) 2 mcg IV ONCE ONE Stop: 05/04/24 08:00 Senna/Docusate Sodium (Sennosides-Docusate Tablet) 1 tab PO DAILY [facility] Sevelamer Carbonate (Sevelamer 800 Mg Tablet) 800 mg PO TID [facility] Last Admin: 04/29/24 08:10 Dose: 800 mg Sodium Bicarbonate (Sodium Bicarbonate 8.4% 1 Meq/Ml 50ml Syr) Confirm Administered Dose 150 meq .ROUTE .STK-MED ONE Stop: 04/23/24 03:32 Last Admin: 04/23/24 03:53 Dose: Not Given Sodium Bicarbonate (Sodium Bicarbonate 1 Meq/Ml Sdv 50ml) Confirm Administered Dose 150 meq .ROUTE .STK-MED ONE Stop: 04/23/24 03:35 Sodium Bicarbonate (Sodium Bicarbonate 1 Meq/Ml Sdv 50ml) Confirm Administered Dose 150 meq .ROUTE .STK-MED ONE Stop: 04/24/24 01:14 Last Admin: 04/24/24 01:35 Dose: Not Given Sodium Bicarbonate (Sodium Bicarbonate 650 Mg Tablet) 650 mg PO TID [facility] Last Admin: 04/29/24 08:10 Dose: 650 mg Sodium Bicarbonate (Sodium Bicarbonate 650 Mg Tablet) 1,300 mg PO TID [facility] Last Admin: 05/03/24 20:43 Dose: 1,300 mg Thiamine HCl (Thiamine 100 Mg/Ml Sdv) 100 mg IM ONCE ONE Stop: 04/22/24 17:31 Last Admin: 04/22/24 17:47 Dose: 100 mg Thiamine Mononitrate (Thiamine 100 Mg Tablet) 100 mg PO DAILY [facility] Trazodone HCl (Trazodone 50 Mg Tablet) 25 mg PO ONCE ONE Stop: 04/27/24 21:20 Last Admin: 04/27/24 21:35 Dose: 25 mg Allergies No Known Allergies Allergy (Verified 12/29/23 08:55) Home Medications multivitamin (Multiple Vitamins tablet) 1 tab PO DAILY 09/19/20 [History Confirmed 04/22/24] apixaban 5 mg tablet (Eliquis) 5 mg PO BID #60 tabs 10/06/20 [Rx Confirmed 04/22/24] glucometer testing kit #1 ea 04/28/21 [Rx Confirmed 04/23/24] furosemide 40 mg tablet 40 mg PO DAILY 05/02/21 [History Confirmed 04/22/24] lisinopril 10 mg tablet 5 mg PO DAILY 09/10/22 [History Confirmed 04/22/24] metoprolol tartrate 50 mg tablet 25 mg PO DAILY 09/10/22 [History Confirmed 04/22/24] potassium chloride 20 mEq tablet,extended release 40 meq PO DAILY 09/10/22 [History Confirmed 04/22/24] Discharge Plan Discharge Patient Disposition: Xfer Other Condition: Stable Prescriptions: No Action furosemide 40 mg tablet 40 mg PO DAILY multivitamin [Multiple Vitamins] Tablet 1 tab PO DAILY Eliquis 5 mg Tablet 5 mg PO BID Qty: 60 0RF (DME) glucometer testing kit See Rx Instructions .Route .MEDSUPPLY Qty: 1 0RF Rx Instructions: glucometer testing kit, check BS, TID, before meals lancets#100 strips#100 lisinopril 10 mg Tablet 5 mg PO DAILY metoprolol tartrate 50 mg Tablet 25 mg PO DAILY potassium chloride 20 mEq Tablet Extended Release 40 meq PO DAILY Referrals: Barbi Mendenhall MD [Primary Care Provider] - (We have notified your physician's clinic of the need for a follow-up appointment to be scheduled. If you have not heard from them within the next 2 business days, please call them directly. ) Patient Instructions: Dialysis Diet (DC), Hemodialysis (DC) Transfer Attestations Time Spent in Transfer Care: greater than 30 min Status at Transfer: Cognitive status at transfer: cognitively intact ; Behavioral status at transfer: cooperative ; Quality Metrics Clinical Quality Measures [ No reported AMI, CVA or VTE this stay] Coding Level of Care Code Acute Code for g Fwd Diagnoses LISSETTE (acute kidney injury) N17.9
[2024-05-04] MEDS: sodium chloride 0.9% 1,000 ML 30 ML IV (13:10)
--- NOTE | 2024-05-04 13:19 | P.ANESASSM_ITS ---
Pre-Anesthetic Assessment Height/Weight: Height 1.78 m Weight 98.033 kg Temp Pulse Resp BP Pulse Ox O2 Del Method O2 Flow Rate 98.3 F 73 18 160/71 92 Room Air 2 05/04/24 12:49 05/04/24 12:49 05/04/24 12:49 05/04/24 12:49 05/04/24 12:49 05/04/24 12:49 04/30/24 11:16 FiO2 40 04/27/24 23:25 Operation Date: 05/04/24 14:10 Proposed Procedures p Permacath Insertion(Not Applicable) - Tee Macdonald DO Familial anesthetic complications: None Was Beta Wanda taken within 24 hours: N/A Was Clonidine taken within 24 hours: N/A Last intake: Intake Last Liquid Date 05/04/24 Last Liquid Time 08:00 Last Solid Date 05/04/24 Last Solid Time 08:00 Social Tobacco and No alcohol Pulmonary Sleep Apnea CV/HEM Atrial Fibrillation, Coronary Artery Disease (stents, hx cardiac arrest), Hypertension and Myocardial Infarction (NSTEMI with this hospitalization) EF 55% A fib/ RVR and ICD shocks ARF on dialysis Anesthetic Plan ASA status: 4 Anesthesia: MAC Risk of > 500 ml blood loss (7ml/kg in children): No Medications/Allergies Home Medications Medication Instructions Recorded Confirmed Last Taken Type multivitamin (Multiple Vitamins 1 tab PO DAILY 09/19/20 04/22/24 1 Day Ago History tablet) ~04/21/24 apixaban 5 mg tablet (Eliquis) 5 mg PO BID #60 tabs 10/06/20 04/22/24 1 Day Ago Rx ~04/21/24 glucometer testing kit #1 ea 04/28/21 04/23/24 Unknown Rx furosemide 40 mg tablet 40 mg PO DAILY 05/02/21 04/22/24 1 Week Ago History ~04/15/24 lisinopril 10 mg tablet 5 mg PO DAILY 09/10/22 04/22/24 3 Days Ago History ~04/19/24 metoprolol tartrate 50 mg tablet 25 mg PO DAILY 09/10/22 04/22/24 09/10/22 History potassium chloride 20 mEq 40 meq PO DAILY 09/10/22 04/22/24 1 Day Ago History tablet,extended release ~04/21/24 Allergies Allergy/AdvReac Type Severity Reaction Status Date / Time No Known Allergies Allergy Verified 12/29/23 08:55 Current Medications Generic Name Dose Route Start Last Admin Trade Name Freq PRN Reason Stop Dose Admin Acetaminophen 1,000 mg 04/23/24 07:51 04/27/24 12:33 Acetaminophen 500 Mg Tablet PO 1,000 mg Q6H PRN Administration fever Amiodarone HCl 400 mg 04/25/24 09:00 05/04/24 08:29 Amiodarone 200 Mg Tablet PO 400 mg BID ANAY Administration Amlodipine Besylate 5 mg 05/02/24 09:00 05/04/24 08:30 Amlodipine 10 Mg Tablet PO 5 mg DAILY ANAY Administration Aspirin 81 mg 04/23/24 09:00 05/01/24 09:11 Aspirin 81 Mg Ec Tablet PO 81 mg DAILY ANAY Administration Enoxaparin Sodium 80 mg 04/22/24 13:30 04/27/24 14:48 Enoxaparin 80 Mg/0.8 Ml Syringe SUBCUT 80 mg Q24H ANAY Administration Folic Acid 1 mg 04/25/24 09:00 05/04/24 08:29 Folic Acid 1 Mg Tablet PO 1 mg DAILY ANAY Administration Piperacillin Sod/Tazobactam 50 mls @ 12.5 mls/hr 05/01/24 13:00 05/04/24 12:07 Sod 3.375 gm/ Sodium Chloride IV 12.5 mls/hr Q12H ANAY Administration Protocol Cefepime HCl 1,000 mg/ Sodium 50 mls @ 100 mls/hr 05/01/24 11:00 05/04/24 11:21 Chloride IV 100 mls/hr Q24H ANAY Administration Protocol Sodium Chloride 1,000 mls @ 30 mls/hr 05/04/24 13:00 05/04/24 13:10 Sodium Chloride 0.9% IV 05/05/24 12:59 30 mls/hr .Q24H ANAY Administration Lanolin 1 applic 04/24/24 19:19 04/25/24 19:31 Lanolin Oint 7 Gm TOPICAL 1 applic PRN PRN Administration DRYNESS Metoprolol Tartrate 25 mg 04/23/24 09:00 05/04/24 08:28 Metoprolol Tartrate 25 Mg Tablet PO 25 mg BID@0900,2100 ANAY Administration Multivitamins Therapeutic 1 tab 04/25/24 09:00 05/04/24 08:31 Multivitamin Therapeutic Tablet PO 1 tab DAILY ANAY Administration Pantoprazole Sodium 40 mg 04/25/24 19:00 05/04/24 08:31 Pantoprazole 40 Mg Sdv IVP 40 mg Q12H ANAY Administration Senna/Docusate Sodium 2 tab 04/25/24 18:00 05/04/24 08:29 Sennosides-Docusate Tablet PO 2 tab BID ANAY Administration Sodium Bicarbonate 650 mg 05/04/24 09:00 05/04/24 08:28 Sodium Bicarbonate 650 Mg Tablet PO 650 mg TID ANAY Administration Thiamine Mononitrate 100 mg 04/25/24 09:00 05/04/24 08:31 Thiamine 100 Mg Tablet PO 100 mg DAILY ANAY Administration Additional Medication Information Current Medications Acetaminophen (Acetaminophen 500 Mg Tablet) 1,000 mg PO Q6H PRN PRN Reason: fever Last Admin: 04/27/24 12:33 Dose: 1,000 mg Albuterol/Ipratropium (Ipratropium-Albuterol 3 Ml Neb) 3 ml INHALATION QID.RESPIRATORY ANAY Last Admin: 05/03/24 20:22 Dose: 3 ml Amiodarone HCl (Amiodarone 200 Mg Tablet) 400 mg PO BID ANAY Last Admin: 05/03/24 17:57 Dose: 400 mg Amlodipine Besylate (Amlodipine 10 Mg Tablet) 5 mg PO DAILY ANAY Last Admin: 05/03/24 08:42 Dose: 5 mg Aspirin (Aspirin 81 Mg Ec Tablet) 81 mg PO DAILY ANAY Last Admin: 05/01/24 09:11 Dose: 81 mg Enoxaparin Sodium (Enoxaparin 80 Mg/0.8 Ml Syringe) 80 mg SUBCUT Q24H ANAY Last Admin: 04/27/24 14:48 Dose: 80 mg Folic Acid (Folic Acid 1 Mg Tablet) 1 mg PO DAILY ANAY Last Admin: 05/03/24 08:41 Dose: 1 mg Piperacillin Sod/Tazobactam (Sod 3.375 gm/ Sodium Chloride) 50 mls @ 12.5 mls/hr IV Q12H [facility]; Protocol Last Admin: 05/04/24 01:45 Dose: 12.5 mls/hr Cefepime HCl 1,000 mg/ Sodium (Chloride) 50 mls @ 100 mls/hr IV Q24H [facility]; Protocol Last Infusion: 05/03/24 12:36 Dose: Infused Lanolin (Lanolin Oint 7 Gm) 1 applic TOPICAL PRN PRN PRN Reason: DRYNESS Last Admin: 04/25/24 19:31 Dose: 1 applic Metoprolol Tartrate (Metoprolol Tartrate 25 Mg Tablet) 25 mg PO BID@0900,2100 [facility] Last Admin: 05/03/24 20:43 Dose: 25 mg Multivitamins Therapeutic (Multivitamin Therapeutic Tablet) 1 tab PO DAILY [facility] Last Admin: 05/03/24 08:41 Dose: 1 tab Ondansetron HCl (Ondansetron 2 Mg/Ml Sdv 2 Ml) 4 mg IVP Q6H PRN PRN Reason: NAUSEA AND VOMITING Pantoprazole Sodium (Pantoprazole 40 Mg Sdv) 40 mg IVP Q12H [facility] Last Admin: 05/03/24 17:57 Dose: 40 mg Senna/Docusate Sodium (Sennosides-Docusate Tablet) 2 tab PO BID [facility] Last Admin: 05/03/24 17:57 Dose: 2 tab Sodium Bicarbonate (Sodium Bicarbonate 650 Mg Tablet) 1,300 mg PO TID [facility] Last Admin: 05/03/24 20:43 Dose: 1,300 mg Thiamine Mononitrate (Thiamine 100 Mg Tablet) 100 mg PO DAILY [facility] Last Admin: 05/03/24 08:41 Dose: 100 mg PFSH Anesthesia Medical History (Updated 04/30/24 @ 11:58 by Remington Pettit MD) History of pacemaker Sepsis Encounter for smoking cessation counseling ISAC (obstructive sleep apnea) Person under investigation for COVID-19 ICD (implantable cardioverter-defibrillator) in place Coronary artery disease Obstructive sleep apnea -severe per sleep study on 03/2019 NSVT (nonsustained ventricular tachycardia) HFrEF (heart failure with reduced ejection fraction) Hypertension Atrial fibrillation Community acquired pneumonia Chest pain CHF (congestive heart failure) Surgical History (Updated 04/30/24 @ 11:58 by Remington Pettit MD) Hx of hernia repair left side Status post bilateral knee replacements Family History Grandmother Hypertension Social History Smoking and tobacco/nicotine status: current some day tobacco/nicotine user cigarettes Packs smoked per day: 0.5 Years cigarettes smoked: 39 Alcohol intake: former Year of sobriety/quit date alcohol: 1 month ago Former alcohol use details: Half a pint of vodka, beer use daily Substance/Drug Use: never Data Anesthesia 05/04/24 04:20 05/04/24 04:20 Short CBC 05/03/24 05/04/24 Range/Units 04:20 04:20 WBC 15.41 H 14.78 H (3.29-11.43) 10^3/uL Hgb 10.20 L 10.20 L (11.27-16.99) g/dL Hct 30.4 L 30.7 L (37-53) % MCV 98.7 100.3 (82-101) fl Plt Count 390 354 (157-399) 10^3/cmm Neut % (Auto) 76.0 76.4 % Neut # (Auto) 11.71 H 11.29 H (1.8-7.7) 10^3/uL BMP 05/03/24 05/04/24 04:20 04:20 Sodium 138 138 Potassium 4.1 4.0 Chloride 100 99 Carbon Dioxide 23 23 BUN 64 H 67 H Creatinine 9.2 H* 10.1 H* Glucose 108 94 Calcium 7.6 L 7.9 L Liver Function 05/03/24 05/04/24 Range/Units 04:20 04:20 Total Bilirubin 0.3 0.3 (0.15-1.2) mg/dL AST 39 27 (0-40) U/L ALT 96 H 81 H (0-41) U/L Alkaline Phosphatase 68 63 (40-130) U/L Albumin 2.4 L 2.6 L (3.5-5.2) g/dL Cardiac Studies: 2 Echocardiogram Ultrasound 04/22/24
--- NOTE | 2024-05-04 13:39 | P.PN_ITS ---
Vitals/I&O/Wt Last Vital Signs Temp 98.3 F 05/04/24 12:49 Pulse 73 05/04/24 12:49 Resp 18 05/04/24 12:49 BP 160/71 05/04/24 12:49 Pulse Ox 92 05/04/24 12:49 O2 Del Method Room Air 05/04/24 12:49 O2 Flow Rate 2 04/30/24 11:16 FiO2 40 04/27/24 23:25 05/03/24 05/04/24 05/04/24 22:59 06:59 14:59 Intake Total 970 / 1980 120 / 2100 560 / 560 Output Total 100 / 100 100 / 100 Balance 870 / 1880 120 / 2000 460 / 460 Weight last 48 hrs Weight 216 lb 2 oz Weight 212 lb 8 oz Weight 206 lb 1.6 oz Physical Exam 2 Urinary Catheter Management: Ramirez: Cath Placed During This Visit: yes, but has since been removed by the nurse Reason for Continuing Indwelling Catheter: Not indwelling catheter Urinary Catheter Date of Insertion: 04/22/24 Urinary Catheter Time of Insertion: 14:20 Date Urinary Catheter Removed: 05/03/24 Time Urinary Catheter Discontinued: 12:30 Data 05/04/24 04:20 05/04/24 04:20 A&P Assessment and plan (1) Alcohol use: (2) HFrEF (heart failure with reduced ejection fraction): (3) NSTEMI (non-ST elevated myocardial infarction): (4) Acute renal failure: Qualifiers: Acute renal failure type: unspecified Qualified Code(s): N17.9 - Acute kidney failure, unspecified (5) Septic shock: Plan Permacath placement The risks and benefits of the procedure, including but not limited to, bleeding, infection, infection requiring Mediport removal antibiotic therapy and repeat surgery, damage to surrounding structures, scar, numbness, pain, pneumothorax requiring thoracostomy tube, were explained to the patient. He/She is understanding of the risks and wishes to proceed. Attestations 2 Medical Necessity Statement*: Per primary Coding Level of Care Code Acute Code for g Fwd Diagnoses Alcohol use Z78.9 HFrEF (heart failure with reduced ejection fraction) I50.20 NSTEMI (non-ST elevated myocardial infarction) I21.4 Acute renal failure, unspecified acute renal failure type N17.9 Acute renal failure type: unspecified Septic shock A41.9; R65.21
--- NOTE | 2024-05-04 14:22 | SC_ITS ---
WS: [id number] C-arm [place] for CVA [id number] REASON FOR EXAM: HEMODIALYSIS CATHETER PLACEMENT FINDINGS: A dialysis catheter has been placed from a right internal jugular approach. The distal end of the catheter is at the level of right atrium. There may be a kink in the tunneled portion of the catheter near the jugular vein entry site. SC/C-arm FL for CVA [id number] IMPRESSION: Right internal jugular dialysis catheter placement as above.
[2024-05-04 14:35] LABS: Iron 25 ug/dL (59-158); Percent Saturation 13.2 % (20-50); Total Iron Binding Capacity 188 mcg/dl; Unsaturated Iron Binding 163 ug/dL (112-347)
[2024-05-04 15:15] LABS: Ferritin 1404 ng/mL (30-400)
[2024-05-04] MEDS: lidocaine-epi 2% PF 1:200,000 20 mL SDV XX (15:15)
[2024-05-04] MEDS: heparin, porcine 1,000 unit/mL INJ 10 mL 10000 UNIT IRRIGATION (15:27)
--- NOTE | 2024-05-04 15:34 | XR_ITS ---
WS: [id number] XR chest 1V portable [id number] REASON FOR EXAM: STATUS POST HEMODIALYSIS CATHETER PLACEMENT FINDINGS: The dialysis catheter has straightened and the kink is no longer identified. Distal end of the cathet er remains in place just above the right atrium. Cardiac device of the left chest with trans left subclavian vein lead to the right ventricular apex. There is moderate tortuosity of the thoracic aorta and cardiomegaly. The alveolar consolidation in the left upper lobe is resolving. There is increased opacity in the left lower hemithorax with loss of definition of the diaphragm and left ventricle. This most likely is due to pleural effusion and left lower lung consolidation. Are re ticular nodular lung opacities seen on the previous examination in the right upper lung field are res olving. XR/XR chest 1V portable [id number] IMPRESSION: Properly positioned right internal jugular dialysis catheter. Resolving lung opacities bilaterally. Left lower lung consolidation and left pleural effusion.
--- NOTE | 2024-05-04 15:42 | PM.OP ---
Operative Report Date of procedure: May 04, 2024 Pre-op diagnosis: Acute renal failure Post-op diagnosis: same Procedure done: Permacath placement Intraoperative interpretation of fluoroscopy Implants: 27 cm permacath Specimens removed/disposition: None Surgeon: Tee Macdonald DO Anesthesia: MAC and Local Estimated blood loss (mL): 5 Complications: None apparent Brief History: This is a very pleasant 59-year-old gentleman in the hospital with acute renal failure. Nephrology requested permacath placement for longer-term hemodialysis. The risks and benefits were explained and documented. Procedure: Patient was taken to the operating room and placed supine on the operating room table. All bony prominences were padded. He was given IV sedation and monitored throughout the case by the anesthesia personnel. SCDs were placed and turned on. The arms were tucked to the side. Patient received Vancomycin preoperatively IV. The bilateral chest wall was prepped and draped in usual sterile fashion using chlorhexidine base prep. Sterile drapes were applied. We did procedure pause prior to beginning. An 18 gauge needle was placed in the right internal jugular vein under ultrasound guidance. Dark, nonpulsatile blood was aspirated. A guidewire was placed through the needle centrally toward the atrial/vena caval junction. Fluoroscopy visualized good placement. The needle was removed and the guidewire was clipped to the drape with a hemostat. Further local anesthetic was infiltrated in the soft tissues of the right chest wall and a #15 blade was used to make a vertical skin incision. A #15 blade was used to make a small skin jamaal around the guidewire insertion area. The permacath tubing was tunneled through the subcutaneous tissues up to the needle insertion location. Serial dilators were used to serially dilate over the guidewire . A dilator with a peel-away sheath was placed over the guidewire and placed centrally. The guidewire was removed as well as the dilator and the permacath was fed into the split sheath. The split sheath was removed. Both ports were aspirated to reveal dark blood and were flushed with saline only as the patient has a heparin allergy. Final fluoroscopy visualization showed no kink in the catheter and the tip of the permacath tubing overlying the right atrium. There was no obvious pneumothorax. Both skin incisions were thoroughly irrigated and suctioned dry. Meticulous hemostasis noted. The internal jugular access site was closed with 4-0 Vicryl in a subcuticular fashion. The skin overlying the permacath was closed in a similar manner. The permacath was then sutured into place using 2-0 nylon in a simple interrupted fashion. skin glue was applied as a topical dressing. This was allowed to dry. Patient was awakened from anesthesia and transferred via her cart to the recovery room in stable condition. All needle, sponge, and instrument counts were correct per the operating personnel x2 counts.
--- NOTE | 2024-05-04 16:05 | ANE.PACU2 ---
Inpatient post-anesthesia follow up: Airway intact: Yes Vital signs: Temperature 98.3 F Pulse Rate 74 Respiratory Rate 20 Blood Pressure 159/78 Pulse Oximetry 94 Oxygen Delivery Me thod Room Air Oxygen Flow Rate 2 Fraction of Inspir ed Oxygen 40 Hydration adequate: Yes Nausea and vomiting: No Pain level: 1 Mental status: Baseline
--- NOTE | 2024-05-04 16:50 | PC.NURSE ---
Called report to Ilda Rod RN at [facility]
[2024-05-04] MEDS: acetaminophen 500 mg Tablet 1000 MG PO (20:55)
[2024-05-04] MEDS: HYDROcodone-acetaminophen 7.5-325 mg Tablet 1 TAB PO (21:23)
[2024-05-05 14:59] LABS: Glomerular Bsmt Membrane IGG <1.0 AI
== END 2024-05-04 21:37 | disposition short-term general hospital (02) | DRG 871 ==
LOC: ER 11:17 → ICU 11:35 → MEDSURG 04-27 00:34
PROVIDERS: Internal Medicine; Internal Medicine Nephrology; Surgery; Admitting Provider Internal Medicine; Emergency Provider Emergency Medicine; PCP Family Medicine; Visit Provider Internal Medicine
PROC: 0JH63XZ Insertion of Tunneled Vascular Access Device into Chest Subcutaneous Tissue and Fascia, Percutaneous Approach (ICD-10-PCS; principal; 2024-05-04 14:00)
DX: A41.9 Sepsis, unspecified organism (principal); G93.41 Metabolic encephalopathy; J18.9 Pneumonia, unspecified organism; R65.21 Severe sepsis with septic shock; I21.4 Non-ST elevation (NSTEMI) myocardial infarction; N17.0 Acute kidney failure with tubular necrosis; I42.8 Other cardiomyopathies; I50.20 Unspecified systolic (congestive) heart failure; I48.19 Other persistent atrial fibrillation; B37.89 Other sites of candidiasis; M62.82 Rhabdomyolysis; E87.1 Hypo-osmolality and hyponatremia; S09.90XA Unspecified injury of head, initial encounter; W01.0XXA Fall on same level from slipping, tripping and stumbling without subsequent striking against object, initial encounter; F10.10 Alcohol abuse, uncomplicated; I11.0 Hypertensive heart disease with heart failure; Z95.810 Presence of automatic (implantable) cardiac defibrillator; F17.210 Nicotine dependence, cigarettes, uncomplicated; Z86.74 Personal history of sudden cardiac arrest; I25.10 Atherosclerotic heart disease of native coronary artery without angina pectoris; G47.33 Obstructive sleep apnea (adult) (pediatric); Z96.653 Presence of artificial knee joint, bilateral; J44.9 Chronic obstructive pulmonary disease, unspecified; E11.9 Type 2 diabetes mellitus without complications
CPT/HCPCS: 36415; 36573; 36592; 36600; 51702; 51798; 70450; 71045; 71250; 72125; 76770; 77001; 80048; 80051; 80053; 80202; 81001; 82274; 82306; 82310; 82330; 82436; 82533; 82550; 82570; 82728; 82803; 82805; 83520; 83540; 83550; 83605; 83735; 83880; 83970; 84100; 84133; 84145; 84156; 84300; 84443; 84484; 84550; 85007; 85025; 85610; 86036; 86038; 86140; 86225; 86403; 86706; 86803; 87040; 87070; 87086; 87106; 87205; 87340; 87493; 87641; 90935; 92526; 92610; 93005; 93306; 94640; 94660; 96365; 96366; 96367; 96372; 96375; 96376; 97110; 97116; 97161; 97530; 99291; A4222; C1751; C9113; J0131; J0283; J0360; J0456; J0612; J0692; J0696; J1644; J1650; J1940; J2060; J2501; J2543; J2704; J2919; J3010; J3370; J3411; J3490; J7030; J7040; J7050; J7070; J7626; Q3014

== ENCOUNTER 2024-05-26 05:48 | Day surgery (SDC) | payer OTHER, SELFPAY ==
--- NOTE | 2024-05-26 05:53 | W.PM.OPSFHP ---
Same Day Surgery H&P Indication for Procedure/HPI DATE OF PROCEDURE: May 26, 2024 CHIEF COMPLAINT/INDICATIONFOR SURGICAL PROCEDURE: need of screening colonoscopy PREOP DIAGNOSIS: need of screening colonoscooy PLANNED PROCEDURE: Operation Date: 05/26/24 07:00 Proposed Procedures p : [id number] Colon, G0121 low risk colon Z12.11(Not Applicable) - Tereso Alvarez MD Medications/Allergies* Home Medications Medication Instructions Recorded Confirmed Type multivitamin (Multiple Vitamins 1 tab PO DAILY 09/19/20 05/24/24 History tablet) lisinopril 10 mg tablet 5 mg PO DAILY 09/10/22 05/24/24 History metoprolol tartrate 50 mg tablet 25 mg PO DAILY 09/10/22 05/24/24 History Allergies/Adverse Reactions Allergy/AdvReac Type Severity Reaction Status Date / Time No Known Allergies Allergy Verified 05/24/24 09:38 Pertinent History/Comorbid Conditions* Medical History (Updated 05/05/24 @ 00:01 by MELLY Cano) Rhabdomyolysis ATN (acute tubular necrosis) Transaminitis Heart failure with improved ejection fraction (HFimpEF) LISSETTE (acute kidney injury) Tobacco use Alcohol use Acute renal failure Acute metabolic encephalopathy Septic shock Implantable cardioverter-defibrillator (ICD) discharge NSTEMI (non-ST elevated myocardial infarction) Head injury Pneumonia Exertional dyspnea Type 2 diabetes mellitus Non-ischemic cardiomyopathy History of pacemaker Sepsis Encounter for smoking cessation counseling ISAC (obstructive sleep apnea) Person under investigation for COVID-19 ICD (implantable cardioverter-defibrillator) in place Coronary artery disease Obstructive sleep apnea -severe per sleep study on 03/2019 NSVT (nonsustained ventricular tachycardia) HFrEF (heart failure with reduced ejection fraction) Hypertension Atrial fibrillation Community acquired pneumonia Chest pain CHF (congestive heart failure) Surgical History (Updated 04/30/24 @ 11:58 by Remington Pettit MD) Hx of hernia repair left side Status post bilateral knee replacements Family History (Updated 09/19/20 @ 16:18 by Param Montague MD) Hypertension Grandmother Social History Smoking and tobacco/nicotine status: current some day tobacco/nicotine user cigarettes Packs smoked per day: 0.5 Years cigarettes smoked: 39 Alcohol intake: former Year of sobriety/quit date alcohol: 1 month ago Former alcohol use details: Half a pint of vodka, beer use daily Substance/Drug Use: never Pertinent Exam Findings alert, oriented x 3, clear to auscultation bilaterally, regular rate & rhythm and operative site marked Recommendations Surgery/Procedure today Coding Level of Care Code Acute Code for Chg Andrews
[2024-05-26 06:02] VITALS: BP 156/91; PULSE 73; RESP 16; TEMP 36.7; O2SAT 97
[2024-05-26 06:05] VITALS: BMI 26.4
[2024-05-26] MEDS: sodium chloride 0.9% 1,000 ML 30 ML IV (06:14)
--- NOTE | 2024-05-26 06:34 | ANES.PREANE2 ---
Pre-Anesthetic Assessment Height/Weight: Height 1.78 m Weight 83.461 kg Temp Pulse Resp BP Pulse Ox O2 Del Method 98.0 F 73 16 156/91 97 Room Air 05/26/24 06:02 05/26/24 06:02 05/26/24 06:02 05/26/24 06:02 05/26/24 06:02 05/26/24 06:02 Preop Diagnosis: need of screening colonoscooy Operation Date: 05/26/24 07:00 Proposed Procedures p : 16166 Colon, G0121 low risk colon Z12.11(Not Applicable) - Tereso Alvarez MD Familial anesthetic complications: None Was Beta Wanda taken within 24 hours: Yes Was Clonidine taken within 24 hours: N/A Last intake: Intake Last Liquid Date 05/26/24 Last Liquid Time 05:45 Last Solid Date 05/24/24 Last Solid Time 20:00 Last Intake: 06:00 (Plain black coffee 599) Social Alcohol (1 pint a day previously, now a beer every other day) and Tobacco 5-10 cigs a day pack(s) per day Exam alert, oriented x 3, clear to auscultation bilaterally and regular rate & rhythm Airway Submandibular: within normal limits Cervical ROM: within normal limits Mallampati: Class II Dentition: full History/ROS No significant history except as noted and No significant complaints Pulmonary Chronic Obstructive Pulmonary Disease Pneumonia in March CV/HEM Atrial Fibrillation, Arrythmia, Coronary Artery Disease, Hypertension and Myocardial Infarction (Stents placed 2020 with pacemaker/defib) Chronic Renal Failure (ESRD) Dialysis last done on Thursday, goes 3 days a week. Skipped Thursday Hepatic None reported GI None reported Metabolic None reported Musc/skel Gout Neuropsych Neuropathy Anesthetic Plan ASA status: 4 Anesthesia: Anesthesia Evaluation, General and MAC Risk of > 500 ml blood loss (7ml/kg in children): No Medications/Allergies Home Medications Medication Instructions Recorded Confirmed Last Taken Type multivitamin (Multiple Vitamins 1 tab PO DAILY 09/19/20 05/26/24 05/26/24 History tablet) apixaban 5 mg tablet (Eliquis) 5 mg PO BID #60 tabs 10/06/20 05/24/24 05/09/24 Rx glucometer testing kit #1 ea 04/28/21 04/23/24 Unknown Rx lisinopril 10 mg tablet 5 mg PO DAILY 09/10/22 05/26/24 05/26/24 History metoprolol tartrate 50 mg tablet 25 mg PO DAILY 09/10/22 05/26/24 05/26/24 History Allergies Allergy/AdvReac Type Severity Reaction Status Date / Time No Known Allergies Allergy Verified 05/24/24 09:38 Current Medications Generic Name Dose Route Start Last Admin Trade Name Freq PRN Reason Stop Dose Admin Sodium Chloride 1,000 mls @ 30 mls/hr 05/26/24 06:00 05/26/24 06:14 Sodium Chloride 0.9% IV 30 mls/hr .Q24H ANAY Administration PFSH Anesthesia Medical History (Updated 05/05/24 @ 00:01 by MELLY Cano) Rhabdomyolysis ATN (acute tubular necrosis) Transaminitis Heart failure with improved ejection fraction (HFimpEF) LISSETTE (acute kidney injury) Tobacco use Alcohol use Acute renal failure Acute metabolic encephalopathy Septic shock Implantable cardioverter-defibrillator (ICD) discharge NSTEMI (non-ST elevated myocardial infarction) Head injury Pneumonia Exertional dyspnea Type 2 diabetes mellitus Non-ischemic cardiomyopathy History of pacemaker Sepsis Encounter for smoking cessation counseling ISAC (obstructive sleep apnea) Person under investigation for COVID-19 ICD (implantable cardioverter-defibrillator) in place Coronary artery disease Obstructive sleep apnea -severe per sleep study on 03/2019 NSVT (nonsustained ventricular tachycardia) HFrEF (heart failure with reduced ejection fraction) Hypertension Atrial fibrillation Community acquired pneumonia Chest pain CHF (congestive heart failure) Surgical History (Updated 04/30/24 @ 11:58 by Remington Pettit MD) Hx of hernia repair left side Status post bilateral knee replacements Family History Grandmother Hypertension Social History Smoking and tobacco/nicotine status: current some day tobacco/nicotine user cigarettes Packs smoked per day: 0.5 Years cigarettes smoked: 39 Alcohol intake: former Year of sobriety/quit date alcohol: 1 month ago Former alcohol use details: Half a pint of vodka, beer use daily Substance/Drug Use: never Data Anesthesia Cardiac Studies: Echocardiogram Ultrasound 04/22/24
[2024-05-26 08:47] VITALS: BP 113/65; PULSE 66; RESP 18; TEMP 36.6; O2SAT 92
--- NOTE | 2024-05-26 08:52 | XR_ITS ---
WS: [id number] Exam: XR abdomen 1V* [id number] Date/Time of Exam: 05/26/2024 8:52 AM Reason For Exam: Post colonoscopy clips Moderate amount of gas in the large bowel apparently secondary to recent colonoscopy. No bowel obstru ction or pneumoperitoneum. 2 metallic densities superimpose the LEFT iliac wing and may represent mar kers. No sign of organ enlargement. Spondylosis and moderately advanced degenerative change of the priti mbar spine and dextroscoliosis. XR/XR abdomen 1V* [id number] IMPRESSION: 1. No acute process. 2. Moderate gaseous dilatation of the colon apparently secondary to recent colo noscopy. 2 metallic markers superimpose the region of the LEFT colon. Significa nce is undetermined.
[2024-05-26 08:57] VITALS: BP 124/75; PULSE 68; RESP 18; O2SAT 98
[2024-05-26 09:10] VITALS: BP 154/72; PULSE 66; RESP 18; O2SAT 98
--- NOTE | 2024-05-26 09:25 | ANE.PACU2 ---
Inpatient post-anesthesia follow up: Airway intact: Yes Vital signs: Temperature 97.8 F Pulse Rate 66 Respiratory Rate 18 Blood Pressure 154/72 Pulse Oximetry 98 Oxygen Delivery Me thod Room Air Oxygen Flow Rate Fraction of Inspir ed Oxygen Hydration adequate: Yes Nausea and vomiting: No Pain level: 1 Mental status: Baseline
== END 2024-05-26 09:26 | disposition home or self-care (01) ==
PROVIDERS: PCP Family Medicine; Visit Provider Surgery
PROC: 0DJD8ZZ Inspection of Lower Intestinal Tract, Via Natural or Artificial Opening Endoscopic (ICD-10-PCS; CPT 45378; principal; 2024-05-26 07:00)
DX: Z12.11 Encounter for screening for malignant neoplasm of colon (principal); D12.4 Benign neoplasm of descending colon; D12.5 Benign neoplasm of sigmoid colon; K57.30 Diverticulosis of large intestine without perforation or abscess without bleeding; I25.2 Old myocardial infarction; E11.9 Type 2 diabetes mellitus without complications; G47.33 Obstructive sleep apnea (adult) (pediatric); I50.20 Unspecified systolic (congestive) heart failure; F17.210 Nicotine dependence, cigarettes, uncomplicated; I48.91 Unspecified atrial fibrillation; I11.0 Hypertensive heart disease with heart failure; Z95.5 Presence of coronary angioplasty implant and graft
CPT/HCPCS: 45380; 45385; 74018; 88305; J2704; J3490; J7030

== ENCOUNTER → 2024-06-15 11:25 | Outpatient (BNVA) | payer OTHER, SELFPAY | PROVIDERS: PCP Family Medicine; Visit Provider Surgery | DX: Z09 Encounter for follow-up examination after completed treatment for conditions other than malignant neoplasm (principal) | CPT/HCPCS: 99213 ==

== ENCOUNTER 2025-03-28 10:57 | Outpatient (CLI) | payer OTHER, SELFPAY ==
[2025-03-28 11:59] LABS: Basophils # 0.1 10^3/uL (0.0-0.1); Basophils % 0.7 %; Eosinophils # 0.3 10^3/uL (0.0-0.8); Lymphocytes % 18.8 %; Mean Corpuscular HGB Conc 34.1 g/dL (30-55); Mean Corpuscular Hemoglobin 33.5 pg (27-33); Mean Corpuscular Volume 98.1 fl (82-101); Mean Platelet Volume 9.7 fL (7.4-10.4); Monocytes # 0.8 10^3/uL (0.2-0.9); Neutrophils # 7.23 10^3/uL (1.8-7.7); Neutrophils % 68.8 %; Nucleated Red Blood Cells % 0 %; Platelet Count 183 10^3/cmm (157-399); Red Blood Count 4.18 10^6/uL (3.85-5.65)
[2025-03-28 12:18] LABS: Albumin Level 4.5 g/dL (3.5-5.2); Anion Gap 15.2 (5-19); Blood Urea Nitrogen 18 mg/dL (8-23); Calcium 9.3 mg/dL (8.5-10.5); Carbon Dioxide 24 mmol/L (22-29); Chloride 101 mmol/L (98-107); Glomerular Filtration Rate 76.2 mL/min (90-130); Glucose 120 mg/dL (65-115); Potassium 4.2 mmol/L (3.5-5.1); Sodium 136 mmol/L (136-145)
[2025-03-28 12:20] LABS: Calcium 9.5 mg/dL (8.5-10.5)
[2025-03-28 12:26] LABS: Parathyroid Hormone 42.4 pg/mL (15-65)
[2025-03-28 12:33] LABS: 25 Hydroxy Vitamin D 58 ng/mL (30-100)
== END 2025-03-28 10:58 | disposition home or self-care (01) ==
PROVIDERS: PCP Family Medicine; Visit Provider Registered Nurse
DX: N18.32 Chronic kidney disease, stage 3b (principal); N17.0 Acute kidney failure with tubular necrosis
CPT/HCPCS: 36415; 80069; 82306; 82310; 83970; 85025